=== PATIENT | female | born 1965 | race Caucasian/White ===

== ENCOUNTER 2023-01-08 14:18 | Outpatient (OUT) | payer OTHER, SELFPAY ==
--- NOTE | 2023-01-08 14:32 | US_ITS ---
[address] [address] Patient Name: BALA SULTANA MRN: [id number] date: 1965 Sex: F Assigned Patient Location: Current Patient Location: Accession/Order Number: [id number] Exam Date: 01/08/2023 14:31 Report Date: 01/09/2023 06:47 At the request of: YANNICK BATRES Procedure: US thyroid EXAMINATION: US thyroid HISTORY: Thyroid nodule E04.1 COMPARISON: No relevant comparison available. FINDINGS: RIGHT LOBE: Contain several small colloid cysts. Lobe size: 5.4 x 1.5 x 1.4 cm LEFT LOBE: Contains 2 separate 6 mm TR 3 nodules, one within superior pole, one within mid body. Several small colloid cysts, and a prominent 19 mm colloid cyst. Lobe size: 5.7 x 2.1 x 1.7 cm ISTHMUS: Contains a small colloid cyst. Thickness: 1 mm IMPRESSION: 1. The thyroid gland contains multiple benign-appearing colloid cysts and 2 small TR 3 nodules within the left lobe. Consider follow-up imaging in 3-5 years. TR3 (mildly suspicious): > 1.5 cm, follow-up ultrasound in 1, 3, and 5 years. > 2.5 cm, fine needle aspiration. Electronically authenticated by: JNENIFER NICOLAS Date: 01/09/2023 06:47
== END 2023-01-08 14:19 | disposition home or self-care (01) ==
LOC: US 14:20
PROVIDERS: PCP Family Medicine; Visit Provider Family Medicine
DX: E04.2 Nontoxic multinodular goiter (principal)
CPT/HCPCS: 76536

== ENCOUNTER 2023-02-05 10:33 | Outpatient (OUT) | payer OTHER, SELFPAY ==
--- NOTE | 2023-02-05 10:43 | XR_ITS ---
The [address] [address] Patient Name: BALA SULTANA MRN: [id number] date: 1965 Sex: F Assigned Patient Location: [facility] Current Patient Location: [facility] Accession/Order Number: [id number] Exam Date: 02/05/2023 11:05 Report Date: 02/05/2023 12:59 At the request of: YANNICK BATRES Procedure: XR lumbar spine 2-3V EXAMINATION: XR lumbar spine 2-3V HISTORY: Low Back Pain M54.50 ; acute left lumbar pain; no known injury COMPARISON: XR KUB 01/28/2020, XR L-spine 01/25/2016 FINDINGS: BONES: Moderate left convex curvature lumbar spine. Mild-moderate degenerative facet arthropathy L3-4 through L5-S1. No fracture or significant spondylolisthesis. DISC SPACES: Marked narrowing L2-3. Mild narrowing L3-4, L4-5. PARASPINOUS: Negative. No paraspinous abnormality is seen. OTHER: Negative. XR/XR lumbar spine 2-3V IMPRESSION: 1. L2-3 marked degenerative disc disease; progressed since prior studies. 2. Slight increase in levocurvature of lumbar spine. Electronically authenticated by: JENNIFER NICOLAS Date: 02/05/2023 12:59
== END 2023-02-05 10:34 | disposition home or self-care (01) ==
LOC: RAD 10:35
PROVIDERS: PCP Family Medicine; Visit Provider Family Medicine
DX: M54.50 Low back pain, unspecified (principal)
CPT/HCPCS: 72100

== ENCOUNTER 2023-02-11 04:31 | Emergency (ER) | payer OTHER, SELFPAY ==
[2023-02-11 04:36] VITALS: BP 155/103; PULSE 98; RESP 16; TEMP 36.6; O2SAT 98; BMI 23.7
--- NOTE | 2023-02-11 04:55 | ED_ITS ---
HPI - Back Pain/Injury General Chief Complaint: Back Pain/Injury Stated Complaint: BACK PAIN Time Seen by Provider: 02/11/23 04:48 Source: patient History of Present Illness HPI Narrative: This 57 year old female with a history of back pain presents for evaluation of 3 weeks of ongoing left flank pain. The patient states that approximately 3 weeks ago she was working in her garden and did not experience any pain. She got up to take a walk in her words and started to feel pain in her left flank. She has been seen by her family physician and had x-rays done. Her x-ray showed marked L2-L3 degenerative disc disease which has progressed since prior studies and a slight increase in the level curvature of the lumbar spine. She does have a history of kidney stones. She has taken a Medrol Dosepak 3 times and states that when she is taking the steroids it does help her somewhat however as it wears off she starts experiencing the pain again. She does have some mild nausea. She denies any dysuria or hematuria. There is no focal weakness numbness or tingling. She denies any chest pain or shortness of breath. She has no abdominal pain. She has not had any bowel or bladder dysfunction or constipation or incontinence. She has an appointment with Dr Marquis, neurosurgery at [facility] on Friday OARRs reviewed and shows no recent activity besides flexeril Related Data Home Medications Medication Instructions Recorded Confirmed methylprednisolone 4 mg tablets in mg 02/11/23 a dose pack sertraline 25 mg tablet (Zoloft) 12.5 mg PO DAILY 02/11/23 02/11/23 Allergies Allergy/AdvReac Type Severity Reaction Status Date / Time adhesive Allergy Intermediate Verified 02/11/23 04:42 Review of Systems ROS Status of ROS 10 or more systems reviewed and unremarkable except as noted in history and below [facility] Social History Smoking status: Never smoker Exam Narrative Exam Narrative: Nurses note and vital signs reviewed and patient is not hypoxic. General: The patient appears well, However she is uncomfortable and is on her knees bent over on the stretcher trying to stretch out her back, no respiratory distress Skin: Warm, dry, no pallor noted. There is no rash noted. Head: Normocephalic, atraumatic Eye: Normal conjunctiva, no drainage, EOMI. PERRL Ears, Nose, Mouth, and Throat: oral mucosa is moist. Cardiovascular: Regular Rate and Rhythm Respiratory: Patient is in no distress, no accessory muscle use, lungs are clear to auscultation, no wheezing, rales or rhonchi Back: No reproducible tenderness in the left flank area, no midline bony vertebral tenderness or step-off, no skin rash GI: Normal bowel sounds, no tenderness to palpation, no masses appreciated. No rebound, guarding, or rigidity noted. No tenderness along the distribution of the left ureter Musculoskeletal: The patient has no evidence of calf tenderness, no pitting edema, symmetrical pulses noted bilaterally Neurological: A&O x4, normal speech, upper and lower extremity strength and sensation is intact, no saddle anesthesia Psychiatric: Cooperative, mildly anxious Constitutional Vital Signs, click to edit/add: Last Vital Signs Temp 97.9 F 02/11/23 04:36 Pulse 98 H 02/11/23 04:36 Resp 16 02/11/23 04:36 BP 155/103 H 02/11/23 04:36 Pulse Ox 98 02/11/23 04:36 O2 Del Method Room Air 02/11/23 04:36 Course Vital Signs Vital signs: Vital Signs Temperature 97.9 F 02/11/23 04:36 Pulse Rate 98 H 02/11/23 04:36 Respiratory Rate 16 02/11/23 04:36 Blood Pressure 155/103 H 02/11/23 04:36 Pulse Oximetry 98 02/11/23 04:36 Oxygen Delivery Method Room Air 02/11/23 04:36 Temperature 97.9 F 02/11/23 04:36 Pulse Rate 98 H 02/11/23 04:36 Respiratory Rate 16 02/11/23 04:36 Blood Pressure 155/103 H 02/11/23 04:36 Pulse Oximetry 98 02/11/23 04:36 Oxygen Delivery Method Room Air 02/11/23 04:36 MDM - Back Pain/Injury MDM Narrative Medical decision making narrative: This 57-year-old female with chronic low back pain who has been seen in the past by neurosurgery presents for evaluation of 3 weeks of left flank and low back pain. She states she has not been able sleep for the last 2 days. There is no radiation into her buttocks, hips or lower legs. She recently had x-rays done that showed some narrowing at L2-L3 and L3-L4 and L4-L5. She has been on 3 Medrol Dosepaks prescribed by her family physician and referred to neurosurgery which she will see tomorrow. She denies any bowel or bladder dysfunction. She has no chest pain or shortness of breath. Her neuro exam and physical exam were benign however she was obviously uncomfortable. She does have a history of kidney stones and was thinking she may be passing a stone. Urinalysis was negative for blood or infection. CT scan of the lumbar spine which is included in the body this report shows degenerative changes in the lumbar spine and stones in her kidneys but none in the ureters and UA is negative for blood or infection. The patient was driving and I explained to her that I could not offer her any narcotic analgesics or strong muscle relaxants but she did call for a ride and was medicated with 4 mg of IM morphine, 5 mg of IM Valium, Zofran and 60 mg of IM Toradol. She was beginning to relax and feel better and was discharged home with her friend. She was given a prescription for percocet and has flexeril at home. Her CT scan also showed constipation and she was given a Rx for colace. She remains hemodynamically and neurologically stable for discharge and plans to call the neurosurgeon that she has seen in the past, and has an appointment with later this week and see if she can get in sooner. Medical Records Medical records narrative: The [address] [address] [address] Scan Report Signed Patient: BALA SULTANA MR#: [id number] : 1965 Acct:[id number] Age/Sex: 57 / F ADM Date: 02/11/23 Loc: ER Attending Dr: Ordering Physician: Roque Patel Date of Service: 02/11/23 Procedure(s): CT abdomen pelvis wo con Accession Number(s): [id number] cc: YANNICK BATRES ~ The [address] [address] Patient Name: BALA SULTANA MRN: [id number] date: 1965 Sex: F Assigned Patient Location: ER Current Patient Location: ER Accession/Order Number: [id number] Exam Date: 02/11/2023 05:00 Report Date: 02/11/2023 05:30 At the request of: ROQUE MARKER Procedure: CT abdomen pelvis wo con EXAM: CT abdomen pelvis wo con HISTORY: left flank pain symptoms for 3 weeks. History of kidney stones. COMPARISON: CT 08/01/2021. TECHNIQUE: Multiple axial CT images of the abdomen and pelvis were obtained without IV contrast. 2D coronal and sagittal MIP reformations were submitted for review. Dose reduction techniques were achieved by using automated exposure control and/or adjustment of mA and/or kV according to patient size and/or use of iterative reconstruction technique. FINDINGS: LUNG BASES: Visualized lung bases appear clear. No pleural effusion is identified. LYMPH NODES: No retroperitoneal, mesenteric or pelvic lymphadenopathy. ABDOMINAL AORTA: No aortic aneurysm identified. LIVER: Liver contour appears smooth. Low-density cyst in the right hepatic lobe measures 0.7 cm. BILIARY TREE AND GALLBLADDER: No intrahepatic or extrahepatic bile duct dilatation. Gallbladder is fluid distended without calcified gallstones. PANCREAS: Normal in size without masses or ductal dilatation. No peripancreatic inflammatory changes. SPLEEN: Normal in size without focal lesions. ADRENAL GLANDS: Normal bilaterally, without nodules. KIDNEYS/URINARY BLADDER: The kidneys appear symmetric in size. No parenchymal lesions identified. Several nonobstructing renal stones are seen bilaterally, the largest in the right measuring 4 mm. No ureteral stone or hydronephrosis identified. The urinary bladder appears unremarkable. GASTROINTESTINAL TRACT: Moderate stool is seen throughout the course of the colon. No bowel obstruction is identified. The stomach and duodenum appear unremarkable. Appendix appears normal. PERITONEAL CAVITY AND SURFACES: No free fluid. No free intraperitoneal air. REPRODUCTIVE ORGANS: Uterus and adnexa are unremarkable. ABDOMINAL WALL: Small noninflamed fat-containing umbilical hernia. OSSEOUS STRUCTURES: No aggressive appearing osseous lesions. No compression fracture is identified. Convex left curvature of the thoracolumbar spine. Moderate degenerative disc disease L2-3. CT/CT abdomen pelvis wo con IMPRESSION: 1. Bilateral nonobstructing renal stones. No ureteral stone or hydronephrosis. 2. Constipation. No bowel obstruction. 3. Normal CT appearance of the appendix. Lab Data Labs: Lab Results 02/11/23 Range/Units 05:35 Urine Color Lt. yellow (YELLOW) Urine Clarity Clear (CLEAR) Urine pH 7.0 (5.0-9.0) Ur Specific [place] 1.020 (1.005-1.025) Urine Protein Negative (NEG/TRACE) mg/dL Urine Glucose (UA) Negative (NEGATIVE) mg/dL Urine Ketones Negative (NEGATIVE) mg/dL Urine Occult Blood Trace-i (NEGATIVE) Urine Nitrite Negative (NEGATIVE) Urine Bilirubin Negative (NEGATIVE) Urine Urobilinogen 0.2 (0.2-1.0) EU/dL Ur Leukocyte Esterase Negative (NEGATIVE) Discharge Plan Discharge Chief Complaint: Back Pain/Injury Clinical Impression: Lumbar back pain, Thoracic back pain, Constipation Patient Disposition: Home, Self-Care Time of Disposition Decision: 05:53 Condition: Good Prescriptions / Home Meds: No Action methylprednisolone 4 mg tablets,dose pack sertraline [Zoloft] 25 mg tablet 12.5 mg PO DAILY Instructions: Constipation (ED), Thoracic Pain (ED), Back Pain (ED), Lower Back Exercises (ED) Stand Alone Forms: Portal Instructions Referrals: YANNICK BATRES [Primary Care Provider] - 1 week
[2023-02-11] MEDS: ONDANSETRON 4 MG RAPDIS TABLET SL (05:11)
[2023-02-11] MEDS: DIAZEPAM 5 MG/ML - 2 ML INJ SYRINGE IM (05:34)
[2023-02-11] MEDS: KETOROLAC TROMETHAMINE 60 MG/2 ML VIAL IM (05:35)
[2023-02-11] MEDS: MORPHINE SULFATE 4 MG/ML VIAL IM (05:36)
[2023-02-11 05:46] LABS: Bilirubin Urine NEGATIVE (NEGATIVE); Blood Urine TRACE-I (NEGATIVE); Clarity Urine CLEAR (CLEAR); Color Urine LT. YELLOW (YELLOW); Glucose Urine UA NEGATIVE (NEGATIVE); Ketones Urine NEGATIVE (NEGATIVE); Leukocyte Esterase Urine NEGATIVE (NEGATIVE); Nitrite Urine NEGATIVE (NEGATIVE); Protein Urine NEGATIVE (NEG/TRACE); Urobilinogen Urine 0.2 EU/dL (0.2-1.0)
[2023-02-11 05:56] LABS: WBC Urine 0-2 #/HPF (NONE SEEN)
[2023-02-11 05:57] LABS: Bacteria Urine NONE SEEN #/HPF (NONE SEEN); Cast Seen? NONE SEEN #/LPF (NONE SEEN); Crystals Seen? None Seen #/HPF (None Seen); Mucus Urine TRACE (NONE SEEN); Squamous Epithelial Cell Urine RARE #/LPF (NONE/RARE); Urine Culture Indicated NO
== END 2023-02-11 06:15 | disposition home or self-care (01) ==
PROVIDERS: Emergency Provider Emergency Medicine; PCP Family Medicine
DX: K59.00 Constipation, unspecified (principal); M54.50 Low back pain, unspecified; M54.6 Pain in thoracic spine; M51.36 Other intervertebral disc degeneration, lumbar region; Z87.442 Personal history of urinary calculi; Z79.899 Other long term (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 therapy
CPT/HCPCS: 74176; 81001; 96372; 99284

== ENCOUNTER 2023-03-05 11:06 | Outpatient (OUT) | payer OTHER, SELFPAY ==
--- NOTE | 2023-03-05 11:43 | XR_ITS ---
[address] [address] Patient Name: BALA SULTANA MRN: [id number] date: 1965 Sex: F Assigned Patient Location: [facility] Current Patient Location: [facility] Accession/Order Number: [id number] Exam Date: 03/05/2023 11:30 Report Date: 03/05/2023 12:04 At the request of: YANNICK BATRES Procedure: XR lumbar spine min 4V EXAM: XR lumbar spine min 4V HISTORY: Low Back Pain M54.50 COMPARISON: None. TECHNIQUE: 4 views Findings/impression: Mild levoconvex curvature of the mid lumbar spine. Maintained vertebral body heights. Multilevel endplate degenerative changes, disc disease, anterior spurring. No acute fracture. Nonobstructive bowel gas pattern. Electronically authenticated by: ZAK CLARKE Date: 03/05/2023 12:04
== END 2023-03-05 11:07 | disposition home or self-care (01) ==
LOC: RAD 11:10
PROVIDERS: PCP Family Medicine; Visit Provider Family Medicine
DX: M54.50 Low back pain, unspecified (principal)
CPT/HCPCS: 72110

== ENCOUNTER 2023-04-15 11:58 | Outpatient (OUT) | payer OTHER, SELFPAY ==
[2023-04-15 12:24] LABS: Basophils Percent Auto 0.5 % (0.2-2.0); Eosinophils Percent Auto 0.3 % (0.9-7.0); Hematocrit 41.5 % (36.0-48.0); Hemoglobin 13.5 g/dL (12.0-16.0); Immature Granulocytes Abs Auto 0.01 10^3/uL (0.00-0.03); Immature Granulocytes Pct Auto 0.2 % (0.0-0.5); Lymphocytes Absolute Auto 1.6 10^3/uL (1.2-3.8); Lymphocytes Percent Auto 25.4 % (20.5-60.0); Mean Corpuscular HGB Conc 32.5 g/dL (29.9-35.2); Mean Corpuscular Volume 92.2 fL (81.0-99.0); Mean Platelet Volume 10.5 fL (9.5-13.5); Monocytes Absolute Auto 0.6 10^3/uL (0.3-0.8); Monocytes Percent Auto 9.1 % (1.7-12.0); Neutrophils Absolute Auto 4.2 10^3/uL (1.4-6.5); Neutrophils Percent Auto 64.5 % (43.0-75.0); Platelet Count 231 10^3/uL (150-450); Red Cell Distribution Width 12.9 % (11.0-15.0); White Blood Count 6.5 10^3/uL (4.0-11.0)
[2023-04-15 12:57] LABS: Alanine Aminotransferase 24 U/L (14-59); Albumin Globulin Ratio 1.1; Albumin Level 4.1 g/dL (3.4-5.0); Alkaline Phosphatase 59 U/L (46-116); Anion Gap 8.9; Aspartate Amino Transferase 17 U/L (15-37); BUN Creatinine Ratio 21.4; Bilirubin Total 0.4 mg/dL (0.2-1.0); Calcium 8.5 mg/dL (8.5-10.1); Carbon Dioxide 29.5 mmol/L (21.0-32.0); Chloride 101 mmol/L (98-107); Estimated GFR (African America >60 (>=60); Estimated GFR (Non-African Ame >60 (>=60); Globulin 3.7 g/dL; Glucose 124 mg/dL (74-106); Magnesium 2.2 mg/dL (1.8-2.4); Potassium 3.4 mmol/L (3.5-5.1); Sodium 136 mmol/L (136-145); Total Protein 7.8 g/dL (6.4-8.2)
[2023-04-15 13:57] LABS: Vitamin B12 >6000.0 pg/mL (193.0-986.0)
[2023-04-16 14:09] LABS: EBV Ab VCA, IgM <36.0 U/mL (0.0-35.9); EBV Early Antigen Ab, IgG 23.1 U/mL (0.0-8.9); EBV Nuclear Antigen Ab, IgG >600.0 U/mL (0.0-17.9)
== END 2023-04-15 11:59 | disposition home or self-care (01) ==
LOC: LAB 12:03
PROVIDERS: PCP Family Medicine; Visit Provider Family Medicine
DX: Z79.899 Other long term (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 therapy (principal); E53.8 Deficiency of other specified B group vitamins; R25.2 Cramp and spasm; R20.2 Paresthesia of skin; E55.9 Vitamin D deficiency, unspecified; R53.83 Other fatigue
CPT/HCPCS: 36415; 80053; 82306; 82607; 82746; 83735; 85025; 86663; 86664; 86665

== ENCOUNTER 2023-04-22 07:29 | Outpatient (OUT) | payer OTHER, SELFPAY ==
[2023-04-22 08:04] LABS: Calcium 8.8 mg/dL (8.5-10.1); Carbon Dioxide 32.9 mmol/L (21.0-32.0); Chloride 101 mmol/L (98-107); Estimated GFR (African America >60 (>=60); Estimated GFR (Non-African Ame >60 (>=60); Glucose 90 mg/dL (74-106); Potassium 3.9 mmol/L (3.5-5.1); Sodium 139 mmol/L (136-145)
== END 2023-04-22 07:30 | disposition home or self-care (01) ==
LOC: LAB 07:30
PROVIDERS: PCP Family Medicine; Visit Provider Family Medicine
DX: E87.8 Other disorders of electrolyte and fluid balance, not elsewhere classified (principal)
CPT/HCPCS: 36415; 80048

== ENCOUNTER 2023-05-22 12:35 | Outpatient (OUT) | payer OTHER, SELFPAY ==
[2023-05-22 13:01] LABS: Carboxyhemoglobin 1.7 % (1.5-4.9)
[2023-05-22 13:18] LABS: Basophils Percent Auto 0.6 % (0.2-2.0); Eosinophils Percent Auto 0.2 % (0.9-7.0); Hematocrit 42.1 % (36.0-48.0); Hemoglobin 13.5 g/dL (12.0-16.0); Immature Granulocytes Abs Auto 0.01 10^3/uL (0.00-0.03); Immature Granulocytes Pct Auto 0.2 % (0.0-0.5); Lymphocytes Absolute Auto 1.2 10^3/uL (1.2-3.8); Lymphocytes Percent Auto 23.4 % (20.5-60.0); Mean Corpuscular HGB Conc 32.1 g/dL (29.9-35.2); Mean Corpuscular Hemoglobin 29.9 pg (26.7-34.0); Mean Corpuscular Volume 93.1 fL (81.0-99.0); Mean Platelet Volume 10.8 fL (9.5-13.5); Monocytes Absolute Auto 0.4 10^3/uL (0.3-0.8); Monocytes Percent Auto 8.5 % (1.7-12.0); Neutrophils Absolute Auto 3.3 10^3/uL (1.4-6.5); Neutrophils Percent Auto 67.1 % (43.0-75.0); Platelet Count 240 10^3/uL (150-450); Red Blood Count 4.52 10^6/uL (4.20-5.40); White Blood Count 4.9 10^3/uL (4.0-11.0)
[2023-05-22 13:47] LABS: Alanine Aminotransferase 24 U/L (14-59); Albumin Globulin Ratio 1.2; Albumin Level 4.1 g/dL (3.4-5.0); Alkaline Phosphatase 60 U/L (46-116); Anion Gap 13.4; Aspartate Amino Transferase 16 U/L (15-37); BUN Creatinine Ratio 17.6; Bilirubin Total 0.5 mg/dL (0.2-1.0); Calcium 8.9 mg/dL (8.5-10.1); Carbon Dioxide 29.4 mmol/L (21.0-32.0); Chloride 101 mmol/L (98-107); Estimated GFR (African America >60 (>=60); Estimated GFR (Non-African Ame >60 (>=60); Globulin 3.5 g/dL; Glucose 107 mg/dL (74-106); Phosphorus 3.2 mg/dL (2.6-4.7); Potassium 3.8 mmol/L (3.5-5.1); Sodium 140 mmol/L (136-145); Thyroid Stimulating Hormone 0.781 uIU/mL (0.358-3.740); Total Protein 7.6 g/dL (6.4-8.2)
[2023-05-23 12:08] LABS: Calcium, Ionized, Serum 4.9 mg/dL (4.5-5.6)
[2023-05-23 13:52] LABS: Free T4 1.28 ng/dL (0.76-1.46)
[2023-05-23 14:10] LABS: PTH, Intact 36 pg/mL (15-65)
[2023-05-23 14:28] LABS: Free T3 3.06 pg/mL (2.18-3.98)
[2023-05-26 14:08] LABS: Thyroglobulin Antibody <1.0 IU/mL (0.0-0.9); Thyroid Peroxidase (TPO) Ab 10 IU/mL (0-34)
== END 2023-05-22 12:36 | disposition home or self-care (01) ==
PROVIDERS: PCP Family Medicine; Visit Provider Family Medicine
DX: E83.51 Hypocalcemia (principal); E53.8 Deficiency of other specified B group vitamins; Z79.899 Other long term (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 therapy; R63.5 Abnormal weight gain; R25.3 Fasciculation; R25.1 Tremor, unspecified; R06.09 Other forms of dyspnea
CPT/HCPCS: 36415; 80053; 82330; 82375; 82607; 82746; 83050; 83970; 84100; 84439; 84443; 84481; 85025; 86376; 86800

== ENCOUNTER 2023-05-28 13:15 | Outpatient (OUT) | payer OTHER, SELFPAY | END 2023-05-28 13:16 | disposition home or self-care (01) | LOC: LAB 13:16 | PROVIDERS: PCP Family Medicine; Visit Provider Psychiatry & Neurology Neurology | DX: Z79.899 Other long term (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 therapy (principal) | CPT/HCPCS: 36415; 82728 ==

== ENCOUNTER 2023-07-14 06:56 | Outpatient (OUT) | payer OTHER, SELFPAY ==
--- NOTE | 2023-07-14 | US_ITS ---
The [address] [address] Patient Name: BALA SULTANA MRN: [id number] date: 1965 Sex: F Assigned Patient Location: US Current Patient Location: US Accession/Order Number: [id number] Exam Date: 07/14/2023 07:02 Report Date: 07/14/2023 07:42 At the request of: REZA GORMAN Procedure: US thyroid EXAMINATION: US thyroid HISTORY: Thyroid Nodule COMPARISON: 01/08/2023 TECHNIQUE: Sonographic images of the thyroid gland were obtained. FINDINGS: The right thyroid lobe measures 5.4 x 1.6 x 1.7 cm. Mildly heterogeneous echotexture with 2 focal nodules. The thyroid isthmus measures 2.4 mm. No focal nodule. The left thyroid lobe measures 6.0 x 1.8 x 1.7 cm. Multiple focal nodules. The 2 most suspicious nodules: Nodule 1: Left thyroid lobe. 2.1 x 1.3 x 0.7 cm. Mixed solid and cystic, hypoechoic, wide, smooth margins, no calcifications. No internal blood flow. TR 3 Nodule 2. Left thyroid lobe. 0.8 x 0.6 x 0.4 cm. Solid, hypoechoic, wide, smooth margins, no calcifications. TR 4 US/US thyroid IMPRESSION: Multiple thyroid nodules. No follow-up required TI-RADS: The [employer] TI-RADS committee's white paper recommendations for thyroid lesions classified as TR4 (moderately suspicious) are listed below: > 1.0 cm. Follow-up ultrasound in 1, 2, 3, and 5 years. > 1.5 cm. FNA. J. Am Saul Radiol 2017;14:[id number]. Electronically authenticated by: YANNICK REA Date: 07/14/2023 07:42
--- OUTSIDE RECORDS SUMMARY | 2023-07-14 06:58 | XMS_ITS | CCD ---
Author Name Unknown Address [address] [facility] [address] [place] [address] Organization [facility] Care Team Providers Care Coroner Technician Name Role Phone Yannick Velázquez Primary Care Provider Yannick Velázquez Unavailable Yannick Velázquez Unavailable Shara Layton Unavailable SELAM Layton Attending Provider NO FAMILY, PHYSICIAN Primary Care Provider Unava ilable GISEL, DR LANIER Admitting Unavailable GIRKAREN, DR LANIER Attending Unavailable GIRVIN, DR LANIER Primary Care Unavailable GIRVIN, DR LANIER Consulting Unavailable MARIA ISABEL, DR JENNIFER Ennis Consulting Unavailable GIRVIN, DR LANIER Admitting Unavailable GIRVIN, DR LANIER Attending Unavailable GIRVIN, DR LANIER Primary Care Unavailable GIRVIN, DR LANIER Consulting Unavailable WEST, DR YANNICK Louis Consulting Unavailable GIRVIN, DR LANIER Admitting Unavailable GIRVIN, DR LANIER Attending Unavailable GIRVIN, DR LANIER Primary Care Unavailable GIRVIN, DR LANIER Consulting Unavailable GIRVIN, DR LANIER Primary Care Unavailable MARKER, DR NEVAREZ Admitting Unavailable MARKER, DR NEVAREZ Attending Unavailable MARKER, DR NEVAREZ Consulting Unavailable SAID, MARGO Consulting Unavailable DO Yannick Velázquez Primary Care Provider DO Yannick Velázquez Attending Provider Victorina Martinez Unavailable DO Yannick Velázquez Primary Care Provider DO Yannick Velázquez Attending Provider Tonia Sandoval Unavailable SHER Blandon Emergency Provider [phone] MD Victorina Martinez Attending Provider [phone] Yannick Velázquez Primary Care Unavailable Victorina Martinez Admitting Unavailable Victorina Martinez Attending Unavailable Yannick Velázquez Admitting Unavailable Yannick Velázquez Primary Care Unavailable Yannick Velázquez Attending Unavailable Yannick Velázquez Primary Care Unavailable Yannick Velázquez Attending Unavailable Gisel, Yannick Admitting Unavailable Yannick Velázquez Primary Care Unavailable Pelon Blandon Admitting Unavailable Pelon Blandon Attending Unavailable Yannick Velázquez DO Primary Care Unavailab Farrukh Reinoso III, MD Attending U navailable Allergies Allergy Classification Reported Allergen(s) Allergy Type Date of Onset Reaction(s) Facility (1 source) Adhesive Tape-Silicones Drug Allergy 09-07-19 21 Rash, Hives [facility] (20 sources) Nitrofurantoin; Translations: [Macrobid] Drug Allergy diarrhea / 2020 [facility] (20 sources) steri-strips Propensity to adverse reactions rash [facility] [employer] Other (1 source) Adhesive bandage Drug allergy (disorder) 12-17-19 19 [facility] (20 sources) NITROFURANTOIN, MACROCRYSTALS / Nitrofurantoin, Monohydrate Drug Allergy diarrhea [facility] [employer] Other (1 source) steri stips; Translations: [steri stips] Propensity to adverse reactions (disorder) [facility] Medications Current Medications Medication Drug Class(es) Dates Sig (Normalized) Sig (Original) acetaminophen 325 mg / oxyCODONE hydrochloride 5 mg oral tablet (2 sources) Opioid Agonist Start: 02-23-2023 take 1 tablet by mouth every four hours Oxycodone-Acetami nophen Active 1 TAB PO Q4H February 23, 2023 12:00am ALPRAZolam 0.25 mg oral tablet (20 sources) Benzodiazepine Start: 02-27-2017 Xanax 0.25 MG 1/2 to 1 tablet Orally q8-12 hrs prn Feb, Active amoxicillin 875 mg oral tablet (4 sources) Penicillin-class Antibacterial Start: 12-24-2021 take 1 tablet by mouth every twelve hours Amoxicillin 875 MG 1 tablet Orally Twice a day Dec, Active BD Luer-Chasity Syringe 25G X 5/8 3 ML (20 sources) BD Luer-Chasity Syri nge 25G X 5/8 3 ML USE DIRECTED WITH INJECTION Active BD Luer-Chasity Syri nge 25G X 5/8 3 ML USE DIRECTED WITH INJECTION for 28 days Active BD Luer-Chasity Syri nge 25G X 5/8 3 ML USE DIRECTED WITH B12 INJECTION Active cholecalciferol 0.025 mg chewable tablet (5 sources) Vitamin D Start: 11-09-2019 take 1 tablet by mouth once daily Cholecalciferol (Vitamin D3) (Vitamin D3) 25 mcg (1,000 unit) Tablet,Chewable Active 1000 UNIT PO Daily November 09, 2019 12:00am ciprofloxacin 500 mg oral tablet (2 sources) Quinolone Antimicrobial Start: 03-01-2020 take 1 tablet by mouth every twelve hours Cipro 500 MG 1 tablet Orally bid for 5 days Feb, Active ferrous sulfate 325 mg oral tablet (1 source) take 1 tablet by mouth every twenty-four hours Ferrous Sulfate 325 (65 Fe) MG 1 tablet Orally qd Active fluticasone propionate 0.05 mg/actuat metered dose nasal spray (13 sources) Corticosteroid Start: 08-06-2021 take 2 spray(s) nasal route once daily Fluticasone Propionate 50 MCG/ACT 2 sprays each nostril Nasally Once a day Jul, Active Folate (20 sources) Folate Not-Takin g Folate Active folic acid 0.8 mg / intrinsic factor 20 mg / vitamin b12 0.5 mg oral tablet (5 sources) Vitamin B12 Start: 11-09-2019 take 1 tablet by mouth once daily Vit B14-Cvjkzhk Fact-Fa Cmb #2 (Intrinsi B60-Huvrdm) 500-20-800 mcg-mg-mcg Tablet Active 1 TAB PO Daily November 09, 2019 12:00am Magnesium (20 sources) Start: 11-09-2019 take 1 tablet by mouth once daily Magnesium Active 1 TAB PO Daily November 08, 2019 11:00pm Start: 11-09-2019 take 1 tablet by erika th once daily Magnesium Active 1 TAB PO Daily November 09, 2019 12:00am Magnesium 400 MG as directed Orally Active predniSONE 10 mg oral tablet (2 sources) Start: 02-23-2023 take 60 mg by mouth once daily, then take 40 mg by mouth once daily, then take 20 mg by mouth once daily, then take 10 mg by mouth once daily Prednisone Active 10 MG PO Daily February 23, 2023 12:00am 60mg daily for three days, 40mg daily for three days, 20mg daily for three days, 10mg daily for three days. Selenium (3 sources) Selenium Active Syringe 25G X 5/8 3 ML (2 sources) Syringe 25G X 5/ 8 3 ML as directed with B12 injection Active Completed/Discontinued Medications Medication Drug Class(es) Dates Sig (Normalized) Sig (Original) azithromycin 250 mg oral tablet (6 sources) Macrolide Antimicrobial Start: 06-24-2022 Azithromycin 250 MG 2 tablets on day 1 Orally then take 1 tab daily on days 2-5 for 5 days Jun, Not-Taking cefTRIAXone (20 sources) Cephalosporin Antibacterial Start: 12-31-2013 Rocephin 500 mg Dec, 1 grm cetirizine hydrochloride 10 mg oral tablet (20 sources) Histamine-1 Receptor Antagonist Start: 01-09-2022 ZyrTEC Allergy 10 MG 1 tablet Orally 1-3 times a day prn Jan, Not-Taking cyclobenzaprine hydrochloride 10 mg oral tablet (19 sources) Muscle Relaxant Start: 01-21-2023 take 1 tablet by mouth every twenty-four hours Cyclobenzaprine HCl 10 MG 1 tablet at bedtime as needed Orally Once a day for 7 days Jan, Not-Taking methocarbamol 750 mg oral tablet (15 sources) Muscle Relaxant Start: 02-15-2023 take 1 tablet by mouth twice daily as needed Methocarbamol 750 MG 1 tablet Orally bid prn for 14 days Feb, Not-Taking Methylcobalamin (20 sources) Methylcobalamin weekly Not-Taking Methylcobalamin weekly Active methylPREDNISolone 4 mg oral tablet (20 sources) Corticosteroid Start: 01-21-2023 methylPREDNISo lone 4 MG as directed Orally with food for 6 days Jan, Not-Taking Medrol (Darwin) 4 M G as directed Orally for 6 days Not-Taking sertraline 25 mg oral tablet (20 sources) Serotonin Reuptake Inhibitor Start: 08-02-2020 sertraline (ZOLOFT) 25 mg tablet Take 25 mg by mouth. 0 08/02/2020 Active Start: 06-15-2019 End: 11-09-2019 take 1 tablet by mouth once daily Sertraline (Zoloft) 25 mg Tablet Discontinued 25 MG PO Daily June 15, 2019 1:00am November 09, 2019 1:09pm take 0.5 tablet by m outh once daily Zoloft 25 MG 1/2 tablet Orally Once a day for 90 days Active Comment on above: Take 25 mg by mouth. tobramycin 3 mg/ml ophthalmic solution (9 sources) Aminoglycoside Antibacterial Start: 04-10-20 take 2 drop(s) into the eye(s) four times daily Tobramycin 0.3 % 2 drops Ophthalmic in right eye four times a day for 5 days Apr, Not-Taking Toradol 30 mg/ml (20 sources) Start: 01-22-20 Toradol 30 mg/ml Jan, 30 mg traMADol hydrochloride 50 mg oral tablet (17 sources) Opioid Agonist Start: 02-16-20 take 1 tablet by mouth every twelve hours traMADol HCl 50 MG 1 tablet as needed Orally bid for 14 days Feb, Not-Taking triamcinolone acetonide 40 mg/ml injectable suspension (20 sources) Corticosteroid Start: 01-22-20 Kenalog-40 Jan, 40 mg vitamin b 12 1 mg/ml injectable solution (19 sources) Vitamin B12 Start: 09-05-19 cyanocobalamin 1,000 mcg/mL Start: 11-09-2019 inject 1000 ug by in tramuscular injection every 30 days Cyanocobalamin (Vitamin B-12) Active 1000 MCG IM Q30D November 09, 2019 12:00am Cyanocobalamin 1 000 MCG/ML INJECT 1 ML ONCE A WEEK Active Problems Active Problems Problem Classification Problem Date Documented Date Episodic/Chronic Anxiety disorders (20 sources) Anxiety; Translations: [Anxiety disorder, unspecified] Onset: 06-11-20 Resolved : 02-16-20 22 Chronic Calculus of urinary tract (20 sources) Kidney stone; Translations: [Calculus of kidney] Onset: 08-03-19 Episodic Cardiac dysrhythmias (1 source) Tachycardia, unspecified Episodi c Deficiency and other anemia (5 sources) Nutritional anemia; Translations: [Vitamin B12 deficiency anemia, unspecified] 07-06-2019 Episodic Diseases of white blood cells (20 sources) Leukopenia; Translations: [Decreased white blood cell count, unspecified] Chronic Fluid and electrolyte disorders (2 sources) Hypokalemia Episodic Genitourinary symptoms and ill-defined conditions (9 sources) Dysuria; Translations: [Nocturia] Onset: 09-07-1909-06-2020 Episodic Inflammation; infection of eye (except that caused by tuberculosis or sexually transmitteddisease) (20 sources) Keratoconjunctivitis sicca, not specified as Sjogren's; Translations: [Keratoconjunctivitis sicca, not specified as Sjogren's, bilateral] Chronic Inflammation; infection of eye (except that caused by tuberculosis or sexually transmitteddisease) (1 source) Unspecified conjunctivitis Episodic Malaise and fatigue (1 source) Other fatigue Episodic Menstrual disorders (20 sources) Amenorrhea; Translations: [Amenorrhea, unspecified] Chronic Mood disorders (20 sources) Depressive disorder; Translations: [Major depressive disorder, single episode, unspecified] Chronic Nausea and vomiting (1 source) Nausea Episodic Nutritional deficiencies (20 sources) Vitamin D deficiency; Translations: [Vitamin D deficiency, unspecified] Chronic Nutritional deficiencies (17 sources) Deficiency of other specified B group vitamins; Translations: [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] Onset: 09-11-19 Resolved : 09-11-19 Episodic Other aftercare (8 sources) Other intermediate (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 therapy; Translations: [OTH PULVERIZER CURRENT DRUG THERAPY] Onset: 12-12-19 Resolved : 12-12-19 Episodic Other circulatory disease (2 sources) Other specified symptoms and signs involving the circulatory and respiratory systems; Translations: [Other specified symptoms and signs involving the circulatory and respiratory systems] Onset: 01-03-20 Episodic Other connective tissue disease (1 source) Other specified soft tissue disorders Episodic Other connective tissue disease (2 sources) Pain in right foot; Translations: [Pain in right foot] Onset: 02-24-20 Episodic Other connective tissue disease (1 source) Pain in left foot; Translations: [Pain in left foot] Onset: 02-24-20 Episodic Other connective tissue disease (1 source) Cramp and spasm Episodic Other diseases of bladder and urethra (20 sources) Spasm of bladder; Translations: [Other specified disorders of bladder] Chronic Other gastrointestinal disorders (20 sources) Constipation; Translations: [Constipation, unspecified] Episodic Other gastrointestinal disorders (2 sources) Constipation, unspecified; Translations: [CONSTIPATION UNSPECIFIED] Onset: 07-06-20 Episodic Other hereditary and degenerative nervous system conditions (20 sources) Restless legs; Translations: [Restless legs syndrome] Chronic Other hereditary and degenerative nervous system conditions (3 sources) Restless legs syndrome Chronic Other lower respiratory disease (1 source) Other forms of dyspnea Episodic Other nervous system disorders (5 sources) Peripheral nerve disease ; Translations: [Polyneuropathy, unspecified] 06-15-2019 Chronic Other nervous system disorders (1 source) Other chronic pain; Translations: [OTHER CHRONIC PAIN] Onset: 08-03-19 Chronic Other nervous system disorders (20 sources) Chronic pain; Translations: [Other chronic pain] Chronic Other nervous system disorders (1 source) Other chronic pain; Translations: [Other chronic pain] Onset: 02-28-20 Chronic Other nervous system disorders (3 sources) Neuropathy; Translations: [Polyneuropathy, unspecified] Chronic Other nervous system disorders (1 source) Polyneuropathy, unspecified Chronic Other nervous system disorders (20 sources) Abnormal involuntary movement; Translations: [Fasciculation] Episodic Other nervous system disorders (20 sources) Paresthesia; Translations: [Paresthesia of skin] Episodic Other nervous system disorders (20 sources) Spasmodic movement; Translations: [Fasciculation] Episodic Other nervous system disorders (3 sources) Paresthesia of skin; Translations: [Paresthesia of skin] Onset: 02-24-20 Episodic Other nervous system disorders (1 source) Fasciculation Episodic Other nervous system disorders (1 source) Anesthesia of skin Episodic Other nervous system disorders (1 source) Tremor, unspecified Episodic Other nutritional; endocrine; and metabolic disorders (20 sources) Hypocalcemia; Translations: [Hypocalcemia] Chronic Other nutritional; endocrine; and metabolic disorders (20 sources) Hypomagnesemia; Translations: [Hypomagnesemia] Chronic Other nutritional; endocrine; and metabolic disorders (1 source) Hypocalcemia Chronic Other nutritional; endocrine; and metabolic disorders (5 sources) Abnormal weight gain; Translations: [ABNORMAL WEIGHT GAIN] Onset: 09-11-19 Resolved : 01-10-20 Episodic Other nutritional; endocrine; and metabolic disorders (2 sources) Abnormal weight loss Episodic Other screening for suspected conditions (not mental disorders or infectious disease) (2 sources) Encounter for screening mammogram for malignant neoplasm of breast; Translations: [Abnormal level of blood mineral] Episodic Other skin disorders (1 source) Disorder of the skin and subcutaneous tissue, unspecified Episodic Other upper respiratory disease (20 sources) Allergic rhinitis; Translations: [Allergic rhinitis, unspecified] Chronic Other upper respiratory disease (1 source) Allergic rhinitis, unspecified Onset: 01-10-20 Resolved : 01-10-20 Chronic Other upper respiratory infections (1 source) Acute sinusitis, unspecified Episodic Prolapse of female genital organs (20 sources) Cystocele; Translations: [Midline cystocele] Onset: 09-07-19 21 09-06-2020 Chronic Residual codes; unclassified (20 sources) Insomnia; Translations: [Insomnia, unspecified] Episodic Residual codes; unclassified (1 source) Family history of malignant neoplasm of ovary Episodic Spondylosis; intervertebral disc disorders; other back problems (20 sources) Degeneration of intervertebral disc; Translations: [Other intervertebral disc degeneration, lumbar region] Chronic Spondylosis; intervertebral disc disorders; other back problems (3 sources) Spinal stenosis, site unspecified; Translations: [Nerve root disorder] Episodic Thyroid disorders (20 sources) Thyroid nodule; Translations: [Nontoxic single thyroid nodule] Chronic Unclassified (1 source) LOW BACK PAIN, UNSPECIFIED; Translations: [LOW BACK PAIN, UNSPECIFIED] Onset: 08-03-19 Unclassified (1 source) Low back pain, unspecified; Translations: [Low back pain, unspecified] Onset: 08-28-19 23 Urinary tract infections (1 source) Cystitis, unspecified without hematuria Episodic Past or Other Problems Problem Classification Problem Date Documented Da te Episodic/Chronic Abdominal pain (5 sources) Unspecified abdominal pain; Translations: [UNSPECIFIED ABDOMINAL PAIN] Onset: 06-11-2021 Resolved: 06-11-2021 Episodic E Codes: Natural/environment (1 source) Bitten or stung by nonvenomous insect and other nonvenomous arthropods, initial encounter Onset: 01-09-2022 Resolved: 01-09-2022 Episodic Other injuries and conditions due to external causes (1 source) Unspecified injury of right foot, initial encounter Onset: 01-28-2022 Resolved: 01-28-2022 Episodic Other non-traumatic joint disorders (6 sources) Pain in left knee; Translations: [PAIN IN LEFT KNEE] Onset: 07-06-2022 Resolved: 01-11-2022 Episodic Other non-traumatic joint disorders (1 source) Effusion, left knee; Translations: [EFFUSION LEFT KNEE] Onset: 01-15-2022 Episodic Residual codes; unclassified (1 source) Insomnia, unspecified Onset: 06-11-2021 Resolved: 06-11-2021 Episodic Unclassified (1 source) Cough R05.9 Onset: 01-09-2022 Resolved: 01-09-2022 Unclassified (10 sources) Lumbar pain M54.50 Results Test Name Value Interpretation Reference Range Facility Neurosurgery Office/Clinic N kishor 05-27-2023 Neurosurgery Office/Clinic Note Chief Complaint Back follow up-MRI @ [facility] 03/29 Physical Exam Vitals & Measurements HR: 90 (Peripheral) BP: 149/99 HT: 178 cm WT: 70.5 kg WT: 70.5 kg (Dosing) BMI: 22.25 Additional Vitals BP Position/Location: Sitting, Right arm Assessment/Plan 1. Numbness of legs 2. Muscle twitching 3. Lumbar degenerative disc disease Primary provider: yannick velázquez Referring provider: [] Other providers: Reason for consultation: lumbar History of present illness: Very pleasant 54-year-old right-handed female who is generally healthy who previously saw a neurosurgeon many years ago and was told that she had the back of an 81-year-old . The patient has noted low back pain that makes it difficult for her to sleep over the last 10 years and she has suffered from chronic insomnia. In September of this year, she developed urinary tract infection symptoms and presented to the emergency room. She was given Macrobid with some transient benefit. Her symptoms then recurred which included urgency and frequency. She had 5 separate urinalysis which were negative. She visited her holistic provider who suggested she may have an occult infection with Streptococcus. A DNA probe was performed which was positive for Streptococcus. She subsequently went through treatment and has noted significant improvement of her urinary urgency and frequency which proved quite troubling at night when she would attempt to sleep. She also noted some sciatica type syndrome on the right side during the summer. This is subsequently resolved. The patient indicates that her urologist who previously performed a urethral dilation on her wondered if her urinary symptoms could be from her lumbar region and MRI was performed and hence, neurosurgical consultation. Currently, the patient has low level lumbar discomfort on a daily basis. No radicular syndrome. No paresthesias or numbness though she has had intermittent symptoms in the past. She finds that her overall wellbeing has been affected by her diet and she has restricted herself from wheat products/gluten and attempted healthier diet from her previously standard [place] diet and noted significant improvement in sense of wellbeing and energy levels. The patient's urinary symptoms have also improved by at least 90%. She still has difficulty with sleeping. She did have 2 sessions of physical therapy for her bladder during the summer which did seem to help. She does note that when she does exercise (not routine), she does seem to have improvement of her back difficulties and sense of wellbeing/comfort. She has no significant cervicalgia or thoracic pain syndrome. She has no radicular syndrome in the upper or lower extremities nor in the trunk or abdomen. The patient does note 2 years of intermittent jerking such as 1 jerk of an arm or leg. She was concerned that she could be suffering from Parkinson's or ALS/Camryn Gehrig's disease and did visit with neurology dispelling those concerns. The patient does identify when she gets a good night sleep, she has improvement Previously, the patient indicates that since having magnesium level checked and found to be low and use of ionic supplementation, her twitching has nearly resolved. She underwent physical therapy and initially stated that she had no benefit, but later in the visit noted that she was doing well until the last couple of days when she developed some pain in her abdominal musculature and mid abdomen. She also notes a 24-hour history of right-sided paravertebral lumbar pain with no radicular pain. Denies paresthesias or numbness which have resolved from previously. No motor weakness. Her symptoms do not limit her ability to perform usual activities and she does not believe that she requires any aggressive intervention. Reports that she is having modest or no midline low back pain. No claudicatory symptoms. Patient does state that her anxiety has been high as of late and she is on Wellbutrin which provide some benefit. She cannot specify what is generating anxiety. She also notes poor sleep habits even though she received a new mattress. Today's visit: Patient notes onset of low back pain in February which prompted her to visit a neurosurgeon at [facility]. An MRI was ordered and no surgical disease was noted by the surgeon. In the interim, patient has had resolution of her back pain but simultaneously developed numbness and tingling in her feet with intermittent vermiculoform quality, patient notes bugs crawling underneath my skin . She also notes concomitant twitching of her feet and leg muscles but relative sparing of her trunk and upper extremities as well as face. No subjective weakness to speak of. No falls. Patient notes that her thyroid is borderline and believes that this may have a role in her current syndrome. The patient notes that she had similar dysesthesias when she had COVID. She also states her anxiety has been aggravated with tremulousness. She has researched on the Internet conditions such as A (more content not included)... Normal [facility] MR lumbar spine wo conon MR lumbar spine wo con [facility] [place] [address] [place] [address] MRI Report Signed Patient: Edna Sultana MR#: [id number] : 1965 Acct:[id number] Age/Sex: 57 / F ADM Date: 02/27/23 Loc: Room: Type: [facility] Attending Dr: Victorina Martinez MD Copies to: Victorina Martinez MD Ordering Provider: Victorina Martinez MD Date of Service: 02/27/23 MR/MR lumbar spine wo con: G89.29, M51.36, M51.36 MR lumbar spine wo con 02/27/2023 7:44 AM SIGNS AND SYMPTOMS: Chronic low back pain with tingling in feet bilaterally PROTOCOL: Multiplanar multisequence MR images of the lumbar spine were obtained without IV contrast COMPARISON: 08/28/2022 FINDINGS: The bones of the lumbar spine are in anatomic alignment. There is preservation of vertebral body heights. There is severe disc height loss at L2-L3 with mild disc height loss throughout otherwise. There is Schmorl's node formation in the inferior endplate of L3 and superior endplate of L2. There is Modic type I endplate edema at L2-L3. There is a small Tarlov cyst on the right at S2-S3 level.. The conus terminates at the superior endplate of the L1 vertebral body level. No epidural or paraspinous fluid collection is appreciated. At T12-L1: There is a normal disc, central canal, and neural foramen. At L1-L2: There is a normal disc, central canal, and neural foramen. At L2-L3: There is a circumferential disc bulge with facet hypertrophy. There is mild to moderate spinal canal narrowing with mild bilateral neural foraminal stenosis. At L3-L4: There is a broad-based disc bulge with facet hypertrophy. There is mild spinal canal narrowing with mild bilateral neural foraminal narrowing. At L4-L5: There is a broad-based disc bulge with a more focal left foraminal and lateral zone component. There is facet facet hypertrophy. There is moderate spinal canal stenosis with moderate left and mild right neural foraminal narrowing. At L5-S1: There is a broad-based disc bulge with facet hypertrophy. There is mild endplate osteophyte formation left greater than right with accompanying facet hypertrophy. There is mild left neural foraminal narrowing and mild spinal canal narrowing. MR/MR lumbar spine wo con IMPRESSION: At L2-L3: There is a circumferential disc bulge with facet hypertrophy. There is mild to moderate spinal canal narrowing with mild bilateral neural foraminal stenosis. This is similar to the prior exam. At L3-L4: There is a broad-based disc bulge with facet hypertrophy. There is mild spinal canal narrowing with mild bilateral neural foraminal narrowing. This is similar to the prior exam. At L4-L5: There is a broad-based disc bulge with a more focal left foraminal and lateral zone component. There is facet facet hypertrophy. There is moderate spinal canal stenosis with moderate left and mild right neural foraminal narrowing. This is similar to the prior exam. At L5-S1: There is a broad-based disc bulge with facet hypertrophy. There is mild endplate osteophyte formation left greater than right with accompanying facet hypertrophy. There is mild left neural foraminal narrowing and mild spinal canal narrowing. This is similar to the prior exam. Impression dictated by: Ashish Alvares M.D.02/27/2023 12:35 PM Dictation Location: [place] [address] Transcribed By: [facility] 02/27/23 1235 Dictated By: Ashish Alvares II, MD 02/27/23 1227 Signed By: 02/27/23 1235 [facility] Urinalysis - AUTOMATEDon Appearance (U) clear [place] [employer] Other Bilirubin Ql (U) Negative [employer] Other Color (U) light yellow [employer] Other Glucose Ql (U) Negative [employer] Other Hemoglobin Ql (U) trace-intact [employer] Other Ketones Ql (U) Negative [employer] Other Leukocyte esterase Test strip Ql (U) Negative [employer] Other Nitrite Ql (U) Negative [employer] Other pH (U) 7.5 [pH] [employer] Other Protein Ql (U) Negative [employer] Other Specific gravity (U) [Rel density] 1.015 [employer] Other Urobilinogen (U) [Mass/Vol] 0.2 mg/dL [employer] Other Urinalysis - AUTOMATED [employer] Other US abdomen limitedon 023 US abdomen limited [facility] [address] Ultrasound Report Signed Patient: Edna Sultana MR#: [id number] : 1965 Acct:[id number] Age/Sex: 57 / F ADM Date: 01/02/23 Loc: Room: Type: [facility] Attending Dr: Yannick Velázquez DO Ordering Provider: Yannick Velázquez DO Date of Service: 01/02/23 US/US abdomen limited: SOFT TISSUE DISORDER Copies to: Yannick Velázquez DO Soft tissue ULTRASOUND: CLINICAL HISTORY: Left upper quadrant lump for 4 months. COMPARISON: None TECHNIQUE: Grayscale and color Doppler images of the left upper quadrant were obtained. FINDINGS: In the area of concern involving left upper quadrant, prominent soft tissue is present measuring approximately 4.9 x 1.1 x 3.1 cm. No fluid collection or hernia. US/US abdomen limited IMPRESSION: PROMINENT SOFT TISSUE IS PRESENT MEASURING 4.9 X 1.1 X 3.1 CM IN THE AREA OF CONCERN INVOLVING THE LEFT UPPER QUADRANT. FINDING LIKELY REPRESENTS A LIPOMA. CORRELATION WITH PHYSICAL EXAM IS SUGGESTED.. Impression dictated by: Pranay Thomson Jr., D.ORony01/02/2023 11:07 AM Dictation Location: [place] [address] Tech: Nuha Fisher Transcribed By: RODERICK 01/02/23 110 Dictated By: Pranay Thomson Jr, DO 01/02/23 1105 Signed By: 01/02/23 110 Normal [facility] US carotid doppler BIon 12-06 US carotid doppler BI [facility] [place] [address] [place] [address] Ultrasound Report Signed Patient: Edna Sultana MR#: [id number] : 1965 Acct:[id number] Age/Sex: 57 / F ADM Date: 01/02/23 Loc: Room: Type: [facility] Attending Dr: Yannick Velázquez DO Ordering Provider: Yannick Velázquez DO Date of Service: 01/02/23 US/US carotid doppler BI: Carotid bruit Copies to: Yannick Velázquez DO CAROTID DUPLEX INDICATION: Left carotid bruit PROCEDURE: Color-flow duplex scanning is used to interrogate the extracranial carotid arterial system, as well as both vertebral arteries. The proximal right internal carotid artery shows a highest peak systolic velocity of 83.9 cm/s with an end-diastolic velocity of 36.7 cm/s . The mid internal carotid artery measures 113 cm/s peak systolic with an end-diastolic velocity of 53.4 cm/s . The distal segment measures 99.4 cm/s peak systolic with an end diastolic velocity of 37.3 cm/s . The velocities of the right common carotid artery are 103 cm/s peak systolic and 24.9 cm/s end- diastolic proximally and 101 cm/s peak systolic and 32.9 cm/s end-diastolic distally. The peak systolic velocity ratio of the internal to the common carotid artery is 1.1 . The right external carotid artery measures 80.1 cm/s peak systolic. The right vertebral artery is patent at 40.8 cm/s peak systolic and with antegrade flow. The proximal left internal carotid artery shows a highest peak systolic velocity of 101 cm/s with an end-diastolic velocity of 35.4 cm/s . The mid internal carotid artery measures 78.3 cm/s peak systolic with an end-diastolic velocity of 36 cm/s . The distal segment measures 102 cm/s peak systolic with an end diastolic velocity of 46.6 cm/s . The velocities of the left common carotid artery are 102 cm/s peak systolic and 32.3 cm/s end-diastolic proximally and 95.7 cm/s peak systolic and 28.6 cm/s end-diastolic distally. The peak systolic velocity ratio of the internal to the common carotid artery is 1 . The left external carotid artery measures 69 cm/s peak systolic. The left vertebral artery is patent at 78.3 cm/s peak systolic with antegrade flow. Incidentally noted are bilateral thyroid nodules which are heterogenous. The largest one on the right side is 8 mm x 5 mm x 7 mm. The largest one on the left is 2 cm x 2 cm x 0.7 cm US/US carotid doppler BI IMPRESSION: NO HEMODYNAMICALLY SIGNIFICANT STENOSIS OF EITHER EXTRACRANIAL INTERNAL CAROTID ARTERY. BOTH VERTEBRAL ARTERIES ARE PATENT WITH ANTEGRADE FLOW. Thyroid abnormality as described above Impression dictated by: Lukas Schultz M.D.01/02/2023 4:33 PM Dictation Location: [place] [address] Tech: Nuha Fisher Transcribed By: RODERICK 01/02/23 1633 Dictated By: Lukas Schultz MD 01/02/23 1632 Signed By: 01/02/23 1633 [facility] MR lumbar spine wo [facility] MR lumbar spine wo [facility] [place] [address] XRay Report Signed Patient: Edna Sultana MR#: [id number] : 1965 Acct:[id number] Age/Sex: 56 / F ADM Date: 08/28/22 Loc: MR Room: Type: [facility] CLI Attending Dr: Yannick Velázquez DO Copies to: Yannick Velázquez DO Ordering Provider: Yannick Velázquez DO Date of Service: 08/28/22 MR/MR lumbar spine wo con: M54.50 M48.0 M51.35 ([id number]) XR/XR pre/post mri xray: PRE MRI OF THE LUMBAR CLINICAL DATA: Chronic back pain with bilateral toe numbness. No injury. PRE-MRI LUMBAR SPINE - 2 views COMPARISON: 05/11/2020 Standing AP and lateral views were obtained. 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 There are no developing fractures. There is still slight retrolisthesis of L2 on L3, L3 on L4 and L4 and L5. There is mild disc space narrowing and anterior endplate sclerosis at L2-3. There is also some disc space narrowing at L3-4. Mild endplate spurring is seen. There is mid and lower lumbar facet hypertrophy. The SI joints are intact. No paraspinal soft tissue abnormalities are present. XR/XR pre/post mri xray IMPRESSION: SCOLIOSIS AND DEGENERATIVE CHANGES, SIMILAR TO THE PRIOR. MRI LUMBAR SPINE WITHOUT CONTRAST COMPARISON: 05/11/2020 Multiecho imaging in the axial and sagittal plane was performed without contrast. There is levoscoliotic curvature. There is minimal retrolisthesis of L2 on L3, L3 on L4 and L4 and L5. There are no acute compression fractures or marrow edema. There are degenerative endplate signal changes, predominantly at L2-3 anteriorly. The conus medullaris terminates at T12-L1. The lower imaged cord shows no significant findings. There is a small Tarlov cyst at S2 toward the right. No paraspinal soft tissue abnormalities are noted. At T12-L1, there is no disc disease or stenosis. At L1-2, there is slight disco-osteophytic bulging with mild thecal sac effacement. There is asymmetric facet disease on the left. There is no significant foraminal stenosis. At L2-3, there is prominent narrowing of the disc space. Disco-osteophytic bulging is noted. There is increased signal at the annulus that may be a tear. There is bilateral facet hypertrophy with joint effusion on the left. There is slight thickening of ligamentum flavum. There is continued moderate thecal sac effacement. There is mild inferior foraminal encroachment. At L3-4, there is narrowing of the disc space. Disco-osteophytic bulging is present. There is bilateral facet disease and mild thickening of ligamentum flavum. There is mild to moderate thecal sac effacement. There is mild to moderate right and moderate left foraminal impingement. At L4-5, there is slight loss of disc height. Annular disc bulging is noted, slightly asymmetric from the right parasagittal region extending laterally. There is increased signal at the annulus that could be tear. There is bilateral facet hypertrophy and thickening of ligamentum flavum, asymmetric on the left. Moderate central stenosis is again seen. There is moderate narrowing of the neural foramen bilaterally. At the lumbosacral junction, mild annular disc bulging is visualized. There is increased signal at the annulus that could be tear. There is bilateral facet disease, greater on the left. There is subtle thecal sac effacement. There is moderate neural foraminal narrowing, greater on the left. IMPRESSION: LEVOSCOLIOSIS. MULTILEVEL DISCOVERTEBRAL DEGENERATIVE CHANGES WITH ASSOCIATED CENTRAL AND FORAMINAL STENOSIS, DESCRIBED. SIMILAR FINDINGS WERE PRESENT AT THE TIME OF THE COMPARISON. Impression dictated by: Poppy Ashley M.D.08/28/2022 8:35 PM Dictation Location: [place] [address] Transcribed By: [facility] 08/28/222034 Dictated By: Poppy Ashely MD 08/28/222016 Signed By: 08/28/222034 [facility] MR lumbar spine wo con [facility] [employer] Other MR lumbar spine wo con [facility] [employer] Other MR lumbar spine wo con 1[address] [facility] [employer] Other MR lumbar spine wo con [place] [id number] [employer] Other MR lumbar spine wo con XRay Report [employer] Other MR lumbar spine wo con Signed [employer] Other MR lumbar spine wo con Patient: Edna Sultana MR#: [id number] [employer] Other MR lumbar spine wo con 2916 [employer] Other MR lumbar spine wo con : 1965 Acct:[id number] [employer] Other MR lumbar spine wo con Age/Sex: 56 / F ADM Date: 08/28/22 [employer] Other MR lumbar spine wo con Loc: MR Room: Type: [facility] [employer] Other MR lumbar spine wo con Attending Dr: Yannick Velázquez DO [employer] Other MR lumbar spine wo con Copies to: Yannick Velázquez, [employer] Other MR lumbar spine wo con Ordering Provider: Yannick Velázquez, [employer] Other MR lumbar spine wo con Date of Service: 08/28/22 [employer] Other MR lumbar spine wo con MR/MR lumbar spine wo con: M54.50 M48.0 M51.35 [employer] Other MR lumbar spine wo con ([id number]) XR/XR pre/post mri xray: PRE MRI OF THE LUMBAR [employer] Other MR lumbar spine wo con CLINICAL DATA: Chronic back pain with bilateral toe numbness. No injury. [employer] Other MR lumbar spine wo con PRE-MRI LUMBAR SPINE - 2 views [employer] Other MR lumbar spine wo con COMPARISON: 05/11/2020 [employer] Other MR lumbar spine wo con Standing AP and lateral views were obtained. 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 [employer] Other MR lumbar spine wo con There are no developing fractures. There is still slight retrolisthesis of L2 on L3, L3 on L4 and [employer] Other MR lumbar spine wo con L4 and L5. There is mild disc space narrowing and anterior endplate sclerosis at L2-3. There is [employer] Other MR lumbar spine wo con also some disc space narrowing at L3-4. Mild endplate spurring is seen. There is mid and lower [employer] Other MR lumbar spine wo con lumbar facet hypertrophy. The SI joints are intact. No paraspinal soft tissue abnormalities are [employer] Other MR lumbar spine wo con present. [employer] Other MR lumbar spine wo con XR/XR pre/post mri xray [employer] Other MR lumbar spine wo con IMPRESSION: [employer] Other MR lumbar spine wo con SCOLIOSIS AND DEGENERATIVE CHANGES, SIMILAR TO THE PRIOR. [employer] Other MR lumbar spine wo con MRI LUMBAR SPINE WITHOUT CONTRAST [employer] Other MR lumbar spine wo con Multiecho imaging in the axial and sagittal plane was performed without contrast. [employer] Other MR lumbar spine wo con There is levoscoliotic curvature. There is minimal retrolisthesis of L2 on L3, L3 on L4 and L4 and [employer] Other MR lumbar spine wo con L5. There are no acute compression fractures or marrow edema. There are degenerative endplate [employer] Other MR lumbar spine wo con signal changes, predominantly at L2-3 anteriorly. The conus medullaris terminates at T12-L1. The [employer] Other MR lumbar spine wo con lower imaged cord shows no significant findings. There is a small Tarlov cyst at S2 toward the [employer] Other MR lumbar spine wo con right. No paraspinal soft tissue abnormalities are noted. [employer] Other MR lumbar spine wo con At T12-L1, there is no disc disease or stenosis. [employer] Other MR lumbar spine wo con At L1-2, there is slight disco-osteophytic bulging with mild thecal sac effacement. There is [employer] Other MR lumbar spine wo con asymmetric facet disease on the left. There is no significant foraminal stenosis. [employer] Other MR lumbar spine wo con At L2-3, there is prominent narrowing of the disc space. Disco-osteophytic bulging is noted. There [employer] Other MR lumbar spine wo con is increased signal at the annulus that may be a tear. There is bilateral facet hypertrophy with [employer] Other MR lumbar spine wo con joint effusion on the left. There is slight thickening of ligamentum flavum. There is continued [employer] Other MR lumbar spine wo con moderate thecal sac effacement. There is mild inferior foraminal encroachment. [employer] Other MR lumbar spine wo con At L3-4, there is narrowing of the disc space. Disco-osteophytic bulging is present. There is [employer] Other MR lumbar spine wo con bilateral facet disease and mild thickening of ligamentum flavum. There is mild to moderate thecal [employer] Other MR lumbar spine wo con sac effacement. There is mild to moderate right and moderate left foraminal impingement. [employer] Other MR lumbar spine wo con At L4-5, there is slight loss of disc height. Annular disc bulging is noted, slightly asymmetric [employer] Other MR lumbar spine wo con from the right parasagittal region extending laterally. There is increased signal at the annulus [employer] Other MR lumbar spine wo con that could be tear. There is bilateral facet hypertrophy and thickening of ligamentum flavum, [employer] Other MR lumbar spine wo con asymmetric on the left. Moderate central stenosis is again seen. There is moderate narrowing of [employer] Other MR lumbar spine wo con the neural foramen bilaterally. [employer] Other MR lumbar spine wo con At the lumbosacral junction, mild annular disc bulging is visualized. There is increased signal at [employer] Other MR lumbar spine wo con the annulus that could be tear. There is bilateral facet disease, greater on the left. There is [employer] Other MR lumbar spine wo con subtle thecal sac effacement. There is moderate neural foraminal narrowing, greater on the left. [employer] Other MR lumbar spine wo con LEVOSCOLIOSIS. [employer] Other MR lumbar spine wo con MULTILEVEL DISCOVERTEBRAL DEGENERATIVE CHANGES WITH ASSOCIATED CENTRAL AND FORAMINAL STENOSIS, [employer] Other MR lumbar spine wo con DESCRIBED. SIMILAR FINDINGS WERE PRESENT AT THE TIME OF THE COMPARISON. [employer] Other MR lumbar spine wo con Impression dictated by: Poppy Ashley M.D.08/28/2022 8:35 PM [employer] Other MR lumbar spine wo con Dictation Location: [place] [address] [employer] Other MR lumbar spine wo con Transcribed By: RODERICK 08/28/222034 [employer] Other MR lumbar spine wo con Dictated By: Poppy Ashley MD 08/28/222016 [employer] Other MR lumbar spine wo con Signed By: [employer] Other MR lumbar spine wo con 08/28/222034 [employer] Other XR ABD FLAT_UPon 07-04-2022 XR ABD FLAT_UP EXAMINATION: XR ABD FLAT_UP HISTORY: Slow transit constipation COMPARISON: No relevant comparison available. FINDINGS: BOWEL GAS PATTERN: Non-obstructed. FREE AIR: None. CALCIFICATIONS: None significant. 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 IMPRESSION: Nonobstructive bowel gas pattern with normal amount of stool Electronically authenticated by: YANNICK REA Date: 2022-07-04 07:30 Normal [facility] CULTURE URINEon 07-03-2022 CULTURE URINE Culture Observations : NO GROWTH. Normal [facility] Comment on above: Performed By: #### U RCX #### [facility] [address] [place] [address] Dr. Rene De Jesus UA RANDOMon 07-03-2022 Bilirubin Ql (U) Negative Normal NEGATIVE [facility] Comment on above: Performed By: #### U A #### [facility] [address] [place] [address] Dr. Rene De Jesus Clarity (U) CLEAR Normal CLEAR [facility] Comment on above: Performed By: #### U A #### [facility] [address] [place] [address] Dr. Rene De Jesus Color (U) LT. YELLOW Normal YELLOW [facility] Comment on above: Performed By: #### U A #### [facility] [address] [place] [address] Dr. Rene De Jesus Glucose Ql (U) Negative Normal NEGATIVE [facility] Comment on above: Performed By: #### U A #### [facility] [address] [place] [address] Dr. Rene De Jesus Hemoglobin Ql (U) Negative Normal NEGATIVE [facility] Comment on above: Performed By: #### U A #### [facility] [address] [place] [address] Dr. Rene De Jesus Ketones Ql (U) Negative Normal NEGATIVE [facility] Comment on above: Performed By: #### U A #### [facility] [address] [place] [address] Dr. Rene De Jesus LEUKOCYTES Negative Normal NEGATIVE [facility] Comment on above: Performed By: #### U A #### [facility] [address] [place] [address] Dr. Rene De Jesus Nitrite Ql (U) Negative Normal NEGATIVE [facility] Comment on above: Performed By: #### U A #### [facility] [address] [place] [address] Dr. Rene De Jesus pH (U) 8.0 [pH] Normal 5-9 [facility] Comment on above: Performed By: #### U A #### [facility] [address] [place] [address] Dr. Rene De Jesus SPEC GRAVITY 1.010 Normal 1.005-<=1.025 [facility] Comment on above: Performed By: #### U A #### [facility] [address] [place] [address] Dr. Rene De Jesus UA PROTEIN Negative Normal NEGATIVE/ TRACE [facility] Comment on above: Performed By: #### U A #### [facility] [address] [place] [address] Dr. Rene De Jesus Urobilinogen Qn (U) 0.2 {Raman'U}/dL Normal 0.2 - 1. 0 [facility] Comment on above: Performed By: #### U A #### [facility] [address] [place] [address] Dr. Rene De Jesus CBC AUTO DIFFon 03-20-2022 BASO # 0.0 103/ul Normal 0.0-0.1 [facility] Comment on above: Performed By: #### C BC #### [facility] [address] [place] [address] Dr. Rene De Jesus Basophils/100 WBC (Bld) 0.8 % Normal 0.2-2.0 [facility] Comment on above: Performed By: #### C BC #### [facility] [address] [place] [address] Dr. Rene De Jesus EO # 0.1 103/ul Normal 0.0-0.7 [facility] Comment on above: Performed By: #### C BC #### [facility] [address] [place] [address] Dr. Rene De Jesus Eosinophils/100 WBC (Bld) 1.3 % Normal 0.9-7.0 [facility] Comment on above: Performed By: #### C BC #### [facility] [address] [place] [address] Dr. Rene De Jesus Erythrocyte distribution width (RBC) [Ratio] 13.1 % Normal 11.0-15.0 [facility] Comment on above: Performed By: #### C BC #### [facility] [address] [place] [address] Dr. Rene De Jesus Hematocrit (Bld) [Volume fraction] 40.9 % Normal 36.0-48.0 [facility] Comment on above: Performed By: #### C BC #### [facility] [address] [place] [address] Dr. Rene De Jesus Hemoglobin (Bld) [Mass/Vol] 13.2 g/dL Normal 12.0-16.0 [facility] Comment on above: Performed By: #### C BC #### [facility] [address] [place] [address] Dr. Rene De Jesus IG # 0.01 10e3/ul Normal 0.00-0.03 [facility] Comment on above: Performed By: #### C BC #### [facility] [address] [place] [address] Dr. Rene De Jesus IG % 0.2 % Normal 0.0-0.5 [facility] Comment on above: Performed By: #### C BC #### [facility] [address] [place] [address] Dr. Rene De Jesus LYMPH # 2.4 103/ul Normal 1.2-3.8 [facility] Comment on above: Performed By: #### C BC #### [facility] [address] [place] [address] Dr. Rene De Jesus Lymphocytes/100 WBC (Bld) 44.5 % Normal 20.5-60.0 [facility] Comment on above: Performed By: #### C BC #### [facility] [address] [place] [address] Dr. Rene De Jesus MANUAL DIFF REQ NO Normal [facility] Comment on above: Performed By: #### C BC #### [facility] [address] [place] [address] Dr. Rene De Jesus MCH (RBC) [Entitic mass] 29.2 pg Normal 26.7-34.0 [facility] Comment on above: Performed By: #### C BC #### [facility] [address] [place] [address] Dr. Rene De Jesus MCHC (RBC) [Mass/Vol] 32.3 g/dL Normal 29.9-35.2 [facility] Comment on above: Performed By: #### C BC #### [facility] [address] [place] [address] Dr. Rene De Jesus MCV (RBC) [Entitic vol] 90.5 fL Normal 81.0-99.0 [facility] Comment on above: Performed By: #### C BC #### [facility] [address] [place] [address] Dr. Rene De Jesus MONO # 0.6 103/ul Normal 0.3-0.8 [facility] Comment on above: Performed By: #### C BC #### [facility] [address] [place] [address] Dr. Rene De Jesus Monocytes/100 WBC (Bld) 12.1 % Critically high 1.7-12.0 [facility] Comment on above: Performed By: #### C BC #### [facility] [address] [place] [address] Dr. Rene De Jesus NEUT # 2.2 103/ul Normal 1.4-6.5 [facility] Comment on above: Performed By: #### C BC #### [facility] [address] [place] [address] Dr. Rene De Jesus Neutrophils/100 WBC (Bld) 41.1 % Critically low 43.0-75.0 [facility] Comment on above: Performed By: #### C BC #### [facility] [address] [place] [address] Dr. Rene De Jesus Platelet mean volume (Bld) [Entitic vol] 10.5 fL Normal 9.5-13.5 [facility] Comment on above: Performed By: #### C BC #### [facility] Laboratory [address] [place] [address] Dr. Rene DeJ esus PLT 263 103/ul Normal 150-450 [facility] Comment on above: Performed By: #### C BC #### [facility] Laboratory [address] [place] [address] Dr. Rene De Jesus RBC 4.52 106/ul Normal 4.20-5.40 [facility] Comment on above: Performed By: #### C BC #### [facility] Laboratory [address] [place] [address] Dr. Rene De Jesus WBC 5.3 103/ul Normal 4.0-11.0 [facility] Comment on above: Performed By: #### C BC #### [facility] Laboratory [address] [place] [address] Dr. Rene De Jesus PROF 14(COMP METB)on 022 Albumin [Mass/Vol] 3.9 g/dL Normal 3.4-5.0 [facility] Comment on above: Performed By: #### T ZEN, CMP #### [facility] Laboratory [address] [place] [address] Dr. Rene De Jesus Albumin/Globulin [Mass ratio] 1.2 {ratio} Normal [facility] Comment on above: Performed By: #### T ZEN, CMP #### [facility] Laboratory [address] [place] [address] Dr. Rene De Jesus ALP [Catalytic activity/Vol] 71 U/L Normal 46-116 [facility] Comment on above: Performed By: #### T ZEN, CMP #### [facility] Laboratory [address] [place] [address] Dr. Rene De Jesus ALT [Catalytic activity/Vol] 21 U/L Normal 14-59 [facility] Comment on above: Performed By: #### T ZEN, CMP #### [facility] Laboratory [address] [place] [address] Dr. Rene De Jesus Anion gap [Moles/Vol] 11.3 mmol/L Normal [facility] Comment on above: Performed By: #### T ZEN, CMP #### [facility] Laboratory [address] [place] [address] Dr. Rene De Jesus AST [Catalytic activity/Vol] 15 U/L Normal 15-37 [facility] Comment on above: Performed By: #### T SH, CMP #### [facility] Laboratory [address] [place] [address] Dr. Rene De Jesus Bilirubin [Mass/Vol] 0.3 mg/dL Normal 0.2-1.0 [facility] Comment on above: Performed By: #### T SH, CMP #### [facility] Laboratory [address] [place] [address] Dr. Rene De Jesus Calcium [Mass/Vol] 8.9 mg/dL Normal 8.5-10.1 [facility] Comment on above: Performed By: #### T SH, CMP #### [facility] Laboratory [address] [place] [address] Dr. Rene De Jesus Chloride [Moles/Vol] 102 mmol/L Normal 98-107 [facility] Comment on above: Performed By: #### T SH, CMP #### [facility] Laboratory [address] [place] [address] Dr. Rene De Jesus CO2 [Moles/Vol] 30.7 mmol/L Normal 21.0-32.0 [facility] Comment on above: Performed By: #### T SH, CMP #### [facility] Laboratory [address] [place] [address] Dr. Rene De Jesus Creatinine [Mass/Vol] 0.69 mg/dL Normal 0.55-1.02 [facility] Comment on above: Performed By: #### T SH, CMP #### [facility] Laboratory [address] [place] [address] Dr. Rene De Jesus EGFR-AF SENEGALESE >60 Normal >=60 [facility] Comment on above: Performed By: #### T SH, CMP #### [facility] Laboratory [address] [place] [address] Dr. Rene De Jesus EGFR-NON AF SENEGALESE >60 Normal >=60 [facility] Comment on above: Performed By: #### T SH, CMP #### [facility] Laboratory [address] [place] [address] Dr. Rene De Jesus Globulin (S) [Mass/Vol] 3.3 g/dL Normal [facility] Comment on above: Performed By: #### T SH, CMP #### [facility] Laboratory [address] [place] [address] Dr. Rene De Jesus Glucose [Mass/Vol] 96 mg/dL Normal 74-106 [facility] Comment on above: Performed By: #### T SH, CMP #### [facility] Laboratory [address] [place] [address] Dr. Rene eD Jesus Potassium [Moles/Vol] 4.0 mmol/L Normal 3.5-5.1 [facility] Comment on above: Performed By: #### T SH, CMP #### [facility] Laboratory [address] [place] [address] Dr. Rene De Jesus Protein [Mass/Vol] 7.2 g/dL Normal 6.4-8.2 [facility] Comment on above: Performed By: #### T SH, CMP #### [facility] Laboratory [address] [place] [address] Dr. Rene De Jesus Sodium [Moles/Vol] 140 mmol/L Normal 136-145 [facility] Comment on above: Performed By: #### T SH, CMP #### [facility] Laboratory [address] [place] [address] Dr. Rene De Jesus Urea nitrogen [Mass/Vol] 18.0 mg/dL Normal 7.0-18.0 [facility] Comment on above: Performed By: #### T SH, CMP #### [facility] Laboratory [address] [place] [address] Dr. Rene De Jesus Urea nitrogen/Creatinine [Mass ratio] 26.1 mg/mg Normal [facility] Comment on above: Performed By: #### T SH, CMP #### [facility] Laboratory [address] [place] [address] Dr. Rene De Jesus TSHon 03-20-2022 TSH 2.033 uIU/mL Normal 0.358-3.740 [facility] Comment on above: Performed By: #### T SH, CMP #### [facility] Laboratory [address] [place] [address] Dr. Rene De Jesus XR foot RT min 3V*on 022 XR foot RT min 3V* [facility] [employer] Other XR foot RT min 3V* [facility] [employer] Other XR foot RT min 3V* [facility] [employer] Other XR foot RT min 3V* [place] [id number] [employer] Other XR foot RT min 3V* XRay Report [employer] Other XR foot RT min 3V* Signed [employer] Other XR foot RT min 3V* Patient: Edna Sultana MR#: [id number] [employer] Other XR foot RT min 3V* 2916 [employer] Other XR foot RT min 3V* : 1965 Acct:[id number] [employer] Other XR foot RT min 3V* Age/Sex: 56 / F ADM Date: 01/28/22 [employer] Other XR foot RT min 3V* [facility] Type: [facility] [employer] Other XR foot RT min 3V* Attending Dr: Shara Layton SITE AUDITOR-C [employer] Other XR foot RT min 3V* [facility] [employer] Other XR foot RT min 3V* Ordering Provider: SHARA LAYTON [employer] Other XR foot RT min 3V* Date of Service: 01/28/22 [employer] Other XR foot RT min 3V* XR/XR foot RT min 3V*: Injury of right foot, initial encounter [employer] Other XR foot RT min 3V* 3 viewsRIGHT foot plain film [employer] Other XR foot RT min 3V* COMPARISON:None N [employer] Other XR foot RT min 3V* HISTORY:RIGHT foot injury. [employer] Other XR foot RT min 3V* No acute fracture, dislocation or focal soft tissue abnormality seen. Chronic deformity of the 5th [employer] Other XR foot RT min 3V* metatarsal identified. [employer] Other XR foot RT min 3V* XR/XR foot RT min 3V* [employer] Other XR foot RT min 3V* IMPRESSION:No acute findings [employer] Other XR foot RT min 3V* Impression dictated by: Lukas Nicole M.D.01/28/2022 3:27 PM [employer] Other XR foot RT min 3V* Dictation Location: [place] [address] [employer] Other XR foot RT min 3V* Transcribed By: PWS 01/28/22 [facility] [employer] Other XR foot RT min 3V* Dictated By: Lukas Nicole DO 01/28/22 [facility] [employer] Other XR foot RT min 3V* Signed By: [employer] Other XR foot RT min 3V* 01/28/[address] [place] [address] [employer] [address] ABD/PELVIS WO CONon 08-01 CT ABD/PELVIS WO CON EXAM: CT ABDOMEN/PELVIS WITHOUT CONTRAST 08/01/2021 2:31 AM EST CLINICAL STATEMENT: Left flank pain. COMPARISON: No prior studies are available at the time of dictation. TECHNIQUE: Helically acquired images were obtained of the abdomen and pelvis without IV contrast. No oral contrast was administered. CT dose reduction technique was used, including Automated Exposure Control. . 2-D reconstructed images are provided. FINDINGS: Gallbladder is unremarkable. Bilateral nonobstructive renal calculi measuring up to 4 mm on the right and 2 mm on the left. There is no hydronephrosis or hydroureter. The upper abdominal solid organs are unremarkable. There is no bowel obstruction or free air. There is no ascites. There is no evidence of aortic aneurysm. There is no retroperitoneal adenopathy. There is no appendicitis or diverticulitis. There are no pelvic masses or loculated fluid collections. Scattered pelvic phleboliths. The uterus and bladder are unremarkable. The lung bases are clear. Multilevel degenerative changes lumbosacral spine with scoliosis. There are no destructive bone lesions identified. IMPRESSION: Bilateral nonobstructive renal calculi measuring up to 4 mm on the right and 2 mm on the left. No hydronephrosis or hydroureter. FOLLOW-UP: Follow-up as clinically indicated. Electronically authenticated by: MARGO ELLIOTT Date: 2021-08-01 02:33 Normal [facility] ER URINE PROFILEon 2 Bilirubin Ql (U) Negative Normal NEGATIVE [facility] Comment on above: Performed By: #### E RUR #### [facility] Laboratory [address] [place] [address] Dr. Rene De Jesus Clarity (U) CLEAR Normal CLEAR [facility] Comment on above: Performed By: #### E RUR #### [facility] Laboratory [address] [place] [address] Dr. Rene De Jesus Color (U) YELLOW Normal YELLOW [facility] Comment on above: Performed By: #### E RUR #### [facility] [address] [place] [address] Dr. Rene SOLOMON A micrscopic examination will be performed if indicated. Normal [facility] Comment on above: Performed By: #### E RUR #### [facility] Laboratory [address] [place] [address] Dr. Rene De Jesus Glucose Ql (U) Negative Normal NEGATIVE [facility] Comment on above: Performed By: #### E RUR #### [facility] Laboratory [address] [place] [address] Dr. Rene De Jesus Hemoglobin Ql (U) Negative Normal NEGATIVE [facility] Comment on above: Performed By: #### E RUR #### [facility] Laboratory [address] [place] [address] Dr. Rene D eJesus Ketones Ql (U) Negative Normal NEGATIVE [facility] Comment on above: Performed By: #### E RUR #### [facility] [address] [place] [address] Dr. Rene De Jesus LEUKOCYTES Negative Normal NEGATIVE [facility] Comment on above: Performed By: #### E RUR #### [facility] [address] [place] [address] Dr. Rene De Jesus Nitrite Ql (U) Negative Normal NEGATIVE [facility] Comment on above: Performed By: #### E RUR #### [facility] [address] [place] [address] Dr. Rene De Jesus pH (U) 7.5 [pH] Normal 5-9 [facility] Comment on above: Performed By: #### E RUR #### [facility] Laboratory [address] [place] [address] Dr. Rene De Jesus SPEC GRAVITY 1.015 Normal 1.005-<=1.025 [facility] Comment on above: Performed By: #### E RUR #### [facility] Laboratory [address] [place] [address] Dr. Rene De Jesus UA PROTEIN Negative Normal NEGATIVE/ TRACE [facility] Comment on above: Performed By: #### E RUR #### [facility] Laboratory [address] [place] [address] Dr. Rene De Jesus UR MICRO IND NOT INDICATED Normal [facility] Comment on above: Performed By: #### E RUR #### [facility] Laboratory [address] [place] [address] Dr. Rene De Jesus Urobilinogen Qn (U) 0.2 {Raman'U}/dL Normal 0.2 - 1. 0 [facility] Comment on above: Performed By: #### E RUR #### [facility] Laboratory [address] [address] [address] Rene Morris 09-06-2020 [facility] Office Visit (UROTWI ) EDNA SULTANA ([id number]) 1965 F Date Time Provider Department 09/06/20 2:00 PM DAVID QUIÑONEZ UROTTOREY During your visit today, we recorded the following information about you: Weight Height 70.8 kg 1.803 m Stephanie Perrin MA 09/06/2020 1:43 PM Signed PVR 0 David Quiñonez MD 09/06/2020 2:30 PM Signed [facility]VIC MEDICINE AND RECONSTRUCTIVE SURGERY PATIENT HISTORY AND PHYSICAL EXAM PATIENT INFO: Edna Sultana is a 54 year old female. REFERRING M.D.: Yannick Velázquez, DO [address] [place] [id number] Consultation requested by Gisel for an opinion regarding Ms Sultana, and my final recommendations will be communicated back to the requesting provider by way of shared Medical record, fax or letter via US mail. HISTORY CHIEF COMPLAINT: uti/urgency HPI : Edna Sultana is a 54 year old female had uti a year ago - freq/urgency. took abxs but urgency continued. had cysto/dilation. no change. tried a few meds. found to have strep infection and much improved after 21 days abx. still gets twinges when goes to the bathroom. has never felt the same since uti year ago. ? if may have Lyme disease. voiding - q 2-3/hrs, nocturia 1-3. no dysuria sense of vag bulge. no blood in urine QUESTIONNAIRE: Questionnaire: [facility] Female Pelvic Medicine Base Question Answer What is the main problem that you are seeing us for today? UTI in September 2019 - problems ever since. Suffered with UTI for over 6 months before doing a urine DNA test and discovering it was a strep infection. Urgency and what feels like urethral irritation comes and goes - much worse when bowels not moving. Bladder prolapsing. Questioning if anything else is prolapsing? Possibly have Lyme disease and wondering if that can cause these symptoms. How long has this been going on? September 2019 Do you have any leakage with coughing, sneezing, laughing? Yes Do you have the sudden, uncontrollable urge to urinate? No Do you have any leakage when you get the urge to urinate? No Do you wear pads for urinary protection? No How many times do you urinate during the day? 8? How many times do you get up at night to urinate? 2-3 Do you feel like you have to push to get urine out? No When you leave the bathroom, do you feel like your bladder is empty? Yes How many urinary tract/bladder infections (UTIs) have you had in the last 12 months? 4 Have you done pelvic floor or kegel exercises in the past? Yes Please select if you have taken any of the medicatons listed below for overractive bladder. tolterodine / Detrol Have you had a Sacral Neuromodulation (also called Interstim) device placed? No Have you ever undergone PTNS (Posterior Tibila Nerve Stimulation)? No How many cups of total fluid do you drink per day? 14-16 How many cups of caffeinated beverages do you drink per day? 2 Are you sexually active? Yes Does it hurt when you have sex? Yes Have you had any pregnancies? Yes If yes, how many? How many Vaginal births? How many C-sections? 1 vaginal; 1 Have you gone through menopause? Yes Have you had a hysterectomy? No Have you had any post-menopausal bleeding? No Have you ever had a gynecologic or urologic surgery? Yes If yes, what? release of adhesions Do you have a sense of a vaginal bulge or something hanging from your vagina? Yes Have you ever had blood in your urine? Yes Have you ever had bladder / kidney stones? No Do you have any bowel problems? Yes If yes, please select all that apply below. Constipation Do you have any new weakness, balance or coordination problems? No Do you have a history of any diagnosed back problems? Yes If yes, please describe. Spinal Stenosis; Disc Herniations at L4-5 and L5-S1. Already saw neurosurgeon to determine if current issues are related to this and he says no. Do you have a history of any diagnosed neurological problems? Yes If yes, please describe. Not really a firm diagonsis. Developed twitches all over body - almost like a quick jerk - which started summer 2018. A natural medicine person I see used electrodermal screening and identified Lyme and several co-infections. Tried a 21 day course of doxycycline and twitching stopped - but then after being off for 2 weeks it came back but not nearly as frequent or intense. ANGELA and Western Blot both negative but still suspect Lyme. Have you recently had any significant weight loss and /or fever? No Have you recently had any blurred vision? No Do you have Sjogren?s syndrome? No Do you have any new skin lesions and/or rashes? Yes Do you have a cough and/or shortness of breath? No Do you have any chest pain today? No Have you ever had a heart attack or any heart problems? No Do you have high blood pressure, also called hypertension? No Are you taking a blood thinner? No Do you have any thyroid problems? No Do you have diabetes? No Do you have any numbness, tingling, and/or tremors? No Do you have any joint pain and/or swelling? No Do you have any back and/or muscle pain? Yes Do you bleed and/or bruise easily? Yes Do you have a history of blood transfusion (getting another person?s blood)? Yes Do you have a history of depression, anxiety and/or mental illness? Yes Urinary Distress Inventory (MAURILIO 6) Do you experience the following questions? If so how much are you bothered by it. Frequent urination? Moderately Urine leakage related to the feeling of urgency? A littel bit Urine leakage related to physical activity, coughing/sneezing? A little bit Small amounts of urine leakage (that is drops)? A little bit Difficulty emptying your bladder? Not at all Pain or discomfort in the lower abdominal or genital area? A little bit Questionnaire: Myc Promis 10 Adult Short Form V1.0 Global Health Question Answer In the past 7 days In general, would you say your health is: Very good In general, would you say your quality of life is: Very good In general, how would you rate your physical health? Very good In general, how would you rate your mental health, including your mood and your ability to think? Very good In general, how would you rate your satisfaction with your social activities and relationships? Very good In general, please rate how well you carry out your usual social activities and roles. (This includes activities at home, at work and in your community, and responsibilities as a parent, child, spouse, employee, friend, etc.) Excellent To what extent are you able to carry out your everyday physical activities such as walking, climbing stairs, carrying groceries, or moving a chair? Completely In the past 7 days How often have you been bothered by emotional problems such as feeling anxious, depressed or irritable? Often How would you rate your fatigue on average? Mild How would you rate your pain on average? 4 PROMIS Adult Short Form-Global Health Score (Physical) 50.8 PROMIS Adult Short Form-Global Health Score (Mental) 48.3 HISTORIES: PAST MEDICAL HISTORY Diagnosis Date - Vitamin B12 deficiency PAST SURGICAL HISTORY Procedure Laterality Date - BUNIONECTOMY, LAPIDUS-TYPE - SECTION HX - F PER LYSIS ADHES - TONSILLECTOMY AND ADENOIDECTOMY HX No family history on file. Social History Tobacco Use - Smoking status: Never Smoker - Smokeless tobacco: Never Used Substance Use Topics - Alcohol use: Yes Alcohol/week: 1.0 standard drinks Types: 1 Glasses of Wine (5oz) per week - Drug use: Never The patient's family history is not related to the condition for which the patient is being seen MEDICATIONS: Current Outpatient Medications Medication Sig - sertraline (ZOLOFT) 25 mg tablet Take 25 mg by mouth. - cyanocobalamin 1,000 mcg/mL No current facility-administered medications for this visit. ALLERGIES: Adhesive Tape-Silicones PHYSICAL EXAM: VITAL SIGNS: Ht 180.3 cm (5' 11 ) Wt 70.8 kg (156 lb) BMI 21.76 kg/m? GENERAL: Well appearing, alert, in no acute distress, well-hydrated, well nourished. RESP: NL effort, no retractions or purse-lip breathing. CV: No extremity swelling, varices, edema, pallor, or erythema ABDOMEN: Soft, nontender, nondistended, no masses. HERNIAS: None SKIN/LYMPH: No rash, lesions NEURO/PSYCH: No signs of depression, anxiety, or agitation EXTREMITIES: Extremities normal. No deformities, edema, clubbing or skin discoloration. GENITOURINARY: External genitalia: nl. Hair distribution, no lesions Urethra without mass, tenderness, scarring. Bladder non-palpable without masses/tenderness. Vaginal appearance normal without discharge. Estrogen normal limit No adnexal mass, tenderness, nodules No tenderness to palpation Anus and perineum grossly nl. Uterus AND Cervix: Did not see Cystocele:Stage II Rectocele:none POP-Q: Ba 0 CYSTOMETRICS: no PVR: 0 mL via bladder US UA: Normal IMPRESSION AND PLAN: hx of uti with occasional twinges for last year cystocele all else fine recommended OTC txs for twinges/discomfort - uricalm, etc fu prn Electronically signed STAFF NOTE: I have personally modified the HPI AND ROS, performed a PE AND a face to face diagnostic evaluation on this patient AND discussed the above plan. Signed: David Quiñonez MD [facility] Electronically signed Medical Decision Making Referring Provider: YANNICK VELÁZQUEZ [[id number]] Allergies As of Date: 09/06/2020 Noted Allergy Reaction ADHESIVE TAPE-SILICONES 09/06/2020 2 - Rash 4 - Hives Date Reviewed: 09/06/2020 Reviewed by: Stephanie Perrin MA - Fully Assessed Reason for Visit: Consult [173] Cmt: bladder prolapse, twinge, uncomfortable, pressure with constipation Visit Diagnoses:Dysuria [R30.0] Cystocele with prolapse [N81.4] Nocturia [R35.1] Order(s):UA DIP, URINE (POC) [[id number]] Order #: [id number] #:[id number] Prescriptions as of 09/06/2020 Sig: SERTRALINE 25 MG TABLET Take 25 mg by mouth. CYANOCOBALAMIN (VIT B-12) 1,0* Problem List As Of Date 09/06/2020 Noted Resolved Dysuria [R30.0] 09/06/2020 Cystocele with prolapse [N81.4] 09/06/2020 Nocturia [R35.1] 09/06/2020 Visit Notes: >> Stephanie Perrin MA [facility] Sep 06, 2020 1:40 PM Status: Signed PVR 0 Letter Text Encounter Status:Closed by DAVID QUIÑONEZ MD on 09/06/20 Normal [facility] Otheron 09-06-2020 BILIRUBIN UA (POCT) Negative Negative [facility] CLARITY UA (POCT) Clear [facility] COLOR UA (POCT) Yellow [facility] GLUCOSE UA (POCT) Negative Negative mg/dL [facility] HEMOGLOBIN/BLOOD UA (POCT) Negative Negative [facility] KETONE UA (POCT) Negative Negative mg/dL [facility] LEUKOCYTES UA (POCT) Negative Negative [facility] NITRITE UA (POCT) Negative Negative [facility] PH UA (POCT) 8.5 Abnormal 4.5 - 8.0 [facility] inic Protein Ql (U) Negative Negative mg/dL [facility] SPECIFIC GRAVITY UA (POCT) 1.020 1.005 - 1.030 [facility] UROBILINOGEN UA (POCT) 0.2 E.U./dL Normal E.U./dL [facility] PROGRESSon 09-06-2020 PROGRESS HNO ID: [id number] Author: David Quiñonez Service: ? Author Type: Physician Type: Progress Notes Filed: 09/06/2020 2:30 PM Note Text: [facility] PELVIC MEDICINE AND RECONSTRUCTIVE SURGERY PATIENT HISTORY AND PHYSICAL EXAM PATIENT INFO: Edna Sultana is a 54 year old female. REFERRING M.Danica.: Yannick Velázquez, DO [address] [place] [id number] Consultation requested by Gisel for an opinion regarding Ms Sultana, and my final recommendations will be communicated back to the requesting provider by way of shared Medical record, fax or letter via US mail. HISTORY CHIEF COMPLAINT: uti/urgency HPI : Edna Sultana is a 54 year old female had uti a year ago - freq/urgency. took abxs but urgency continued. had cysto/dilation. no change. tried a few meds. found to have strep infection and much improved after 21 days abx. still gets twinges when goes to the bathroom. has never felt the same since uti year ago. ? if may have Lyme disease. voiding - q 2-3/hrs, nocturia 1-3. no dysuria sense of vag bulge. no blood in urine QUESTIONNAIRE: Questionnaire: [facility] [place] [facility] Female [facility] Question Answer What is the main problem that you are seeing us for today? UTI in September 2019 - problems ever since. Suffered with UTI for over 6 months before doing a urine DNA test and discovering it was a strep infection. Urgency and what feels like urethral irritation comes and goes - much worse when bowels not moving. Bladder prolapsing. Questioning if anything else is prolapsing? Possibly have Lyme disease and wondering if that can cause these symptoms. How long has this been going on? September 2019 Do you have any leakage with coughing, sneezing, laughing? Yes Do you have the sudden, uncontrollable urge to urinate? No Do you have any leakage when you get the urge to urinate? No Do you wear pads for urinary protection? No How many times do you urinate during the day? 8? How many times do you get up at night to urinate? 2-3 Do you feel like you have to push to get urine out? No When you leave the bathroom, do you feel like your bladder is empty? Yes How many urinary tract/bladder infections (UTIs) have you had in the last 12 months? 4 Have you done pelvic floor or kegel exercises in the past? Yes Please select if you have taken any of the medicatons listed below for overractive bladder. tolterodine / Detrol Have you had a Sacral Neuromodulation (also called Interstim) device placed? No Have you ever undergone PTNS (Posterior Tibila Nerve Stimulation)? No How many cups of total fluid do you drink per day? 14-16 How many cups of caffeinated beverages do you drink per day? 2 Are you sexually active? Yes Does it hurt when you have sex? Yes Have you had any pregnancies? Yes If yes, how many? How many Vaginal births? How many C-sections? 1 vaginal; 1 Have you gone through menopause? Yes Have you had a hysterectomy? No Have you had any post-menopausal bleeding? No Have you ever had a gynecologic or urologic surgery? Yes If yes, what? release of adhesions Do you have a sense of a vaginal bulge or something hanging from your vagina? Yes Have you ever had blood in your urine? Yes Have you ever had bladder / kidney stones? No Do you have any bowel problems? Yes If yes, please select all that apply below. Constipation Do you have any new weakness, balance or coordination problems? No Do you have a history of any diagnosed back problems? Yes If yes, please describe. Spinal Stenosis; Disc Herniations at L4-5 and L5-S1. Already saw neurosurgeon to determine if current issues are related to this and he says no. Do you have a history of any diagnosed neurological problems? Yes If yes, please describe. Not really a firm diagonsis. Developed twitches all over body - almost like a quick jerk - which started summer 2018. A natural medicine person I see used electrodermal screening and identified Lyme and several co-infections. Tried a 21 day course of doxycycline and twitching stopped - but then after being off for 2 weeks it came back but not nearly as frequent or intense. ANGELA and Western Blot both negative but still suspect Lyme. Have you recently had any significant weight loss and /or fever? No Have you recently had any blurred vision? No Do you have Sjogren?s syndrome? No Do you have any new skin lesions and/or rashes? Yes Do you have a cough and/or shortness of breath? No Do you have any chest pain today? No Have you ever had a heart attack or any heart problems? No Do you have high blood pressure, also called hypertension? No Are you taking a blood thinner? No Do you have any thyroid problems? No Do you have diabetes? No Do you have any numbness, tingling, and/or tremors? No Do you have any joint pain and/or swelling? No Do you have any back and/or muscle pain? Yes Do you bleed and/or bruise easily? Yes Do you have a history of blood transfusion (getting another person?s blood)? Yes Do you have a history of depression, anxiety and/or mental illness? Yes Urinary Distress Inventory (MAURILIO 6) Do you experience the following questions? If so how much are you bothered by it. Frequent urination? Moderately Urine leakage related to the feeling of urgency? A littel bit Urine leakage related to physical activity, coughing/sneezing? A little bit Small amounts of urine leakage (that is drops)? A little bit Difficulty emptying your bladder? Not at all Pain or discomfort in the lower abdominal or genital area? A little bit Questionnaire: Myc Promis 10 Adult Short Form V1.0 Global Health Question Answer In the past 7 days In general, would you say your health is: Very good In general, would you say your quality of life is: Very good In general, how would you rate your physical health? Very good In general, how would you rate your mental health, including your mood and your ability to think? Very good In general, how would you rate your satisfaction with your social activities and relationships? Very good In general, please rate how well you carry out your usual social activities and roles. (This includes activities at home, at work and in your community, and responsibilities as a parent, child, spouse, employee, friend, etc.) Excellent To what extent are you able to carry out your everyday physical activities such as walking, climbing stairs, carrying groceries, or moving a chair? Completely In the past 7 days How often have you been bothered by emotional problems such as feeling anxious, depressed or irritable? Often How would you rate your fatigue on average? Mild How would you rate your pain on average? 4 PROMIS Adult Short Form-Global Health Score (Physical) 50.8 PROMIS Adult Short Form-Global Health Score (Mental) 48.3 HISTORIES: PAST MEDICAL HISTORY Diagnosis Date - Vitamin B12 deficiency PAST SURGICAL HISTORY Procedure Laterality Date - BUNIONECTOMY, LAPIDUS-TYPE - SECTION HX - F PER LYSIS ADHES - TONSILLECTOMY AND ADENOIDECTOMY HX No family history on file. Social History Tobacco Use - Smoking status: Never Smoker - Smokeless tobacco: Never Used Substance Use Topics - Alcohol use: Yes Alcohol/week: 1.0 standard drinks Types: 1 Glasses of Wine (5oz) per week - Drug use: Never The patient's family history is not related to the condition for which the patient is being seen MEDICATIONS: Current Outpatient Medications Medication Sig - sertraline (ZOLOFT) 25 mg tablet Take 25 mg by mouth. - cyanocobalamin 1,000 mcg/mL No current facility-administered medications for this visit. ALLERGIES: Adhesive Tape-Silicones PHYSICAL EXAM: VITAL SIGNS: Ht 180.3 cm (5' 11 ) Wt 70.8 kg (156 lb) BMI 21.76 kg/m? GENERAL: Well appearing, alert, in no acute distress, well-hydrated, well nourished. RESP: NL effort, no retractions or purse-lip breathing. CV: No extremity swelling, varices, edema, pallor, or erythema ABDOMEN: Soft, nontender, nondistended, no masses. HERNIAS: None SKIN/LYMPH: No rash, lesions NEURO/PSYCH: No signs of depression, anxiety, or agitation EXTREMITIES: Extremities normal. No deformities, edema, clubbing or skin discoloration. GENITOURINARY: External genitalia: nl. Hair distribution, no lesions Urethra without mass, tenderness, scarring. Bladder non-palpable without masses/tenderness. Vaginal appearance normal without discharge. Estrogen normal limit No adnexal mass, tenderness, nodules No tenderness to palpation Anus and perineum grossly nl. Uterus AND Cervix: Did not see Cystocele:Stage II Rectocele:none POP-Q: Ba 0 CYSTOMETRICS: no PVR: 0 mL via bladder US UA: Normal IMPRESSION AND PLAN: hx of uti with occasional twinges for last year cystocele all else fine recommended OTC txs for twinges/discomfort - uricalm, etc fu prn Electronically signed STAFF NOTE: I have personally modified the HPI AND ROS, performed a PE AND a face to face diagnostic evaluation on this patient AND discussed the above plan. Signed: David Quiñonez MD [facility] Electronically signed Medical Decision Making Normal [facility] Ambulatory Clinical Summaryo n 05-30-2020 Ambulatory Clinical Summary {[id number] Normal [facility] Patient Educationon 05-30-20 20 Patient Education Family Medicine Urinary Frequency The number of times a normal person urinates depends upon how much liquid they take in and how much liquid they are losing. If the temperature is hot and there is high humidity then the person will sweat more and usually breathe a little more frequently. These factors decrease the amount of frequency of urination that would be considered normal. The amount you drink is easily determined, but the amount of fluid lost is sometimes more difficult to calculate. Fluid is lost in two ways: ? Sensible fluid loss is usually measured by the amount of urine that you get rid of. Losses of fluid can also occur with diarrhea. ? Insensible fluid loss is more difficult to measure. It is caused by evaporation. Insensible loss of fluid occurs through breathing and sweating. It usually ranges from a little less than a quart to a little more than a quart of fluid a day. In normal temperatures and activity levels the average person may urinate 4 to 7 times in a 24-hour period. Needing to urinate more often than that could indicate a problem. If one urinates 4 to 7 times in 24 hours and has large volumes each time, that could indicate a different problem from one who urinates 4 to 7 times a day and has small volumes. The time of urinating is also an important. Most urinating should be done during the waking hours. Getting up at night to urinate frequently can indicate some problems. CAUSES The bladder is the organ in your lower abdomen that holds urine. Like a balloon, it swells some as it fills up. Your nerves sense this and tell you it is time to head for the bathroom. There are a number of reasons that you might feel the need to urinate more often than usual. They include: ? Urinary tract infection. This is usually associated with other signs such as burning when you urinate. ? In men, problems with the prostate (a walnut-size gland that is located near the tube that carries urine out of your body). There are two reasons why the prostate can cause an increased frequency of urination: ? An enlarged prostate that does not let the bladder empty well. If the bladder only half empties when you urinate then it only has half the capacity to fill before you have to urinate again. ? The nerves in the bladder become more hypersensitive with an increased size of the prostate even if the bladder empties completely. ? . ? Obesity. Excess weight is more likely to cause a problem for women more than for men. ? Bladder stones or other bladder problems. ? Caffeine. ? Alcohol. ? Medications. For example, drugs that help the body get rid of extra fluid (diuretics ) increase urine production. Some other medicines must be taken with lots of fluids. ? Muscle or nerve weakness. This might be the result of a spinal cord injury, a stroke, multiple sclerosis or Parkinson's disease. ? Long-standing diabetes can decrease the sensation of the bladder. This loss of sensation makes it harder to sense the bladder needs to be emptied. Over a period of years the bladder is stretched out by constant overfilling. This weakens the bladder muscles so that the bladder does not empty well and has less capacity to fill with new urine. ? Interstitial cystitis (also called painful bladder syndrome). This condition develops because the tissues that line the insider of the bladder are inflamed (inflammation is the body's way of reacting to injury or infection). It causes pain and frequent urination. It occurs in women more often than in men. DIAGNOSIS ? To decide what might be causing your urinary frequency, your healthcare provider will probably: ? Ask about symptoms you have noticed. ? Ask about your overall health. This will include questions about any medications you are taking. ? Do a physical examination. ? Order some tests. These might include: ? A blood test to check for diabetes or other health issues that could be contributing to the problem. ? Urine testing. This could measure the flow of urine and the pressure on the bladder. ? A test of your neurological system (the brain, spinal cord and nerves). This is the system that senses the need to urinate. ? A bladder test to check whether it is emptying completely when you urinate. ? Cytoscopy. This test uses a thin tube with a tiny camera on it. It offers a look inside your urethra and bladder to see if there are problems. ? Imaging tests. You might be given a contrast dye and then asked to urinate. X-rays are taken to see how your bladder is working. TREATMENT It is important for you to be evaluated to determine if the amount or frequency that you have is unusual or abnormal. If it is found to be abnormal the cause should be determined and this can usually be found out easily. Depending upon the cause treatment could include medication, stimulation of the nerves, or surgery. There are not too many things that you can do as an individual to change your urinary frequency. It is important that you balance the amount of fluid intake needed to compensate for your activity and the temperature. Medical problems will be diagnosed and taken care of by your physician. There is no particular bladder training such as Kegel's exercises that you can do to help urinary frequency. This is an exercise this is usually done for people who have leaking of urine when they laugh cough or sneeze. HOME CARE INSTRUCTIONS ? Take any medications your healthcare provider prescribed or suggested. Follow the directions carefully. ? Practice any lifestyle changes that are recommended. These might include: ? Drinking less fluid or drinking at different times of the day. If you need to urinate often during the night, for example, you may need to stop drinking fluids early in the evening. ? Cutting down on caffeine or alcohol. They both can make you need to urinate more often than normal. Caffeine is found in coffee, tea and sodas. ? Losing weight, if that is recommended. ? Keep a journal or a log. You might be asked to record how much you drink and when and when you feel the need to urinate. This will also help evaluate how well the treatment provided by your physician is working. SEEK MEDICAL CARE IF: ? Your need to urinate often gets worse. ? You feel increased pain or irritation when you urinate. ? You notice blood in your urine. ? You have questions about any medications that your healthcare provider recommended. ? You notice blood, pus or swelling at the site of any test or treatment procedure. ? You develop a fever of more than 100.5? F (38.1? C). SEEK IMMEDIATE MEDICAL CARE IF: You develop a fever of more than 102.0? F (38.9? C). Document Released: 04/19/2010 Document Revised: 09/14/2012 Document Reviewed: 04/19/2010 ExitCare? Patient Information ?[address] [employer] [facility] Urology Office/Clinic Noteon 05-30-2020 Urology Office/Clinic Note Chief Complaint Pt. here due to still having symptoms of UTI. This patient is a 54-year-old female with a history of frequent voiding issues. She has what sounds like a very overactive bladder. She states she was recently treated with an oral antibiotic for a urinary tract infection that was found for urine culture and DNA study. She states while she was on the antibiotic her symptoms improved but soon as he finished the antibiotic her symptoms came back. She was referred here for help with evaluation and management of this infection. HPI Staff Pervious DX: urethral stricture, nocturia, urgency and incomplete bladder emptying. S/P Cysto/UD done 02/17/2020. Pt. states PCP put Pt. on ABX for 20 days and while on ABX she had no symptoms. Once done with ABX symptoms came back. PVR 0ml. Pain with urination:No Blood in urine:No Incomplete bladder emptying:Moderate Pt. states she was filling empty but is not now. Frequency:Mild Pt. states every 2 hours. Pt. states in the evening frequency is more. Urgency:Moderate Nocturia:Mild 1-2x's Post-void dribbling: Pt. states just stated a couple weeks ago. Stream:No Pt. states good stream. Leaking before getting to the restroom:No Urinary incontinence without sensory awareness:Mild Occasionally Temporarily unable to restrain urination with body movement:Mild Wearing pad/Depends:No Flank/Back pain:No Abdominal pain:No History of Present Illness Reviewed UA and last encounter. There have been no associated fever, chills, flank pain or blood in the urine. Pt. denies any pain/burning with urination at this time. Review of Systems ROS - Provider Constitutional: denies weight loss, denies hot flashes. Eyes: denies eye problems. Gastrointestinal: denies nausea, denies vomiting. Cardiovascular: denies chest pain or angina. Integumentary: no dryness Musculoskeletal: denies musculoskeletal symptoms. ENMT: denies otolaryngeal symptoms. Respiratory: no shortness of breath. Heme/Lymph: denies easy bleeding tendency, denies easy bruising tendency. Psychiatric: no confusion, no anxiety. Genitourinary: denies vaginal discharge, mild incontinence, denies dysuria, denies hematuria, denies urinary frequency, denies amenorrhea, denies menorrhagia, denies abnormal bleeding, denies pelvic pain, denies genital sores, and denies decreased libido. Physical Exam Vitals & Measurements HR: 81(Peripheral) RR: 16 BP: 115/76 HT: 179 cm HT: 179.0 cm WT: 67 kg WT: 67.0 kg BMI: 20.91 General Appearance: alert , no acute distress, well nourished, well developed female. Genitourinary: bladder nonpalpable, no flank pain. Assessment/Plan We had a long discussion about treatment options for symptomatic bladder. Long-term oral antibiotics are an option but not a very good one at this point. She would likely be better treated with something to help relieve her overactive bladder symptoms. Initially I was going to use oxybutynin but she is worried about using oxybutynin because her mother has dementia and she thinks this might have somehow contributed to her mother's dementia. We will use tolterodine 2 mg. Likely take it once a day for the first week and moved to twice a day if needed. I actually like her to use this on an as-needed basis. If medication does not manage this problem we will consider Botox injections if needed but we will discuss that until a later date. We will plan to see her back in the office in 6 weeks and check a PVR. 1. Urgency of urination (R39.15: Urgency of urination) Moderate. Pt. is taking Levsin SL 0.125mg qd and denies major improvements. Pt. states that she had a bladder DNA test done by PCP and strep was found. Pt. was put on Augmentin for 20 days and states that all her symptoms went away but shortly came back after the ABX. Pt. to d/c Levsin SL 0.125mg qd and will start pt. on Tolterodine 2mg bid. Discussed the medication side effects, and the patient will monitor closely for these, as well as for symptom improvement. If severe side effects occur, the medication should be stopped and the office notified. Pt. is advised to start with 1 tab and to increase to 2 tabs if pt. does not see a difference. All questions/concerns were discussed. Pt. to call the office if sheencounters any issues prior. Pt. acknowledges understanding. Script sent to [facility] in [place]. F/u in 6wks. w/ PVR. 2. Nocturia (R35.1: Nocturia) 1-2x/night as opposed to 5-6x/night. 3. Incomplete bladder emptying (R33.9: Retention of urine, unspecified) PVR today - 0ml. Previous encounter - 148ml. 4. Urethral stricture (N35.919: Unspecified urethral stricture, male, unspecified site) S/p Cysto/UD done 02/17/2020. Orders: tolterodine, 2 mg = 1 tab(s), Oral, BID, # 60 tab(s), Refills(s) 1, Pharmacy: [facility], 179, cm, 05/30/20 10:22:00 EST, Height/Length Dosing, 67, kg, 05/30/20 10:22:00 EST, Weight Dosing Measure Post Void residule urine and/or bladder capacity by US- non-imaging 07990 Urnls Dip Stick Auto w/o Microscopy POC 19454 I have reviewed the previous health record information and history for this pt. from Dr. Zepeda. Follow-up With When Contact Information Duane Chester MD, [place] [address]- Additional Instructions: 6wks. w/ PVR Patient Education Urinary Frequency I, Lexi Caldera , personally scribed for Dr. Zepeda on 05/30/2020 11:13:12. . Documentation recorded by the scribe, Lexi Caldera, accurately reflects the services(s) I performed and decisions made by me. Authenticated by Dr. Zepeda on 05/30/2020 14:58:44. Problem List/Past Medical History Ongoing Dysuria Incomplete bladder emptying Microscopic hematuria Nocturia Right flank pain Right sided abdominal pain Urethral stricture Urgency of urination Historical No qualifying data Procedure/Surgical History Cystoscopy (02/17/2020), Caesarean section, History of tonsillectomy. Medications cyanocobalamin 1000 mcg/mL Inj, IntraMuscular, qMonth magnesium aspartate, Oral, BID Xanax 0.25 mg Tab, See Instructions, PRN Zoloft, Oral, Daily Allergies Adhesive Bandage (Rash) Social History Tobacco Never (less than 100 in lifetime) Tobacco Use:., 05/30/2020 Family History Cancer: Father. Dementia: Mother. Lab Results Ambulatory Point of Care Results Bilirubin Urine Dipstick: Negative (05/30/20 10:05:00) Blood Urine Dipstick: Negative (05/30/20 10:05:00) Glucose Urine Dipstick: Negative (05/30/20 10:05:00) Ketones Urine Dipstick: Negative (05/30/20 10:05:00) Leukocytes Urine Dipstick: 2+ Moderate (05/30/20 10:05:00) Nitrite Urine Dipstick: Negative (05/30/20 10:05:00) Protein Urine Dipstick: Negative (05/30/20 10:05:00) Specific [place] Urine Dipstick: 1.020 (05/30/20 10:05:00) Urine Appearance Urine Dipstick: Clear (05/30/20 10:05:00) Urine Color Urine Dipstick: Yellow (05/30/20 10:05:00) Urobilinogen Urine Dipstick: Normal 0.2-1 EU/dl (05/30/20 10:05:00) pH Urine Dipstick: 8.5 (05/30/20 10:05:00) Diagnostic Results I reviewed the culture of the urine that was done by her primary care doc's office and the antibiotic that was used to treated. Apparently she was on appropriate antibiotic but her symptoms came back as soon as she stopped it. At this point I believe that most of her symptoms are related to her overactive bladder and significant amount of anxiety. Continuing oral antibiotics for long periods of time tend to lead to resistant organisms something would like to avoid. Normal [facility] Comment on above: Result Comment: Elec tronically Signed By: Duane Chester MD, [place]\.br\Date and Time Signed: 05/30/20 14:58 EST\.br\Electronically Co-Signed By: Lexi Caldera MA\.br\Date and Time Co-Signed: 05/30/20 11:14 EST Ambulatory Clinical Summaryo n 03-14-2020 Ambulatory Clinical Summary {[id number] [facility] Patient Educationon 03-14-20 20 Patient Education Family Medicine Urinary Frequency The number of times a normal person urinates depends upon how much liquid they take in and how much liquid they are losing. If the temperature is hot and there is high humidity then the person will sweat more and usually breathe a little more frequently. These factors decrease the amount of frequency of urination that would be considered normal. The amount you drink is easily determined, but the amount of fluid lost is sometimes more difficult to calculate. Fluid is lost in two ways: ? Sensible fluid loss is usually measured by the amount of urine that you get rid of. Losses of fluid can also occur with diarrhea. ? Insensible fluid loss is more difficult to measure. It is caused by evaporation. Insensible loss of fluid occurs through breathing and sweating. It usually ranges from a little less than a quart to a little more than a quart of fluid a day. In normal temperatures and activity levels the average person may urinate 4 to 7 times in a 24-hour period. Needing to urinate more often than that could indicate a problem. If one urinates 4 to 7 times in 24 hours and has large volumes each time, that could indicate a different problem from one who urinates 4 to 7 times a day and has small volumes. The time of urinating is also an important. Most urinating should be done during the waking hours. Getting up at night to urinate frequently can indicate some problems. CAUSES The bladder is the organ in your lower abdomen that holds urine. Like a balloon, it swells some as it fills up. Your nerves sense this and tell you it is time to head for the bathroom. There are a number of reasons that you might feel the need to urinate more often than usual. They include: ? Urinary tract infection. This is usually associated with other signs such as burning when you urinate. ? In men, problems with the prostate (a walnut-size gland that is located near the tube that carries urine out of your body). There are two reasons why the prostate can cause an increased frequency of urination: ? An enlarged prostate that does not let the bladder empty well. If the bladder only half empties when you urinate then it only has half the capacity to fill before you have to urinate again. ? The nerves in the bladder become more hypersensitive with an increased size of the prostate even if the bladder empties completely. ? . ? Obesity. Excess weight is more likely to cause a problem for women more than for men. ? Bladder stones or other bladder problems. ? Caffeine. ? Alcohol. ? Medications. For example, drugs that help the body get rid of extra fluid (diuretics ) increase urine production. Some other medicines must be taken with lots of fluids. ? Muscle or nerve weakness. This might be the result of a spinal cord injury, a stroke, multiple sclerosis or Parkinson's disease. ? Long-standing diabetes can decrease the sensation of the bladder. This loss of sensation makes it harder to sense the bladder needs to be emptied. Over a period of years the bladder is stretched out by constant overfilling. This weakens the bladder muscles so that the bladder does not empty well and has less capacity to fill with new urine. ? Interstitial cystitis (also called painful bladder syndrome). This condition develops because the tissues that line the insider of the bladder are inflamed (inflammation is the body's way of reacting to injury or infection). It causes pain and frequent urination. It occurs in women more often than in men. DIAGNOSIS ? To decide what might be causing your urinary frequency, your healthcare provider will probably: ? Ask about symptoms you have noticed. ? Ask about your overall health. This will include questions about any medications you are taking. ? Do a physical examination. ? Order some tests. These might include: ? A blood test to check for diabetes or other health issues that could be contributing to the problem. ? Urine testing. This could measure the flow of urine and the pressure on the bladder. ? A test of your neurological system (the brain, spinal cord and nerves). This is the system that senses the need to urinate. ? A bladder test to check whether it is emptying completely when you urinate. ? Cytoscopy. This test uses a thin tube with a tiny camera on it. It offers a look inside your urethra and bladder to see if there are problems. ? Imaging tests. You might be given a contrast dye and then asked to urinate. X-rays are taken to see how your bladder is working. TREATMENT It is important for you to be evaluated to determine if the amount or frequency that you have is unusual or abnormal. If it is found to be abnormal the cause should be determined and this can usually be found out easily. Depending upon the cause treatment could include medication, stimulation of the nerves, or surgery. There are not too many things that you can do as an individual to change your urinary frequency. It is important that you balance the amount of fluid intake needed to compensate for your activity and the temperature. Medical problems will be diagnosed and taken care of by your physician. There is no particular bladder training such as Kegel's exercises that you can do to help urinary frequency. This is an exercise this is usually done for people who have leaking of urine when they laugh cough or sneeze. HOME CARE INSTRUCTIONS ? Take any medications your healthcare provider prescribed or suggested. Follow the directions carefully. ? Practice any lifestyle changes that are recommended. These might include: ? Drinking less fluid or drinking at different times of the day. If you need to urinate often during the night, for example, you may need to stop drinking fluids early in the evening. ? Cutting down on caffeine or alcohol. They both can make you need to urinate more often than normal. Caffeine is found in coffee, tea and sodas. ? Losing weight, if that is recommended. ? Keep a journal or a log. You might be asked to record how much you drink and when and when you feel the need to urinate. This will also help evaluate how well the treatment provided by your physician is working. SEEK MEDICAL CARE IF: ? Your need to urinate often gets worse. ? You feel increased pain or irritation when you urinate. ? You notice blood in your urine. ? You have questions about any medications that your healthcare provider recommended. ? You notice blood, pus or swelling at the site of any test or treatment procedure. ? You develop a fever of more than 100.5? F (38.1? C). SEEK IMMEDIATE MEDICAL CARE IF: You develop a fever of more than 102.0? F (38.9? C). Document Released: 04/19/2010 Document Revised: 09/14/2012 Document Reviewed: 04/19/2010 ExitCare? Patient Information ?2013 [employer]. [facility] Urology Office/Clinic Noteon 03-14-2020 Urology Office/Clinic Note Chief Complaint This patient is a 54-year-old female with a history of an overactive bladder. She was recently treated with cystoscopy and urethral dilation of a significant urethral stenosis. She states that for 2 days she was really great and then her bladder started acting similar to what he had been doing preoperatively. She states that she has a lot of anxiety and that she is on antianxiety medications that do seem to be helping her bladder function. HPI Staff Pt. is here for 6 wks. f/u. S/p Cysto/UD 02/17/2020. Previous Dx: urgency, incomplete bladder emptying, and dysuria. Pt. states for the first 24hrs everything was going well, but soon urgency and frequency came back. Pt. was put on Cipro by Dr. Velázquez after the procedure for leucocytes in urine, but culture was neg. for growth and pt. stopped the med. Pt. then asked PCP to put her on Amoxicillin due to pt. reading possible urinary infection relating to strep? Pt. states symptoms seems to have improved a little since. Dysuria: burning, not with urination Incomplete bladder emptying: pt. feels more empty since the UD. PVR today - 148ml Hematuria: no Frequency: q2hr. Urgency: yes Nocturia: 5-6x, pt. states no big improvement Stream: average Leaking:no Post void dripping: no Wearing pads/ Depends: no Urge incontinence: no Stress incontinence: no Abdominal pain: no Flank pain: lower mid History of Present Illness reviewed UA. Reviewed op note. There have been no associated fever, chills, flank pain or blood in the urine. Pt is not having any burning with urination. Review of Systems PHQ Score Initial Depression Screen Score: 0 ROS - Provider Constitutional: denies weight loss, denies hot flashes. Eyes: denies eye problems. Gastrointestinal: denies nausea, denies vomiting. Cardiovascular: denies chest pain or angina. Integumentary: no dryness Musculoskeletal: denies musculoskeletal symptoms. ENMT: denies otolaryngeal symptoms. Respiratory: no shortness of breath. Heme/Lymph: denies easy bleeding tendency, denies easy bruising tendency. Psychiatric: no confusion, no anxiety. Genitourinary: denies vaginal discharge, denies incontinence, denies dysuria, denies hematuria, denies urinary frequency, denies amenorrhea, denies menorrhagia, denies abnormal bleeding, denies pelvic pain, denies genital sores, and denies decreased libido. Physical Exam Vitals & Measurements HR: 79(Peripheral) RR: 18 BP: 118/85 HT: 179 cm HT: 179.0 cm WT: 67 kg WT: 67.0 kg BMI: 20.91 General Appearance: alert , no acute distress, well nourished, well developed female. Genitourinary: bladder nonpalpable, no flank pain. Assessment/Plan This patient seems to have a significant problem with anxiety that may interfere with her bladder function. We are starting her on Levsin SL 0.125 mg on an as-needed basis. This should give her some significant improvement in her overall bladder function and she could use it only when needed. We will plan to see her back in the office in 4 months with a PVR. She will contact our office if she has any new bladder complaints. She did mention that she has some numbness and tingling in her toes on her right foot and she wonders if this is related to a lumbar or sacral spine issue that she believes is related to disc disease. She is mention the possibility of having an MRI and will have this discussion with her primary care physician. 1. Urethral stricture (N35.919: Unspecified urethral stricture, male, unspecified site) S/P cysto/UD done 02/17/20. Pt was dilated to 28FR. UA today is clear for infection or any blood in urine. 2. Nocturia (R35.1: Nocturia) 5-6x a night 3. Urgency of urination (R39.15: Urgency of urination) Pt states that the first 24 hours after Cysto/UD he symptoms improved and then she said that her symptoms returned. Pt is still having urgency symptoms. PCP put her on Cipro and culture was negative and ABX was stopped. Pt was then put on Amoxicillin due to strep? Pt states symptoms improved slightly. Pt is to Will try pt on Levsin SL 0.125 PRN. Pt will return to office in 4 months with PVR. Pt can call the office if her symptoms are better and can reschedule or she can come back if her symptoms worsen. 4. Incomplete bladder emptying (R33.9: Retention of urine, unspecified) Pt states that she is feeling more like she is emptying better since the Cysto/UD. PVR today was 148ml. Orders: hyoscyamine, 0.125 mg = 1 tab(s), Oral, q6hr, Take as needed, # 20 tab(s), Refills(s) 1, Pharmacy: [facility], 179, cm, 03/14/20 8:37:00 EDT, Height/Length Dosing, 67, kg, 03/14/20 8:44:00 EDT, Weight Dosing PVR urine/bladder capacity/[place] 44486 Urnls Dip Stick Auto w/o Microscopy POC 58425 I have reviewed the previous health record information and history for this patient from Dr. Zepeda Follow-up With When Contact Information Duane Chester MD, Michael Powell In 4 months [facility] [address], [place] [id number]- Additional Instructions: PVR Patient Education Urinary Frequency I, Corinne Garcia, personally scribed for Dr. Zepeda on 03/14/2020 09:28:27. . Documentation recorded by the scribe, Corinne Garcia, accurately reflects the services(s) I performed and decisions made by me. Authenticated by Dr. Zepeda on 03/14/2020 09:47:36. Problem List/Past Medical History Ongoing Dysuria Incomplete bladder emptying Microscopic hematuria Nocturia Right flank pain Right sided abdominal pain Urethral stricture Urgency of urination Historical No qualifying data Procedure/Surgical History Cystoscopy (02/17/2020), Caesarean section, History of tonsillectomy. Medications cyanocobalamin 1000 mcg/mL Inj, IntraMuscular, qMonth magnesium aspartate, Oral, BID Xanax 0.25 mg Tab, See Instructions, PRN Zoloft, Oral, Daily Allergies Adhesive Bandage (Rash) Social History Tobacco Never (less than 100 in lifetime) Tobacco Use:., 02/10/2020 Family History Cancer: Father. Dementia: Mother. Lab Results Ambulatory Point of Care Results Bilirubin Urine Dipstick: Negative (03/14/20 08:42:00) Blood Urine Dipstick: Negative (03/14/20 08:42:00) Glucose Urine Dipstick: Negative (03/14/20 08:42:00) Ketones Urine Dipstick: Negative (03/14/20 08:42:00) Leukocytes Urine Dipstick: Negative (03/14/20 08:42:00) Nitrite Urine Dipstick: Negative (03/14/20 08:42:00) Protein Urine Dipstick: Negative (03/14/20 08:42:00) Specific [place] Urine Dipstick: >=1.030 (03/14/20 08:42:00) Urine Appearance Urine Dipstick: Clear (03/14/20 08:42:00) Urine Color Urine Dipstick: Yellow (03/14/20 08:42:00) Urobilinogen Urine Dipstick: Normal 0.2-1 EU/dl (03/14/20 08:42:00) pH Urine Dipstick: 5.5 (03/14/20 08:42:00) Diagnostic Results Urinalysis was reviewed and it was negative for infection. Normal [facility] Comment on above: Result Comment: Elec tronically Signed By: Duane Chester MD, Michael Powell\.br\Date and Time Signed: 03/14/20 09:47 EDT\.br\Electronically Co-Signed By: Corinne Garcia MA\.br\Date and Time Co-Signed: 03/14/20 09:29 EDT Lab Reportson 03-02-2020 Lab Reports [id number] .00CD:127 Normal [facility] RAD - MISCon 03-02-2020 [facility] [id number]#1. 00CD:127 Normal [facility] Coding Summary.on 02-21-2020 Coding Summary. CODING DATE: 02/21/2020 FINAL [facility] STATUS: Home (Routine DC) PAYOR: [facility] DESCRIPTION 5373 Level 3 Urology and Related Services ADMIT DX: REASON FOR VISIT DX: R35.0 Frequency of micturition FINAL DX: PRINCIPAL: R35.0 Frequency of micturition SECONDARY: R39.15 Urgency of urination N35.028 Other post-traumatic urethral stricture, female R30.0 Dysuria R31.29 Other microscopic hematuria R10.9 Unspecified abdominal pain PYMT PROC APC STAT DESCRIPTION DOCTOR NAME DATE NOTE: The code number assigned matches the documented diagnosis and / or procedure in the patient's chart. However, the narrative phrase printed from the coding software may appear abbreviated, or result in slightly different terminology. Coded By: Angeles Rodríguez Date Saved: 02/21/2020 03:23 pm [facility] Consent for Procedure/Surger yon 02-21-2020 Consent for Procedure/Surgery [id number] .00CD:127 [facility] Discharge Instructionson Discharge Instructions [id number] .00CD:127 [facility] History and Physicalon 02-20 History and Physical [id number] .00CD:127 [facility] IntraOperative Documentson 0 02-21-2020 IntraOperative Documents [id number] .00CD:127 [facility] Consent for Treatmenton 02-04 Consent for Treatment [id number] .00CD:127 [facility] Main OR Intraoperative Recor don 02-17-2020 Main OR Intraoperative Record IntraOp Document Type FTURO Summary Primary Physician: Michael Zepeda Jr., MD Finalized Date/Time: 02/17/20 13:45:22 Pt. Name: EDNA SULTANA/Sex: 1965 Female Med Rec #: [id number] Physician: Michael Zepeda Jr., MD Financial #: [id number] Pt. Type: O Room/Bed: / Admit/Disch: 02/17/20 13:12:25 - Institution: Case Times FTURO Entry 1 Patient Times In Room 02/17/20 13:35:00 Out Room 02/17/20 13:50:00 Procedure Times Start 02/17/20 13:41:00 Stop 02/17/20 13:45:00 Anesthesia Times Last Modified By: ANTONINA Coello RN, Yolanda 02/17/20 13:44:52 Case Attendance FTURO Entry 1 Entry 2 Entry 3 Case Attendee Duane Chester MD, Michael Coello RN, CNOR, Ritu ASTORGA, Tonia Guerrero Role Performed Surgeon - Primary Forest Fire Officer - Primary Scrub - Primary Time In 02/17/20 13:35:00 02/17/20 13:35:00 02/17/20 13:35:00 Time Out 02/17/20 13:50:00 02/17/20 13:50:00 02/17/20 13:50:00 Procedure CYSTOSCOPY LOCAL WITH CYSTOSCOPY LOCAL WITH CYSTOSCOPY LOCAL WITH URETHRAL DILATION(.) URETHRAL DILATION(.) URETHRAL DILATION(.) Comments Last Modified By: Mode SALAZAR, CNOR, Mode SALAZAR, FAWADOR, Mode SALAZAR, FAWADOR, Yolanda 02/17/20 Yolanda 02/17/20 Yolanda 02/17/20 13:44:53 13:44:53 13:44:53 Surgical Procedures FTURO Entry 1 Procedure Description Procedure CYSTOSCOPY LOCAL WITH Modifiers . URETHRAL DILATION Surgeon Description CYSTOSCOPY WITH URETHRAL DILATION Primary Procedure Yes Primary Surgeon Duane Chester MD, Michael Powell Start 02/17/20 13:41:00 Stop 02/17/20 13:45:00 Anesthesia Type Local Surgical Service Urology Wound Class 2 - Clean-Contaminated Last Modified By: ANTONINA Coello RN, Yolanda 02/17/20 13:44:58 General Case Data FTURO Pre-Care Text: Classifies surgical wound, implements aseptic technique, initiates traffic control Entry 1 Case Information OR URO 1 FT Case Level None Wound Class 2 - Clean-Contaminated Specialty Urology Preop Diagnosis URGENCY, INCOMPLETE Postop Same As Preop No BLADDER EMPTYING, DYSURIA, MICROHEMATURIA Postop Diagnosis urethral stricture Outcomes Met? Yes Last Modified By: ANTONINA Coello RN, Yolanda 02/17/20 13:45:17 Post-Care Text: The patient is free from signs and symptoms of infection EU IntraOp - FTURO Pre-Care Text: Implements protective measures prior to operative or invasive procedure, confirms identity before the operative or invasive procedure, verifies operative procedure, surgical site, and laterality Entry 1 EU Perioperative Protocols Procedure(s) CYSTOSCOPY LOCAL WITH Patient Identity Birthday, ID Band URETHRAL DILATION(.) Verified (select at Check, Patient least 2): Participation Consents / H and P HandP, Surgery/Procedure Operative Site N/A Verified Consent Marking Verified Surgical Site Yes Laterality Verified n/a Verified Procedure Verified Yes Correct Patient Yes Position Verified Availability Equipment, Medication Time Out Michael Zepeda Jr., MD, Verified (If Participants Mode SALAZAR, FAWADOR, Applicable) Rtiu Guerrero NURSE CLINICAL, Tonia Time Out Complete 02/17/20 13:39:00 Allergies Reviewed? Yes Allergies Reviewed Self/Patient With Body Position Frog Legged Prep Area perineal area Prep Agents Betadine Solution Skin. Condition Unable to Visualize Additional None Specimens Collected Vitals - EU Blood Pressure 125/80 Pulse 95 bpm Respirations SPO2 EBL 0 IandO - EU Total Intake 0 mL Total Output 0 mL Outcomes Met? Yes Last Modified By: ANTONINA Coello RN, Ruthann 02/17/20 13:43:08 Post-Care Text: The patient is free from signs and symptoms of injury caused by extraneous objects Case Comments Finalized By: ANTONINA Coello RN, Ruthann Document Signatures Signed By: ANTONINA Coello RN, Ruthann 02/17/20 13:45 Normal [facility] Main OR Preoperative Recordo n 02-17-2020 Main OR Preoperative Record Holding Area Document Type FTURO Summary Primary Physician: Michael Zepeda Jr., MD Finalized Date/Time: 02/17/20 13:41:35 Pt. Name: EDNA SULTANA/Sex: 1965 Female Med Rec #: [id number] Physician: Michael Zepeda Jr., MD Financial #: [id number] Pt. Type: O Room/Bed: / Admit/Disch: 02/17/20 13:12:25 - Institution: Case Times Holding FTURO Pre-Care Text: Verifies consent for planned procedure, identifies individual values and wishes concerning care, includes family members in perioperative teaching Secures patient's records' belongings, and valuables, maintains patient's dignity and privacy, and maintains patient confidentiality Entry 1 In Holding 02/17/20 13:21:00 Outcomes Met? Yes Last Modified By: Cassandra Medeiros LPN 02/17/20 13:21:14 Post-Care Text: The patient participates in decisions affecting his or her perioperative plan of care The patient's right to privacy is maintained Surgery Checklist FTURO Entry 1 Patient Birthday, ID Band Procedure History and Physical, Identification: Check, Patient Verification: Surgical Consent, With Participation Patient NPO after Midnight: n/a Personal Items: Contact Lenses, Jewelry Personal Items earrings, rings x 2 Complaints of Pain: No Comment: Skin Integrity Unable to Visualize Vitals - EU Blood Pressure 123/80 Pulse 98 bpm Respirations 16 br/min SPO2 RN Reviewed Yes Last Modified By: ANTONINA Coello RN, Ruthann 02/17/20 13:41:33 General Comments: Temp. 36.3 Finalized By: ANTONINA Coello RN, Ruthann Document Signatures Signed By: Cassandra Medeiros LPN 02/17/20 13:25 Cassandra Medeiros LPN 02/17/20 13:25 ANTONINA Coello RN, Ruthann 02/17/20 13:41 Normal [facility] Operative Reporton 0 Operative Report Patient: EDNA SULTANA Age: 54 years Sex: Female : 1965 Associated Diagnoses: None Author: Duane Chester MD, Michael Powell Procedure Operative Information Details: Date/ Time: 02/17/2020 14:08:00. Pre-Op Dx: Frequency - R35.0, Urgency - R39.15, Urethral Stricture - Female Post Trauma Urethral Stricture Female - N35.028. Post-Op Dx: Same. Anesthesia Type: Local. Procedure: Local Cystoscopy with Urethral Dilation. Complications: None. Risks/Benefits/Inform ed Consent: Surgical risks, benefits, details of the procedure have been explained to the patient, Full informed consent has been obtained. Intraoperative Information Prepped: Patient is brought back to the endoscopy suite, Patient is placed in modified dorso/lithotomy position, Patient prepped in the usual fashion with Betadine solution, 2% Xylocaine Jelly is placed per Urethra, After waiting several minutes the Cystoscope is introduced. The Urethra is: Tight. The Bladder is: Normal, Trabeculated None (0), There was no obvious grade 2 cystocele. There may have been a small amount of hypermobility of the urethra but no cystocele or rectocele of any note was identified.. The ureteral orifices: Show efflux of clear urine. The Urethra was dilated to: 28 Thai w/ sounds. Devices Implanted: None. Removal: Cystoscope is removed, The patient tolerated it well. Postoperative Information Discharge: Patient is discharged home with antibiotic coverage, Follow up arranged. Normal [facility] Comment on above: Result Comment: Elec tronically Signed By: Duane Chester MD, Michael Sullivan.giselle\Date and Time Signed: 02/17/20 14:09 EDT Patient Educationon 02-17-20 Patient Education Cystoscopy with Urethral Dilation ? Voiding after the procedure: there may be some pain, urethral bleeding, burning, urgency, frequency and blood tinged urine following the procedure. These symptoms usually resolve within 2-5 days. Drink the amount of fluid it takes to keep the urine pink to yellow or clear in color. Drinking enough water and fluids will help to ease any discomfort after your procedure. ? If you are having problems that seem out of the ordinary, please call. ? If unable to contact your physician and you feel it is an emergency, go to the nearest emergency room or call 911 ? Diet ? you may resume your normal diet. ? Activity ? you may resume your normal activities ? Call if you have a fever over 100 degrees Normal [facility] Ambulatory Clinical Summaryo n 02-11-2020 Ambulatory Clinical Summary {[id number] Normal [facility] Patient Educationon 02-10-20 Patient Education Urinary Tract Infection Urinary tract infections (UTIs) can develop anywhere along your urinary tract. Your urinary tract is your body's drainage system for removing wastes and extra water. Your urinary tract includes two kidneys, two ureters, a bladder, and a urethra. Your kidneys are a pair of nick-shaped organs. Each kidney is about the size of your fist. They are located below your ribs, one on each side of your spine. CAUSES Infections are caused by microbes, which are microscopic organisms, including fungi, viruses, and bacteria. These organisms are so small that they can only be seen through a microscope. Bacteria are the microbes that most commonly cause UTIs. SYMPTOMS Symptoms of UTIs may vary by age and gender of the patient and by the location of the infection. Symptoms in young women typically include a frequent and intense urge to urinate and a painful, burning feeling in the bladder or urethra during urination. Older women and men are more likely to be tired, shaky, and weak and have muscle aches and abdominal pain. A fever may mean the infection is in your kidneys. Other symptoms of a kidney infection include pain in your back or sides below the ribs, nausea, and vomiting. DIAGNOSIS To diagnose a UTI, your caregiver will ask you about your symptoms. Your caregiver also will ask to provide a urine sample. The urine sample will be tested for bacteria and white blood cells. White blood cells are made by your body to help fight infection. TREATMENT Typically, UTIs can be treated with medication. Because most UTIs are caused by a bacterial infection, they usually can be treated with the use of antibiotics. The choice of antibiotic and length of treatment depend on your symptoms and the type of bacteria causing your infection. HOME CARE INSTRUCTIONS ? If you were prescribed antibiotics, take them exactly as your caregiver instructs you. Finish the medication even if you feel better after you have only taken some of the medication. ? Drink enough water and fluids to keep your urine clear or pale yellow. ? Avoid caffeine, tea, and carbonated beverages. They tend to irritate your bladder. ? Empty your bladder often. Avoid holding urine for long periods of time. ? Empty your bladder before and after sexual intercourse. ? After a bowel movement, women should cleanse from front to back. Use each tissue only once. SEEK MEDICAL CARE IF: ? You have back pain. ? You develop a fever. ? Your symptoms do not begin to resolve within 3 days. SEEK IMMEDIATE MEDICAL CARE IF: ? You have severe back pain or lower abdominal pain. ? You develop chills. ? You have nausea or vomiting. ? You have continued burning or discomfort with urination. MAKE SURE YOU: ? Understand these instructions. ? Will watch your condition. ? Will get help right away if you are not doing well or get worse. Document Released: 04/02/2006 Document Revised: 12/22/2012 Document Reviewed: 07/31/2012 ExitCare? Patient Information ?[address] [facility] Urology Office/Clinic Noteon 02-10-2020 Urology Office/Clinic Note Chief Complaint referral due to frequency and possible prolapse bladder This patient is a 54-year-old female with a history of frequency urgency and a feeling of incomplete emptying. She states she is been told she has a grade 2 cystocele. She is here today for urologic evaluation. HPI Staff Pt is referred to our office due to frequency and possible bladder prolapse. Pt states that on December 02 and she had a very bad bladder infection and was treated with Macrobid and she had real bad diarrhea. Then she stopped this ABX. Pt had a KUB done at the [facility]. Pt started a probiotic plexus and she said she has been having urgency and frequency. Pt states that Dr. Hi dx her with a Grade 2 bladder prolapse. Pt states that her grandfather had bladder cancer. PVR today 286ml. Dysuria: pt is having some burning, but not with urination Incomplete bladder emptying: pt states that she is feeling like she is emptying. Hematuria: denies any blood in urine, TRACE in sample today Frequency: pt states that she can go 2-3 hours in between Urgency: yes Nocturia: 1x Stream: average stream, no hesitation, occasional intermittent stream Urge incontinence: this happened a little bit last week Abdominal pain: right side Flank pain: right flank pain, History of Present Illness Reviewed UA. Reviewed PVR. Reviewed KUB. There have been no associated fever or chills. Pt. states that she is having burning, but not with urination. Review of Systems PHQ Score Initial Depression Screen Score: 0 ROS - Provider Constitutional: denies weight loss, denies hot flashes. Eyes: denies eye problems. Gastrointestinal: denies nausea, denies vomiting. Cardiovascular: denies chest pain or angina. Integumentary: no dryness Musculoskeletal: denies musculoskeletal symptoms. ENMT: denies otolaryngeal symptoms. Respiratory: no shortness of breath. Heme/Lymph: denies easy bleeding tendency, denies easy bruising tendency. Psychiatric: no confusion, no anxiety. Genitourinary: denies vaginal discharge, denies incontinence, mild dysuria, mild hematuria,microscopic denies urinary frequency, denies amenorrhea, denies menorrhagia, denies abnormal bleeding, denies pelvic pain, denies genital sores, and denies decreased libido. Physical Exam Vitals & Measurements HR: 81(Peripheral) RR: 18 BP: 141/98 HT: 179 cm WT: 68 kg BMI: 21.22 General Appearance: alert , no acute distress, well nourished, well developed female. Head: normocephalic . Eyes: normal orbit and globe. ENMT: normal examination of external ears. Chest: Lungs CTA, respirations non labored . Cardiovascular: regular rate and rhythm. Abdomen: soft, non distended, no tenderness, no mass or organomegaly, no hernia. Lymph Nodes: unremarkable palpation of the cervical area. Skin: warm, dry, no bruising. Psychiatric: cooperative, affect appropriate for age, normal judgement, euthymic mood. Assessment/Plan This patient has symptoms consistent with urethral stenosis. She does have frequency and some urgency I suspect she does not empty her bladder completely and periodic vaginal infections with yeast. She will try an [id number] antifungal cream to be used on an as-needed basis. We will schedule her for cystoscopy and urethral dilation of a suspected urethral stenosis. We will do an examination to determine the extent of her cystocele if she has 1. Urinalysis today is negative for infection. 1. Urgency of urination (R39.15: Urgency of urination) Pt. states that it started after taking probiotic plexus and feel that she is going all the time. Will schedule Cysto with UD. The procedure risks, benefits, details, and treatment alternatives have been discussed with the patient. These include bleeding, infection, recurrent scar in over 50%, need for repeat dilation or other procedures, no symptom relief with dilation, among others. Full informed consent has been obtained. Will order Local anesthesia. ABX sent to [facility] in [place]. Ordered: Urology Procedure Order 2. Incomplete bladder emptying (R33.9: Retention of urine, unspecified) Pt. states that she is emptying. PVR today 286ml. Ordered: Urology Procedure Order 3. Dysuria (R30.0: Dysuria) Pt. states that she is having burning, but not with urination. Advised pt. to use OTC vaginal creams for the infected areas. Ordered: Urology Procedure Order 4. Microscopic hematuria (R31.29: Other microscopic hematuria) UA today shows a TRACE-intact amount of blood. Ordered: Urology Procedure Order Right flank pain (R10.9: Unspecified abdominal pain) Orders: ciprofloxacin, 500 mg = 1 tab(s), Oral, Daily, Take 1 day prio to Cysto and 1 after Cysto completed, X 2 day(s), # 2 tab(s), Refills(s) 0, Pharmacy: [facility], 179, cm, 02/10/20 9:03:00 EDT, Height/Length Measured, 68, kg, 02/10/20 9:03:00 EDT, Weight Kuldeep... PVR urine/bladder capacity/[place] 45315 Urnls Dip Stick Auto w/o Microscopy POC 18310 I have reviewed the previous health record information and history for this pt. from Dr. Zepeda. Follow-up No qualifying data available Patient Education Urinary Tract Infection I, Lexi Caldera , personally scribed for Dr. Zepeda on 02/10/2020 09:50:27. . Documentation recorded by the scribe, Lexi Caldera, accurately reflects the services(s) I performed and decisions made by me. Authenticated by Dr. Zepeda on 02/10/2020 10:10:40. Problem List/Past Medical History Ongoing Dysuria Incomplete bladder emptying Microscopic hematuria Right flank pain Right sided abdominal pain Urgency of urination Historical No qualifying data Procedure/Surgical History Caesarean section, History of tonsillectomy. Medications calcium (as calcium citrate) 200 mg oral tablet, Oral, BID cyanocobalamin 1000 mcg/mL Inj, IntraMuscular, qMonth magnesium aspartate, Oral, BID Xanax 0.25 mg Tab, Oral, TID Allergies Adhesive Bandage (Rash) Social History Tobacco Never (less than 100 in lifetime) Tobacco Use:., 02/10/2020 Family History Cancer: Father. Dementia: Mother. Lab Results Ambulatory Point of Care Results Bilirubin Urine Dipstick: Negative (02/10/20 09:28:00) Blood Urine Dipstick: Trace-intact (02/10/20 09:28:00) Glucose Urine Dipstick: Negative (02/10/20 09:28:00) Ketones Urine Dipstick: Negative (02/10/20 09:28:00) Leukocytes Urine Dipstick: Negative (02/10/20 09:28:00) Nitrite Urine Dipstick: Negative (02/10/20 09:28:00) Protein Urine Dipstick: Negative (02/10/20 09:28:00) Specific [place] Urine Dipstick: 1.010 (02/10/20 09:28:00) Urine Appearance Urine Dipstick: Clear (02/10/20 09:28:00) Urine Color Urine Dipstick: Light yellow (02/10/20 09:28:00) Urobilinogen Urine Dipstick: Normal 0.2-1 EU/dl (02/10/20 09:28:00) pH Urine Dipstick: 6.5 (02/10/20 09:28:00) Diagnostic Results Reviewed urinalysis showed no infection. Reviewed notes from her primary care physician's office. Reviewed laboratory studies from [facility] and [facility]. Reviewed KUB x-ray from 01/28/2020 showing large amount of stool in the colon. Normal [facility] Comment on above: Result Comment: Elec tronically Signed By: Duane Chester MD, Michael Powell\.br\Date and Time Signed: 02/10/20 10:11 EDT\.br\Electronically Co-Signed By: Werner KNOX, Lexi Andino\.br\Date and Time Co-Signed: 02/10/20 09:50 EDT ANTI-SSAon 01-19-2019 ANTI-SSA <0.2 Normal [facility] Comment on above: Result Comment: REF VALUES < 1.0 = NEGATIVE >=1.0 = POSITIVE Performed By: #### A -SSA #### [facility] [address] [place] [address] ANTI-SSBon 01-19-2019 ANTI-SSB <0.2 Normal [facility] Comment on above: Result Comment: REF VALUES < 1.0 = NEGATIVE >=1.0 = POSITIVE Performed By: #### A -SSB #### [facility] [address] [place] [address] C-REACTIVE PROTEINon 019 CRP [Mass/Vol] 0.13 mg/dL Normal [facility] Comment on above: Result Comment: REF VALUE < 1.00 Performed By: #### C RP #### [facility] [address] [place] [address] SEDIMENTATION RATE, ERYTHROC YTEon 01-19-2019 SEDIMENTATION RATE, ERYTHROCYTE 3 mm/h Normal 0 - 30 [facility] Comment on above: Performed By: #### E SRWS #### [facility] [address] [place] [address] Vital Signs Date Time Vital Sign Value Performing Clinician Facility 05-22-2023 11:30-0500 Body height 177.16 cm Yannick Velázquez Other [facility] Other 05-22-2023 11:30-0500 Body mass index (BMI) [Ratio] 22.4 kg/m2 Yannick Velázquez Other [facility] Other 05-22-2023 11:30-0500 Body temperature 98.5 [degF] Yannick Velázquez Other [facility] Other 05-22-2023 11:30-0500 Body weight 70.31 kg Yannick Velázquez Other [facility] Other 05-22-2023 11:30-0500 Diastolic blood pressure 88 mm[Hg] Yannick Velázquez Other [facility] Other 05-22-2023 11:30-0500 Respiratory rate 18 /min Yannick Velázquez Other [facility] Other 05-22-2023 11:30-0500 SaO2% (BldA) [Mass fraction] 98 % Yannick Velázquez Other [facility] Other 05-22-2023 11:30-0500 Systolic blood pressure 138 mm[Hg] Yannick Velázquez Other [facility] Other 03-19-2023 15:20-0400 Body height 177.16 cm Victorina Blades Other [facility] Other 03-19-2023 15:20-0400 Body mass index (BMI) [Ratio] 23.26 kg/m2 Victorina Blades Other [facility] Other 03-19-2023 15:20-0400 Body weight 73.03 kg Victorina Blades Other [facility] Other 03-19-2023 15:20-0400 Diastolic blood pressure 84 mm[Hg] Victorina Blades Other [facility] Other 03-19-2023 15:20-0400 Systolic blood pressure 130 mm[Hg] Victorina Blades Other [facility] Other 02-23-2023 13:27-0400 Body height 177.8 cm DO Yannikc Velázquez Work Phone: [facility] 02-23-2023 13:27-0400 Body temperature 99 [degF] DO Yannick Velázquez Work Phone: [facility] 02-23-2023 13:27-0400 Body weight 72.05 kg DO Yannick Velázquez Work Phone: [facility] 02-23-2023 13:27-0400 Diastolic blood pressure 95 mm[Hg] DO Yannick Velázquez Work Phone: [facility] 02-23-2023 13:27-0400 Heart rate 101 /min DO Yannick Velázquez Work Phone: [facility] 02-23-2023 13:27-0400 Respiratory rate 18 /min DO Yannick Velázquez Work Phone: [facility] 02-23-2023 13:27-0400 SaO2% (BldA) [Mass fraction] 98 % DO Yannick Velázquez Work Phone: [facility] 02-23-2023 13:27-0400 Systolic blood pressure 152 mm[Hg] DO Yannick Velázquez Work Phone: [facility] 02-12-2023 10:00-0400 Body height 177.16 cm Victorina Blades Other [facility] Other 02-12-2023 10:00-0400 Body mass index (BMI) [Ratio] 23.41 kg/m2 Victorina Blades Other [facility] Other 02-12-2023 10:00-0400 Body weight 73.48 kg Victorina Blades Other [facility] Other 02-12-2023 10:00-0400 Diastolic blood pressure 82 mm[Hg] Victorina Blades Other [facility] Other 02-12-2023 10:00-0400 Systolic blood pressure 120 mm[Hg] Victorina Blades Other [facility] Other 01-21-2023 09:10-0400 Body height 177.16 cm Tonia Sandoval Other [facility] Other 01-21-2023 09:10-0400 Body mass index (BMI) [Ratio] 23.84 kg/m2 Tonia Sandoval Other [facility] Other 01-21-2023 09:10-0400 Body temperature 97.6 [degF] Tonia Sandoval Other [facility] Other 01-21-2023 09:10-0400 Body weight 74.84 kg Tonia Sandoval Other [facility] Other 01-21-2023 09:10-0400 Diastolic blood pressure 88 mm[Hg] Tonia Sandoval Other [facility] Other 01-21-2023 09:10-0400 Respiratory rate 18 /min Tonia Sandoval Other [facility] Other 01-21-2023 09:10-0400 SaO2% (BldA) [Mass fraction] 99 % Tonia Sandoval Other [facility] Other 01-21-2023 09:10-0400 Systolic blood pressure 125 mm[Hg] Tonia Sandoval Other [facility] Other 12-20-2022 08:10-0400 Body height 177.16 cm Yannick Velázquez Other [facility] Other 12-20-2022 08:10-0400 Body mass index (BMI) [Ratio] 23.55 kg/m2 Yannick Velázquez Other [facility] Other 12-20-2022 08:10-0400 Body temperature 98.6 [degF] Yannick Velázquez Other [facility] Other 12-20-2022 08:10-0400 Body weight 73.94 kg Yannick Velázquez Other [facility] Other 12-20-2022 08:10-0400 Diastolic blood pressure 70 mm[Hg] Yannick Velázquez Other [facility] Other 12-20-2022 08:10-0400 Respiratory rate 20 /min Yannick Velázquez Other [facility] Other 12-20-2022 08:10-0400 SaO2% (BldA) [Mass fraction] 97 % Yannick Velázquez Other [facility] Other 12-20-2022 08:10-0400 Systolic blood pressure 110 mm[Hg] Yannick Velázquez Other [facility] Other 07-19-2022 13:30-0500 Body height 177.16 cm Yannick Velázquez Other [facility] Other 07-19-2022 13:30-0500 Body mass index (BMI) [Ratio] 24.2 kg/m2 Yannick Velázquez Other [facility] Other 07-19-2022 13:30-0500 Body temperature 97.8 [degF] Yannick Velázquez Other [facility] Other 07-19-2022 13:30-0500 Body weight 75.98 kg Yannick Velázquez Other [facility] Other 07-19-2022 13:30-0500 Diastolic blood pressure 82 mm[Hg] Yannick Velázquez Other [facility] Other 07-19-2022 13:30-0500 Respiratory rate 18 /min Yannick Velázquez Other [facility] Other 07-19-2022 13:30-0500 SaO2% (BldA) [Mass fraction] 97 % Yannick Velázquez Other [facility] Other 07-19-2022 13:30-0500 Systolic blood pressure 116 mm[Hg] Yannick Velázquez Other [facility] Other 06-24-2022 15:40-0500 Body height 177.16 cm Yannick Velázquez Other [facility] Other 01-28-2022 14:45-0400 Body height 177.16 cm Shara Layton Other [facility] Other 01-28-2022 14:45-0400 Body mass index (BMI) [Ratio] 24.71 kg/m2 Shara Layton Other [facility] Other 01-28-2022 14:45-0400 Body temperature 98.5 [degF] Shara Layton Other [facility] Other 01-28-2022 14:45-0400 Body weight 77.57 kg Shara Layton Other [facility] Other 01-28-2022 14:45-0400 Diastolic blood pressure 79 mm[Hg] Shara Layton Other [facility] Other 01-28-2022 14:45-0400 Respiratory rate 18 /min Shara Layton Other [facility] Other 01-28-2022 14:45-0400 SaO2% (BldA) [Mass fraction] 99 % Shara Layton Other [facility] Other 01-28-2022 14:45-0400 Systolic blood pressure 111 mm[Hg] Shara Layton Other [facility] Other 01-09-2022 15:20-0400 Body height 177.16 cm Yannick Velázquez Other [facility] Other 01-09-2022 15:20-0400 Body mass index (BMI) [Ratio] 25 kg/m2 Yannick Velázquez Other [facility] Other 01-09-2022 15:20-0400 Body temperature 98.1 [degF] Yannick Johnnakaren Other [facility] Other 01-09-2022 15:20-0400 Body weight 78.47 kg Yannick Gisel Other [facility] Other 01-09-2022 15:20-0400 Diastolic blood pressure 76 mm[Hg] Yannick Gisel Other [facility] Other 01-09-2022 15:20-0400 Respiratory rate 18 /min Yannick Johnnakaren Other [facility] Other 01-09-2022 15:20-0400 SaO2% (BldA) [Mass fraction] 97 % Yannick Johnnakaren Other [facility] Other 01-09-2022 15:20-0400 Systolic blood pressure 120 mm[Hg] Yannick Gisel Other [facility] Other 09-10-2021 12:10-0500 Body height 177.16 cm Yannick Gisel Other [facility] Other 09-10-2021 12:10-0500 Body mass index (BMI) [Ratio] 24.42 kg/m2 Yannick Johnnakaren Other [facility] Other 09-10-2021 12:10-0500 Body temperature 97.9 [degF] Yannick Velázquez Other [facility] Other 09-10-2021 12:10-0500 Body weight 76.66 kg Yannick Velázquez Other [facility] Other 09-10-2021 12:10-0500 Diastolic blood pressure 80 mm[Hg] Yannick Gisel Other [facility] Other 09-10-2021 12:10-0500 Respiratory rate 16 /min Yannick Velázquez Other [facility] Other 09-10-2021 12:10-0500 SaO2% (BldA) [Mass fraction] 97 % Yannick Gisle Other [facility] Other 09-10-2021 12:10-0500 Systolic blood pressure 118 mm[Hg] Yannick Johnnakaren Other [facility] Other 06-11-2021 12:10-0500 Body height 177.16 cm Yannick Johnnakaren Other [facility] Other 06-11-2021 12:10-0500 Body mass index (BMI) [Ratio] 23.34 kg/m2 Yannick Gisel Other [facility] Other 06-11-2021 12:10-0500 Body temperature 97.6 [degF] Yannick Oropezakaren Other [facility] Other 06-11-2021 12:10-0500 Body weight 73.26 kg Yannick Johnnakaren Other [facility] Other 06-11-2021 12:10-0500 Diastolic blood pressure 88 mm[Hg] Yannick Gisel Other [facility] Other 06-11-2021 12:10-0500 Respiratory rate 18 /min Yannick Johnnakaren Other [facility] Other 06-11-2021 12:10-0500 SaO2% (BldA) [Mass fraction] 99 % Yannick Velázquez Other [facility] Other 06-11-2021 12:10-0500 Systolic blood pressure 122 mm[Hg] Yannick Velázquez Other [facility] Other 09-06-2020 13:39-0500 Body weight 70.76 kg [facility] 09-06-2020 13:39-0500 Height 180.3 cm [facility] Encounters Encounter Date Encounter Type Care Provider Facility Start: 06-17-2023 End: 06-17-2023 ambulatory Yannick Velázquez Other [facility] Other Start: 06-17-2023 Office outpatient visit 15 minutes Yannick Velázquez [facility] [place] Start: 05-27-2023 End: 05-28-2023 ambulatory Ynanick Velázquez DO Facility:[facility] Start: 05-23-2023 End: 05-23-2023 ambulatory Yannick Velázquez Other [facility] Other Start: 05-23-2023 Telephone encounter Yannick Velázquez [facility] [place] Start: 05-22-2023 End: 05-22-2023 ambulatory Yannick Velázquez Other [facility] Other Start: 05-22-2023 Office outpatient visit 25 minutes Yannick Velázquez [facility] [place] Start: 04-29-2023 End: 04-29-2023 ambulatory Yannick Velázquez Other [facility] Other Start: 04-29-2023 Telephone encounter Yannick Velázquez [facility] Start: 04-16-2023 End: 04-16-2023 ambulatory Yannick Velázquez Other [facility] Other Start: 04-16-2023 Telephone encounter Yannick Velázquez [facility] Start: 04-15-2023 End: 04-15-2023 ambulatory Yannick Velázquez Other [facility] Other Start: 04-15-2023 Telephone encounter Yannick Velázquez [facility] [place] Start: 04-02-2023 End: 04-02-2023 ambulatory Yannick Velázquez Other [facility] Other Start: 04-02-2023 Telephone encounter Yannick Velázquez [facility] [place] Start: 03-19-2023 End: 03-19-2023 ambulatory Victorina Martinez Other [facility] Other Start: 03-19-2023 Office outpatient visit 15 minutes Victorina Martinez [facility] Start: 03-13-2023 End: 03-13-2023 ambulatory Yannick Velázquez Other [facility] Other Start: 03-13-2023 Telephone encounter Yannick Velázquez [facility] [place] Start: 03-05-2023 End: 03-05-2023 ambulatory Yannick Velázquez Other [facility] Other Start: 03-05-2023 Telephone encounter Yannick Velázquez [facility] [place] Start: 03-03-2023 End: 03-03-2023 ambulatory Yannick Velázquez Other [facility] Other Start: 03-03-2023 Telephone encounter Yannick Velázquez [facility] [place] Start: 02-27-2023 End: 02-27-2023 ambulatory Yannick Velázquez Facility:[facility] Start: 02-27-2023 End: 02-27-2023 ambulatory DO Yannick Velázquez Work Phone: [facility] Work Phone: Start: 02-27-2023 End: 02-27-2023 Patient encounter procedure DO Yannick Velázquez Work Phone: [facility] [address] [place] Work Phone: Start: 02-23-2023 End: 02-23-2023 Emergency department patient visit Yannick Velázquez Facility:[facility] Start: 02-23-2023 End: 02-23-2023 Emergency department patient visit DO Yannick Velázquez Work Phone: [facility] Work Phone: Start: 02-14-2023 End: 02-14-2023 ambulatory Victorina Blades Other [facility] Other Start: 02-14-2023 Telephone encounter Victorina Blades [facility] Start: 02-12-2023 End: 02-12-2023 ambulatory Victorina Blades Other [facility] Other Start: 02-12-2023 Office outpatient visit 15 minutes Victorina Blades [facility] Start: 02-10-2023 End: 02-10-2023 ambulatory Yannick Velázquez Other [facility] Other Start: 02-10-2023 Telephone encounter Yannick Velázquez [facility] Start: 02-05-2023 End: 02-05-2023 ambulatory Yannick Velázquez Other [facility] Other Start: 02-05-2023 Telephone encounter Yannick Velázquez [facility] Start: 01-21-2023 End: 01-21-2023 ambulatory Tonia Sandoval Other [facility] Other Start: 01-21-2023 Office outpatient visit 25 minutes Tonia Sandoval [facility] Start: 01-08-2023 End: 01-08-2023 ambulatory Yannick Velázquez Other [facility] Other Start: 01-08-2023 Telephone encounter Yannick Velázquez [facility] Start: 01-03-2023 End: 01-03-2023 ambulatory Yannick Velázquez Other [facility] Other Start: 01-03-2023 Telephone encounter Yannick Velázquez [facility] Start: 01-02-2023 Telephone encounter Yannick Velázquez [facility] Start: 01-02-2023 End: 01-02-2023 ambulatory Yannick Velázquez Facility:[facility] Start: 01-02-2023 End: 01-02-2023 ambulatory DO Yannick Oropezakaren Work Phone: [facility] Work Phone: Start: 01-02-2023 End: 01-02-2023 Patient encounter procedure DO Yannick Velázquez Work Phone: [facility] [place] Work Phone: Start: 12-20-2022 End: 12-20-2022 ambulatory Yannick Velázquez Other [facility] Other Start: 12-20-2022 Office outpatient visit 25 minutes Yannick Velázquez [facility] [place] Start: 09-24-2022 End: 09-24-2022 ambulatory Victorina Martinez Other [facility] Other Start: 09-24-2022 Telephone encounter Victorina Andino [facility] [employer] Start: 09-16-2022 End: 09-16-2022 ambulatory Yannick Velázquez Other [facility] Other Start: 09-16-2022 Office outpatient visit 10 minutes Yannick Velázquez [facility] Start: 09-16-2022 Telephone encounter Yannick Velázquez [facility] [place] Start: 08-29-2022 End: 08-29-2022 ambulatory Yannick Velázquez Other [facility] Other Start: 08-29-2022 Telephone encounter Yannick Velázquez [facility] [place] Start: 08-28-2022 End: 08-28-2022 ambulatory Yannick Velázquez Facility:[facility] Start: 08-28-2022 End: 08-28-2022 ambulatory DO Yannick Velázquez Work Phone: [facility] Work Phone: Start: 08-28-2022 End: 08-28-2022 Patient encounter procedure DO Yannick Velázquez Work Phone: [facility] [place] Work Phone: Start: 08-07-2022 End: 08-07-2022 ambulatory Yannick Velázquez Other [facility] Other Start: 08-07-2022 Telephone encounter Yannick Velázquez [facility] [place] Start: 07-24-2022 End: 07-24-2022 ambulatory Yannick Velázquez Other [facility] Other Start: 07-24-2022 Telephone encounter Yannick Velázquez [facility] [place] Start: 07-19-2022 End: 07-19-2022 ambulatory Yannick Velázquez Other [facility] Other Start: 07-19-2022 Office outpatient visit 25 minutes Yannick Velázquez [facility] [place] Start: 07-03-2022 End: 07-04-[address] YANNICK VELÁZQUEZ Facility: Start: 07-03-2022 Telephone encounter Yannick Velázquez [facility] [place] Start: 06-24-2022 End: 06-24-2022 ambulatory Yannick Velázquez Other [employer] Other Start: 06-24-2022 Office outpatient visit 15 minutes Yannick Velázquez [facility] [place] Start: 06-24-2022 Telephone encounter Yannick Velázquez [facility] [place] Start: 05-29-2022 End: 05-29-2022 ambulatory Yannick Velázquez Other [employer] Other Start: 05-29-2022 Telephone encounter Yannick Velázquez [facility] [place] Start: 05-09-2022 End: 05-09-2022 ambulatory Yannick Velázquez Other [employer] Other Start: 05-09-2022 Telephone encounter Yannick Velázquez [facility] [place] Start: 04-10-2022 End: 04-10-2022 ambulatory Yannick Velázquez Other [employer] Other Start: 04-10-2022 Office outpatient visit 15 minutes Yannick Velázquez [facility] [place] Start: 03-26-2022 End: 03-26-2022 ambulatory Yannick Velázquez Other [employer] Other Start: 03-26-2022 Office outpatient visit 15 minutes Yannick Velázquez [facility] [place] Start: 03-20-2022 End: 03-21-[address] YANNICK VELÁZQUEZ Facility:[facility] Start: 02-15-2022 End: 02-15-2022 ambulatory Yannick Velázquez Other [employer] Other Start: 02-15-2022 Telephone encounter Yannick Velázquez [facility] [place] Start: 01-28-2022 End: 01-28-2022 Patient encounter procedure SITE AUDITOR-C Shara Layton Work Phone: [facility] [place] Start: 01-28-2022 End: 01-28-2022 ambulatory Shara Layton Other [employer] Other Start: 01-28-2022 Office outpatient visit 15 minutes Shara Layton [facility] [place] Start: 01-11-2022 End: 01-11-2022 ambulatory Yannick Velázquez Other [employer] Other Start: 01-11-2022 Telephone encounter Yannick Velázquez [facility] [place] Start: 01-10-2022 End: 01-11-[address] YANNICK VELÁZQUEZ Facility:[facility] Start: 01-09-2022 End: 01-09-2022 ambulatory Yannick Velázquez Other [employer] Other Start: 01-09-2022 Office outpatient visit 15 minutes Yannick Velázquez [facility] [place] Start: 01-08-2022 End: 01-08-2022 ambulatory Yannick Velázquez Other [employer] Other Start: 01-08-2022 Telephone encounter Yannick Velázquez [facility] [place] Start: 12-24-2021 End: 12-24-2021 ambulatory Yannick Velázquez Other [employer] Other Start: 12-24-2021 Telephone encounter Yannick Velázquez [facility] [place] Start: 12-11-2021 End: 12-11-2021 ambulatory Yannick Velázquez Other [employer] Other Start: 12-11-2021 Office outpatient visit 15 minutes Yannick Velázquez [facility] [place] Start: 12-11-2021 Telephone encounter Yannick Velázquez [facility] [place] Start: 09-10-2021 End: 09-10-2021 ambulatory Yannick Velázquez Other [employer] Other Start: 09-10-2021 Office outpatient visit 15 minutes Yannick Velázquez [facility] [place] Start: 08-01-2021 End: 08-01-[address] YANNICK VELÁZQUEZ Facility: Start: 06-11-2021 End: 06-11-2021 ambulatory Yannick Velázquez Other [employer] Other Start: 06-11-2021 Office outpatient visit 15 minutes Yannick Velázquez [facility] [place] Start: 09-06-2020 End: 09-06-2020 Patient encounter procedure David Quiñonez Work Phone: Urology Comment on above: Dysuria; Cystocele with prolapse; Nocturia Procedures Date Procedure Procedure Detail Performing Clinician Start: 02-27-2023 MR lumbar spine wo con DO Yannick Velázquez Work Phone: Start: 01-02-2023 Doppler ultrasonogra phy of bilateral carotid arteries DO Yannick Velázquez Work Phone: Start: 01-02-2023 Ultrasonography of abdomen DO Yannick Velázquez Work Phone: Start: 08-28-2022 XR pre/post mri xray DO Yannick Velázquez Work Phone: Start: 08-28-2022 MR lumbar spine wo con DO Yannick Velázquez Work Phone: Start: 01-28-2022 X-ray of right foot SITE AUDITOR -C Shara He Work Phone: Start: 09-06-2020 Urnls dip stick/tabl et rgnt auto w/o microscopy David Quiñonez Work Phone: Plan of Treatment Date Care Activity Detail Author Start: 03-07-2020 Influenza vaccination INFLUENZA (#1) [facility] Start: 2016 Screening for malignant neoplasm of colon [facility] Start: 2016 SHINGRIX VACCINE (1 of 2) SHINGRIX VACCINE (1 of 2) [facility] Start: 10-11-2011 DIABETES SCREEN DIABETES SCREEN [facility] Start: 10-11-2011 LIPID SCREEN LIPID SCREEN [facility] Start: 2006 Mammography MAMMOGRAM [facility] Start: 1996 HPV TESTING HPV TESTING [facility] Start: 10-11-1987 PAP TESTING PAP TESTING [facility] Start: 1985 Urine microalbumin profile DTAP,TDAP,TD (1 - Tdap) [facility] Start: 1984 HEPATITIS C SCREENING HEPATITIS C SCREENING [facility] Start: 1984 HIV SCREENING HIV SCREENING [facility] Start: 1978 Adult depression screening assessment DEPRESSION SCREENING [facility] Patient Education Radiculopathy (DC) [facility] Work Phone: Patient referral [facility] Work Phone: Immunizations Immunization Date Immunization Notes Care Provider Sindy sorensen 12-19-2016 tetanus toxoid, reduced diphtheria toxoid, and acellular pertussis vaccine, adsorbed Yannick Velázquez Other [employer] Other NEGATED: Highlighted row has not occurred!06-11-2021 influenza, seasonal, injectable Patient Objection Yannick Velázquez Other [employer] Other Payers Date Payer Category Payer Self-pay [id number] 2020 Unknown 2014 Unknown 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 [id number] 2014-Present PPO [id number] 1966 Unknown [id number] 1966 Unknown [id number] 1966 Unknown [id number] 1966 Unknown [id number] 1966 Unknown [id number] 1959 Unknown [id number] Unknown [id number] Unknown [id number] Unknown [id number] Unknown [id number] Social History Date Type Detail Facility Start: 09-06-2020 End: 02-23-2023 Tobacco smoking status NHIS Never smoker [facility] Start: 09-06-2020 Tobacco use and exposure Never used [facility] Start: 09-06-2020 Alcohol intake Current drinke r of alcohol (finding) [facility] Start: 09-06-2020 [facility] Start: 1965 Sex Assigned At Female [facility] Exposure to SARS-CoV-2 (event) Not sure [facility] Sex Assigned At Sex Assigned At [place] [facility] [place] [employer] Other Clinical Notes 06-11-2021 to 06-17-2023 Note Date & Type Note Facility 06-17-2023 Evaluation note Encounter Date Diagnosis Assessment Notes Jun, Lumbar degenerative disc disease (ICD-10 - M51.36) The EMG of the lower extremities appears to be radicular in nature. It appears structural and appears to be coming from her back. She voices that she is having an upper extremity EMG done and then will see the neurologist next week. She voices that when she hangs upside down on her inversion table she can feel her vertebrae move and her symptoms will move from day to day. When she has twitching she will hang upside down and then this can make it better, but it all depends on the day. The ball of her right foot is numb but she thinks she may have a neuroma. Jun, Restless leg syndrome (ICD-10 - G25.81) She voices that she was diagnosed with RLS at age 31. She was started on Iron by Dr. Hoover for RLS and she is taking this daily. Jun, Low ferritin level (ICD-10 - R79.0) She voices that she ate a Whopper prior to having the ferritin level drawn and now wonders if her test result (44) was accurate. She was started on Iron daily. Jun, Vitamin B12 deficiency (ICD-10 - E53.8) Continue with above medication as directed. Jun, Anxiety (ICD-10 - F41.9) She read that Zoloft can contribute to RLS so in the summer time (2023) she would like to discuss weaning off the Zoloft. She voices that she can get the Zoloft compounded into 5 MG tablets at a pharmacy in [place] to help her wean off the medication. She is under alot of anxiety and is now taking the full tablet of Zoloft (25 MG) daily. She does continue to use and benefit from the Xanax when needed which is normally only when she needs help sleeping. An OARRS report was printed and reviewed, no discrepancies noted. Frequent appointments needed due to addiction potential of medication. Pain inventory sheet completed and reviewed if opiod medication given. Pain contract is on file if pertinent. Patient will have office visits every three months for evaluation or sooner if needed. I discussed addiction potential of medication with the patient. Discussed with the patient and provided a treatment plan including the use of non-opiod analgesics and non-pharmacolog ical intervention with patient if treated for pain. We have discussed realistic benefits and known risks of opiod/controlle d therapy and the expected benefits for both pain and function. These benefits outweigh the risks. Patient has been counselled on the dangers of combining opiods/controll ed prescriptions with alcohol or other sedatives and counseled on the safe storage and disposal of opiods/controll ed prescriptions. Do not drive or operate heavy machinery after taking opiod/controlle d medication. I have verified that no current substance abuse treatments are being prescribed. Jun, Foot pain, right (ICD-10 - M79.671) She voices that she is seeing a edge worker on 06-19-23 and has an MRI of the right foot. She thinks she may have a neuroma of the right foot because she has a ball on the bottom of her right foot. Jun, Other 10:05 AM - 10:17 AM [employer] Other 11-21-2023 Note Yannick Velázquez DO [address], [place] [address] Re: Edna Sultana Date of Visit: 05/27/2023 Dear Yannick Velázquez DO, Let me know if you have any questions or concerns. Sincerely, MARTIN Moreno MD Providers: The following document(s) were included in the letter: May 27, 2023 11:20:24 EST - (05/27/2023) Neurosurgery Office Visit Note [facility]11-16-2023 Evaluation note* Encounter Date Diagnosis Assessment Notes Treatment Notes Treatment Clinical Notes May, Anxiety (ICD-10 - F41.9) When she gets home from work she is restless, does not know what to do with herself. 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 She did increase her Zoloft to 1 tablet per day but this has not helped to control her anxiety. An OARRS report was printed and reviewed, no discrepancies noted. Frequent appointments needed due to addiction potential of medication. Pain inventory sheet completed and reviewed if opiod medication given. Pain contract is on file if pertinent. Patient will have office visits every three months for evaluation or sooner if needed. I discussed addiction potential of medication with the patient. Discussed with the patient and provided a treatment plan including the use of non-opiod analgesics and non-pharmacological intervention with patient if treated for pain. We have discussed realistic benefits and known risks of opiod/controlled therapy and the expected benefits for both pain and function. These benefits outweigh the risks. Patient has been counselled on the dangers of combining opiods/controlled prescriptions with alcohol or other sedatives and counseled on the safe storage and disposal of opiods/controlled prescriptions. Do not drive or operate heavy machinery after taking opiod/controlled medication. I have verified that no current substance abuse treatments are being prescribed. May, Twitching (ICD-10 - R25.3) She voices that she has a bubbling/twitchin g sensation in her legs all the time and thought it was associated with potassium. She had eaten alot of potassium last week. On Friday night she voices that this went away but when she woke up on Friday this returned. She was concerned that she had a positive Chvostek's sign. She has never seen a neurologist for evaluation. Her calcium was normal when checked in April (2022) at 8.5. She voices that she went down the rabbit hole last week with ALS but does not think she has this any longer. She does agree to see a neurologist to rule out abnormalities and I did recommend that she see Dr. Hoover. May, Vitamin B12 deficiency (ICD-10 - E53.8) She did stop her B12 injections after her level was checked and it was elevated. I am going to order a B12 level to see where her level is at. May, Hypokalemia (ICD-10 - E87.6) She had a low potassium level in early April (2022) but she did eat potassium rich foods and had this rechecked and it was back to normal. I will repeat lab at this time to see where her potassium level is at. May, Numbness (ICD-10 - R20.0) Her right foot is numb. We discussed that even anxiety can cause extremities to be numb. She voices that she feels like she has a rubber ball in her shoe. She is not stumbling or falling over anything. She is not tripping over anything. May, Neuropathy (ICD-10 - G62.9) She voices that she has had burning in her feet for seven years, she has even sprayed her feet with water because they burn. May, Dyspnea on effort (ICD-10 - R06.09) She becomes winded from climbing her basement stairs. May, Lumbar pain (ICD-10 - M54.50) She has an appointment for her back next week for a second opinion with a specialist in [place]. She has pressure in her low back and feels as if there is something going on in her low back. May, Tremor (ICD-10 - R25.1) She voices that both of her hands have been shaking. May, Hypocalcemia (ICD-10 - E83.51) I am going to order lab work to rule out any issue with her parathyroid. May, Other intermediate (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 therapy (ICD-10 - Z79.899) May, Weight gain (ICD-10 - R63.5) She has gained six pounds since March (2022). May, Other She has an appointment with Avery her homeopathic doctor who always tells her that her Cortisol level is a mess . [employer] Other 10-24-2023 Evaluation note* Encounter Date Diagnosis Assessment Notes Treatment Notes Treatment Clinical Notes Apr, Anxiety (ICD-10 - F41.9) [facility] Other 2023 Evaluation note* Encounter Date Diagnosis Assessment Notes Treatment Notes Treatment Clinical Notes Apr, Other terminal clerk (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 therapy (ICD-10 - Z79.899) Apr, Vitamin B12 deficiency (ICD-10 - E53.8) Apr, Muscle cramp (ICD-10 - R25.2) Apr, Paresthesia (ICD-10 - R20.2) Apr, Vitamin D deficiency (ICD-10 - E55.9) Apr, Fatigue (ICD-10 - R53.83) [facility] Other 2023 Evaluation note* Encounter Date Diagnosis Assessment Notes Treatment Notes Treatment Clinical Notes Apr, Vitamin B12 deficiency (ICD-10 - E53.8) Apr, Hypokalemia (ICD-10 - E87.6) [facility] Other 09-27-2023 Evaluation note* Encounter Date Diagnosis Assessment Notes Treatment Notes Treatment Clinical Notes Mar, Anxiety (ICD-10 - F41.9) [facility] Other 09-13-2023 Evaluation note* Encounter Date Diagnosis Assessment Notes Treatment Notes Treatment Clinical Notes Mar, Lumbar pain (ICD-10 - M54.50) [facility] Other 09-13-2023 Evaluation note* Encounter Date Diagnosis Assessment Notes Treatment Notes Treatment Clinical Notes Mar, Anxiety (ICD-10 - F41.9) An OARRS report was reviewed, no discrepancies noted. She does continue to use and benefit from the Xanax. Frequent appointments needed due to addiction potential of medication. I will see her back in three months. Side effects/risks/benefi ts of medication were reviewed. She continues to take 12.5 MG of Zoloft daily and it is working well for her so she will continue with this. Mar, Lumbar pain (ICD-10 - M54.50) She has not been to see her physical therapist since she had her x-ray done. She is going to be seeing Dr. Martinez this afternoon. She voices that her back feels good right now, she has been off the steroids for more than a week. She will see what Dr. Martinez says today. She will ask Dr. Martinez about using her inversion table when she is seen today. She believes she may have flared her back after bending over working in her garden for too long, she then stood up and went for a walk in the [place] and thinks this was too much. She usually uses a stool to work in the garden but did not. Mar, Other 8:58 AM - 9:08 AM She has a haze in her left eye, voices that she has a posterior vitreous detachment. She feels it may be starting in her right eye as well. She saw Dr. Colmenares for evaluation. She has floaters in her eye, she was told these would settle down and eventually sink to the bottom of her visual field. She has to return on June 01, 2023 for evaluation. I did advise her that because of this she may not want to use an inversion table. [employer] Other 08-09-2023 Evaluation note* Encounter Date Diagnosis Assessment Notes Treatment Notes Treatment Clinical Notes Feb, Lumbar pain (ICD-10 - M54.50) [facility] Other 08-02-2023 Evaluation note* Encounter Date Diagnosis Assessment Notes Treatment Notes Treatment Clinical Notes Feb, Lumbar pain (ICD-10 - M54.50) [facility] Other 07-18-2023 Evaluation note* Encounter Date Diagnosis Assessment Notes Treatment Notes Treatment Clinical Notes Jan, Left lumbar pain (ICD-10 - M54.50) Discussed diagnosis with patient. Urine dipstick negative today for concern of UTI, no culture sent. Toradol and Kenalog injection given today in office. Advised patient to take medications as directed. Use muscle relaxer at night time as it may cause drowsiness. May use OTC Tylenol and icy hot application for additional relief. Encouraged warm compresses, light stretches, and massage may also help with pain. Avoid strenuous activity, perform activity as tolerated, do not stay stationary for long periods of time as it might make symptoms worse. Follow up with PCP in 1 week if symptoms do not improve. Immediate eval for chest pain, shortness of breath, fever, numbness or tingling, loss of bowel or bladder control, pain becomes severe, difficulty moving neck, back, arms or legs, dizziness, headache, or any other new or concerning symptoms arise. Patient verbalizes understanding and is agreeable to treatment plan. [employer] Other 07-05-2023 Evaluation note* Encounter Date Diagnosis Assessment Notes Treatment Notes Treatment Clinical Notes Jan, Thyroid nodule (ICD-10 - E04.1) [facility] Other 06-30-2023 Evaluation note* Encounter Date Diagnosis Assessment Notes Treatment Notes Treatment Clinical Notes Dec, Thyroid nodule (ICD-10 - E04.1) [facility] Other 06-16-2023 Evaluation note* Encounter Date Diagnosis Assessment Notes Treatment Notes Treatment Clinical Notes Dec, Carotid bruit (ICD-10 - R09.89) Turbulance was heard on exam today. She has never been a smoker or around second hand smoke. I did recommend she have a carotid doppler done and she agrees. An order is provided. Dec, Soft tissue mass (ICD-10 - M79.89) Dec, Breast cancer screening (ICD-10 - Z12.31) She had a thermogram done in the spring of (2022). I did recommend that she have a mammogram done. She is in agreement and an order is provided. She voices that last night she felt a pea size lump in the left breast but she could not feel this again after the first time she felt it. She did not find it today. If she finds this prior to her mammogram then she should ashish it. She did have a mammogram done last year ordered by Dr. Hi, will try to obtain a copy of this report. Dec, Anxiety (ICD-10 - F41.9) She voices that the Zoloft is working well for her. She continues to take 1/2 dose (12.5 MG) daily and feels this dose is adequate. She does continue to have the Xanax on hand incase needed. Frequent appointments needed due to addiction potential of medication. I will see her back in three months. Side effects/risks/benef its of medication were reviewed. Dec, Vitamin B12 deficiency (ICD-10 - E53.8) Continue with above medication as directed. Dec, Restless leg syndrome (ICD-10 - G25.81) Continue with above medication daily as directed. Dec, Other She has a soft fatty spot that she can only feel when she is on her inversion table. She believes this is a lipoma. No family history that she knows of. Denies pain. After evaluation she is told that this is likely a lipoma but I would like to order an ultrasound to rule out abnormalities. She can call for results. She had a gene testing done and was tested for BRCA and she voices that everything was negative. She voices that at times she gets a deep itch in the upper left side of her chest and arm. She was getting burning in her left hand so she went to PT and it did help this. She still gets the feeling in the chest so she was going to do [facility] Scre[facility] done when it comes to her town. [facility] Other 03-13-2023 Evaluation note* Encounter Date Diagnosis Assessment Notes Treatment Notes Treatment Clinical Notes Sep, Anxiety (ICD-10 - F41.9) [facility] Other 03-13-2023 Evaluation note* Encounter Date Diagnosis Assessment Notes Treatment Notes Treatment Clinical Notes Sep, Anxiety (ICD-10 - F41.9) An OARRS report was printed and reviewed, no discrepancies noted. Frequent appointments needed due to addiction potential of medication. Pain inventory sheet completed and reviewed if opiod medication given. Pain contract is on file if pertinent. Patient will have office visits every three months for evaluation or sooner if needed. I discussed addiction potential of medication with the patient. Discussed with the patient and provided a treatment plan including the use of non-opiod analgesics and non-pharmacological intervention with patient if treated for pain. We have discussed realistic benefits and known risks of opiod/controlled therapy and the expected benefits for both pain and function. These benefits outweigh the risks. Patient has been counselled on the dangers of combining opiods/controlled prescriptions with alcohol or other sedatives and counseled on the safe storage and disposal of opiods/controlled prescriptions. Do not drive or operate heavy machinery after taking opiod/controlled medication. I have verified that no current substance abuse treatments are being prescribed. Sep, Lumbar pain (ICD-10 - M54.50) She has an appointment to see Dr. Martinez for evaluation. Sep, Nausea (ICD-10 - R11.0) Since Friday09-13-22 she started drinking a lot of lattes with half and half and her stomach has been upset. She feels nauseated and then it goes away. She describes her stomach as a sour stomach . She may be constipated, voices that she knows when she is constipated. If this continues she should use something to clean herself out. No one else in the home is sick. She did stop drinking the lattes after Friday. Sep, Other 1:28 PM - 1:37 PM She started doing the carnivore diet but only lasted for five days then started to cheat and was eating fruit with it. She voices that she became tired of eating fruit, eggs and meat. She did try to restart the carnivore diet today but her stomach hurts so she is not sure she can continue with it today. She saw a uro/director of maintenance who referred her to physical therapy for pelvic floor therapy. They are going to see if Dr. Martinez feels her issue may be coming from her back. [employer] Other 02-23-2023 Evaluation note* Encounter Date Diagnosis Assessment Notes Treatment Notes Treatment Clinical Notes Aug, Lumbar degenerative disc disease (ICD-10 - M51.36) [facility] Other 02-01-2023 Evaluation note* Encounter Date Diagnosis Assessment Notes Treatment Notes Treatment Clinical Notes Aug, Spinal stenosis (ICD-10 - M48.00) Aug, DDD (degenerative disc disease), lumbar (ICD-10 - M51.36) Aug, Lumbar pain (ICD-10 - M54.50) [facility] Other 01-13-2023 Evaluation note* Encounter Date Diagnosis Assessment Notes Treatment Notes Treatment Clinical Notes Jul, Lumbar pain (ICD-10 - M54.50) She did begin using her inversion table last night and voices that her back feels better today. She did see her physical therapist since we last spoke (07-03-22) and within three hours of taking the Medrol Dose Darwin she felt relief. She does not have any radicular symptoms. She did see a surgeon in [place] and he told her that she was not severe enough for surgery. She does have scoliosis which contributes to her back pain. If she stands in one spot the pain is worse. She can sit in a chair but not for a long period of time. Sitting is worse when her back is flared up. She is going to continue with her inversion table. She has tried Medrol and Ibuprofen and failed both. She does need to return to see her physical therapist again, if he feels she has failed with therapy then we will order an MRI and a referral to see Dr. Martinez. She is in agreement to this plan. I did recommend that she use the inversion table three times a day, but if unable to do it three times then at least two times. She saw Dr. Bolaños for decreased sensation of her fourth and fifth toes bilaterally and he did not feel this was from her back. She had gotten new shoes and felt she had some nerve damage in her feet. She does not have any other symptoms between her low back and feet. I did advise her that she does have chronic S1 radiculopathy which could affect her toes. Jul, Restless leg syndrome (ICD-10 - G25.81) She takes Magnesium and 200 MG of Potassium per day to help her restless leg. Jul, Vitamin B12 deficiency (ICD-10 - E53.8) She is taking a B12 injection (not in this rx system) Methylcobalamin as directed. Jul, Tachycardia (ICD-10 - R00.0) She does monitor her heart rate, she has seen it go as high as 130 but is going to continue to monitor this. I am going to check her Aldosterone level. Jul, Urinary frequency (ICD-10 - R35.0) Where her disc problems are can contribute to her urinary frequency. Jul, Weight loss (ICD-10 - R63.4) Jul, Skin abnormality (ICD-10 - L98.9) She noticed that the skin over both her eyes is turning orange in color. She has never noticed it turn flaky. She asked her purchase request editor who told her she didn't know what it was. She does not have any bumps associated with this and has not been eating alot of keratin. Her liver enzymes were normal in Mar (2021) and her bilirubin was also normal. I am also unsure what this is. She would like her Aldosterone level checked. An order was provided. She can call for results. Jul, Family history of ovarian cancer (ICD-10 - Z80.41) She will see her director of maintenance next week to discuss a hysterectomy. She would like to have a CA-125 test done. Her grandmother had ovarian cancer. She voices that she would request a total hysterectomy if she is going to have a hysterectomy. Jul, Other terminal clerk (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 therapy (ICD-10 - Z79.899) Jul, Other Sometimes if sh e is running and stops she will get pain in both her adrenal glands that is so painful it will cause her to double over in pain. This has only happened a few times. She does feel this when she bends backwards on exam today. [facility] Other 12-28-2022 Evaluation note* Encounter Date Diagnosis Assessment Notes Treatment Notes Treatment Clinical Notes Jun, Lumbar pain (ICD-10 - M54.50) Jun, Lumbar degenerative disc disease (ICD-10 - M51.36) She is not having any radicular symptoms and no urinary tract symptoms. She feels that this is may be related to constipation and would like an order sent to [facility] for an x-ray to see how much stool is present. She is going to see Marty Pugh her physical therapist in [place] next week and hopefully this will help. She has responded well in the past to Medrol Dosepak and would like to have this available to take if desired. side effects/risks/benef its of medication reviewed. Jun, Constipation (ICD-10 - K59.00) Jun, Other 09:15 AM - 09:22 AM [facility] Other 12-19-2022 Evaluation note* Encounter Date Diagnosis Assessment Notes Treatment Notes Treatment Clinical Notes Jun, Anxiety (ICD-10 - F41.9) She is taking 1/2 tablet of Zoloft daily and feels the medicine is helping. She returned to taking it about six weeks ago. An OARRS report was reviewed no discrepancies noted. She does continue to use and benefit from the Xanax. She does not need a refill today. She will need to be seen again in three months. Side effects/risks/benefi ts of medication were reviewed. Jun, Other I am going to provide her with a Z darwin to have on hand incase she develops any signs of an illness. Her daughter is ill and one of her sons is sick. She is concerned that she may develop a sickness as well. If she wants to take the medication she can. Guidance is given on how to take the medication. 2:50 PM - 2:58 PM [facility] Other 11-03-2022 Evaluation note* Encounter Date Diagnosis Assessment Notes Treatment Notes Treatment Clinical Notes May, Cystitis (ICD-10 - N30.90) [facility] Other 10-05-2022 Evaluation note* Encounter Date Diagnosis Assessment Notes Treatment Notes Treatment Clinical Notes Apr, Conjunctivitis (ICD-10 - H10.9) right eye She voices that her eye is better now then it was when she woke up this morning. Her eye was matted shut this morning. She has red splotches on the white of her eye that look like blood vessels. Will treat with above drops. Guidance is given on how to use the drops. She should use good handwashing to prevent spreading germs. She should throw her contacts away and start with fresh ones after five days. Apr, Acute sinusitis (ICD-10 - J01.90) I did advise her that she is likely fighting a viral infection and an antibiotic is not indicated. I did offer a respiratory panel to see exactly what she is fighting but she declines. She is to call if she begins to have dark green or brown colored drainage. She is comfortable with this and will keep me posted. Apr, Other 9:06 AM - 9:16 AM She voices that the medial part of her left knee aches and hurts badly. She wonders if this is because she is fighting a viral infection. She is told that this is possible, if she continues to ache and has pains she should consider being tested for COVID-19 or Influenza. She questions her neutrophil count and was told it was 2.2 and it would be concerning if it was 0.5 or below. Even though her lab was drawn one month ago she was likely fighting something viral a month ago. [facility] Other 09-20-2022 Evaluation note* Encounter Date Diagnosis Assessment Notes Treatment Notes Treatment Clinical Notes Mar, Anxiety (ICD-10 - F41.9) An OARRS report was reviewed no discrepancies noted. Frequent appointments needed due to addiction potential of medication. She voices that she went off the Zoloft and has had little to no anxiety. She feels good at this time. She does take the Xanax to help her sleep if needed. If she has not slept for three nights in a row she will take the Xanax. She does continue to use and benefit from the Xanax and would like to have it on hand. She will need to be seen again in three months. Side effects/risks/benefi ts of medication were reviewed. Mar, Weight loss (ICD-10 - R63.4) She voices that she has lost seven pounds since last seen. Her TSH is 2.033. Mar, Paresthesia (ICD-10 - R20.2) She voices that she is having some tingling in her feet since she started Medrol dose darwin and they feel hot which is worse at night. We discussed the side effects of steroids today. She feels that this issue has gotten better since last week overall. She voices that she has had this before when she had an issue with her B12 and once she started the injections this was better but the steroid did make it much worse. I recommend she wait two weeks and if the symptoms persist past that she voices that she will return to see the neurosurgeon in [place] for her back. Mar, Other She voices that she had lab drawn through her employer to include cholesterol, she will provide the office with a copy of her results. 8:26 AM - 8:40 AM [facility] Other 08-12-2022 Evaluation note* Encounter Date Diagnosis Assessment Notes Treatment Notes Treatment Clinical Notes Feb, Anxiety (ICD-10 - F41.9) [facility] Other 07-25-2022 Evaluation note* Encounter Date Diagnosis Assessment Notes Treatment Notes Treatment Clinical Notes Jan, Injury of right foot, initial encounter (ICD-10 - S99.921A) Use RICE therapy as discussed: Rest, Ice Compression, Elevate. Apply ice to affected area 3-4 times daily (Do not place ice source directly on skin, must cover with towel-like material). Use OTC as directed for pain if needed. Contact office if symptoms are not improved within the next few days and we will help you get into specialist. [facility] Other 07-08-2022 NotePROCEDURE: XR KNEE LT 4V or > HISTORY: Pain of left knee joint , swelling COMPARISON: None. FINDINGS: BONES:No fracture, acute abnormality, or significant arthropathy. SOFT TISSUES:Mild soft tissue thickening anterior to the patella. EFFUSION:Small joint effusion. OTHER: Negative. IMPRESSION: 1. Small joint effusion, and likely mild prepatellar bursitis. 2. No acute bone abnormality or significant degenerative joint disease. Electronically authenticated by: JENNIFER NICOLAS Date: 2022-01-11 12:09[facility]07-08-2022 Evaluation note* Encounter Date Diagnosis Assessment Notes Treatment Notes Treatment Clinical Notes Jan, Knee pain, left (ICD-10 - M25.562) [facility] Other 07-06-2022 Evaluation note* Encounter Date Diagnosis Assessment Notes Treatment Notes Treatment Clinical Notes Jan, Tick bite (ICD-10 - W57.XXXA) right shoulder She voices that she still has a couple of days left of the antibiotic. She is to finish this as directed. Jan, Allergic rhinitis (ICD-10 - J30.9) She has tried Zyrtec (she thinks) and Flonase nasal spray without relief. After evaluation she is told that her exam has more of an allergic appearance. I want her to be sure she is taking Zyrtec (plain) and if needed she can increase to taking this twice a day and if needed three times a day. I want her to see if this takes care of her symptoms. Continue with the nasal spray daily. Jan, Cough (ICD-10 - R05.9) She voices that she has a cough, she wakes up with a sinus headache once in awhile. She recently got three new kittens and feels she may be allergic to them. She feels drainage down the back of her throat. She does not feel any acid reflux. Today her cough feels better but she has not been around the kittens at all. One night a couple weeks ago she had to get up during the night because of the coughing. Lung sounds are clear on exam today. Jan, Knee pain, left (ICD-10 - M25.562) She voices that she has a hard knot in her left knee that is painful for her when she touches it. She cannot put weight on her knee. Running does not bother her. It only bothers her when she kneels on her knee while gardening. Her knee was bothering her prior to when she started running at the beginning of December (2021). It does not hurt to walk down the stairs. She has had pain for 8 months or longer. I will provide her with an order to have an x-ray done. She can call for results. She is running on an indoor track and not outdoors. She voices that she is running because Dr. Hi did a DEXA scan and wanted her to take medication but she refused so she began running and then lifts weights after. I explained to her that running places alot of stress on the tendon. She can do the Elliptical. If needed she can see ortho and/or go to PT. Jan, Weight gain (ICD-10 - R63.5) She voices that she has gained weight since last seen but she is running for exercise and is not winded when she runs. [facility] Other 06-07-2022 Evaluation note* Encounter Date Diagnosis Assessment Notes Treatment Notes Treatment Clinical Notes Dec, Anxiety (ICD-10 - F41.9) [facility] Other 06-07-2022 Evaluation note* Encounter Date Diagnosis Assessment Notes Treatment Notes Treatment Clinical Notes Dec, Anxiety (ICD-10 - F41.9) An OARRS report was reviewed no discrepancies noted. Frequent appointments needed due to addiction potential of medication. She cut her Zoloft dose in half and is taking 12.5 MG per day and is doing well. She voices that she felt numb on the full tablet (25 MG), people were talking about and she felt nothing so she decided to cut the tablet in half. She is feeling pretty good. She still only uses the Xanax if she has not slept for several nights. She is to continue with this. She would like a refill today. I will see her back in three months. Side effects/risks/benefi ts of medication were reviewed. Dec, Other intermediate (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 therapy (ICD-10 - Z79.899) I did provide her with an order to have lab drawn to be sure medication is not irritating her liver or kidneys. Dec, Weight gain (ICD-10 - R63.5) Dec, Other 11:35 AM - 11:4 7 AM She does have her cholesterol and glucose level checked through her employer and will provide the office with a copy of this once it is done. [facility] Other 03-07-2022 Evaluation note* Encounter Date Diagnosis Assessment Notes Treatment Notes Treatment Clinical Notes Sep, Anxiety (ICD-10 - F41.9) She voices that she is doing well on the Zoloft, and she voices that it is a good place to be for her but she does not cry, she feels numb but does not feel too numb and does not want to come off the medication. She voices that her son may say he is going to join the , and she will instantly feel like she is going to vomit and wonder how she would be if she wasn't on the medication. She does find that she is craving carbs which can be caused by the Zoloft. She is going to try to be more aware of watching her intake of carbs. She is going to begin running for exercise. If she does want to come off the Zoloft she should let me know but right now she does not want to do this, if she were to do this it would be in the summer. An OARRS report was reviewed no discrepancies noted. Side effects/risks/benefit s of medication were reviewed. She does continue to use and benefit from the Xanax. Sep, Weight gain (ICD-10 - R63.5) She is frusturated by her weight gain, she voices that she is the heaviest she has been since she was . We discussed that she was on steroids and was given a steroid injection both of which can contribute to weight gain. Looking back when on Zoloft over time she was not gaining significant weight. She voices that her metabolism has slowed down so this could be contributing to her weight gain. She is going to begin running again to help lose weight. She asked her physical therapist if she could run and he told her yes. She will begin with a half mile for a week then a mile for a week then work her way up to three miles and will give herself rest days. Her youngest daughter is doing cross country so she will do this with her. She only plans on doing this a few days a week. Sep, Vitamin B12 deficiency (ICD-10 - E53.8) She continues to use B12 injections weekly. She is considering seeing a pharmacist from [facility] to discuss a different version of Cyanocobalamin that does not contain cyanide, I did advise her that if she does this they can send us a prescription request to sign. Sep, Other She voices that her hair is falling out from having had COVID-19 but it seems to be slowing down. [facility] Other 12-06-2021 Evaluation note* Encounter Date Diagnosis Assessment Notes Treatment Notes Treatment Clinical Notes Jun, Anxiety (ICD-10 - F41.9) She does continue to use and benefit from the Xanax and would like to still have this available if needed. An OARRS report was reviewed no discrepancies noted. Frequent appointments needed due to addiction potential of medication. Side effects/risks/benefi ts of medication were reviewed. I will see her back in three months. Jun, Flank pain (ICD-10 - R10.9) She had a dull ache on the right side, but felt that it was due to constipation. She had pain between her shoulder blades but that seemed to resolve. She did a gallbladder cleanse once and it went away. She is drinking alot of water and began drinking Carlin artichoke and feels her symptoms resolved. She does not feel that anything further needs done for the flank pain. She will continue to monitor. Now that she is exercising this should help to keep the stool moving. I will provide her with an order to have an x-ray done if this persists, she can call if she has this done for the results. Jun, Insomnia (ICD-10 - G47.00) She began working out three days a week and voices that this seemed to help her insomnia. She does use Melatonin also. She is to continue with what she is doing. [facility] Other Evaluation noteNo InformationNort [employer] Other Evaluation noteNo assessment information available [facility] Work Phone: [facility] general Narrative - Reported* Type Description Date Medical History 02-14; Dr. Hi Medical History 02-14; Mammogram Medical History Colonoscopy; Dr. Iker garcia (due to blood in stool) 2002 Medical History No history of CT of the Abdomen and Pelvis Medical History History of Chicken Pox Medical History History of Panic Attacks Medical History History of Lichen Planus Medical History History of Spinal St enosis and Herniated Disc L4-L5 ; Dr. Cazares Surgical History 2005 Surgical History bilateral tailor bunionectiomy Surgical History Tonsicllectomy Surgical History tubaligation Surgical History laparascopy to check for adhesi ons from Surgical History Cystoscopy and urethral dilatio n Tiffany Zepeda 02-17-2020 Hospitalization History childbirth 2003 200 6 Hospitalization History see above [facility] Other [facility] general Narrative - Reported* Type Description Date Medical History 02-14; Dr. Hi Medical History 02-14; Mammogram Medical History Colonoscopy; Dr. Iker garcia (due to blood in stool) 2002 Medical History No history of CT of the Abdomen and Pelvis Medical History History of Chicken Pox Medical History History of Panic Attacks Medical History History of Lichen Planus Medical History History of Spinal St enosis and Herniated Disc L4-L5 ; Dr. Cazares Surgical History 2005 Surgical History bilateral tailor bunionectiomy Surgical History Tonsicllectomy Surgical History tubaligation Surgical History laparascopy to check for adhesi ons from Surgical History Cystoscopy and urethral dilatio devaughn Zepeda 02-17-2020 Surgical History Colonoscopy, Dr. Dunn, needs repeat in 2027 2017 Hospitalization History childbirth 2003 200 6 Hospitalization History see above [facility] Other History general Narrative - Reported* Type Description Date Medical History 02-14; Dr. Hi Medical History 02-14; Mammogram Medical History Colonoscopy; Dr. Iker garcia (due to blood in stool) 2002 Medical History No history of CT of the Abdomen and Pelvis Medical History History of Chicken Pox Medical History History of Panic Attacks Medical History History of Lichen Planus Medical History History of Spinal St enosis and Herniated Disc L4-L5 ; Dr. Cazares Medical History anemia Medical History anxiety Surgical History 2006 Surgical History bilateral tailor bunionectiomy Surgical History Tonsicllectomy Surgical History tubaligation Surgical History laparascopy to check for adhesi ons from Surgical History Cystoscopy and urethral dilatio n - Dr. Zepeda 02-17-2020 Surgical History Colonoscopy, Dr. Dunn, needs repeat in 2027 2017 Hospitalization History childbirth 2003 200 6 Hospitalization History see above [facility] Other History general Narrative - Reported* Type Description Date Medical History 02-14; Dr. Hi Medical History 02-14; Mammogram Medical History Colonoscopy; Dr. Iker garcia (due to blood in stool) 2002 Medical History No history of CT of the Abdomen and Pelvis Medical History History of Chicken Pox Medical History History of Panic Attacks Medical History History of Lichen Planus Medical History History of Spinal St enosis and Herniated Disc L4-L5 ; Dr. Cazares Medical History anemia Medical History anxiety Medical History posterior vitreous detachment in the left eye Surgical History 2006 Surgical History bilateral tailor bunionectiomy Surgical History Tonsicllectomy Surgical History tubaligation Surgical History laparascopy to check for adhesi ons from Surgical History Cystoscopy and urethral dilatio devaughn Zepeda 02-17-2020 Surgical History Colonoscopy, Dr. Dunn, needs repeat in 2027 2017 Hospitalization History childbirth 2003 200 6 Hospitalization History see above [employer] Other reason for visit Narrativecontinued back pain, discuss multiple issues, see treatment [facility] [employer] Other Summary Purpose Family History Relationship Condition Age at Onset Recorded Date/T jacinta father Multiple myeloma Unknown grandparent Malignant neoplasm of prostate Unknown grandparent Malignant neoplasm of ovary Unknown grandparent Malignant neoplasm of urinary bladder Unk nown grandparent Pernicious anemia Unknown Advance Directives Advance Directive Response Recorded Date/ Time Advance Directives No March 8:56am Advance Directive Response Recorded Date/ Time Advance Directives No March 7:56am History of Present Illness * David Quiñonez Fan - 09/06/2020 2:00 PM EST [facility] RECONSTRUCTIVE SURGERY PATIENT HISTORY AND PHYSICAL EXAM PATIENT INFO: Edna Sultana is a 54 year old female. REFERRING M.D.: Yannick Velázquez, DO [address] [place] [id number] Consultation requested by [facility] for an opinion regarding Ms Sultana, and my final recommendationswill be communicated back to the requesting provider by way of shared Medical record, fax or lettervia US mail. HISTORY CHIEF COMPLAINT: uti/urgency HPI : Edna Sultana is a 54 year old female had uti a year ago - freq/urgency. took abxs but urgency continued. had cysto/dilation. no change. tried a few meds. found to have strep infection and much improved after 21 days abx. still gets twinges when goes to the bathroom. has never felt the same since uti year ago. ? if may have Lyme disease. voiding - q 2-3/hrs, nocturia 1-3. no dysuria sense of vag bulge. no blood in urine QUESTIONNAIRE: Questionnaire: [facility] Female Pel[facility] Base Question Answer What is the main problem that you are seeing us for today? UTI in September 2019 - problems ever since.Suffered with UTI for over 6 months before doing a urine DNA test and discovering it was a strep infection. Urgency and what feels like urethral irritation comes and goes - much worse when bowels notmoving. Bladder prolapsing. Questioning if anything else is prolapsing? Possibly have Lyme disease and wondering if that can cause these symptoms. How long has this been going on? September 2019 Do you have any leakage with coughing, sneezing, laughing? Yes Do you have the sudden, uncontrollable urge to urinate? No Do you have any leakage when you get the urge to urinate? No Do you wear pads for urinary protection? No How many times do you urinate during the day? 8? How many times do you get up at night to urinate? 2-3 Do you feel like you have to push to get urine out? No When you leave the bathroom, do you feel like your bladder is empty? Yes How many urinary tract/bladder infections (UTIs) have you had in the last 12 months? 4 Have you done pelvic floor or kegel exercises in the past? Yes Please select if you have taken any of the medicatons listed below for overractive bladder. tolterodine / Detrol Have you had a Sacral Neuromodulation (also called Interstim) device placed? No Have you ever undergone PTNS (Posterior Tibila Nerve Stimulation)? No How many cups of total fluid do you drink per day? 14-16 How many cups of caffeinated beverages do you drink per day? 2 Are you sexually active? Yes Does it hurt when you have sex? Yes Have you had any pregnancies? Yes If yes, how many? How many Vaginal births? How many C-sections? 1 vaginal; 1 Have you gone through menopause? Yes Have you had a hysterectomy? No Have you had any post-menopausal bleeding? No Have you ever had a gynecologic or urologic surgery? Yes If yes, what? release of adhesions Do you have a sense of a vaginal bulge or something hanging from your vagina? Yes Have you ever had blood in your urine? Yes Have you ever had bladder / kidney stones? No Do you have any bowel problems? Yes If yes, please select all that apply below. Constipation Do you have any new weakness, balance or coordination problems? No Do you have a history of any diagnosed back problems? Yes If yes, please describe. Spinal Stenosis; Disc Herniations at L4-5 and L5-S1. Already saw neurosurgeon to determine if current issues are related to this and he says no. Do you have a history of any diagnosed neurological problems? Yes If yes, please describe. Not really a firm diagonsis. Developed twitches all over body - almost like a quick jerk - which started summer 2018. A natural medicine person I see used electrodermal screening and identified Lyme and several co-infections. Tried a 21 day course of doxycycline and twitching stopped - but then after being off for 2 weeks it came back but not nearly as frequent or intense. ANGELA and Western Blot both negative but still suspect Lyme. Have you recently had any significant weight loss and /or fever? No Have you recently had any blurred vision? No Do you have Sjogren s syndrome? No Do you have any new skin lesions and/or rashes? Yes Do you have a cough and/or shortness of breath? No Do you have any chest pain today? No Have you ever had a heart attack or any heart problems? No Do you have high blood pressure, also called hypertension? No Are you taking a blood thinner? No Do you have any thyroid problems? No Do you have diabetes? No Do you have any numbness, tingling, and/or tremors? No Do you have any joint pain and/or swelling? No Do you have any back and/or muscle pain? Yes Do you bleed and/or bruise easily? Yes Do you have a history of blood transfusion (getting another person s blood)? Yes Do you have a history of depression, anxiety and/or mental illness? Yes Urinary Distress Inventory (MAURILIO 6) Do you experience the following questions? If so how much are you bothered by it. Frequent urination? Moderately Urine leakage related to the feeling of urgency? A littel bit Urine leakage related to physical activity, coughing/sneezing? A little bit Small amounts of urine leakage (that is drops)? A little bit Difficulty emptying your bladder? Not at all Pain or discomfort in the lower abdominal or genital area? A little bit Questionnaire: Myc Promis 10 Adult Short Form V1.0 Global Health Question Answer In the past 7 days In general, would you say your health is: Very good In general, would you say your quality of life is: Very good In general, how would you rate your physical health? Very good In general, how would you rate your mental health, including your mood and your ability to think? Very good In general, how would you rate your satisfaction with your social activities and relationships? Very good In general, please rate how well you carry out your usual social activities and roles. (This includes activities at home, at work and in your community, and responsibilities as a parent, child, spouse, employee, friend, etc.) Excellent To what extent are you able to carry out your everyday physical activities such as walking, climbing stairs, carrying groceries, or moving a chair? Completely In the past 7 days How often have you been bothered by emotional problems such as feeling anxious, depressed or irritable? Often How would you rate your fatigue on average? Mild How would you rate your pain on average? 4 PROMIS Adult Short Form-Global Health Score (Physical) 50.8 PROMIS Adult Short Form-Global Health Score (Mental) 48.3 HISTORIES: PAST MEDICAL HISTORY Diagnosis Date Vitamin B12 deficiency PAST SURGICAL HISTORY Procedure Laterality Date BUNIONECTOMY, LAPIDUS-TYPE SECTION HX F PER LYSIS ADHES TONSILLECTOMY AND ADENOIDECTOMY HX No family history on file. Social History Tobacco Use Smoking status: Never Smoker Smokeless tobacco: Never Used Substance Use Topics Alcohol use: Yes Alcohol/week: 1.0 standard drinks Types: 1 Glasses of Wine (5oz) per week Drug use: Never The patient's family history is not related to the condition for which the patient is being seen MEDICATIONS: Current Outpatient Medications Medication Sig sertraline (ZOLOFT) 25 mg tablet Take 25 mg by mouth. cyanocobalamin 1,000 mcg/mL No current facility-administered medications for this visit. ALLERGIES: Adhesive Tape-Silicones PHYSICAL EXAM: VITAL SIGNS: Ht 180.3 cm (5' 11 ) Wt 70.8 kg (156 lb) BMI 21.76 kg/m GENERAL: Well appearing, alert, in no acute distress, well-hydrated, well nourished. RESP: NL effort, no retractions or purse-lip breathing. CV: No extremity swelling, varices, edema, pallor, or erythema ABDOMEN: Soft, nontender, nondistended, no masses. HERNIAS: None SKIN/LYMPH: No rash, lesions NEURO/PSYCH: No signs of depression, anxiety, or agitation EXTREMITIES: Extremities normal. No deformities, edema, clubbing or skin discoloration. GENITOURINARY: External genitalia: nl. Hair distribution, no lesions Urethra without mass, tenderness, scarring. Bladder non-palpable without masses/tenderness. Vaginal appearance normal without discharge. Estrogen normal limit No adnexal mass, tenderness, nodules No tenderness to palpation Anus and perineum grossly nl. Uterus & Cervix: Did not see Cystocele:Stage II Rectocele:none POP-Q: Ba 0 CYSTOMETRICS: no PVR: 0 mL via bladder US UA: Normal IMPRESSION & PLAN: hx of uti with occasional twinges for last year cystocele all else fine recommended OTC txs for twinges/discomfort - uricalm, etc fu prn Electronically signed STAFF NOTE: I have personally modified the HPI & ROS, performed a PE & a face to face diagnostic evaluation on this patient & discussed the above plan. Signed: David Quiñonez MD [facility] Electronically signed Medical Decision Making documented in this encounter Assessments Diagnosis Dysuria Cystocele with prolapse Nocturia Chief Complaint and Reason for Visit Chief Complaint S99.921A Chief Complaint m48.00 m51.35 m54.50 Chief Complaint bruit, m79.89 Chief Complaint bruit, m79.89 back pain both feet numb Chief Complaint bruit, m79.89 back pain both feet numb g89.29 m51.36 Reason for Referral Reason appt pt needs cons ult to discuss twitching, numbness right foot, neuropathy Diagnosis 1 Twitching (R25.3) Referral Organization [facility] Family Medicin e Yessi Referring Provider First Name Yannick Referring Provider Last Name Gisel Referring Provider Specialty Family Prac loretta Referred Organization [facility] Referred Provider Nathen Hoover Referred Address [address] [place], [place],[address] Referred Provider Specialty Neurology Referral Priority Routine General Notes Victorina Cassidy 05/22/2023 12:19:06 PM > GIANA referral form faxed with visit note, med list, demographics, MRI and xray lumbar spine reports, labs and copy of insurance card. pt understands she will be contacted to schedule this appt. Reason appt consult for e lynn and treatment of b/l thyroid nodules Diagnosis 1 Thyroid nodule (E04. 1) Referral Organization [facility] Family Medicin e Yessi Referring Provider First Name Yannick Referring Provider Last Name Gisel Referring Provider Specialty Family Prac loretta Referred Organization [facility] Referred Provider Christin White Referred Address ,[place], [place],[address] Referred Provider Specialty Ear, Nose an d Throat Referral Priority Routine General Notes Victorina Cassidy 01/03/2023 09:35:50 AM > referral hard faxed with TE message, visit note, last TSH, carotid duplex report and demographics sheet. pt understands she will be contacted to schedule this appt. Reason appt 09/18/22 at 8:20 am consult to eval and treatment of Lumbar DDD/review MRI lumbar spine Diagnosis 1 Lumbar degenerative disc disease (M51.36) Referral Organization [facility] Medic[facility]to Dickson Referring Provider First Name Yannick Referring Provider Last Name Gisel Referring Provider Specialty Family Prac loretta Referred Organization [facility] Referred Provider Victorina Martinez Referred Address [address] [address] ,[place], [place],[address] Referred Provider Specialty Neurological Surgery Referral Priority Routine Referral Appointment Date 2022-09-18 General Notes Victorina Cassidy 08/29/2022 01:50:55 PM > referral sent p2p. pt understands she will be contacted to schedule this appt. Victorina Cassidy 08/30/2022 10:55:52 AM > appt scheduled on 09/18/22 at 8:20am Additional Source Comments INFORMATION SOURCE (unrecogn ized section and content) DATE CREATED AUTHOR 11/17/2019 [facility] DATE CREATED AUTHOR AUTHOR'S ORGANIZ ATION 07/02/2020 [facility] DATE CREATED AUTHOR AUTHOR'S ORGANIZ ATION 09/07/2020 [facility] DATE CREATED AUTHOR AUTHOR'S ORGANIZ ATION 07/06/2022 [facility] DATE CREATED AUTHOR AUTHOR'S ORGANIZ ATION 03/08/2023 [facility] DATE CREATED AUTHOR AUTHOR'S ORGANIZ ATION 05/29/2023 [facility] Source Comments (unrecognize d section and content) In the event this informatio n is protected by the Federal Confidentiality of Alcohol and Drug Abuse Patient Records regulations: The Federal rules restrict any use of the information to criminally investigate or prosecute any alcohol or drug abuse patient.[facility] Reason for Visit (unrecogniz ed section and content) med refill Reason Comments Consult bladder prolapse, tw daron, uncomfortable, pressure with constipation Stephanie Perrin MA - 09/06/2020 1:40 PM EST Nursing Notes (unrecognized section and content) PVR 0 documented in this encounter Care Teams (unrecognized sec tion and content) Team Status: Active Member Role Status Austin Velázquez , DO Primary Care Provider Active Team Status: Inactive Member Role Status Austin Velázquez , DO Primary Care Provider, Attending Pro vider Active Team Status: Inactive Member Role Status Dates SELAM Mahoney Attending Provider Active PHYSICIAN NO FAMILY Primary Care Provider Active Team Status: Active Member Role Status Dates PHYSICIAN NO FAMILY Primary Care Provider Active Team Status: Inactive Member Role Status Austin Velázquez , DO Primary Care Provider Active Pelon Blandon APRN Emergency Provider Active Team Status: Inactive Member Role Status Austin Velázquez , DO Primary Care Provider Active Victorina Martinez MD Attending Provider Active Goals (unrecognized section and content) Goals may be documented in a n alternate section FOR RECORDS PERTAINING TO PATIENTS WHO ARE OR HAVE BEEN ENROLLED IN A CHEMICAL DEPENDENCY/SUBSTANCEABUSE PROGRAM, SOME INFORMATION MAY BE OMITTED. This clinical summary was aggregated from multiple sources. Caution should be exercised in using it in the provision of clinical care. This summary normalizes information from multiple sources, and as a consequence, information in this document may materially change the coding, format and clinical context of patient data. In addition, data may be omitted in some cases. CLINICAL DECISIONS SHOULD BE BASED ON THE PRIMARY CLINICAL RECORDS. [employer] [facility]. provides no warranty or guarantee of the accuracy or completeness of information in this document.
== END 2023-07-14 06:57 | disposition home or self-care (01) ==
LOC: US 06:56
PROVIDERS: PCP Family Medicine; Visit Provider Otolaryngology
DX: E04.1 Nontoxic single thyroid nodule (principal); E04.2 Nontoxic multinodular goiter
CPT/HCPCS: 76536

== ENCOUNTER 2023-10-25 06:27 | Emergency (ER) | payer OTHER, SELFPAY ==
--- OUTSIDE RECORDS SUMMARY | 2023-10-25 06:31 | XMS_ITS | CCD ---
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 Role Phone Yannick Velázquez Primary Care Provider Yannick Velázquez Unavailable [phone] Yannick Velázquez Unavailable Shara Cutler Unavailable SELAM Cutler Attending Provider [phone] NO FAMILY, PHYSICIAN Primary Care Provider Unava [...] Tonia Sandoval Unavailable SHER Blandon Emergency Provider MD Victorina Martinez Attending Provider [phone] Yannick Velázquez Primary Care Unavailable Victorina Martinez Admitting Unavailable Victorina Martinez Attending Unavailable Yannick Velázquez Admitting Unavailable Yannick Velázquez Primary Care Unavailable Yannick Velázquez Attending Unavailable Yannick Velázquez Primary Care Unavailable Yannick Velázquez Attending Unavailable Yannick Velázquez Admitting Unavailable Gisel, Yannick Primary Care Unavailable Pelon Blandon Admitting Unavailable Pelon Blandon Attending Unavailable Yannick Velázquez DO Primary Care Unavailab Farrukh Reinoso III, MD Attending U REZA Doss Attending Unavailable Yannick Velázquez DO Primary Care Provider YANNICK VELÁZQUEZ Referring Unavailable YANNICK VELÁZQUEZ Primary Care Unavailable ABIODUN CASTANO Attending Unavailable YANNICK VELÁZQUEZ Primary Care Unavailable Yannick Velázquez DO Primary Care Provider Yannick Velázquez DO Unavailable [phone] Allergies Allergy Classification Reported Allergen(s) Allergy Type Date of Onset Reaction(s) Facility (3 sources) Adhesive Tape-Silicones; Translations: [ADHESIVE TAPE-SILICONES] Drug Allergy 09-07-19 21 Rash, Hives [facility] (20 sources) Nitrofurantoin; Translations: [Macrobid] Drug Allergy diarrhea / 2020 [facility] Repository (20 sources) steri-strips Propensity to adverse reactions rash [email or web address] Other (1 source) Adhesive bandage Drug allergy (disorder) 12-17-19 19 [facility] Repository (20 sources) NITROFURANTOIN, MACROCRYSTALS / Nitrofurantoin, Monohydrate Drug Allergy diarrhea [email or web address] Other (1 source) steri stips; Translations: [steri stips] Propensity to adverse reactions (disorder) [facility] Repository (1 source) Adhesive Tape Allergy to substance 09-17-19 24 rash [facility] (1 source) Nitrofurantoin Drug Allergy 09-17-19 24 diarrhea [facility] (2 sources) Adhesive agent; Translations: [ADHESIVE] Propensity to adverse reactions to drug 07-02-20 18 Itching, Rash [facility] Medications Current Medications Medication Drug Class(es) Dates Sig (Normalized) Sig (Original) ALPRAZolam 0.25 mg oral tablet (20 sources) Benzodiazepine Start: 09-17-2023 Alprazolam (Xanax) 0.25 mg tablet Active 0.25 MG PO September 17, 2023 12:00am FreeText[facility]/2 to 1 tablet Orally q8-12 hrs prn; Note: Source Status: Continue; Provider: Gisel Tran Start: 02-27-2017 Xanax 0.25 MG 1/2 to 1 tablet Orally q8-12 hrs prn Feb, Active take 0.5 tablet by m outh three times daily as needed ALPRAZolam (XANAX) 0.25 mg tablet Take 0.5 tablets (0.125 mg total) by mouth Three times daily as needed. 0 Active amoxicillin 875 mg oral tablet (4 [...] INJECTION Active cholecalciferol 0.025 mg chewable tablet (7 sources) Vitamin D Start: 11-09-2019 take 1 tablet by mouth once daily Cholecalciferol (Vitamin D3) (Vitamin D3) 25 mcg (1,000 unit) Tablet,Chewable Active 1000 UNIT PO Daily November 09, 2019 12:00am take 1 tablet by mouth in the mo rning cholecalciferol 1,000 units tablet Take 1 tablet (1,000 Units total) by mouth in the morning. 0 Active ciprofloxacin 500 mg oral tablet (2 sources) Quinolone Antimicrobial Start: 03-01-2020 take 1 tablet by mouth every twelve hours Cipro 500 MG 1 tablet Orally bid for 5 days Feb, Active estradiol 0.1 mg/ml vaginal cream (1 source) Estrogen Start: 09-30-2023 estradioL (ESTRACE) 0.01 % (0.1 mg/gram) vaginal cream Indications: Vaginal atrophy Insert 0.5 g into the vagina 2 (two) times a week. 42.5 g 0 09/30/2023 Active ferrous sulfate 325 mg oral tablet (2 sources) Start: 09-17-2023 take 1 tablet by mouth once daily Ferrous Sulfate Active 325 MG PO Daily September 17, 2023 12:00am [employer] tablet Orally qd; Note: Source Status: Continue; Provider: Michelet Rick take 1 tablet by erika th every twenty-four hours Ferrous Sulfate 325 (65 Fe) MG 1 tablet Orally qd Active fluticasone propionate 0.05 mg/actuat metered dose nasal spray (13 sources) Corticosteroid Start: 08-06-2021 take 2 spray(s) nasal route once daily Fluticasone Propionate 50 MCG/ACT 2 sprays each nostril Nasally Once a day Jul, Active Folate (20 sources) Folate Not-Takin g Folate Active magnesium oxide 400 mg oral tablet (2 sources) Start: 09-17-2023 Magnesium Oxide Active 400 MG PO As Directed September 17, 2023 12:00am FreeTextSig: as directed Orally; Note: Source Status: Taking; Provider: Gisel Lanier ( ) NON FORMULARY (1 source) NON FORMULARY Vitamin B 12 INJECTIONS 0 Active microencapsulated potassium chloride 10 meq extended release oral tablet (1 source) take 1 tablet by mouth in the morning potassium chloride (K-TAB,KLOR-CON) 10 MEQ CR tablet Take 1 tablet (10 mEq total) by mouth in the morning and 1 tablet (10 mEq total) before bedtime. 0 Active Selenium (3 sources) Selenium Active sertraline 25 mg oral tablet (20 sources) Serotonin Reuptake Inhibitor Start: 08-02-2020 End: 09-17-2023 take 1 tablet by mouth once daily Sertraline (Zoloft) 25 mg tablet Active 12.5 MG PO Daily September 17, 2023 3:35pm [employer]Text[employer] tablet Orally Once a day; Note: Source Status: Continue; Provider: Gisel Tran Start: 06-15-2019 End: 11-09-2019 take 1 tablet by mouth once daily Sertraline (Zoloft) 25 mg Tablet Discontinued 25 MG PO Daily June 15, 2019 1:00am November 09, 2019 1:09pm take 0.5 tablet by m outh in the morning sertraline (ZOLOFT) 25 mg tablet Take 0.5 tablets (12.5 mg total) by mouth in the morning. 0 Active Comment on above: Take 25 mg by mouth. Syringe 25G X 5/8 3 ML (2 sources) Syringe 25G X 5/ 8 3 ML as directed with B12 injection Active Completed/Discontinued Medications Medication Drug Class(es) Dates Sig (Normalized) Sig (Original) acetaminophen 325 mg / oxyCODONE hydrochloride 5 mg oral tablet (3 sources) Opioid Agonist Start: 02-23-2023 End: 09-17-2023 take 1 tablet by mouth every four hours Oxycodone-Acetaminop hen Discontinued 1 TAB PO Q4H February 23, 2023 12:00am September 17, 2023 3:35pm azithromycin 250 mg oral tablet (6 sources) [...] a day for 7 days Jan, Not-Taking ferrous fumarate/ascorbic acid (WILLIAM-SEQUELS, IRON-VIT C, ORAL) (1 source) ferrous fumarate/ascorbic acid (WILLIAM-SEQUELS, IRON-VIT C, ORAL) Take by mouth once daily. 0 Active Comment on above: Take by mouth once d aily. folic acid 0.8 mg / intrinsic factor 20 mg / vitamin b12 0.5 mg oral tablet (6 sources) Vitamin B12 Start: 11-09-2019 End: 09-17-2023 take 1 tablet by mouth once daily Vit [id number] Fact-Fa Cmb #2 (Intrinsi [id number]) 500-20-800 mcg-mg-mcg Tablet Discontinued 1 TAB PO Daily November 09, 2019 12:00am September 17, 2023 3:36pm Magnesium (20 sources) Start: 11-09-2019 End: 09-17-2023 take 1 tablet by mouth once daily Magnesium Discontinued 1 TAB PO Daily November 09, 2019 12:00am September 17, 2023 3:34pm Start: 11-09-2019 take 1 tablet by erika th once daily Magnesium Active 1 TAB PO Daily November 08, 2019 11:00pm Start: 11-09-2019 take 1 tablet by erika th once daily Magnesium Active 1 TAB PO Daily November 09, 2019 12:00am MAGNESIUM ORAL T kailey by mouth once daily. 0 Active Magnesium 400 MG as directed Orally Active Comment on above: Take by mouth once d aily. methocarbamol 750 mg oral tablet (15 sources) Muscle Relaxant Start: 02-16-20 take 1 tablet by mouth twice daily [...] as directed Orally for 6 days Not-Taking predniSONE 10 mg oral tablet (3 sources) Start: 02-23-2023 End: 09-17-2023 take 60 mg by mouth once daily, then take 40 mg by mouth once daily, then take 20 mg by mouth once daily, then take 10 mg by mouth once daily Prednisone Discontinued 10 MG PO Daily February 23, 2023 12:00am September 17, 2023 3:35pm 60mg daily for three days, 40mg daily for three days, 20mg daily for three days, 10mg daily for three days. tobramycin 3 mg/ml ophthalmic solution (9 sources) Aminoglycoside Antibacterial Start: 04-10-2022 take 2 drop(s) into the eye(s) four times daily Tobramycin 0.3 % 2 drops Ophthalmic in right eye four times a day for 5 days Apr, Not-Taking Toradol 30 mg/ml (20 sources) Start: 01-21-2023 Toradol 30 mg/ml Jan, 30 mg traMADol hydrochloride 50 mg oral tablet (18 sources) Opioid Agonist Start: 02-15-2023 End: 09-17-2023 take 50 mg by mouth twice daily Tramadol Discontinued 50 MG PO Twice daily February 23, 2023 12:00am September 17, 2023 3:36pm triamcinolone acetonide 40 mg/ml injectable suspension (20 sources) Corticosteroid Start: 01-21-2023 Kenalog-40 Jan, 40 mg vitamin b12 1 mg/ml injectable solution (20 sources) Vitamin B12 Start: 09-04-2020 cyanocobalamin 1,000 mcg/mL Start: 11-09-2019 inject 1000 ug by in tramuscular injection every 30 days Cyanocobalamin (Vitamin B-12) Active 1000 MCG IM Q30D November 09, 2019 12:00am Cyanocobalamin 1 000 MCG/ML INJECT 1 ML ONCE A WEEK Active Problems Active Problems Problem Classification Problem Date Documented Date Episodic/Chronic Calculus of urinary tract (20 sources) Kidney stone; Translations: [Calculus of kidney] Onset: 08-03-19 Episodic Cardiac dysrhythmias (1 source) Tachycardia, unspecified Episodi c Deficiency and other anemia (6 sources) Nutritional anemia; Translations: [Vitamin B12 deficiency anemia, unspecified] 07-06-2019 Episodic Diseases of white blood cells (20 sources) Leukopenia; Translations: [Decreased white blood cell count, unspecified] Chronic Fluid and electrolyte disorders (2 sources) Hypokalemia Episodic Inflammation; infection of eye (except that caused by tuberculosis or sexually transmitteddisease) (20 sources) Keratoconjunctivitis sicca, not specified as Sjogren's; Translations: [Keratoconjunctivitis sicca, not specified as Sjogren's, bilateral] Chronic Inflammation; infection of eye (except that caused by tuberculosis or sexually transmitteddisease) (1 source) Unspecified conjunctivitis Episodic Malaise and fatigue (1 source) Other fatigue Episodic Menopausal disorders (4 sources) Postmenopausal bleeding; Translations: [Postmenopausal bleeding] Onset: 09-30-1909-30-2023 Chronic Menstrual disorders (20 sources) Amenorrhea; Translations: [Amenorrhea, unspecified] Chronic Mood disorders (20 sources) Depressive disorder; Translations: [Major depressive disorder, single episode, unspecified] Chronic Nausea and vomiting (1 source) Nausea Episodic Nutritional deficiencies (20 sources) Vitamin D deficiency; Translations: [Vitamin D deficiency, unspecified] Chronic Nutritional deficiencies (20 sources) Deficiency of other specified B group vitamins; Translations: [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] Onset: 09-11-19 Resolved : 09-11-19 Episodic Other aftercare (8 sources) Other 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 termite (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 therapy; Translations: [OTH SENIOR CARE CURRENT DRUG THERAPY] Onset: 12-12-19 Resolved : [...] disorders (20 sources) Constipation; Translations: [Constipation, unspecified] 09-17-2023 Episodic Other gastrointestinal disorders (3 sources) Constipation, unspecified; Translations: [Constipation, unspecified] Onset: 07-06-20 Episodic Other hereditary and degenerative nervous system conditions (20 sources) Restless legs; Translations: [Restless legs syndrome] Chronic Other hereditary and degenerative nervous system conditions (3 sources) Restless legs syndrome Chronic Other lower respiratory disease (1 source) Other forms of dyspnea Episodic Other nervous system disorders (6 sources) Peripheral nerve disease ; Translations: [Polyneuropathy, [...] : 01-10-20 Chronic Other upper respiratory infections (3 sources) Acute sinusitis, unspecified; Translations: [Laryngitis] Episodic Prolapse of female genital organs (20 sources) Cystocele; Translations: [Midline cystocele] Onset: 09-07-19 Resolved : 09-30-1909-06-2020 Chronic Residual codes; unclassified (20 sources) Insomnia; Translations: [Insomnia, unspecified] Episodic Residual codes; unclassified (1 source) Family history of malignant neoplasm of ovary Episodic Spondylosis; intervertebral disc disorders; other back problems (20 sources) Degeneration of intervertebral disc; Translations: [Other intervertebral disc degeneration, lumbar region] Chronic Spondylosis; intervertebral disc disorders; other back problems (4 sources) Spinal stenosis, site unspecified; Translations: [Nerve root disorder] Episodic Thyroid disorders (20 sources) Thyroid nodule; Translations: [Nontoxic single thyroid nodule] Onset: 01-10-20 Chronic Unclassified (1 source) LOW BACK PAIN, UNSPECIFIED; Translations: [LOW BACK PAIN, UNSPECIFIED] Onset: 08-03-19 Unclassified (1 source) Low back pain, unspecified; Translations: [Low back pain, unspecified] Onset: 08-28-19 Urinary tract infections (1 source) Cystitis, unspecified without hematuria Episodic Past or Other Problems Problem Classification Problem Date Documented Da te Episodic/Chronic Abdominal pain (5 sources) Unspecified abdominal pain; Translations: [UNSPECIFIED ABDOMINAL PAIN] Onset: 06-11-2021 Resolved: 06-11-2021 Episodic Anxiety disorders (20 sources) Anxiety; Translations: [Anxiety disorder, unspecified] Onset: 06-11-2021 Resolved: 09-30-2023 Chronic E Codes: Natural/environment (1 source) Bitten or stung by nonvenomous insect and other nonvenomous arthropods, initial encounter Onset: 01-09-2022 Resolved: 01-09-2022 Episodic Genitourinary symptoms and ill-defined conditions (11 sources) Dysuria; Translations: [Nocturia] Onset: 09-06-2020 09-06-2020 Episodic Other injuries and conditions due to external causes (1 source) Unspecified injury of right foot, initial encounter Onset: 01-28-2022 Resolved: 01-28-2022 Episodic Other non-traumatic joint disorders (6 sources) Pain in left knee; Translations: [PAIN IN LEFT KNEE] Onset: 01-09-2022 Resolved: 01-11-2022 Episodic Other non-traumatic joint disorders (1 source) Effusion, left knee; Translations: [EFFUSION LEFT KNEE] Onset: 01-15-2022 Episodic Residual codes; unclassified (1 source) Insomnia, unspecified Onset: 06-11-2021 Resolved: 06-11-2021 Episodic Unclassified (1 source) Cough R05.9 Onset: 01-09-2022 Resolved: 01-09-2022 Unclassified (10 sources) Lumbar pain M54.50 Results Test Name Value Interpretation Reference Range Facility Neurosurgery Office/Clinic Pasquale iverson 05-27-2023 Neurosurgery Office/Clinic Note Chief Complaint Back follow up-MRI @ [facility] 03/29 Physical Exam Vitals & Measurements HR: [...] attempted healthier diet from her previously standard [place] diet and noted significant improvement in sense [...] prompted her to visit a neurosurgeon at [facility]. An MRI was ordered and no surgical [...] as A (more content not included)... Normal [facility] MR lumbar spine wo conon MR lumbar spine wo con [facility] Main [place] [address] [place], [place] [id number] MRI Report Signed Patient: Edna Sultana MR#: [id number] : 1965 Acct:[id number] Age/Sex: 57 / F ADM Date: 02/27/23 Loc: MR Room: Type: [facility] Attending Dr: Victorina Martinez MD Copies to: [...] Ashish Alvares M.D.02/27/2023 12:35 PM Dictation Location: [place] [address] Transcribed By: [facility] 02/27/23 1235 Dictated By: Ashish Alvares II, MD 02/27/23 1227 Signed By: 02/27/23 1235 [facility] Urinalysis - AUTOMATEDon Appearance (U) clear [facility] Other Bilirubin Ql (U) Negative [employer] Other Color (U) light yellow [facility] [facility] [email or web address] Other Glucose Ql (U) Negative [facility] Other Hemoglobin Ql (U) trace-intact [employer] [email or web address] Other Ketones Ql (U) Negative [facility] Other Leukocyte esterase Test strip Ql (U) Negative [employer] [facility] [email or web address] Other Nitrite Ql (U) Negative [facility] Other pH (U) 7.5 [pH] [facility] [email or web address] Other Protein Ql (U) Negative [facility] Other Specific gravity (U) [Rel density] 1.015 [facility] [email or web address] Other Urobilinogen (U) [Mass/Vol] 0.2 mg/dL [facility] [email or web address] Other Urinalysis - AUTOMATED [facility] [email or web address] Other US abdomen limited 023 US abdomen limited [facility] [place] [address] Ultrasound Report Signed Patient: Edna Sultana MR#: [id number] : 1965 Acct:[id number] Age/Sex: 57 / F ADM Date: 01/02/23 Loc: Room: Type: [facility] Attending Dr: Yannick Velázquez DO Ordering Provider: [...] SUGGESTED.. Impression dictated by: Pranay Thomson Jr., D.O.01/02/2023 11:07 AM Dictation Location: [place] [address] Tech: Nuha Fisher Transcribed By: RODERICK 01/02/231106 Dictated By: Pranay Thomson Jr, DO 01/02/231104 Signed By: 01/02/231106 Normal [facility] US carotid doppler BIon 12-06 US carotid doppler BI [facility] [place] [address] [place] [address] Ultrasound Report Signed Patient: Edna Sultana MR#: [id number] : 1965 Acct:[id number] Age/Sex: 57 / F ADM Date: 01/02/23 Loc: Room: Type: [facility] Attending Dr: Yannick Velázquez DO Ordering Provider: [...] Lukas Schultz M.D.01/02/2023 4:33 PM Dictation Location: [place] [address] Tech: Nuha Phillip Transcribed By: RODERICK 01/02/23 1633 Dictated By: Lukas Schultz MD 01/02/23 1632 Signed By: 01/02/23 1633 [facility] MR lumbar spine wo conon MR lumbar spine wo [facility] [place] [address] XRay Report Signed Patient: Edna Sultana MR#: [id number] : 1965 Acct:[id number] Age/Sex: 56 / F ADM Date: 08/28/22 Loc: MR Room: Type: [facility] Attending Dr: Yannick Velázquez DO Copies to: Yannick Velázquez DO Ordering Provider: Yannick Velázquez DO Date of Service: 08/28/22 MR/MR lumbar spine wo con: M54.50 M48.0 M51.35 ([id number]) XR/XR pre/post mri xray: PRE MRI OF [...] Poppy Ashley M.D.08/28/2022 8:35 PM Dictation Location: [place] [address] Transcribed By: [facility] 08/28/222034 Dictated By: Poppy Ashley MD 08/28/222016 Signed By: 08/28/222034 [facility] MR lumbar spine wo con [facility] [place] Other MR lumbar spine wo con [facility] [email or web address] Other MR lumbar spine wo con [address] [facility] [email or web address] Other [place] [address] [employer] [facility] [email or web address] Other MR lumbar spine wo con XRay Report [facility] [email or web address] Other MR lumbar spine wo con Signed [facility] [email or web address] Other MR lumbar spine wo con Patient: Edna Sultana MR#: [id number] [facility] [email or web address] Other MR lumbar spine wo con 8539 [facility] [email or web address] Other MR lumbar spine wo con : 1965 Acct:[id number] [facility] [email or web address] Other MR lumbar spine wo con Age/Sex: 56 / F ADM Date: 08/28/22 [facility] [email or web address] Other MR lumbar spine wo con Loc: MR Room: Type: [facility] [email or web address] Other MR lumbar spine wo con Attending Dr: Yannick Velázquez DO [facility] [email or web address] Other MR lumbar spine wo con Copies to: Yannick Velázquez DO [facility] [email or web address] Other MR lumbar spine wo con Ordering Provider: Yannick Velázquez DO [facility] [email or web address] Other MR lumbar spine wo con Date of Service: 08/28/22 [facility] [email or web address] Other MR lumbar spine wo con MR/MR lumbar spine wo con: M54.50 M48.0 M51.35 [facility] [email or web address] Other MR lumbar spine wo con ([id number]) XR/XR pre/post mri xray: PRE MRI OF THE LUMBAR [facility] [email or web address] Other MR lumbar spine wo con CLINICAL DATA: Chronic back pain with bilateral toe numbness. No injury. [facility] [email or web address] Other MR lumbar spine wo con PRE-MRI LUMBAR SPINE - 2 views [facility] [email or web address] Other MR lumbar spine wo con COMPARISON: 05/11/2020 [facility] [email or web address] Other MR lumbar spine wo con Standing AP and lateral views were obtained. 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 [facility] [email or web address] Other MR lumbar spine wo con There are no developing fractures. There is still slight retrolisthesis of L2 on L3, L3 on L4 and [facility] [email or web address] Other MR lumbar spine wo con L4 and L5. There is mild disc space narrowing and anterior endplate sclerosis at L2-3. There is [facility] [email or web address] Other MR lumbar spine wo con also some disc space narrowing at L3-4. Mild endplate spurring is seen. There is mid and lower [facility] [email or web address] Other MR lumbar spine wo con lumbar facet hypertrophy. The SI joints are intact. No paraspinal soft tissue abnormalities are [facility] [email or web address] Other MR lumbar spine wo con present. [facility] [email or web address] Other MR lumbar spine wo con XR/XR pre/post mri xray [facility] [email or web address] Other MR lumbar spine wo con IMPRESSION: [facility] [email or web address] Other MR lumbar spine wo con SCOLIOSIS AND DEGENERATIVE CHANGES, SIMILAR TO THE PRIOR. [facility] [email or web address] Other MR lumbar spine wo con MRI LUMBAR SPINE WITHOUT CONTRAST [facility] [email or web address] Other MR lumbar spine wo con Multiecho imaging in the axial and sagittal plane was performed without contrast. [facility] [email or web address] Other MR lumbar spine wo con There is levoscoliotic curvature. There is minimal retrolisthesis of L2 on L3, L3 on L4 and L4 and [facility] [email or web address] Other MR lumbar spine wo con L5. There are no acute compression fractures or marrow edema. There are degenerative endplate [facility] [email or web address] Other MR lumbar spine wo con signal changes, predominantly at L2-3 anteriorly. The conus medullaris terminates at T12-L1. The [facility] [email or web address] Other MR lumbar spine wo con lower imaged cord shows no significant findings. 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 No paraspinal soft tissue abnormalities are noted. [facility] [email or web address] Other MR lumbar spine wo con At T12-L1, there is no disc disease or stenosis. [facility] [email or web address] Other MR lumbar spine wo con At L1-2, there is slight disco-osteophytic bulging with mild thecal sac effacement. There is [facility] [email or web address] Other MR lumbar spine wo con asymmetric facet disease on the left. There is no significant foraminal stenosis. [facility] [email or web address] Other MR lumbar spine wo con At L2-3, there is prominent narrowing of the disc space. Disco-osteophytic bulging is noted. There [facility] [email or web address] Other MR lumbar spine wo con is increased signal at the annulus that may be a tear. There is bilateral facet hypertrophy with [facility] [email or web address] Other MR lumbar spine wo con joint effusion on the left. There is slight thickening of ligamentum flavum. There is continued [facility] [email or web address] Other MR lumbar spine wo con moderate thecal sac effacement. There is mild inferior foraminal encroachment. [facility] [email or web address] Other MR lumbar spine wo con At L3-4, there is narrowing of the disc space. Disco-osteophytic bulging is present. There is [facility] [email or web address] Other MR lumbar spine wo con bilateral facet disease and mild thickening of ligamentum flavum. There is mild to moderate thecal [facility] [email or web address] Other MR lumbar spine wo con sac effacement. There is mild to moderate right and moderate left foraminal impingement. [facility] [email or web address] Other MR lumbar spine wo con At L4-5, there is slight loss of disc height. Annular disc bulging is noted, slightly asymmetric [facility] [email or web address] Other MR lumbar spine wo con from the right parasagittal region extending laterally. There is increased signal at the annulus [facility] [email or web address] Other MR lumbar spine wo con that could be tear. There is bilateral facet hypertrophy and thickening of ligamentum flavum, [facility] [email or web address] Other MR lumbar spine wo con asymmetric on the left. Moderate central stenosis is again seen. There is moderate narrowing of [facility] [email or web address] Other MR lumbar spine wo con the neural foramen bilaterally. [facility] [email or web address] Other MR lumbar spine wo con At the lumbosacral junction, mild annular disc bulging is visualized. There is increased signal at [employer] [facility] [email or web address] Other MR lumbar spine wo con the annulus that could be tear. There is bilateral facet disease, greater on the left. There is [email or web address] Other MR lumbar spine wo con subtle thecal sac effacement. There is moderate neural foraminal narrowing, greater on the left. [email or web address] Other MR lumbar spine wo con LEVOSCOLIOSIS. [email or web address] Other MR lumbar spine wo con MULTILEVEL DISCOVERTEBRAL DEGENERATIVE CHANGES WITH ASSOCIATED CENTRAL AND FORAMINAL STENOSIS, [email or web address] Other MR lumbar spine wo con DESCRIBED. SIMILAR FINDINGS WERE PRESENT AT THE TIME OF THE COMPARISON. [email or web address] Other MR lumbar spine wo con Impression dictated by: Poppy Ashley M.D.08/28/2022 8:35 PM [email or web address] Other MR lumbar spine wo con Dictation Location: [place] [address] [email or web address] Other MR lumbar spine wo con Transcribed By: PWS 08/28/222034 [email or web address] Other MR lumbar spine wo con Dictated By: Poppy Ashley MD 08/28/222016 [email or web address] Other MR lumbar spine wo con Signed By: [email or web address] Other MR lumbar spine wo con 08/28/222034 [email or web address] Other XR ABD FLAT_UPon 07-04-2022 XR ABD FLAT_UP EXAMINATION: XR ABD FLAT_UP HISTORY: Slow transit constipation COMPARISON: No relevant comparison available. FINDINGS: BOWEL GAS PATTERN: Non-obstructed. FREE AIR: None. CALCIFICATIONS: None significant. 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 IMPRESSION: Nonobstructive bowel gas pattern with normal amount of stool Electronically authenticated by: YANNICK REA Date: 2022-07-04 07:30 Normal [facility] CULTURE URINEon 07-03-2022 CULTURE URINE Culture Observations: NO GROWTH. Normal [facility] Comment on above: Performed By: #### U RCX #### [facility] [address] [place] [address] Dr. Rene De Jesus UA RANDOMon 07-03-2022 Bilirubin Ql (U) Negative Normal NEGATIVE [facility] Comment on above: Performed By: #### U A #### [facility] [address] [place] [address] Dr. Rene De Jesus Clarity (U) CLEAR Normal CLEAR [facility] Comment on above: Performed By: #### U A #### [facility] [address] [place] [address] Dr. Rene De Jesus Color (U) LT. YELLOW Normal YELLOW [facility] Comment on above: Performed By: #### U A #### [facility] [address] [place] [address] Dr. Rene De Jesus Glucose Ql (U) Negative Normal NEGATIVE [facility] Comment on above: Performed By: #### U A #### [facility] [address] [place] [address] Dr. Rene De Jesus Hemoglobin Ql (U) Negative Normal NEGATIVE [facility] Comment on above: Performed By: #### U A #### [facility] [address] [place] [address] Dr. Rene De Jesus Ketones Ql (U) Negative Normal NEGATIVE [facility] Comment on above: Performed By: #### U A #### [facility] [address] [place] [address] Dr. Rene De Jesus LEUKOCYTES Negative Normal NEGATIVE [facility] Comment on above: Performed By: #### U A #### [facility] [address] [place] [address] Dr. Rene De Jesus Nitrite Ql (U) Negative Normal NEGATIVE [facility] Comment on above: Performed By: #### U A #### [facility] [address] [place] [address] Dr. Rene De Jesus pH (U) 8.0 [pH] Normal 5-9 [facility] Comment on above: Performed By: #### U A #### [facility] [address] [place] [address] Dr. Rene De Jesus SPEC GRAVITY 1.010 Normal 1.005-<=1.[address] [facility] Comment on above: Performed By: #### U A #### [facility] [address] [place] [address] Dr. Rene De Jesus UA PROTEIN Negative Normal NEGATIVE/ TRACE [facility] Comment on above: Performed By: #### U A #### [facility] [address] [place] [address] Dr. Rene De Jesus Urobilinogen Qn (U) 0.2 {Raman'U}/dL Normal 0.2 - 1. 0 [facility] Comment on above: Performed By: #### U A #### [facility] [address] [place] [address] Dr. Rene De Jesus CBC AUTO DIFFon 03-20-2022 BASO # 0.0 103/ul Normal 0.0-0.1 [facility] Comment on above: Performed By: #### C BC #### [facility] [address] [place] [address] Dr. Rene De Jesus Basophils/100 WBC (Bld) 0.8 % Normal 0.2-2.0 [facility] Comment on above: Performed By: #### C BC #### [facility] [address] [place] [address] Dr. Rene De Jesus EO # 0.1 103/ul Normal 0.0-0.7 [facility] Comment on above: Performed By: #### C BC #### [facility] [address] [place] [address] Dr. Rene De Jesus Eosinophils/100 WBC (Bld) 1.3 % Normal 0.9-7.0 [facility] Comment on above: Performed By: #### C BC #### [facility] [address] [place] [address] Dr. Rene De Jesus Erythrocyte distribution width (RBC) [Ratio] 13.1 % Normal 11.0-15.0 [facility] Comment on above: Performed By: #### C BC #### [facility] [address] [place] [address] Dr. Rene De Jesus Hematocrit (Bld) [Volume fraction] 40.9 % Normal 36.0-48.0 [facility] Comment on above: Performed By: #### C BC #### [facility] [address] [place] [address] Dr. Rene De Jesus Hemoglobin (Bld) [Mass/Vol] 13.2 g/dL Normal 12.0-16.0 [facility] Comment on above: Performed By: #### C BC #### [facility] [address] [place] [address] Dr. Rene De Jesus IG # 0.01 10e3/ul Normal 0.00-0.03 [facility] Comment on above: Performed By: #### C BC #### [facility] [address] [place] [address] Dr. Rene De Jesus IG % 0.2 % Normal 0.0-0.5 [facility] Comment on above: Performed By: #### C BC #### [facility] [address] [place] [address] Dr. Rene De Jesus LYMPH # 2.4 103/ul Normal 1.2-3.8 [facility] Comment on above: Performed By: #### C BC #### [facility] [address] [place] [address] Dr. Rene De Jesus Lymphocytes/100 WBC (Bld) 44.5 % Normal 20.5-60.0 [facility] Comment on above: Performed By: #### C BC #### [facility] [address] [place] [address] Dr. Rene De Jesus MANUAL DIFF REQ NO Normal [facility] Comment on above: Performed By: #### C BC #### [facility] [address] [place] [address] Dr. Rene De Jesus MCH (RBC) [Entitic mass] 29.2 pg Normal 26.7-34.0 [facility] Comment on above: Performed By: #### C BC #### [facility] [address] [place] [address] Dr. Rene De Jesus MCHC (RBC) [Mass/Vol] 32.3 g/dL Normal 29.9-35.2 [facility] Comment on above: Performed By: #### C BC #### [facility] [address] [place] [address] Dr. Rene De Jesus MCV (RBC) [Entitic vol] 90.5 fL Normal 81.0-99.0 [facility] Comment on above: Performed By: #### C BC #### [facility] [address] [place] [address] Dr. Rene De Jesus MONO # 0.6 103/ul Normal 0.3-0.8 [facility] Comment on above: Performed By: #### C BC #### [facility] [address] [place] [address] Dr. Rene De Jesus Monocytes/100 WBC (Bld) 12.1 % Critically high 1.7-12.0 [facility] Comment on above: Performed By: #### C BC #### [facility] [address] [place] [address] Dr. Rene De Jesus NEUT # 2.2 103/ul Normal 1.4-6.5 [facility] Comment on above: Performed By: #### C BC #### [facility] [address] [place] [address] Dr. Rene De Jesus Neutrophils/100 WBC (Bld) 41.1 % Critically low 43.0-75.0 [facility] Comment on above: Performed By: #### C BC #### [facility] [address] [place] [address] Dr. Rene De Jesus Platelet mean volume (Bld) [Entitic vol] 10.5 fL Normal 9.5-13.5 [facility] Comment on above: Performed By: #### C BC #### [facility] [address] [place] [address] Dr. Rene De Jesus PLT 263 103/ul Normal 150-450 [facility] Comment on above: Performed By: #### C BC #### [facility] [address] [place] [address] Dr. Rene De Jesus RBC 4.52 106/ul Normal 4.20-5.40 [facility] Comment on above: Performed By: #### C BC #### [facility] [address] [place] [address] Dr. Rene De Jesus WBC 5.3 103/ul Normal 4.0-11.0 [facility] Comment on above: Performed By: #### C BC #### [facility] [address] [place] [address] Dr. Rene De Jesus PROF 14(COMP METB)on 022 Albumin [Mass/Vol] 3.9 g/dL Normal 3.4-5.0 [facility] Comment on above: Performed By: #### T SH, CMP #### [facility] [address] [place] [address] Dr. Rene De Jesus Albumin/Globulin [Mass ratio] 1.2 {ratio} Normal [facility] Comment on above: Performed By: #### T SH, CMP #### [facility] [address] [place] [address] Dr. Rene De Jesus ALP [Catalytic activity/Vol] 71 U/L Normal 46-116 [facility] Comment on above: Performed By: #### T SH, CMP #### [facility] [address] [place] [address] Dr. Rene De Jesus ALT [Catalytic activity/Vol] 21 U/L Normal 14-59 [facility] Comment on above: Performed By: #### T SH, CMP #### [facility] [address] [place] [address] Dr. Rene De Jesus Anion gap [Moles/Vol] 11.3 mmol/L Normal [facility] Comment on above: Performed By: #### T SH, CMP #### [facility] [address] [place] [address] Dr. Rene De Jesus AST [Catalytic activity/Vol] 15 U/L Normal 15-37 [facility] Comment on above: Performed By: #### T SH, CMP #### [facility] [address] [place] [address] Dr. Rene De Jesus Bilirubin [Mass/Vol] 0.3 mg/dL Normal 0.2-1.0 [facility] Comment on above: Performed By: #### T SH, CMP #### [facility] [address] [place] [address] Dr. Rene De Jesus Calcium [Mass/Vol] 8.9 mg/dL Normal 8.5-10.1 [facility] Comment on above: Performed By: #### T SH, CMP #### [facility] [address] [place] [address] [address] Rene De Jesus Chloride [Moles/Vol] 102 mmol/L Normal 98-107 [facility] Comment on above: Performed By: #### T SH, CMP #### [facility] [address] [place] [address] Dr. Rene De Jesus CO2 [Moles/Vol] 30.7 mmol/L Normal 21.0-32.0 [facility] Comment on above: Performed By: #### T SH, CMP #### [facility] [address] [place] [address] Dr. Rene De Jesus Creatinine [Mass/Vol] 0.69 mg/dL Normal 0.55-1.02 [facility] Comment on above: Performed By: #### T SH, CMP #### [facility] [address] [place] [address] Dr. Rene De Jesus EGFR-AF SAUDI ARABIAN >60 Normal >=60 [facility] Comment on above: Performed By: #### T SH, CMP #### [facility] [address] [place] [address] Dr. Rene De Jesus EGFR-NON AF SAUDI ARABIAN >60 Normal >=60 [facility] Comment on above: Performed By: #### T SH, CMP #### [facility] [address] [place] [address] Dr. Rene De Jesus Globulin (S) [Mass/Vol] 3.3 g/dL Normal [facility] Comment on above: Performed By: #### T SH, CMP #### [facility] [address] [place] [address] Dr. Rene De Jesus Glucose [Mass/Vol] 96 mg/dL Normal 74-106 [facility] Comment on above: Performed By: #### T SH, CMP #### [facility] [address] [place] [address] [address] Rene De Jesus Potassium [Moles/Vol] 4.0 mmol/L Normal 3.5-5.1 [facility] Comment on above: Performed By: #### T SH, CMP #### [facility] [address] [place] [address] [address] Rene De Jesus Protein [Mass/Vol] 7.2 g/dL Normal 6.4-8.2 [facility] Comment on above: Performed By: #### T SH, CMP #### [facility] [address] [place] [address] [address] Rene De Jesus Sodium [Moles/Vol] 140 mmol/L Normal 136-145 [facility] Comment on above: Performed By: #### T SH, CMP #### [facility] [address] [place] [address] [address] Rene De Jesus Urea nitrogen [Mass/Vol] 18.0 mg/dL Normal 7.0-18.0 [facility] Comment on above: Performed By: #### T SH, CMP #### [facility] [address] [place] [address] [address] Rene De Jesus Urea nitrogen/Creatinine [Mass ratio] 26.1 mg/mg Normal [facility] Comment on above: Performed By: #### T SH, CMP #### [facility] [address] [place] [address] Dr. Rene De Jesus TSHon 03-20-2022 TSH 2.033 uIU/mL Normal 0.358-3.740 [facility] Comment on above: Performed By: #### T SH, CMP #### [facility] [address] [place] [address] Dr. Rene De Jesus XR foot RT min 3V*on 022 XR foot RT min 3V* [facility] [employer] Other XR foot RT min 3V* [facility] [employer] Other XR foot RT min 3V* [address] [email or web address] Other XR foot RT min 3V* [place] [address] [email or web address] Other XR foot RT min 3V* XRay Report [email or web address] Other XR foot RT min 3V* Signed [email or web address] Other XR foot RT min 3V* Patient: Edna Sultana MR#: [id number] [email or web address] Other XR foot RT min 3V* 2916 [email or web address] Other XR foot RT min 3V* : 1965 Acct:[id number] [email or web address] Other XR foot RT min 3V* Age/Sex: 56 / F ADM Date: 01/28/22 [email or web address] Other XR foot RT min 3V* Loc: XDUCLY Room: Type: REG I [email or web address] Other XR foot RT min 3V* Attending Dr: Shara Cutler [facility] [email or web address] Other XR foot RT min 3V* [facility]: [facility] [email or web address] Other XR foot RT min 3V* Ordering Provider: SHARA CUTLER [facility] [email or web address] Other XR foot RT min 3V* Date of Service: 01/28/22 [email or web address] Other XR foot RT min 3V* XR/XR foot RT min 3V*: Injury of right foot, initial encounter [email or web address] Other XR foot RT min 3V* 3 viewsRIGHT foot plain film [email or web address] Other XR foot RT min 3V* COMPARISON:None [facility] [employer] Other XR foot RT min 3V* HISTORY:RIGHT foot injury. [email or web address] Other XR foot RT min 3V* No acute fracture, dislocation or focal soft tissue abnormality seen. Chronic deformity of the 5th [email or web address] Other XR foot RT min 3V* metatarsal identified. [email or web address] Other XR foot RT min 3V* XR/XR foot RT min 3V* [email or web address] Other XR foot RT min 3V* IMPRESSION:No acute findings [email or web address] Other XR foot RT min 3V* Impression dictated by: Lukas Nicole M.D.01/28/2022 3:27 PM [email or web address] Other XR foot RT min 3V* Dictation Location: [place] [address] [email or web address] Other XR foot RT min 3V* Transcribed By: RODERICK 01/28/22 [facility] [email or web address] Other XR foot RT min 3V* Dictated By: Lukas Nicole DO 01/28/22 [facility] [email or web address] Other XR foot RT min 3V* Signed By: [email or web address] Other XR foot RT min 3V* 01/28/[address] [place] [address] [employer] [address] ABD/PELVIS WO CONon 08-01 CT [...] by: MARGO ELLIOTT Date: 2021-08-01 02:33 Normal [facility] ER URINE PROFILEon 2 Bilirubin Ql (U) Negative Normal NEGATIVE [facility] Comment on above: Performed By: #### E RUR #### [facility] [address] [place] [address] Dr. Rene De Jesus Clarity (U) CLEAR Normal CLEAR [facility] Comment on above: Performed By: #### E RUR #### [facility] [address] [place] [address] Dr. Rene De Jesus Color (U) YELLOW Normal YELLOW [facility] Comment on above: Performed By: #### E RUR #### [facility] [address] [place] [address] Dr. Rene De Jesus ERUGRISELD A micrscopic examination will be performed if indicated. Normal [facility] Comment on above: Performed By: #### E RUR #### [facility] [address] [place] [address] Dr. Rene De Jesus Glucose Ql (U) Negative Normal NEGATIVE [facility] Comment on above: Performed By: #### E RUR #### [facility] [address] [place] [address] Dr. Rene De Jesus Hemoglobin Ql (U) Negative Normal NEGATIVE [facility] Comment on above: Performed By: #### E RUR #### [facility] [address] [place] [address] Dr. Rene De Jesus Ketones Ql (U) Negative Normal NEGATIVE [facility] Comment on above: Performed By: #### E RUR #### [facility] [address] [place] [address] Dr. Rene De Jesus LEUKOCYTES Negative Normal NEGATIVE [facility] Comment on above: Performed By: #### E RUR #### [facility] [address] [place] [address] Dr. Rene De Jesus Nitrite Ql (U) Negative Normal NEGATIVE [facility] Comment on above: Performed By: #### E RUR #### [facility] [address] [place] [address] Dr. Rene De Jesus pH (U) 7.5 [pH] Normal 5-9 [facility] Comment on above: Performed By: #### E RUR #### [facility] [address] [place] [address] Dr. Rene De Jesus SPEC GRAVITY 1.015 Normal 1.005-<=1.025 [facility] Comment on above: Performed By: #### E RUR #### [facility] [address] [place] [address] Dr. Rene De Jesus UA PROTEIN Negative Normal NEGATIVE/ TRACE [facility] Comment on above: Performed By: #### E RUR #### [facility] [address] [place] [address] Dr. Rene De Jesus UR MICRO IND NOT INDICATED Normal [facility] Comment on above: Performed By: #### E RUR #### [facility] [address] [place] [address] Dr. Rene De Jesus Urobilinogen Qn (U) 0.2 {Raman'U}/dL Normal 0.2 - 1. 0 [facility] Comment on above: Performed By: #### E RUR #### [facility] [address] [place] [address] Dr. Rene De Jesus Otheron 09-06-2020 BILIRUBIN UA (POCT) Negative Negative [facility] CLARITY UA (POCT) Clear [facility] COLOR UA (POCT) Yellow [facility] GLUCOSE UA (POCT) Negative Negative mg/dL [facility] HEMOGLOBIN/BLOOD UA (POCT) Negative Negative [facility] KETONE UA (POCT) Negative Negative mg/dL [facility] LEUKOCYTES UA (POCT) Negative Negative [facility] NITRITE UA (POCT) Negative [facility] UA (POCT) 8.5 Abnormal 4.5 - 8.0 [facility] inic Protein Ql (U) Negative Negative mg/dL [facility] SPECIFIC GRAVITY UA (POCT) 1.020 1.005 - 1.030 [facility] UROBILINOGEN UA (POCT) 0.2 E.U./dL Normal E.U./dL [facility] Ambulatory Clinical Summaryo n 05-30-2020 Ambulatory Clinical Summary {[id number]}CD:[id number] Normal [facility] Patient Educationon 05-30-20 Patient Education Family Medicine Urinary Frequency The [...] Document Reviewed: 04/19/2010 ExitCare? Patient Information ?2013 [employer] [facility] Urology Office/Clinic Noteon 05-30-2020 Urology Office/Clinic Note [...] prior. Pt. acknowledges understanding. Script sent to [facility] in [place]. F/u in 6wks. w/ PVR. 2. Nocturia (R35.1: Nocturia) 1-2x/night as opposed to 5-6x/night. 3. Incomplete bladder emptying (R33.9: Retention of urine, unspecified) PVR today - 0ml. Previous encounter - 148ml. 4. Urethral stricture (N35.919: Unspecified urethral stricture, male, unspecified site) S/p Cysto/UD done 02/17/2020. Orders: tolterodine, 2 mg = 1 tab(s), Oral, BID, # 60 tab(s), Refills(s) 1, [facility], 179, cm, 05/30/20 10:22:00 EST, Height/Length Dosing, 67, kg, 05/30/20 10:22:00 EST, Weight Dosing Measure Post Void residule urine and/or bladder capacity by US- non-imaging 36760 Urnls Dip Stick Auto w/o Microscopy POC [id number] I have reviewed the previous health record information and history for this pt. from Dr. Zepeda. Follow-up With When Contact Information Duane Chester MD, Michael Powell [address] [place] [address]- Additional Instructions: 6wks. w/ PVR Patient Education [...] Protein Urine Dipstick: Negative (05/30/20 10:05:00) Specific [place] Urine Dipstick: 1.020 (05/30/20 10:05:00) Urine Appearance [...] organisms something would like to avoid. Normal [facility] Comment on above: Result Comment: Elec tronically Signed By: Duane Chester MD, Michael Powell\.br\Date and Time Signed: 05/30/20 14:58 EST\.br\Electronically Co-Signed By: Lexi Caldera MA\.br\Date and Time Co-Signed: 05/30/20 11:14 EST Ambulatory Clinical Summaryo n 03-14-2020 Ambulatory Clinical Summary {[id number]}CD:[id number] Normal [facility] Patient Educationon 03-14-20 Patient Education Family Medicine Urinary Frequency The [...] Document Reviewed: 04/19/2010 ExitCare? Patient Information ?2013 [employer] [facility] Urology Office/Clinic Noteon 03-14-2020 Urology Office/Clinic Note [...] needed, # 20 tab(s), Refills(s) 1, Pharmacy: [facility] 594, 179, cm, 03/14/20 8:37:00 EDT, Height/Length Dosing, 67, kg, 03/14/20 8:44:00 EDT, Weight Dosing PVR urine/bladder capacity/[place] 54446 Urnls Dip Stick Auto w/o Microscopy POC [id number] I have reviewed the previous health record information and history for this patient from Dr. Zepeda Follow-up With When Contact Information Duane Chester MD, Michael Powell In 4 months [facility] [address], [place] [address]- Additional Instructions: PVR Patient Education Urinary Frequency [...] Protein Urine Dipstick: Negative (03/14/20 08:42:00) Specific [place] Urine Dipstick: >=1.030 (03/14/20 08:42:00) Urine Appearance Urine Dipstick: Clear (03/14/20 08:42:00) Urine Color Urine Dipstick: Yellow (03/14/20 08:42:00) Urobilinogen Urine Dipstick: Normal 0.2-1 EU/dl (03/14/20 08:42:00) pH Urine Dipstick: 5.5 (03/14/20 08:42:00) Diagnostic Results Urinalysis was reviewed and it was negative for infection. Normal [facility] Comment on above: Result Comment: Elec tronically Signed By: Duane Chester MD, Michael Powell\.br\Date and Time Signed: 03/14/20 09:47 EDT\.br\Electronically Co-Signed By: Corinne Garcia MA\.br\Date and Time Co-Signed: 03/14/20 09:29 EDT Lab [place]son 03-02-2020 Lab Reports [id number] #1.00CD:127 Normal [facility] RAD - MISCon 03-02-2020 RAD - MIS [id number]# 1.00CD:127 [facility] Coding Summary.on 02-21-2020 Coding Summary. CODING DATE: 02/21/2020 FINAL [facility] DSC STATUS: Home (Routine DC) PAYOR: [facility] [place] [facility] DESCRIPTION 5373 Level 3 Urology and [...] Angeles Rodríguez Date Saved: 02/21/2020 03:23 pm [facility] Consent for Procedure/Surger yon 02-21-2020 Consent for Procedure/Surgery [id number] #1.00CD:127 [facility] Discharge Instructionson Discharge Instructions [id number] #1.00CD:127 [facility] History and Physicalon 02-20 History and Physical [id number] #1.00CD:127 [facility] IntraOperative Documentson 0 02-21-2020 IntraOperative Documents [id number] #1.00CD:127 [facility] Consent for Treatmenton 02-04 Consent for Treatment [id number] #1.00CD:127 [facility] Main OR Intraoperative Recor don 02-17-2020 Main OR Intraoperative Record IntraOp Document Type FTURO Summary Primary Physician: Michael Zepeda Jr., MD Finalized Date/Time: 02/17/20 13:45:22 Pt. Name: EDNA SULTANA/Sex: 1965 Female Med Rec #: [id number] Physician: Michael Zepeda Jr., MD Financial #: [id number] Pt. Type: O Room/Bed: / Admit/Disch: 02/17/20 [...] Tonia Guerrero Role Performed Surgeon - Primary Garde Manger - Primary Scrub - Primary Time In 02/17/20 13:35:00 02/17/20 13:35:00 02/17/20 13:35:00 Time Out 02/17/20 13:50:00 02/17/20 13:50:00 02/17/20 13:50:00 Procedure CYSTOSCOPY LOCAL WITH CYSTOSCOPY LOCAL WITH CYSTOSCOPY LOCAL WITH URETHRAL DILATION(.) URETHRAL DILATION(.) URETHRAL DILATION(.) Comments Last Modified By: Mode SALAZAR, FAWADOR, Mode SALAZAR, FAWADOR, Mode SALAZAR, ANTONINA, Yolanda 02/17/20 Yolanda 02/17/20 Yolanda 02/17/20 13:44:53 [...] Modified By: ANTONINA Coello RN, Ruthann 02/17/20 13:45:17 Post-Care Text: The patient is [...] Position Verified Availability Equipment, Medication Time Out Duane Chester MD, Michael Powell, Verified (If Participants Mode SALAZAR, ANTONINA, Applicable) Ritu Guerrero CST, Tonia Time Out Complete 02/17/20 13:39:00 Allergies [...] ANTONINA Coello RN, Ruthann 02/17/20 13:45 Normal [facility] Main OR Preoperative Recordo n 02-17-2020 Main OR Preoperative Record Holding Area Document Type FTURO Summary Primary Physician: Michael Zepeda Jr., MD Finalized Date/Time: 02/17/20 13:41:35 Pt. Name: EDNA SULTANA/Sex: 1965 Female Med Rec #: [id number] Physician: Michael Zepeda Jr., MD Financial #: [id number] Pt. Type: O Room/Bed: / Admit/Disch: 02/17/20 [...] ANTONINA Coello RN, Ruthann 02/17/20 13:41 Normal [facility] Operative Reporton 0 Operative Report Patient: EDNA [...] Local Cystoscopy with Urethral Dilation. Complications: None. Risks/Benefits/Infor med Consent: Surgical risks, benefits, details of the [...] urine. The Urethra was dilated to: 28 Egyptian w/ sounds. Devices Implanted: None. Removal: Cystoscope is removed, The patient tolerated it well. Postoperative Information Discharge: Patient is discharged home with antibiotic coverage, Follow up arranged. Normal [facility] Comment on above: Result Comment: Elec tronically Signed By: Duane Chester MD, Michael Powell\.br\Date and Time Signed: 02/17/20 14:09 EDT Patient Educationon 02-17-20 20 Patient Education Cystoscopy with Urethral Dilation ? [...] have a fever over 100 degrees Normal [facility] Ambulatory Clinical Summaryo n 02-11-2020 Ambulatory Clinical Summary {[id number]}CD:[id number] Normal [facility] Patient Educationon 02-10-20 Patient Education Urinary Tract [...] Document Reviewed: 07/31/2012 ExitCare? Patient Information ?2013 [employer]. Johnathan [facility] Urology Office/Clinic Noteon 02-10-2020 Urology Office/Clinic Note [...] Pt had a KUB done at the [facility]. Pt started a probiotic plexus and [...] vaginal discharge, denies incontinence, mild dysuria, mild hematuria,microscopi c denies urinary frequency, denies amenorrhea, denies menorrhagia, [...] infections with yeast. She will try an ypjr-gbd-zabrmal antifungal cream to be used on an [...] Will order Local anesthesia. ABX sent to [facility] in [place]. Ordered: Urology Procedure Order 2. Incomplete bladder [...] day(s), # 2 tab(s), Refills(s) 0, Pharmacy: [facility], 179, cm, 02/10/20 9:03:00 EDT, Height/Length Measured, 68, kg, 02/10/20 9:03:00 EDT, Weight Kuldeep... PVR urine/bladder capacity/[place] 06245 Urnls Dip Stick Auto w/o Microscopy POC 23805 I have reviewed the previous health record [...] Protein Urine Dipstick: Negative (02/10/20 09:28:00) Specific [place] Urine Dipstick: 1.010 (02/10/20 09:28:00) Urine Appearance Urine Dipstick: Clear (02/10/20 09:28:00) Urine Color Urine Dipstick: Light yellow (02/10/20 09:28:00) Urobilinogen Urine Dipstick: Normal 0.2-1 EU/dl (02/10/20 09:28:00) pH Urine Dipstick: 6.5 (02/10/20 09:28:00) Diagnostic Results Reviewed urinalysis showed no infection. Reviewed notes from her primary care physician's office. Reviewed laboratory studies from [facility]. Reviewed KUB x-ray from 01/28/2020 showing large amount of stool in the colon. Normal [facility] Comment on above: Result Comment: Elec tronically Signed By: Duane Chester MD, Michael Powell\.br\Date and Time Signed: 02/10/20 10:11 EDT\.br\Electronically Co-Signed By: Lexi Caldera MA\.br\Date and Time Co-Signed: 02/10/20 09:50 EDT ANTI-SSAon 01-19-2019 ANTI-SSA <0.[address] [facility] Comment on above: Result Comment: REF VALUES < 1.0 = NEGATIVE >=1.0 = POSITIVE Performed By: #### A -SSA #### [facility] [address] [place] [address] ANTI-SSBon 01-19-2019 ANTI-SSB <0.[address] [facility] Comment on above: Result Comment: REF VALUES < 1.0 = NEGATIVE >=1.0 = POSITIVE Performed By: #### A -SSB #### [facility] [address] [place] [address] C-REACTIVE PROTEINon 019 CRP [Mass/Vol] 0.13 mg/dL Normal [facility] [place] Comment on above: Result Comment: REF VALUE < 1.00 Performed By: #### C RP #### [facility] [address] [place] [address] SEDIMENTATION RATE, ERYTHROC YTEon 01-19-2019 SEDIMENTATION RATE, ERYTHROCYTE 3 mm/h Normal 0 - 30 [facility] Comment on above: Performed By: #### E SRWS #### [facility] [address] [place] [address] Vital Signs Date Time Vital Sign Value Performing Clinician Facility 09-30-2023 10:22-0400 Body height 179.1 cm [facility] 09-30-2023 10:22-0400 Body mass index (BMI) [Ratio] 22.48 kg/m2 [facility] 09-30-2023 10:22-0400 Body weight 72.12 kg [facility] 09-30-2023 10:22-0400 Diastolic blood pressure 64 mm[Hg] [facility] 09-30-2023 10:22-0400 Systolic blood pressure 120 mm[Hg] [facility] 05-22-2023 11:30-0500 Body height 177.16 cm Yannick Velázquez Other [email or web address] Other 05-22-2023 11:30-0500 Body mass index (BMI) [Ratio] 22.4 kg/m2 Yannick Velázquez Other [email or web address] Other 05-22-2023 11:30-0500 Body temperature 98.5 [degF] Yannick Velázquez Other [email or web address] Other 05-22-2023 11:30-0500 Body weight 70.31 kg Yannick Velázquez Other [email or web address] Other 05-22-2023 11:30-0500 Diastolic blood pressure 88 mm[Hg] Yannick Velázquez Other [email or web address] Other 05-22-2023 11:30-0500 Respiratory rate 18 /min Yannick Velázquez Other [email or web address] Other 05-22-2023 11:30-0500 SaO2% (BldA) [Mass fraction] 98 % Yannick Velázquez Other [email or web address] Other 05-22-2023 11:30-0500 Systolic blood pressure 138 mm[Hg] Yannick Velázquez Other [email or web address] Other 03-19-2023 15:20-0400 Body height 177.16 cm Victorina Blades Other [email or web address] Other 03-19-2023 15:20-0400 Body mass index (BMI) [Ratio] 23.26 kg/m2 Victorina Blades Other [email or web address] Other 03-19-2023 15:20-0400 Body weight 73.03 kg Victorina Blades Other [email or web address] Other 03-19-2023 15:20-0400 Diastolic blood pressure 84 mm[Hg] Victorina Blades Other [email or web address] Other 03-19-2023 15:20-0400 Systolic blood pressure 130 mm[Hg] Victorina Blades Other [email or web address] Other 02-23-2023 13:27-0400 Body height 177.8 cm DO Yannick Velázquez Work Phone: [facility] 02-23-2023 13:27-0400 Body temperature 99 [degF] DO Yannick Velázquez Work Phone: [facility] 02-23-2023 13:27-0400 Body weight 72.05 kg DO Yannick Velázquez Work Phone: [facility] 02-23-2023 13:27-0400 Diastolic blood pressure 95 mm[Hg] DO Yannick Velázquez Work Phone: [facility] 02-23-2023 13:27-0400 Heart rate 101 /min DO Yannick Velázquez Work Phone: [facility] 02-23-2023 13:27-0400 Respiratory rate 18 /min DO Yannick Velázquez Work Phone: [facility] 02-23-2023 13:27-0400 SaO2% (BldA) [Mass fraction] 98 % DO Yannick Velázquez Work Phone: [facility] 02-23-2023 13:27-0400 Systolic blood pressure 152 mm[Hg] DO Yannick Velázquez Work Phone: [facility] 02-12-2023 10:00-0400 Body height 177.16 cm Victorina Blades Other [email or web address] Other 02-12-2023 10:00-0400 Body mass index (BMI) [Ratio] 23.41 kg/m2 Victorina Blades Other [email or web address] Other 02-12-2023 10:00-0400 Body weight 73.48 kg Victorina Blades Other [email or web address] Other 02-12-2023 10:00-0400 Diastolic blood pressure 82 mm[Hg] Victorina Blades Other [email or web address] Other 02-12-2023 10:00-0400 Systolic blood pressure 120 mm[Hg] Victorina Blades Other [email or web address] Other 01-21-2023 09:10-0400 Body height 177.16 cm Tonia Sandoval Other [email or web address] Other 01-21-2023 09:10-0400 Body mass index (BMI) [Ratio] 23.84 kg/m2 Tonia Sandoval Other [email or web address] Other 01-21-2023 09:10-0400 Body temperature 97.6 [degF] Tonia Sandoval Other [email or web address] Other 01-21-2023 09:10-0400 Body weight 74.84 kg Tonia Sandoval Other [email or web address] Other 01-21-2023 09:10-0400 Diastolic blood pressure 88 mm[Hg] Tonia Sandoval Other [email or web address] Other 01-21-2023 09:10-0400 Respiratory rate 18 /min Tonia Sandoval Other [email or web address] Other 01-21-2023 09:10-0400 SaO2% (BldA) [Mass fraction] 99 % Tonia Sandoval Other [email or web address] Other 01-21-2023 09:10-0400 Systolic blood pressure 125 mm[Hg] Tonia Sandoval Other [email or web address] Other 12-20-2022 08:10-0400 Body height 177.16 cm Yannick Velázquez Other [email or web address] Other 12-20-2022 08:10-0400 Body mass index (BMI) [Ratio] 23.55 kg/m2 Yannick Velázquez Other [email or web address] Other 12-20-2022 08:10-0400 Body temperature 98.6 [degF] Yannick Velázquez Other [email or web address] Other 12-20-2022 08:10-0400 Body weight 73.94 kg Yannick Johnnakaren Other [email or web address] Other 12-20-2022 08:10-0400 Diastolic blood pressure 70 mm[Hg] Yannick Velázquez Other [email or web address] Other 12-20-2022 08:10-0400 Respiratory rate 20 /min Yannick Velázquez Other [email or web address] Other 12-20-2022 08:10-0400 SaO2% (BldA) [Mass fraction] 97 % Yannick Velázquez Other [email or web address] Other 12-20-2022 08:10-0400 Systolic blood pressure 110 mm[Hg] Yannick Velázquez Other [email or web address] Other 07-19-2022 13:30-0500 Body height 177.16 cm Yannick Velázquez Other [email or web address] Other 07-19-2022 13:30-0500 Body mass index (BMI) [Ratio] 24.2 kg/m2 Yannick Velázquez Other [email or web address] Other 07-19-2022 13:30-0500 Body temperature 97.8 [degF] Yannick Velázquez Other [email or web address] Other 07-19-2022 13:30-0500 Body weight 75.98 kg Yannick Velázquez Other [email or web address] Other 07-19-2022 13:30-0500 Diastolic blood pressure 82 mm[Hg] Yannick Velázquez Other [email or web address] Other 07-19-2022 13:30-0500 Respiratory rate 18 /min Yannick Velázquez Other [email or web address] Other 07-19-2022 13:30-0500 SaO2% (BldA) [Mass fraction] 97 % Yannick Velázquez Other [email or web address] Other 07-19-2022 13:30-0500 Systolic blood pressure 116 mm[Hg] Yannick Velázquez Other [email or web address] Other 06-24-2022 15:40-0500 Body height 177.16 cm Yannick Gisel Other [email or web address] Other 01-28-2022 14:45-0400 Body height 177.16 cm Shara Cutler Other [email or web address] Other 01-28-2022 14:45-0400 Body mass index (BMI) [Ratio] 24.71 kg/m2 Shara Cutler Other [email or web address] Other 01-28-2022 14:45-0400 Body temperature 98.5 [degF] Shara Cutler Other [email or web address] Other 01-28-2022 14:45-0400 Body weight 77.57 kg Shara Cutler Other [email or web address] Other 01-28-2022 14:45-0400 Diastolic blood pressure 79 mm[Hg] Shara Cutler Other [email or web address] Other 01-28-2022 14:45-0400 Respiratory rate 18 /min Shara Cutler Other [email or web address] Other 01-28-2022 14:45-0400 SaO2% (BldA) [Mass fraction] 99 % Shara Sullivanault Other [email or web address] Other 01-28-2022 14:45-0400 Systolic blood pressure 111 mm[Hg] Shara Sullivanault Other [email or web address] Other 01-09-2022 15:20-0400 Body height 177.16 cm Yannick Velázquez Other [email or web address] Other 01-09-2022 15:20-0400 Body mass index (BMI) [Ratio] 25 kg/m2 Yannick Velázquez Other [email or web address] Other 01-09-2022 15:20-0400 Body temperature 98.1 [degF] Yannick Velázquez Other [email or web address] Other 01-09-2022 15:20-0400 Body weight 78.47 kg Yannick Velázquez Other [email or web address] Other 01-09-2022 15:20-0400 Diastolic blood pressure 76 mm[Hg] Yannick Velázquez Other [email or web address] Other 01-09-2022 15:20-0400 Respiratory rate 18 /min Yannick Velázquez Other [email or web address] Other 01-09-2022 15:20-0400 SaO2% (BldA) [Mass fraction] 97 % Yannick Velázquez Other [email or web address] Other 01-09-2022 15:20-0400 Systolic blood pressure 120 mm[Hg] Yannick Velázquez Other [email or web address] Other 09-10-2021 12:10-0500 Body height 177.16 cm Yannick Gisel Other [email or web address] Other 09-10-2021 12:10-0500 Body mass index (BMI) [Ratio] 24.42 kg/m2 Yannick Gisel Other [email or web address] Other 09-10-2021 12:10-0500 Body temperature 97.9 [degF] Yannick Johnnakaren Other [facility] Other 09-10-2021 12:10-0500 Body weight 76.66 kg Yannick Gisel Other [email or web address] Other 09-10-2021 12:10-0500 Diastolic blood pressure 80 mm[Hg] Yannick Velázquez Other [email or web address] Other 09-10-2021 12:10-0500 Respiratory rate 16 /min Yannick Velázquez Other [email or web address] Other 09-10-2021 12:10-0500 SaO2% (BldA) [Mass fraction] 97 % Yannick Velázquez Other [email or web address] Other 09-10-2021 12:10-0500 Systolic blood pressure 118 mm[Hg] Yannick Johnnakaren Other [email or web address] Other 06-11-2021 12:10-0500 Body height 177.16 cm Yannick Johnnakaren Other [email or web address] Other 06-11-2021 12:10-0500 Body mass index (BMI) [Ratio] 23.34 kg/m2 Yannick Velázquez Other [email or web address] Other 06-11-2021 12:10-0500 Body temperature 97.6 [degF] Yannick Velázquez Other [email or web address] Other 06-11-2021 12:10-0500 Body weight 73.26 kg Yannick Velázquez Other [email or web address] Other 06-11-2021 12:10-0500 Diastolic blood pressure 88 mm[Hg] Yannick Velázquez Other [email or web address] Other 06-11-2021 12:10-0500 Respiratory rate 18 /min Yannick Johnnakaren Other [email or web address] Other 06-11-2021 12:10-0500 SaO2% (BldA) [Mass fraction] 99 % Yannick Velázquez Other [email or web address] Other 06-11-2021 12:10-0500 Systolic blood pressure 122 mm[Hg] Yannick Velázquez Other [email or web address] Other 09-06-2020 13:39-0500 Body weight 70.76 kg [facility] 09-06-2020 13:39-0500 Height 180.3 cm [facility] Encounters Encounter Date Encounter Type Care Provider Facility Start: 10-23-2023 ambulatory Abiodun rios DO Work Phone: [facility] Start: 10-23-2023 Patient encounter procedure Abiodun Castano DO Work Phone: [facility] Comment on above: Today's Appointment Start: 10-21-2023 End: 10-21-2023 ambulatory ABIODUN CASTANO Facility:[facility] Start: 09-30-2023 End: 09-30-2023 ambulatory YANNICK VELÁZQUEZ [facility] Start: 09-30-2023 End: 09-30-2023 Office outpatient visit 15 minutes Pcr Ob Accident Report Clerk [facility] Certified Nurse Accident Report Clerk - [place] Comment on above: PMB (postmenopausal bleeding) (Primary Dx); Vaginal atrophy Start: 09-17-2023 End: 09-17-2023 ambulatory [facility] Work Phone: Start: 09-17-2023 End: 09-17-2023 Patient encounter procedure [facility] [place] Work Phone: Start: 07-30-2023 End: 07-30-2023 ambulatory REZA GORMAN Not Available Start: 06-17-2023 End: 06-17-2023 ambulatory Yannick Velázquez Other [email or web address] Other Start: 06-17-2023 Office outpatient vi sit 15 minutes Yannick Velázquez [facility] [place] Start: 05-27-2023 End: 05-28-2023 ambulatory Yannick Velázquez DO Facility:[facility] Start: 05-23-2023 End: 05-23-2023 ambulatory Yannick Velázquez Other [email or web address] Other Start: 05-23-2023 Telephone encounter Yannick Velázquez [facility] [place] Start: 05-22-2023 End: 05-22-2023 ambulatory Yannick Velázquez Other [email or web address] Other Start: 05-22-2023 Office outpatient vi sit 25 minutes Yannick Velázquez [facility] [place] Start: 04-29-2023 End: 04-29-2023 ambulatory Yannick Velázquez Other [email or web address] Other Start: 04-29-2023 Telephone encounter Yannick Velázquez [facility] [place] Start: 04-16-2023 End: 04-16-2023 ambulatory Yannick Velázquez Other [email or web address] Other Start: 04-16-2023 Telephone encounter Yannick Velázquez [facility] [place] Start: 04-15-2023 End: 04-15-2023 ambulatory Yannick Velázquez Other [email or web address] Other Start: 04-15-2023 Telephone encounter Yannick Velázquez [facility] [place] Start: 04-02-2023 End: 04-02-2023 ambulatory Yannick Velázquez Other [email or web address] Other Start: 04-02-2023 Telephone encounter Yannick Velázquez [facility] [place] Start: 03-19-2023 End: 03-19-2023 ambulatory Victorina Michelle Other [email or web address] Other Start: 03-19-2023 Office outpatient vi sit 15 minutes Victorina Martinez [facility] Start: 03-13-2023 End: 03-13-2023 ambulatory Yannick Velázquez Other [email or web address] Other Start: 03-13-2023 Telephone encounter Yannick Velázquez [facility] [place] Start: 03-05-2023 End: 03-05-2023 ambulatory Yannick Velázquez Other [email or web address] Other Start: 03-05-2023 Telephone encounter Yannick Velázquez [facility] [place] Start: 03-03-2023 End: 03-03-2023 ambulatory Yannick Velázquez Other [email or web address] Other Start: 03-03-2023 Telephone encounter Yannick Velázquez [facility] [place] Start: 02-27-2023 End: 02-27-2023 ambulatory Yannick Velázquez Facility:[facility] Start: 02-27-2023 End: 02-27-2023 ambulatory DO Yannick Velázquez Work Phone: [facility] Work Phone: Start: 02-27-2023 End: 02-27-2023 Patient encounter procedure DO Yannick Velázquez Work Phone: [facility]MRI [facility] [place] Work Phone: Start: 02-23-2023 End: 02-23-2023 Emergency department patient visit Yannick Velázquez Facility:[facility] Start: 02-23-2023 End: 02-23-2023 Emergency department patient visit DO Yannick Velázquez Work Phone: [facility] Work Phone: Start: 02-14-2023 End: 02-14-2023 ambulatory Victorina Blades Other [email or web address] Other Start: 02-14-2023 Telephone encounter Victorina Blades [facility] Neuro[facility] Start: 02-12-2023 End: 02-12-2023 ambulatory Victorina Blades Other [email or web address] Other Start: 02-12-2023 Office outpatient vi sit 15 minutes Victorina Blades [facility] Start: 02-10-2023 End: 02-10-2023 ambulatory Yannick Velázquez Other [email or web address] Other Start: 02-10-2023 Telephone encounter Yannick Velázquez [facility] [place] Start: 02-05-2023 End: 02-05-2023 ambulatory Yannick Velázquez Other [email or web address] Other Start: 02-05-2023 Telephone encounter Yannick Velázquez [facility] [place] Start: 01-21-2023 End: 01-21-2023 ambulatory Tonia Sandoval Other [email or web address] Other Start: 01-21-2023 Office outpatient vi sit 25 minutes Tonia Sandoval [facility] Start: 01-08-2023 End: 01-08-2023 ambulatory Yannick Velázquez Other [email or web address] Other Start: 01-08-2023 Telephone encounter Yannick Velázquez [facility] [place] Start: 01-03-2023 End: 01-03-2023 ambulatory Yannick Velázquez Other [email or web address] Other Start: 01-03-2023 Telephone encounter Yannick Velázquez [facility] [place] Start: 01-02-2023 Telephone encounter Yannick Velázquez [facility] [place] Start: 01-02-2023 End: 01-02-2023 ambulatory Yannick Velázquez Facility:[facility] Start: 01-02-2023 End: 01-02-2023 ambulatory DO Yannick Velázquez Work Phone: [facility] Work Phone: Start: 01-02-2023 End: 01-02-2023 Patient encounter procedure DO Yannick Velázquez Work Phone: [facility]-Ultrasound [facility] [place] Work Phone: Start: 12-20-2022 End: 12-20-2022 ambulatory Yannick Velázquez Other [email or web address] Other Start: 12-20-2022 Office outpatient vi sit 25 minutes Yannick Velázquez [facility] [place] Start: 09-24-2022 End: 09-24-2022 ambulatory Victorina Martinez Other [email or web address] Other Start: 09-24-2022 Telephone encounter Victorina Andino [facility] [employer] Start: 09-16-2022 End: 09-16-2022 ambulatory Yannick Velázquez Other [email or web address] Other Start: 09-16-2022 Office outpatient vi sit 10 minutes Yannick Velázquez [facility] [place] Start: 09-16-2022 Telephone encounter Yannick Velázquez [facility] Start: 08-29-2022 End: 08-29-2022 ambulatory Yannick Velázquez Other [email or web address] Other Start: 08-29-2022 Telephone encounter Yannick Velázquez [facility] [place] Start: 08-28-2022 End: 08-28-2022 ambulatory Yannick Velázquez Facility:[facility] Start: 08-28-2022 End: 08-28-2022 ambulatory DO Yannick Velázquez Work Phone: [facility] Work Phone: Start: 08-28-2022 End: 08-28-2022 Patient encounter procedure DO Yannick Velázquez Work Phone: [facility] [place] Work Phone: Start: 08-07-2022 End: 08-07-2022 ambulatory Yannick Velázquez Other [email or web address] Other Start: 08-07-2022 Telephone encounter Yannick Velázquez [facility] [place] Start: 07-24-2022 End: 07-24-2022 ambulatory Yannick Velázquez Other [email or web address] Other Start: 07-24-2022 Telephone encounter Yannick Velázquez [facility] [place] Start: 07-19-2022 End: 07-19-2022 ambulatory Yannick Velázquez Other [email or web address] Other Start: 07-19-2022 Office outpatient vi sit 25 minutes Yannick Velázquez [facility] [place] Start: 07-03-2022 End: 07-04-[address] YANNICK VELÁZQUEZ Facility: Start: 07-03-2022 Telephone encounter Yannick Velázquez [facility] [place] Start: 06-24-2022 End: 06-24-2022 ambulatory Yannick Velázquez Other [email or web address] Other Start: 06-24-2022 Office outpatient vi sit 15 minutes Yannick Velázquez [facility] [place] Start: 06-24-2022 Telephone encounter Yannick Velázquez [facility] [place] Start: 05-29-2022 End: 05-29-2022 ambulatory Yannick Velázquez Other [email or web address] Other Start: 05-29-2022 Telephone encounter Yannick Velázquez [facility] [place] Start: 05-09-2022 End: 05-09-2022 ambulatory Yannick Velázquez Other [email or web address] Other Start: 05-09-2022 Telephone encounter Yannick Velázquez [facility] [place] Start: 04-10-2022 End: 04-10-2022 ambulatory Yannick Velázquez Other [email or web address] Other Start: 04-10-2022 Office outpatient vi sit 15 minutes Yannick Velázquez [facility] [place] Start: 03-26-2022 End: 03-26-2022 ambulatory Yannick Velázquez Other [email or web address] Other Start: 03-26-2022 Office outpatient vi sit 15 minutes Yannick Velázquez [facility] [place] Start: 03-20-2022 End: 03-21-[address] YANNICK VELÁZQUEZ Facility:[facility] Start: 02-15-2022 End: 02-15-2022 ambulatory Yannick Velázquez Other [email or web address] Other Start: 02-15-2022 Telephone encounter Yannick Velázquez [facility] [place] Start: 01-28-2022 End: 01-28-2022 Patient encounter procedure BEAD SUPERVISOR-C Shara Cutler Work Phone: [facility] [place] Start: 01-28-2022 End: 01-28-2022 ambulatory Shara Cutler Other [email or web address] Other Start: 01-28-2022 Office outpatient vi sit 15 minutes Shara Cutler [facility] [place] Start: 01-11-2022 End: 01-11-2022 ambulatory Yannick Velázquez Other [email or web address] Other Start: 01-11-2022 Telephone encounter Yannick Velázquez [facility] [place] Start: 01-10-2022 End: 01-11-[address] YANNICK VELÁZQUEZ Facility:[facility] Start: 01-09-2022 End: 01-09-2022 ambulatory Yannick Velázquez Other [email or web address] Other Start: 01-09-2022 Office outpatient vi sit 15 minutes Yannick Velázquez [facility] [place] Start: 01-08-2022 End: 01-08-2022 ambulatory Yannick Velázquez Other [email or web address] Other Start: 01-08-2022 Telephone encounter Yannick Velázquez [facility] [place] Start: 12-24-2021 End: 12-24-2021 ambulatory Yannick Velázquez Other [email or web address] Other Start: 12-24-2021 Telephone encounter Yannick Velázquez [facility] [place] Start: 12-11-2021 End: 12-11-2021 ambulatory Yannick Velázquez Other [email or web address] Other Start: 12-11-2021 Office outpatient vi sit 15 minutes Yannick Velázquez [facility] [place] Start: 12-11-2021 Telephone encounter Yannick Velázquez [facility] [place] Start: 09-10-2021 End: 09-10-2021 ambulatory Yannick Velázquez Other [email or web address] Other Start: 09-10-2021 Office outpatient vi sit 15 minutes Yannick Velázquez [facility] [place] Start: 08-01-2021 End: 08-01-[address] YANNICK VELÁZQUEZ Facility: Start: 06-11-2021 End: 06-11-2021 ambulatory Yannick Velázquez Other [email or web address] Other Start: 06-11-2021 Office outpatient vi sit 15 minutes Yannick Velázquez [facility] [place] Start: 09-06-2020 End: 09-06-2020 Patient encounter procedure David Keane Work Phone: Urology Comment on above: Dysuria; [...] con DO Yannick Velázquez Work Phone: Start: 05-22-2022 Microscopic observat ion [Identifier] in Cervix by Cyto stain Pcr Accident Report Clerk Start: 01-28-2022 X-ray of right foot BEAD SUPERVISOR -C Shara He Work Phone: Start: 09-06-2020 Urnls dip stick/tabl et rgnt auto w/o microscopy David Keane Work Phone: Plan of Treatment Date Care Activity Detail Author Start: 12-19-2026 DTaP,Tdap and Td Vac cines (2 - Td or Tdap) DTaP,Tdap and Td Vaccines (2 - Td or Tdap) [facility] Start: 12-19-2026 Urine microalbumin profile DTaP,Tdap,Td Vaccine (2 - Td or Tdap) [facility] Start: 05-22-2025 Screening for malign ant neoplasm of cervix Pap Smear [facility] Start: 09-29-2024 Adult BMI Screening Adult BMI Screen ing [facility] Start: 09-29-2024 Tobacco Screening Tobacco Screening [facility] Start: 05-25-2024 End: 05-25-2024 Patient encounter procedure 05/25/2024 2:30 PM EST Office Visit [facility] [place] [address] [place] [address] [facility] [place] Start: 03-07-2024 Influenza vaccination Influenz a Vaccine (Season Ended) [facility] Start: 01-05-2024 End: 01-05-2024 Patient encounter procedure 01/05/2024 9:00 AM EDT Appointment [facility] - Mammogram [facility] [address] [place] [id number] [facility] Start: 01-03-2024 Screening for malign ant neoplasm of breast Mammogram Screening [facility] Start: 09-30-2023 End: 09-29-2024 US Pelvis transabdominal and transvaginal Ultrasound pelvic with transvaginal Imaging Routine PMB (postmenopausal bleeding) Expected: 09/30/2023, Expires: 09/29/2024 [facility] Work Phone: Comment on above: Expected: 09/30/2023 , Expires: 09/29/2024 Start: 07-07-2023 Behavioral Health Screening Behavioral Health Screening [facility] Start: 03-07-2023 Covid-19 Vaccine ( season) Covid-19 Vaccine ( season) [facility] Start: 03-07-2023 Influenza vaccination Influenza Vacc ine [facility] Start: 03-07-2020 Influenza vaccination INFLUENZA (#1) [facility] Start: 2016 Administration of varicella zoster vaccine Zoster (Shingles) Vaccine (1 of 2) [facility] Start: 2016 Screening for malign ant neoplasm of colon [facility] Start: 2016 SHINGRIX VACCINE (1 of 2) PATEL GRIX VACCINE (1 of 2) [facility] Start: 10-11-2011 DIABETES SCREEN DIABETES SCREEN [facility] Start: 10-11-2011 Diabetes Screening Diabetes Screenin g [facility] Start: 10-11-2011 Lipid panel Lipid Screening [facility] Start: 10-11-2011 LIPID SCREEN LIPID SCREEN [facility] Start: 10-11-2011 Screening for malign ant neoplasm of colon [facility] Start: 2006 Mammography MAMMOGRAM [facility] Start: 1996 HPV TESTING HPV TESTING [facility] Start: 1996 Screening for malign ant neoplasm of cervix HPV Testing [facility] Start: 10-11-1987 PAP TESTING PAP TESTING [facility] Start: 10-11-1987 Screening for malign ant neoplasm of cervix Pap Testing [facility] Start: 1985 Hepatitis B Vaccine (1 of 3 - 19+ 3-dose series) Hepatitis B Vaccine (1 of 3 - 19+ 3-dose series) [facility] Start: 1985 Urine microalbumin profile DTAP,TDAP,TD (1 - Tdap) [facility] Start: 1984 HEPATITIS C SCREENING HEPATITIS C [facility] Start: 1984 Hepatitis C screening Hepatitis C [facility] Start: 1984 HIV SCREENING HIV SCREENING [facility] Start: 1984 HIV screening HIV Screening [facility] Start: 1978 Adult depression screening assessment DEPRESSION SCREENING [facility] Patient Education Radiculopathy (DC) [facility] Work Phone: Patient referral [facility] Work Phone: Immunizations Immunization Date Immunization Notes Care Provider Sindy sorensen 12-19-2016 tetanus toxoid, reduced diphtheria toxoid, and acellular pertussis vaccine, adsorbed Yannick Velázquez Other [facility] NEGATED: Highlighted row has not occurred!06-11-2021 influenza, seasonal, injectable Patient Objection Yannick Velázquez Other [email or web address] Other Payers Date Payer Category Payer Self-pay [id number] 2014 Unknown 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 [id number] 2014-Present PPO [id number] 2014 Unknown 1966 Unknown [id number] 1966 Unknown [id number] 1966 Unknown [id number] 1966 Unknown [id number] 1966 Unknown [id number] 1966 Unknown [id number] 1966 Unknown [id number] 1959 Unknown [id number] Unknown [id number] Unknown [id number] Unknown [id number] Unknown [id number] Social History Date Type Detail Facility Start: 09-06-2020 End: 10-21-2023 Tobacco smoking status NHIS Never smoker [facility] Start: 09-06-2020 End: 10-21-2023 Tobacco use and exposure Never used [facility] Start: 09-06-2020 End: 10-21-2023 Alcohol intake Current drinker of alcohol (finding) [facility] Start: 09-06-2020 End: 10-20-2023 Alcohol intake [facility] Start: 1965 Sex Assigned At Female C [facility] Exposure to SARS-CoV -2 (event) Not sure [facility] Start: 07-02-2018 End: 09-06-2020 Sex Assigned At [facility] Frequency of Alcohol Consumption Never [facility] Start: 05-08-2022 Alcohol Comment twice a month [facility] Start: 1965 Sex Assigned At Not on file P [facility] Start: 09-06-2020 Gender identity Identifies as female gender (finding) [facility] Start: 09-06-2020 Sexual orientation Heterosexual (fin ding) [facility] Clinical Notes 06-11-2021 to 10-23-2023 Telephone Encounter - Frannie Hernandez RN - 10/23/2023 11:20 AM EDTLedy Emanuel APRN-TRACEY - 09/30/2023 10:15 AM EDT Note Date & Type Note Facility 10-23-2023 Miscellaneous Notes Formattin g of this note might be different from the original. KAYLEEN 10/21/23- unsigned note Additional info patient wanted to share documented in this encounter [facility] 09-30-2023 History of Presen t illness Narrative Edna Sultana is a 57 y.o.female. No LMP recorded. Patient is postmenopausal.. She presents c/o light yellow discharge for about 2 weeks on panties then over the weekend stuck her finger in her vagina and then had some bleeding for the day. Denies itching or odor. Denies post coital bleeding. Current contraception:bilateral tubal ligation OB History 2 Para 2 Term 2 AB Living 3 SAB IAB Ectopic Multiple 1 Live Births MEDICAL HX Past Medical History: Diagnosis Date Basal cell carcinoma 03/2015 History of anemia History of transfusion Vitamin D deficiency SURGICAL HX Past Surgical History: Procedure Laterality Date SECTION 05/20/2006 COLONOSCOPY N/A 07/03/2018 Performed by Osmany Dunn MD at [facility] TONSILLECTOMY TUBAL LIGATION FAMILY HX Family History Problem Relation Age of Onset Cancer Paternal Grandfather bladder Ovarian cancer Maternal Grandmother Prostate cancer Maternal Grandfather Multiple myeloma Father Dementia Mother No Known Problems Brother Obesity Sister No Known Problems Sister No Known Problems Sister Breast cancer Neg Hx MEDS Current Outpatient Medications Medication Sig Dispense Refill ALPRAZolam (XANAX) 0.25 mg tablet Take 0.5 tablets (0.125 mg total) by mouth Three times daily as needed. cholecalciferol 1,000 units tablet Take 1 tablet (1,000 Units total) by mouth in the morning. magnesium oxide (MAGOX) 400 mg tablet Take 1 tablet (400 mg total) by mouth in the morning. NON FORMULARY Vitamin B 12 INJECTIONS potassium chloride (K-TAB,KLOR-CON) 10 MEQ CR tablet Take 1 tablet (10 mEq total) by mouth in the morning and 1 tablet (10 mEq total) before bedtime. sertraline (ZOLOFT) 25 mg tablet Take 0.5 tablets (12.5 mg total) by mouth in the morning. No current facility-administered medications for this visit. ALLERGIES Allergies Allergen Reactions Adhesive Itching and Rash Review of Systems A comprehensive review of systems was negative. Physical Exam General: alert, appears stated age, and cooperative. . . Thyroid Vulva: normal Vagina: Atrophic: PH = 7.5 - no clue cells, no yeast or no trich- no apparent bleeding today. Possible trauma when she stuck her finger in vagina Cervix: multiparous appearance Uterus: normal size Adnexa: normal adnexa There were no vitals taken for this visit. Assessment 57 yo Vaginal atrophy PMB 1 time after stuck finger in vagina Discussed risks of uterine cancer when there is post menopausal bleeding. Discussed need for pelvic US if she has any other bleeding. dyspareunia Plan Wet prep - negative Vaginal estrogen cream. Discussed risks and benefits of oral estrogen vs vaginal estrogen Pelvic ultrasound JAMES MILNER APRN-CNM 09/30/23 1234 documented in this encounter [facility] Evaluation note Authored September 17, 2023 4:4 1pm The above note written by __ _Prabhjot Tafoya____ acting as human recorder, note dictated by Dr. Layne .I performed the above HPI, ROS, and Examination. I formulated and dictated the treatment plan and was present for entire encounter. Yannick Velázquez D.O. [facility] Work Phone: [phone] 818-186512-12-2023 Evaluation note* Encounter Date Diagnosis Assessment Notes Treatment Notes Treatment Clinical Notes Jun, Lumbar degenerative disc disease (ICD-10 [...] 5 MG tablets at a pharmacy in [place] to help her wean off the medication. [...] She voices that she is seeing a crutching contractor on 06-19-23 and has an MRI of the right foot. She thinks she may have a neuroma of the right foot because she has a ball on the bottom of her right foot. Jun, Other 10:05 AM - 10:1 7 AM [email or web address] Other 11-21-2023 Note Yannick Velázquez DO [address], [place] [address] Re: Edna Rodriguezht Date of Visit: 05/27/2023 Dear Yannick Velázquez DO, Let me know if you have any questions or concerns. Sincerely, MARTIN Moreno MD Providers: The following document(s) were included in the letter: May 27, 2023 11:20:24 EST - (05/27/2023) Neurosurgery Office Visit Note [facility]11-16-2023 Evaluation note* Encounter Date Diagnosis Assessment Notes Treatment Notes Treatment Clinical Notes May, Anxiety (ICD-10 - F41.9) When she gets home from work she is restless, does not know what to do with herself. She does not want to cook helper juice. She did increase her Zoloft to 1 [...] any issue with her parathyroid. 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 May, Other She has an appointment with Avery her homeopathic doctor who always tells her that her Cortisol level is a mess . 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 termite (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 therapy (ICD-10 - Z79.899) Apr, Vitamin B12 deficiency (ICD-10 - E53.8) Apr, Muscle cramp (ICD-10 - R25.2) Apr, Paresthesia (ICD-10 - R20.2) Apr, Vitamin D deficiency (ICD-10 - E55.9) Apr, Fatigue (ICD-10 - R53.83) [facility] [email or web address] Other 2023 Evaluation note* Encounter Date Diagnosis Assessment Notes Treatment Notes Treatment Clinical Notes Apr, Vitamin B12 deficiency (ICD-10 - E53.8) Apr, Hypokalemia (ICD-10 - E87.6) [facility] [email or web address] Other 09-27-2023 Evaluation note* Encounter Date Diagnosis Assessment Notes Treatment Notes Treatment Clinical Notes Mar, Anxiety (ICD-10 - F41.9) [email or web address] Other 09-13-2023 Evaluation note* Encounter Date Diagnosis Assessment Notes Treatment Notes Treatment Clinical Notes Mar, Lumbar pain (ICD-10 - M54.50) [email or web address] Other 09-13-2023 Evaluation note* Encounter Date Diagnosis [...] not want to use an inversion table. [facility] [email or web address] Other 08-09-2023 Evaluation note* Encounter Date Diagnosis Assessment Notes Treatment Notes Treatment Clinical Notes Feb, Lumbar pain (ICD-10 - M54.50) [email or web address] Other 08-02-2023 Evaluation note* Encounter Date Diagnosis Assessment Notes Treatment Notes Treatment Clinical Notes Feb, Lumbar pain (ICD-10 - M54.50) [facility] [email or web address] Other 07-18-2023 Evaluation note* Encounter Date Diagnosis [...] understanding and is agreeable to treatment plan. [email or web address] Other 07-05-2023 Evaluation note* Encounter Date Diagnosis Assessment Notes Treatment Notes Treatment Clinical Notes Jan, Thyroid nodule (ICD-10 - E04.1) [facility] [email or web address] Other 06-30-2023 Evaluation note* Encounter Date Diagnosis Assessment Notes Treatment Notes Treatment Clinical Notes Dec, Thyroid nodule (ICD-10 - E04.1) [email or web address] Other 06-16-2023 Evaluation note* Encounter Date Diagnosis [...] done when it comes to her town. [facility] [email or web address] Other 03-13-2023 Evaluation note* Encounter Date Diagnosis Assessment Notes Treatment Notes Treatment Clinical Notes Sep, Anxiety (ICD-10 - F41.9) [place] [employer] Other 03-13-2023 Evaluation note* Encounter Date Diagnosis [...] continue with it today. She saw a uro/manufacturing plant manager who referred her to physical therapy for pelvic floor therapy. They are going to see if Dr. Martinez feels her issue may be coming from her back. [facility] [email or web address] Other 02-23-2023 Evaluation note* Encounter Date Diagnosis Assessment Notes Treatment Notes Treatment Clinical Notes Aug, Lumbar degenerative disc disease (ICD-10 - M51.36) [email or web address] Other 02-01-2023 Evaluation note* Encounter Date Diagnosis Assessment Notes Treatment Notes Treatment Clinical Notes Aug, Spinal stenosis (ICD-10 - M48.00) Aug, DDD (degenerative disc disease), lumbar (ICD-10 - M51.36) Aug, Lumbar pain (ICD-10 - M54.50) [email or web address] Other 01-13-2023 Evaluation note* Encounter Date Diagnosis [...] symptoms. She did see a surgeon in [place] and he told her that she was [...] noticed it turn flaky. She asked her assistant basketball coach who told her she didn't know what [...] (ICD-10 - Z80.41) She will see her manufacturing plant manager next week to discuss a hysterectomy. She would like to have a CA-125 test done. Her grandmother had ovarian cancer. She voices that she would request a total hysterectomy if she is going to have a hysterectomy. 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 This has only happened a few times. She does feel this when she bends backwards on exam today. [email or web address] Other 12-28-2022 Evaluation note* Encounter Date Diagnosis Assessment Notes Treatment Notes Treatment Clinical Notes Jun, Lumbar pain (ICD-10 - M54.50) Jun, Lumbar degenerative disc disease (ICD-10 - M51.36) She is not having any radicular symptoms and no urinary tract symptoms. She feels that this is may be related to constipation and would like an order sent to [facility] for an x-ray to see how much stool is present. She is going to see Marty Pugh her physical therapist in [place] next week and hopefully this will help. She has responded well in the past to Medrol Dosepak and would like to have this available to take if desired. side effects/risks/benef its of medication reviewed. Jun, Constipation (ICD-10 - K59.00) Jun, Other 09:15 AM - 09:22 AM [facility] [email or web address] Other 12-19-2022 Evaluation note* Encounter Date Diagnosis [...] the medication. 2:50 PM - 2:58 PM [facility] [email or web address] Other 11-03-2022 Evaluation note* Encounter Date Diagnosis Assessment Notes Treatment Notes Treatment Clinical Notes May, Cystitis (ICD-10 - N30.90) [facility] [email or web address] Other 10-05-2022 Evaluation note* Encounter Date Diagnosis [...] likely fighting something viral a month ago. [facility] [email or web address] Other 09-20-2022 Evaluation note* Encounter Date Diagnosis [...] will return to see the neurosurgeon in [place] for her back. Mar, Other She voices that she had lab drawn through her employer to include cholesterol, she will provide the office with a copy of her results. 8:26 AM - 8:40 AM [email or web address] Other 08-12-2022 Evaluation note* Encounter Date Diagnosis Assessment Notes Treatment Notes Treatment Clinical Notes Feb, Anxiety (ICD-10 - F41.9) [email or web address] Other 07-25-2022 Evaluation note* Encounter Date Diagnosis [...] we will help you get into specialist. [email or web address] Other 07-08-2022 NotePROCEDURE: XR KNEE LT 4V [...] Electronically authenticated by: JENNIFER NICOLAS Date: 2022-01-11 12:09[facility]07-08-2022 Evaluation note* Encounter Date Diagnosis Assessment Notes Treatment Notes Treatment Clinical Notes Jan, Knee pain, left (ICD-10 - M25.562) [facility] [email or web address] Other 07-06-2022 Evaluation note* Encounter Date Diagnosis [...] and is not winded when she runs. [facility] [facility] [email or web address] Other 06-07-2022 Evaluation note* Encounter Date Diagnosis Assessment Notes Treatment Notes Treatment Clinical Notes Dec, Anxiety (ICD-10 - F41.9) [facility] [email or web address] Other 06-07-2022 Evaluation note* Encounter Date Diagnosis [...] ts of medication were reviewed. Dec, Other [facility] (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 therapy (ICD-10 - Z79.899) I [...] copy of this once it is done. [facility] [email or web address] Other 03-07-2022 Evaluation note* Encounter Date Diagnosis [...] She is considering seeing a pharmacist from [facility] to discuss a different version of Cyanocobalamin that does not contain cyanide, I did advise her that if she does this they can send us a prescription request to sign. Sep, Other She voices that her hair is falling out from having had COVID-19 but it seems to be slowing down. [facility] [email or web address] Other 12-06-2021 Evaluation note* Encounter Date Diagnosis [...] drinking alot of water and began drinking [place] artichoke and feels her symptoms resolved. She [...] to continue with what she is doing. [employer] [facility] [email or web address] Other Evaluation noteNo [employer]Nort [employer] Other Evaluation noteNo assessment information available [facility] Work Phone: Evaluation note* Diagnosis PMB (postmenopausal bleeding)- Primary Postmenopausal bleeding Vaginal atrophy Postmenopausal atrophic vaginitis [facility] - [facility]* Type Description Date [...] urethral dilatio n - Dr. Zepeda 02-17-2020 Hospitalization History childbirth 2003 200 6 Hospitalization History see above [facility] [email or web address] Other History general Narrative - Reported* Type [...] 2003 200 6 Hospitalization History see above [email or web address] Other [employer] general Narrative - Reported* Type Description Date [...] enosis and Herniated Disc L4-L5 ; Dr. Czaares Medical History anemia Medical History anxiety Surgical History 2005 Surgical History bilateral tailor bunionectiomy Surgical History Tonsicllectomy Surgical History tubaligation Surgical History laparascopy to check for adhesi ons from Surgical History Cystoscopy and urethral dilatio n - Dr. Zepeda 02-17-2020 Surgical History Colonoscopy, Dr. Dunn, needs repeat in 2027 2017 Hospitalization History childbirth 2003 200 6 Hospitalization History see above [email or web address] Other History general Narrative - Reported* Type [...] detachment in the left eye Surgical History 2005 Surgical History bilateral tailor bunionectiomy Surgical History Tonsicllectomy Surgical History tubaligation Surgical History laparascopy to check for adhesi ons from Surgical History Cystoscopy and urethral dilatio n - Dr. Zepeda 02-17-2020 Surgical History Colonoscopy, Dr. Dunn, needs repeat in 2027 2017 Hospitalization History childbirth 2003 200 6 Hospitalization History see above [email or web address] Other InstructionsNot on filedocumented in this encounter [facility] for visit Narrativecontinued back pain, discuss multiple issues, [facility] [employer] Other Summary Purpose Family History Relationship Condition Age at Onset Recorded Date/T jacinta father Multiple myeloma Unknown grandparent Malignant neoplasm of prostate Unknown grandparent Malignant neoplasm of ovary Unknown grandparent Malignant neoplasm of urinary bladder Unk nown grandparent Pernicious anemia Unknown Relationship Condition Age at Onset Recorded Date/T jacinta father Multiple myeloma Unknown grandparent Malignant neoplasm of prostate Unknown grandparent Malignant neoplasm of ovary Unknown grandparent Malignant neoplasm of urinary bladder Unk nown grandparent Pernicious anemia Unknown father Unknown Multiple myeloma Unknown Malignant neoplasm Unknown grandparent History of malignant neoplasm of prostate Unknown Unknown grandparent Unknown Diabetes mellitus Unknown Malignant neoplasm of urinary bladder Unk nown Not Specified Unknown Hypertension Unknown Family history of mental disorder Unknown Advance Directives Advance Directive Response Recorded Date/ Time Advance Directives No March 8:56am Advance Directive Response Recorded Date/ Time Advance Directives No March, 2016 7:56am Advance Directive Response Recorded Date/ Time Advance Directives No September 16, 2 024 4:06pm Documents on File Type Date Recorded Patient Rehabilitation Supervisor Expl anation Living Will History of Present Illness * David Keane - 09/06/2020 2:00 PM EST [facility] PATIENT HISTORY AND PHYSICAL EXAM PATIENT INFO: Edna Sultana is a 54 year old female. REFERRING M.D.: Yannick Velázquez, DO [address] [place] [address] Consultation requested by Gisel for an opinion [...] bulge. no blood in urine QUESTIONNAIRE: Questionnaire: [facility] Base Question Answer [...] & discussed the above plan. Signed: David Keane MD [facility] documented in this encounter Assessments Diagnosis Dysuria Cystocele with prolapse Nocturia Chief Complaint and Reason for Visit Chief Complaint S99.921A Chief Complaint m48.00 m51.35 m54.50 Chief Complaint bruit, m79.89 Chief Complaint bruit, m79.89 back pain both feet numb Chief Complaint bruit, m79.89 back pain both feet numb g89.29 m51.36 Chief Complaint med refill/upper rt side pain Reason for Visit Anxiety Constipation Laryngitis Vitamin B12 deficiency nervous system syndrome Reason for Referral Reason appt pt needs cons ult to discuss twitching, numbness right foot, neuropathy Diagnosis 1 Twitching (R25.3) Referral Organization [facility] Referring Provider First Name Yannick Referring Provider Last Name Gisel Referring Provider Specialty Family Prac loretta Referred Organization [facility] Referred Provider Nathen Hoover Referred Address [address] [place],[address] Referred Provider Specialty Neurology Referral Priority Routine [...] 1 Thyroid nodule (E04. 1) Referral Organization [facility] Family Medicnolberto Gupta Referring Provider First Name Yannick Referring Provider Last Name Gisel Referring Provider Specialty Family Prac loretta Referred Organization [facility] Referred Provider Reza Gorman Referred Address ,[place], [place],[address] Referred Provider Specialty Ear, Nose an d [...] Lumbar degenerative disc disease (M51.36) Referral Organization [facility] Andreas Gupta Referring Provider First Name Yannick Referring Provider Last Name Gisel Referring Provider Specialty [facility] loretta Referred Organization [facility] u[facility]gery Referred Provider Victorina Martinez Referred Address [address] [address] ,[place], [place],[address] Referred Provider Specialty Neurological Surgery Referral Priority Routine Referral Appointment Date 2022-09-18 General Notes Victorina Cassidy 08/29/2022 01:50:55 PM > referral sent p2p. pt understands she will be contacted to schedule this appt. Victorina Cassidy 08/30/2022 10:55:52 AM > appt scheduled on 09/18/22 at 8:20am Additional Source Comments INFORMATION SOURCE (unrecogn ized section and content) DATE CREATED AUTHOR 11/17/2019 [facility] DATE CREATED AUTHOR AUTHOR'S ORGANIZ ATION 07/02/2020 [facility] DATE CREATED AUTHOR AUTHOR'S ORGANIZ ATION 07/06/2022 [facility] DATE CREATED AUTHOR AUTHOR'S ORGANIZ ATION 03/08/2023 [facility] DATE CREATED AUTHOR AUTHOR'S ORGANIZ ATION 05/29/2023 [facility] DATE CREATED AUTHOR AUTHOR'S ORGANIZ ATION 08/01/2023 [facility] DATE CREATED AUTHOR AUTHOR'S ORGANIZ ATION 10/01/2023 [facility] DATE CREATED AUTHOR AUTHOR'S ORGANIZ ATION 10/22/2023 [facility] Source Comments (unrecognize d section and content) In the event this informatio n is protected by the Federal Confidentiality of Alcohol and Drug Abuse Patient Records regulations: The Federal rules restrict any use of the information to criminally investigate or prosecute any alcohol or drug abuse patient.[facility] the event this information is protected by the Federal Confidentiality of Alcohol and Drug Abuse Patient Records regulations: The Federal rules restrict any use of the information to criminally investigate or prosecute any alcohol or drug abuse patient.[facility] Reason for Visit (unrecogniz ed section and content) Reason Comments Consult bladder prolapse, tw daron, uncomfortable, pressure with constipation Reason Comments Postmenopausal bleeding Stephanie Perrin MA - 09/06/2020 1:40 PM EST Nursing Notes (unrecognized section and content) PVR 0 documented in this encounter Care Teams (unrecognized sec tion and content) Team Status: Active Member Role Status Dates Yannick Velázquez , Primary Care Provider Active Team Status: Inactive Member Role Status Dates Yannick Velázquez DO Primary Care Provider, Attending Pro vider Active Team Status: Inactive Member Role Status Dates SELAM Mahoney Attending Provider Active PHYSICIAN NO FAMILY Primary Care Provider Active Team Status: Active Member Role Status Dates PHYSICIAN NO FAMILY Primary Care Provider Active Team Status: Inactive Member Role Status Dates Yannick Velázquez DO Primary Care Provider Active Pelon Blandon APRN Emergency Provider Active Team Status: Inactive Member Role Status Dates Yannick Velázquez DO Primary Care Provider Active Victorina Martinez MD Attending Provider Active Team Status: Inactive Member Role Status Dates Yannick Velázquez DO Primary Care Provide r, Attending Provider Active Start: September 17, 2023 End: September 17, 2023 [employer] Operator 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 [employer] provides no warranty or guarantee of the accuracy or completeness of information in this document.
[2023-10-25 06:49] VITALS: BP 112/78; PULSE 89; TEMP 36.8; O2SAT 98; BMI 22.2
[2023-10-25 07:07] LABS: Bilirubin Urine COLOR INTERFERENCE (NEGATIVE); Blood Urine COLOR INTERFERENCE (NEGATIVE); Clarity Urine CLEAR (CLEAR); Color Urine ORANGE (YELLOW); Glucose Urine UA COLOR INTERFERENCE mg/dL (NEGATIVE); Ketones Urine COLOR INTERFERENCE mg/dL (NEGATIVE); Leukocyte Esterase Urine COLOR INTERFERENCE (NEGATIVE); Nitrite Urine COLOR INTERFERENCE (NEGATIVE); Protein Urine COLOR INTERFERENCE mg/dL (NEG/TRACE); Specific Gravity Urine 1.025 (1.005-1.025); Urobilinogen Urine COLOR INTERFERENCE EU/dL (0.2-1.0); pH Urine COLOR INTERFERENCE (5.0-9.0)
--- NOTE | 2023-10-25 07:10 | ED.FEMALEGU1 ---
HPI - Female Genitourinary General Chief complaint: Urogenital-Female Stated complaint: Possible UTI Time Seen by Provider: 10/25/23 06:58 Source: patient Source comment: per pt she has hx of uti and woke up this morning with urinary urgency. Mode of arrival: walk-in History of Present Illness HPI Narrative: 58-year-old female presents for possible UTI. She woke up today and has spasms in her bladder. She states this happened once before and she was diagnosed with a strep infection and amoxicillin made it go away. No gross hematuria. She took Pyridium today but it did not help. No flank pain fever vomiting or gross hematuria. Related Data Home Medications ?Medication ?Instructions ?Recorded ?Confirmed methylprednisolone 4 mg tablets in mg 02/11/23 a dose pack sertraline 25 mg tablet (Zoloft) 12.5 mg PO DAILY 02/11/23 02/11/23 Previous Rx's ?Medication ?Instructions ?Recorded hydrocodone 5 mg-acetaminophen 325 1 tab PO Q6H PRN pain 5 days #20 10/25/23 mg tablet tabs ondansetron 4 mg disintegrating 4 mg PO Q6H PRN nausea and 10/25/23 tablet vomiting #20 tabs tamsulosin 0.4 mg capsule (Flomax) 0.4 mg PO DAILY #7 caps 10/25/23 Allergies Allergy/AdvReac Type Severity Reaction Status Date / Time adhesive Allergy Intermediate Verified 10/25/23 06:57 Review of Systems ROS Narrative A ten point review of systems is negative except as noted above. PFSH PFSH Social History Smoking status: Never smoker Exam Narrative Exam Narrative: Nurses note and vital signs reviewed and patient is not hypoxic. General: The patient appears well and in no apparent distress. Patient is resting comfortably on cart. Skin: Warm, dry, no pallor noted. There is no rash noted. Head: Normocephalic, atraumatic Eye: Normal conjunctiva, no drainage Ears, Nose, Mouth, and Throat: oral mucosa is moist. Nares patent. Cardiovascular: Regular Rate and Rhythm Respiratory: Patient is in no distress, no accessory muscle use, lungs are clear to auscultation, no wheezing, rales or rhonchi Back: non-tender, no CVA tenderness bilaterally to percussion. GI: Soft and nontender Musculoskeletal: The patient has no evidence of calf tenderness, no pitting edema, symmetrical pulses noted bilaterally Neurological: A&O, normal speech Psychiatric: Cooperative Constitutional Vital Signs, click to edit/add: Last Vital Signs Temp 98.2 F 10/25/23 06:49 Pulse 89 10/25/23 06:49 Resp 16 10/25/23 06:49 BP 112/78 10/25/23 06:49 Pulse Ox 98 10/25/23 06:49 O2 Del Method Room Air 10/25/23 06:49 Course Vital Signs Vital signs: Vital Signs Temperature 98.2 F 10/25/23 06:49 Pulse Rate 89 10/25/23 06:49 Respiratory Rate 16 10/25/23 06:49 Blood Pressure 112/78 10/25/23 06:49 Pulse Oximetry 98 10/25/23 06:49 Oxygen Delivery Method Room Air 10/25/23 06:49 Temperature 98.2 F 10/25/23 06:49 Pulse Rate 89 10/25/23 06:49 Respiratory Rate 16 10/25/23 06:49 Blood Pressure 112/78 10/25/23 06:49 Pulse Oximetry 98 10/25/23 06:49 Oxygen Delivery Method Room Air 10/25/23 06:49 MDM - Female Genitourinary MDM Narrative Medical decision making narrative: 4 mm distal kidney stone is identified. She is able to be discharged home and is referred to urology. Treatment diagnosis and follow-up were discussed with the patient. Differential Diagnosis Differential diagnosis: Likely urinary tract infection and other (Kidney stone) Lab Data Attestation: I reviewed the patient's lab results. Labs: Lab Results 10/25/23 Range/Units 06:56 Urine Color [place] A (YELLOW) Urine Clarity Clear (CLEAR) Urine pH Color interference A (5.0-9.0) Ur Specific [place] 1.025 (1.005-1.025) Urine Protein Color interference A (NEG/TRACE) mg/dL Urine Glucose (UA) Color interference A (NEGATIVE) mg/dL Urine Ketones Color interference A (NEGATIVE) mg/dL Urine Occult Blood Color interference A (NEGATIVE) Urine Nitrite Color interference A (NEGATIVE) Urine Bilirubin Color interference A (NEGATIVE) Urine Urobilinogen Color interference A (0.2-1.0) EU/dL Ur Leukocyte Esterase Color interference A (NEGATIVE) Urine RBC 5-10 A (0-2) #/HPF Urine WBC 0-2 A (NONE SEEN) #/HPF Ur Squamous Epith Cells None seen (NONE/RARE) #/LPF Urine Crystals None seen (None Seen) #/HPF Urine Bacteria Trace A (NONE SEEN) #/HPF Urine Casts None seen (NONE SEEN) #/LPF Urine Mucus None seen (NONE SEEN) Imaging Data CT scan - abdomen: Radiologist's impression: ITS Impressions Abdomen/Pelvis CT 10/25/23 07:22 IMPRESSION: 1. Partially obstructing 4 mm stone within distal right ureter resulting in mild hydroureter and hydronephrosis. 2. Small pericardial effusion; grossly stable. Electronically authenticated by: JENNIFER NICOLAS Date: 10/25/2023 07:55 Discharge Plan Discharge Stand Alone Forms: Portal Instructions Chief Complaint: Urogenital-Female Clinical Impression: Kidney stone Patient Disposition: Home, Self-Care Time of Disposition Decision: 08:29 Condition: Good Mode of Transportation: Private Vehicle Prescriptions / Home Meds: New hydrocodone-acetaminophen 5-325 mg tablet 1 tab PO Q6H PRN (Reason: pain) 5 Days Qty: 20 0RF tamsulosin [Flomax] 0.4 mg capsule 0.4 mg PO DAILY Qty: 7 0RF ondansetron 4 mg tablet,disintegrating 4 mg PO Q6H PRN (Reason: nausea and vomiting) Qty: 20 0RF No Action methylprednisolone 4 mg tablets,dose pack sertraline [Zoloft] 25 mg tablet 12.5 mg PO DAILY Print Language: [place] Instructions: Kidney Stones (ED), How to Strain Your Urine (ED) Referrals: YANNICK BATRES [Primary Care Provider] - 1 week Chandra Macdonald MD [Physician] - 1 week
[2023-10-25 07:16] LABS: Bacteria Urine TRACE #/HPF (NONE SEEN); Cast Seen? NONE SEEN #/LPF (NONE SEEN); Crystals Seen? None Seen #/HPF (None Seen); Mucus Urine NONE SEEN (NONE SEEN); Squamous Epithelial Cell Urine NONE SEEN #/LPF (NONE/RARE); WBC Urine 0-2 #/HPF (NONE SEEN)
--- NOTE | 2023-10-25 07:22 | CT_ITS ---
[address] [address] Patient Name: BALA SULTANA MRN: [id number] date: 1965 Sex: F Assigned Patient Location: ER Current Patient Location: Accession/Order Number: [id number] Exam Date: 10/25/2023 07:32 Report Date: 10/25/2023 07:55 At the request of: MINNA ROMERO Procedure: CT abdomen pelvis wo con EXAMINATION: CT abdomen pelvis wo con HISTORY: r/o stone, right-side pain ; acute right flank pain, urgency COMPARISON: CT abdomen pelvis 02/11/2023 TECHNIQUE: Axial, Coronal, and Sagittal images were obtained without and/or with IV contrast as indicated by examination type. Dose reduction techniques were achieved by using automated exposure control and/or adjustment of mA and/or kV according to patient size and/or use of iterative reconstruction technique. FINDINGS: LUNG BASES: Small amount of pericardial fluid. Lung bases are clear. LIVER: Stable small hypodensity within posterior right hepatic lobe favoring a cyst. No enlargement, atrophy, suspicious density, or significant focal lesion. BILIARY: No dilatation or calcification. PANCREAS: No lesion, fluid collection, or abnormal duct dilatation. SPLEEN: No enlargement or focal lesion. ADRENALS: No mass or enlargement. KIDNEYS: 4 x 4 by 3 mm stone within distal right ureter causing mild hydroureter and hydronephrosis. No additional urinary tract calculi. BOWEL/MESENTERY: No visible mass, obstruction, or bowel wall thickening. AORTA/VASCULAR: No aneurysm or dissection. RETROPERITONEUM: No mass or adenopathy. LYMPH NODES: No adenopathy. URINARY BLADDER: No visible focal wall thickening, lesion, or calculus. PELVIC ORGANS: No visible mass. Pelvic organs appropriate for patient age. ABDOMINAL WALL: No mass or hernia. BONES: No bony lesion or fracture. OTHER: Negative. CT/CT abdomen pelvis wo con IMPRESSION: 1. Partially obstructing 4 mm stone within distal right ureter resulting in mild hydroureter and hydronephrosis. 2. Small pericardial effusion; grossly stable. Electronically authenticated by: JENNIFER NICOLAS Date: 10/25/2023 07:55
== END 2023-10-25 08:40 | disposition home or self-care (01) ==
PROVIDERS: Emergency Provider Emergency Medicine; PCP Family Medicine
DX: N20.0 Calculus of kidney (principal); Z79.899 Other long term (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 therapy
CPT/HCPCS: 74176; 81001; 99284

== ENCOUNTER 2024-01-28 10:55 | Outpatient (OUT) | payer OTHER, SELFPAY ==
--- NOTE | 2024-01-28 10:58 | US_ITS ---
The [address] [address] Patient Name: BALA SULTANA MRN: [id number] date: 1965 Sex: F Assigned Patient Location: US Current Patient Location: US Accession/Order Number: [id number] Exam Date: 01/28/2024 10:59 Report Date: 01/28/2024 15:04 At the request of: REZA GORMAN Procedure: US thyroid EXAMINATION: US thyroid HISTORY: Nontoxic Multinodular Goiter E04.2 COMPARISON: 07/14/2023 TECHNIQUE: Sonographic images of the thyroid gland were obtained. FINDINGS: The right thyroid lobe is heterogeneous in echotexture measuring 4.9 x 1.6 x 1.4 cm. 4 focal nodules. The thyroid isthmus measures no focal nodules The left thyroid lobe is heterogeneous in echotexture measuring 5.0 x 1.7 x 1.4 cm. 1 focal nodules. The 2 most suspicious nodules: Nodule 1: Left thyroid lobe. 2.0 x 0.8 x 1.7 cm. Mixed solid and cystic, anechoic and hypoechoic, wide, smooth margins, punctate calcifications with artifact likely representing a colloid cyst Nodule 2: Right thyroid lobe. 0.6 x 0.4 x 0.4 cm. Solid, hypoechoic, wide, margins, no calcifications. TR 4 US/US thyroid IMPRESSION: Stable multinodular thyroid gland TI-RADS: The [employer] TI-RADS committee's white paper recommendations for thyroid lesions classified as TR4 (moderately suspicious) are listed below: > 1.0 cm. Follow-up ultrasound in 1, 2, 3, and 5 years. > 1.5 cm. FNA. J. Am Saul Radiol 2017;14:587-595. Electronically authenticated by: YANNICK REA Date: 01/28/2024 15:04
== END 2024-01-28 10:56 | disposition home or self-care (01) ==
LOC: US 10:55
PROVIDERS: PCP Family Medicine; Visit Provider Otolaryngology
DX: E04.2 Nontoxic multinodular goiter (principal)
CPT/HCPCS: 76536

== ENCOUNTER 2024-05-10 21:46 | Emergency (ER) | payer OTHER, SELFPAY ==
[2024-05-10 21:51] VITALS: BP 153/97; PULSE 91; TEMP 36.4; O2SAT 98; BMI 23.7
--- OUTSIDE RECORDS SUMMARY | 2024-05-10 21:51 | XMS_ITS | CCD ---
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 Name Role Phone Yannick Velázquez Primary Care Provider Yannick Velázquez Unavailable Yannick Velázquez Unavailable Shara Cutler Unavailable SELAM Cutler Attending Provider NO FAMILY, PHYSICIAN Primary Care Provider Unava ilable GISEL, DR LANIER Admitting Unavailable GIRKAREN, DR LANIER Attending Unavailable GIRVIN, DR LANIER Primary Care Unavailable GIRVIN, DR LANIER Consulting Unavailable MARIA ISABEL, DR JENNIFER Ennis Consulting Unavailable GIRVIN, DR LANIER Admitting Unavailable GIRVIN, DR LANIER Attending Unavailable GIRVIN, DR LANIER Primary Care Unavailable GIRVIN, DR LANIER Consulting Unavailable WEST, DR YANNIKC Louis Consulting Unavailable GIRVIN, DR LANIER Admitting [...] Unavailable DO Yannick Velázquez Primary Care Provider [phone] DO Yannick Velázquez Attending Provider [phone] Tonia Sandoval Unavailable SHER Blandon Emergency Provider [phone] MD Victorina Martinez Attending Provider Yannick Velázquez Primary Care Unavailable Victorina Martinez Admitting Unavailable Victorina Martinez Attending Unavailable Yannick Velázquez Admitting Unavailable Yannick Velázquez Primary Care Unavailable Yannick Velázquez Attending Unavailable Yannick Velázquez Primary Care Unavailable Yannick Velázquez Attending Unavailable Yannick Velázquez Admitting Unavailable Yannick Velázquez Primary Care Unavailable Pelon Blandon Admitting Unavailable Pelon Blandon Attending Unavailable Yannick Velázquez DO Primary Care Unavailab Farrukh Reinoso III, MD Attending U navailable Yannick Velázquez DO Primary Care Provider YANNICK VELÁZQUEZ Referring Unavailable YANNICK VELÁZQUEZ Primary Care Unavailable Yannick Velázquez DO Primary Care Provider Yannick Velázquez DO Unavailable [phone] Yannick Velázquez DO Primary Care Provider AKBAR SMITH Referring Unavailable YANNICK VELÁZQUEZ Primary Care Unavailable AKBAR SMITH Attending Unavailable AKBAR SMITH Referring Unavailable YANNICK VELÁZQUEZ Primary Care Unavailable ABIODUN CASTANO Referring Unavailable YANNICK VELÁZQUEZ Primary Care Unavailable ABIODUN CASTANO Referring Unavailable YANNICK VELÁZQUEZ Primary Care Unavailable ABIODUN CASTANO Attending Unavailable YANNICK VELÁZQUEZ Primary Care Unavailable JANNA GILMAN H Referring Unavailable YANNICK VELÁZQUEZ Primary Care Unavailable EYAD, ABIODUN Mcleod Referring Unavailable GILMAN, JANNA H Attending Unavailable YANNICK VELÁZQUEZ Primary Care Unavailable ABIODUN CASTANO Attending Unavailable YANNICK VELÁZQUEZ Primary Care Unavailable ABIODUN CASTANO Referring Unavailable YANNICK VELÁZQUEZ Primary Care Unavailable REZA GORMAN Attending Unavailable REZA GORMAN Attending Unavailable SUZANNE GEE Attending Unavailable Yannick Velázquez MD Primary Care Provider [phone] Yannick Velázquez Referring Unavailable Florentin NEVILLE Attending Unavailable Yannick Velázquez Primary Care Physician Allergies Allergy Classification Reported Allergen(s) Allergy Type Date of Onset Reaction(s) Facility (15 sources) Adhesive Tape-Silicones; Translations: [ADHESIVE TAPE-SILICONES] Drug Allergy 09-07-19 21 Rash, Hives [facility] (20 sources) Nitrofurantoin; Translations: [Macrobid] Drug Allergy Diarrhea (finding) [facility] Repository (20 sources) steri-strips Propensity to adverse reactions rash [facility] [employer] Other (3 sources) Adhesive bandage; Translations: [Adhesive Bandage] Drug allergy (disorder) 12-17-19 19 Eruption of skin (disorder) [facility] Repository (20 sources) NITROFURANTOIN, MACROCRYSTALS / Nitrofurantoin, Monohydrate Drug Allergy diarrhea [facility] [employer] Other (1 source) steri stips; Translations: [steri stips] Propensity to adverse reactions (disorder) [facility] Repository (4 sources) Adhesive Tape Allergy to substance 09-17-19 rash [facility] (7 sources) Nitrofurantoin Drug Allergy 09-17-19 diarrhea [facility] (7 sources) Adhesive agent; Translations: [ADHESIVE] Propensity to adverse reactions to drug 05-20-20 06 Itching, Rash, Swelling [facility] (4 sources) Fluorouracil-Adhe sive Bandage; Translations: [FLUOROURACIL-ADH ESIVE BANDAGE] Drug Allergy 12-17-19 [address] [facility] (3 sources) Wound Dressing Adhesive Drug Allergy 01-10-20 23 Rash [facility] Healthcare Work Phone: Medications Current Medications Medication Drug Class(es) Dates Sig (Normalized) Sig (Original) amoxicillin 875 mg oral tablet (4 sources) Penicillin-class Antibacterial Start: 12-24-2021 take 1 tablet by mouth every twelve hours Amoxicillin 875 MG 1 tablet Orally Twice a day Dec, Active b complex-folic acid tablet (3 sources) take 1 tablet by mouth in the morning b complex-folic acid tablet Take 1 tablet by mouth in the morning. Active BD Luer-Chasity Syringe 25G X 5/8 3 ML (20 sources) BD Luer-Chasity Syri nge 25G X 5/8 3 ML USE DIRECTED WITH INJECTION Active BD Luer-Chasity Syri nge 25G X 5/8 3 ML USE DIRECTED WITH INJECTION for 28 days Active BD Luer-Chasity Syri nge 25G X 5/8 3 ML USE DIRECTED WITH B12 INJECTION Active cholecalciferol 0.025 mg chewable tablet (10 sources) Vitamin D Start: 11-09-2019 take 1 tablet by mouth once daily Cholecalciferol (Vitamin D3) (Vitamin D3) 25 mcg (1,000 unit) Tablet,Chewable Active 1000 UNIT PO Daily November 09, 2019 12:00am take 1 tablet by mouth in the mo rning cholecalciferol 1,000 units tablet Take 1 tablet (1,000 Units total) by mouth in the morning. 0 Active cholecalciferol, vitD3,/vit K2 (VITAMIN D3-VITAMIN K2 ORAL) (4 sources) cholecalciferol, vitD3,/vit K2 (VITAMIN D3-VITAMIN K2 ORAL) Take by mouth once daily. Active cholecalciferol, vitD3,/vit K2 (VITAMIN D3-VITAMIN K2 ORAL) Take by mouth once daily. 0 Active ciprofloxacin 500 mg oral tablet [...] week. 42.5 g 0 09/30/2023 Active ferrous fumarate/ascorbic acid (WILLIAM-SEQUELS, IRON-VIT C, ORAL) (13 sources) ferrous fumarate/ascorb ic acid (WILLIAM-SEQUELS, IRON-VIT C, ORAL) Take by mouth once daily. Active ferrous fumarate /ascorbic acid (WILLIAM-SEQUELS, IRON-VIT C, ORAL) Take by mouth once daily. 0 Active Comment on above: Take by mouth once d aily. fluticasone propionate 0.05 mg/actuat metered dose nasal spray (13 sources) Corticosteroid Start: 2 take 2 spray(s) nasal route once daily Fluticasone Propionate 50 MCG/ACT 2 sprays each nostril Nasally Once a day Jul, Active Folate (20 sources) Folate Not-Nora g Folate Active iv contrast (will be provided with radiology test) (4 sources) Start: 05-06-2024 End: 05-07-2024 inject 1 dose intravenously once iv contrast (will be provided with radiology test) MRI Brain Inject, intravenously, once for 1 dose.No IV access, insert saline lock prior to beginning of sedation, infusion, injection of imaging exam.Discontinue saline lock post exam. If Pt. has a central line or IVAD, may access for administration according to line specific nursing protocol.Once exam is complete flush line and de-access according to line specific nursing protocol in the MR contrast administration guidelines link 1 Each 05/06/2024 05/07/2024 Active Start: 11-05-2023 End: 11-06-2023 inject 1 dose intravenously once iv contrast (will be provided with radiology test) Indications: Hyperreflexia , Demyelinating disease of central nervous system (HCC) MRI Brain Inject, intravenously, once for 1 dose.No IV access, insert saline lock prior to beginning of sedation, infusion, injection of imaging exam.Discontinue saline lock post exam. If Pt. has a central line or IVAD, may access for administration according to line specific nursing protocol.Once exam is complete flush line and de-access according to line specific nursing protocol in the MR contrast administration guidelines link 1 Each 0 11/05/2023 11/06/2023 Active Start: 11-05-2023 End: 11-06-2023 iv contrast (will be provide d with radiology test) Indications: Hyperreflexia , Spinal stenosis of cervical region , Syringomyelia and syringobulbia (HCC) , Demyelinating disease of central nervous system (HCC) MRI CSP Inject, intravenously, once for 1 dose. No IV access, insert saline lock prior to the beginning of sedation, infusion, injection of imaging exam. Discontinue saline lock post exam. If Pt. has a central line or IVAD, may access for administration according to line specific nursing protocol. Once exam is complete flush line and de-access according to line specific nursing protocol in the MR contrast administration guidelines link. 1 Each 0 11/05/2023 11/06/2023 Active Start: 11-05-2023 End: 11-06-2023 inject 1 dose intravenously once iv contrast (will be provided with radiology test) Indications: Hyperreflexia , Demyelinating disease of central nervous system (HCC) MRI TSP Inject, intravenously, once for 1 dose. No IV access, insert saline lock prior to the beginning of sedation, infusion, injection of imaging exam. Discontinue saline lock post exam. If Pt. has a central line or IVAD, may access for administration according to line specific nursing protocol. Once exam is complete flush line and de-access according to line specific nursing protocol in the MR contrast administration guidelines link. 1 Each 0 11/05/2023 11/06/2023 Active magnesium oxide 400 mg oral tablet (11 sources) Start: 09-17-2023 Magnesium Oxid e Active 400 MG PO As Directed September 17, 2023 12:00am FreeTextSig: as directed Orally; Note: Source Status: Taking; Provider: iGsel Lanier ( ) Multiple Vitamin (multivitamin) tablet (3 sources) take 1 tablet by mouth in the morning Multiple Vitamin (multivitamin) tablet Take 1 tablet by mouth in the morning. Active NON FORMULARY (1 source) NON FORMULARY Vi tamin B 12 INJECTIONS 0 Active microencapsulated potassium chloride 10 meq extended release oral tablet (1 source) take 1 tablet by mouth in the morning potassium chloride (K-TAB,KLOR-CON) 10 MEQ CR tablet Take 1 tablet (10 mEq total) by mouth in the morning and 1 tablet (10 mEq total) before bedtime. 0 Active potassium citrate (4 sources) POTASSIUM CITRAT E ORAL Take by mouth once daily. Active POTASSIUM CITRAT E ORAL Take by mouth once daily. 0 Active Selenium (3 sources) Selenium Active Syringe 25G X 5/8 3 ML (2 sources) Syringe 25G X 5/ 8 3 ML as directed with B12 injection Active vitamin b12 1 mg/ml injectable solution (20 sources) Vitamin B12 Start: 09-04-2020 cyanocobalamin 1,000 mcg/mL 09/04/2020 Active Start: 11-09-2019 End: 11-10-2023 inject 1000 ug by intramuscular injection every 30 days Cyanocobalamin (Vitamin B-12) Discontinued 1000 MCG IM Q30D November 09, 2019 12:00am November 10, 2023 11:10am Cyanocobalamin 1 000 MCG/ML INJECT 1 ML ONCE A WEEK Active Completed/Discontinued Medications Medication Drug Class(es) Dates Sig (Normalized) Sig (Original) acetaminophen 325 mg / oxyCODONE hydrochloride 5 mg oral tablet (6 sources) Opioid Agonist Start: 02-23-2023 End: 09-17-2023 take 1 tablet by mouth every four hours Oxycodone-Acetamino phen Discontinued 1 TAB PO Q4H February 23, 2023 12:00am September 17, 2023 3:35pm ALPRAZolam 0.25 mg oral tablet (20 sources) Benzodiazepine Start: 09-17-2023 End: 10-21-2023 Alprazolam (Xanax) 0.25 mg tablet Discontinued 0 PO .Q8-12 hrs prn October 21, 2023 4:11pm October 21, 2023 4:15pm 1/2 to 1 tablet Orally q8-12 hrs prn Start: 02-10-2020 take 1 tablet by erika three times daily as needed for anxiety Xanax 0.25 mg Tab See Instructions, PRN as needed for anxiety, tab(s) mg Oral TID, Refills(s) 0 Start Date: 02/10/20 Status: Ordered Start: 02-27-2017 take 2 tablets by mo [facility] every eight hours as needed ALPRAZolam (XANAX) 0.25 mg tablet Take 0.5 mg by mouth three times a day as needed. 02/27/2017 Active Start: 02-27-2017 Xanax 0.25 MG 1/2 to 1 tablet Orally q8-12 hrs prn Feb, Active take 0.5 tablet by [facility] three times daily as needed for anxiety ALPRAZolam (Xanax) 0.25 MG tablet Take 0.5 tablets by mouth 3 (three) times a day as needed for anxiety. Active azithromycin 250 mg oral tablet (6 sources) [...] day for 7 days Jan, Not-Taking ferrous sulfate 325 mg oral tablet (5 sources) Start: 09-17-2023 End: 03-24-2024 take 1 tablet by mouth once daily Ferrous Sulfate Discontinued 325 MG PO Daily September 17, 2023 12:00am March 24, 2024 3:05pm FreeTextSi tablet Orally qd; Note: Source Status: Continue; Provider: Michelet Rick take 1 tablet by erika th every twenty-four hours Ferrous Sulfate 325 (65 Fe) MG 1 tablet Orally qd Active folic acid 0.8 mg / intrinsic factor 20 mg / vitamin b12 0.5 mg oral tablet (9 sources) Vitamin B12 Start: 11-09-2019 End: 09-17-2023 take 1 tablet by mouth once daily Vit [id number] Fact-Fa Cmb #2 (Intrinsi O17-Apnegi) 500-20-800 mcg-mg-mcg Tablet Discontinued 1 TAB PO Daily November 09, 2019 12:00am September 17, 2023 3:36pm hydroxocobalamin 1 mg/ml injectable solution (4 sources) Antidote Start: 11-12-2023 End: 03-24-2024 inject 1000 ug by intramuscular injection every week Hydroxocobalamin Discontinued 1000 MCG IM every week November 12, 2023 12:00am November 12, 2023 3:09pm Magnesium (20 sources) Start: 11-09-2019 End: 09-17-2023 [...] ORAL T kailey by mouth once daily. Active MAGNESIUM ORAL T kailey by mouth once [...] sources) Methylcobalamin weekly Not-Taking Methylcobalamin weekly Active methylcobalamin (2 sources) Start: 11-10-2023 End: 11-12-2023 inject 1000 mg by intramuscular injection every week methylcobalamin Discontinued 1000 MG IM Once a week 0.32 November 10, 2023 12:00am November 12, 2023 2:43pm methylPREDNISolone 4 mg oral tablet (20 sources) Corticosteroid Start: 01-21-2023 methylPREDNISolone 4 MG as directed Orally with food for 6 days Jan, Not-Taking Medrol (Darwin) 4 M G as directed Orally for 6 days Not-Taking predniSONE 10 mg oral tablet (6 sources) Start: 02-23-2023 End: 09-17-2023 take 60 [...] three days, 10mg daily for three days. Sertraline (20 sources) Serotonin Reuptake Inhibitor Start: 11-10-2023 End: 03-24-2024 sertraline Discontinued 2 MG PO As Directed November 10, 2023 12:00am March 24, 2024 3:07pm 5 caps QD x7 then 4 caps QD x7 then 3 caps QD x7 then 2 caps QD x7 then 1 cap QD x7 then stop Start: 11-10-2023 sertraline Act danielle 2 MG PO As Directed November 10, 2023 12:00am 5 caps QD x7 then 4 caps QD x7 then 3 caps QD x7 then 2 caps QD x7 then 1 cap QD x7 then stop Start: 08-02-2020 End: 11-10-2023 sertraline (ZOLOFT) 25 mg ta blet Take 25 mg by mouth. 08/02/2020 Active Start: 06-15-2019 End: 11-09-2019 take [...] Toradol 30 mg/ml (20 sources) Start: 01-22-20 23 Toradol 30 mg/ml Jan, 30 mg traMADol hydrochloride 50 mg oral tablet (20 sources) Opioid Agonist Start: 02-16-20 End: 09-17-19 24 take 50 mg by mouth twice daily Tramadol Discontinued 50 MG PO Twice daily February 23, 2023 12:00am September 17, 2023 3:36pm triamcinolone acetonide 40 mg/ml injectable suspension (20 sources) Corticosteroid Start: 01-22-20 Kenalog-40 Jan, 40 mg Problems Active Problems Problem Classification Problem Date Documented Date Episodic/Chronic Abdominal pain (13 sources) Unspecified abdominal pain; Translations: [Right flank pain] Onset: 06-11-20 Resolved : 01-10-20 Episodic Anxiety disorders (20 sources) Anxiety; Translations: [Anxiety disorder, unspecified] Onset: 06-11-20 Resolved : 09-30-19 24 Chronic Calculus of urinary tract (20 sources) Kidney stone; Translations: [Calculus of kidney] Onset: 08-03-19 Episodic Cardiac dysrhythmias (1 source) Tachycardia, unspecified Episodi c Deficiency and other anemia (9 sources) Nutritional anemia; Translations: [Vitamin B12 deficiency anemia, unspecified] 07-06-2019 Episodic Diseases of white blood cells (20 sources) Leukopenia; Translations: [Decreased white blood cell count, unspecified] Chronic Fluid and electrolyte disorders (2 sources) Hypokalemia Episodic Heart valve disorders (2 sources) Heart murmur; Translations: [Cardiac murmur, unspecified] 10-21-2023 Episodic Inflammation; infection of eye (except that caused by tuberculosis or sexually transmitteddisease) (20 sources) Keratoconjunctivitis sicca, not specified as Sjogren's; Translations: [Keratoconjunctivitis sicca, not specified as Sjogren's, bilateral] Chronic Inflammation; infection of eye (except that caused by tuberculosis or sexually transmitteddisease) (1 source) Unspecified conjunctivitis Episodic Malaise and fatigue (4 sources) Other fatigue; Translations: [Fatigue] Episodic Menopausal disorders (5 sources) Postmenopausal bleeding; Translations: [Postmenopausal bleeding] Onset: 07-02-2009-30-2023 Chronic Menstrual disorders (20 sources) Amenorrhea; Translations: [...] Onset: 09-11-19 Resolved : 09-11-19 Episodic Other acquired deformities (1 source) Neuromuscular scoliosis, thoracic region; Translations: [Scoliosis associated with other conditions] 10-21-2023 Chronic Other aftercare (8 sources) Other terminal operator (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 therapy; Translations: [OTH [facility] CURRENT DRUG THERAPY] Onset: 12-12-19 Resolved : 12-12-19 Episodic Other and unspecified benign neoplasm (1 source) Lipoma (clinical); Translations: [Benign lipomatous neoplasm, unspecified] 03-24-2024 Episodic Other and unspecified benign neoplasm (1 source) Benign lipomatous neoplasm, unspecified; Translations: [Lipoma, unspecified site] 03-24-2024 Episodic Other circulatory disease (2 sources) Other [...] [Other specified disorders of bladder] Chronic Other diseases of bladder and urethra (1 source) Urethral stricture 05-30-2020 Episodic Other gastrointestinal disorders (20 sources) Constipation; Translations: [Constipation, unspecified] 09-17-2023 Episodic Other gastrointestinal disorders (4 sources) Constipation, unspecified; Translations: [Constipation, unspecified] Onset: 07-06-20 Episodic Other hereditary and degenerative nervous system conditions (20 sources) Restless legs; Translations: [Restless legs syndrome] 04-02-2024 Chronic Other hereditary and degenerative nervous system conditions (3 sources) Restless legs syndrome Chronic Other lower respiratory disease (1 source) Other forms of dyspnea Episodic Other nervous system disorders (9 sources) Peripheral nerve disease ; Translations: [Polyneuropathy, unspecified] 06-15-2019 Chronic Other nervous system disorders (1 source) Other chronic pain; Translations: [OTHER CHRONIC PAIN] Onset: 08-03-19 Chronic Other nervous system disorders (20 sources) Chronic pain; Translations: [Other chronic pain] Chronic Other nervous system disorders (1 source) Other chronic pain; Translations: [Other chronic pain] Onset: 02-28-20 Chronic Other nervous system disorders (4 sources) Neuropathy; Translations: [Polyneuropathy, unspecified] 04-02-2024 Chronic Other nervous system disorders (1 source) Polyneuropathy, unspecified Chronic Other nervous system disorders (2 sources) Chiari malformation type I; Translations: [Compression of brain] 10-27-2023 Chronic Other nervous system disorders (2 sources) Syringomyelia and syringobulbia; Translations: [Syringomyelia and syringobulbia] 10-27-2023 Chronic Other nervous system disorders (3 sources) Demyelinating disease of central nervous system; Translations: [Demyelinating disease of central nervous system, unspecified] 10-27-2023 Chronic Other nervous system disorders (1 source) Demyelinating disease of central nervous system, unspecified; Translations: [Demyelinating disease of central nervous system (HCC)] Onset: 12-09-19 Chronic Other nervous system disorders (1 source) Syringomyelia and syringobulbia; Translations: [Syringomyelia and syringobulbia (HCC)] Onset: 12-09-19 Chronic Other nervous system disorders (1 source) Cerebral cyst; Translations: [Cerebral cysts] 05-06-2024 Chronic Other nervous system disorders (20 sources) Abnormal involuntary movement; Translations: [Fasciculation] Episodic Other nervous system disorders (20 sources) Paresthesia; Translations: [Paresthesia of skin] Episodic Other nervous system disorders (20 sources) Spasmodic movement; Translations: [Fasciculation] 11-10-2023 Episodic Other nervous system disorders (3 sources) Paresthesia of skin; Translations: [Paresthesia of skin] Onset: 02-24-20 Episodic Other nervous system disorders (6 sources) Fasciculation; Translations: [Abnormal involuntary movements] Onset: 03-23-20 Episodic Other nervous system disorders (1 source) Anesthesia of skin Episodic Other nervous system disorders (1 source) Tremor, unspecified Episodic Other nervous system disorders (6 sources) Hyperreflexia; Translations: [Abnormal reflex] 10-21-2023 Episodic Other nervous system disorders (3 sources) Muscle fasciculation; Translations: [Fasciculation] 10-21-2023 Episodic Other nervous system disorders (1 source) Skin sensation disturbance; Translations: [Unspecified disturbances of skin sensation] 03-23-2024 Episodic Other nervous system disorders (1 source) Unspecified disturbances of skin sensation; Translations: [Disturbance of skin sensation] Onset: 03-23-20 Episodic Other nervous system disorders (1 source) Tremor 04-02-2024 Episodic Other nutritional; endocrine; and metabolic disorders [...] conditions (not mental disorders or infectious disease) (7 sources) Encounter for screening mammogram for malignant neoplasm of breast; Translations: [Abnormal level of blood mineral] Onset: 01-07-20 Episodic Other skin disorders (1 source) Disorder of the skin and subcutaneous tissue, unspecified Episodic Other skin disorders (1 source) Mass of trunk; Translations: [Localized swelling, mass and lump, trunk] Onset: 04-20-20 Episodic Other skin disorders (1 source) Nodule of subcutaneous tissue of abdominal wall 04-20-2024 Episodic Other upper respiratory disease (20 sources) Allergic rhinitis; Translations: [Allergic rhinitis, unspecified] 04-02-2024 Chronic Other upper respiratory disease (1 source) Allergic rhinitis, unspecified Onset: 01-10-20 Resolved : 01-10-20 Chronic Other upper respiratory infections (7 sources) Acute sinusitis, unspecified; Translations: [Laryngitis] Episodic Prolapse of female genital organs (20 sources) Cystocele; Translations: [Midline cystocele] Onset: 09-07-19 Resolved : 09-30-1909-06-2020 Chronic Residual codes; unclassified (2 sources) Hypersomnia; Translations: [Hypersomnia, unspecified] 04-15-2024 Chronic Residual codes; unclassified (2 sources) Sleep-related groaning; Translations: [Other sleep disorders] 04-15-2024 Chronic Residual codes; unclassified (2 sources) Sleeptalking; Translations: [Other sleep disorders] 04-15-2024 Chronic Residual codes; unclassified (2 sources) Obstructive sleep apnea syndrome; Translations: [Obstructive sleep apnea (adult) (pediatric)] 04-15-2024 Chronic Residual codes; unclassified (20 sources) Insomnia; Translations: [Insomnia, unspecified] Episodic Residual codes; unclassified (1 source) Family history of malignant neoplasm of ovary Episodic Residual codes; unclassified (2 sources) Disturbance in sleep behavior; Translations: [Sleep disorder, unspecified] 04-15-2024 Episodic Residual codes; unclassified (1 source) Chronic pain 04-02-2024 Episodic Spondylosis; intervertebral disc disorders; other back problems (20 sources) Degeneration of intervertebral disc; Translations: [Other intervertebral disc degeneration, lumbar region] Chronic Thyroid disorders (20 sources) Thyroid nodule; Translations: [...] Classification Problem Date Documented Da te Episodic/Chronic E Codes: Natural/environment (1 source) Bitten or stung by nonvenomous insect and other nonvenomous arthropods, initial encounter Onset: 01-09-2022 Resolved: 01-09-2022 Episodic Genitourinary symptoms and ill-defined conditions (20 sources) Dysuria; Translations: [Nocturia] Onset: 09-06-2020 Resolved: 01-09-2023 09-06-2020 Episodic Other injuries and conditions due to external causes (1 source) Unspecified injury of right foot, initial encounter Onset: 01-28-2022 Resolved: 01-28-2022 Episodic Other nervous system disorders (1 source) Abnormal reflex; Translations: [Hyperreflexia] Onset: 12-09-2023 Episodic Other non-traumatic joint disorders (6 sources) Pain in left knee; Translations: [PAIN IN LEFT KNEE] Onset: 01-09-2022 Resolved: 01-11-2022 Episodic Other non-traumatic joint disorders (1 source) Effusion, left knee; Translations: [EFFUSION LEFT KNEE] Onset: 01-15-2022 Episodic Residual codes; unclassified (1 source) Insomnia, unspecified Onset: 06-11-2021 Resolved: 06-11-2021 Episodic Spondylosis; intervertebral disc disorders; other back problems (11 sources) Spinal stenosis, site unspecified; Translations: [Nerve root disorder] Onset: 12-09-2023 Episodic Unclassified (1 source) Cough R05.9 Onset: 01-09-2022 Resolved: 01-09-2022 Unclassified (10 sources) Lumbar pain M54.50 Results Test Name Value Interpretation Reference Range Facility Ambulatory Visit Summaryon 1 Ambulatory Visit Summary Ambulatory Visit Summary EDNA SULTANA :1965 Visit Date:04/20/2024 Ambulatory Visit Instructions Your Care Team Attending Physician - Florentin NEVILLE MD Primary Care Physician - Yannick Velázquez DO Referring Physician - Yannick Velázquez DO This Is Your Medications List Contact prescribing physician if questions or concerns alprazolam (Xanax 0.25 mg Tab) Procedures Performed Cystoscopy (02/17/2020), Bunionectomy, Caesarean section, Lysis of adhesions, Tonsillectomy, Tubal ligation. Discharge Vitals Heart Rate (Peripheral) 72 Respiratory Rate 16 Blood Pressure 144/106 Height 176.5 cm Height 69 in Weight 71.6 kg Weight 157.52 lb BMI 22.98 Medications What How Much When Instructions Unchanged alprazolam (Xanax 0.25 mg Tab) See instructions tab(s) mg Oral TID Contact prescribing physician if questions or concerns Allergies Adhesive Bandage (Rash) Macrobid (Diarrhea) Problems Ongoing - Any problem that you are currently receiving treatment for. Allergic rhinitis Anxiety Chiari malformation type I Chronic pain Heart murmur Incomplete bladder emptying Microscopic hematuria Neuropathy Nocturia RLS (restless legs syndrome) Thyroid nodule Tremor Urethral stricture Urgency of urination Vitamin B 12 deficiency Vitamin D deficiency Historical - Any problem that you are no longer receiving treatment for. Dysuria Right flank pain Right sided abdominal pain Patient Survey You may receive a survey via text or e-mail asking about your office visit. Please share your experience with us by completing your survey. We appreciate your feedback and thank you for choosing us for your care. Normal [facility] Basophil percentageon 2023 Basophil percentage 99 ug/dL 80-155 [facility] Comment on above: This test was leah green, and its performance characteristics determined by the [facility] Department of Pathology and Laboratory Medicine. It has not been cleared or approved by the FDA. The [facility] Department of Pathology and Laboratory Medicine is regulated under CLIA as qualified to perform high-complexity testing. This test is used for clinical purposes. It should not be regarded as investigational or for research. CELIAC SCREENon 03-23-2024 GLIAD DEAMIDATED IGA QUAL Negative Normal Negative, Test not Indicated [facility] Comment on above: Order Comment: Speci men Type: BLOOD SPECIMEN Ordering Facility: [facility] Address: [address] [place], [place] [address] [address] Result Comment: This is used as an aid in diagnosis of celiac disease. Clinical correlation is required. The following results were obtained with an [employer] QUANTA Lite Gliadin IgA ANGELA Gliadin. Gliadin IgA values obtained with different manufacturers' assay methods may not be used interchangeably. The magnitude of the reported IgA levels cannot be correlated to an endpoint titer. Performed By: #### C OPPER, 9008-8 #### [facility] CLIA [id number] [address] [place] [place] [address] [place] Gliadin peptide IgA Qn (S) 4 Units Normal <20 [facility] Comment on above: Order Comment: Speci men Type: BLOOD SPECIMEN Ordering Facility: [facility] Address: [address] [place] [address] Performed By: #### Chelsea HAIR, 5763-8 #### [facility] CLIA [id number] [address] [place] [place] [address] [place] INTERPRETATION No serological evidence of celiac disease, however, if celiac disease is clinically suspected and patient is not on gluten-free diet, histological diagnosis may be considered. HLA testing may help with risk assessment. Normal [facility] Comment on above: Order Comment: Speci men Type: BLOOD SPECIMEN Ordering Facility: [facility] Address: [address] [place] [address] Performed By: #### Chelsea HAIR, 5763-8 #### [facility] CLIA [id number] [address] [place] [place] [address] [place] TRANSGLUTAMINASE IGA ABS INTERPRETATION Negative Normal Negative [facility] Comment on above: Order Comment: Speci men Type: BLOOD SPECIMEN Ordering Facility: [facility] Address: [address] [place] [address] Result Comment: The following results were obtained with [employer] Lite R h-tTG IgA ANGELA.???R h-tTG IgA values obtained with different manufacturers' assay methods may not be used interchangeably. The magnitude of the reported IgA levels cannot be corelated to an endpoint???concentration. This is used as an aid in diagnosis of celiac disease. Clinical correlation is required. Performed By: #### C LAXMI, 5763-8 #### [facility] CLIA [id number] [address] [place] [place] [address] [place] tTG IgA Qn (S) <2 Normal <4 [facility] Comment on above: Order Comment: Speci men Type: BLOOD SPECIMEN Ordering Facility: [facility] Address: [address] [place] [address] Performed By: #### C LAXMI, 5763-8 #### [facility] CLIA [id number] [address] [place] [address] [facility] CNOVon 03-23-2024 CNOV Office Visit (NENMMN ) EDNA SULTANA ([id number]) 1965 F Date Time Provider Department 03/23/24 3:00 PM JANNA GILMAN NEKYMN During your visit today, we recorded the following information about you: Pulse Blood pressure Weight Height 95/minute 156/92 70.2 kg 1.803 m Janna Gilman MD 03/23/2024 4:32 PM Signed This 58-year-old woman is seen in neurological consultation at the request of Dr. Abiodun Castano for evaluation of fasciculations and disturbance of skin sensation in the legs. For 78 years the patient has had burning in the bilateral soles of the feet, primarily at night. Symptoms have not much progressed over time. They do not prevent activities of daily living. She has had tingling sensation below the knees on an off-and-on basis. For the last year or so the patient has had bilateral calf fasciculations and she describes charley horse cramps especially in bed, especially in the calves, for the last 1-2 years. At some point a vitamin B12 level was low although the intrinsic factor methylmalonic acid levels were okay. High-dose vitamin B12 has not improved the symptoms. A B6 level was around 200 and a B1 level was on the upper limit of normal, and she has supplemental vitamins. Workup has included MRI scan of the cervical and thoracic spine without findings relevant to the symptoms. 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 An A1c level was 5.6. The past medical history is pertinent for lumbar canal stenosis without specific symptoms and bilateral tailor bunionectomies. There is no history of tobacco use and alcohol use is uncommon. The family history is pertinent for 3 healthy biological children and 1 adopted child. The father at age 48 with multiple myeloma and her mother at age 78 with primary progressive aphasia. There is a thyroid condition for which the patient is followed closely. Review of systems, including constitutional symptoms, eyes, ears, nose, throat, cardiovascular, respiratory, GI, , musculoskeletal, skin, psychiatric, endocrine, hematological/lymphati c, and allergic/immunologic is normal, unless otherwise stated above. Itemized examination below is normal unless further described: Blood pressure, pulse, respiration General appearance Gait Muscle strength of arms and legs Muscle tone, atrophy, fasciculations Mental state: orientation, recent/remote memory, attention/concentratio n Language function Fund of knowledge Cranial nerves 3 through 12 Sensation Muscle stretch reflexes of all extremities, plantar responses Coordination of the extremities, fine motor control Pertinent findings on neurologic examination: Gait: Normal stride and stance, heel-toe walk, Romberg, tandem, hop. Motor: Full power all extremities, normal bulk, no fasciculations identified in muscles of the arms and legs. Occasional momentary posterior thigh cramps elicited during motor exam. Sensation: 25% decrease in pin sensation below the ankles bilaterally. Vibration was felt at the toes with mild but not minimal stimulus. Joint position sense normal. Muscle stretch reflexes: 1+ in the upper extremities without spread, 1+/2 at the knees without crossed adduction, 1+/2 at the ankles without clonus. Tone normal. Coordination: Intact all extremities. Impression: Essentially normal neurologic examination except for subjective reduction of pin sensation below the ankles. 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 We discussed workup, and the patient defers QSART and skin biopsy at the present time, and instead we will pursue further lab testing for treatable causes of neuropathy. MRI report of right temporal cyst also suggested follow-up. Plan: Labs for treatable causes of sensory neuropathy. Patient will reach me in early June for 6-month follow-up MRI of the brain with and without contrast. I spent a total of 60 minutes on the date of the service which included preparing to see the patient, [id number] patient care, completing clinical documentation, obtaining and/or reviewing separately obtained history, performing a medically appropriate examination, counseling and educating the patient/family/caregiv er, and ordering medications, tests, or procedures. Janna Gilman MD cc: Abiodun Castano [id number] [place] [id number] Edna Sultana [id number] [address] [facility] [address] Referring Provider: ABIODUN CASTANO [[id number]] Allergies As of Date: 03/23/2024 Noted Allergy Reaction ADHESIVE 05/20/2006 9 - Itching 2 - Rash 7 - Swelling ADHESIVE TAPE-SILICONES 09/06/2020 2 - Rash 4 - Hives FLUOROURACIL-ADHESIVE BANDAGE 12/16/2018 2 - Rash Date Reviewed: 03/23/2024 Reviewed by: Jaci Burton OCCA - (more content not included)... Normal [facility] COPPER BLOODon 03-23-2024 Copper [Mass/Vol] 99 ug/dL Normal 80-155 [facility] Comment on above: Order Comment: Kraig sandoval Type: BLOOD SPECIMEN Ordering Facility: [facility] Address: [address] [place] [address] Result Comment: This test was developed, and its performance characteristics determined by the [facility] Department of Pathology and Laboratory Medicine. It has not been cleared or approved by the FDA. The [facility] Department of Pathology and Laboratory Medicine is regulated under CLIA as qualified to perform high-complexity testing. This test is used for clinical purposes. It should not be regarded as investigational or for research. Performed By: #### C LAXMI, 5763-8 #### [facility] CLIA [id number] [address] [place], [place] [id number] [address] [place] Ceruloplasmin SerPl-mCncon 0 03-23-2024 Ceruloplasmin [Mass/Vol] 26 mg/dL Normal 16-45 [facility] Comment on above: Order Comment: Kraig sandoval Type: BLOOD SPECIMEN Ordering Facility: [facility] Address: [address] [place] [address] Performed By: #### 2 064-4 #### [facility] CLIA [id number] [address] [place] [address] [place] IMMUNOFIXATION SCREEN, SERUM on 03-23-2024 MPA RESULT No M protein is identified. Normal No M protein is identified. [facility] Comment on above: Order Comment: Speci men Type: BLOOD SPECIMEN Ordering Facility: [facility] Address: [address] [place] [address] Performed By: #### Chelsea HAIR, 5763-8 #### [facility] CLIA [id number] [address] [place] [address] [place] STAFF REVIEW (MPA) Reviewed by Dr. Ania Melo MD [facility] Comment on above: Order Comment: Speci men Type: BLOOD SPECIMEN Ordering Facility: [facility] Address: [address] [place] [address] Performed By: #### Chelsea HAIR, 5763-8 #### [facility] CLIA [id number] [address] [place] [place] [address] [place] IgA SerPl-mCncon 03-23-2024 IgA [Mass/Vol] 242 mg/dL Normal 70-400 [facility] Comment on above: Order Comment: Speci men Type: BLOOD SPECIMEN Ordering Facility: [facility] Address: [address] [place] [address] Performed By: #### Chelsea HAIR, 5763-8 #### [facility] CLIA [id number] [address] [place], [place] [id number] [place] IgA [Mass/volume] in Serum o r Plasmaon 03-23-2024 IgA [Mass/Vol] 242 mg/dL 70-400 [facility] Immunoglobulin light chains. kappa.free [Mass/volume] in Serumon 03-23-2024 Immunoglobulin light chains.kappa.free (S) [Mass/Vol] 10.8 mg/L 3.3-19.4 [facility] Comment on above: Rarely, increased se rum free light chains levels may not be detected or accurately quantified due to prozone phenomenon or in high viscosity samples using this immunoturbidimetric assay. Correlation with other laboratory results and clinical findings is recommended. The [place] Free Light Chain was performed using the Binding Site Optilite immunoturbidimetric method. Result obtained with different assay methods or kits cannot be used interchangeably. Immunoglobulin light chains. kappa.free/Immunoglobulin light chains.lambda.free [Sharon 03-23-2024 Immunoglobulin light chains.kappa.free/Im munoglobulin light chains.lambda.free (S) [Mass ratio] 1.30 0.26-1.65 [facility] Immunoglobulin light chains. lambda.free [Mass/volume] in Serum or Plasmaon 03-23-2024 Immunoglobulin light chains.lambda.free [Mass/Vol] 8.3 mg/L 5.7-26.3 [facility] Comment on above: Rarely, increased se rum free light chains levels may not be detected or accurately quantified due to prozone phenomenon or in high viscosity samples using this immunoturbidimetric assay. Correlation with other laboratory results and clinical findings is recommended. The [place] Free Light Chain was performed using the Binding Site Optilite immunoturbidimetric method. Result obtained with different assay methods or kits cannot be used interchangeably. KAPPA/SORIANO,FREE,SERon 2023 Immunoglobulin light chains.kappa.free (S) [Mass/Vol] 10.8 mg/L Normal 3.3-19.4 [facility] Comment on above: Order Comment: Speci men Type: BLOOD SPECIMEN Ordering Facility: [facility] Address: [address] [place] [address] Result Comment: Rare ly, increased serum free light chains levels may not be detected or accurately quantified due to prozone phenomenon or in high viscosity samples using this immunoturbidimetric assay. Correlation with other laboratory results and clinical findings is recommended. The [place] Free Light Chain was performed using the Binding Site Optilite immunoturbidimetric method. Result obtained with different assay methods or kits cannot be used interchangeably. Performed By: #### C LAXMI, 5763-8 #### [facility] CLIA [id number] [address] [id number] [address] [place] Immunoglobulin light chains.kappa/Immunog lobulin light chains.lambda (S) [Mass ratio] 1.30 Normal 0.26-1.65 [facility] Comment on above: Order Comment: Speci men Type: BLOOD SPECIMEN Ordering Facility: [facility] Address: [address] [place] [address] Performed By: #### Chelsea HAIR, 5763-8 #### [facility] CLIA [id number] [address] [place] [address] OF [place] Immunoglobulin light chains.lambda.free [Mass/Vol] 8.3 mg/L Normal 5.7-26.3 [facility] Comment on above: Order Comment: Speci men Type: BLOOD SPECIMEN Ordering Facility: [facility] Address: [address] [place] [address] Result Comment: Rare ly, increased serum free light chains levels may not be detected or accurately quantified due to prozone phenomenon or in high viscosity samples using this immunoturbidimetric assay. Correlation with other laboratory results and clinical findings is recommended. The [place] Free Light Chain was performed using the Binding Site Optilite immunoturbidimetric method. Result obtained with different assay methods or kits cannot be used interchangeably. Performed By: #### Chelsea HAIR, 5763-8 #### [facility] CLIA [id number] [address] [place] [address] [place] No Panel Informationon 03-23 Gliadin (Deamidated) IgA Ab Interp Negative Negative, Test not Indicated [facility] Comment on above: This is used as an a id in diagnosis of celiac disease. Clinical correlation is required.The following results were obtained with an [employer] QUANTA Lite Gliadin IgA ANGELA Gliadin. Gliadin IgA values obtained with different manufacturers' assay methods may not be used interchangeably. The magnitude of the reported IgA levels cannot be correlated to an endpoint titer. Miscellaneous Test Comment [facility] Tissue Transglutaminase IgA Interp Negative Negative [facility] Comment on above: The following result s were obtained with [employer] QUANTA Lite R h-tTG IgA ANGELA.???R h-tTG IgA values obtained with different manufacturers' assay methods may not be used interchangeably. The magnitude of the reported IgA levels cannot be corelated to an endpoint???concentration.This is used as an aid in diagnosis of celiac disease. Clinical correlation is required. Plasma zinc measurementon Zinc [Mass/Vol] 72 ug/dL 60-120 [facility] Comment on above: This test was develo ped, and its performance characteristics determined by the [facility] Department of Pathology and Laboratory Medicine. It has not been cleared or approved by the FDA. The [facility] Department of Pathology and Laboratory Medicine is regulated under CLIA as qualified to perform high-complexity testing. This test is used for clinical purposes. It should not be regarded as investigational or for research. Serum gliadin peptide IgA an tibody assay (units/volume)on 03-23-2024 Gliadin peptide IgA Qn (S) 4 Units <20 [facility] Serum or plasma ceruloplasmi n measurement (mass/volume)on 03-23-2024 Ceruloplasmin [Mass/Vol] 26 mg/dL 16-45 [facility] Serum tissue transglutaminas e (tTG) IgA antibody assay (units/volume)on 03-23-2024 tTG IgA Qn (S) <2 U/mL <4 [facility] Zinc SerPl-mCncon 03-23-2024 Zinc [Mass/Vol] 72 ug/dL Normal 60-120 [facility] Comment on above: Order Comment: Speci men Type: BLOOD SPECIMEN Ordering Facility: [facility] Address: [address] [place] [address] Result Comment: This test was developed, and its performance characteristics determined by the [facility] Department of Pathology and Laboratory Medicine. It has not been cleared or approved by the FDA. The [facility] Department of Pathology and Laboratory Medicine is regulated under CLIA as qualified to perform high-complexity testing. This test is used for clinical purposes. It should not be regarded as investigational or for research. 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 Computer aided detection was utilized. FINDINGS: The breasts are heterogeneously dense, which may obscure small masses. There are no suspicious masses, calcifications, or areas of architectural distortion. IMPRESSION: No mammographic evidence of malignancy. BI-RADS: BI-RADS 1 - Negative Recommendation: Recommend MBI as a supplemental screening combined with annual mammography.. As a separate recommendation, due to the density and/or complexity of breast tissue on mammography, Molecular Breast Imaging is recommended as a supplement to annual screening mammography. MBI can be used to help detect mammographically occult cancers in dense breasts. Finalized by Emi Castillo MD on 01/07/2024 2:10 PM [facility] CNOVon 12-12-2023 CNOV Office Visit (SPMEST ) EDNA SULTANA ([id number]) 1965 F Date Time Provider Department 12/12/23 10:50 AM ABIODUN CASTANO SPMEST During your visit today, we recorded the following information about you: Respiration Weight Height 12/minute 71.7 kg 1.803 m Abiodun Castano DO 12/12/2023 12:40 PM Signed Follow-up Visit [facility] December 12, 2023 CC: Lumbar spine pain left buttock pain and bilateral lower limb vermiculation SUBJECTIVE: Patient returns today to discuss the results of her MRI imaging. At her prior visit was complaining of similar symptoms. Has continued to deal with twitching and sensation of bugs crawling on her legs since this time. On exam did have presence of fasciculations in the bilateral calf muscles. Since this time she reports she has begun to notice extending sensation of twitching and crawling now also to the distal medial thighs she denies any lower limb weakness. In the past has undergone 2 EMGs without any evidence of neuropathy or radiculopathy at outside facilities. Patient also has been found to be suffering from true B12 deficiency and has begun on supplementation. Patient again brings up the fact that she had previously been worked up for Lyme disease and had been placed on antibiotics many years ago Since last visit: She continues to deny bowel/bladder incontinence, denies fever, denies night pain, denies unintentional weight loss, denies clumsiness of hands or dropping things, denies clumsiness of feet, tripping or falling. Denies any constitutional or myelopathic symptomatology. No interval change in PMHX, PSHX, Allergies, FamHx or ROS. PMH: PAST MEDICAL HISTORY Diagnosis Date Vitamin B12 deficiency PSH: PAST SURGICAL HISTORY Procedure Laterality Date BUNIONECTOMY, LAPIDUS-TYPE SECTION HX F PER LYSIS ADHES TONSILLECTOMY AND ADENOIDECTOMY HX Social history: Social History Tobacco Use Smoking status: Never Smokeless tobacco: Never Substance Use Topics Alcohol use: Yes Alcohol/week: 1.0 standard drink of alcohol Types: 1 Glasses of Wine (5oz) per week Drug use: Never Fam history: No family history on file. Reviewed and updated with patient. ALLERGIES: Adhesive Tape-Silicones DATA REVIEW: Lumbar MRI: IMPRESSION: No evidence of demyelinating disease within the thoracic spine. No substantial canal stenosis or cord signal abnormality. For the purposes of this report, L4-5 is considered the level of the iliac crest and there are 5 lumbar-type vertebrae. Anatomic variant: Assume 11 thoracic, rib bearing vertebrae to accommodate counting discrepancies from the craniocervical and lumbosacral junctions. Thoracic MRI: IMPRESSION: No evidence of demyelinating disease within the cervical spine. Mild multilevel degenerative changes with no substantial canal or foraminal stenosis. No spinal cord signal abnormality identified. Incidental 1.7 cm T2 hyperintense lesion is present in the left thyroid lobe. Recommend thyroid ultrasound for further evaluation. Anatomic Variant: None. Assume 7 cervical vertebrae with counting from the craniocervical junction. Brain MRI: IMPRESSION: No acute intracranial abnormality. 12 mm ovoid T2 FLAIR hyperintense lesion is present in the anterior right temporal lobe subcortical white matter with no postcontrast enhancement or mass effect. While this is favored to reflect sequela of a nonspecific remote insult, continued attention on follow-up imaging is recommended to assess stability and exclude a low-grade glioma. Subtle T2 FLAIR hyperintense signal abnormality is present in the bilateral globi pallidi. While this may reflect numerous tiny perivascular spaces, sequelae of prior toxic/metabolic insult is also within the differential. OBJECTIVE: Vital Signs: Resp 12 Ht 180.3 cm (5' 11 ) Wt 71.7 kg (158 lb) BMI 22.04 kg/m? ASSESSMENT: General:Patient in no apparent distress, afebrile, well appearing Lungs:No labored breathing, symetric chest excursion, no tachypnia Heart:No lower limb edema, pulses palpable and symetric dorsalis pedis and radial, no cyanosis Abdominal:Non distended abdomen Neuro:Strength intact bilateral lower limbs Sensation intact bilateral lower limbs Reflexes 3+ bilateral patella and left medial hamstring. 1+ right medial hamstring and absent right Achilles normal left Achilles Strength intact in bilateral upper limbs Sensation intact in bilateral upper limbs Reflexes intact in bilateral upper limbs Muscular:Tenderness to palpation of right Lumbar paraspinal muscles Skin:Head, neck, trunk, and extremities dry, intact and without lesions. DX: R25.3 Fasciculation (primary encounter diagnosis) R29.2 Hyperreflexia M51.37 Degeneration of lumbar or lumbosacral intervertebral disc PLAN: 1) Patient continues to deal with pain in (more content not included)... Normal [facility] MR Brain WO and W contrast I Von 12-09-2023 IMPRESSION: No acute intracranial abnormality. 12 mm ovoid T2 FLAIR hyperintense lesion is present in the anterior right temporal lobe subcortical white matter with no postcontrast enhancement or mass effect. While this is favored to reflect sequela of a nonspecific remote insult, continued attention on follow-up imaging is recommended to assess stability and exclude a low-grade glioma. Subtle T2 FLAIR hyperintense signal abnormality is present in the bilateral globi pallidi. While this may reflect numerous tiny perivascular spaces, sequelae of prior toxic/metabolic insult is also within the differential. Kit Planner: MICHAEL Transcribe Date/Time: Dec 09 2023 11:06A Dictated by : MARY COWART MD This examination was interpreted and the report reviewed and electronically signed by: MARY COWART MD on Dec 09 2023 11:11AM [facility] DIVISION OF RADIOLOGY * * *Final Report* * * DATE OF EXAM: Dec 09 2023 11:06AM [facility] 0295 - MRI BRAIN WO/W IVCON / PROCEDURE REASON: multiple diagnoses * * * * Physician Interpretation * * * * EXAMINATION: MRI BRAIN WO/W IVCON CLINICAL HISTORY: Hyperreflexia TECHNIQUE: Routine brain MRI protocol without and with contrast including diffusion images. MQ: [id number]_2 Contrast: 14 mL Dotarem IV COMPARISON: None. RESULT: Acute Change: There is no evidence of restricted diffusion to suggest an acute infarct. Hemorrhage: No evidence of space-occupying intracranial hemorrhage. Mass Lesion/ Mass Effect: 12 mm ovoid T2 FLAIR hyperintense lesion is present in the anterior right temporal lobe subcortical white matter with no postcontrast enhancement or mass effect. Chronic Change: Subtle T2 FLAIR hyperintense signal abnormality is present in the bilateral globi pallidi. Parenchyma: No significant volume loss for age. Ventricles: Normal caliber and morphology. Skull Base: Hypothalamic and pituitary region are grossly normal. Craniocervical junction is normal. No significant marrow replacement process. Vasculature: Major intracranial arterial structures, and dural venous sinuses show typical flow void, suggesting patency by spin echo criteria. Other: The visualized paranasal sinuses and mastoid air cells are clear. The orbits and extracranial soft tissues are unremarkable. DIVISION OF RADIOLOGY Provider, [facility] - 12/09/2023 * * *Final Report* * * DATE OF EXAM: Dec 09 2023 11:06AM [facility] 0295 - MRI BRAIN WO/W IVCON / PROCEDURE REASON: multiple diagnoses * * * * Physician Interpretation * * * * EXAMINATION: MRI BRAIN WO/W IVCON CLINICAL HISTORY: Hyperreflexia TECHNIQUE: Routine brain MRI protocol without and with contrast including diffusion images. MQ: MRBWOW_2 Contrast: 14 mL Dotarem IV COMPARISON: None. RESULT: Acute Change: There is no evidence of restricted diffusion to suggest an acute infarct. Hemorrhage: No evidence of space-occupying intracranial hemorrhage. Mass Lesion/ Mass Effect: 12 mm ovoid T2 FLAIR hyperintense lesion is present in the anterior right temporal lobe subcortical white matter with no postcontrast enhancement or mass effect. Chronic Change: Subtle T2 FLAIR hyperintense signal abnormality is present in the bilateral globi pallidi. Parenchyma: No significant volume loss for age. Ventricles: Normal caliber and morphology. Skull Base: Hypothalamic and pituitary region are grossly normal. Craniocervical junction is normal. No significant marrow replacement process. Vasculature: Major intracranial arterial structures, and dural venous sinuses show typical flow void, suggesting patency by spin echo criteria. Other: The visualized paranasal sinuses and mastoid air cells are clear. The orbits and extracranial soft tissues are unremarkable. IMPRESSION IMPRESSION: No acute intracranial abnormality. 12 mm ovoid T2 FLAIR hyperintense lesion is present in the anterior right temporal lobe subcortical white matter with no postcontrast enhancement or mass effect. While this is favored to reflect sequela of a nonspecific remote insult, continued attention on follow-up imaging is recommended to assess stability and exclude a low-grade glioma. Subtle T2 FLAIR hyperintense signal abnormality is present in the bilateral globi pallidi. While this may reflect numerous tiny perivascular spaces, sequelae of prior toxic/metabolic insult is also within the differential. Kit Planner: MICHAEL Transcribe Date/Time: Dec 09 2023 11:06A Dictated by : MARY COWART MD This examination was interpreted and the report reviewed and electronically signed by: MARY COWART MD on Dec 09 2023 11:11AM EST [facility] MR Brain WO and W contrast I VOrdered By: [facility] Provider on 12-09-[address] [facility] MR Cervical spine WO and W c ontrast David 12-09-2023 IMPRESSION: No evidence of demyelinating disease within the cervical spine. Mild multilevel degenerative changes with no substantial canal or foraminal stenosis. No spinal cord signal abnormality identified. Incidental 1.7 cm T2 hyperintense lesion is present in the left thyroid lobe. Recommend thyroid ultrasound for further evaluation. Anatomic Variant: None. Assume 7 cervical vertebrae with counting from the craniocervical junction. Kit Planner: MICHAEL Transcribe Date/Time: Dec 09 2023 11:12A Dictated by : MARY COWART MD This examination was interpreted and the report reviewed and electronically signed by: MARY COWART MD on Dec 09 2023 11:20AM [facility] DIVISION OF RADIOLOGY * * *Final Report* * * DATE OF EXAM: Dec 09 2023 11:06AM [facility] 0298 - MRI CERVICAL SPINE WO/W IVCON / PROCEDURE REASON: multiple diagnoses * * * * Physician Interpretation * * * * EXAMINATION: MRI CERVICAL SPINE WO/W IVCON CLINICAL HISTORY: Hyperreflexia Spinal stenosis of cervical region Demyelinating disease of central nervous system (HCC) TECHNIQUE: Routine cervical spine MR protocol without and with intravenous gadolinium. MQ: MRCSPWO_3 COMPARISON: None. RESULT: Counting reference: Craniocervical junction. Anatomic Variants: None. Localizer images: No additional findings. Alignment: Slight reversal of the normal cervical lordosis. Mild degenerative anterolisthesis of C4 on C5 and trace retrolisthesis of C5 on C Craniocervical junction: Craniocervical junction is normal. Cord: The visualized cord is within normal limits of signal intensity and morphology. Bone marrow signal/fracture: No aggressive marrow replacing lesion is identified. Likely subcentimeter atypical venous malformation within the anterior superior corner of the T2 vertebral body. No evidence of prior fracture. Cervical soft tissues: The paraspinal soft tissues are within normal limits. Incidental 1.7 cm T2 hyperintense lesion is present in the left thyroid lobe. C2-C3: Mild to moderate left degenerative facet disease without substantial canal or foraminal stenosis. C3-C4: No canal or foraminal stenosis. C4-C5: Mild degenerative disc disease without canal or foraminal stenosis. C5-C6: Mild degenerative disc disease with left greater than right uncovertebral spurring resulting in mild to moderate left foraminal stenosis and no substantial canal stenosis. C6-C7: Mild degenerative disc disease with left greater than right uncovertebral spurring resulting in minimal left foraminal narrowing and no substantial canal stenosis. C7-T1: No canal or foraminal stenosis. DIVISION OF RADIOLOGY Provider, [facility] - 12/09/2023 * * *Final Report* * * DATE OF EXAM: Dec 09 2023 11:06AM [facility] 0298 - MRI CERVICAL SPINE WO/W IVCON / PROCEDURE REASON: multiple diagnoses * * * * Physician Interpretation * * * * EXAMINATION: MRI CERVICAL SPINE WO/W IVCON CLINICAL HISTORY: Hyperreflexia Spinal stenosis of cervical region Demyelinating disease of central nervous system (HCC) TECHNIQUE: Routine cervical spine MR protocol without and with intravenous gadolinium. MQ: MRCSPWO_3 COMPARISON: None. RESULT: Counting reference: Craniocervical junction. Anatomic Variants: None. Localizer images: No additional findings. Alignment: Slight reversal of the normal cervical lordosis. Mild degenerative anterolisthesis of C4 on C5 and trace retrolisthesis of C5 on C Craniocervical junction: Craniocervical junction is normal. Cord: The visualized cord is within normal limits of signal intensity and morphology. Bone marrow signal/fracture: No aggressive marrow replacing lesion is identified. Likely subcentimeter atypical venous malformation within the anterior superior corner of the T2 vertebral body. No evidence of prior fracture. Cervical soft tissues: The paraspinal soft tissues are within normal limits. Incidental 1.7 cm T2 hyperintense lesion is present in the left thyroid lobe. C2-C3: Mild to moderate left degenerative facet disease without substantial canal or foraminal stenosis. C3-C4: No canal or foraminal stenosis. C4-C5: Mild degenerative disc disease without canal or foraminal stenosis. C5-C6: Mild degenerative disc disease with left greater than right uncovertebral spurring resulting in mild to moderate left foraminal stenosis and no substantial canal stenosis. C6-C7: Mild degenerative disc disease with left greater than right uncovertebral spurring resulting in minimal left foraminal narrowing and no substantial canal stenosis. C7-T1: No canal or foraminal stenosis. IMPRESSION IMPRESSION: No evidence of demyelinating disease within the cervical spine. Mild multilevel degenerative changes with no substantial canal or foraminal stenosis. No spinal cord signal abnormality identified. Incidental 1.7 cm T2 hyperintense lesion is present in the left thyroid lobe. Recommend thyroid ultrasound for further evaluation. Anatomic Variant: None. Assume 7 cervical vertebrae with counting from the craniocervical junction. Kit Planner: PSCB Transcribe Date/Time: Dec 09 2023 11:12A Dictated by : MARY COWART MD This examination was interpreted and the report reviewed and electronically signed by: MARY COWART MD on Dec 09 2023 11:20AM EST [facility] MR Cervical spine WO and W chelsea ontrast IVOrdered By: [facility] Provider on 12-09-[address] [facility] MR Thoracic spine WO and W chelsea ontrast David 12-09-2023 IMPRESSION: No evidence of demyelinating disease within the thoracic spine. No substantial canal stenosis or cord signal abnormality. For the purposes of this report, L4-5 is considered the level of the iliac crest and there are 5 lumbar-type vertebrae. Anatomic variant: Assume 11 thoracic, rib bearing vertebrae to accommodate counting discrepancies from the craniocervical and lumbosacral junctions. Kit Planner: MICHAEL Transcribe Date/Time: Dec 09 2023 11:20A Dictated by : MARY COWART MD This examination was interpreted and the report reviewed and electronically signed by: MARY COWART MD on Dec 09 2023 11:23AM [facility] DIVISION OF RADIOLOGY * * *Final Report* * * DATE OF EXAM: Dec 09 2023 11:06AM [facility] 0326 - MRI THORACIC SPINE WO/W IVCON / PROCEDURE REASON: multiple diagnoses * * * * Physician Interpretation * * * * EXAMINATION: MRI THORACIC SPINE WO/W IVCON CLINICAL HISTORY: Hyperreflexia Demyelinating disease of central nervous system (HCC) TECHNIQUE: Routine thoracic spine MR protocol with and without intravenous gadolinium. MQ: MTSWO_3 COMPARISON: None. RESULT: Counting reference: Craniocervical and lumbosacral junctions. For the purposes of this report, L4-5 is considered the level of the iliac crest and there are 5 lumbar-type vertebrae. Anatomic variant: Assume 11 thoracic, rib bearing vertebrae to accommodate counting discrepancies from the craniocervical and lumbosacral junctions. Localizer images: No additional findings. Alignment: Mild diffuse dextrocurvature of the thoracic spine. Levoscoliosis of the lumbar spine centered at L3. Cord: The visualized cord is within normal limits of signal intensity and morphology. Bone marrow signal/fracture: No focal aggressive marrow replacing lesion identified. No evidence of prior fracture. Thoracic paraspinal soft tissues: The paraspinal soft tissues are within normal limits. Canal and foramina: Mild multilevel degenerative changes without substantial canal or foraminal stenosis. DIVISION OF RADIOLOGY Provider, [facility] - 12/09/2023 * * *Final Report* * * DATE OF EXAM: Dec 09 2023 11:06AM [facility] 0326 - MRI THORACIC SPINE WO/W IVCON / PROCEDURE REASON: multiple diagnoses * * * * Physician Interpretation * * * * EXAMINATION: MRI THORACIC SPINE WO/W IVCON CLINICAL HISTORY: Hyperreflexia Demyelinating disease of central nervous system (HCC) TECHNIQUE: Routine thoracic spine MR protocol with and without intravenous gadolinium. MQ: MTSWO_3 COMPARISON: None. RESULT: Counting reference: Craniocervical and lumbosacral junctions. For the purposes of this report, L4-5 is considered the level of the iliac crest and there are 5 lumbar-type vertebrae. Anatomic variant: Assume 11 thoracic, rib bearing vertebrae to accommodate counting discrepancies from the craniocervical and lumbosacral junctions. Localizer images: No additional findings. Alignment: Mild diffuse dextrocurvature of the thoracic spine. Levoscoliosis of the lumbar spine centered at L3. Cord: The visualized cord is within normal limits of signal intensity and morphology. Bone marrow signal/fracture: No focal aggressive marrow replacing lesion identified. No evidence of prior fracture. Thoracic paraspinal soft tissues: The paraspinal soft tissues are within normal limits. Canal and foramina: Mild multilevel degenerative changes without substantial canal or foraminal stenosis. IMPRESSION IMPRESSION: No evidence of demyelinating disease within the thoracic spine. No substantial canal stenosis or cord signal abnormality. For the purposes of this report, L4-5 is considered the level of the iliac crest and there are 5 lumbar-type vertebrae. Anatomic variant: Assume 11 thoracic, rib bearing vertebrae to accommodate counting discrepancies from the craniocervical and lumbosacral junctions. Kit Planner: [facility] Transcribe Date/Time: Dec 09 2023 11:20A Dictated by : MARY COWART MD This examination was interpreted and the report reviewed and electronically signed by: MARY COWART MD on Dec 09 2023 11:23AM EST [facility] Radiology Study observation (narrative) [facility] MR Thoracic spine WO and W c ontrast IVOrdered By: [facility] Provider on 12-09-[address] [facility] MRI BRAIN WO/W IVCONon 12-08 MRI BRAIN WO/W IVCON * * *Final Report* * * DATE OF EXAM: Dec 09 2023 11:06AM [facility] 0295 - MRI BRAIN WO/W IVCON / PROCEDURE REASON: multiple diagnoses * * * * Physician Interpretation * * * * EXAMINATION: MRI BRAIN WO/W IVCON CLINICAL HISTORY: Hyperreflexia TECHNIQUE: Routine brain MRI protocol without and with contrast including diffusion images. MQ: MRBWOW_2 Contrast: 14 mL Dotarem IV COMPARISON: None. RESULT: Acute Change: There is no evidence of restricted diffusion to suggest an acute infarct. Hemorrhage: No evidence of space-occupying intracranial hemorrhage. Mass Lesion/ Mass Effect: 12 mm ovoid T2 FLAIR hyperintense lesion is present in the anterior right temporal lobe subcortical white matter with no postcontrast enhancement or mass effect. Chronic Change: Subtle T2 FLAIR hyperintense signal abnormality is present in the bilateral globi pallidi. Parenchyma: No significant volume loss for age. Ventricles: Normal caliber and morphology. Skull Base: Hypothalamic and pituitary region are grossly normal. Craniocervical junction is normal. No significant marrow replacement process. Vasculature: Major intracranial arterial structures, and dural venous sinuses show typical flow void, suggesting patency by spin echo criteria. Other: The visualized paranasal sinuses and mastoid air cells are clear. The orbits and extracranial soft tissues are unremarkable. IMPRESSION: No acute intracranial abnormality. 12 mm ovoid T2 FLAIR hyperintense lesion is present in the anterior right temporal lobe subcortical white matter with no postcontrast enhancement or mass effect. While this is favored to reflect sequela of a nonspecific remote insult, continued attention on follow-up imaging is recommended to assess stability and exclude a low-grade glioma. Subtle T2 FLAIR hyperintense signal abnormality is present in the bilateral globi pallidi. While this may reflect numerous tiny perivascular spaces, sequelae of prior toxic/metabolic insult is also within the differential. Kit Planner: MICHAEL Transcribe Date/Time: Dec 09 2023 11:06A Dictated by : MARY COWART MD This examination was interpreted and the report reviewed and electronically signed by: MARY COWART MD on Dec 09 2023 11:11AM EST [id number] Normal [facility] MRI CERVICAL SPINE WO/W IVCO Non 12-09-2023 MRI CERVICAL SPINE WO/W IVCON * * *Final Report* * * DATE OF EXAM: Dec 09 2023 11:06AM [facility] 0298 - MRI CERVICAL SPINE WO/W IVCON / PROCEDURE REASON: multiple diagnoses * * * * Physician Interpretation * * * * EXAMINATION: MRI CERVICAL SPINE WO/W IVCON CLINICAL HISTORY: Hyperreflexia Spinal stenosis of cervical region Demyelinating disease of central nervous system (HCC) TECHNIQUE: Routine cervical spine MR protocol without and with intravenous gadolinium. MQ: MRCSPWO_3 COMPARISON: None. RESULT: Counting reference: Craniocervical junction. Anatomic Variants: None. Localizer images: No additional findings. Alignment: Slight reversal of the normal cervical lordosis. Mild degenerative anterolisthesis of C4 on C5 and trace retrolisthesis of C5 on C Craniocervical junction: Craniocervical junction is normal. Cord: The visualized cord is within normal limits of signal intensity and morphology. Bone marrow signal/fracture: No aggressive marrow replacing lesion is identified. Likely subcentimeter atypical venous malformation within the anterior superior corner of the T2 vertebral body. No evidence of prior fracture. Cervical soft tissues: The paraspinal soft tissues are within normal limits. Incidental 1.7 cm T2 hyperintense lesion is present in the left thyroid lobe. C2-C3: Mild to moderate left degenerative facet disease without substantial canal or foraminal stenosis. C3-C4: No canal or foraminal stenosis. C4-C5: Mild degenerative disc disease without canal or foraminal stenosis. C5-C6: Mild degenerative disc disease with left greater than right uncovertebral spurring resulting in mild to moderate left foraminal stenosis and no substantial canal stenosis. C6-C7: Mild degenerative disc disease with left greater than right uncovertebral spurring resulting in minimal left foraminal narrowing and no substantial canal stenosis. C7-T1: No canal or foraminal stenosis. IMPRESSION: No evidence of demyelinating disease within the cervical spine. Mild multilevel degenerative changes with no substantial canal or foraminal stenosis. No spinal cord signal abnormality identified. Incidental 1.7 cm T2 hyperintense lesion is present in the left thyroid lobe. Recommend thyroid ultrasound for further evaluation. Anatomic Variant: None. Assume 7 cervical vertebrae with counting from the craniocervical junction. Kit Planner: PSCB Transcribe Date/Time: Dec 09 2023 11:12A Dictated by : MARY COWART MD This examination was interpreted and the report reviewed and electronically signed by: AMRY COWART MD on Dec 09 2023 11:20AM EST [id number] Normal [facility] MRI THORACIC SPINE WO/W IVCO Non 12-09-2023 MRI THORACIC SPINE WO/W IVCON * * *Final Report* * * DATE OF EXAM: Dec 09 2023 11:06AM [facility] 0326 - MRI THORACIC SPINE WO/W IVCON / PROCEDURE REASON: multiple diagnoses * * * * Physician Interpretation * * * * EXAMINATION: MRI THORACIC SPINE WO/W IVCON CLINICAL HISTORY: Hyperreflexia Demyelinating disease of central nervous system (HCC) TECHNIQUE: Routine thoracic spine MR protocol with and without intravenous gadolinium. MQ: MTSWO_3 COMPARISON: None. RESULT: Counting reference: Craniocervical and lumbosacral junctions. For the purposes of this report, L4-5 is considered the level of the iliac crest and there are 5 lumbar-type vertebrae. Anatomic variant: Assume 11 thoracic, rib bearing vertebrae to accommodate counting discrepancies from the craniocervical and lumbosacral junctions. Localizer images: No additional findings. Alignment: Mild diffuse dextrocurvature of the thoracic spine. Levoscoliosis of the lumbar spine centered at L3. Cord: The visualized cord is within normal limits of signal intensity and morphology. Bone marrow signal/fracture: No focal aggressive marrow replacing lesion identified. No evidence of prior fracture. Thoracic paraspinal soft tissues: The paraspinal soft tissues are within normal limits. Canal and foramina: Mild multilevel degenerative changes without substantial canal or foraminal stenosis. IMPRESSION: No evidence of demyelinating disease within the thoracic spine. No substantial canal stenosis or cord signal abnormality. For the purposes of this report, L4-5 is considered the level of the iliac crest and there are 5 lumbar-type vertebrae. Anatomic variant: Assume 11 thoracic, rib bearing vertebrae to accommodate counting discrepancies from the craniocervical and lumbosacral junctions. Kit Planner: MICHAEL Transcribe Date/Time: Dec 09 2023 11:20A Dictated by : MARY COWART MD This examination was interpreted and the report reviewed and electronically signed by: MARY COWART MD on Dec 09 2023 11:23AM EST [id number] Normal [facility] No Panel Informationon 12-08 Radiology Study observation (narrative) [facility] Giovanni 11-06-2023 RO Telephone (SPMEST) KAYY,EDNA A ([id number]) 1965 F Date Time Provider Department 11/06/23 ABIODUN CASTANO During your visit today, we recorded the following information about you: Kimberly House MA 11/06/2023 7:26 AM Signed end Kimberly House MA 11/06/2023 9:09 AM Signed Scheduled 3 mri's and follow up appointment as requested by Dr. Castano. Allergies As of Date: 11/06/2023 Noted Allergy Reaction ADHESIVE TAPE-SILICONES 09/06/2020 2 - Rash 4 - Hives Date Reviewed: 10/21/2023 Reviewed by: Kimberly House MA - Fully Assessed Reason for Visit: MRI Appointment [1569] Prescriptions as of 11/06/2023 - iv contrast (will be provided with radiology test) MRI Brain Inject, intravenously, once for 1 dose.No IV access, insert saline lock prior to beginning of sedation, infusion, injection of imaging exam.Discontinue saline lock post exam. If Pt. has a central line or IVAD, may access for administration according to line specific nursing protocol.Once exam is complete flush line and de-access according to line specific nursing protocol in the MR contrast administration guidelines link - iv contrast (will be provided with radiology test) MRI CSP Inject, intravenously, once for 1 dose. No IV access, insert saline lock prior to the beginning of sedation, infusion, injection of imaging exam. Discontinue saline lock post exam. If Pt. has a central line or IVAD, may access for administration according to line specific nursing protocol. Once exam is complete flush line and de-access according to line specific nursing protocol in the MR contrast administration guidelines link. - iv contrast (will be provided with radiology test) MRI TSP Inject, intravenously, once for 1 dose. No IV access, insert saline lock prior to the beginning of sedation, infusion, injection of imaging exam. Discontinue saline lock post exam. If Pt. has a central line or IVAD, may access for administration according to line specific nursing protocol. Once exam is complete flush line and de-access according to line specific nursing protocol in the MR contrast administration guidelines link. - MAGNESIUM ORAL Take by mouth once daily. - ferrous fumarate/ascorbic acid (WILLIAM-SEQUELS, IRON-VIT C, ORAL) Take by mouth once daily. - sertraline (ZOLOFT) 25 mg tablet Take 25 mg by mouth. - cyanocobalamin 1,000 mcg/mL Problem List As Of Date 11/06/2023 Noted Resolved Dysuria [R30.0] 09/06/2020 Cystocele with prolapse [N81.4] 09/06/2020 Nocturia [R35.1] 09/06/2020 Disposition: Return in about 4 weeks (around 12/04/2023). Follow-up and Disposition History for Encounter Date Provider Department Center 11/06/20232065-ABIODUN CASTANO SPMEST [facility] Stro Encounter Status:Closed by KIMBERLY HOUSE on 11/06/23 [facility] Giovanni 11-05-2023 CNPN Telephone (SPMEST) ENDA SULTANA ([id number]) 1965 F Date Time Provider Department 11/05/23 ABIODUN CASTANO During your visit today, we recorded the following information about you: Abiodun Castano DO 11/05/2023 6:21 PM Signed Received communication from radiology department. In light of our concern regarding potential demyelinating process such as MS or other types of neurologic processes they are recommending that the MRIs be performed with and without contrast to show any subtle changes that might not be picked up on regular MRI imaging. For this reason we will need to place new orders for her MRI and the MRI will need to be performed on a different date since they do not perform MRIs with contrast on Sundays. Please advise patient that I apologize for this change, however, since she has been dealing with these bizarre symptoms for quite some time I do believe that this would be our best recommendation. I will send the patient a [employer] message also so she is aware. Devin please cancel her other MRIs and I have placed new orders. Abiodun Castano DO Allergies As of Date: 11/05/2023 Noted Allergy Reaction ADHESIVE TAPE-SILICONES 09/06/2020 2 - Rash 4 - Hives Date Reviewed: 10/21/2023 Reviewed by: Kimberly House MA - Fully Assessed Prescriptions as of 11/06/2023 - iv contrast (will be provided with radiology test) MRI Brain Inject, intravenously, once for 1 dose.No IV access, insert saline lock prior to beginning of sedation, infusion, injection of imaging exam.Discontinue saline lock post exam. If Pt. has a central line or IVAD, may access for administration according to line specific nursing protocol.Once exam is complete flush line and de-access according to line specific nursing protocol in the MR contrast administration guidelines link - iv contrast (will be provided with radiology test) MRI CSP Inject, intravenously, once for 1 dose. No IV access, insert saline lock prior to the beginning of sedation, infusion, injection of imaging exam. Discontinue saline lock post exam. If Pt. has a central line or IVAD, may access for administration according to line specific nursing protocol. Once exam is complete flush line and de-access according to line specific nursing protocol in the MR contrast administration guidelines link. - iv contrast (will be provided with radiology test) MRI TSP Inject, intravenously, once for 1 dose. No IV access, insert saline lock prior to the beginning of sedation, infusion, injection of imaging exam. Discontinue saline lock post exam. If Pt. has a central line or IVAD, may access for administration according to line specific nursing protocol. Once exam is complete flush line and de-access according to line specific nursing protocol in the MR contrast administration guidelines link. - MAGNESIUM ORAL Take by mouth once daily. - ferrous fumarate/ascorbic acid (WILLIAM-SEQUELS, IRON-VIT C, ORAL) Take by mouth once daily. - sertraline (ZOLOFT) 25 mg tablet Take 25 mg by mouth. - cyanocobalamin 1,000 mcg/mL Problem List As Of Date 11/05/2023 Noted Resolved Dysuria [R30.0] 09/06/2020 Cystocele with prolapse [N81.4] 09/06/2020 Nocturia [R35.1] 09/06/2020 Encounter Status:Closed by ABIODUN CASTANO on 11/06/23 Normal [facility] CNPNon 10-28-2023 CNPN Telephone (SPMEST) EDNA SULTANA ([id number]) 1965 F Date Time Provider Department 10/28/23 ABIODUN CASTANO During your visit today, we recorded the following information about you: Kimberly House MA 10/28/2023 9:25 AM Signed Left message for patient to return call to schedule mri's and a follow up appointment. Allergies As of Date: 10/28/2023 Noted Allergy Reaction ADHESIVE TAPE-SILICONES 09/06/2020 2 - Rash 4 - Hives Date Reviewed: 10/21/2023 Reviewed by: Kimberly House MA - Fully Assessed Reason for Visit: MRI Appointment [1569] Follow Up [171] Prescriptions as of 11/03/2023 - MAGNESIUM ORAL Take by mouth once daily. - ferrous fumarate/ascorbic acid (WILLIAM-SEQUELS, IRON-VIT C, ORAL) Take by mouth once daily. - sertraline (ZOLOFT) 25 mg tablet Take 25 mg by mouth. - cyanocobalamin 1,000 mcg/mL Problem List As Of Date 10/28/2023 Noted Resolved Dysuria [R30.0] 09/06/2020 Cystocele with prolapse [N81.4] 09/06/2020 Nocturia [R35.1] 09/06/2020 Disposition: Return in about 4 weeks (around 11/25/2023). Follow-up and Disposition History for Encounter Date Provider Department Center 10/28/20232065-ABIODUN CASTANO [facility] Encounter Status:Closed by KIMBERLY HOUSE on 11/03/23 Normal [facility] Automated epithelial cells c ount in urine sediment (number/area)on 10-25-2023 Epithelial cells Auto (Urine sed) [#/Area] NONE SEEN #/LPF NONE/RARE [facility] Automated leukocytes count i n urine sediment (number/area)on 10-25-2023 WBC Auto (Urine sed) [#/Area] 5-10 #/HPF 0-2 [facility] Automated urine specific gra vity by refractometryon 10-25-2023 Specific gravity Refractometry automated (U) [Rel density] 1.025 1.005-1.025 [facility] Bilirubin Auto test strip (U ) [Mass/Vol]on 10-25-2023 Bilirubin (U) [Mass/Vol] COLOR INTERFERENCE NEGATIVE [facility] Casts typing in urine sedime nt by light microscopyon 10-25-2023 Casts LM Nom (Urine sed) NONE SEEN #/LPF NONE SEEN [facility] Color Auto (U)on 10-25-2023 Color (U) ORANGE YELLOW [facility] Ketones Auto test strip (U) [Mass/Vol]on 10-25-2023 Ketones (U) [Mass/Vol] COLOR INTERFERENCE mg/dL NEGATIVE [facility] Mucus LM Ql (Urine sed)on Mucus Ql (Urine sed) NONE SEEN NONE SEEN [facility] Protein Auto test strip (U) [Mass/Vol]on 10-25-2023 Protein (U) [Mass/Vol] COLOR INTERFERENCE mg/dL NEG/TRACE [facility] Specific gravity Auto test s trip (U) [Rel density]on 10-25-2023 Specific gravity (U) [Rel density] CLEAR CLEAR [facility] Urine bacteria detection by automated methodon 10-25-2023 Bacteria Auto Ql (U) TRACE #/HPF NONE SEEN [facility] Urine glucose measurement by test strip (mass/volume)on 10-25-2023 Glucose Test strip (U) [Mass/Vol] COLOR INTERFERENCE mg/dL NEGATIVE [facility] Urine hemoglobin detection b y automated test stripon 10-25-2023 Hemoglobin Auto test strip Ql (U) COLOR INTERFERENCE NEGATIVE [facility] Urine nitrite detection by a utomated test stripon 10-25-2023 Nitrite Auto test strip Ql (U) COLOR INTERFERENCE NEGATIVE [facility] Urine sediment crystal ident ification by light microscopyon 10-25-2023 Crystals LM Nom (Urine sed) None Seen #/HPF None Seen [facility] Urine sediment leukocyte cou nt by microscopy (number/high power field)on 10-25-2023 WBC LM.HPF (Urine sed) [#/Area] 0-2 #/HPF NONE SEEN [facility] Urobilinogen Auto test strip (U) [Mass/Vol]on 10-25-2023 Urobilinogen (U) [Mass/Vol] COLOR INTERFERENCE EU/dL 0.2-1.0 [facility] pH Auto test strip (U)on pH (U) COLOR INTERFERENCE 5.0-9.0 [facility] CNOVon 10-21-2023 CNOV Office Visit (SPMEST ) EDNA SULTANA ([id number]) 1965 F Date Time Provider Department 10/21/23 8:00 AM ABIODUN CASTANO SPMEST During your visit today, we recorded the following information about you: Respiration Weight Height 12/minute 71.7 kg 1.803 m Abiodun Castano DO 10/27/2023 6:45 PM Signed [facility] Low Back Pain - Chronic (> 12 weeks) Initial Exam SUBJECTIVE HISTORY OF PRESENT ILLNESS: Edna Eddy [place] is a 58 year old female who presents with a chief complaint of low back pain and is self-referred. Patient presents today complaining of pain in the lumbar spine as well as paresthesias into the bilateral lower limbs. Describes calf twitching like bugs crawling on her legs. Reports has had several episodes of low back over the years, however, calf twitching is a new symptom. Reports last summer did have a major episode of back pain for which it required multiple Medrol Dosepaks. Reports eventually back pain symptoms did significantly improve before the start of the school year. 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 Has seen Dr. Victorina Martinez and has undergone EMG in June 2023. Also describes paresthesias largely in the lateral aspect of bilateral feet and into the plantar aspect in the balls of her feet. Reports on occasion rare paresthesias in the upper limbs sometimes in the ulnar distribution and at times in the radial distribution. Has had extensive blood workup as well reports low ferritin magnesium and potassium in the past supplementation of certain electrolytes has not seem to make a difference in her symptoms. Denies any loss control of bowel or bladder. Balance seems okay. Has undergone extensive physical therapy. Patient's lumbar spine pain significantly bothersome in the evenings with difficulty sleeping due to her back pain. Has dealt with bladder dysfunction and recurrent UTIs. Has undergone urethral dilation with urology in the past. At this time denies any classic radicular symptoms into the lower limbs but will deal with intermittent areas of numbness and paresthesias in the bilateral lower limbs. She describes twitching into the bilateral calf muscles as well as intermittent cramping in the feet. Other Issues Addressed at the Visit Today: None. Precipitating Event: None Gardening started last episode PAIN EVALUATION 10/20/2023 1332 10/21/2023 0807 Pain Level: 3 3 Pain Location: Back-Lower Back-Lower Description: Aching -- Duration Amount of Time: 12 6 Duration Units: Months Months Frequency: Intermittent Continuous Intervention/Comfort measure: Reposition;Exercise;Po sitioning -- Pain Radiation: Despite low back pain patient denies any significant pain radiating down the lower limbs simply paresthesias` Aggravating Factors: Flexion, Extension, Lifting Alleviating Factors: Medications, Exercising/activity, Stretching Pain Ratio: 100 % back pain, 0 % leg pain Prior Therapy: In the past has undergone physical therapy. Has previously undergone course of physical therapy without any significant improvement in her symptoms. Litigation: No Workers' Compensation: No YELLOW AND BLUE FLAGS No-Neg Attitude; Back Pain is Disabling No-Avoiding Activity (for Fear of Pain) No-Depression or Anxiety Disorders No-Social Problems No-Substance Use Disorder No-Job Dissatisfaction No-Financial Disincentives Patient Entered Questionnaires 10/20/2023 Spine Questions Pain Location: Lower back Pain Duration: More than 5 years Pain over last 6 months: Every day or nearly every day in the past 6 months Symptoms from neck/cervical spine: No Employment Status: Working now Involved in law suit/legal claim: No 10/20/2023 Spine Red Flags Any type of cancer: No Unexplained fever: No Bowel or bladder disfunction: No Unintentional weight loss: No Osteoporosis: No PROMIS Score Percentiles 10/20/2023 Physical Health Physical Function Percentile 54 Sleep Percentile 27* Fatigue Percentile 58 Pain Interference Percentile 38 10/20/2023 PROMIS SOCIAL ROLE SCORE Social Role Satisfaction Percentile 73 09/06/2020 10/20/2023 PROMIS Global Health Scale Physical Health Percentile 53 66 Mental Health Percentile 43 53 Percentiles provide an indication of how the patient's score ranks in relation to the general population. Higher percentile rankings indicate better function/quality of life. 50th percentile is the average of the general population and indicates half of respondents had a worse score. Depression Screenin10/20/2023 PHQ-9 Score 1 10/20/2023 PHQ-9 Self-harm Question Question 9 Not at all PHQ-9 Self-Harm (Item 9) response options: 0 Not at all 1 Several days 2 More than half the days 3 Nearly every day PHQ-9 Levels: 0-4 No - mild depression (more content not included)... Normal [facility] Laboratory - Chemistry and C hemistry - challengeon 10-07-2023 Cobalamin (Vitamin B12) [Mass/Vol] 913 pg/mL [facility] Ferritin [Mass/Vol] 87 ng/mL [facility] E2 [Mass/Vol]on 07-02-2023 ESTRADIOL <15.[address] [facility] Comment on above: Result Comment: NON- FEMALES Mid follicular: 25-115 pg/mL Ovulatory Peak: 32.1-517 pg/mL Mid Luteal: 36.5-246 pg/mL Post-Menopausal Females: <15.0-25.1 pg/mL (Not on hormone therapy) The Access Sensitive Estradiol assay results are not intended to be used to measure the effectiveness of exogeneous Estradiol supplementation, for example, when the patient is on hormone replacement therapy. The presence of estradiol drug analogues and their metabolites could have an impact on estradiol recovery when using this assay. Performed By: #### 2 986-8, 2839-9, THYR, 63820-3, 19829-3, 3-4 #### [facility] ([id number]) [address], [address] [place] [address] Follitropin Qnon 07-02-2023 FOLLICLE STIM HORMONE 54.8 mIU/mL Normal [facility] Comment on above: Result Comment: NORMAL FEMALE Luteal 1.8-5.1 mIU/mL Follicular 3.8-8.8 mIU/mL Mid Cycle 4.5-22.5 mIU/mL Post [place] 16.7-113.6 mIU/mL Performed By: #### 2 986-8, 2839-9, THYR, 97773-0, 24676-1, 2242-4 #### [facility] ([id number]) [address], [address] [place] [address] Lutropin Qnon 07-02-2023 LUTEINIZING HORMONE 20.5 mIU/mL Normal [facility] Comment on above: Result Comment: NORMAL FEMALE Follicular 2.1-10.9 mIU/mL Mid Cycle 19.2-103 mIU/mL Luteal 1.2-12.9 mIU/mL Post Shawna 10.9-58.6 mIU/mL Performed By: #### 2 986-8, 2839-9, THYR, 02456-5, 01372-2, 3-4 #### [facility] ([id number]) [address], [facility] [address] [place] [address] Progesterone [Mass/Vol]on PROGESTERONE <0.[address] [facility] Comment on above: Result Comment: FEMALES: 1st Tri: 4.7-50.7 ng/ml 2nd Tri: 19.4-45.3 ng/ml MENSTRUATING FEMALES: Follicular: 0.3-1.5 ng/ml Mid Luteal: 5.2-18.6 ng/ml Post Shawna: <0.1-0.8 ng/ml Performed By: #### 2 986-8, 2839-9, THYR, 12333-9, 42543-0, 2243-4 #### [facility] ([id number]) [address], [facility] [address] [place] [address] THYROID PROFILEon 07-02-2023 Free T4 [Mass/Vol] 0.78 ng/dL Normal 0.61-1.60 [facility] Comment on above: Performed By: #### 2 986-8, 2839-9, THYR, 31146-6, 06281-3, 2243-4 #### [facility] ([id number]) [address] [facility] [address] [place] [address] TSH 1.25 uIU/mL Normal 0.49-4.[address] [facility] Comment on above: Performed By: #### 2 986-8, 2839-9, THYR, 51534-5, 64908-4, 2243-4 #### [facility] ([id number]) [address] [place] [address] Testosterone [Mass/Vol]on TESTOSTERONE 0.23 ng/mL Normal 0.00-0.[address] [facility] Comment on above: Performed By: #### 2 986-8, 2839-9, THYR, 84074-2, 87069-7, 2243-4 #### [facility] ([id number]) [address] [place] [address] Neurosurgery Office/Clinic N kishor 05-27-2023 Neurosurgery Office/Clinic Note Chief Complaint Back follow up-MRI @ [facility] 03/29 Physical Exam Vitals & [...] attempted healthier diet from her previously standard Cymraes diet and noted significant improvement in sense [...] prompted her to visit a neurosurgeon at [facility]. An MRI was ordered and no surgical [...] as A (more content not included)... Normal [facility] MR lumbar spine wo conon MR lumbar spine wo con [facility] [place] [address] [place] [address] MRI Report Signed Patient: Edna Sultana MR#: [id number] : 1965 Acct:[id number] Age/Sex: 57 / F ADM Date: 02/27/23 Loc: MR Room: Type: [facility] Attending Dr: Victorina Martinez MD Copies to: [...] Ashish Alvares M.D.02/27/2023 12:35 PM Dictation Location: [place] [address] Transcribed By: [facility] 02/27/23 1235 Dictated By: Ashish Alvares II, MD 02/27/23 1227 Signed By: 02/27/23 1235 [facility] Urinalysis - AUTOMATEDon Appearance (U) clear [employer] Other Bilirubin Ql (U) Negative [facility] Other Color (U) light yellow [employer] Other Glucose Ql (U) Negative [employer] Other Hemoglobin Ql (U) trace-intact [employer] Other Ketones Ql (U) Negative [employer] Other Leukocyte esterase Test strip Ql (U) Negative [employer] Other Nitrite Ql (U) Negative [employer] Other pH (U) 7.5 [pH] [employer] Other Protein Ql (U) Negative [employer] Other Specific gravity (U) [Rel density] 1.015 [employer] Other Urobilinogen (U) [Mass/Vol] 0.2 mg/dL [employer] Other Urinalysis - AUTOMATED [employer] Other US abdomen limitedon 023 US abdomen limited [facility] [place] [address] [place] [address] Ultrasound Report Signed Patient: Edna Sultana MR#: [id number] : 1965 Acct:[id number] Age/Sex: 57 / F ADM Date: 01/02/23 Loc: Room: Type: [facility] Attending Dr: Yannick Velázquez DO Ordering Provider: [...] SUGGESTED.. Impression dictated by: Pranay Thomson Jr., Aldair01/02/2023 11:07 AM Dictation Location: [place] [address] Tech: Nuha Fisher Transcribed By: RODERICK 01/02/23 110 Dictated By: Pranay Thomson Jr, DO 01/02/231104 Signed By: 01/02/231106 Normal [facility] US carotid doppler BIon 12-06 US carotid doppler BI [facility] [place] [address] [place] [address] Ultrasound Report Signed Patient: Edna Sultana MR#: [id number] : 1965 Acct:[id number] Age/Sex: 57 / F ADM Date: 01/02/23 Loc: Room: Type: [facility] Attending Dr: Yannick Velázquez DO Ordering Provider: [...] Lukas Schultz M.D.01/02/2023 4:33 PM Dictation Location: [place] [address] Tech: Nuha Phillip Transcribed By: RODERICK 01/02/23 1633 Dictated By: Lukas Schultz MD 01/02/23 1632 Signed By: 01/02/23 1633 [facility] MR lumbar spine wo [facility] MR lumbar spine wo [facility] [place] [address] XRay Report Signed Patient: Edna Sultana MR#: [id number] : 1965 Acct:[id number] Age/Sex: 56 / F ADM Date: 08/28/22 Loc: MR Room: Type: [facility] Attending Dr: Yannick Velázquez DO Copies to: Yannick Velázquez DO Ordering Provider: Yannick Velázquez DO Date of Service: 08/28/22 MR/MR lumbar spine wo con: M54.50 M48.0 M51.35 ([id number]) XR/XR pre/post mri xray: PRE MRI OF [...] Poppy Ashley M.D.08/28/2022 8:35 PM Dictation Location: [place] [address] Transcribed By: [facility] 08/28/222034 Dictated By: Poppy Ashley MD 08/28/222016 Signed By: 08/28/222034 [facility] MR lumbar spine wo con [facility] [employer] [facility] [employer] Other MR lumbar spine wo con [facility] [employer] Other MR lumbar spine wo con [address] [facility] [employer] Other [place] [address] [employer] Other MR lumbar spine wo con XRay Report [employer] Other MR lumbar spine wo con Signed [employer] Other MR lumbar spine wo con Patient: Edna Sultana MR#: [id number] [employer] Other MR lumbar spine wo con 2916 [employer] Other MR lumbar spine wo con : 1965 Acct:[id number] [employer] Other MR lumbar spine wo con Age/Sex: 56 / F ADM Date: 08/28/22 [employer] Other MR lumbar spine wo con Loc: MR Room: Type: [facility] [employer] Other MR lumbar spine wo con Attending Dr: Yannick Velázquez DO [employer] Other MR lumbar spine wo con Copies to: Yannick Velázquez, [employer] Other MR lumbar spine wo con Ordering Provider: Yannick Velázquez DO [employer] Other MR lumbar spine wo con Date of Service: 08/28/22 [employer] Other MR lumbar spine wo con MR/MR lumbar spine wo con: M54.50 M48.0 M51.35 [employer] Other MR lumbar spine wo con ([id number]) XR/XR pre/post mri xray: PRE MRI OF THE LUMBAR [employer] Other MR lumbar spine wo con CLINICAL DATA: Chronic back pain with bilateral toe numbness. No injury. [employer] Other MR lumbar spine wo con PRE-MRI LUMBAR SPINE - 2 views [employer] Other MR lumbar spine wo con COMPARISON: 05/11/2020 [employer] Other MR lumbar spine wo con Standing AP and lateral views were obtained. 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 [employer] Other MR lumbar spine wo con There are no developing fractures. There is still slight retrolisthesis of L2 on L3, L3 on L4 and [employer] Other MR lumbar spine wo con L4 and L5. There is mild disc space narrowing and anterior endplate sclerosis at L2-3. There is [employer] Other MR lumbar spine wo con also some disc space narrowing at L3-4. Mild endplate spurring is seen. There is mid and lower [employer] Other MR lumbar spine wo con lumbar facet hypertrophy. The SI joints are intact. No paraspinal soft tissue abnormalities are [employer] Other MR lumbar spine wo con present. [employer] Other MR lumbar spine wo con XR/XR pre/post mri xray [employer] Other MR lumbar spine wo con IMPRESSION: [employer] Other MR lumbar spine wo con SCOLIOSIS AND DEGENERATIVE CHANGES, SIMILAR TO THE PRIOR. [employer] Other MR lumbar spine wo con MRI LUMBAR SPINE WITHOUT CONTRAST [employer] Other MR lumbar spine wo con Multiecho imaging in the axial and sagittal plane was performed without contrast. [employer] Other MR lumbar spine wo con There is levoscoliotic curvature. There is minimal retrolisthesis of L2 on L3, L3 on L4 and L4 and [employer] Other MR lumbar spine wo con L5. There are no acute compression fractures or marrow edema. There are degenerative endplate [employer] Other MR lumbar spine wo con signal changes, predominantly at L2-3 anteriorly. The conus medullaris terminates at T12-L1. The [employer] Other MR lumbar spine wo con lower imaged cord shows no significant findings. 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 No paraspinal soft tissue abnormalities are noted. [employer] Other MR lumbar spine wo con At T12-L1, there is no disc disease or stenosis. [employer] Other MR lumbar spine wo con At L1-2, there is slight disco-osteophytic bulging with mild thecal sac effacement. There is [employer] Other MR lumbar spine wo con asymmetric facet disease on the left. There is no significant foraminal stenosis. [employer] Other MR lumbar spine wo con At L2-3, there is prominent narrowing of the disc space. Disco-osteophytic bulging is noted. There [employer] Other MR lumbar spine wo con is increased signal at the annulus that may be a tear. There is bilateral facet hypertrophy with [employer] Other MR lumbar spine wo con joint effusion on the left. There is slight thickening of ligamentum flavum. There is continued [employer] Other MR lumbar spine wo con moderate thecal sac effacement. There is mild inferior foraminal encroachment. [employer] Other MR lumbar spine wo con At L3-4, there is narrowing of the disc space. Disco-osteophytic bulging is present. There is [employer] Other MR lumbar spine wo con bilateral facet disease and mild thickening of ligamentum flavum. There is mild to moderate thecal [employer] Other MR lumbar spine wo con sac effacement. There is mild to moderate right and moderate left foraminal impingement. [employer] Other MR lumbar spine wo con At L4-5, there is slight loss of disc height. Annular disc bulging is noted, slightly asymmetric [employer] Other MR lumbar spine wo con from the right parasagittal region extending laterally. There is increased signal at the annulus [employer] Other MR lumbar spine wo con that could be tear. There is bilateral facet hypertrophy and thickening of ligamentum flavum, [employer] Other MR lumbar spine wo con asymmetric on the left. Moderate central stenosis is again seen. There is moderate narrowing of [employer] Other MR lumbar spine wo con the neural foramen bilaterally. [employer] Other MR lumbar spine wo con At the lumbosacral junction, mild annular disc bulging is visualized. There is increased signal at [employer] Other MR lumbar spine wo con the annulus that could be tear. There is bilateral facet disease, greater on the left. There is [employer] Other MR lumbar spine wo con subtle thecal sac effacement. There is moderate neural foraminal narrowing, greater on the left. [employer] Other MR lumbar spine wo con LEVOSCOLIOSIS. [employer] Other MR lumbar spine wo con MULTILEVEL DISCOVERTEBRAL DEGENERATIVE CHANGES WITH ASSOCIATED CENTRAL AND FORAMINAL STENOSIS, [employer] Other MR lumbar spine wo con DESCRIBED. SIMILAR FINDINGS WERE PRESENT AT THE TIME OF THE COMPARISON. [employer] Other MR lumbar spine wo con Impression dictated by: Poppy Ashley M.D.08/28/2022 8:35 PM [employer] Other MR lumbar spine wo con Dictation Location: [place] [address] [employer] Other MR lumbar spine wo con Transcribed By: PWS 08/28/222034 [employer] Other MR lumbar spine wo con Dictated By: Poppy Ashley MD 08/28/222016 [employer] Other MR lumbar spine wo con Signed By: [employer] Other MR lumbar spine wo con 08/28/222034 [employer] Other XR ABD FLAT_UPon 07-04-2022 XR ABD FLAT_UP EXAMINATION: XR ABD FLAT_UP HISTORY: Slow transit constipation COMPARISON: No relevant comparison available. FINDINGS: BOWEL GAS PATTERN: Non-obstructed. FREE AIR: None. CALCIFICATIONS: None significant. 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 IMPRESSION: Nonobstructive bowel gas pattern with normal amount of stool Electronically authenticated by: YANNICK REA Date: 2022-07-04 07:30 Normal [facility] CULTURE URINEon 07-03-2022 CULTURE URINE Culture Observations : NO GROWTH. Normal [facility] Comment on above: Performed By: #### U RCX #### [facility] [address] [place] [address] Dr. Rene De Jesus UA RANDOMon 07-03-2022 Bilirubin Ql (U) Negative Normal NEGATIVE [facility] Comment on above: Performed By: #### U A #### [facility] [address] [place] [address] Dr. Rene De Jesus Clarity (U) CLEAR Normal CLEAR [facility] Comment on above: Performed By: #### U A #### [facility] [address] [place] [address] Dr. Rene De Jesus Color (U) LT. YELLOW Normal YELLOW [facility] Comment on above: Performed By: #### U A #### [facility] [address] [place] [address] Dr. Rene De Jesus Glucose Ql (U) Negative Normal NEGATIVE [facility] Comment on above: Performed By: #### U A #### [facility] [address] [place] [address] Dr. Rene De Jesus Hemoglobin Ql (U) Negative Normal NEGATIVE [facility] Comment on above: Performed By: #### U A #### [facility] [address] [place] [address] Dr. Rene De Jesus Ketones Ql (U) Negative Normal NEGATIVE [facility] Comment on above: Performed By: #### U A #### [facility] [address] [place] [address] Dr. Rene De Jesus LEUKOCYTES Negative Normal NEGATIVE [facility] Comment on above: Performed By: #### U A #### [facility] [address] [place] [address] Dr. Rene De Jesus Nitrite Ql (U) Negative Normal NEGATIVE [facility] Comment on above: Performed By: #### U A #### [facility] [address] [place] [address] Dr. Rene De Jesus pH (U) 8.0 [pH] Normal 5-9 [facility] Comment on above: Performed By: #### U A #### [facility] [address] [place] [address] Dr. Rene De Jesus SPEC GRAVITY 1.010 Normal 1.005-<=1.02 5 [facility] Comment on above: Performed By: #### U A #### [facility] [address] [place] [address] Dr. Rene De Jesus UA PROTEIN Negative Normal NEGATIVE/ TRACE [facility] Comment on above: Performed By: #### U A #### [facility] [address] [place] [address] Dr. Rene De Jesus Urobilinogen Qn (U) 0.2 {Raman'U}/dL Normal 0.2 - 1. 0 [facility] Comment on above: Performed By: #### U A #### [facility] [address] [place] [address] Dr. Rene De Jesus CBC AUTO DIFFon 03-20-2022 BASO # 0.0 103/ul Normal 0.0-0.1 [facility] Comment on above: Performed By: #### C BC #### [facility] [address] [place] [address] Dr. Rene De Jesus Basophils/100 WBC (Bld) 0.8 % Normal 0.2-2.0 [facility] Comment on above: Performed By: #### C BC #### [facility] [address] [place] [address] Dr. Rene De Jesus EO # 0.1 103/ul Normal 0.0-0.7 [facility] Comment on above: Performed By: #### C BC #### [facility] [address] [place] [address] Dr. Rene De Jesus Eosinophils/100 WBC (Bld) 1.3 % Normal 0.9-7.0 [facility] Comment on above: Performed By: #### C BC #### [facility] [address] [place] [address] Dr. Rene De Jesus Erythrocyte distribution width (RBC) [Ratio] 13.1 % Normal 11.0-15.0 [facility] Comment on above: Performed By: #### C BC #### [facility] [address] [place] [address] Dr. Rene De Jesus Hematocrit (Bld) [Volume fraction] 40.9 % Normal 36.0-48.0 [facility] Comment on above: Performed By: #### C BC #### [facility] [address] [place] [address] Dr. Rene De Jesus Hemoglobin (Bld) [Mass/Vol] 13.2 g/dL Normal 12.0-16.0 [facility] Comment on above: Performed By: #### C BC #### [facility] [address] [place] [address] Dr. Rene De Jesus IG # 0.01 10e3/ul Normal 0.00-0.03 [facility] Comment on above: Performed By: #### C BC #### [facility] [address] [place] [address] Dr. Rene De Jesus IG % 0.2 % Normal 0.0-0.5 [facility] Comment on above: Performed By: #### C BC #### [facility] [address] [place] [address] Dr. Rene De Jesus LYMPH # 2.4 103/ul Normal 1.2-3.8 [facility] Comment on above: Performed By: #### C BC #### [facility] [address] [place] [address] Dr. Rene De Jesus Lymphocytes/100 WBC (Bld) 44.5 % Normal 20.5-60.0 [facility] Comment on above: Performed By: #### C BC #### [facility] [address] [place] [address] Dr. Rene De Jesus MANUAL DIFF REQ NO Normal [facility] Comment on above: Performed By: #### C BC #### [facility] [address] [place] [address] Dr. Rene De Jesus MCH (RBC) [Entitic mass] 29.2 pg Normal 26.7-34.0 [facility] Comment on above: Performed By: #### C BC #### [facility] [address] [place] [address] Dr. Rene De Jesus MCHC (RBC) [Mass/Vol] 32.3 g/dL Normal 29.9-35.2 [facility] Comment on above: Performed By: #### C BC #### [facility] [address] [place] [address] [address] Rene De Jesus MCV (RBC) [Entitic vol] 90.5 fL Normal 81.0-99.0 [facility] Comment on above: Performed By: #### C BC #### [facility] [address] [place] [address] Dr. Rene De Jesus MONO # 0.6 103/ul Normal 0.3-0.8 [facility] Comment on above: Performed By: #### C BC #### [facility] [address] [place] [address] Dr. Rene De Jesus Monocytes/100 WBC (Bld) 12.1 % Critically high 1.7-12.0 [facility] Comment on above: Performed By: #### C BC #### [facility] [address] [place] [address] Dr. Rene De Jesus NEUT # 2.2 103/ul Normal 1.4-6.5 [facility] Comment on above: Performed By: #### C BC #### [facility] [address] [place] [address] Dr. Rene De Jesus Neutrophils/100 WBC (Bld) 41.1 % Critically low 43.0-75.0 [facility] Comment on above: Performed By: #### C BC #### [facility] [address] [place] [address] Dr. Rene De Jesus Platelet mean volume (Bld) [Entitic vol] 10.5 fL Normal 9.5-13.5 [facility] Comment on above: Performed By: #### C BC #### [facility] [address] [place] [address] Dr. Rene De Jesus PLT 263 103/ul Normal 150-450 [facility] Comment on above: Performed By: #### C BC #### [facility] [address] [place] [address] Dr. Rene De Jesus RBC 4.52 106/ul Normal 4.20-5.40 [facility] Comment on above: Performed By: #### C BC #### [facility] [address] [place] [address] Dr. Rene De Jesus WBC 5.3 103/ul Normal 4.0-11.0 [facility] Comment on above: Performed By: #### C BC #### [facility] [address] [place] [address] Dr. Rene De Jesus PROF 14(COMP METB)on 022 Albumin [Mass/Vol] 3.9 g/dL Normal 3.4-5.0 [facility] Comment on above: Performed By: #### T ZEN, CMP #### [facility] [address] [place] [address] Dr. Rene De Jesus Albumin/Globulin [Mass ratio] 1.2 {ratio} Normal [facility] Comment on above: Performed By: #### T SH, CMP #### [facility] [address] [place] [address] Dr. Rene De Jesus ALP [Catalytic activity/Vol] 71 U/L Normal 46-116 [facility] Comment on above: Performed By: #### T SH, CMP #### [facility] [address] [place] [address] Dr. Rene De Jesus ALT [Catalytic activity/Vol] 21 U/L Normal 14-59 [facility] Comment on above: Performed By: #### T ZEN, CMP #### [facility] [address] [place] [address] Dr. Rene De Jesus Anion gap [Moles/Vol] 11.3 mmol/L Normal [facility] Comment on above: Performed By: #### T SH, CMP #### [facility] [address] [place] [address] Dr. Rene De Jesus AST [Catalytic activity/Vol] 15 U/L Normal 15-37 [facility] Comment on above: Performed By: #### T ZEN, CMP #### [facility] [address] [place] [address] Dr. Rene De Jesus Bilirubin [Mass/Vol] 0.3 mg/dL Normal 0.2-1.0 [facility] Comment on above: Performed By: #### T SH, CMP #### [facility] [address] [place] [address] Dr. Rene De Jesus Calcium [Mass/Vol] 8.9 mg/dL Normal 8.5-10.1 [facility] Comment on above: Performed By: #### T SH, CMP #### [facility] [address] [place] [address] Dr. Rene De Jesus Chloride [Moles/Vol] 102 mmol/L Normal 98-107 [facility] Comment on above: Performed By: #### T SH, CMP #### [facility] [address] [place] [address] Dr. Rene De Jesus CO2 [Moles/Vol] 30.7 mmol/L Normal 21.0-32.0 [facility] Comment on above: Performed By: #### T ZEN, CMP #### [facility] [address] [place] [address] Dr. Rene De Jesus Creatinine [Mass/Vol] 0.69 mg/dL Normal 0.55-1.02 [facility] Comment on above: Performed By: #### T SH, CMP #### [facility] [address] [place] [address] Dr. Rene De Jesus EGFR-AF [place] >60 Normal >=60 [facility] Comment on above: Performed By: #### T SH, CMP #### [facility] [address] [place] [address] Dr. Reen De Jesus EGFR-NON AF [place] >60 Normal >=60 [facility] Comment on above: Performed By: #### T SH, CMP #### [facility] [address] [place] [address] Dr. Rene De Jesus Globulin (S) [Mass/Vol] 3.3 g/dL Normal [facility] Comment on above: Performed By: #### T SH, CMP #### [facility] [address] [place] [address] Dr. Rene De Jesus Glucose [Mass/Vol] 96 mg/dL Normal 74-106 [facility] Comment on above: Performed By: #### T SH, CMP #### [facility] [address] [place] [address] Dr. Rene De Jesus Potassium [Moles/Vol] 4.0 mmol/L Normal 3.5-5.1 [facility] Comment on above: Performed By: #### T SH, CMP #### [facility] [address] [place] [address] Dr. Rene De Jesus Protein [Mass/Vol] 7.2 g/dL Normal 6.4-8.2 [facility] Comment on above: Performed By: #### T SH, CMP #### [facility] [address] [place] [address] Dr. Rene De Jesus Sodium [Moles/Vol] 140 mmol/L Normal 136-145 [facility] Comment on above: Performed By: #### T SH, CMP #### [facility] [address] [place] [address] Dr. Rene De Jesus Urea nitrogen [Mass/Vol] 18.0 mg/dL Normal 7.0-18.0 [facility] Comment on above: Performed By: #### T SH, CMP #### [facility] [address] [place] [address] Dr. Rene De Jesus Urea nitrogen/Creatinine [Mass ratio] 26.1 mg/mg Normal [facility] Comment on above: Performed By: #### T ZEN, CMP #### [facility] [address] [place] [address] Dr. Rene De Jesus TSHon 03-20-2022 TSH 2.033 uIU/mL Normal 0.358-3.740 [facility] Comment on above: Performed By: #### T SH, CMP #### [facility] [address] [place] [address] Dr. Rene De Jesus XR foot RT min 3V*on 022 XR foot RT min 3V* [facility] [employer] Other XR foot RT min 3V* [facility] [employer] Other XR foot RT min 3V* [address] [place] [employer] Other XR foot RT min 3V* [place] [address] [employer] Other XR foot RT min 3V* XRay Report [employer] Other XR foot RT min 3V* Signed [employer] Other XR foot RT min 3V* Patient: Edna Sultana MR#: [id number] [employer] Other XR foot RT min 3V* 2916 [employer] Other XR foot RT min 3V* : 1965 Acct:[id number] [employer] Other XR foot RT min 3V* Age/Sex: 56 / F ADM Date: 01/28/22 [employer] Other XR foot RT min 3V* Loc: XDUCLY Room: Type: [facility] [employer] Other XR foot RT min 3V* Attending Dr: Shara Cutler [facility] [employer] Other XR foot RT min 3V* Copies to: SHARA CUTLER [email or web address] Other XR foot RT min 3V* Ordering Provider: SHARA CUTLER [facility] [employer] Other XR foot RT min 3V* Date of Service: 01/28/22 [employer] Other XR foot RT min 3V* XR/XR foot RT min 3V*: Injury of right foot, initial encounter [employer] Other XR foot RT min 3V* 3 viewsRIGHT foot plain film [employer] Other XR foot RT min 3V* COMPARISON:None [facility] [employer] Other XR foot RT min 3V* HISTORY:RIGHT foot injury. [employer] Other XR foot RT min 3V* No acute fracture, dislocation or focal soft tissue abnormality seen. Chronic deformity of the 5th [employer] Other XR foot RT min 3V* metatarsal identified. [employer] Other XR foot RT min 3V* XR/XR foot RT min 3V* [employer] Other XR foot RT min 3V* IMPRESSION:No acute findings [employer] Other XR foot RT min 3V* Impression dictated by: Lukas Nicole M.D.01/28/2022 3:27 PM [employer] Other XR foot RT min 3V* Dictation Location: [place] [address] [employer] Other XR foot RT min 3V* Transcribed By: PWS 01/28/22 [facility] [employer] Other XR foot RT min 3V* Dictated By: Lukas Nicole DO 01/28/22 [facility] [employer] Other XR foot RT min 3V* Signed By: [employer] Other XR foot RT min 3V* 01/28/[address] [place] [address] [employer] [address] ABD/PELVIS WO CONon 08-01 CT [...] MARGO ELLIOTT Date: 2021-08-01 02:33 Normal [facility] ER URINE PROFILEon 2 Bilirubin Ql (U) Negative Normal NEGATIVE [facility] Comment on above: Performed By: #### E RUR #### [facility] [address] [place] [address] Dr. Rene De Jesus Clarity (U) CLEAR Normal CLEAR [facility] Comment on above: Performed By: #### E RUR #### [facility] [address] [place] [address] Dr. Rene De Jesus Color (U) YELLOW Normal YELLOW [facility] Comment on above: Performed By: #### E RUR #### [facility] [address] [place] [address] Dr. Rene SOLOMON A micrscopic examination will be performed if indicated. Normal [facility] Comment on above: Performed By: #### E RUR #### [facility] [address] [place] [address] Dr. Rene De Jesus Glucose Ql (U) Negative Normal NEGATIVE [facility] Comment on above: Performed By: #### E RUR #### [facility] [address] [place] [address] Dr. Rene De Jesus Hemoglobin Ql (U) Negative Normal NEGATIVE [facility] Comment on above: Performed By: #### E RUR #### [facility] [address] [place] [address] Dr. Rene De Jesus Ketones Ql (U) Negative Normal NEGATIVE [facility] Comment on above: Performed By: #### E RUR #### [facility] [address] [place] [address] Dr. Rene De Jesus LEUKOCYTES Negative Normal NEGATIVE [facility] Comment on above: Performed By: #### E RUR #### [facility] [address] [place] [address] Dr. Rene De Jesus Nitrite Ql (U) Negative Normal NEGATIVE [facility] Comment on above: Performed By: #### E RUR #### [facility] [address] [place] [address] Dr. Rene De Jesus pH (U) 7.5 [pH] Normal 5-9 [facility] Comment on above: Performed By: #### E RUR #### [facility] [facility] [address] [place] [address] Dr. Rene De Jesus SPEC GRAVITY 1.015 Normal 1.005-<=1.[address] [place] [address] Comment on above: Performed By: #### E RUR #### [facility] [address] [place] [address] Dr. Rene De Jesus UA PROTEIN Negative Normal NEGATIVE/ TRACE [facility] Comment on above: Performed By: #### E RUR #### [facility] [address] [place] [address] Dr. Rene De Jesus UR MICRO IND NOT INDICATED Normal [facility] Comment on above: Performed By: #### E RUR #### [facility] [address] [place] [address] Dr. Rene De Jesus Urobilinogen Qn (U) 0.2 {Raman'U}/dL Normal 0.2 - 1. 0 [facility] Comment on above: Performed By: #### E RUR #### [facility] [address] [place] [address] Dr. Rene De Jesus Otheron 09-06-2020 BILIRUBIN UA (POCT) Negative Negative Miguelito land [facility] CLARITY UA (POCT) Clear [facility] COLOR UA (POCT) Yellow [facility] GLUCOSE UA (POCT) Negative Negative mg/dL [facility] HEMOGLOBIN/BLOOD UA (POCT) Negative Negative [facility] KETONE UA (POCT) Negative Negative mg/dL [facility] LEUKOCYTES UA (POCT) Negative Negative [facility] NITRITE UA (POCT) Negative Negative [facility] PH UA (POCT) 8.5 Abnormal 4.5 - 8.[address] [facility] Protein Ql (U) Negative Negative mg/dL [facility] SPECIFIC GRAVITY UA (POCT) 1.020 1.005 - 1.[address] [facility] UROBILINOGEN UA (POCT) 0.2 E.U./dL Normal E.U./dL [facility] ANTI-SSAon 01-19-2019 ANTI-SSA <0.2 Normal [facility] Comment on above: Result Comment: REF VALUES < 1.0 = NEGATIVE >=1.0 = POSITIVE Performed By: #### A -SSA #### [facility] [address] [place] [address] ANTI-SSBon 01-19-2019 ANTI-SSB <0.2 Normal [facility] Comment on above: Result Comment: REF VALUES < 1.0 = NEGATIVE >=1.0 = POSITIVE Performed By: #### A -SSB #### [facility] [address] [place] [address] C-REACTIVE PROTEINon 019 CRP [Mass/Vol] 0.13 mg/dL Normal [facility] Comment on above: Result Comment: REF VALUE < 1.00 Performed By: #### C RP #### [facility] [address] [place] [address] SEDIMENTATION RATE, ERYTHROC YTEon 01-19-2019 SEDIMENTATION RATE, ERYTHROCYTE 3 mm/h Normal 0 - 30 [facility] Comment on above: Performed By: #### E SRWS #### [facility] [address] [place] [address] Vital Signs Date Time Vital Sign Value Performing Clinician Facility 04-20-2024 13:18-0400 Blood Pressure Location Florentin NEVILLE [facility] 04-20-2024 13:18-0400 Diastolic blood pressure 106 mm[Hg] Florentin NILL [facility] 04-20-2024 13:18-0400 Heart rate 72 /min Florentin NILL [facility] 04-20-2024 13:18-0400 Respiratory rate 16 /min Florentin WONGL [facility] 04-20-2024 13:18-0400 Systolic blood pressure 144 mm[Hg] Florentin WONGL [facility] 04-15-2024 11:02-0400 Body height 177.8 cm Suzanne Marlen DO Work Phone: [facility] 04-15-2024 11:02-0400 Body mass index (BMI) [Ratio] 22.1 kg/m2 Suzanne Marlen DO Work Phone: [facility] 04-15-2024 11:02-0400 Body weight 69.85 kg Suzanne Marlen DO Work Phone: [facility] 04-15-2024 11:02-0400 Diastolic blood pressure 86 mm[Hg] Suzanne Marlen DO Work Phone: [facility] 04-15-2024 11:02-0400 Heart rate 83 /min Suzanne Marlen DO Work Phone: [facility] 04-15-2024 11:02-0400 SaO2% (BldA) [Mass fraction] 98 % Suzanne Marlen DO Work Phone: [facility] 04-15-2024 11:02-0400 Systolic blood pressure 134 mm[Hg] Suzanne Marlen DO Work Phone: [facility] 03-24-2024 15:02-0400 Body height 177.16 cm [facility] 03-24-2024 15:02-0400 Body mass index (BMI) [Ratio] 22.5 kg/m2 [facility] 03-24-2024 15:02-0400 Body temperature 97.3 [degF] [facility] 03-24-2024 15:02-0400 Body weight 70.76 kg [facility] 03-24-2024 15:02-0400 Diastolic blood pressure 80 mm[Hg] [facility] 03-24-2024 15:02-0400 Heart rate 77 /min [facility] 03-24-2024 15:02-0400 SaO2% (BldA) [Mass fraction] 98 % [facility] 03-24-2024 15:02-0400 Systolic blood pressure 124 mm[Hg] [facility] 03-23-2024 14:54-0400 Body height 180.3 cm Janna Gilman MD Work Phone: [facility] 03-23-2024 14:54-0400 Body mass index (BMI) [Ratio] 21.59 kg/m2 Janna Gilman MD Work Phone: [facility] 03-23-2024 14:54-0400 Body weight 70.2 kg Janna Gilman MD Work Phone: [facility] 03-23-2024 14:54-0400 Diastolic blood pressure 92 mm[Hg] Janna Gilman MD Work Phone: [facility] 03-23-2024 14:54-0400 Heart rate 95 /min Janna Gilman MD Work Phone: [facility] 03-23-2024 14:54-0400 SaO2% (BldA) [Mass fraction] 100 % Janna Gilman MD Work Phone: [facility] 03-23-2024 14:54-0400 Systolic blood pressure 156 mm[Hg] Janna Gilman MD Work Phone: [facility] 12-24-2023 10:31-0400 Body height 177.16 cm [facility] 12-24-2023 10:31-0400 Body mass index (BMI) [Ratio] 21.8 kg/m2 [facility] 12-24-2023 10:31-0400 Body temperature 98.1 [degF] [facility] 12-24-2023 10:31-0400 Body weight 68.49 kg [facility] 12-24-2023 10:31-0400 Diastolic blood pressure 82 mm[Hg] [facility] 12-24-2023 10:31-0400 Heart rate 87 /min [facility] 12-24-2023 10:31-0400 SaO2% (BldA) [Mass fraction] 97 % [facility] 12-24-2023 10:31-0400 Systolic blood pressure 136 mm[Hg] [facility] 12-12-2023 10:35-0400 Body height 180.3 cm Abioduncandi Langleyry DO Work Phone: [facility] 12-12-2023 10:35-0400 Body mass index (BMI) [Ratio] 22.04 kg/m2 Abiodun Eyad DO Work Phone: [facility] 12-12-2023 10:35-0400 Body weight 71.67 kg Abiodun Eyad DO Work Phone: [facility] 12-12-2023 10:35-0400 Respiratory rate 12 /min Abiodun Eyad DO Work Phone: [facility] 10-21-2023 08:07-0400 Body height 180.3 cm Abiodun Eyad DO Work Phone: [facility] 10-21-2023 08:07-0400 Body mass index (BMI) [Ratio] 22.04 kg/m2 Abiodun Eyad DO Work Phone: [facility] 10-21-2023 08:07-0400 Body weight 71.67 kg Abiodun Eyad DO Work Phone: [facility] 10-21-2023 08:07-0400 Respiratory rate 12 /min Abiodun Eyad DO Work Phone: [facility] 09-30-2023 10:22-0400 Body height 179.1 cm [facility] 09-30-2023 10:22-0400 Body mass index (BMI) [Ratio] 22.48 kg/m2 Pcr Lpn Care Manager [facility] 09-30-2023 10:22-040 Body weight 72.12 kg Pcr Lpn Care Manager [facility] 09-30-2023 10:22-0400 Diastolic blood pressure 64 mm[Hg] Pcr Lpn Care Manager [facility] 09-30-2023 10:22-0400 Systolic blood pressure 120 mm[Hg] Pcr Lpn Care Manager [facility] 05-22-2023 11:30-0500 Body height 177.16 cm Yannick Velázquez Other [facility] Other 05-22-2023 11:30-0500 Body mass index (BMI) [Ratio] 22.4 kg/m2 Yannick Velázquez Other [facility] Other 05-22-2023 11:30-0500 Body temperature 98.5 [degF] Yannick Velázquez Other [facility] Other 05-22-2023 11:30-0500 Body weight 70.31 kg Yannick Velázquez Other [facility] Other 05-22-2023 11:30-0500 Diastolic blood pressure 88 mm[Hg] Yannick Velázquez Other [facility] Other 05-22-2023 11:30-0500 Respiratory rate 18 /min Yannick Velázquez Other [facility] Other 05-22-2023 11:30-0500 SaO2% (BldA) [Mass fraction] 98 % Yannick Velázquez Other [facility] Other 05-22-2023 11:30-0500 Systolic blood pressure 138 mm[Hg] Yannick Velázquez Other [facility] Other 03-19-2023 15:20-0400 Body height 177.16 cm Victorina Blades Other [facility] Other 03-19-2023 15:20-0400 Body mass index (BMI) [Ratio] 23.26 kg/m2 Victorina Blades Other [facility] Other 03-19-2023 15:20-0400 Body weight 73.03 kg Victorina Blades Other [facility] Other 03-19-2023 15:20-0400 Diastolic blood pressure 84 mm[Hg] Victorina Blades Other [facility] Other 03-19-2023 15:20-0400 Systolic blood pressure 130 mm[Hg] Victorina Blades Other [facility] Other 02-23-2023 13:27-0400 Body height 177.8 cm DO Yannick Velázquez Work Phone: [facility] 02-23-2023 13:27-0400 Body temperature 99 [degF] DO Yannick Velázquez Work Phone: [facility] 02-23-2023 13:27-0400 Body weight 72.05 kg DO Yannick Velázquez Work Phone: [facility] 02-23-2023 13:27-0400 Diastolic blood pressure 95 mm[Hg] DO Yannick Velázquez Work Phone: [facility] 02-23-2023 13:27-0400 Heart rate 101 /min DO Yannick Velázquez Work Phone: [facility] 02-23-2023 13:27-0400 Respiratory rate 18 /min DO Yannick Velázquez Work Phone: [facility] 02-23-2023 13:27-0400 SaO2% (BldA) [Mass fraction] 98 % DO Yannick Velázquez Work Phone: [facility] 02-23-2023 13:27-0400 Systolic blood pressure 152 mm[Hg] DO Yannick Velázquez Work Phone: [facility] 02-12-2023 10:00-0400 Body height 177.16 cm Victorina Blades Other [facility] Other 02-12-2023 10:00-0400 Body mass index (BMI) [Ratio] 23.41 kg/m2 Victorina Blades Other [facility] Other 02-12-2023 10:00-0400 Body weight 73.48 kg Victorina Blades Other [facility] Other 02-12-2023 10:00-0400 Diastolic blood pressure 82 mm[Hg] Victorina Blades Other [facility] Other 02-12-2023 10:00-0400 Systolic blood pressure 120 mm[Hg] Victorina Blades Other [facility] Other 01-21-2023 09:10-0400 Body height 177.16 cm Tonia Sandoval Other [facility] Other 01-21-2023 09:10-0400 Body mass index (BMI) [Ratio] 23.84 kg/m2 Tonia Jaime Other [facility] Other 01-21-2023 09:10-0400 Body temperature 97.6 [degF] Tonia Sandoval Other [facility] Other 01-21-2023 09:10-0400 Body weight 74.84 kg Tonia Jaime Other [facility] Other 01-21-2023 09:10-0400 Diastolic blood pressure 88 mm[Hg] Tonia Sandoval Other [facility] Other 01-21-2023 09:10-0400 Respiratory rate 18 /min Tonia Sandoval Other [facility] Other 01-21-2023 09:10-0400 SaO2% (BldA) [Mass fraction] 99 % Tonia Sandoval Other [facility] Other 01-21-2023 09:10-0400 Systolic blood pressure 125 mm[Hg] Tonia Sandoval Other [facility] Other 12-20-2022 08:10-0400 Body height 177.16 cm Yannick Velázquez Other [facility] Other 12-20-2022 08:10-0400 Body mass index (BMI) [Ratio] 23.55 kg/m2 Yannick Velázquez Other [facility] Other 12-20-2022 08:10-0400 Body temperature 98.6 [degF] Yannick Velázquez Other [facility] Other 12-20-2022 08:10-0400 Body weight 73.94 kg Yannick Velázquez Other [facility] Other 12-20-2022 08:10-0400 Diastolic blood pressure 70 mm[Hg] Yannick Velázquez Other [facility] Other 12-20-2022 08:10-0400 Respiratory rate 20 /min Yannick Velázquez Other [facility] Other 12-20-2022 08:10-0400 SaO2% (BldA) [Mass fraction] 97 % Yannick Velázquez Other [facility] Other 12-20-2022 08:10-0400 Systolic blood pressure 110 mm[Hg] Yannick Velázquez Other [facility] Other 07-19-2022 13:30-0500 Body height 177.16 cm Yannick Velázquez Other [facility] Other 07-19-2022 13:30-0500 Body mass index (BMI) [Ratio] 24.2 kg/m2 Yannick Velázquez Other [facility] Other 07-19-2022 13:30-0500 Body temperature 97.8 [degF] Yannick Velázquez Other [facility] Other 07-19-2022 13:30-0500 Body weight 75.98 kg Yannick Velázquez Other [facility] Other 07-19-2022 13:30-0500 Diastolic blood pressure 82 mm[Hg] Yannick Velázquez Other [facility] Other 07-19-2022 13:30-0500 Respiratory rate 18 /min Yannick Velázquez Other [facility] Other 07-19-2022 13:30-0500 SaO2% (BldA) [Mass fraction] 97 % Yannick Velázquez Other [facility] Other 07-19-2022 13:30-0500 Systolic blood pressure 116 mm[Hg] Yannick Velázquez Other [facility] Other 06-24-2022 15:40-0500 Body height 177.16 cm Yannick Velázquez Other [facility] Other 01-28-2022 14:45-0400 Body height 177.16 cm Shara Cutler Other [facility] Other 01-28-2022 14:45-0400 Body mass index (BMI) [Ratio] 24.71 kg/m2 Shara Cutler Other [facility] Other 01-28-2022 14:45-0400 Body temperature 98.5 [degF] Shara Cutler Other [facility] Other 01-28-2022 14:45-0400 Body weight 77.57 kg Shara Cutler Other [facility] Other 01-28-2022 14:45-0400 Diastolic blood pressure 79 mm[Hg] Shara Cutler Other [facility] Other 01-28-2022 14:45-0400 Respiratory rate 18 /min Shara Cutler Other [facility] Other 01-28-2022 14:45-0400 SaO2% (BldA) [Mass fraction] 99 % Shara Cutler Other [facility] Other 01-28-2022 14:45-0400 Systolic blood pressure 111 mm[Hg] Shara Cutler Other [facility] Other 01-09-2022 15:20-0400 Body height 177.16 cm Yannick Velázquez Other [facility] Other 01-09-2022 15:20-0400 Body mass index (BMI) [Ratio] 25 kg/m2 Yannick Velázquez Other [facility] Other 01-09-2022 15:20-0400 Body temperature 98.1 [degF] Yannick Gisel Other [facility] Other 01-09-2022 15:20-0400 Body weight 78.47 kg Yannick Johnnakaren Other [facility] Other 01-09-2022 15:20-0400 Diastolic blood pressure 76 mm[Hg] Yannick Johnnakaren Other [facility] Other 01-09-2022 15:20-0400 Respiratory rate 18 /min Yannick Velázquez Other [facility] Other 01-09-2022 15:20-0400 SaO2% (BldA) [Mass fraction] 97 % Yannick Johnnakaren Other [facility] Other 01-09-2022 15:20-0400 Systolic blood pressure 120 mm[Hg] Yannick Velázquez Other [facility] Other 09-10-2021 12:10-0500 Body height 177.16 cm Yannick Johnnakaren Other [facility] Other 09-10-2021 12:10-0500 Body mass index (BMI) [Ratio] 24.42 kg/m2 Yannick Johnnakaren Other [facility] Other 09-10-2021 12:10-0500 Body temperature 97.9 [degF] Yannick Velázquez Other [facility] Other 09-10-2021 12:10-0500 Body weight 76.66 kg Yannick Velázquez Other [facility] Other 09-10-2021 12:10-0500 Diastolic blood pressure 80 mm[Hg] Yannick Gisel Other [facility] Other 09-10-2021 12:10-0500 Respiratory rate 16 /min Yannick Velázquez Other [facility] Other 09-10-2021 12:10-0500 SaO2% (BldA) [Mass fraction] 97 % Yannick Velázquez Other [facility] Other 09-10-2021 12:10-0500 Systolic blood pressure 118 mm[Hg] Yannick Johnnakaren Other [facility] Other 06-11-2021 12:10-0500 Body height 177.16 cm Yannick Johnnakaren Other [facility] Other 06-11-2021 12:10-0500 Body mass index (BMI) [Ratio] 23.34 kg/m2 Yannick Velázquez Other [facility] Other 06-11-2021 12:10-0500 Body temperature 97.6 [degF] Yannick Velázquez Other [facility] Other 06-11-2021 12:10-0500 Body weight 73.26 kg Yannick Velázquez Other [facility] Other 06-11-2021 12:10-0500 Diastolic blood pressure 88 mm[Hg] Yannick Gisel Other [facility] Other 06-11-2021 12:10-0500 Respiratory rate 18 /min Yannick Oropezakaren Other [facility] Other 06-11-2021 12:10-0500 SaO2% (BldA) [Mass fraction] 99 % Yannick Velázquez Other [facility] Other 06-11-2021 12:10-0500 Systolic blood pressure 122 mm[Hg] Yannick Velázquez Other [facility] Other 09-06-2020 13:39-0500 Body weight 70.76 kg [facility] 09-06-2020 13:39-0500 Height 180.3 cm [facility] Encounters Encounter Date Encounter Type Care Provider Facility Start: 05-04-2024 End: 05-06-2024 Get Medical Advice Janna Gilman MD Work Phone: Neurology Comment on above: Order for MRI Start: 04-20-2024 End: 04-20-2024 ambulatory Yannick Velázquez Facility: [place] Start: 04-20-2024 End: 04-20-2024 Patient encounter procedure Florentin NEVILLE [facility] Start: 04-15-2024 End: 04-15-2024 Bamboo flowsheet Suzanne Marlen DO Work Phone: [facility] Start: 04-15-2024 End: 04-15-2024 Bamboo flowsheet Suzanne Marlen DO Work Phone: [facility] Start: 04-15-2024 End: 04-15-2024 Office outpatient visit 25 minutes Suzanne Marlen DO Work Phone: [facility] Comment on above: AB (obstructive sle ep apnea) (Primary Dx); Hypersomnia; Sleep disturbance; Catathrenia; Sleep talking Start: 04-15-2024 End: 04-15-2024 ambulatory SUZANNE GEE Not Available Start: 03-25-2024 ambulatory Yannick Velázquez Facility:[facility] Start: 03-24-2024 End: 03-24-2024 ambulatory [facility] Work Phone: Start: 03-24-2024 End: 03-24-2024 Patient encounter procedure [facility] Work Phone: Start: 03-23-2024 Non-patient / Non-visit [facility] Work Phone: Start: 03-23-2024 End: 03-23-2024 Patient encounter procedure Janna Gilman MD Work Phone: Neurology Comment on above: Disturbance of skin sensation (Primary Dx); Fasciculation; Hyperreflexia Start: 03-23-2024 End: 03-28-2024 ambulatory Janna Gilman MD Work Phone: Neurology Comment on above: your visit summary Start: 03-23-2024 End: 03-28-2024 E-mail encounter from caregiver Janna Gilman MD Work Phone: Neurology Start: 02-04-2024 End: 02-04-2024 ambulatory REZA Islas SHERIF Not Available Start: 01-07-2024 End: 01-07-2024 ambulatory [facility] Start: 12-24-2023 End: 12-24-2023 ambulatory [facility] Work Phone: Start: 12-24-2023 End: 12-24-2023 Patient encounter procedure [facility] Work Phone: Start: 12-12-2023 End: 12-12-2023 ambulatory ABIODUN CASTANO Facility:[facility] Start: 12-12-2023 End: 12-12-2023 Patient encounter procedure Abiodun Castano DO Work Phone: [facility] Comment on above: Fasciculation (Prima ry Dx); Hyperreflexia; Degeneration of lumbar or lumbosacral intervertebral disc Start: 12-09-2023 End: 12-09-2023 ambulatory Abiodun Castano DO Work Phone: [facility] Comment on above: MRI brain cervical t horacic Start: 12-09-2023 E-mail encounter fro m caregiver Abiodun Castano DO Work Phone: [facility] Start: 12-09-2023 End: 12-09-2023 Subsequent hospital visit by physician [facility] Cookie (1.5t) Work Phone: Radiology Comment on above: 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 ] Start: 11-12-2023 Non-patient / Non-visit [facility] Phys[facility] [place] Work Phone: Start: 11-10-2023 End: 11-10-2023 ambulatory [facility] Work Phone: Start: 11-10-2023 End: 11-10-2023 Patient encounter procedure [facility] Physician [facility] Work Phone: Start: 11-06-2023 Telephone encounter Abiodun calabrese DO Work Phone: [facility] Comment on above: MRI Appointment Start: 11-05-2023 Telephone encounter Abiodun calabrese DO Work Phone: [facility] Start: 10-28-2023 Telephone encounter Abiodun calabrese DO Work Phone: [facility] Comment on above: MRI Appointment; Fol low Up Start: 10-25-2023 Non-patient / Non-visit [facility] Physician [facility] Work Phone: Start: 10-23-2023 ambulatory Abiodun rios DO Work Phone: [facility] Start: 10-23-2023 Patient encounter procedure Abiodun Castano DO Work Phone: [facility] Comment on above: Today's Appointment Start: 10-21-2023 End: 10-21-2023 ambulatory ABIODUN CASTANO Facility:[facility] Start: 10-21-2023 End: 10-21-2023 Patient encounter procedure Abiodun Castano DO Work Phone: [facility] Comment on above: Lumbar radiculopathy (Primary Dx); Hyperreflexia; Cardiac murmur; Fasciculation; Neuromuscular scoliosis of thoracic region; Chiari I malformation (HCC); Spinal stenosis of cervical region; Syringomyelia and syringobulbia (HCC); Demyelinating disease of central nervous system (HCC) Start: 10-07-2023 Non-patient / Non-visit [facility] Work Phone: Start: 09-30-2023 End: 09-30-2023 ambulatory YANNICK VELÁZQUEZ [facility] Start: 09-30-2023 End: 09-30-2023 Office outpatient visit 15 minutes Pcr Ob Lpn Care Manager [facility] Certified Nurse Lpn Care Manager - [place] Comment on above: PMB (postmenopausal bleeding) (Primary Dx); Vaginal atrophy Start: 09-24-2023 Non-patient / Non-visit [facility] [employer] Work Phone: Start: 09-17-2023 End: 09-17-2023 ambulatory [facility] Work Phone: Start: 09-17-2023 End: 09-17-2023 Patient encounter procedure [facility] Work Phone: Start: 07-30-2023 End: 07-30-2023 ambulatory REZA H SHERIF Not Available Start: 07-02-2023 End: 07-02-2023 ambulatory AKBAR [facility] Start: 06-17-2023 End: 06-17-2023 ambulatory Yannick Velázquez Other [facility] Other Start: 06-17-2023 Office outpatient vi sit 15 minutes Yannick Velázquez [facility] Start: 05-27-2023 End: 05-28-2023 ambulatory Yannick Velázquez DO Facility:[facility] Start: 05-23-2023 End: 05-23-2023 ambulatory Yannick Velázquez Other [facility] Other Start: 05-23-2023 Telephone encounter Yannick Velázquez [facility] Start: 05-22-2023 End: 05-22-2023 ambulatory Yannick Velázquez Other [facility] Other Start: 05-22-2023 Office outpatient vi sit 25 minutes Yannick Velázquez [facility] [place] Start: 04-29-2023 End: 04-29-2023 ambulatory Yannick Velázquez Other [facility] Other Start: 04-29-2023 Telephone encounter Yannick Velázquez [facility] Start: 04-16-2023 End: 04-16-2023 ambulatory Yannick Velázquez Other [facility] Other Start: 04-16-2023 [facility] Start: 04-15-2023 End: 04-15-2023 ambulatory Yannick Velázquez Other [facility] Other Start: 04-15-2023 Telephone encounter [facility] Start: 04-02-2023 End: 04-02-2023 ambulatory Yannick Velázquez Other [facility] Other Start: 04-02-2023 Telephone encounter Yannick Velázquez [facility] Start: 03-19-2023 End: 03-19-2023 ambulatory Victorina Martinez Other [facility] Other Start: 03-19-2023 Office outpatient vi sit 15 minutes Victorina Martinez [facility] Start: 03-13-2023 End: 03-13-2023 ambulatory Yannick Velázquez Other [facility] Other Start: 03-13-2023 Telephone encounter [facility] Start: 03-05-2023 End: 03-05-2023 ambulatory Yannick Velázquez Other [facility] Other Start: 03-05-2023 Telephone encounter Yannick Velázquez [facility] Start: 03-03-2023 End: 03-03-2023 ambulatory Yannick Gisel Other [facility] Other Start: 03-03-2023 Telephone encounter [facility]ikc [facility] Start: 02-27-2023 End: 02-27-2023 ambulatory Yannick Oropezakaren Facility:[facility] Start: 02-27-2023 End: 02-27-2023 ambulatory DO Yannick Velázquez Work Phone: [facility] Work Phone: Start: 02-27-2023 End: 02-27-2023 Patient encounter procedure DO Yannick Velázquez Work Phone: [facility] [place] Work Phone: Start: 02-23-2023 End: 02-23-2023 Emergency department patient visit Yannick Velázquez Facility:[facility] Start: 02-23-2023 End: 02-23-2023 Emergency department patient visit DO Yannick Velázquez Work Phone: [facility] Work Phone: Start: 02-14-2023 End: 02-14-2023 ambulatory Victorina Blades Other [employer] Other Start: 02-14-2023 Telephone encounter Victorina Blades F [facility] Neuro[facility] Start: 02-12-2023 End: 02-12-2023 ambulatory Victorina Blades Other [employer] Other Start: 02-12-2023 Office outpatient vi sit 15 minutes Victorina Blades [facility] Neurosurgery Start: 02-10-2023 End: 02-10-2023 ambulatory Yannick Velázquez Other [employer] Other Start: 02-10-2023 Telephone encounter Yannick Velázquez [facility] [place] Start: 02-05-2023 End: 02-05-2023 ambulatory Yannick Velázquez Other [employer] Other Start: 02-05-2023 Telephone encounter Yannick Velázquez [facility] [place] Start: 01-21-2023 End: 01-21-2023 ambulatory Tonia Sandoval Other [employer] Other Start: 01-21-2023 Office outpatient vi sit 25 minutes Tonia Sandoval [facility] [place] Start: 01-08-2023 End: 01-08-2023 ambulatory Yannick Velázquez Other [employer] Other Start: 01-08-2023 Telephone encounter Yannick Velázquez [facility] [place] Start: 01-03-2023 End: 01-03-2023 ambulatory Yannick Velázquez Other [employer] Other Start: 01-03-2023 Telephone encounter Yannick Velázquez [facility] [place] Start: 01-02-2023 Telephone encounter Yannick Velázquez [facility] [place] Start: 01-02-2023 End: 01-02-2023 ambulatory Yannick Velázquez Facility:[facility] Start: 01-02-2023 End: 01-02-2023 ambulatory DO Yannick Oropezakaren Work Phone: [facility] Work Phone: Start: 01-02-2023 End: 01-02-2023 Patient encounter procedure DO Yannick Velázquez Work Phone: [facility] [place] Work Phone: Start: 12-20-2022 End: 12-20-2022 ambulatory Yannick Velázquez Other [employer] Other Start: 12-20-2022 Office outpatient vi sit 25 minutes Yannick Velázquez [facility] [place] Start: 09-24-2022 End: 09-24-2022 ambulatory Victorina Martinez Other [employer] Other Start: 09-24-2022 Telephone encounter Victorina Andino [facility] [employer] [facility] Start: 09-16-2022 End: 09-16-2022 ambulatory Yannick Velázquez Other [employer] Other Start: 09-16-2022 Office outpatient vi sit 10 minutes Yannick Velázquez [facility] [place] Start: 09-16-2022 Telephone encounter Yannick Velázquez [facility] [place] Start: 08-29-2022 End: 08-29-2022 ambulatory Yannick Velázquez Other [employer] Other Start: 08-29-2022 Telephone encounter Yannick Velázquez [facility] [place] Start: 08-28-2022 End: 08-28-2022 ambulatory Yannick Velázquez Facility:[facility] Start: 08-28-2022 End: 08-28-2022 ambulatory DO Yannick Velázquez Work Phone: [facility] Work Phone: Start: 08-28-2022 End: 08-28-2022 Patient encounter procedure DO Yannick Velázquez Work Phone: [facility] [place] Work Phone: Start: 08-07-2022 End: 08-07-2022 ambulatory Yannick Velázquez Other [employer] Other Start: 08-07-2022 Telephone encounter Yannick Velázquez [facility] [place] Start: 07-24-2022 End: 07-24-2022 ambulatory Yannick Velázquez Other [employer] Other Start: 07-24-2022 Telephone encounter Yannick Velázquez [facility] [place] Start: 07-19-2022 End: 07-19-2022 ambulatory Yannick Velázquez Other [employer] Other Start: 07-19-2022 Office outpatient vi sit 25 minutes Yannick Velázquez [facility] [place] Start: 07-03-2022 End: 07-04-[address] YANNICK VELÁZQUEZ Facility:[facility] Start: 07-03-2022 Telephone encounter Yannick Velázquez [facility] [place] Start: 06-24-2022 End: 06-24-2022 ambulatory Yannick Velázquez Other [employer] Other Start: 06-24-2022 Office outpatient vi sit 15 minutes Yannick Velázquez [facility] [place] Start: 06-24-2022 Telephone encounter Yannick Velázquez [facility] [place] Start: 05-29-2022 End: 05-29-2022 ambulatory Yannick Velázquez Other [employer] Other Start: 05-29-2022 Telephone encounter Yannick Velázquez [facility] [place] Start: 05-09-2022 End: 05-09-2022 ambulatory Yannick Velázquez Other [employer] Other Start: 05-09-2022 Telephone encounter Yannick Velázquez [facility] [place] Start: 04-10-2022 End: 04-10-2022 ambulatory Yannick Velázquez Other [employer] Other Start: 04-10-2022 Office outpatient vi sit 15 minutes Yannick Velázquez [facility] [place] Start: 03-26-2022 End: 03-26-2022 ambulatory Yannick Velázquez Other [employer] Other Start: 03-26-2022 Office outpatient vi sit 15 minutes Yannick Velázquez [facility] [place] Start: 03-20-2022 End: 03-21-[address] YANNICK VELÁZQUEZ Facility:[facility] Start: 02-15-2022 End: 02-15-2022 ambulatory Yannick Velázquez Other [employer] Other Start: 02-15-2022 Telephone encounter Yannick Velázquez [facility] [place] Start: 01-28-2022 End: 01-28-2022 Patient encounter procedure STEM SETTER-C Shara Cutler Work Phone: [facility] [place] Start: 01-28-2022 End: 01-28-2022 ambulatory Shara He Other [employer] Other Start: 01-28-2022 Office outpatient vi sit 15 minutes Shara He [facility] [place] Start: 01-11-2022 End: 01-11-2022 ambulatory Yannick Velázquez Other [employer] Other Start: 01-11-2022 Telephone encounter Yannick Velázquez [facility] [place] Start: 01-10-2022 End: 01-11-[address] YANNICK VELÁZQUEZ Facility: Start: 01-09-2022 End: 01-09-2022 ambulatory Yannick Velázquez Other [employer] Other Start: 01-09-2022 Office outpatient vi sit 15 minutes Yannick Velázquez [facility] [place] Start: 01-08-2022 End: 01-08-2022 ambulatory Yannick Velázquez Other [employer] Other Start: 01-08-2022 Telephone encounter Yannick Velázquez [facility] [place] Start: 12-24-2021 End: 12-24-2021 ambulatory Yannick Velázquez Other [employer] Other Start: 12-24-2021 Telephone encounter Yannick Velázquez [facility] [place] Start: 12-11-2021 End: 12-11-2021 ambulatory Yannick Velázquez Other [employer] Other Start: 12-11-2021 Office outpatient vi sit 15 minutes Yannick Velázquez [facility] [place] Start: 12-11-2021 Telephone encounter Yannick Velázquez [facility] [place] Start: 09-10-2021 End: 09-10-2021 ambulatory Yannick Velázquez Other [employer] Other Start: 09-10-2021 Office outpatient vi sit 15 minutes Yannick Velázquez [facility] Start: 08-01-2021 End: 08-01-[address] YANNICK VELÁZQUEZ Facility: Start: 06-11-2021 End: 06-11-2021 ambulatory Yannick Velázquez Other [facility] [employer] Other Start: 06-11-2021 Office outpatient vi sit 15 minutes Yannick Velázquez [facility] Start: 09-06-2020 End: 09-06-2020 Patient encounter procedure David Keane Work Phone: Urology Comment on above: Dysuria; Cystocele with prolapse; Nocturia Procedures Date Procedure Procedure Detail Performing Clinician Start: 12-09-2023 Mri brain brain stem w/o w/contrast material Abiodun Castano DO Work Phone: Start: 02-27-2023 MR lumbar spine wo con [...] [Identifier] in Cervix by Cyto stain Pcr Lpn Care Manager Start: 01-28-2022 X-ray of right foot STEM SETTER -C Shara Cutler Work Phone: Start: 09-06-2020 Urnls dip stick/tabl et rgnt auto w/o microscopy David Keane Work Phone: Start: 02-17-2020 Cystoscopy Florentin ONEILL LL section Florentin NIL L Excision of bunion Florentin Giordano ILL Ligation of fallopian tube Shani NEVILLE Lysis of adhesions Florentin Giordano TWILA Tonsillectomy Florentin NEVILLE Plan of Treatment Date Care Activity Detail Author Start: 12-19-2026 DTaP,Tdap and Td Vac cines (2 - Td or Tdap) DTaP,Tdap and Td Vaccines (2 - Td or Tdap) [facility] Start: 12-19-2026 Urine microalbumin profile DTaP,Tdap,Td Vaccine (2 - Td or Tdap) [facility] Start: 05-22-2025 Screening for malign ant neoplasm of cervix Pap Smear [facility] Start: 01-06-2025 Screening for malign ant neoplasm of breast Mammogram Screening [facility] Start: 09-29-2024 Adult BMI Screening Adult BMI Screen ing [facility] Start: 09-29-2024 Tobacco Screening Tobacco Screening [facility] Start: 08-04-2024 End: 08-04-2024 Patient encounter procedure 08/04/2024 3:20 PM EST Office Visit [facility] [address] [facility] [address] [place] [address] Reza Gorman MD [address] [facility] [address] [place] [address] [facility] Start: 05-31-2024 End: 05-31-2024 Patient encounter procedure 05/31/2024 1:40 PM EST Office Visit [facility] [address] [place] [id number] Ivy Garcia, [place] [address] [place], [place] [facility] Start: 05-25-2024 End: 05-25-2024 Patient encounter procedure 05/25/2024 2:30 PM EST Office Visit [facility] [address] [place] [address] [facility] Start: 04-15-2024 End: 04-15-2025 Multiple sleep latency test Multiple sleep latency test Sleep Center Routine Hypersomnia Sleep disturbance Catathrenia Sleep talking Expected: 04/15/2024 (Approximate), Expires: 04/15/2025 [facility] Comment on above: Expected: 04/15/2024 (Approximate), Expires: 04/15/2025 Start: 04-15-2024 End: 04-15-2025 Polysomnography Polysomnography Sleep Center Routine AB (obstructive sleep apnea) Expected: 04/15/2024 (Approximate), Expires: 04/15/2025 [facility] Work Phone: Comment on above: Expected: 04/15/2024 (Approximate), Expires: 04/15/2025 Start: 04-15-2024 End: 04-15-2024 Patient encounter procedure 04/15/2024 11:00 AM EDT Office Visit [facility] [address] [address] Suzanne Gee, [address] [place], [place] [id number] Arrived [facility] Comment on above: Arrived Start: 03-24-2024 Patient referral [facility] Work Phone: Start: 03-23-2024 End: 03-23-2024 Patient encounter procedure 03/23/2024 3:00 PM EDT Office Visit Neurology [address] [id number] Janna Gilman MD [address] [place], [place] [id number] CONSULT TO NEUROLOGY Neurology Comment on above: CONSULT TO NEUROLOGY Start: 03-23-2024 End: 06-22-2024 CELIAC SCREEN WITH REFLEX [facility] Work Phone: Comment on above: Expected: 03/23/2024 , Expires: 06/22/2024 Start: 03-23-2024 End: 06-22-2024 Ceruloplasmin [Mass/volume] in Serum or Plasma [facility] Comment on above: Expected: 03/23/2024 , Expires: 06/22/2024 Start: 03-23-2024 End: 06-22-2024 COPPER BLOOD [facility] Comment on above: Expected: 03/23/2024 , Expires: 06/22/2024 Start: 03-23-2024 End: 06-22-2024 IMMUNOFIXATION SCREEN, SERUM [facility] Comment on above: Expected: 03/23/2024 , Expires: 06/22/2024 Start: 03-23-2024 End: 06-22-2024 KAPPA/SORIANO,FREE,SER [facility] Comment on above: Expected: 03/23/2024 , Expires: 06/22/2024 Start: 03-23-2024 End: 06-22-2024 Zinc [Mass/volume] in Serum or Plasma [facility] Comment on above: Expected: 03/23/2024 , Expires: 06/22/2024 Start: 03-07-2024 Covid-19 Vaccine ( season) Covid-19 Vaccine ( season) [facility] Start: 03-07-2024 Covid-19 Vaccine ( season) Covid-19 Vaccine () [facility] Start: 03-07-2024 Influenza vaccination C [facility] Start: 01-05-2024 End: 01-05-2024 Patient encounter procedure 01/05/2024 9:00 AM EDT Appointment [facility] [address] [place] [address] [facility] Start: 01-03-2024 Screening for malign ant neoplasm of breast Mammogram Screening [facility] Start: 12-12-2023 End: 12-12-2023 Patient encounter procedure 12/12/2023 10:50 AM EDT Office Visit [facility] [address] [place] [address] [place] [address] [place] [address] mri (3) follow up [facility] Comment on above: mri (3) follow up Start: 12-09-2023 End: 12-09-2023 Patient encounter procedure 12/09/2023 10:40 AM EDT Appointment Radiology [address] [place] [address] 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] Radiology Comment on above: 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 ] Start: 12-09-2023 End: 12-09-2023 Patient encounter procedure Radiology Comment on above: 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 ] Start: 11-25-2023 End: 11-25-2023 Patient encounter procedure 11/25/2023 2:10 PM EDT Office Visit [facility] [address] [place] [address] [place] [address] [place] [address] MRI follow ups [facility] Comment on above: MRI follow ups Start: 11-16-2023 End: 11-16-2023 Patient encounter procedure 11/16/2023 1:20 PM EDT Appointment [facility] Radiology MRI [address] [place] [address] 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]; Demyelinating disease of central nervous system (HCC) [G37.9] [facility] MRI Comment on above: 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 ]; Demyelinating disease of central nervous system (HCC) [G37.9] Start: 11-16-2023 End: 11-16-2023 Patient encounter procedure [facility] MRI Comment on above: 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 ]; Demyelinating disease of central nervous system (HCC) [G37.9] Start: 09-30-2023 End: 09-29-2024 US Pelvis transabdominal and transvaginal Ultrasound pelvic with transvaginal Imaging Routine PMB (postmenopausal bleeding) Expected: 09/30/2023, Expires: 09/29/2024 [facility] Work Phone: Comment on above: Expected: 09/30/2023 , Expires: 09/29/2024 Start: 07-07-2023 Behavioral Health Screening Behavioral Health Screening [facility] Start: 03-07-2023 Covid-19 Vaccine ( season) Covid-19 Vaccine ( season) [facility] Start: 03-07-2023 Influenza vaccination Influenza Vacc ine [facility] Start: 03-07-2020 Influenza vaccination INFLUENZA (#1) [facility] Start: 2016 Administration of varicella zoster vaccine Zoster (Shingles) Vaccine (1 of 2) [facility] Start: 2016 Screening for malign ant neoplasm of colon [facility] Start: 2016 SHINGRIX VACCINE (1 of 2) PATEL GRIX VACCINE (1 of 2) [facility] Start: 10-11-2011 DIABETES SCREEN DIABETES SCREEN [facility] Start: 10-11-2011 Diabetes Screening Diabetes Screenin g [facility] Start: 10-11-2011 Lipid panel Lipid Screening [facility] Start: 10-11-2011 LIPID SCREEN LIPID SCREEN [facility] Start: 10-11-2011 Screening for malign ant neoplasm of colon [facility] Start: 2006 Mammography MAMMOGRAM [facility] Start: 1996 HPV TESTING HPV TESTING [facility] Start: 1996 Screening for malign ant neoplasm of cervix HPV Testing [facility] Start: 10-11-1987 PAP TESTING PAP TESTING [facility] Start: 10-11-1987 Screening for malign ant neoplasm of cervix [facility] Start: 1985 Hepatitis B Vaccine (1 of 3 - 19+ 3-dose series) Hepatitis B Vaccine (1 of 3 - 19+ 3-dose series) [facility] Start: 1985 Urine microalbumin profile DTAP,TDAP,TD (1 - Tdap) [facility] Start: 1984 Anxiety Screening Anxiety Screening [facility] Start: 1984 Depression Screening Depression Scre ening [facility] Start: 1984 HEPATITIS C SCREENING HEPATITIS C [facility] Start: 1984 Hepatitis C screening Hepatitis C [facility] Start: 1984 HIV SCREENING HIV SCREENING [facility] Start: 1984 HIV screening HIV Screening [facility] Start: 1978 Adult depression screening assessment DEPRESSION SCREENING [facility] Comprehensive metabo lic 2000 panel - Serum or Plasma [facility] End: 06-05-2025 MR Brain WO and W contrast IV MRI BRAIN WO/W IVCON Radiology Routine Brain cyst 1 Occurrences starting 05/06/2024 until 06/05/2025 [facility] Work Phone: Comment on above: 1 Occurrences starti ng 05/06/2024 until 06/05/2025 End: 11-25-2024 MR Brain WO contrast MRI BRAIN WO IVCON Radiology Routine Hyperreflexia Demyelinating disease of central nervous system (HCC) 1 Occurrences starting 10/27/2023 until 11/25/[address] 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 I malformation (HCC) Spinal stenosis of cervical region Syringomyelia and syringobulbia (HCC) Demyelinating disease of central nervous system (HCC) 1 Occurrences starting 10/27/2023 until 11/25/2024 [facility] Work Phone: Comment on above: 1 Occurrences starti ng 10/27/2023 until 11/25/2024 End: 11-25-2024 MR Thoracic spine WO contrast MRI THORACIC SPINE WO IVCON Radiology Routine 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 Comment on above: 1 Occurrences starti ng 10/27/2023 until 11/25/2024 Patient Education Radiculopathy (DC) [facility] Work Phone: Patient referral [facility] Work Phone: T3 reverse measurement [facility] Immunizations Immunization Date Immunization Notes Care Provider Sindy sorensen 12-19-2016 tetanus toxoid, reduced diphtheria toxoid, and acellular pertussis vaccine, adsorbed Yannick Velázquez Other [facility] NEGATED: Highlighted row has not occurred!06-11-2021 influenza, seasonal, injectable Patient Objection Yannick Velázquez Other [facility] Payers Date Payer Category Payer Self-pay [id number] 2014 Unknown 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 [id number] 2014-Present PPO [id number] 2014 Unknown 1966 Unknown [id number] 1966 Unknown [id number] [id number] 1966 Unknown [id number] [id number] 1966 Unknown [id number] [id number] 1966 Unknown [id number] 2.16.840.1.967983.3.579.2.196 1966 Unknown [id number] 2.16.840.1.334975.3.579.2.1286 1966 Unknown [id number] 2.16.840.1.414963.3.579.2.1286 1966 Unknown [id number] 2.16.840.1.791117.3.579.2.1286 1966 Unknown [id number] 2.16.840.1.080315.3.579.2.1259 1966 Unknown [id number] 2.16.840.1.235311.3.579.2.1259 1966 Unknown [id number] 2.16.840.1.445389.3.579.2.1259 1966 Unknown [id number] [id number] 1959 Unknown [id number] [id number] Unknown [id number] 2.16.840.1.766405.3.579.2.531 Unknown [id number] [id number] Unknown [id number] [id number] Unknown [id number] Social History Date Type Detail Facility Start: 09-06-2020 End: 10-21-2023 Tobacco smoking status NHIS Never smoker [facility] Start: 09-06-2020 End: 10-21-2023 Tobacco use and exposure Never used [facility] Start: 09-06-2020 End: 03-23-2024 Alcohol intake Current drinker of alcohol (finding) [facility] Start: 09-06-2020 End: 12-12-2023 Alcohol intake [facility] Start: 1965 Sex Assigned At Female [facility] Exposure to SARS-CoV -2 (event) Not sure [facility] Start: 07-02-2018 End: 12-12-2023 Sex Assigned At [facility] Frequency of Alcohol Consumption Never [facility] Start: 05-08-2022 Alcohol Comment twice a month [facility] Start: 1965 Sex Assigned At Not on file [facility] Start: 09-06-2020 Gender identity Identifies as female gender (finding) [facility] Start: 09-06-2020 Sexual orientation Heterosexual (finding) [facility] Start: 03-23-2024 Alcohol Comment 1x/week [facility] How often to you hav e a drink containing alcohol? Monthly or less [facility] Start: 02-04-2024 Alcohol Comment Socially [facility] Functional Status Date Assessment Result Facility 04-20-2024 Functional Status N/A [facility] [place] Clinical Notes 06-11-2021 to 04-20-2024 Suzanne Gee, DO - 04/15/2024 11:00 AM Janna Amaro MD - 03/23/2024 4:19 PM Abiodun Cueto DO - 12/12/2023 12:16 PM Suzanna Mckeon RT(R) - 12/09/2023 9:20 AM EDT Note Date & Type Note Facility 04-20-2024 Note General Surgery Offi ce/Clinic Note Chief Complaint consultation for lipoma HPI Staff 58 year old female presents on consultation from Dr. Velázquez for lipoma of left abdomen. Reports noting mass near the underside of left rib cage approximately 1 year ago. Denies change in size since first noted. Denies soreness or tenderness. Abdominal US completed 12/2022 at [facility]. History of Present Illness 58 yo female referred for possible lipoma left abdominal wall; abdominal operations significant for and tubal ligation; patient noticed slight lump in area when lying flat; US at [facility] over 1 year ago with fatty tissue in area, possible lipoma; no pain, no change in size; no h/o other lipomas; no injury to area or overlying skin changes; no asa or NSAID use; no tobacco use; recent abd/pelvic ct scan for kidney stone, 10/2023 with no significant lipoma noted. Review of Systems PHQ Score Initial Depression Screen Score: 0 SCORE ROS - Provider Constitutional: no fever, no sweats, no weight loss. Eyes: no glasses, no blurred vision, no visual loss. ENMT: no dentures, no hoarseness, no swallowing difficulties, no hearing loss, no ear infection(s), no nose bleeds. Cardiovascular: normal blood pressure, no chest pain, regular heartbeat, no heart murmur. Respiratory: no shortness of breath, no cough, no asthma, no wheezing. Gastrointestinal: no nausea, no vomiting, no diarrhea, no constipation, no blood in stool, no change in bowel habits, no abdominal pain, no hepatitis. Genitourinary: no kidney stones, no urine infection, no dysuria. Musculoskeletal: no pain, no weakness. Skin: no changing moles, no rash, yes skin lumps. Neurologic: no seizures, no epilepsy, no headache. Psychiatric: no emotional or psychiatric problem. Heme/Lymph: no bleeding problems, no anemia, no blood clots, no transfusions. Allergy/Immunologic: no swollen lymph nodes/glands, no IV drug abuse. Other: Additional ROS info: Except as noted in the above Review of Systems and in the History of Present Illness, all other systems have been reviewed and are negative or noncontributory. Physical Exam Vitals & Measurements HR: 72(Peripheral) RR: 16 BP: 144/106 HT: 69 in HT: 176.5 cm WT: 71.6 kg WT: 157.52 lb BMI: 22.98 HEENT: normal conjunctiva, sclera clear, no scleral icterus, EOM intact, PERRLA, oral mucosa moist without lesions. Neck: trachea midline, no mass, symmetric, no thyromegaly or nodules, no adenopathy Gastrointestinal: soft, non distended, no tenderness, no masses, no palpable hernias, diastasis recti no, no hepatosplenomegaly; normal bs; left upper quadrant/flank with no discreet lipoma noted, nontender, no skin changes. Musculoskeletal: normal gait, digits and nails without infection, nodes, cyanosis, clubbing. Skin: no rashes, no lesions, no ulcers, no subcutaneous nodules, induration. Psychiatric/Neuro: oriented to time, place, person, judgement normal, affect appropriate for age, insight intact, no focal deficits. Tests: review of old records completed , Assessment/Plan 1. Subcutaneous nodule of abdominal wall (R22.2: Localized swelling, mass and lump, trunk) not palpable; possibly flat, deep lipoma, not visualized on ct scan; recommend observation for now; if enlarges or becomes symptomatic, will reevaluate; call with problems/questions. Follow-up No qualifying data available Problem List/Past Medical History Ongoing Allergic rhinitis Anxiety Chiari malformation type I Chronic pain Heart murmur Incomplete bladder emptying Microscopic hematuria Neuropathy Nocturia RLS (restless legs syndrome) Subcutaneous nodule of abdominal wall Thyroid nodule Tremor Urethral stricture Urgency of urination Vitamin B 12 deficiency Vitamin D deficiency Historical Dysuria Right flank pain Right sided abdominal pain Procedure/Surgical History Cystoscopy (02/17/2020), Bunionectomy, Caesarean section, Lysis of adhesions, Tonsillectomy, Tubal ligation. Medications Xanax 0.25 mg Tab, See Instructions, PRN Allergies Adhesive Bandage (Rash) Macrobid (Diarrhea) Social History Alcohol - Denies Alcohol Use, 04/20/2024 Substance Abuse - Denies Substance Abuse, 04/20/2024 Tobacco Never (less than 100 in lifetime) Tobacco Use:. Never Smokeless Tobacco Use:., 04/20/2024 Family History Dementia: Mother. Heart disease: Brother. Hypertension: Mother. Multiple myeloma: Father. [facility] Comment on above: Result Comment: Elec tronically Signed By: JAMIN LAZO, Florentin Lozada\Date and Time Signed: 04/20/24 15:21 EDT 04-15-2024 History of Presen t illness Narrative Images from the original note were not included. Chief Complaint Patient presents with Sleeping Problem Subjective Edna Eddy Kayy, 58 y.o., female HPI The patient states that she had a sleep study at [facility] 27 years ago. She was very tired during the day. They were trying to rule out narcolepsy. She was more diagnosed with hypersomnia. She did go into REM in 1 of the naps. She thinks that she had some apnea but was never put on a machine. She was put on ritalin for a while but did not like it. She is still very tired during the day. She goes to sleep around 10-10:30 and is asleep with in 15 minutes. She gets up around 5:30-6 , on weekends 7 am She does not feel rested when she gets up. She states that she is in bed 7-8 hours but she wakes up 6-7 times. She does not nap typically. She does not doze of driving. She can struggle through work. She states that her back and feet wake her up. When she had the sleep study she was told that she has some apnea. Her tells her that she makes a whistling noise when sleeping. She is having fasciculations throughout her body, she states they are most severe in her calves. Sleep ND Patient Symptoms Snores: Yes Wakes gasping for breath: No Dozes off if inactive: Sometimes Dozes off with activity: No Wakes a lot through the night: Yes Witnessed episodes of apnea: No Bedtime: 10pm Is it hard or easy to fall asleep: Easy takes melatonin Morning wake time: 530am-6am Do you feel rested: No Takes naps: No Feels better after napping: Sleepwalk: No Sleeptalk: Yes Vivid Dreams: Occasionally Acts out dreams: No Sleep related hallucinations: No Sleep paralysis: No Cataplexy: No Restless Leg: Yes Kicking/Jerking at night: Yes TV on while sleeping: No Smoke before bed: No Caffeine within 3 hours before bed: No CV exercise: No Past Medical History: Diagnosis Date Anemia Cystocele with prolapse 09/06/2020 Dysuria 09/06/2020 History of panic attacks Incomplete emptying of bladder 01/09/2023 Microscopic hematuria 01/09/2023 Nocturia 09/06/2020 Right flank pain 01/09/2023 Right sided abdominal pain 01/09/2023 Spinal stenosis with herniated disc L4-L5, Dr. Cazares Urinary urgency 01/09/2023 Past Surgical History: Procedure Laterality Date SECTION, CLASSIC [address] Dunn CYSTOSCOPY 02/17/2020 with urethral dilation, Dr. Duane REYNA BUNIONECTOMY Bilateral 1991 TONSILLECTOMY TUBAL LIGATION Family History Problem Relation Name Age of Onset Thyroid disease Mother Hypertension Mother Dementia Mother Cancer Father Hypertension Father Diabetes Maternal Grandmother Cancer Maternal Grandmother Cancer Maternal Grandfather Pernicious anemia Paternal Grandmother Cancer Paternal Grandfather Social History Tobacco Use Smoking status: Never Smokeless tobacco: Never Substance Use Topics Alcohol use: Yes Alcohol/week: 0.0 - 1.0 standard drinks of alcohol Comment: Socially Allergies: Nitrofurantoin and Wound dressing adhesive General: No fever or chills HEENT: No nasal congestion or runny nose Pulmonary: No shortness of breath or cough Cardiovascular: No chest pain or palpitations GI: No nausea or vomiting : No dysuria or hematuria Musculoskeletal: No new aches or pains or muscle weakness Infectious: no recurrent fevers or infections Dermatologic: No rashes or skin lesions Neurologic: No new headaches or dizziness Vitals: 04/15/24 1102 BP: 134/86 Pulse: 83 SpO2: 98% Body mass index is 22.1 kg/m . weight: 154 lb Neurologic exam: General: Normal body habitus, cooperative, pleasant Mental status: Awake, alert to person, place and time. Recent and remote memory are intact. Attention and concentration are normal. Fund of knowledge is appropriate for level of education. HEENT: NC/AT Mallampati of 2 and visualize the throat and uvula without any difficulty Cranial nerves: CN II: Visual green full to confrontation. No loss of vision CN III, IV, : pupils equal round and reactive to light. Extraocular movements intact. No ptosis present. CN V: Facial sensation is normal. CN VII: Full and symmetric facial movement. CN VIII: Hearing is normal CN IX and X: Palate elevates symmetrically. CN XI: Shoulder shrug is normal bilaterally. CN XII: Tongue is midline without atrophy or fasciculation. Speech: Clear and fluent no aphasia or dysarthria Pronator drift: Negative bilateral upper extremity Coordination: Intact, no signs of dysmetria Good finger to nose and rapid alternating movements Sensory: Sensation is intact to light, temperature and vibratory touch throughout four extremities. Motor: LUE 5/5 RUE 5/5 LLE 5/5 RLE 5/5 Tone: Physiologic, no tremor, bradykinesia or rigidity DTR: Bilateral Biceps 2/4 Bilateral BR 2/4 Bilateral Patellar 2/4 No spasticity Gait: Normal to casual gait Romberg's Negative Review and summary of old records: Assessment/Plan Diagnoses and all orders for this visit: Hypersomnia Sleep disturbance Catathrenia Sleep talking 58-year-old female with a long history of daytime hypersomnia. She was tested approximately 27 years ago for narcolepsy because she was very fatigued and sleepy during the day and could doze off. She states that she thinks she had 1 sleep onset REM period during her nap but she is unsure. She was not diagnosed with narcolepsy. 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 For short period of time she was placed on Ritalin but she did not like that so she went off of it. She continues to remain quite tired and fatigued during the day and has to struggle to stay awake at work. She thinks she did have some apneas on her original study and certainly concerned that she could have worsening obstructive sleep apnea. She also knows that she moves a lot at night. Certainly there is concern for a periodic limb movement disorder. She does have some sleep talking and it sounds like catathrenia. She needs a PSG and MSLT to assess further for narcolepsy and other sleep disturbances such as PLMD. Plan PSG to assess for sleep disturbance such as PLMD, poor sleep cycling and obstructive sleep apnea MSLT if the PSG is fairly normal to assess for narcolepsy or idiopathic hypersomnia Can consider medication pending her course Her sleep hygiene is fairly good The patient was counseled on proper sleep hygiene and adequate hours of sleep. The diagnosis was all discussed with the patient. All questions were answered and they agreed with the treatment plan. Patient will call if there are any new issues or questions. Pt has been fully educated on their diagnosis, treatment options, follow up plan, and return instructions Return to clinic: 2 months documented in this encounter [facility] 03-24-2024 Hospital Discharg e instructions Ambulatory OrdersReferral to General Surgery Time Frame: 03/24/24, Location: [facility] Work Phone: 03-23-2024 Note HNO ID: [id number] Author: JANNA GILMAN MD Service: ? Author Type: Physician Type: Progress Notes Filed: 03/23/2024 16:32 Note Text: This 58-year-old woman is seen in neurological consultation at the request of Dr. Abiodun Castano for evaluation of fasciculations and disturbance of skin sensation in the legs. For 78 years the patient has had burning in the bilateral soles of the feet, primarily at night. Symptoms have not much progressed over time. They do not prevent activities of daily living. She has had tingling sensation below the knees on an off-and-on basis. For the last year or so the patient has had bilateral calf fasciculations and she describes charley horse cramps especially in bed, especially in the calves, for the last 1-2 years. At some point a vitamin B12 level was low although the intrinsic factor methylmalonic acid levels were okay. High-dose vitamin B12 has not improved the symptoms. A B6 level was around 200 and a B1 level was on the upper limit of normal, and she has supplemental vitamins. Workup has included MRI scan of the cervical and thoracic spine without findings relevant to the symptoms. 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 An A1c level was 5.6. The past medical history is pertinent for lumbar canal stenosis without specific symptoms and bilateral tailor bunionectomies. There is no history of tobacco use and alcohol use is uncommon. The family history is pertinent for 3 healthy biological children and 1 adopted child. The father at age 48 with multiple myeloma and her mother at age 78 with primary progressive aphasia. There is a thyroid condition for which the patient is followed closely. Review of systems, including constitutional symptoms, eyes, ears, nose, throat, cardiovascular, respiratory, GI, , musculoskeletal, skin, psychiatric, endocrine, hematological/lymphatic, and allergic/immunologic is normal, unless otherwise stated above. Itemized examination below is normal unless further described: Blood pressure, pulse, respiration General appearance Gait Muscle strength of arms and legs Muscle tone, atrophy, fasciculations Mental state: orientation, recent/remote memory, attention/concentration Language function Fund of knowledge Cranial nerves 3 through 12 Sensation Muscle stretch reflexes of all extremities, plantar responses Coordination of the extremities, fine motor control Pertinent findings on neurologic examination: Gait: Normal stride and stance, heel-toe walk, Romberg, tandem, hop. Motor: Full power all extremities, normal bulk, no fasciculations identified in muscles of the arms and legs. Occasional momentary posterior thigh cramps elicited during motor exam. Sensation: 25% decrease in pin sensation below the ankles bilaterally. Vibration was felt at the toes with mild but not minimal stimulus. Joint position sense normal. Muscle stretch reflexes: 1+ in the upper extremities without spread, 1+/2 at the knees without crossed adduction, 1+/2 at the ankles without clonus. Tone normal. Coordination: Intact all extremities. Impression: Essentially normal neurologic examination except for subjective reduction of pin sensation below the ankles. 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 We discussed workup, and the patient defers QSART and skin biopsy at the present time, and instead we will pursue further lab testing for treatable causes of neuropathy. MRI report of right temporal cyst also suggested follow-up. Plan: Labs for treatable causes of sensory neuropathy. Patient will reach me in early June for 6-month follow-up MRI of the brain with and without contrast. I spent a total of 60 minutes on the date of the service which included preparing to see the patient, [id number] patient care, completing clinical documentation, obtaining and/or reviewing separately obtained history, performing a medically appropriate examination, counseling and educating the patient/family/caregiver, and ordering medications, tests, or procedures. Janna Gilman MD cc: Abiodun Castano [id number] [facility] [id number] Edna Sultana [id number] [address] [facility] [address] [facility] 03-23-2024 History of Presen t illness Narrative This 58-year-old woman is seen in neurological consultation at the request of Dr. Abiodun Castano for evaluation of fasciculations and disturbance of skin sensation in the legs. For 78 years the patient has had burning in the bilateral soles of the feet, primarily at night. Symptoms have not much progressed over time. They do not prevent activities of daily living. She has had tingling sensation below the knees on an off-and-on basis. For the last year or so the patient has had bilateral calf fasciculations and she describes charley horse cramps especially in bed, especially in the calves, for the last 1-2 years. At some point a vitamin B12 level was low although the intrinsic factor methylmalonic acid levels were okay. High-dose vitamin B12 has not improved the symptoms. A B6 level was around 200 and a B1 level was on the upper limit of normal, and she has supplemental vitamins. Workup has included MRI scan of the cervical and thoracic spine without findings relevant to the symptoms. 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 An A1c level was 5.6. The past medical history is pertinent for lumbar canal stenosis without specific symptoms and bilateral tailor bunionectomies. There is no history of tobacco use and alcohol use is uncommon. The family history is pertinent for 3 healthy biological children and 1 adopted child. The father at age 48 with multiple myeloma and her mother at age 78 with primary progressive aphasia. There is a thyroid condition for which the patient is followed closely. Review of systems, including constitutional symptoms, eyes, ears, nose, throat, cardiovascular, respiratory, GI, , musculoskeletal, skin, psychiatric, endocrine, hematological/lymphatic, and allergic/immunologic is normal, unless otherwise stated above. Itemized examination below is normal unless further described: Blood pressure, pulse, respiration General appearance Gait Muscle strength of arms and legs Muscle tone, atrophy, fasciculations Mental state: orientation, recent/remote memory, attention/concentration Language function Fund of knowledge Cranial nerves 3 through 12 Sensation Muscle stretch reflexes of all extremities, plantar responses Coordination of the extremities, fine motor control Pertinent findings on neurologic examination: Gait: Normal stride and stance, heel-toe walk, Romberg, tandem, hop. Motor: Full power all extremities, normal bulk, no fasciculations identified in muscles of the arms and legs. Occasional momentary posterior thigh cramps elicited during motor exam. Sensation: 25% decrease in pin sensation below the ankles bilaterally. Vibration was felt at the toes with mild but not minimal stimulus. Joint position sense normal. Muscle stretch reflexes: 1+ in the upper extremities without spread, 1+/2 at the knees without crossed adduction, 1+/2 at the ankles without clonus. Tone normal. Coordination: Intact all extremities. Impression: Essentially normal neurologic examination except for subjective reduction of pin sensation below the ankles. 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 We discussed workup, and the patient defers QSART and skin biopsy at the present time, and instead we will pursue further lab testing for treatable causes of neuropathy. MRI report of right temporal cyst also suggested follow-up. Plan: Labs for treatable causes of sensory neuropathy. Patient will reach me in early June for 6-month follow-up MRI of the brain with and without contrast. I spent a total of 60 minutes on the date of the service which included preparing to see the patient, [id number] patient care, completing clinical documentation, obtaining and/or reviewing separately obtained history, performing a medically appropriate examination, counseling and educating the patient/family/caregiver, and ordering medications, tests, or procedures. Janna Gilman MD cc: Abiodun Csatano [id number] [facility] [id number] Edna Tuckerright [id number] [address] [facility] [id number] documented in this encounter [facility] 12-12-2023 Note HNO ID: [id number] Author: ABIODUN CASTANO, DO Service: ? Author Type: Physician Type: Progress Notes Filed: 12/12/2023 12:40 Note Text: [facility] 12, 2023 CC: Lumbar spine pain left buttock pain and bilateral lower limb vermiculation SUBJECTIVE: Patient returns today to discuss the results of her MRI imaging. At her prior visit was complaining of similar symptoms. Has continued to deal with twitching and sensation of bugs crawling on her legs since this time. On exam did have presence of fasciculations in the bilateral calf muscles. Since this time she reports she has begun to notice extending sensation of twitching and crawling now also to the distal medial thighs she denies any lower limb weakness. In the past has undergone 2 EMGs without any evidence of neuropathy or radiculopathy at outside facilities. Patient also has been found to be suffering from true B12 deficiency and has begun on supplementation. Patient again brings up the fact that she had previously been worked up for Lyme disease and had been placed on antibiotics many years ago Since last visit: She continues to deny bowel/bladder incontinence, denies fever, denies night pain, denies unintentional weight loss, denies clumsiness of hands or dropping things, denies clumsiness of feet, tripping or falling. Denies any constitutional or myelopathic symptomatology. No interval change in PMHX, PSHX, Allergies, FamHx or ROS. PMH: PAST MEDICAL HISTORY Diagnosis Date Vitamin B12 deficiency PSH: PAST SURGICAL HISTORY Procedure Laterality Date BUNIONECTOMY, LAPIDUS-TYPE SECTION HX F PER LYSIS ADHES TONSILLECTOMY AND ADENOIDECTOMY HX Social history: Social History Tobacco Use Smoking status: Never Smokeless tobacco: Never Substance Use Topics Alcohol use: Yes Alcohol/week: 1.0 standard drink of alcohol Types: 1 Glasses of Wine (5oz) per week Drug use: Never Fam history: No family history on file. Reviewed and updated with patient. ALLERGIES: Adhesive Tape-Silicones DATA REVIEW: Lumbar MRI: IMPRESSION: No evidence of demyelinating disease within the thoracic spine. No substantial canal stenosis or cord signal abnormality. For the purposes of this report, L4-5 is considered the level of the iliac crest and there are 5 lumbar-type vertebrae. Anatomic variant: Assume 11 thoracic, rib bearing vertebrae to accommodate counting discrepancies from the craniocervical and lumbosacral junctions. Thoracic MRI: IMPRESSION: No evidence of demyelinating disease within the cervical spine. Mild multilevel degenerative changes with no substantial canal or foraminal stenosis. No spinal cord signal abnormality identified. Incidental 1.7 cm T2 hyperintense lesion is present in the left thyroid lobe. Recommend thyroid ultrasound for further evaluation. Anatomic Variant: None. Assume 7 cervical vertebrae with counting from the craniocervical junction. Brain MRI: IMPRESSION: No acute intracranial abnormality. 12 mm ovoid T2 FLAIR hyperintense lesion is present in the anterior right temporal lobe subcortical white matter with no postcontrast enhancement or mass effect. While this is favored to reflect sequela of a nonspecific remote insult, continued attention on follow-up imaging is recommended to assess stability and exclude a low-grade glioma. Subtle T2 FLAIR hyperintense signal abnormality is present in the bilateral globi pallidi. While this may reflect numerous tiny perivascular spaces, sequelae of prior toxic/metabolic insult is also within the differential. OBJECTIVE: Vital Signs: Resp 12 Ht 180.3 cm (5' 11 ) Wt 71.7 kg (158 lb) BMI 22.04 kg/m? ASSESSMENT: General:Patient in no apparent distress, afebrile, well appearing Lungs:No labored breathing, symetric chest excursion, no tachypnia Heart:No lower limb edema, pulses palpable and symetric dorsalis pedis and radial, no cyanosis Abdominal:Non distended abdomen Neuro:Strength intact bilateral lower limbs Sensation intact bilateral lower limbs Reflexes 3+ bilateral patella and left medial hamstring. 1+ right medial hamstring and absent right Achilles normal left Achilles Strength intact in bilateral upper limbs Sensation intact in bilateral upper limbs Reflexes intact in bilateral upper limbs Muscular:Tenderness to palpation of right Lumbar paraspinal muscles Skin:Head, neck, trunk, and extremities dry, intact and without lesions. DX: R25.3 Fasciculation (primary encounter diagnosis) R29.2 Hyperreflexia M51.37 Degeneration of lumbar or lumbosacral intervertebral disc PLAN: 1) Patient continues to deal with pain in the lumbar spine into the left buttock without severe pain in the lower limbs. Does describe paresthesias and has visible fasciculations on exam. In light of the lack of any significant pain at the distal lower limb advised patient that at this mabel (more content not included)... [facility] 12-12-2023 History of Presen t illness Narrative Follow-[facility] Visit [facility] December 12, 2023 CC: Lumbar spine pain left buttock pain and bilateral lower limb vermiculation SUBJECTIVE: Patient returns today to discuss the results of her MRI imaging. At her prior visit was complaining of similar symptoms. Has continued to deal with twitching and sensation of bugs crawling on her legs since this time. On exam did have presence of fasciculations in the bilateral calf muscles. Since this time she reports she has begun to notice extending sensation of twitching and crawling now also to the distal medial thighs she denies any lower limb weakness. In the past has undergone 2 EMGs without any evidence of neuropathy or radiculopathy at outside facilities. Patient also has been found to be suffering from true B12 deficiency and has begun on supplementation. Patient again brings up the fact that she had previously been worked up for Lyme disease and had been placed on antibiotics many years ago Since last visit: She continues to deny bowel/bladder incontinence, denies fever, denies night pain, denies unintentional weight loss, denies clumsiness of hands or dropping things, denies clumsiness of feet, tripping or falling. Denies any constitutional or myelopathic symptomatology. No interval change in PMHX, PSHX, Allergies, FamHx or ROS. PMH: PAST MEDICAL HISTORY Diagnosis Date Vitamin B12 deficiency PSH: PAST SURGICAL HISTORY Procedure Laterality Date BUNIONECTOMY, LAPIDUS-TYPE SECTION HX F PER LYSIS ADHES TONSILLECTOMY AND ADENOIDECTOMY HX Social history: Social History Tobacco Use Smoking status: Never Smokeless tobacco: Never Substance Use Topics Alcohol use: Yes Alcohol/week: 1.0 standard drink of alcohol Types: 1 Glasses of Wine (5oz) per week Drug use: Never Fam history: No family history on file. Reviewed and updated with patient. ALLERGIES: Adhesive Tape-Silicones DATA REVIEW: Lumbar MRI: IMPRESSION: No evidence of demyelinating disease within the thoracic spine. No substantial canal stenosis or cord signal abnormality. For the purposes of this report, L4-5 is considered the level of the iliac crest and there are 5 lumbar-type vertebrae. Anatomic variant: Assume 11 thoracic, rib bearing vertebrae to accommodate counting discrepancies from the craniocervical and lumbosacral junctions. Thoracic MRI: IMPRESSION: No evidence of demyelinating disease within the cervical spine. Mild multilevel degenerative changes with no substantial canal or foraminal stenosis. No spinal cord signal abnormality identified. Incidental 1.7 cm T2 hyperintense lesion is present in the left thyroid lobe. Recommend thyroid ultrasound for further evaluation. Anatomic Variant: None. Assume 7 cervical vertebrae with counting from the craniocervical junction. Brain MRI: IMPRESSION: No acute intracranial abnormality. 12 mm ovoid T2 FLAIR hyperintense lesion is present in the anterior right temporal lobe subcortical white matter with no postcontrast enhancement or mass effect. While this is favored to reflect sequela of a nonspecific remote insult, continued attention on follow-up imaging is recommended to assess stability and exclude a low-grade glioma. Subtle T2 FLAIR hyperintense signal abnormality is present in the bilateral globi pallidi. While this may reflect numerous tiny perivascular spaces, sequelae of prior toxic/metabolic insult is also within the differential. OBJECTIVE: Vital Signs: Resp 12 Ht 180.3 cm (5' 11 ) Wt 71.7 kg (158 lb) BMI 22.04 kg/m ASSESSMENT: General:Patient in no apparent distress, afebrile, well appearing Lungs:No labored breathing, symetric chest excursion, no tachypnia Heart:No lower limb edema, pulses palpable and symetric dorsalis pedis and radial, no cyanosis Abdominal:Non distended abdomen Neuro:Strength intact bilateral lower limbs Sensation intact bilateral lower limbs Reflexes 3+ bilateral patella and left medial hamstring. 1+ right medial hamstring and absent right Achilles normal left Achilles Strength intact in bilateral upper limbs Sensation intact in bilateral upper limbs Reflexes intact in bilateral upper limbs Muscular:Tenderness to palpation of right Lumbar paraspinal muscles Skin:Head, neck, trunk, and extremities dry, intact and without lesions. DX: R25.3 Fasciculation (primary encounter diagnosis) R29.2 Hyperreflexia M51.37 Degeneration of lumbar or lumbosacral intervertebral disc PLAN: 1) Patient continues to deal with pain in the lumbar spine into the left buttock without severe pain in the lower limbs. Does describe paresthesias and has visible fasciculations on exam. In light of the lack of any significant pain at the distal lower limb advised patient that at this time pursuing interventional procedures such as epidural injection did not appear to be clearly indicated. Advised patient if her buttock pain should significantly worsen could consider pursuing this option. 2) Patient's exam with hyperreflexia at the patella left medial hamstring and normal left Achilles with diminished right medial hamstring and absent right Achilles would seem concordant with chronic underlying L5-S1 radiculopathy. If symptoms should significantly worsen again could consider epidural injection. 3) We reviewed patient's brain cervical and thoracic MRIs. On cervical MRI and thoracic MRI no evidence of severe central canal stenosis or cord compression. No evidence of myelomalacia in the cord at any level. Evidence of some mild narrowing at C5-C6 foramen bilaterally secondary to broad-based disc bulge. This finding would go along with patient's normal to hyperreflexic bilateral biceps with 3+ triceps reflex in the upper limbs. 4) Patient continues to deal with strange paresthesias in the lower limbs as well as fasciculations on exam although prior EMGs performed at outside facilities did not seem to suggest even presence of fasciculations I advised patient that in light of our ability to see them that I would recommend evaluation with one of our neuromuscular specialist. Advised patient in the future if her symptoms should persist could discuss additional treatment options, however, at this time we will schedule her an evaluation with neuromuscular department Abiodun Castano DO, MPH Staff Physician [facility] This document has been created with the use of voice recognition technology. It may contain inaccuracies: misspellings, inaccurate syntax or word sense that escaped review. documented in this encounter [facility] 12-09-2023 History of Presen t illness Narrative Radiology Service Progress Note DATE OF SERVICE: December 09, 2023 TIME: 10:26 AM PATIENT IDENTITY VERIFICATION COMPLETED USING TWO (2) STANDARD IDENTIFIERS: Name and Date of confirmed by patient verbally. FALL SCREENING: Has the patient had 2 falls in the last year or 1 fall with injury or currently using an Ambulatory Assistive Device (Walker, Cane, Wheelchair, Crutches, etc.)? No PATIENT GENDER DATA: Female. status: : No status: NO. PATIENT RELEVANT IMPLANT DATA REVIEWED: Yes PATIENT PRESENTS WITH AN IMPLANTABLE OR ATTACHED WATERSHED COORDINATOR: No ALLERGIES: Reviewed and unchanged CONTRAST ALLERGY: NO. EXAM: MRI - CONTRAST TYPE: GROUP II PERIPHERAL IV DATA: Ambulatory: A peripheral IV was started in the Right antecubital site with a Angio cath: 24 gauge. RADIOLOGY DEPARTMENT: MR; Exam(s) Completed: Head: Multiple Sclerosis Spine: Cervical spine and Thoracic spine SIGNATURE: RT Galdino(Loli) PATIENT NAME: Edna Sultana DATE: December 09, 2023 TIME: 10:26 AM documented in this encounter [facility] 12-09-2023 Note HNO ID: [id number] Author: SUZANNA GARY RT(R) Service: ? Author Type: Technologist Type: Progress Notes Filed: 12/09/2023 10:26 Note Text: Radiology Service Progress Note DATE OF SERVICE: December 09, 2023 TIME: 10:26 AM PATIENT IDENTITY VERIFICATION COMPLETED USING TWO (2) STANDARD IDENTIFIERS: Name and Date of confirmed by patient verbally. FALL SCREENING: Has the patient had 2 falls in the last year or 1 fall with injury or currently using an Ambulatory Assistive Device (Walker, Cane, Wheelchair, Crutches, etc.)? No PATIENT GENDER DATA: Female. status: : No status: NO. PATIENT RELEVANT IMPLANT DATA REVIEWED: Yes PATIENT PRESENTS WITH AN IMPLANTABLE OR ATTACHED WATERSHED COORDINATOR: No ALLERGIES: Reviewed and unchanged CONTRAST ALLERGY: NO. EXAM: MRI - CONTRAST TYPE: GROUP II PERIPHERAL IV DATA: Ambulatory: A peripheral IV was started in the Right antecubital site with a Angio cath: 24 gauge. RADIOLOGY DEPARTMENT: MR; Exam(s) Completed: Head: Multiple Sclerosis Spine: Cervical spine and Thoracic spine SIGNATURE: LISHA Ahmadi) PATIENT NAME: Edna Sultana DATE: December 09, 2023 TIME: 10:26 AM [facility] 11-10-2023 Evaluation note Authored November 10, 2023 11:44a m The above note written by __ _Prabhjot Tafoya____ acting as human recorder, note dictated by Dr. Layne .I performed the above HPI, ROS, and Examination. I formulated and dictated the treatment plan and was present for entire encounter. Yannick Velázquez D.O. [facility] Work Phone: 1(907) 251-898505-02-2024 Telephone encounter Note* Telephone Encounter - Kimberly House MA - 11/06/2023 9:08 AM EDT Scheduled 3 mri's and follow up appointment as requested by Dr. Castano. [facility]05-02-2024 Miscellaneous Notes* Telephone Encounter - Kimberly House MA - 11/06/2023 9:08 AM EDT Scheduled 3 mri's and follow up appointment as requested by Dr. Castano. * Telephone Encounter - Kimberly House MA - 11/06/2023 7:26 AM EDT end documented [facility] Telephone encounter Note * Telephone Encounter - Kimberly House MA - 11/06/2023 7:26 AM EDT end [facility]05-01-2024 Telephone encounter Note* Telephone Encounter - Abiodun Castano DO - 11/05/2023 6:18 PM EDT Received communication from radiology department. In light of our concern regarding potential demyelinating process such as MS or other types of neurologic processes they are recommending that the MRIs be performed with and without contrast to show any subtle changes that might not be picked up on r egular MRI imaging. For this reason we will need to place new orders for her MRI and the MRI will need to be performed on a different date since they do not perform MRIs with contrast on Sundays. Please advise patient that I apologize for this change, however, since she has been dealing with these bizarre symptoms for quite some time I do believe that this would be our best recommendation. I willsend the patient a [employer] message also so she is aware. Devin please cancel her other MRIs and I have placed new orders. Abiodun Castano DO [facility] Work Phone: [phone] Miscellaneous Notes* Telephone Encounter - Abiodun Castano DO - 11/05/2023 6:18 PM EDT Received communication from radiology department. In light of our concern regarding potential demyelinating process such as MS or other types of neurologic processes they are recommending that the MRIs be performed with and without contrast to show any subtle changes that might not be picked up on r egular MRI imaging. For this reason we will need to place new orders for her MRI and the MRI will need to be performed on a different date since they do not perform MRIs with contrast on Sundays. Please advise patient that I apologize for this change, however, since she has been dealing with these bizarre symptoms for quite some time I do believe that this would be our best recommendation. I willsend the patient a [employer] message also so she is aware. Devin please cancel her other MRIs and I have placed new orders. Abiodun Castano DO documented in [facility] Telephone encounter Note * Telephone Encounter - Kimberly House MA - 10/28/2023 9:19 AM EDT Left message for patient to return call to schedule mri's and a follow up appointment. [facility]04-23-2024 Miscellaneous Notes* Telephone Encounter - Kimberly House MA - 10/28/2023 9:19 AM EDT Left message for patient to return call to schedule mri's and a follow up appointment. documented in this encounter[facility] Miscellaneous Notes* Telephone Encounter - Frannie Hernandez RN - 10/23/2023 11:20 AM EDT KAYLEEN 10/21/23- unsigned note Additional info patient wanted to share documented in this encounterUniversity [facility] Instructions* Patient Instructions* Abiodun Castano DO - 10/21/2023 8:41 AM EDT Images from the original note were not included. Chronic Lumbar Radiculopathy (Leg Pain) Overview: Symptoms of a pinched nerve in the leg (lumbar radiculopathy) include numbness, tingling and evenweakness. Leg pain is usually worse than back pain. The cause of nerve impingement may include a protruding (herniated) disc, bony or joint overgrowth or both. Lumbar spinal stenosis is a condition which results from narrowing of the spinal canal which contains the lower spinal nerves. This condition typically produces leg symptoms when standing or walking which are relieved by sitting. The prognosis for a full recovery with conservative (non-surgical) treatment is good in most persons. X-rays or scans (MRI or CT) are not required in most patients before starting treatment but may be performed if symptoms aren't improving after about 6 weeks despite medical treatment. Treatment: Pain-relieving anti-inflammatory medications such as ibuprofen or naproxen are recommended. Acetaminophen (Tylenol) is recommended if you cannot take anti- inflammatory medications. Medications effective for nerve pain such as gabapentin (Neurontin), pregabalin (Lyrica) or some antidepressants may be helpful for leg pain. A short course of oral steroids (prednisone or Medrol) may help alleviate severe, acute inflammation. For persistent pain despite oral medications and physical therapy, an epidural corticosteroid injection ( block ) may be recommended if an MRI or CT scan confirms nerve impingement ( pinched nerve ). Remaining as active as possible and resuming normal activities are recommended to speed recovery. Physical therapy is recommended for development of an active exercise program. If weakness is developing in the affected leg or if pain is severe despite medical treatment, a surgical consultation may be recommended if an MRI or CT scan confirms nerve impingement. Follow Up See your health care provider if: The pain doesn't improve or worsens You notice increasing weakness in the leg(s) You experience problems with balance or walking You notice difficulty passing urine or controlling your bowels These are warning signs or red flags that require prompt, urgent medical attention. SIGNATURE: Abiodun Castano DO PATIENT NAME: Edna Sultana DATE: October 21, 2023 TIME: 8:41 AM documented in this encounterUniversity [facility]24 NoteHNO ID: [id number] Author: ABIODUN CASTANO DO Service: ? Author Type: Physician Type: Progress Notes Filed: 10/27/2023 18:45 Note Text: Spine Care Path Low Back Pain - Chronic (> 12 weeks) Initial Exam SUBJECTIVE HISTORY OF PRESENT ILLNESS: Edna Sultana is a 58 year old female who presents with a chief complaint of low back pain and is self-referred. Patient presents today complaining of pain in the lumbar spine as well as paresthesias into the bilateral lower limbs. Describes calf twitching like bugs crawling on her legs. Reports has had several episodes of low back over the years, however, calf twitching is a new symptom. Reports last summer did have a major episode of back pain for which it required multiple Medrol Dosepaks. Reports eventually back pain symptoms did significantly improve before the start of the school year. 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 Has seen Dr. Victorina Martinez and has undergone EMG in June 2023. Also describes paresthesias largely in the lateral aspect of bilateral feet and into the plantar aspect in the balls of her feet. Reports on occasion rare paresthesias in the upper limbs sometimes in the ulnar distribution and at times in the radial distribution. Has had extensive blood workup as well reports low ferritin magnesium and potassium in the past supplementation of certain electrolytes has not seem to make a difference in her symptoms. Denies any loss control of bowel or bladder. Balance seems okay. Has undergone extensive physical therapy. Patient's lumbar spine pain significantly bothersome in the evenings with difficulty sleeping due to her back pain. Has dealt with bladder dysfunction and recurrent UTIs. Has undergone urethral dilation with urology in the past. At this time denies any classic radicular symptoms into the lower limbs but will deal with intermittent areas of numbness and paresthesias in the bilateral lower limbs. She describes twitching into the bilateral calf muscles as well as intermittent cramping in the feet. Other Issues Addressed at the Visit Today: None. Precipitating Event: None Gardening started last episode PAIN EVALUATION 10/20/2023 1332 10/21/2023 0807 Pain Level: 3 3 Pain Location: Back-Lower Back-Lower Description: Aching -- Duration Amount of Time: 12 6 Duration Units: Months Months Frequency: Intermittent Continuous Intervention/Comfort measure: Reposition;Exercise;Positioning -- Pain Radiation: Despite low back pain patient denies any significant pain radiating down the lower limbs simply paresthesias` Aggravating Factors: Flexion, Extension, Lifting Alleviating Factors: Medications, Exercising/activity, Stretching Pain Ratio: 100 % back pain, 0 % leg pain Prior Therapy: In the past has undergone physical therapy. Has previously undergone course of physical therapy without any significant improvement in her symptoms. Litigation: No Workers' Compensation: No YELLOW AND BLUE FLAGS No-Neg Attitude; Back Pain is Disabling No-Avoiding Activity (for Fear of Pain) No-Depression or Anxiety Disorders No-Social Problems No-Substance Use Disorder No-Job Dissatisfaction No-Financial Disincentives Patient Entered Questionnaires 10/20/2023 Spine Questions Pain Location: Lower back Pain Duration: More than 5 years Pain over last 6 months: Every day or nearly every day in the past 6 months Symptoms from neck/cervical spine: No Employment Status: Working now Involved in law suit/legal claim: No 10/20/2023 Spine Red Flags Any type of cancer: No Unexplained fever: No Bowel or bladder disfunction: No Unintentional weight loss: No Osteoporosis: No PROMIS Score Percentiles 10/20/2023 Physical Health Physical Function Percentile 54 Sleep Percentile 27* Fatigue Percentile 58 Pain Interference Percentile 38 10/20/2023 PROMIS SOCIAL ROLE SCORE Social Role Satisfaction Percentile 73 09/06/2020 10/20/2023 PROMIS Global Health Scale Physical Health Percentile 53 66 Mental Health Percentile 43 53 Percentiles provide an indication of how the patient's score ranks in relation to the general population. Higher percentile rankings indicate better function/quality of life. 50th percentile is the average of the general population and indicates half of respondents had a worse score. Depression Screenin10/20/2023 PHQ-9 Score 1 10/20/2023 PHQ-9 Self-harm Question Question 9 Not at all PHQ-9 Self-Harm (Item 9) response options: 0 Not at all 1 Several days 2 More than half the days 3 Nearly every day PHQ-9 Levels: 0-4 No - mild depression 5-9 Mild depression 10-14 Moderate depression 15-19 Moderately severe depression 20-27 Severe depression ACTIVE PROBLEM LIST Dysuria Cystocele With Prolapse Nocturia PAST MEDICAL HISTORY Diagnosis Date Vitamin B12 deficiency PAST (more content not included)...[facility]04-16-[facility]24 History of Present illness Narrative* Abiodun Castano, DO - 10/21/2023 8:39 AM EDT Images from the original note were not included. Sp[facility] Low Back Pain - Chronic (> 12 weeks) Initial Exam SUBJECTIVE HISTORY OF PRESENT ILLNESS: Edna Sultana is a 58 year old female who presents with a chief complaint of low back pain and is self-referred. Patient presents today complaining of pain in the lumbar spine as well as paresthesias into the bilateral lower limbs. Describes calf twitching like bugs crawling on her legs. Reports has had severalepisodes of low back over the years, however, calf twitching is a new symptom. Reports last summer did have a major episode of back pain for which it required multiple Medrol Dosepaks. Reports eventually back pain symptoms did significantly improve before the start of the school year. 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 Has seen Dr. Victorina Martinez and has undergone EMG in June 2023. Also describes paresthesias largely in the lateral aspect of bilateral feet and into the plantar aspect in the balls of her feet. Reports on occasion rare paresthesias in the upper limbs sometimes in the ulnar distribution and at times inthe radial distribution. Has had extensive blood workup as well reports low ferritin magnesium and potassium in the past supplementation of certain electrolytes has not seem to make a difference in her symptoms. Denies any loss control of bowel or bladder. Balance seems okay. Has undergone extensive physical therapy. Patient's lumbar spine pain significantly bothersome in the evenings with difficulty sleeping due to her back pain. Has dealt with bladder dysfunction and recurrent UTIs. Has underg one urethral dilation with urology in the past. At this time denies any classic radicular symptoms into the lower limbs but will deal with intermittent areas of numbness and paresthesias in the bilateral lower limbs. She describes twitching into the bilateral calf muscles as well as intermittent cramping in the feet. Other Issues Addressed at the Visit Today: None. Precipitating Event: None Gardening started last episode PAIN EVALUATION 10/20/2023 1332 10/21/2023 0807 Pain Level: 3 3 Pain Location: Back-Lower Back-Lower Description: Aching -- Duration Amount of Time: 12 6 Duration Units: Months Months Frequency: Intermittent Continuous Intervention/Comfort measure: Reposition;Exercise;Positioning -- Pain Radiation: Despite low back pain patient denies any significant pain radiating down the lower limbs simply paresthesias` Aggravating Factors: Flexion, Extension, Lifting Alleviating Factors: Medications, Exercising/activity, Stretching Pain Ratio: 100 % back pain, 0 % leg pain Prior Therapy: In the past has undergone physical therapy. Has previously undergone course of physical therapy without any significant improvement in her symptoms. Litigation: No Workers' Compensation: No YELLOW & BLUE FLAGS No-Neg Attitude; Back Pain is Disabling No-Avoiding Activity (for Fear of Pain) No-Depression or Anxiety Disorders No-Social Problems No-Substance Use Disorder No-Job Dissatisfaction No-Financial Disincentives Patient Entered Questionnaires 10/20/2023 Spine Questions Pain Location: Lower back Pain Duration: More than 5 years Pain over last 6 months: Every day or nearly every day in the past 6 months Symptoms from neck/cervical spine: No Employment Status: Working now Involved in law suit/legal claim: No 10/20/2023 Spine Red Flags Any type of cancer: No Unexplained fever: No Bowel or bladder disfunction: No Unintentional weight loss: No Osteoporosis: No PROMIS Score Percentiles 10/20/2023 Physical Health Physical Function Percentile 54 Sleep Percentile 27* Fatigue Percentile 58 Pain Interference Percentile 38 10/20/2023 PROMIS SOCIAL ROLE SCORE Social Role Satisfaction Percentile 73 09/06/2020 10/20/2023 PROMIS Global Health Scale Physical Health Percentile 53 66 Mental Health Percentile 43 53 Percentiles provide an indication of how the patient's score ranks in relation to the general population. Higher percentile rankings indicate better function/quality of life. 50th percentile is the average of the general population and indicates half of respondents had a worse score. Depression Screenin10/20/2023 PHQ-9 Score 1 10/20/2023 PHQ-9 Self-harm Question Question 9 Not at all PHQ-9 Self-Harm (Item 9) response options: 0 Not at all 1 Several days 2 More than half the days 3 Nearly every day PHQ-9 Levels: 0-4 No - mild depression 5-9 Mild depression 10-14 Moderate depression 15-19 Moderately severe depression 20-27 Severe depression ACTIVE PROBLEM LIST Dysuria Cystocele With Prolapse Nocturia PAST MEDICAL HISTORY Diagnosis Date Vitamin B12 deficiency PAST SURGICAL HISTORY Procedure Laterality Date BUNIONECTOMY, LAPIDUS-TYPE SECTION HX F PER LYSIS ADHES TONSILLECTOMY AND ADENOIDECTOMY HX Social History Tobacco Use Smoking status: Never Smokeless tobacco: Never Substance Use Topics Alcohol use: Yes Alcohol/week: 1.0 standard drink of alcohol Types: 1 Glasses of Wine (5oz) per week Drug use: Never No family history on file. ALLERGIES Allergen Reactions Adhesive Tape-Silic* Rash, Hives CURRENT MEDICATIONS: MAGNESIUM ORAL Take by mouth once daily. ferrous fumarate/ascorbic acid (WILLIAM-SEQUELS, IRON-VIT C, ORAL) Take by mouth once daily. sertraline (ZOLOFT) 25 mg tablet Take 25 mg by mouth. cyanocobalamin 1,000 mcg/mL REVIEW OF SYSTEMS: Review of Systems Constitutional: Negative Eyes: Negative Hent: Negative Cardiovascular: Negative Respiratory: Negative GI: Negative : Negative Endocrine: Negative Musculoskeletal Positive for Back Pain and Muscle Pain Integumentary: Negative Heme/Lymph: Negative Allergy/Immunologic: Negative Neurologic Positive for Numbness/Tingling Psychiatric: Negative Patient's Review of Systems has been reviewed with the patient and updated as appropriate. OBJECTIVE: PHYSICAL EXAM Resp 12 Ht 180.3 cm (5' 11 ) Wt 71.7 kg (158 lb) BMI 22.04 kg/m GENERAL APPEARANCE: Well appearing, well-hydrated, well nourished and alert SKIN: Head, neck, trunk, and extremities dry, intact and without lesions HEART: Peripheral pulses: normal, 2+ bilaterally and symmetric, Edema: No In light of patient's general tall stature, scoliosis and overall body morphology I did auscultate patient's heart. On heart exam there is evidence of a murmur as well as left carotid bruit. LUNGS: even and non-labored breathing, normal chest excursion LYMPHATICS: No palpable lymphadenopathy in the neck, axilla, or groin NEURO/PSYCH: oriented to time, place, and person, speech normal, mental status intact GAIT: normal, toe walking normal, heel walking normal, able to tandem gait POSTURE: Posture and spinal curves are normal, Thoracolumbar scoliosis with mild rib hump. PALPATION: no palpable masses, tenderness, or spasm, no palpable subluxation or step-off, no point tenderness over the spine MUSCULOSKELETAL: Patient with tall slender anatomy. No significant hypermobility of the joints Extended Low Back & Leg Exam Lumbar Range of Motion Flexion 10-12 inches from floor Extension Restricted RIGHT LEFT Lateral Bending Limited Limited Oblique Extension Decreased Decreased Leg Raise Straight Leg Raise Negative Negative Contralateral Straight Leg Raise Negative Negative DTRs Knee Hyper-reflexive Hyper-reflexive Ankle Hyper-reflexive Hyper-reflexive Medial Hamstring Hyper-reflexive Hyper-reflexive Babinski normal abnormal; Strength of Lower Extremities Extensor Hallux Longus 5/5 5/5 Ankle Dorsiflexion 5/5 5/5 Ankle Plantarflexion 5/5 5/5 Knee Extension 5/5 5/5 Evaluation of the bilateral calf muscles does reveal intermittent fasciculation in the bilateral calf muscles. Also with intermittent twitching in other muscles of the bilateral lower limbs as well as some mild twitching in the bilateral upper limbs Ryan's Exam: Deferred Hip Range of Motion RIGHT LEFT Flexion Normal Normal Extension Normal Normal Abduction Normal Normal Adduction Normal Normal Internal Rotation Normal Normal External Rotation Normal Normal Hip Exam RIGHT LEFT STEPHANIE Exam Abnormal Abnormal Trochanteric Bursa Tenderness Normal Normal Gaenslen's Maneuver Abnormal Abnormal Tobi's Test (IT-Band Pathology) Normal Normal Sacroiliac joint: Positive Chandra's test bilaterally, positive Stephanie's test bilaterally @[id number]@ Cervical Range of Motion Flexion Normal Extension Normal RIGHT LEFT Rotation Full ROM without pain Full ROM without pain Lateral Bend Full ROM without pain Full ROM without pain Upper Body Reflex Exam RIGHT LEFT Reflex Status Reflex Status Biceps 2+ Normal 2+ Normal Triceps 3+ Normal 3+ Normal Brachioradialis 2+ Normal 2+ Normal Inverted Radial 2+ Normal 2+ Normal Candelaria's Sign Present present Upper Extremity Strength RIGHT LEFT Strength (MMT) Strength (MMT) Shoulder Abduction 5/5 5/5 Biceps 5/5 5/5 Triceps 5/5 5/5 Resisted Suppination 5/5 5/5 Wrist Extension 5/5 5/5 Interossei 5/5 5/5 Shoulder Range of Motion RIGHT LEFT Flexion Normal Normal Extension Normal Normal Abduction Normal Normal Adduction Normal Normal Internal Rotation Normal Normal External Rotation Normal Normal Shoulder Tests N/A NEUROSENSORY: On sensory exam patient with minor sensory deficits in the lower limbs somewhat in stocking distribution and slightly more prominent in the left L4 and L5 distribution. Neuro Tests: None Data Review: Lumbar MRI: At L1-2, there is slight disco-osteophytic bulging [...] neural foraminal narrowing, greater on the left. On my personal review there is evidence of mild lateral recess stenosis at the L5-S1 level with mild compression of the traversing left S1 nerve. Also evidence of mild lateral recess stenosis and compression of the left L5 nerve. ASSESSMENT/PLAN (M54.16) Lumbar radiculopathy (primary encounter diagnosis) Comment: Patient with lumbar spine pain and bilateral lower limb pain paresthesias. Suspect patient's lower limb paresthesias could be a combination of mild lumbar radiculitis and some paresthesias likely related to her underlying hyperreflexia. Reviewed patient's lumbar MRI shows evidence of straightening of normal lumbar lordosis. There is evidence of variable degrees of foraminal narrowing bilaterally in the L3, L4 as well as at the L5 nerve distribution. There is evidence of an S2 perineural cyst or schwannoma. Advised patient that schwannoma could potentially be related to some of her bladder dysfunction, however, patient denies anysignificant numbness around the perineum. There is some lateral recess stenosis and some mild narrowing near the left L5 and S1 nerve, however, no severe nerve compression. Also discussed the possibility that her repeat recurrent bladder infections and bladder dysfunctioncould be related to upper motor neuron process. We discussed the possibility of pursuing additionalMRI imaging of the cervical and thoracic spine and potentially brain MRI imaging as well. In light of bladder dysfunction discussed the possibility of pursuing brain MRI imaging as well. Plan: PATIENT PLACED ON SPINE CARE PATH (R29.2) Hyperreflexia Comment: Patient's hyperreflexia in the bilateral lower limbs and fasciculations certainly could besigns of underlying upper motor neuron process. Patient had previously undergone EMG which she reports did not suggest the presence of fasciculations, however, on exam visibly fasciculations are present. Discussed possibility of pursuing repeat EMG. Plan: PATIENT PLACED ON SPINE CARE PATH (R01.1) Cardiac murmur Comment: Patient also with systolic murmur. This in combination with patient's tall stature diffusesymptoms certainly also still potentially suggestive of underlying musculoskeletal pathology or potential genetic issues such as Marfan syndrome or Erler's Danlos. Plan: PATIENT PLACED ON SPINE CARE PATH (R25.3) Fasciculation Comment: In light of the presence of fasciculations in the lower limbs discussed potential evaluation with neuromuscular medicine for thorough evaluation, however, we will first proceed with advancedimaging of the cervical thoracic spine and in light of bladder dysfunction we will also proceed with brain MRI before evaluation with neuromuscular medicine. 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 Plan: PATIENT PLACED ON SPINE CARE PATH Imaging Ordered: For possible Cervical Myelopathy due to presence of red flags detailed in HPI and myelopathic exam. Thoracic and brain MRI also ordered in light of upper motor neuron findings fasciculations and bladder dysfunction SIGNATURE: Abiodun Castano DO PATIENT NAME: Edna Sultana DATE: October 21, 2023 TIME: 8:41 AM documented in [facility] History of Present illness Narrative* Ledyedie Emanuel, MULTIPLE DRUM SANDER-CNM - 09/30/2023 10:15 AM EDT Edna Sultana is a 57 y.o.female. No [...] 07/03/2018 Performed by Osmany Dunn MD at [facility] TONSILLECTOMY TUBAL LIGATION FAMILY HX Family [...] MILNER APRN-CNM 09/30/23 1234 [facility] note* Author Yannick Velázquez [facility] Authored September 17, 2023 4:4 1pm The above note written by __ _Prabhjot Tafoya____ acting as human recorder, note dictated by Dr. Layne .I performed the above HPI, ROS, and Examination. I formulated and dictated the treatment plan and was present for entire encounter. Yannick Velázquez D.O. [facility] Work Phone: [phone]) 729-280512-12-2023 Evaluation note* Encounter Date Diagnosis Assessment Notes [...] 5 MG tablets at a pharmacy in [place] to help her wean off the medication. [...] She voices that she is seeing a whiteprinting machine operator on 06-19-23 and has an MRI of the right foot. She thinks she may have a neuroma of the right foot because she has a ball on the bottom of her right foot. Jun, Other 10:05 AM - 10:1 7 AM [facility] Other 11-21-2023 Note Yannick Velázquez DO [address], [place] [address] Re: Edna Sultana Date of Visit: 05/27/2023 Dear Yannick Velázquez DO, Let me know if you have any questions or concerns. Sincerely, MARTIN Moreno MD Providers: The following document(s) were included in the letter: May 27, 2023 11:20:24 EST - (05/27/2023) Neurosurgery Office Visit Note [facility]11-16-2023 Evaluation note* Encounter Date Diagnosis Assessment Notes Treatment Notes Treatment Clinical Notes May, Anxiety (ICD-10 - F41.9) When she gets home from work she is restless, does not know what to do with herself. 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 She did increase her Zoloft to 1 [...] a second opinion with a specialist in [place]. She has pressure in her low back and feels as if there is something going on in her low back. May, Tremor (ICD-10 - R25.1) She voices that both of her hands have been shaking. May, Hypocalcemia (ICD-10 - E83.51) I am going to order lab work to rule out any issue with her parathyroid. May, Other fdc (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 therapy (ICD-10 - Z79.899) May, Weight gain (ICD-10 - R63.5) She has gained six pounds since March (2022). May, Other She has an appointment with Avery her homeopathic doctor who always tells her that her Cortisol level is a mess . [facility] Other 10-24-2023 Evaluation note* Encounter Date Diagnosis Assessment Notes Treatment Notes Treatment Clinical Notes Apr, Anxiety (ICD-10 - F41.9) [facility] Other 2023 Evaluation note* Encounter Date Diagnosis Assessment Notes Treatment Notes Treatment Clinical Notes Apr, Other fdc (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 therapy (ICD-10 - Z79.899) Apr, Vitamin B12 deficiency (ICD-10 - E53.8) Apr, Muscle cramp (ICD-10 - R25.2) Apr, Paresthesia (ICD-10 - R20.2) Apr, Vitamin D deficiency (ICD-10 - E55.9) Apr, Fatigue (ICD-10 - R53.83) [facility] Other 2023 Evaluation note* Encounter Date Diagnosis Assessment Notes Treatment Notes Treatment Clinical Notes Apr, Vitamin B12 deficiency (ICD-10 - E53.8) Apr, Hypokalemia (ICD-10 - E87.6) [facility] Other 09-27-2023 Evaluation note* Encounter Date Diagnosis Assessment Notes Treatment Notes Treatment Clinical Notes Mar, Anxiety (ICD-10 - F41.9) [facility] Other 09-13-2023 Evaluation note* Encounter Date Diagnosis Assessment Notes Treatment Notes Treatment Clinical Notes Mar, Lumbar pain (ICD-10 - M54.50) [facility] Other 09-13-2023 Evaluation note* Encounter Date Diagnosis [...] not want to use an inversion table. [facility] Other 08-09-2023 Evaluation note* Encounter Date Diagnosis Assessment Notes Treatment Notes Treatment Clinical Notes Feb, Lumbar pain (ICD-10 - M54.50) [facility] Other 08-02-2023 Evaluation note* Encounter Date Diagnosis Assessment Notes Treatment Notes Treatment Clinical Notes Feb, Lumbar pain (ICD-10 - M54.50) [facility] Other 07-18-2023 Evaluation note* Encounter Date Diagnosis [...] understanding and is agreeable to treatment plan. [facility] Other 07-05-2023 Evaluation note* Encounter Date Diagnosis Assessment Notes Treatment Notes Treatment Clinical Notes Jan, Thyroid nodule (ICD-10 - E04.1) [facility] Other 06-30-2023 Evaluation note* Encounter Date Diagnosis Assessment Notes Treatment Notes Treatment Clinical Notes Dec, Thyroid nodule (ICD-10 - E04.1) [facility] Other 06-16-2023 Evaluation note* Encounter Date Diagnosis [...] done when it comes to her town. [facility] Other 03-13-2023 Evaluation note* Encounter Date Diagnosis Assessment Notes Treatment Notes Treatment Clinical Notes Sep, Anxiety (ICD-10 - F41.9) [facility] Other 03-13-2023 Evaluation note* Encounter Date Diagnosis [...] continue with it today. She saw a uro/sap bobj developer who referred her to physical therapy for pelvic floor therapy. They are going to see if Dr. Martinez feels her issue may be coming from her back. [facility] Other 02-23-2023 Evaluation note* Encounter Date Diagnosis Assessment Notes Treatment Notes Treatment Clinical Notes Aug, Lumbar degenerative disc disease (ICD-10 - M51.36) [facility] Other 02-01-2023 Evaluation note* Encounter Date Diagnosis Assessment Notes Treatment Notes Treatment Clinical Notes Aug, Spinal stenosis (ICD-10 - M48.00) Aug, DDD (degenerative disc disease), lumbar (ICD-10 - M51.36) Aug, Lumbar pain (ICD-10 - M54.50) [facility] Other 01-13-2023 Evaluation note* Encounter Date Diagnosis [...] symptoms. She did see a surgeon in [place] and he told her that she was [...] noticed it turn flaky. She asked her body corporate manager who told her she didn't know what [...] (ICD-10 - Z80.41) She will see her sap bobj developer next week to discuss a hysterectomy. She would like to have a CA-125 test done. Her grandmother had ovarian cancer. She voices that she would request a total hysterectomy if she is going to have a hysterectomy. Jul, Other terminal operator (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 therapy (ICD-10 - Z79.899) Jul, Other Sometimes if sh e is running and stops she will get pain in both her adrenal glands that is so painful it will cause her to double over in pain. This has only happened a few times. She does feel this when she bends backwards on exam today. [facility] Other 12-28-2022 Evaluation note* Encounter Date Diagnosis Assessment Notes Treatment Notes Treatment Clinical Notes Jun, Lumbar pain (ICD-10 - M54.50) Jun, Lumbar degenerative disc disease (ICD-10 - M51.36) She is not having any radicular symptoms and no urinary tract symptoms. She feels that this is may be related to constipation and would like an order sent to [facility] for an x-ray to see how much stool is present. She is going to see Marty Pugh her physical therapist in [place] next week and hopefully this will help. She has responded well in the past to Medrol Dosepak and would like to have this available to take if desired. side effects/risks/benef its of medication reviewed. Jun, Constipation (ICD-10 - K59.00) Jun, Other 09:15 AM - 09:22 AM [facility] Other 12-19-2022 Evaluation note* Encounter Date Diagnosis [...] the medication. 2:50 PM - 2:58 PM [facility] Other 11-03-2022 Evaluation note* Encounter Date Diagnosis Assessment Notes Treatment Notes Treatment Clinical Notes May, Cystitis (ICD-10 - N30.90) [facility] Other 10-05-2022 Evaluation note* Encounter Date Diagnosis [...] likely fighting something viral a month ago. [facility] Other 09-20-2022 Evaluation note* Encounter Date Diagnosis [...] will return to see the neurosurgeon in [place] for her back. Mar, Other She voices that she had lab drawn through her employer to include cholesterol, she will provide the office with a copy of her results. 8:26 AM - 8:40 AM [facility] Other 08-12-2022 Evaluation note* Encounter Date Diagnosis Assessment Notes Treatment Notes Treatment Clinical Notes Feb, Anxiety (ICD-10 - F41.9) [facility] Other 07-25-2022 Evaluation note* Encounter Date Diagnosis [...] we will help you get into specialist. [facility] Other 07-08-2022 NotePROCEDURE: XR KNEE LT 4V [...] Electronically authenticated by: JENNIFER NICOLAS Date: 2022-01-11 12:09[facility]07-08-2022 Evaluation note* Encounter Date Diagnosis Assessment Notes Treatment Notes Treatment Clinical Notes Jan, Knee pain, left (ICD-10 - M25.562) [facility] Other [id number] Evaluation note* Encounter Date Diagnosis Assessment Notes [...] and is not winded when she runs. [facility] Other 06-07-2022 Evaluation note* Encounter Date Diagnosis Assessment Notes Treatment Notes Treatment Clinical Notes Dec, Anxiety (ICD-10 - F41.9) [facility] Other 06-07-2022 Evaluation note* Encounter Date Diagnosis [...] ts of medication were reviewed. Dec, Other fdc (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 therapy (ICD-10 - Z79.899) I [...] copy of this once it is done. [facility] Other 03-07-2022 Evaluation note* Encounter Date Diagnosis [...] She is considering seeing a pharmacist from [facility] to discuss a different version of Cyanocobalamin that does not contain cyanide, I did advise her that if she does this they can send us a prescription request to sign. Sep, Other She voices that her hair is falling out from having had COVID-19 but it seems to be slowing down. [facility] Other 12-06-2021 Evaluation note* Encounter Date Diagnosis [...] drinking alot of water and began drinking [place] artichoke and feels her symptoms resolved. She [...] to continue with what she is doing. [facility] Other Evaluation + Plan note No data available for this section [facility] Evaluation noteNo InformationNort [facility] Other Evaluation noteNo assessment information available [facility] Work Phone: Evaluation note* Diagnosis PMB (postmenopausal bleeding)- Primary Postmenopausal bleeding Vaginal atrophy Postmenopausal atrophic vaginitis documented in this encounter [facility] Diagnosis Lumbar radiculopathy- Primary Thoracic or lumbosacral neuritis or radiculitis, unspecified Hyperreflexia Abnormal reflex Cardiac murmur Undiagnosed cardiac murmurs Fasciculation Abnormal involuntary movements Neuromuscular scoliosis of thoracic region Scoliosis associated with other condition Chiari I malformation (HCC) Compression of brain Spinal stenosis of cervical region Spinal stenosis in cervical region Syringomyelia and syringobulbia (HCC) Syringomyelia and syringobulbia Demyelinating disease of central nervous system (HCC) Demyelinating disease of central nervous system, unspecified documented [facility] this encounter [facility] Diagnosis Fasciculation- Primary Abnormal involuntary movements Hyperreflexia Abnormal reflex Degeneration of lumbar or lumbosacral intervertebral disc documented in this encounter [facility]* Diagnosis Hyperreflexia Abnormal reflex Syringomyelia and syringobulbia (HCC) Syringomyelia and syringobulbia documented in this encounter [facility]* Diagnosis Hyperreflexia Abnormal reflex Demyelinating disease of central nervous system (HCC) Demyelinating disease of central nervous system, unspecified [facility] Diagnosis Hyperreflexia Abnormal reflex Spinal stenosis of cervical region Spinal stenosis in cervical region Demyelinating disease of central nervous system (HCC) Demyelinating disease of central nervous system, unspecified [facility]* Diagnosis Disturbance of skin sensation- Primary Fasciculation Abnormal involuntary movements Hyperreflexia Abnormal reflex [facility]* Diagnosis Onset Date Resolution Status Abnormal finding on MRI of brain acute Anxiety acute Lipoma acute Twitching acute Vitamin B12 deficiency acute [facility] Work Phone: Evaluation note* Diagnosis AB (obstructive sleep apnea)- Primary Obstructive sleep apnea (adult) (pediatric) Hypersomnia Hypersomnia, unspecified Sleep disturbance Unspecified sleep disturbance Catathrenia Sleep talking Other dysfunctions of sleep stages or arousal from sleep documented in this encounter [facility] HealthcareEvaluation note* Diagnosis Brain cyst- Primary Cerebral cysts documented in this encounter [facility] general Narrative - Reported* Type Description Date [...] enosis and Herniated Disc L4-L5 ; Dr. Cazaers Surgical History 2006 Surgical History bilateral tailor bunionectiomy Surgical History Tonsicllectomy Surgical History tubaligation Surgical History laparascopy to check for adhesi ons from Surgical History Cystoscopy and urethral dilatio n - Dr. Zepeda 02-17-2020 Hospitalization History childbirth 2003 200 6 Hospitalization History see above [facility] Other [facility] general Narrative - Reported* Type Description Date [...] Surgical History Cystoscopy and urethral dilatio devaughn - Dr. Zepeda 02-17-2020 Surgical History Colonoscopy, Dr. Dunn, needs repeat in 2027 2017 Hospitalization History childbirth 2003 200 6 Hospitalization History see above [facility] Other [employer] general Narrative - Reported* Type Description Date [...] 2003 200 6 Hospitalization History see above [facility] Other History general Narrative - Reported* Type [...] 2003 200 6 Hospitalization History see above [facility] Other Hospital Discharge instructions No data available for this section [facility] Surgery [facility] InstructionsNot on filedocumented in this encounter [facility] No data available for this section [facility] Surgery Alonso Reason for referral (narrative)* Diagnostic Procedure Only (Routine) - Closed Specialty Diagnoses / Procedures Referred By Contac t Referred To Contact MR IMAGING Diagnoses Hyperreflexia Syringomyelia and syringobulbia (HCC) Procedures MRI BRAIN WO/W IVCON MRI BRAIN BRAIN STEM W/O W/[place] [address] [place] [address] Mr [facility] [place] [address] Referral ID Status Reason Start Date Expiration Date V isits Requested Visits Authorized [id number] Closed Auto-Generate d Referral 11/06/2023 07/06/2024 1 1 [facility] for referral (narrative)* Diagnostic Procedure Only (Routine) - Closed Specialty Diagnoses / Procedures Referred By Contac t Referred To Contact MR IMAGING Diagnoses Hyperreflexia Demyelinating disease of central nervous system (HCC) Procedures MRI THORACIC SPINE WO/W IVCON MRI SPINAL CANAL THORACIC W/O & [place] [address] [place] [id number] [place] [address] Referral ID Status Reason Start Date Expiration Date V isits Requested Visits Authorized [id number] Closed Auto-Generate d Referral 11/06/2023 07/06/2024 1 1 [facility] for referral (narrative)* Diagnostic Procedure Only (Routine) - Closed Specialty Diagnoses / Procedures Referred By Contac t Referred To Contact MR IMAGING Diagnoses Hyperreflexia Spinal stenosis of cervical region Demyelinating disease of central nervous system (HCC) Procedures MRI CERVICAL SPINE WO/W IVCON MRI SPINAL CANAL CERVICAL W/O & [place] [address] [place] [id number] Mr [facility] Referral ID Status Reason Start Date Expiration Date V isits Requested Visits Authorized [id number] Closed Auto-Generate d Referral 11/06/2023 07/06/2024 1 1 T [facility] for visit Narrativecontinued back pain, discuss multiple issues, see treatment planAndover Orqis Medical Other Reason for visit Narrative* Diagnostic Procedure Only (Routine) - Closed Specialty Diagnoses / Procedures Referred By Contac t Referred To Contact MR IMAGING Diagnoses Hyperreflexia Demyelinating disease of central nervous system (HCC) Procedures MRI THORACIC SPINE WO/W IVCON MRI SPINAL CANAL THORACIC W/O & W/[place] [address] [place] [address] [place] [address] Referral ID Status Reason Start Date Expiration Date V isits Requested Visits Authorized [id number] Closed Auto-Generate d Referral 11/06/2023 07/06/20[address] [facility] Narrative* Diagnostic Procedure Only (Routine) - Closed Specialty Diagnoses / Procedures Referred By Ryan alejandro Referred To Contact MR IMAGING Diagnoses Hyperreflexia Spinal stenosis of cervical region Demyelinating disease of central nervous system (HCC) Procedures MRI CERVICAL SPINE WO/W IVCON MRI SPINAL CANAL CERVICAL W/O & W/[place] [address] [place] [address] [place] [address] Referral ID Status Reason Start Date Expiration Date V isits Requested Visits Authorized [id number] Closed Auto-Generate d Referral 11/06/2023 07/06/2024 [address] [facility] Summary Purpose Family History Relationship Condition Age [...] Unknown Family history of mental disorder Unknown Relationship Condition Age at Onset Recorded [...] Malignant neoplasm of urinary bladder Unk nown mother Unknown Hypertension Unknown Family history of mental disorder Unknown Advance Directives Advance Directive Response Recorded Date/ Time Advance Directives No March 8:56am Advance Directive Response Recorded Date/ Time Advance Directives No March 7:56am Advance Directive Response Recorded Date/ Time Advance Directives No September 16, 2 024 4:06pm Documents on File Type Date Recorded 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 REFERRING M.D.: Yannick Velázquez, DO [address] [place] [address] Consultation requested by Gisel for an opinion regarding Ms Sultana, and my final recommendationswill be communicated back to the requesting provider by way of shared Medical record, fax or lettervia [place] mail. HISTORY CHIEF COMPLAINT: uti/urgency HPI : Edna uSltana is a 54 year old female had [...] bulge. no blood in urine QUESTIONNAIRE: Questionnaire: [facility] Female Pelvic Medicine Base Question Answer [...] Laryngitis Vitamin B12 deficiency nervous system syndrome Chief Complaint med refill/upper rt side pain Amb Documentation discuss meds Reason for Visit Anxiety Constipation Laryngitis Vitamin B12 deficiency nervous system syndrome Anxiety Degenerative disc disease, lumbar Twitching Vitamin B12 deficiency Chief Complaint discuss meds Amb Documentation med refill Reason for Visit Anxiety Degenerative disc disease, lumbar Twitching Vitamin B12 deficiency Abnormal finding on MRI of brain Anxiety Degenerative disc disease, lumbar Thyroid nodule Twitching Vitamin B12 deficiency Chief Complaint med refill Reason for Visit Abnormal finding on MRI of brain Anxiety Lipoma Twitching Vitamin B12 deficiency Reason for Referral Specialty Diagnoses / Procedures Referred By Ryan alejandro Referred To Contact MR IMAGING Diagnoses Brain cyst Procedures MRI BRAIN WO/W IVCON MRI BRAIN BRAIN STEM W/O W/CONTRAST MATERIAL Janna Gilman MD [address] [place] [address] Mr Imaging [place] [address] Referral ID Status Reason Start Date Expiration Date Visits Requested Visits Authorized [id number] New Request Auto-Generat ed Referral 06/05/2025 1 1 Specialty Diagnoses / Procedures Referred By Contac t Referred To Contact Diagnoses Hypersomnia Sleep disturbance Catathrenia Sleep talking Procedures Multiple sleep latency test Suzanne Gee DO [address] [place] [address] Referral ID Status Reason Start Date Expiration Date V isits Requested Visits Authorized [id number] Pending Review 04/15/2024 10/12/2024 1 1 Specialty Diagnoses / Procedures Referred By Contac t Referred To Contact Diagnoses AB (obstructive sleep apnea) Procedures Polysomnography Suzanne Gee DO [address] [place] [address] Referral ID Status Reason Start Date Expiration Date V isits Requested Visits Authorized [id number] Pending Review 04/15/2024 10/12/2024 1 1 Specialty Diagnoses / Procedures Referred By Contac t Referred To Contact Neurology Diagnoses Fasciculation Hyperreflexia Procedures CONSULT TO NEUROLOGY OFFICE/OUTPATIENT NEW HIGH MDM 60 [place] [address] [place] [id number] Referral ID Status Reason Start Date Expiration Date Visits Requested Visits Authorized [id number] Authorized PCP Requested Referral 12/12/2023 12/11/2024 1 1 Specialty Diagnoses / Procedures Referred By Contac t Referred To Contact MR IMAGING Diagnoses Hyperreflexia Demyelinating disease of central nervous system (HCC) Procedures MRI BRAIN WO IVCON MRI BRAIN BRAIN STEM W/[place] [address] [place] [address] Mr Imaging [facility] Referral ID Status Reason Start Date Expiration Date Visits Requested Visits Authorized [id number] Pending Review Auto-Generat ed Referral 10/27/2023 11/25/2024 1 1 Specialty Diagnoses / Procedures Referred By Contac t Referred To Contact MR IMAGING Diagnoses 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) Demyelinating disease of central nervous system (HCC) Procedures MRI THORACIC SPINE WO IVCON MRI SPINAL CANAL THORACIC [place] [address] [place] [address] [place] [address] Referral ID Status Reason Start Date Expiration Date Visits Requested Visits Authorized [id number] Pending Review Auto-Generat ed Referral 10/27/2023 11/25/2024 1 1 Specialty Diagnoses / Procedures Referred By Contac t Referred To Contact MR IMAGING Diagnoses Hyperreflexia Neuromuscular scoliosis of thoracic region Chiari I malformation (HCC) Spinal stenosis of cervical region Syringomyelia and syringobulbia (HCC) Demyelinating disease of central nervous system (HCC) Procedures MRI CERVICAL SPINE WO IVCON MRI SPINAL CANAL [place]ERVICAL W/[place] [address] [place] [id number] [place] [address] Referral ID Status Reason Start Date Expiration Date Visits Requested Visits Authorized [id number] Pending Review Auto-Generat ed Referral 10/27/2023 11/25/2024 1 1 Reason appt pt needs cons ult to discuss twitching, numbness right foot, neuropathy Diagnosis 1 Twitching (R25.3) Referral Organization [facility] Referring Provider First Name Yannick Referring Provider Last Name Gisel Referring Provider Specialty Family Prac loretta Referred Organization [facility] Referred Provider Nathen Hoover Referred Address [address] [place],[address] Referred Provider Specialty Neurology Referral Priority Routine [...] 1 Thyroid nodule (E04. 1) Referral Organization [facility] Referring Provider First Name Yannick Referring Provider Last Name Gisel Referring Provider Specialty Family Prac loretta Referred Organization [facility] Referred Provider Reza Gorman Referred Address ,[place], [place],[address] Referred Provider Specialty Ear, Nose an d [...] Lumbar degenerative disc disease (M51.36) Referral Organization [facility] Gupta Referring Provider First Name Yannick Referring Provider Last Name Gisel Referring Provider Specialty Family Bianka burgos Referred Organization [facility] u[facility]gery Referred Provider Victorina Martinez Referred Address [address] [address] ,[place], [place],[address] Referred Provider Specialty Neurological Surgery Referral Priority Routine Referral Appointment Date 2022-09-18 General Notes Victorina Cassidy 08/29/2022 01:50:55 PM > referral sent p2p. pt understands she will be contacted to schedule this appt. Victorina Cassidy 08/30/2022 10:55:52 AM > appt scheduled on 09/18/22 at 8:20am Additional Source Comments INFORMATION SOURCE (unrecogn ized section and content) DATE CREATED AUTHOR 11/17/2019 [facility] DATE CREATED AUTHOR AUTHOR'S ORGANIZ ATION 07/06/2022 [facility] DATE CREATED AUTHOR AUTHOR'S ORGANIZ ATION 03/08/2023 [facility] DATE CREATED AUTHOR AUTHOR'S ORGANIZ ATION 05/29/2023 [facility] DATE CREATED AUTHOR AUTHOR'S ORGANIZ ATION 10/01/2023 [facility] DATE CREATED AUTHOR AUTHOR'S ORGANIZ ATION 01/08/2024 [facility] DATE CREATED AUTHOR AUTHOR'S ORGANIZ ATION 03/29/2024 [facility] DATE CREATED AUTHOR AUTHOR'S ORGANIZ ATION 04/17/2024 [facility] DATE CREATED AUTHOR AUTHOR'S ORGANIZ ATION 04/22/2024 Aj Chahal [facility] Source Comments (unrecognize d section and content) In the event this informatio n is protected by the Federal Confidentiality of Alcohol and Drug Abuse Patient Records regulations: The Federal rules restrict any use of the information to criminally investigate or prosecute any alcohol or drug abuse patient.[facility] the event this information is protected by the Federal Confidentiality of Alcohol and Drug Abuse Patient Records regulations: The Federal rules restrict any use of the information to criminally investigate or prosecute any alcohol or drug abuse patient.[facility] Center[facility] the event this information is protected by the Federal Confidentiality of Alcohol and Drug Abuse Patient Records regulations: The Federal rules restrict any use of the information to criminally investigate or prosecute any alcohol or drug abuse patient.[facility] Center[facility] the event this information is protected by the Federal Confidentiality of Alcohol and Drug Abuse Patient Records regulations: The Federal rules restrict any use of the information to criminally investigate or prosecute any alcohol or drug abuse patient.[facility] Center[facility] the event this information is protected by the Federal Confidentiality of Alcohol and Drug Abuse Patient Records regulations: The Federal rules restrict any use of the information to criminally investigate or prosecute any alcohol or drug abuse patient.[facility] Center[facility] the event this information is protected by the Federal Confidentiality of Alcohol and Drug Abuse Patient Records regulations: The Federal rules restrict any use of the information to criminally investigate or prosecute any alcohol or drug abuse patient.[facility] Center[facility] the event this information is protected by the Federal Confidentiality of Alcohol and Drug Abuse Patient Records regulations: The Federal rules restrict any use of the information to criminally investigate or prosecute any alcohol or drug abuse patient.[facility] CenterIn the event this information is protected by the Federal Confidentiality of Alcohol and Drug Abuse Patient Records regulations: The Federal rules restrict any use of the information to criminally investigate or prosecute any alcohol or drug abuse patient.[facility] CenterIn the event this information is protected by the Federal Confidentiality of Alcohol and Drug Abuse Patient Records regulations: The Federal rules restrict any use of the information to criminally investigate or prosecute any alcohol or drug abuse patient.[facility] CenterIn the event this information is protected by the Federal Confidentiality of Alcohol and Drug Abuse Patient Records regulations: The Federal rules restrict any use of the information to criminally investigate or prosecute any alcohol or drug abuse patient.[facility] CenterIn the event this information is protected by the Federal Confidentiality of Alcohol and Drug Abuse Patient Records regulations: The Federal rules restrict any use of the information to criminally investigate or prosecute any alcohol or drug abuse patient.[facility] CenterIn the event this information is protected by the Federal Confidentiality of Alcohol and Drug Abuse Patient Records regulations: The Federal rules restrict any use of the information to criminally investigate or prosecute any alcohol or drug abuse patient.[facility] CenterIn the event this information is protected by the Federal Confidentiality of Alcohol and Drug Abuse Patient Records regulations: The Federal rules restrict any use of the information to criminally investigate or prosecute any alcohol or drug abuse patient.[facility] CenterIn the event this information is protected by the Federal Confidentiality of Alcohol and Drug Abuse Patient Records regulations: The Federal rules restrict any use of the information to criminally investigate or prosecute any alcohol or drug abuse patient.[facility] Reason for Visit (unrecogniz ed section and content) Reason Comments Consult bladder prolapse, tw daron, uncomfortable, pressure with constipation Reason Comments Postmenopausal bleeding Reason Comments New Patient Evaluation Low Back Pain States a low back pa in with bilateral calf twitching for about 6 months. Pain 3/10 Reason Comments MRI Appointment Follow Up Reason Comments MRI Appointment Reason Comments Follow Up Results - Mri Reason Comments Radiology MRI Specialty Diagnoses / Procedures Referred By Contac t Referred To Contact MR IMAGING Diagnoses Hyperreflexia Syringomyelia and syringobulbia (HCC) Procedures MRI BRAIN WO/W IVCON MRI BRAIN BRAIN STEM W/O W/[place] [address] [place] [address] Mr Imaging [facility] Referral ID Status Reason Start Date Expiration Date V isits Requested Visits Authorized [id number] Closed Auto-Generate d Referral 11/06/2023 07/06/2024 1 1 Reason Comments New Patient Consult Specialty Diagnoses / Procedures Referred By Contalex t Referred To Contact Neurology Diagnoses Fasciculation Hyperreflexia Procedures CONSULT TO NEUROLOGY OFFICE/OUTPATIENT NEW HIGH MDM 60 [place] [address] [place] [address] Referral ID Status Reason Start Date Expiration Date V isits Requested Visits Authorized [id number] Closed PCP Requested Referral 12/12/2023 12/11/2024 1 1 Reason Comments Sleeping Problem Marychuy KNOX, Stephanie - 09/06/2020 1:40 PM EST Nursing Notes (unrecognized section and content) PVR 0 documented in this encounter Care Teams (unrecognized sec tion and content) Team Status: Active Member Role Status Dates Yannick Velázquez DO Primary Care Provider Active Team Status: Active Member Role Status Austin Velázquez DO Primary Care Provide r, Attending Provider Active Start: October 07, 2023 Team Status: Active Member Role Status Austin Velázquez DO Primary Care Provide r, Attending Provider Active Start: October 25, 2023 Team Status: Inactive Member Role Status Austin Velázquez DO Primary Care Provide r, Attending Provider Active Start: November 10, 2023 End: November 10, 2023 Team Status: Active Member Role Status Austin Velázquez DO Primary Care Provider Active S tart: November 12, 2023 ALBERT Brennan Attending Provider Active S tart: November 12, 2023 Team Status: Inactive Member Role Status Austin Velázquez DO Primary Care Provide r, Attending Provider Active Start: December 24, 2023 End: December 24, 2023 Team Status: Inactive Member Role Status Austin Velázquez DO Primary Care Provider, Attending Pro vider Active Team Status: Inactive Member Role Status Dates SELAM Mahoney Attending Provider Active PHYSICIAN NO FAMILY Primary Care Provider Active Team Status: Active Member Role Status Dates PHYSICIAN NO FAMILY Primary Care Provider Active Team Status: Inactive Member Role Status Dates Yannick Velázquez , Primary Care Provider Active Pelon Blandon APRN Emergency Provider Active Team Status: Inactive Member Role Status Dates Yannick Velázquez , Primary Care Provider Active Victorina Martinez MD Attending Provider Active Team Status: Inactive Member Role Status Dates Yannick Velázquez , Primary Care Provide r, Attending Provider Active Start: September 17, 2023 End: September 17, 2023 Five Roll Refiner Batch Mixer Relationship Specialty Start Date End Date Yannick Velázquez DO [address] [place] [address] PCP - General 06/11/17 Five Roll Refiner Batch Mixer Relationship Specialty Start Date End Date Yannick Velázquez DO [address] [place] [address] PCP - General Family Medicine 08/31/20 Yannick Velázquez, DO [address] [place] [address] Referring Family Medicine 08/31/20 Five Roll Refiner Batch Mixer Relationship Specialty Start Date End Date Yannick Velázquez DO [address] [place] [address] PCP - General Family Medicine 08/31/20 Yannick Velázquez, DO [address] [place] [address] Referring Family Medicine 08/31/20 Five Roll Refiner Batch Mixer Relationship Specialty Start Date End Date Yannick Velázquez DO [address] [place] [address] PCP - General Family Medicine 08/31/20 Yannick Velázquez DO [address] [place] [address] Referring Family Medicine 08/31/20 Five Roll Refiner Batch Mixer Relationship Specialty Start Date End Date Yannick Velázquez DO [address] [place] [address] PCP - General Family Medicine 08/31/20 Yannick Velázquez, [address] [place] [address] Referring Family Medicine 08/31/20 Five Roll Refiner Batch Mixer Relationship Specialty Start Date End Date Yannick Velázquez DO [address] [place] [address] PCP - General Family Medicine 08/31/20 Yannick Velázquez, [address] [place] [address] Referring Family Medicine 08/31/20 Team Status: Active Member Role Status Dates Yannick Velázquez DO Primary Care Provider Active S tart: September 24, 2023 Prabhjot Tafoya LPN Attending Provider Active St art: September 24, 2023 Five Roll Refiner Batch Mixer Relationship Specialty Start Date End Date Yannick Velázquez DO [address] [place] [address] PCP - General Family Medicine 08/31/20 Yannick Velázquez, [address] [place] [address] Referring Family Medicine 08/31/20 Five Roll Refiner Batch Mixer Relationship Specialty Start Date End Date Yannick Velázquez DO [address] [place] [address] PCP - General Family Medicine 08/31/20 Yannick Velázquez, DO [address] [place] [address] Referring Family Medicine 08/31/20 Five Roll Refiner Batch Mixer Relationship Specialty Start Date End Date Yannick Velázquez, DO [address] [place] [address] PCP - General Family Medicine 08/31/20 Yannick Velázquez, DO [address] [place] [address] Referring Family Medicine 08/31/20 Five Roll Refiner Batch Mixer Relationship Specialty Start Date End Date Yannick Velázquez, DO [address] [place] [address] PCP - General Family Medicine 08/31/20 Yannick Velázquez, DO [address] [place] [address] Referring Family Medicine 08/31/20 Five Roll Refiner Batch Mixer Relationship Specialty Start Date End Date Yannick Velázquez, DO [address] [place] [phone] PCP - General Family Medicine 08/31/20 Yannick Velázquez, DO [address] [place] [address] Referring Family Medicine 08/31/20 Five Roll Refiner Batch Mixer Relationship Specialty Start Date End Date Yannick Velázquez, DO [address] [place] [address] PCP - General Family Medicine 08/31/20 Yannick Velázquez DO [address] [place] [address] Referring Family Medicine 08/31/20 Team Status: Active Member Role Status Dates Yannick Velázquez DO Primary Care Provider Active S tart: March 23, 2024 Janna Gilman MD Attending Provider Active Sta rt: March 23, 2024 Team Status: Inactive Member Role Status Dates Yannick Velázquez DO Primary Care Provide r, Attending Provider Active Start: March 24, 2024 End: March 24, 2024 Five Roll Refiner Batch Mixer Relationship Specialty Start Date End Date Yannick Velázquez MD [address] [place] [address] PCP - General Family Medicine 01/08/23 Five Roll Refiner Batch Mixer Relationship Specialty Start Date End Date Yannick Velázquez MD [address] [place], [place] [id number] PCP - General Family Medicine 01/08/23 Goals (unrecognized section and content) Goals may [...] BE BASED ON THE PRIMARY CLINICAL RECORDS. [employer] provides no warranty or guarantee of the accuracy or completeness of information in this document.
[2024-05-10 22:12] LABS: Bilirubin Urine NEGATIVE (NEGATIVE); Blood Urine MODERATE (NEGATIVE); Clarity Urine CLEAR (CLEAR); Color Urine LT. GREEN (YELLOW); Glucose Urine UA NEGATIVE (NEGATIVE); Ketones Urine NEGATIVE (NEGATIVE); Leukocyte Esterase Urine MODERATE (NEGATIVE); Nitrite Urine NEGATIVE (NEGATIVE); Protein Urine NEGATIVE (NEG/TRACE); Urobilinogen Urine 0.2 EU/dL (0.2-1.0); pH Urine 7.5 (5.0-9.0)
[2024-05-10 22:14] LABS: Urine Microscopic Indicated YES
[2024-05-10 22:21] LABS: Bacteria Urine NONE SEEN #/HPF (NONE SEEN); Cast Seen? NONE SEEN #/LPF (NONE SEEN); Crystals Seen? None Seen #/HPF (None Seen); Mucus Urine NONE SEEN (NONE SEEN); Squamous Epithelial Cell Urine FEW #/LPF (NONE/RARE); Urine Culture Indicated YES
--- NOTE | 2024-05-10 22:29 | ED_ITS ---
HPI - Female Genitourinary General Chief complaint: Urogenital-Female Stated complaint: POSS UTI Time Seen by Provider: 05/10/24 21:57 Source: patient Mode of arrival: walk-in Limitations: no limitations History of Present Illness HPI Narrative: This 58-year-old female presents for evaluation of urinary frequency urgency and dysuria. Symptoms started around 5 PM. She is having pressure in her lower abdomen but no flank pain nausea or vomiting. She has not had a fever. The patient states she is not usually sexually active but several days ago had sex with her . She is postmenopausal and states that she typically gets infections after having intercourse. She is not having any vaginal bleeding or other complaints. Related Data Home Medications ?Medication ?Instructions ?Recorded ?Confirmed No Known Home Medications 05/10/24 05/10/24 Allergies Allergy/AdvReac Type Severity Reaction Status Date / Time adhesive Allergy Intermediate Unknown Verified 05/10/24 21:54 Review of Systems ROS Status of ROS 10 or more systems reviewed and unremark able except as noted in history and below PFSH PFSH Social History Smoking status: Never smoker Little interest or pleasure in doing things: not at all Feeling down, depressed, or hopeless: not at all Exam Narrative Exam Narrative: Vital signs and Nursing Notes reviewed: Patient is afebrile with a normal pulse, blood pressure is mildly elevated at 153/97, she is not hypoxic with pulse ox of 98% on room air General: Awake, alert, oriented, no acute distress, lying comfortably on the stretcher HEENT: Normocephalic atraumatic, mucous membranes are moist and pink, eyes are clear, normal conjunctiva, vision is grossly intact Chest: Lungs are clear to auscultation with good air entry, there is no wheezing rhonchi or rales appreciated no accessory muscle use, patient is speaking in complete sentences-no chest wall tenderness to palpation CVS: Regular rate and rhythm S1-S2, no murmurs rubs or gallops, pulses are brisk and equal bilaterally ABD: Soft, nondistended, nontender, no rebound guarding or rigidity, bowel sounds are normal, no pulsatile masses appreciated, no flank tenderness Extremities: Moving all extremities, no lower extremity tenderness or swelling noted, negative Homans' sign, pulses are brisk and equal bilaterally Skin: Normal in appearance without rash,pallor, petechiae or purpura Neuro: No focal deficits Constitutional Vital Signs, click to edit/add: Last Vital Signs Temp 97.6 F 05/10/24 21:51 Pulse 91 H 05/10/24 21:51 Resp 18 05/10/24 21:51 BP 153/97 H 05/10/24 21:51 Pulse Ox 98 05/10/24 21:51 O2 Del Method Room Air 05/10/24 21:51 Course Vital Signs Vital signs: Vital Signs Temperature 97.6 F 05/10/24 21:51 Pulse Rate 91 H 05/10/24 21:51 Respiratory Rate 18 05/10/24 21:51 Blood Pressure 153/97 H 05/10/24 21:51 Pulse Oximetry 98 05/10/24 21:51 Oxygen Delivery Method Room Air 05/10/24 21:51 Temperature 97.6 F 05/10/24 21:51 Pulse Rate 91 H 05/10/24 21:51 Respiratory Rate 18 05/10/24 21:51 Blood Pressure 153/97 H 05/10/24 21:51 Pulse Oximetry 98 05/10/24 21:51 Oxygen Delivery Method Room Air 05/10/24 21:51 MDM - Female Genitourinary MDM Narrative Medical decision making narrative: This 58-year-old female presents for evaluation of urinary frequency urgency and dysuria that started around 5 PM. She has not had any hematuria. She denies any flank pain nausea or vomiting. She has not had a fever. Her urine is positive for 10-20 white blood cells per high-power field and moderate leukocyte esterase. It is negative for nitrites. She has used Cipro in the past with good results and tolerated it well. She was given a dose of Cipro, Pyridium and Zofran in the emergency department, pending culture results. She will be discharged home to prescription for Cipro, Pyridium and Diflucan to use as needed if she develops vaginitis due to the antibiotic use. She was encouraged to drink plenty of fluids and return to the emergency department for fever, vomiting, flank pain or any concerns. Lab Data Labs: Lab Results 05/10/24 Range/Units 22:00 Urine Color Lt. green (YELLOW) Urine Clarity Clear (CLEAR) Urine pH 7.5 (5.0-9.0) Ur Specific [place] 1.010 (1.005-1.025) Urine Protein Negative (NEG/TRACE) mg/dL Urine Glucose (UA) Negative (NEGATIVE) mg/dL Urine Ketones Negative (NEGATIVE) mg/dL Urine Occult Blood Moderate A (NEGATIVE) Urine Nitrite Negative (NEGATIVE) Urine Bilirubin Negative (NEGATIVE) Urine Urobilinogen 0.2 (0.2-1.0) EU/dL Ur Leukocyte Esterase Moderate A (NEGATIVE) Urine RBC 5-10 A (0-2) #/HPF Urine WBC 10-20 A (NONE SEEN) #/HPF Ur Squamous Epith Cells Few A (NONE/RARE) #/LPF Urine Crystals None seen (None Seen) #/HPF Urine Bacteria None seen (NONE SEEN) #/HPF Urine Casts None seen (NONE SEEN) #/LPF Urine Mucus None seen (NONE SEEN) Ur Culture Indicated? Yes Discharge Plan Discharge Chief Complaint: Urogenital-Female Clinical Impression: Urinary tract infection Patient Disposition: Home, Self-Care Time of Disposition Decision: 22:25 Prescriptions / Home Meds: No Action No Known Home Medications Print Language: Venezuelan Instructions: Urinary Tract Infection in Women (DC) Referrals: [place] Gee DO [Primary Care Provider] - 1 week
[2024-05-10] MEDS: CIPROFLOXACIN HCL 500 MG TABLET PO (22:46)
[2024-05-10] MEDS: ONDANSETRON 4 MG RAPDIS TABLET SL (22:46)
--- NOTE | 2024-05-10 22:51 | PC.NURSE ---
i gave verbal and written discharge orders along with 3 Rx to this patient, she voices yes to understanding these discharge orders along with Rxs, at time of discharge this patient voics no concerns and shows no signs of distress
== END 2024-05-10 22:52 | disposition home or self-care (01) ==
PROVIDERS: Emergency Provider Emergency Medicine; PCP Psychiatry & Neurology Neurology
DX: N39.0 Urinary tract infection, site not specified (principal)
CPT/HCPCS: 81001; 87086; 99284; Q0162

== ENCOUNTER 2024-05-12 20:47 | Outpatient (OUT) | payer OTHER, SELFPAY ==
--- OUTSIDE RECORDS SUMMARY | 2024-05-12 20:50 | XMS_ITS | CCD ---
Author Organization [facility] Care Team Providers Care Linux Developer Name Role Phone Yannick Velázquez Primary Care [...] Unavailable DO Yannick Velázquez Primary Care Provider [phone] DO Yannick Velázquez Attending Provider Victorina Martinez Unavailable DO Yannick Velázquez Primary Care Provider DO Yannick Velázquez Attending Provider Tonia Sandoval Unavailable [facility] Provider MD Victorina Martinez Attending Provider Yannick Velázquez [...] Unavailable Yannick Velázquez DO Primary Care Provider [phone] Yannick Velázquez DO Unavailable [phone] Yannick Velázquez DO Primary Care Provider [phone] AKBAR SMITH Referring Unavailable YANINCK VELÁZQUEZ Primary Care Unavailable AKBAR SMITH Attending [...] Unavailable Yannick Velázquez MD Primary Care Provider Yannick Velázquez Referring Unavailable Florentin NEVILLE Attending Unavailable Yannick Velázquez Primary Care Physician Allergies Allergy Classification Reported Allergen(s) Allergy Type Date of Onset Reaction(s) Facility (15 sources) Adhesive Tape-Silicones; Translations: [ADHESIVE TAPE-SILICONES] Drug Allergy 09-07-19 21 Rash, Hives [facility] (20 sources) Nitrofurantoin; Translations: [Macrobid] Drug Allergy Diarrhea (finding) [facility] Repository (20 sources) steri-strips Propensity to adverse reactions rash [facility] [employer] Other (3 sources) Adhesive bandage; Translations: [Adhesive Bandage] Drug allergy (disorder) 12-17-19 19 Eruption of skin (disorder) [facility] Repository (20 sources) NITROFURANTOIN, MACROCRYSTALS / Nitrofurantoin, Monohydrate Drug Allergy diarrhea [facility] [employer] Other (1 source) steri stips; Translations: [steri stips] Propensity to adverse reactions (disorder) [facility] Repository (4 sources) Adhesive Tape Allergy to substance 09-17-19 rash [facility] (7 sources) Nitrofurantoin Drug Allergy 09-17-19 diarrhea [facility] (7 sources) Adhesive agent; Translations: [ADHESIVE] Propensity to adverse reactions to drug 05-20-20 06 Itching, Rash, Swelling [facility] (4 sources) Fluorouracil-Adhe sive Bandage; Translations: [FLUOROURACIL-ADH ESIVE BANDAGE] Drug Allergy 12-17-19 19 Rash [facility] (3 sources) Wound Dressing Adhesive Drug Allergy 01-10-20 23 Rash [facility] Work Phone: Medications Current Medications [...] Status: Taking; Provider: Gisel Lanier ( ) Multiple Vitamin (multivitamin) tablet [...] Start: 02-27-2017 take [address] [facility] every eight hours as needed ALPRAZolam (XANAX) 0.25 mg tablet Take 0.5 mg by mouth three times a day as needed. 02/27/2017 Active Start: 02-27-2017 Xanax 0.25 MG 1/2 to 1 tablet Orally q8-12 hrs prn Feb, Active take 0.[address] [facility] three times daily as needed for anxiety [...] 1 tablet by mouth once daily Vit X12-Krigtsu Fact-Fa Cmb #2 (Intrinsi B26-Sqhmgh) 500-20-800 mcg-mg-mcg Tablet Discontinued 1 TAB PO [...] 10-21-2023 Chronic Other aftercare (8 sources) Other long term care administrator (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 therapy; Translations: [OTH INTERMEDIATE CURRENT DRUG THERAPY] Onset: 12-12-19 Resolved : [...] for choosing us for your care. Normal [facility] Basophil percentageon 2023 Basophil percentage 99 ug/dL 80-155 [facility] Comment on above: This test was leah green, and its performance characteristics determined by the [facility] Department of Pathology and Laboratory Medicine. It has not been cleared or approved by the FDA. The [facility] Department of Pathology and Laboratory Medicine is regulated under CLIA as qualified to perform high-complexity testing. This test is used for clinical purposes. It should not be regarded as investigational or for research. CELIAC SCREENon 03-23-2024 GLIAD DEAMIDATED IGA QUAL Negative Normal Negative, Test not Indicated [facility] Comment on above: Order Comment: Speci men Type: BLOOD SPECIMEN Ordering Facility: [facility] Address: [address] [place], [place] [address] [address] Result Comment: This is used as an aid in diagnosis of celiac disease. Clinical correlation is required. The following results were obtained with an BringMe[employer] QUANTA Lite Gliadin IgA ANGELA Gliadin. Gliadin IgA values obtained with different manufacturers' assay methods may not be used interchangeably. The magnitude of the reported IgA levels cannot be correlated to an endpoint titer. Performed By: #### C OPPER, 0632-8 #### [facility] CLIA [id number] [address] [place] [address] [place] Gliadin peptide IgA Qn (S) 4 Units Normal <20 [facility] Comment on above: Order Comment: Speci men Type: BLOOD SPECIMEN Ordering Facility: [facility] Address: [address] [place] [address] Performed By: #### Chelsea HAIR, 5763-8 #### [facility] CLIA [id number] [address] [place] [address] [place] INTERPRETATION No serological evidence of celiac disease, however, if celiac disease is clinically suspected and patient is not on gluten-free diet, histological diagnosis may be considered. HLA testing may help with risk assessment. Normal [facility] Comment on above: Order Comment: Speci men Type: BLOOD SPECIMEN Ordering Facility: [facility] Address: [address] [place] [address] Performed By: #### Chelsea HAIR, 5763-8 #### [facility] CLIA [id number] [address] [place] [address] [place] TRANSGLUTAMINASE IGA ABS INTERPRETATION Negative Normal Negative [facility] Comment on above: Order Comment: Speci men Type: BLOOD SPECIMEN Ordering Facility: [facility] Address: [address] [place] [address] Result Comment: The following results were obtained with [employer] Lite R h-tTG IgA ANGELA.???R h-tTG IgA values obtained with different manufacturers' assay methods may not be used interchangeably. The magnitude of the reported IgA levels cannot be corelated to an endpoint???concentration. This is used as an aid in diagnosis of celiac disease. Clinical correlation is required. Performed By: #### C LAXMI, 5763-8 #### [facility] CLIA [id number] [address] [place] [address] [place] tTG IgA Qn (S) <2 Normal <4 [facility] Comment on above: Order Comment: Speci men Type: BLOOD SPECIMEN Ordering Facility: [facility] Address: [address] [place] [address] Performed By: #### C LAXMI, 5763-8 #### [facility] CLIA [id number] [address] [place] [address] [facility] CNOVon 03-23-2024 CNOV Office Visit (NENMMN ) EDNA SULTANA ([id number]) 1965 F Date Time Provider Department 03/23/24 3:00 PM JANNA GILMAN NEMDMN During your visit today, we recorded the [...] which included preparing to see the patient, [id number] patient care, completing clinical documentation, obtaining and/or reviewing separately obtained history, performing a medically appropriate examination, counseling and educating the patient/family/caregiv er, and ordering medications, tests, or procedures. Janna Gilman MD cc: Abiodun Castano [id number] [place] [phone] Edna Sultana [id number] [address] [facility] [address] Referring Provider: ABIODUN CASTANO [2065] Allergies As of Date: 03/23/2024 Noted Allergy Reaction ADHESIVE 05/20/2006 9 - Itching 2 - Rash 7 - Swelling ADHESIVE TAPE-SILICONES 09/06/2020 2 - Rash 4 - Hives FLUOROURACIL-ADHESIVE BANDAGE 12/16/2018 2 - Rash Date Reviewed: 03/23/2024 Reviewed by: Jaci Burton OCCA - (more content not included)... Normal [facility] COPPER BLOODon 03-23-2024 Copper [Mass/Vol] 99 ug/dL Normal 80-155 [facility] Comment on above: Order Comment: Kraig sandoval Type: BLOOD SPECIMEN Ordering Facility: [facility] Address: [address] [place] [address] Result Comment: This test was developed, and its performance characteristics determined by the [facility] Department of Pathology and Laboratory Medicine. It has not been cleared or approved by the FDA. The [facility] Department of Pathology and Laboratory Medicine is regulated under CLIA as qualified to perform high-complexity testing. This test is used for clinical purposes. It should not be regarded as investigational or for research. Performed By: #### C LAXMI, 5763-8 #### [facility] CLIA [id number] [address] [place], [place] [id number] [address] [place] Ceruloplasmin SerPl-mCncon 0 03-23-2024 Ceruloplasmin [Mass/Vol] 26 mg/dL Normal 16-45 [facility] Comment on above: Order Comment: Kraig sandoval Type: BLOOD SPECIMEN Ordering Facility: [facility] Address: [address] [place] [address] Performed By: #### 2 064-4 #### [facility] CLIA [id number] [address] [place] [address] OF [place] IMMUNOFIXATION SCREEN, SERUM on 03-23-2024 MPA RESULT No M protein is identified. Normal No M protein is identified. [facility] Comment on above: Order Comment: Speci men Type: BLOOD SPECIMEN Ordering Facility: [facility] Address: [address] [place] [address] Performed By: #### Chelsea HAIR, 5763-8 #### [facility] CLIA [id number] [address] [place] [address] [place] STAFF REVIEW (MPA) Reviewed by Dr. Ania Melo MD [facility] Comment on above: Order Comment: Speci men Type: BLOOD SPECIMEN Ordering Facility: [facility] Address: [address] [place] [address] Performed By: #### Chelsea HAIR, 5763-8 #### [facility] CLIA [id number] [address] [place] [address] [place] IgA SerPl-mCncon 03-23-2024 IgA [Mass/Vol] 242 mg/dL Normal 70-400 [facility] Comment on above: Order Comment: Speci men Type: BLOOD SPECIMEN Ordering Facility: [facility] Address: [address] [place] [address] Performed By: #### Chelsea HAIR, 5763-8 #### [facility] CLIA [id number] [address] [place], [place] [id number] [place] IgA [Mass/volume] in Serum o r Plasmaon 03-23-2024 IgA [Mass/Vol] 242 mg/dL 70-400 [facility] Immunoglobulin light chains. kappa.free [Mass/volume] in Serumon 03-23-2024 Immunoglobulin light chains.kappa.free (S) [Mass/Vol] 10.8 mg/L 3.3-19.4 [facility] Comment on above: Rarely, increased se rum free light chains levels may not be detected or accurately quantified due to prozone phenomenon or in high viscosity samples using this immunoturbidimetric assay. Correlation with other laboratory results and clinical findings is recommended. The Ricketts Free Light Chain was performed using the Binding Site Optilite immunoturbidimetric method. Result obtained with different assay methods or kits cannot be used interchangeably. Immunoglobulin light chains. kappa.free/Immunoglobulin light chains.lambda.free [Sharon 03-23-2024 Immunoglobulin light chains.kappa.free/Im munoglobulin light chains.lambda.free (S) [Mass ratio] 1.30 0.26-1.65 [facility] Immunoglobulin light chains. lambda.free [Mass/volume] in Serum or Plasmaon 03-23-2024 Immunoglobulin light chains.lambda.free [Mass/Vol] 8.3 mg/L 5.7-26.3 [facility] Comment on above: Rarely, increased se rum [...] chains.kappa.free (S) [Mass/Vol] 10.8 mg/L Normal 3.3-19.4 [facility] Comment on above: Order Comment: Speci men Type: BLOOD SPECIMEN Ordering Facility: [facility] Address: [address] [place] [address] Result Comment: Rare ly, increased serum free light chains levels may not be detected or accurately quantified due to prozone phenomenon or in high viscosity samples using this immunoturbidimetric assay. Correlation with other laboratory results and clinical findings is recommended. The Ricketts Free Light Chain was performed using the Binding Site Optilite immunoturbidimetric method. Result obtained with different assay methods or kits cannot be used interchangeably. Performed By: #### C LAXMI, 5763-8 #### [facility] CLIA [id number] [address] [id number] [address] [place] Immunoglobulin light chains.kappa/Immunog lobulin light chains.lambda (S) [Mass ratio] 1.30 Normal 0.26-1.65 [facility] Comment on above: Order Comment: Speci men Type: BLOOD SPECIMEN Ordering Facility: [facility] Address: [address] [place] [address] Performed By: #### Chelsea HAIR, 5763-8 #### [facility] CLIA [id number] [address] [place] [address] [place] Immunoglobulin light chains.lambda.free [Mass/Vol] 8.3 mg/L Normal 5.7-26.3 [facility] Comment on above: Order Comment: Speci men Type: BLOOD SPECIMEN Ordering Facility: [facility] Address: [address] [place] [address] Result Comment: Rare ly, increased serum free [...] Performed By: #### Chelsea HAIR, 5763-8 #### [facility] CLIA [id number] [address] [place] [address] [place] No Panel Informationon 03-23 Gliadin (Deamidated) IgA Ab Interp Negative Negative, Test not Indicated [facility] Comment on above: This is used as an a id in diagnosis of celiac disease. Clinical correlation is required.The following results were obtained with an [employer] QUANTA Lite Gliadin IgA ANGELA Gliadin. Gliadin IgA values obtained with different manufacturers' assay methods may not be used interchangeably. The magnitude of the reported IgA levels cannot be correlated to an endpoint titer. Miscellaneous Test Comment [facility] Tissue Transglutaminase IgA Interp Negative Negative [facility] Comment on above: The following result s [...] zinc measurementon Zinc [Mass/Vol] 72 ug/dL 60-120 [facility] Comment on above: This test was develo ped, and its performance characteristics determined by the [facility] Department of Pathology and Laboratory Medicine. It has not been cleared or approved by the FDA. The [facility] Department of Pathology and Laboratory Medicine is regulated under CLIA as qualified to perform high-complexity testing. This test is used for clinical purposes. It should not be regarded as investigational or for research. Serum gliadin peptide IgA an tibody assay (units/volume)on 03-23-2024 Gliadin peptide IgA Qn (S) 4 Units <20 [facility] Serum or plasma ceruloplasmi n measurement (mass/volume)on 03-23-2024 Ceruloplasmin [Mass/Vol] 26 mg/dL 16-45 [facility] Serum tissue transglutaminas e (tTG) IgA antibody assay (units/volume)on 03-23-2024 tTG IgA Qn (S) <2 U/mL <4 [facility] Zinc SerPl-mCncon 03-23-2024 Zinc [Mass/Vol] 72 ug/dL Normal 60-120 [facility] Comment on above: Order Comment: Speci men Type: BLOOD SPECIMEN Ordering Facility: [facility] Address: [address] [place] [address] Result Comment: This test was developed, and its performance characteristics determined by the [facility] Department of Pathology and Laboratory Medicine. It has not been cleared or approved by the FDA. The [facility] Department of Pathology and Laboratory Medicine is regulated under CLIA as qualified to perform high-complexity testing. This test is used for clinical purposes. It should not be regarded as investigational or for research. Performed By: #### C LAXMI, 5763-8 #### [facility] CLIA [id number] [address] [place], [place] [address] [place] [address] [place] MAMM SCREENING BILATERAL W C [facility] 01-07-2024 MAMM SCREENING BILATERAL W CAD MAMM [...] 01/07/2024 2:10 PM Cosme CONDE BR IMG [facility] CNOVon 12-12-2023 CNOV Office Visit (SPMEST ) EDNA SULTANA ([id number]) 1965 F Date Time Provider Department 12/12/23 [...] pain in (more content not included)... Normal [facility] MR Brain WO and W [...] toxic/metabolic insult is also within the differential. Area Relief Pilot: MICHAEL Transcribe Date/Time: Dec 09 2023 11:06A Dictated by : MARY COWART MD This examination was interpreted and the report reviewed and electronically signed by: MARY COWART MD on Dec 09 2023 11:11AM [facility] DIVISION OF RADIOLOGY * * *Final Report* * * DATE OF EXAM: Dec 09 2023 11:06AM [facility] 0295 - MRI BRAIN WO/W [...] tissues are unremarkable. DIVISION OF RADIOLOGY Provider, [facility] - 12/09/2023 * * *Final Report* * * DATE OF EXAM: Dec 09 2023 11:06AM [facility] 0295 - MRI BRAIN WO/W [...] toxic/metabolic insult is also within the differential. Area Relief Pilot: MICHAEL Transcribe Date/Time: Dec 09 2023 11:06A Dictated by : MARY COWART MD This examination was interpreted and the report reviewed and electronically signed by: MARY COWART MD on Dec 09 2023 11:11AM EST [facility] MR Brain WO and W contrast I VOrdered By: Ccf Provider on 12-09-2023 [facility] MR Cervical spine WO and W c [...] vertebrae with counting from the craniocervical junction. Area Relief Pilot: MICHAEL Transcribe Date/Time: Dec 09 2023 11:12A Dictated by : MARY COWART MD This examination was interpreted and the report reviewed and electronically signed by: MARY COWART MD on Dec 09 2023 11:20AM [facility] DIVISION OF RADIOLOGY * * *Final Report* [...] or foraminal stenosis. DIVISION OF RADIOLOGY Provider, [facility] - 12/09/2023 * * *Final [...] vertebrae with counting from the craniocervical junction. Area Relief Pilot: PSCB Transcribe Date/Time: Dec 09 2023 11:12A Dictated by : MARY COWART MD This examination was interpreted and the report reviewed and electronically signed by: MARY COWART MD on Dec 09 2023 11:20AM EST [facility] MR Cervical spine WO and W chelsea ontrast IVOrdered By: Ccf Provider on 12-09-2023 [facility] MR Thoracic spine WO and W chelsea [...] discrepancies from the craniocervical and lumbosacral junctions. Area Relief Pilot: MICHAEL Transcribe Date/Time: Dec 09 2023 11:20A Dictated by : MARY COWART MD This examination was interpreted and the report reviewed and electronically signed by: MARY COWART MD on Dec 09 2023 11:23AM [facility] DIVISION OF RADIOLOGY * * *Final Report* [...] or foraminal stenosis. DIVISION OF RADIOLOGY Provider, [facility] - 12/09/2023 * * *Final Report* [...] discrepancies from the craniocervical and lumbosacral junctions. Area Relief Pilot: [facility] Transcribe Date/Time: Dec 09 2023 11:20A Dictated by : MARY COWART MD This examination was interpreted and the report reviewed and electronically signed by: MARY COWART MD on Dec 09 2023 11:23AM EST [facility] Radiology Study observation (narrative) [facility] MR Thoracic spine WO and W c ontrast IVOrdered By: Ccf Provider on 12-09-2023 [facility] MRI BRAIN WO/W IVCONon 12-08 MRI BRAIN WO/W IVCON * * *Final Report* * * DATE OF EXAM: Dec 09 2023 11:06AM [facility] 0295 - MRI BRAIN WO/W [...] toxic/metabolic insult is also within the differential. Area Relief Pilot: MICHAEL Transcribe Date/Time: Dec 09 2023 11:06A Dictated by : MARY COWART MD This examination was interpreted and the report reviewed and electronically signed by: MARY COWART MD on Dec 09 2023 11:11AM EST [id number] Normal [facility] MRI CERVICAL SPINE WO/W IVCO [...] vertebrae with counting from the craniocervical junction. Area Relief Pilot: PSCB Transcribe Date/Time: Dec 09 2023 11:12A Dictated by : MARY COWART MD This examination was interpreted and the report reviewed and electronically signed by: MARY COWART MD on Dec 09 2023 11:20AM EST [id number] Normal [facility] MRI THORACIC SPINE WO/W IVCO Non 12-09-2023 MRI THORACIC SPINE WO/W IVCON * * *Final Report* * * DATE OF EXAM: Dec 09 2023 11:06AM [facility] 0326 - MRI THORACIC SPINE [...] discrepancies from the craniocervical and lumbosacral junctions. Area Relief Pilot: MICHAEL Transcribe Date/Time: Dec 09 2023 11:20A Dictated by : MARY COWART MD This examination was interpreted and the report reviewed and electronically signed by: MARY COWART MD on Dec 09 2023 11:23AM EST [id number] Normal [facility] No Panel Informationon 12-08 Radiology Study observation (narrative) [facility] Giovanni 11-06-2023 RO Telephone (SPMEST) KAYY,EDNA A ([id number]) 1965 F Date Time Provider Department 11/06/23 [...] Date Provider Department Center 11/06/20232065-ABIODUN CASTANO [facility] Encounter Status:Closed by KIMBERLY HOUSE on 11/06/23 [facility] Giovanni 11-05-2023 CNPN Telephone (SPMEST) EDNA SULTANA ([id number]) 1965 F Date Time Provider Department 11/05/23 [...] recommendation. I will send the patient a [facility] message also so she is aware. Devin [...] Nocturia [R35.1] 09/06/2020 Encounter Status:Closed by ABIODUN CATSANO on 11/06/23 Normal [facility] CNPNon 10-28-2023 CNPN Telephone (SPMEST) EDNA SULTANA ([id number]) 1965 F Date Time Provider Department 10/28/23 [...] Encounter Date Provider Department Center 10/28/20232065-ABIODUN CASTANO [facility] Encounter Status:Closed by KIMBERLY HOUSE on 11/03/23 Normal [facility] Automated epithelial cells c ount in urine sediment (number/area)on 10-25-2023 Epithelial cells Auto (Urine sed) [#/Area] NONE SEEN #/LPF NONE/RARE [facility] Automated leukocytes count i n urine sediment (number/area)on 10-25-2023 WBC Auto (Urine sed) [#/Area] 5-10 #/HPF 0-2 [facility] Automated urine specific gra vity by refractometryon 10-25-2023 Specific gravity Refractometry automated (U) [Rel density] 1.025 1.005-1.025 [facility] Bilirubin Auto test strip (U ) [Mass/Vol]on 10-25-2023 Bilirubin (U) [Mass/Vol] COLOR INTERFERENCE NEGATIVE [facility] Casts typing in urine sedime nt by light microscopyon 10-25-2023 Casts LM Nom (Urine sed) NONE SEEN #/LPF NONE SEEN [facility] Color Auto (U)on 10-25-2023 Color (U) ORANGE YELLOW [facility] Ketones Auto test strip (U) [Mass/Vol]on 10-25-2023 Ketones (U) [Mass/Vol] COLOR INTERFERENCE mg/dL NEGATIVE [facility] Mucus LM Ql (Urine sed)on Mucus Ql (Urine sed) NONE SEEN NONE SEEN [facility] Protein Auto test strip (U) [Mass/Vol]on 10-25-2023 Protein (U) [Mass/Vol] COLOR INTERFERENCE mg/dL NEG/TRACE [facility] Specific gravity Auto test s trip (U) [Rel density]on 10-25-2023 Specific gravity (U) [Rel density] CLEAR CLEAR [facility] Urine bacteria detection by automated methodon 10-25-2023 Bacteria Auto Ql (U) TRACE #/HPF NONE SEEN [facility] Urine glucose measurement by test strip (mass/volume)on 10-25-2023 Glucose Test strip (U) [Mass/Vol] COLOR INTERFERENCE mg/dL NEGATIVE [facility] Urine hemoglobin detection b y automated test stripon 10-25-2023 Hemoglobin Auto test strip Ql (U) COLOR INTERFERENCE NEGATIVE [facility] Urine nitrite detection by a utomated test stripon 10-25-2023 Nitrite Auto test strip Ql (U) COLOR INTERFERENCE NEGATIVE [facility] Urine sediment crystal ident ification by light microscopyon 10-25-2023 Crystals LM Nom (Urine sed) None Seen #/HPF None Seen [facility] Urine sediment leukocyte cou nt by microscopy (number/high power field)on 10-25-2023 WBC LM.HPF (Urine sed) [#/Area] 0-2 #/HPF NONE SEEN [facility] Urobilinogen Auto test strip (U) [Mass/Vol]on 10-25-2023 Urobilinogen (U) [Mass/Vol] COLOR INTERFERENCE EU/dL 0.2-1.0 [facility] pH Auto test strip (U)on pH (U) COLOR INTERFERENCE 5.0-9.0 [facility] CNOVon 10-21-2023 CNOV Office Visit (SPMEST ) EDNA SULTANA ([id number]) 1965 F Date Time Provider Department 10/21/23 8:00 AM ABIODUN CASTANO SPMEST During your visit today, we recorded the following information about you: Respiration Weight Height 12/minute 71.7 kg 1.803 m Abiodun Castano DO 10/27/2023 6:45 PM Signed [facility] Low Back Pain - Chronic (> 12 weeks) Initial Exam SUBJECTIVE HISTORY OF PRESENT ILLNESS: Edna Eddy Sasakwa is a 58 year old female who [...] 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 Normal [facility] Laboratory - Chemistry and C hemistry - challengeon 10-07-2023 Cobalamin (Vitamin B12) [Mass/Vol] 913 pg/mL [facility] Ferritin [Mass/Vol] 87 ng/mL [facility] E2 [Mass/Vol]on 07-02-2023 ESTRADIOL <15.0 Normal [facility] Comment on above: Result Comment: NON- [...] Performed By: #### 2 986-8, 2839-9, THYR, 24402-6, 32768-2, 3-4 #### [facility] ([id number]) [address], [address] [place] [address] Follitropin Qnon 07-02-2023 FOLLICLE STIM HORMONE 54.8 mIU/mL Normal [facility] Comment on above: Result Comment: NORMAL FEMALE Luteal 1.8-5.1 mIU/mL Follicular 3.8-8.8 mIU/mL Mid Cycle 4.5-22.5 mIU/mL Post [facility] 16.7-113.6 mIU/mL Performed By: #### 2 986-8, 2839-9, THYR, 83387-6, 13234-1, 2242-4 #### [facility] ([id number]) [address], [address] [place] [address] Lutropin Qnon 07-02-2023 LUTEINIZING HORMONE 20.5 mIU/mL Normal [facility] Comment on above: Result Comment: NORMAL FEMALE Follicular 2.1-10.9 mIU/mL Mid Cycle 19.2-103 mIU/mL Luteal 1.2-12.9 mIU/mL Post Shawna 10.9-58.6 mIU/mL Performed By: #### 2 986-8, 2839-9, THYR, 60072-5, 60008-7, 3-4 #### [facility] ([id number]) [address], [facility] [address] [place] [address] Progesterone [Mass/Vol]on PROGESTERONE <0.1 Normal [facility] Comment on above: Result Comment: FEMALES: 1st Tri: 4.7-50.7 ng/ml 2nd Tri: 19.4-45.3 ng/ml MENSTRUATING FEMALES: Follicular: 0.3-1.5 ng/ml Mid Luteal: 5.2-18.6 ng/ml Post Shawna: <0.1-0.8 ng/ml Performed By: #### 2 986-8, 2839-9, THYR, 94704-7, 74999-9, 2243-4 #### [facility] ([id number]) [address], [facility] [address] [place] [address] THYROID PROFILEon 07-02-2023 Free T4 [Mass/Vol] 0.78 ng/dL Normal 0.61-1.60 [facility] Comment on above: Performed By: #### 2 986-8, 2839-9, THYR, 19571-0, 04171-8, 2243-4 #### [facility] ([id number]) [address] [facility], [facility] [address] [place] [address] TSH 1.25 uIU/mL Normal 0.49-4.67 [facility] Comment on above: Performed By: #### 2 986-8, 2839-9, THYR, 00582-0, 71475-7, 2243-4 #### [facility] ([id number]) [address], [address] [place] [address] Testosterone [Mass/Vol]on TESTOSTERONE 0.23 ng/mL Normal 0.00-0.70 [facility] Comment on above: Performed By: #### 2 986-8, 2839-9, THYR, 92417-8, 21703-5, 2243-4 #### [facility] ([id number]) [address] [facility], [address] [place] [address] Neurosurgery Office/Clinic N kishor 05-27-2023 Neurosurgery Office/Clinic Note Chief Complaint Back follow up-MRI @ [facility] 03/29 Physical Exam Vitals & Measurements HR: [...] attempted healthier diet from her previously standard Martiniquais diet and noted significant improvement in sense [...] prompted her to visit a neurosurgeon at [facility]. An MRI was ordered and no surgical [...] as A (more content not included)... Normal [facility] MR lumbar spine wo conon MR lumbar spine wo con [facility] Main [place] [address] [place] [address] MRI Report Signed Patient: Edna Sultana MR#: [id number] : 1965 Acct:[id number] Age/Sex: 57 / F ADM Date: 02/27/23 Loc: MR Room: Type: [facility] Attending Dr: Victorina Martinez MD Copies [...] Ashish Alvares M.D.02/27/2023 12:35 PM Dictation Location: [place] [address] Transcribed By: [facility] 02/27/23 1235 Dictated By: Ashish Alvares II, MD 02/27/23 1227 Signed By: 02/27/23 1235 [facility] Urinalysis - AUTOMATEDon Appearance (U) clear [employer] Other Bilirubin Ql (U) Negative [employer] Other Color (U) light yellow [employer] Other Glucose Ql (U) Negative [employer] Other Hemoglobin Ql (U) trace-intact [employer] Other Ketones Ql (U) Negative [employer] Other Leukocyte esterase Test strip Ql (U) Negative [employer] Other Nitrite Ql (U) Negative [employer] Other pH (U) 7.5 [pH] [employer] Other Protein Ql (U) Negative [employer] Other Specific gravity (U) [Rel density] 1.015 [employer] Other Urobilinogen (U) [Mass/Vol] 0.2 mg/dL [employer] Other Urinalysis - AUTOMATED [employer] Other US abdomen limitedon 023 US abdomen limited [facility] Main [place] [address] [place] [address] Ultrasound Report Signed Patient: Edna Sultana MR#: [id number] : 1965 Acct:[id number] Age/Sex: 57 / F ADM Date: 01/02/23 Loc: Room: Type: [facility] Attending Dr: Yannick Velázquez DO Ordering [...] Thomson Jr., Aldair01/02/2023 11:07 AM Dictation Location: [place] [address] Tech: Nuha Fisher Transcribed By: RODERICK 01/02/23 110 Dictated By: Pranay Thomson Jr, DO 01/02/231104 Signed By: 01/02/231106 Normal [facility] US carotid doppler BIon 12-06 US carotid doppler BI [facility] Main [place] [address] [place] [address] Ultrasound Report Signed Patient: Edna Sultana MR#: [id number] : 1965 Acct:[id number] Age/Sex: 57 / F ADM Date: 01/02/23 Loc: Room: Type: [facility] Attending Dr: Yannick Velázquez DO Ordering [...] Lukas Schultz M.D.01/02/2023 4:33 PM Dictation Location: [place] [address] Tech: Nuha Phillip Transcribed By: RODERICK 01/02/23 1633 Dictated By: Lukas Schlutz MD 01/02/23 1632 Signed By: 01/02/23 1633 [facility] MR lumbar spine wo [facility] MR lumbar spine wo [facility] [place] [address] XRay Report Signed Patient: Edna Sultana MR#: [id number] : 1965 Acct:[id number] Age/Sex: 56 / F ADM Date: 08/28/22 Loc: MR Room: Type: [facility] Attending Dr: Yannick Velázquez DO Copies to: Yannick Velázquez DO Ordering Provider: Yannick Velázquez DO Date of Service: 08/28/22 MR/MR lumbar spine wo con: M54.50 M48.0 M51.35 ([id number]) XR/XR pre/post mri xray: PRE MRI OF [...] Poppy [place] M.D.08/28/2022 8:35 PM Dictation Location: [place] [address] Transcribed By: [facility] 08/28/222034 Dictated By: Poppy [place] MD 08/28/222016 Signed By: 08/28/222034 [facility] MR lumbar spine wo con [facility] [employer] [facility] [employer] Other MR lumbar spine wo con [facility] [employer] Other MR lumbar spine wo con [address] [facility] [employer] Other [place] [address] [employer] Other MR lumbar spine wo con XRay Report [employer] Other MR lumbar spine wo con Signed [employer] Other MR lumbar spine wo con Patient: Edna Sultana MR#: [id number] [employer] Other MR lumbar spine wo con 2916 [employer] Other MR lumbar spine wo con : 1965 Acct:[id number] [employer] Other MR lumbar spine wo con Age/Sex: 56 / F ADM Date: 08/28/22 [employer] Other MR lumbar spine wo con Loc: MR Room: Type: [facility] [employer] Other MR lumbar spine wo con Attending Dr: Yannick Velázquez DO [employer] Other MR lumbar spine wo con Copies to: Yannick Velázquez, [employer] Other MR lumbar spine wo con Ordering Provider: Yannick Velázquez DO [employer] Other MR lumbar spine wo con Date of Service: 08/28/22 [employer] Other MR lumbar spine wo con MR/MR lumbar spine wo con: M54.50 M48.0 M51.35 [employer] Other MR lumbar spine wo con ([id number]) XR/XR pre/post mri xray: PRE MRI OF THE LUMBAR [employer] Other MR lumbar spine wo con CLINICAL DATA: Chronic back pain with bilateral toe numbness. No injury. [employer] Other MR lumbar spine wo con PRE-MRI LUMBAR SPINE - 2 views [employer] Other MR lumbar spine wo con COMPARISON: 05/11/2020 [employer] Other MR lumbar spine wo con Standing AP and lateral views were obtained. 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 [employer] Other MR lumbar spine wo con There are no developing fractures. There is still slight retrolisthesis of L2 on L3, L3 on L4 and [employer] Other MR lumbar spine wo con L4 and L5. There is mild disc space narrowing and anterior endplate sclerosis at L2-3. There is [employer] Other MR lumbar spine wo con also some disc space narrowing at L3-4. Mild endplate spurring is seen. There is mid and lower [employer] Other MR lumbar spine wo con lumbar facet hypertrophy. The SI joints are intact. No paraspinal soft tissue abnormalities are [employer] Other MR lumbar spine wo con present. [employer] Other MR lumbar spine wo con XR/XR pre/post mri xray [employer] Other MR lumbar spine wo con IMPRESSION: [employer] Other MR lumbar spine wo con SCOLIOSIS AND DEGENERATIVE CHANGES, SIMILAR TO THE PRIOR. [employer] Other MR lumbar spine wo con MRI LUMBAR SPINE WITHOUT CONTRAST [employer] Other MR lumbar spine wo con Multiecho imaging in the axial and sagittal plane was performed without contrast. [employer] Other MR lumbar spine wo con There is levoscoliotic curvature. There is minimal retrolisthesis of L2 on L3, L3 on L4 and L4 and [employer] Other MR lumbar spine wo con L5. There are no acute compression fractures or marrow edema. There are degenerative endplate [employer] Other MR lumbar spine wo con signal changes, predominantly at L2-3 anteriorly. The conus medullaris terminates at T12-L1. The [employer] Other MR lumbar spine wo con lower imaged cord shows no significant findings. 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 No paraspinal soft tissue abnormalities are noted. [employer] Other MR lumbar spine wo con At T12-L1, there is no disc disease or stenosis. [employer] Other MR lumbar spine wo con At L1-2, there is slight disco-osteophytic bulging with mild thecal sac effacement. There is [employer] Other MR lumbar spine wo con asymmetric facet disease on the left. There is no significant foraminal stenosis. [employer] Other MR lumbar spine wo con At L2-3, there is prominent narrowing of the disc space. Disco-osteophytic bulging is noted. There [employer] Other MR lumbar spine wo con is increased signal at the annulus that may be a tear. There is bilateral facet hypertrophy with [employer] Other MR lumbar spine wo con joint effusion on the left. There is slight thickening of ligamentum flavum. There is continued [employer] Other MR lumbar spine wo con moderate thecal sac effacement. There is mild inferior foraminal encroachment. [employer] Other MR lumbar spine wo con At L3-4, there is narrowing of the disc space. Disco-osteophytic bulging is present. There is [employer] Other MR lumbar spine wo con bilateral facet disease and mild thickening of ligamentum flavum. There is mild to moderate thecal [employer] Other MR lumbar spine wo con sac effacement. There is mild to moderate right and moderate left foraminal impingement. [employer] Other MR lumbar spine wo con At L4-5, there is slight loss of disc height. Annular disc bulging is noted, slightly asymmetric [employer] Other MR lumbar spine wo con from the right parasagittal region extending laterally. There is increased signal at the annulus [employer] Other MR lumbar spine wo con that could be tear. There is bilateral facet hypertrophy and thickening of ligamentum flavum, [employer] Other MR lumbar spine wo con asymmetric on the left. Moderate central stenosis is again seen. There is moderate narrowing of [employer] Other MR lumbar spine wo con the neural foramen bilaterally. [employer] Other MR lumbar spine wo con At the lumbosacral junction, mild annular disc bulging is visualized. There is increased signal at [employer] Other MR lumbar spine wo con the annulus that could be tear. There is bilateral facet disease, greater on the left. There is [employer] Other MR lumbar spine wo con subtle thecal sac effacement. There is moderate neural foraminal narrowing, greater on the left. [employer] Other MR lumbar spine wo con LEVOSCOLIOSIS. [employer] Other MR lumbar spine wo con MULTILEVEL DISCOVERTEBRAL DEGENERATIVE CHANGES WITH ASSOCIATED CENTRAL AND FORAMINAL STENOSIS, [employer] Other MR lumbar spine wo con DESCRIBED. SIMILAR FINDINGS WERE PRESENT AT THE TIME OF THE COMPARISON. [employer] Other MR lumbar spine wo con Impression dictated by: Poppy [place] M.D.08/28/2022 8:35 PM [employer] Other MR lumbar spine wo con Dictation Location: [place] [address] [employer] Other MR lumbar spine wo con Transcribed By: PWS 08/28/222034 [employer] Other MR lumbar spine wo con Dictated By: Poppy [place] MD 08/28/222016 [employer] Other MR lumbar spine wo con Signed By: [employer] Other MR lumbar spine wo con 08/28/222034 [employer] Other XR ABD FLAT_UPon 07-04-2022 XR ABD FLAT_UP EXAMINATION: XR ABD FLAT_UP HISTORY: Slow transit constipation COMPARISON: No relevant comparison available. FINDINGS: BOWEL GAS PATTERN: Non-obstructed. FREE AIR: None. CALCIFICATIONS: None significant. 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 IMPRESSION: Nonobstructive bowel gas pattern with normal amount of stool Electronically authenticated by: YANNICK REA Date: 2022-07-04 07:30 Normal [facility] CULTURE URINEon 07-03-2022 CULTURE URINE Culture Observations : NO GROWTH. Normal [facility] Comment on above: Performed By: #### U RCX #### [facility] [address] [place] [address] Dr. Rene De Jesus UA RANDOMon 07-03-2022 Bilirubin Ql (U) Negative Normal NEGATIVE [facility] Comment on above: Performed By: #### U A #### [facility] [address] [place] [address] Dr. Rene De Jesus Clarity (U) CLEAR Normal CLEAR [facility] Comment on above: Performed By: #### U A #### [facility] [address] [place] [address] Dr. Rene De Jesus Color (U) LT. YELLOW Normal YELLOW [facility] Comment on above: Performed By: #### U A #### [facility] [address] [place] [address] Dr. Rene De Jesus Glucose Ql (U) Negative Normal NEGATIVE [facility] Comment on above: Performed By: #### U A #### [facility] [address] [place] [address] Dr. Rene De Jesus Hemoglobin Ql (U) Negative Normal NEGATIVE [facility] Comment on above: Performed By: #### U A #### [facility] [address] [place] [address] Dr. Rene De Jesus Ketones Ql (U) Negative Normal NEGATIVE [facility] Comment on above: Performed By: #### U A #### [facility] [address] [place] [address] Dr. Rene De Jesus LEUKOCYTES Negative Normal NEGATIVE [facility] Comment on above: Performed By: #### U A #### [facility] [address] [place] [address] Dr. Rene De Jesus Nitrite Ql (U) Negative Normal NEGATIVE [facility] Comment on above: Performed By: #### U A #### [facility] [address] [place] [address] Dr. Rene De Jesus pH (U) 8.0 [pH] Normal 5-9 [facility] Comment on above: Performed By: #### U A #### [facility] [address] [place] [address] Dr. Rene De Jesus SPEC GRAVITY 1.010 Normal 1.005-<=1.02 5 [facility] Comment on above: Performed By: #### U A #### [facility] [address] [place] [address] Dr. Rene De Jesus UA PROTEIN Negative Normal NEGATIVE/ TRACE [facility] Comment on above: Performed By: #### U A #### [facility] [address] [place] [address] Dr. Rene De Jesus Urobilinogen Qn (U) 0.2 {Raman'U}/dL Normal 0.2 - 1. 0 [facility] Comment on above: Performed By: #### U A #### [facility] [address] [place] [address] Dr. Rene De Jesus CBC AUTO DIFFon 03-20-2022 BASO # 0.0 103/ul Normal 0.0-0.1 [facility] Comment on above: Performed By: #### C BC #### [facility] [address] [place] [address] Dr. Rene De Jesus Basophils/100 WBC (Bld) 0.8 % Normal 0.2-2.0 [facility] Comment on above: Performed By: #### C BC #### [facility] [address] [place] [address] Dr. Rene De Jesus EO # 0.1 103/ul Normal 0.0-0.7 [facility] Comment on above: Performed By: #### C BC #### [facility] [address] [place] [address] Dr. Rene De Jesus Eosinophils/100 WBC (Bld) 1.3 % Normal 0.9-7.0 [facility] Comment on above: Performed By: #### C BC #### [facility] [address] [place] [address] Dr. Rene De Jesus Erythrocyte distribution width (RBC) [Ratio] 13.1 % Normal 11.0-15.0 [facility] Comment on above: Performed By: #### C BC #### [facility] [address] [place] [address] Dr. Rene De Jesus Hematocrit (Bld) [Volume fraction] 40.9 % Normal 36.0-48.0 [facility] Comment on above: Performed By: #### C BC #### [facility] [address] [place] [address] Dr. Rene De Jesus Hemoglobin (Bld) [Mass/Vol] 13.2 g/dL Normal 12.0-16.0 [facility] Comment on above: Performed By: #### C BC #### [facility] [address] [place] [address] Dr. Rene De Jesus IG # 0.01 10e3/ul Normal 0.00-0.03 [facility] Comment on above: Performed By: #### C BC #### [facility] [address] [place] [address] Dr. Rene De Jesus IG % 0.2 % Normal 0.0-0.5 [facility] Comment on above: Performed By: #### C BC #### [facility] [address] [place] [address] Dr. Rene De Jesus LYMPH # 2.4 103/ul Normal 1.2-3.8 [facility] Comment on above: Performed By: #### C BC #### [facility] [address] [place] [address] Dr. Rene De Jesus Lymphocytes/100 WBC (Bld) 44.5 % Normal 20.5-60.0 [facility] Comment on above: Performed By: #### C BC #### [facility] [address] [place] [address] Dr. Rene De Jesus MANUAL DIFF REQ NO Normal [facility] Comment on above: Performed By: #### C BC #### [facility] [address] [place] [address] Dr. Rene De Jesus MCH (RBC) [Entitic mass] 29.2 pg Normal 26.7-34.0 [facility] Comment on above: Performed By: #### C BC #### [facility] [address] [place] [address] Dr. Rene De Jesus MCHC (RBC) [Mass/Vol] 32.3 g/dL Normal 29.9-35.2 [facility] Comment on above: Performed By: #### C BC #### [facility] [address] [place] [address] [address] Rene De Jesus MCV (RBC) [Entitic vol] 90.5 fL Normal 81.0-99.0 [facility] Comment on above: Performed By: #### C BC #### [facility] [address] [place] [address] Dr. Rene De Jesus MONO # 0.6 103/ul Normal 0.3-0.8 [facility] Comment on above: Performed By: #### C BC #### [facility] [address] [place] [address] Dr. Rene De Jesus Monocytes/100 WBC (Bld) 12.1 % Critically high 1.7-12.0 [facility] Comment on above: Performed By: #### C BC #### [facility] [address] [place] [address] Dr. Rene De Jesus NEUT # 2.2 103/ul Normal 1.4-6.5 [facility] Comment on above: Performed By: #### C BC #### [facility] [address] [place] [address] Dr. Rene De Jesus Neutrophils/100 WBC (Bld) 41.1 % Critically low 43.0-75.0 [facility] Comment on above: Performed By: #### C BC #### [facility] [address] [place] [address] Dr. Rene De Jesus Platelet mean volume (Bld) [Entitic vol] 10.5 fL Normal 9.5-13.5 [facility] Comment on above: Performed By: #### C BC #### [facility] [address] [place] [address] Dr. Rene De Jesus PLT 263 103/ul Normal 150-450 [facility] Comment on above: Performed By: #### C BC #### [facility] [address] [place] [address] Dr. Rene De Jesus RBC 4.52 106/ul Normal 4.20-5.40 [facility] Comment on above: Performed By: #### C BC #### [facility] [address] [place] [address] Dr. Rene De Jesus WBC 5.3 103/ul Normal 4.0-11.0 [facility] Comment on above: Performed By: #### C BC #### [facility] [address] [place] [address] Dr. Rene De Jesus PROF 14(COMP METB)on 022 Albumin [Mass/Vol] 3.9 g/dL Normal 3.4-5.0 [facility] Comment on above: Performed By: #### T ZEN, CMP #### [facility] [address] [place] [address] Dr. Rene De Jesus Albumin/Globulin [Mass ratio] 1.2 {ratio} Normal [facility] Comment on above: Performed By: #### T SH, CMP #### [facility] [address] [place] [address] Dr. Rene De Jesus ALP [Catalytic activity/Vol] 71 U/L Normal 46-116 [facility] Comment on above: Performed By: #### T SH, CMP #### [facility] [address] [place] [address] Dr. Rene De Jesus ALT [Catalytic activity/Vol] 21 U/L Normal 14-59 [facility] Comment on above: Performed By: #### T ZEN, CMP #### [facility] [address] [place] [address] Dr. Rene De Jesus Anion gap [Moles/Vol] 11.3 mmol/L Normal [facility] Comment on above: Performed By: #### T SH, CMP #### [facility] [address] [place] [address] Dr. Rene De Jesus AST [Catalytic activity/Vol] 15 U/L Normal 15-37 [facility] Comment on above: Performed By: #### T ZEN, CMP #### [facility] [address] [place] [address] Dr. Rene De Jesus Bilirubin [Mass/Vol] 0.3 mg/dL Normal 0.2-1.0 [facility] Comment on above: Performed By: #### T SH, CMP #### [facility] [facility] [address] [place] [address] Dr. Rene De Jesus Calcium [Mass/Vol] 8.9 mg/dL Normal 8.5-10.1 [facility] Comment on above: Performed By: #### T SH, CMP #### [facility] [address] [place] [address] Dr. Rene De Jesus Chloride [Moles/Vol] 102 mmol/L Normal 98-107 [facility] Comment on above: Performed By: #### T SH, CMP #### [facility] [address] [place] [address] Dr. Rene De Jesus CO2 [Moles/Vol] 30.7 mmol/L Normal 21.0-32.0 [facility] Comment on above: Performed By: #### T ZEN, CMP #### [facility] [address] [place] [address] Dr. Rene De Jesus Creatinine [Mass/Vol] 0.69 mg/dL Normal 0.55-1.02 [facility] Comment on above: Performed By: #### T SH, CMP #### [facility] [address] [place] [address] Dr. Rene De Jesus EGFR-AF KENYAN >60 Normal >=60 [facility] Comment on above: Performed By: #### T SH, CMP #### [facility] [address] [place] [address] Dr. Rene De Jesus EGFR-NON AF KENYAN >60 Normal >=60 [facility] Comment on above: Performed By: #### T SH, CMP #### [facility] [address] [place] [address] Dr. Rene De Jesus Globulin (S) [Mass/Vol] 3.3 g/dL Normal [facility] Comment on above: Performed By: #### T SH, CMP #### [facility] [address] [place] [address] Dr. Rene De Jesus Glucose [Mass/Vol] 96 mg/dL Normal 74-106 [facility] Comment on above: Performed By: #### T SH, CMP #### [facility] [address] [place] [address] Dr. Rene De Jesus Potassium [Moles/Vol] 4.0 mmol/L Normal 3.5-5.1 [facility] Comment on above: Performed By: #### T SH, CMP #### [facility] [address] [place] [address] Dr. Rene De Jesus Protein [Mass/Vol] 7.2 g/dL Normal 6.4-8.2 [facility] Comment on above: Performed By: #### T SH, CMP #### [facility] [address] [place] [address] Dr. Rene De Jesus Sodium [Moles/Vol] 140 mmol/L Normal 136-145 [facility] Comment on above: Performed By: #### T SH, CMP #### [facility] [address] [place] [address] Dr. Rene De Jesus Urea nitrogen [Mass/Vol] 18.0 mg/dL Normal 7.0-18.0 [facility] Comment on above: Performed By: #### T SH, CMP #### [facility] [address] [place] [address] Dr. Rene De Jesus Urea nitrogen/Creatinine [Mass ratio] 26.1 mg/mg Normal [facility] Comment on above: Performed By: #### T ZEN, CMP #### [facility] [address] [place] [address] Dr. Rene De Jesus TSHon 03-20-2022 TSH 2.033 uIU/mL Normal 0.358-3.740 [facility] Comment on above: Performed By: #### T SH, CMP #### [facility] [address] [place] [address] Dr. Rene De Jesus XR foot RT min 3V*on 022 XR foot RT min 3V* [facility] [employer] Other XR foot RT min 3V* [facility] [employer] Other XR foot RT min 3V* [address] [employer] Other XR foot RT min 3V* Harsh [place] [address] [employer] Other XR foot RT min 3V* XRay Report [employer] Other XR foot RT min 3V* Signed [employer] Other XR foot RT min 3V* Patient: Edna Sultana MR#: [id number] [employer] Other XR foot RT min 3V* 2916 [employer] Other XR foot RT min 3V* : 1965 Acct:[id number] [employer] Other XR foot RT min 3V* Age/Sex: 56 / F ADM Date: 01/28/22 [employer] Other XR foot RT min 3V* Loc: XDUCLY Room: Type: [facility] [employer] Other XR foot RT min 3V* Attending Dr: Shara Cutler [facility] [employer] Other XR foot RT min 3V* Copies to: HSARA CUTLER SENIOR IT SPECIALISTStevie [employer] Other XR foot RT min 3V* Ordering Provider: SHARA CUTLER [facility] [employer] Other XR foot RT min 3V* Date of Service: 01/28/22 [employer] Other XR foot RT min 3V* XR/XR foot RT min 3V*: Injury of right foot, initial encounter [employer] Other XR foot RT min 3V* 3 viewsRIGHT foot plain film [employer] Other XR foot RT min 3V* COMPARISON:None [facility] [employer] Other XR foot RT min 3V* HISTORY:RIGHT foot injury. [employer] Other XR foot RT min 3V* No acute fracture, dislocation or focal soft tissue abnormality seen. Chronic deformity of the 5th [employer] Other XR foot RT min 3V* metatarsal identified. [employer] Other XR foot RT min 3V* XR/XR foot RT min 3V* [employer] Other XR foot RT min 3V* IMPRESSION:No acute findings [employer] Other XR foot RT min 3V* Impression dictated by: Lukas Nicole M.D.01/28/2022 3:27 PM [employer] Other XR foot RT min 3V* Dictation Location: [place] [address] [employer] Other XR foot RT min 3V* Transcribed By: PWS 01/28/22 [facility] [employer] Other XR foot RT min 3V* Dictated By: Lukas Nicole DO 01/28/22 [facility] [employer] Other XR foot RT min 3V* Signed By: [employer] Other XR foot RT min 3V* 01/28/[address] [place] [address] ABD/PELVIS WO CONon 08-01 CT [...] MARGO ELLIOTT Date: 2021-08-01 02:33 Normal [facility] ER URINE PROFILEon 2 Bilirubin Ql (U) Negative Normal NEGATIVE [facility] Comment on above: Performed By: #### E RUR #### [facility] [address] [place] [address] Dr. Rene De Jesus Clarity (U) CLEAR Normal CLEAR [facility] Comment on above: Performed By: #### E RUR #### [facility] [address] [place] [address] Dr. Rene De Jesus Color (U) YELLOW Normal YELLOW [facility] Comment on above: Performed By: #### E RUR #### [facility] [address] [place] [address] Dr. Rene SOLOMON A micrscopic examination will be performed if indicated. Normal [facility] Comment on above: Performed By: #### E RUR #### [facility] [address] [place] [address] Dr. Rene De Jesus Glucose Ql (U) Negative Normal NEGATIVE [facility] Comment on above: Performed By: #### E RUR #### [facility] [address] [place] [address] Dr. Rene De Jesus Hemoglobin Ql (U) Negative Normal NEGATIVE [facility] Comment on above: Performed By: #### E RUR #### [facility] [address] [place] [address] Dr. Rene De Jesus Ketones Ql (U) Negative Normal NEGATIVE [facility] Comment on above: Performed By: #### E RUR #### [facility] [address] [place] [address] Dr. Rene De Jesus LEUKOCYTES Negative Normal NEGATIVE [facility] Comment on above: Performed By: #### E RUR #### [facility] [address] [place] [address] Dr. Rene De Jesus Nitrite Ql (U) Negative Normal NEGATIVE [facility] Comment on above: Performed By: #### E RUR #### [facility] [address] [place] [address] Dr. Rene De Jesus pH (U) 7.5 [pH] Normal 5-9 [facility] Comment on above: Performed By: #### E RUR #### [facility] [address] [place] [address] Dr. Rene De Jesus SPEC GRAVITY 1.015 Normal 1.005-<=1.[address] [place] [address] Comment on above: Performed By: #### E RUR #### [facility] [address] [place] [address] Dr. Rene De Jesus UA PROTEIN Negative Normal NEGATIVE/ TRACE [facility] Comment on above: Performed By: #### E RUR #### [facility] [address] [place] [address] Dr. Rene De Jesus UR MICRO IND NOT INDICATED Normal [facility] Comment on above: Performed By: #### E RUR #### [facility] [address] [place] [address] Dr. Rene De Jesus Urobilinogen Qn (U) 0.2 {Raman'U}/dL Normal 0.2 - 1. 0 [facility] Comment on above: Performed By: #### E RUR #### [facility] [address] [place] [address] Dr. Rene De Jesus Otheron 09-06-2020 BILIRUBIN UA (POCT) Negative Negative [facility] CLARITY UA (POCT) Clear [facility] COLOR UA (POCT) Yellow [facility] GLUCOSE UA (POCT) Negative Negative mg/dL [facility] HEMOGLOBIN/BLOOD UA (POCT) Negative Negative [facility] KETONE UA (POCT) Negative Negative mg/dL [facility] LEUKOCYTES UA (POCT) Negative Negative [facility] NITRITE UA (POCT) Negative Negative [facility] PH UA (POCT) 8.5 Abnormal 4.5 - 8.0 [facility] Protein Ql (U) Negative Negative mg/dL [facility] SPECIFIC GRAVITY UA (POCT) 1.020 1.005 - 1.030 [facility] UROBILINOGEN UA (POCT) 0.2 E.U./dL Normal E.U./dL [facility] ANTI-SSAon 01-19-2019 ANTI-SSA <0.2 Normal [facility] Comment on above: Result Comment: REF VALUES < 1.0 = NEGATIVE >=1.0 = POSITIVE Performed By: #### A -SSA #### [facility] [address] [place] [address] ANTI-SSBon 01-19-2019 ANTI-SSB <0.2 Normal [facility] Comment on above: Result Comment: REF VALUES < 1.0 = NEGATIVE >=1.0 = POSITIVE Performed By: #### A -SSB #### [facility] [address] [place] [address] C-REACTIVE PROTEINon 019 CRP [Mass/Vol] 0.13 mg/dL Normal [facility] Comment on above: Result Comment: REF VALUE < 1.00 Performed By: #### C RP #### [facility] [address] [place] [address] SEDIMENTATION RATE, ERYTHROC YTEon 01-19-2019 SEDIMENTATION RATE, ERYTHROCYTE 3 mm/h Normal 0 - 30 [facility] Comment on above: Performed By: #### E SRWS #### [facility] [address] [place] [address] Vital Signs Date Time Vital Sign Value Performing Clinician Facility 04-20-2024 13:18-0400 Blood Pressure Location Florentin NEVILLE [facility] 04-20-2024 13:18-0400 Diastolic blood pressure 106 mm[Hg] Florentin NILL [facility] 04-20-2024 13:18-0400 Heart rate 72 /min Florentin NILL [facility] 04-20-2024 13:18-0400 Respiratory rate 16 /min Florentin WONGL [facility] 04-20-2024 13:18-0400 Systolic blood pressure 144 mm[Hg] Florentin WONGL [facility] 04-15-2024 11:02-0400 Body height 177.8 cm Suzanne Mareln DO Work Phone: [facility] 04-15-2024 11:02-0400 Body mass index (BMI) [Ratio] 22.1 kg/m2 Suzanne Marlen DO Work Phone: [facility] 04-15-2024 11:02-0400 Body weight 69.85 kg Suzanne Marlen DO Work Phone: [facility] 04-15-2024 11:02-0400 Diastolic blood pressure 86 mm[Hg] Suzanne Marlen DO Work Phone: [facility] 04-15-2024 11:02-0400 Heart rate 83 /min Suzanne Marlen DO Work Phone: [facility] 04-15-2024 11:02-0400 SaO2% (BldA) [Mass fraction] 98 % Suzanne Marlen DO Work Phone: [facility] 04-15-2024 11:02-0400 Systolic blood pressure 134 mm[Hg] Suzanne Marlen DO Work Phone: [facility] 03-24-2024 15:02-0400 Body height 177.16 cm [facility] 03-24-2024 15:02-0400 Body mass index (BMI) [Ratio] 22.5 kg/m2 [facility] 03-24-2024 15:02-0400 Body temperature 97.3 [degF] [facility] 03-24-2024 15:02-0400 Body weight 70.76 kg [facility] 03-24-2024 15:02-0400 Diastolic blood pressure 80 mm[Hg] [facility] 03-24-2024 15:02-0400 Heart rate 77 /min [facility] 03-24-2024 15:02-0400 SaO2% (BldA) [Mass fraction] 98 % [facility] 03-24-2024 15:02-0400 Systolic blood pressure 124 mm[Hg] [facility] 03-23-2024 14:54-0400 Body height 180.3 cm Janna Gilman MD Work Phone: [facility] 03-23-2024 14:54-0400 Body mass index (BMI) [Ratio] 21.59 kg/m2 Janna Gilman MD Work Phone: [facility] 03-23-2024 14:54-0400 Body weight 70.2 kg Janna Gilman MD Work Phone: [facility] 03-23-2024 14:54-0400 Diastolic blood pressure 92 mm[Hg] Janna Gilman MD Work Phone: [facility] 03-23-2024 14:54-0400 Heart rate 95 /min Janna Gilman MD Work Phone: [facility] 03-23-2024 14:54-0400 SaO2% (BldA) [Mass fraction] 100 % Janna Gilman MD Work Phone: [facility] 03-23-2024 14:54-0400 Systolic blood pressure 156 mm[Hg] Janna Gilman MD Work Phone: [facility] 12-24-2023 10:31-0400 Body height 177.16 cm [facility] 12-24-2023 10:31-0400 Body mass index (BMI) [Ratio] 21.8 kg/m2 [facility] 12-24-2023 10:31-0400 Body temperature 98.1 [degF] [facility] 12-24-2023 10:31-0400 Body weight 68.49 kg [facility] 12-24-2023 10:31-0400 Diastolic blood pressure 82 mm[Hg] [facility] 12-24-2023 10:31-0400 Heart rate 87 /min [facility] 12-24-2023 10:31-0400 SaO2% (BldA) [Mass fraction] 97 % [facility] 12-24-2023 10:31-0400 Systolic blood pressure 136 mm[Hg] [facility] 12-12-2023 10:35-0400 Body height 180.3 cm Abioduncandi Langleyry DO Work Phone: [facility] 12-12-2023 10:35-0400 Body mass index (BMI) [Ratio] 22.04 kg/m2 Abiodun Eyad DO Work Phone: [facility] 12-12-2023 10:35-0400 Body weight 71.67 kg Abiodun Eyad DO Work Phone: [facility] 12-12-2023 10:35-0400 Respiratory rate 12 /min Abiodun Eyad DO Work Phone: [facility] 10-21-2023 08:07-0400 Body height 180.3 cm Abiodun Eyad DO Work Phone: [facility] 10-21-2023 08:07-0400 Body mass index (BMI) [Ratio] 22.04 kg/m2 Abiodun Eyad DO Work Phone: [facility] 10-21-2023 08:07-0400 Body weight 71.67 kg Abiodun Eyad DO Work Phone: [facility] 10-21-2023 08:07-0400 Respiratory rate 12 /min Abiodun Eyad DO Work Phone: [facility] 09-30-2023 10:22-0400 Body height 179.1 cm [facility] 09-30-2023 10:22-0400 Body mass index (BMI) [Ratio] 22.48 kg/m2 [employer] [facility] 09-30-2023 10:22-040 Body weight 72.12 kg [employer] [facility] 09-30-2023 10:22-0400 Diastolic blood pressure 64 mm[Hg] [employer] [facility] 09-30-2023 10:22-0400 Systolic blood pressure 120 mm[Hg] [employer] [facility] 05-22-2023 11:30-0500 Body height 177.16 cm Yannick Velázquez Other [employer] Other 05-22-2023 11:30-0500 Body mass index (BMI) [Ratio] 22.4 kg/m2 Yannick Velázquez Other [employer] Other 05-22-2023 11:30-0500 Body temperature 98.5 [degF] Yannick Velázquez Other [employer] Other 05-22-2023 11:30-0500 Body weight 70.31 kg Yannick Velázquez Other [employer] Other 05-22-2023 11:30-0500 Diastolic blood pressure 88 mm[Hg] Yannick Velázquez Other [employer] Other 05-22-2023 11:30-0500 Respiratory rate 18 /min Yannick Velázquez Other [employer] Other 05-22-2023 11:30-0500 SaO2% (BldA) [Mass fraction] 98 % Yannick Velázquez Other [employer] Other 05-22-2023 11:30-0500 Systolic blood pressure 138 mm[Hg] Yannick Velázquez Other [employer] Other 03-19-2023 15:20-0400 Body height 177.16 cm Victorina Blades Other [employer] Other 03-19-2023 15:20-0400 Body mass index (BMI) [Ratio] 23.26 kg/m2 Victorina Blades Other [employer] Other 03-19-2023 15:20-0400 Body weight 73.03 kg Victorina Blades Other [employer] Other 03-19-2023 15:20-0400 Diastolic blood pressure 84 mm[Hg] Victorina Blades Other [employer] Other 03-19-2023 15:20-0400 Systolic blood pressure 130 mm[Hg] Victorina Blades Other [employer] Other 02-23-2023 13:27-0400 Body height 177.8 cm DO Yannick Velázquez Work Phone: [facility] 02-23-2023 13:27-0400 Body temperature 99 [degF] DO Yannick Velázquez Work Phone: [facility] 02-23-2023 13:27-0400 Body weight 72.05 kg DO Yannick Velázquez Work Phone: [facility] 02-23-2023 13:27-0400 Diastolic blood pressure 95 mm[Hg] DO Yannick Velázquez Work Phone: [facility] 02-23-2023 13:27-0400 Heart rate 101 /min DO Yannick Velázquez Work Phone: [facility] 02-23-2023 13:27-0400 Respiratory rate 18 /min DO Yannick Velázquez Work Phone: [facility] 02-23-2023 13:27-0400 SaO2% (BldA) [Mass fraction] 98 % DO Yannick Velázquez Work Phone: [facility] 02-23-2023 13:27-0400 Systolic blood pressure 152 mm[Hg] DO Yannick Velázquez Work Phone: [facility] 02-12-2023 10:00-0400 Body height 177.16 cm Victorina Blades Other [employer] Other 02-12-2023 10:00-0400 Body mass index (BMI) [Ratio] 23.41 kg/m2 Victorina Blades Other [employer] Other 02-12-2023 10:00-0400 Body weight 73.48 kg Victorina Blades Other [employer] Other 02-12-2023 10:00-0400 Diastolic blood pressure 82 mm[Hg] Victorina Blades Other [employer] Other 02-12-2023 10:00-0400 Systolic blood pressure 120 mm[Hg] Victorina Blades Other [employer] Other 01-21-2023 09:10-0400 Body height 177.16 cm Tonia Sandoval Other [employer] Other 01-21-2023 09:10-0400 Body mass index (BMI) [Ratio] 23.84 kg/m2 Tonia Jaime Other [employer] Other 01-21-2023 09:10-0400 Body temperature 97.6 [degF] Tonia Sandoval Other [employer] Other 01-21-2023 09:10-0400 Body weight 74.84 kg Tonia Jaime Other [employer] Other 01-21-2023 09:10-0400 Diastolic blood pressure 88 mm[Hg] Tonia Sandoval Other [employer] Other 01-21-2023 09:10-0400 Respiratory rate 18 /min Tonia Sandoval Other [employer] Other 01-21-2023 09:10-0400 SaO2% (BldA) [Mass fraction] 99 % Tonia Sandoval Other [employer] Other 01-21-2023 09:10-0400 Systolic blood pressure 125 mm[Hg] Tonia Sandoval Other [employer] Other 12-20-2022 08:10-0400 Body height 177.16 cm Yannick Velázquez Other [employer] Other 12-20-2022 08:10-0400 Body mass index (BMI) [Ratio] 23.55 kg/m2 Yannick Velázquez Other [employer] Other 12-20-2022 08:10-0400 Body temperature 98.6 [degF] Yannick Velázquez Other [employer] Other 12-20-2022 08:10-0400 Body weight 73.94 kg Yannick Velázquez Other [employer] Other 12-20-2022 08:10-0400 Diastolic blood pressure 70 mm[Hg] Yannick Velázquez Other [employer] Other 12-20-2022 08:10-0400 Respiratory rate 20 /min Yannick Velázquez Other [employer] Other 12-20-2022 08:10-0400 SaO2% (BldA) [Mass fraction] 97 % Yannick Velázquez Other [employer] Other 12-20-2022 08:10-0400 Systolic blood pressure 110 mm[Hg] Yannick Velázquez Other [employer] Other 07-19-2022 13:30-0500 Body height 177.16 cm Yannick Velázquez Other [employer] Other 07-19-2022 13:30-0500 Body mass index (BMI) [Ratio] 24.2 kg/m2 Yannick Velázquez Other [employer] Other 07-19-2022 13:30-0500 Body temperature 97.8 [degF] Yannick Velázquez Other [employer] Other 07-19-2022 13:30-0500 Body weight 75.98 kg Yannick Velázquez Other [employer] Other 07-19-2022 13:30-0500 Diastolic blood pressure 82 mm[Hg] Yannick Velázquez Other [employer] Other 07-19-2022 13:30-0500 Respiratory rate 18 /min Yannick Velázquez Other [employer] Other 07-19-2022 13:30-0500 SaO2% (BldA) [Mass fraction] 97 % Yannick Velázquez Other [employer] Other 07-19-2022 13:30-0500 Systolic blood pressure 116 mm[Hg] Yannick Velázquez Other [employer] Other 06-24-2022 15:40-0500 Body height 177.16 cm Yannick Velázquez Other [employer] Other 01-28-2022 14:45-0400 Body height 177.16 cm Shara Cutler Other [employer] Other 01-28-2022 14:45-0400 Body mass index (BMI) [Ratio] 24.71 kg/m2 Shara Cutler Other [employer] Other 01-28-2022 14:45-0400 Body temperature 98.5 [degF] Shara Cutler Other [employer] Other 01-28-2022 14:45-0400 Body weight 77.57 kg Shara Cutler Other [employer] Other 01-28-2022 14:45-0400 Diastolic blood pressure 79 mm[Hg] Shara Cutler Other [employer] Other 01-28-2022 14:45-0400 Respiratory rate 18 /min Shara Cutler Other [employer] Other 01-28-2022 14:45-0400 SaO2% (BldA) [Mass fraction] 99 % Shara Cutler Other [employer] Other 01-28-2022 14:45-0400 Systolic blood pressure 111 mm[Hg] Shara Cutler Other [employer] Other 01-09-2022 15:20-0400 Body height 177.16 cm Yannick Velázquez Other [employer] Other 01-09-2022 15:20-0400 Body mass index (BMI) [Ratio] 25 kg/m2 Yannick Velázquez Other [employer] Other 01-09-2022 15:20-0400 Body temperature 98.1 [degF] Yannick Gisel Other [employer] Other 01-09-2022 15:20-0400 Body weight 78.47 kg Yannick Johnnakaren Other [employer] Other 01-09-2022 15:20-0400 Diastolic blood pressure 76 mm[Hg] Yannick Johnnakaren Other [employer] Other 01-09-2022 15:20-0400 Respiratory rate 18 /min Yannick Velázquez Other [employer] Other 01-09-2022 15:20-0400 SaO2% (BldA) [Mass fraction] 97 % Yannick Johnnakaren Other [employer] Other 01-09-2022 15:20-0400 Systolic blood pressure 120 mm[Hg] Yannick Velázquez Other [employer] Other 09-10-2021 12:10-0500 Body height 177.16 cm Yannick Johnnakaren Other [employer] Other 09-10-2021 12:10-0500 Body mass index (BMI) [Ratio] 24.42 kg/m2 Yannick Johnnakaren Other [employer] Other 09-10-2021 12:10-0500 Body temperature 97.9 [degF] Yannick Velázquez Other [employer] Other 09-10-2021 12:10-0500 Body weight 76.66 kg Yannick Velázquez Other [employer] Other 09-10-2021 12:10-0500 Diastolic blood pressure 80 mm[Hg] Yannick Gisel Other [employer] Other 09-10-2021 12:10-0500 Respiratory rate 16 /min Yannick Velázquez Other [employer] Other 09-10-2021 12:10-0500 SaO2% (BldA) [Mass fraction] 97 % Yannick Velázquez Other [employer] Other 09-10-2021 12:10-0500 Systolic blood pressure 118 mm[Hg] Yannick Johnnakaren Other [employer] Other 06-11-2021 12:10-0500 Body height 177.16 cm Yannick Johnnakaren Other [employer] Other 06-11-2021 12:10-0500 Body mass index (BMI) [Ratio] 23.34 kg/m2 Yannick Velázquez Other [employer] Other 06-11-2021 12:10-0500 Body temperature 97.6 [degF] Yannick Velázquez Other [employer] Other 06-11-2021 12:10-0500 Body weight 73.26 kg Yannick Velázquez Other [employer] Other 06-11-2021 12:10-0500 Diastolic blood pressure 88 mm[Hg] Yannick Gisel Other [employer] Other 06-11-2021 12:10-0500 Respiratory rate 18 /min Yannick Oropezakaren Other [employer] Other 06-11-2021 12:10-0500 SaO2% (BldA) [Mass fraction] 99 % Yannick Velázquez Other [employer] Other 06-11-2021 12:10-0500 Systolic blood pressure 122 mm[Hg] Yannick Velázquez Other [employer] Other 09-06-2020 13:39-0500 Body weight 70.76 kg [facility] 09-06-2020 13:39-0500 Height 180.3 cm [facility] Encounters Encounter Date Encounter Type Care Provider Facility Start: 05-04-2024 End: 05-06-2024 Get Medical Advice Janna Gilman MD Work Phone: Neurology Comment on above: Order for MRI Start: 04-20-2024 End: 04-20-2024 ambulatory Yannick Velázquez Facility: [place] Start: 04-20-2024 End: 04-20-2024 Patient encounter procedure Florentin NEVILLE [facility] Start: 04-15-2024 End: 04-15-2024 Bamboo flowsheet Suzanne Marlen DO Work Phone: [facility] Start: 04-15-2024 End: 04-15-2024 Bamboo flowsheet Suzanne Marlen DO Work Phone: [facility] Start: 04-15-2024 End: 04-15-2024 Office outpatient visit 25 minutes Suzanne Marlen DO Work Phone: [facility] Comment on above: AB (obstructive sle ep apnea) (Primary Dx); Hypersomnia; Sleep disturbance; Catathrenia; Sleep talking Start: 04-15-2024 End: 04-15-2024 ambulatory SUZANNE GEE Not Available Start: 03-25-2024 ambulatory Yannick Velázquez Facility:[facility] Start: 03-24-2024 End: 03-24-2024 ambulatory [facility] Work Phone: Start: 03-24-2024 End: 03-24-2024 Patient encounter procedure [facility] Work Phone: Start: 03-23-2024 Non-patient / Non-visit [facility] Work Phone: Start: 03-23-2024 End: [...] Not Available Start: 01-07-2024 End: 01-07-[facility] Start: 12-24-2023 End: 12-24-2023 ambulatory [facility] Work Phone: Start: 12-24-2023 End: 12-24-2023 Patient encounter procedure [facility] Work Phone: Start: 12-12-2023 End: 12-12-2023 ambulatory ABIODUN CASTANO Facility:[facility] Start: 12-12-2023 End: 12-12-2023 Patient encounter procedure Abiodun Castano DO Work Phone: [facility] Comment on above: Fasciculation (Prima ry Dx); Hyperreflexia; Degeneration of lumbar or lumbosacral intervertebral disc Start: 12-09-2023 End: 12-09-2023 ambulatory Abiodun Castano DO Work Phone: [facility] Comment on above: MRI brain cervical t horacic Start: 12-09-2023 E-mail encounter fro m caregiver Abiodun Castano DO Work Phone: [facility] Start: 12-09-2023 End: 12-09-2023 Subsequent hospital visit by physician [facility] Cookie (1.5t) Work Phone: Radiology Comment on above: 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 ] Start: 11-12-2023 Non-patient / Non-visit [facility] [place] Work Phone: Start: 11-10-2023 End: 11-10-2023 ambulatory [facility] Work Phone: Start: 11-10-2023 End: 11-10-2023 Patient encounter procedure [facility] [place] Work Phone: Start: 11-06-2023 Telephone encounter Abiodun calabrese DO Work Phone: [facility] Comment on above: MRI Appointment Start: 11-05-2023 Telephone encounter Abiodun calabrese DO Work Phone: [facility] Start: 10-28-2023 Telephone encounter Abiodun calabrese DO Work Phone: [facility] Comment on above: MRI Appointment; Fol low Up Start: 10-25-2023 Non-patient / Non-visit [facility] Work Phone: Start: 10-23-2023 ambulatory Abiodun rios DO Work Phone: [facility] Start: 10-23-2023 Patient encounter procedure Abiodun Castano DO Work Phone: [facility] Comment on above: Today's Appointment Start: 10-21-2023 End: 10-21-2023 ambulatory ABIODUN CASTAON Facility:[facility] Start: 10-21-2023 End: 10-21-2023 Patient encounter procedure Abiodun Castano DO Work Phone: [facility] Comment on above: Lumbar radiculopathy (Primary Dx); Hyperreflexia; Cardiac murmur; Fasciculation; Neuromuscular scoliosis of thoracic region; Chiari I malformation (HCC); Spinal stenosis of cervical region; Syringomyelia and syringobulbia (HCC); Demyelinating disease of central nervous system (HCC) Start: 10-07-2023 Non-patient / Non-visit [facility] Work Phone: Start: 09-30-2023 End: 09-30-2023 ambulatory YANNICK VELÁZQUEZ [facility] Start: 09-30-2023 End: 09-30-2023 Office outpatient visit 15 minutes 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 - [place] Comment on above: PMB (postmenopausal bleeding) (Primary Dx); Vaginal atrophy Start: 09-24-2023 Non-patient / Non-visit [facility] [employer] Work Phone: Start: 09-17-2023 End: 09-17-2023 ambulatory [facility] Work Phone: Start: 09-17-2023 End: 09-17-2023 Patient encounter procedure [facility] Work Phone: Start: 07-30-2023 End: 07-30-2023 ambulatory REZA H SHERIF Not Available Start: 07-02-2023 End: 07-02-2023 ambulatory AKBAR [facility] Start: 06-17-2023 End: 06-17-2023 ambulatory Yannick Velázquez Other [employer] Other Start: 06-17-2023 Office outpatient vi sit 15 minutes Yannick Velázquez [facility] Start: 05-27-2023 End: 05-28-2023 ambulatory Yannick Velázquez DO Facility:[facility] Start: 05-23-2023 End: 05-23-2023 ambulatory Yannick Velázquez Other [employer] Other Start: 05-23-2023 Telephone encounter Yannick Velázquez [facility] Start: 05-22-2023 End: 05-22-2023 ambulatory Yannick Velázquez Other [employer] Other Start: 05-22-2023 Office outpatient vi sit 25 minutes Yannick Velázquez [facility] [place] Start: 04-29-2023 End: 04-29-2023 ambulatory Yannick Velázquez Other [employer] Other Start: 04-29-2023 Telephone encounter [facility] Start: 04-16-2023 End: 04-16-2023 ambulatory Yannick Velázquez Other [employer] Other Start: 04-16-2023 [facility] Start: 04-15-2023 End: 04-15-2023 ambulatory Yannick Velázquez Other [employer] Other Start: 04-15-2023 Telephone encounter [facility] Start: 04-02-2023 End: 04-02-2023 ambulatory Yannick Velázquez Other [employer] Other Start: 04-02-2023 Telephone encounter Yannick Velázquez [facility] [place] Start: 03-19-2023 End: 03-19-2023 ambulatory Victorina Martinez Other [employer] Other Start: 03-19-2023 Office outpatient vi sit 15 minutes Victorina Martinez [facility] Start: 03-13-2023 End: 03-13-2023 ambulatory Yannick Velázquez Other [employer] Other Start: 03-13-2023 Telephone encounter [facility] Start: 03-05-2023 End: 03-05-2023 ambulatory Yannick Velázquez Other [employer] Other Start: 03-05-2023 Telephone encounter [facility] Start: 03-03-2023 End: 03-03-2023 ambulatory Aynnick Gisel Other [employer] Other Start: 03-03-2023 Telephone encounter [facility] Start: 02-27-2023 End: 02-27-2023 ambulatory Yannick Oropezakaren Facility:[facility] Start: 02-27-2023 End: 02-27-2023 ambulatory DO Yannick Velázquez Work Phone: [facility] Work Phone: Start: 02-27-2023 End: 02-27-2023 Patient encounter procedure DO Yannick Velázquez Work Phone: [facility]-MRI [facility] [place] Work Phone: Start: 02-23-2023 End: 02-23-2023 Emergency department patient visit Yannick Velázquez Facility:[facility] Start: 02-23-2023 End: 02-23-2023 Emergency department patient visit DO Yannick Velázquez Work Phone: [facility]-Emergency Room Work Phone: Start: 02-14-2023 End: 02-14-2023 ambulatory Victorina Blades Other [employer] Other Start: 02-14-2023 Telephone encounter Victorina Blades [facility] Start: 02-12-2023 End: 02-12-2023 ambulatory Victorina Blades Other [employer] Other Start: 02-12-2023 Office outpatient vi sit 15 minutes Victorina Blades [facility] Neuro[facility] Start: 02-10-2023 End: 02-10-2023 ambulatory Yannick Velázquez Other [employer] Other Start: 02-10-2023 Telephone encounter Yannick Velázquez [facility] [place] Start: 02-05-2023 End: 02-05-2023 ambulatory Yannick Velázquez Other [employer] Other Start: 02-05-2023 Telephone encounter Yannick Velázquez [facility] [place] Start: 01-21-2023 End: 01-21-2023 ambulatory Tonia Sandoval Other [employer] Other Start: 01-21-2023 Office outpatient vi sit 25 minutes Tonia Sandoval [facility] [place] Start: 01-08-2023 End: 01-08-2023 ambulatory Yannick Velázquez Other [employer] Other Start: 01-08-2023 Telephone encounter Yannick Velázquez [facility] [place] Start: 01-03-2023 End: 01-03-2023 ambulatory Yannick Velázquez Other [employer] Other Start: 01-03-2023 Telephone encounter Yannick Velázquez [facility] [place] Start: 01-02-2023 Telephone encounter Yannick Velázquez [facility] [place] Start: 01-02-2023 End: 01-02-2023 ambulatory Yannick Velázquez Facility:[facility] Start: 01-02-2023 End: 01-02-2023 ambulatory DO Yannick Oropezakaren Work Phone: [facility] Work Phone: Start: 01-02-2023 End: 01-02-2023 Patient encounter procedure DO Yannick Velázquez Work Phone: [facility]-Ultrasound Main [place] Work Phone: Start: 12-20-2022 End: 12-20-2022 ambulatory Yannick Velázquez Other [employer] Other Start: 12-20-2022 Office outpatient vi sit 25 minutes Yannick Velázquez [facility] [place] Start: 09-24-2022 End: 09-24-2022 ambulatory Victorina Martinez Other [employer] Other Start: 09-24-2022 Telephone encounter Victorina Andino [employer] Start: 09-16-2022 End: 09-16-2022 ambulatory Yannick Velázquez Other [employer] Other Start: 09-16-2022 Office outpatient vi sit 10 minutes Yannick Veláqzuez [facility] [place] Start: 09-16-2022 Telephone encounter Yannick Velázquez [facility] [place] Start: 08-29-2022 End: 08-29-2022 ambulatory Yannick Velázquez Other [employer] Other Start: 08-29-2022 Telephone encounter Yannick Velázquez [facility] [place] Start: 08-28-2022 End: 08-28-2022 ambulatory Yannick Velázquez Facility:[facility] Start: 08-28-2022 End: 08-28-2022 ambulatory DO Yannick Velázquez Work Phone: [facility] Work Phone: Start: 08-28-2022 End: 08-28-2022 Patient encounter procedure DO Yannick Velázquez Work Phone: [facility]-MRI [facility] [place] Work Phone: Start: 08-07-2022 End: 08-07-2022 ambulatory Yannick Velázquez Other [employer] Other Start: 08-07-2022 Telephone encounter Yannick Velázquez [facility] [place] Start: 07-24-2022 End: 07-24-2022 ambulatory Yannick Velázquez Other [employer] Other Start: 07-24-2022 Telephone encounter Yannick Velázquez [facility] [place] Start: 07-19-2022 End: 07-19-2022 ambulatory Yannick Velázquez Other [employer] Other Start: 07-19-2022 Office outpatient vi sit 25 minutes Yannick Velázquez [facility] [place] Start: 07-03-2022 End: 07-04-[address] YANNICK VELÁZQUEZ Facility:[facility] Start: 07-03-2022 Telephone encounter Yannick Velázquez [facility] [place] Start: 06-24-2022 End: 06-24-2022 ambulatory Yannick Velázquez Other [employer] Other Start: 06-24-2022 Office outpatient vi sit 15 minutes Yannick Velázquez [facility] [place] Start: 06-24-2022 Telephone encounter Yannick Velázquez [facility] [place] Start: 05-29-2022 End: 05-29-2022 ambulatory Yannick Velázquez Other [employer] Other Start: 05-29-2022 Telephone encounter Yannick Velázquez [facility] [place] Start: 05-09-2022 End: 05-09-2022 ambulatory Yannick Velázquez Other [employer] Other Start: 05-09-2022 Telephone encounter Yannick Velázquez [facility] [place] Start: 04-10-2022 End: 04-10-2022 ambulatory Yannick Velázquez Other [employer] Other Start: 04-10-2022 Office outpatient vi sit 15 minutes Yannick Velázquez [facility] [place] Start: 03-26-2022 End: 03-26-2022 ambulatory Yannick Velázquez Other [employer] Other Start: 03-26-2022 Office outpatient vi sit 15 minutes Yannick Velázquez [facility] [place] Start: 03-20-2022 End: 03-21-[address] YANNICK VELÁZQUEZ Facility:[facility] Start: 02-15-2022 End: 02-15-2022 ambulatory Yannick Velázquez Other [employer] Other Start: 02-15-2022 Telephone encounter Yannick Velázquez [facility] [place] Start: 01-28-2022 End: 01-28-2022 Patient encounter procedure SENIOR IT SPECIALIST-C Shara Cutler Work Phone: [facility] [place] Start: 01-28-2022 End: 01-28-2022 ambulatory Shara He Other [employer] Other Start: 01-28-2022 Office outpatient vi sit 15 minutes Shara He [facility] [place] Start: 01-11-2022 End: 01-11-2022 ambulatory Yannick Velázquez Other [employer] Other Start: 01-11-2022 Telephone encounter Yannick Velázquez [facility] [place] Start: 01-10-2022 End: 01-11-[address] YANNICK VELÁZQUEZ Facility: Start: 01-09-2022 End: 01-09-2022 ambulatory Yannick Velázquez Other [employer] Other Start: 01-09-2022 Office outpatient vi sit 15 minutes Yannick Velázquez [facility] [place] Start: 01-08-2022 End: 01-08-2022 ambulatory Yannick Velázquez Other [employer] Other Start: 01-08-2022 Telephone encounter Yannick Velázquez [facility] [place] Start: 12-24-2021 End: 12-24-2021 ambulatory Yannick Velázquez Other [employer] Other Start: 12-24-2021 Telephone encounter Yannick Velázquez [facility] [place] Start: 12-11-2021 End: 12-11-2021 ambulatory Yannick Velázquez Other [employer] Other Start: 12-11-2021 Office outpatient vi sit 15 minutes Yannick Velázquez [facility] [place] Start: 12-11-2021 Telephone encounter Yannick Velázquez [facility] [place] Start: 09-10-2021 End: 09-10-2021 ambulatory Yannick Velázquez Other [employer] Other Start: 09-10-2021 Office outpatient vi sit 15 minutes Yannick Velázquez [facility] Start: 08-01-2021 End: 08-01-[address] YANNICK VELÁZQUEZ Facility: Start: 06-11-2021 End: 06-11-2021 ambulatory Yannick Velázquez Other [facility] [employer] Other Start: 06-11-2021 Office outpatient vi sit 15 minutes Yannick Velázquez [facility] Start: 09-06-2020 End: 09-06-2020 Patient encounter [...] [Identifier] in Cervix by Cyto stain Pcr Molded Parts Inspector Start: 01-28-2022 X-ray of right foot SENIOR IT SPECIALIST -C Shara Cutler Work Phone: Start: 09-06-2020 [...] Td Vaccines (2 - Td or Tdap) [facility] Start: 12-19-2026 Urine microalbumin profile DTaP,Tdap,Td Vaccine (2 - Td or Tdap) [facility] Start: 05-22-2025 Screening for malign ant neoplasm of cervix Pap Smear [facility] Start: 01-06-2025 Screening for malign ant neoplasm of breast Mammogram Screening [facility] Start: 09-29-2024 Adult BMI Screening Adult BMI Screen ing [facility] Start: 09-29-2024 Tobacco Screening Tobacco Screening [facility] Start: 08-04-2024 End: 08-04-2024 Patient encounter procedure 08/04/2024 3:20 PM EST Office Visit [facility] [address] [facility] [address] [place] [address] Reza Gorman MD [address] [facility] [address] [place] [address] [facility] Start: 05-31-2024 End: 05-31-2024 Patient encounter procedure 05/31/2024 1:40 PM EST Office Visit [facility] [address] [place] [id number] Ivy Garcia, [place] [address] [place], [place] [facility] [address] Start: 05-25-2024 End: 05-25-2024 Patient encounter procedure 05/25/2024 2:30 PM EST Office Visit [facility] [address] [place] [address] [facility] Start: 04-15-2024 End: 04-15-2025 Multiple sleep latency test Multiple sleep latency test Sleep Center Routine Hypersomnia Sleep disturbance [facility] Sleep talking Expected: 04/15/2024 (Approximate), Expires: 04/15/2025 [facility] Comment on above: Expected: 04/15/2024 (Approximate), Expires: 04/15/2025 Start: 04-15-2024 End: 04-15-2025 Polysomnography Polysomnography Sleep Center Routine AB (obstructive sleep apnea) Expected: 04/15/2024 (Approximate), Expires: 04/15/2025 [facility] Work Phone: Comment on above: Expected: 04/15/2024 (Approximate), Expires: 04/15/2025 Start: 04-15-2024 End: 04-15-2024 Patient encounter procedure 04/15/2024 11:00 AM EDT Office Visit [facility] [address] [phone] Suzanne Gee, [address] [place], [place] [id number] Arrived [facility] Comment on above: Arrived Start: 03-24-2024 Patient referral [facility] Work Phone: Start: 03-23-2024 End: 03-23-2024 Patient encounter procedure 03/23/2024 3:00 PM EDT Office Visit Neurology [address] [id number] Janna Gilman MD [address] [place], [place] [id number] CONSULT TO NEUROLOGY Neurology Comment on above: CONSULT TO NEUROLOGY Start: 03-23-2024 End: 06-22-2024 CELIAC SCREEN WITH REFLEX [facility] Work Phone: Comment on above: Expected: 03/23/2024 , Expires: 06/22/2024 Start: 03-23-2024 End: 06-22-2024 Ceruloplasmin [Mass/volume] in Serum or Plasma [facility] Comment on above: Expected: 03/23/2024 , Expires: 06/22/2024 Start: 03-23-2024 End: 06-22-2024 COPPER BLOOD [facility] Comment on above: Expected: 03/23/2024 , Expires: 06/22/2024 Start: 03-23-2024 End: 06-22-2024 IMMUNOFIXATION SCREEN, SERUM [facility] Comment on above: Expected: 03/23/2024 , Expires: 06/22/2024 Start: 03-23-2024 End: 06-22-2024 KAPPA/SORIANO,FREE,SER [facility] Comment on above: Expected: 03/23/2024 , Expires: 06/22/2024 Start: 03-23-2024 End: 06-22-2024 Zinc [Mass/volume] in Serum or Plasma [facility] Comment on above: Expected: 03/23/2024 , Expires: 06/22/2024 Start: 03-07-2024 Covid-19 Vaccine ( season) Covid-19 Vaccine ( season) [facility] Start: 03-07-2024 Covid-19 Vaccine ( season) Covid-19 Vaccine () [facility] Start: 03-07-2024 Influenza vaccination C [facility] Start: 01-05-2024 End: 01-05-2024 Patient encounter procedure 01/05/2024 9:00 AM EDT Appointment [facility] - [facility] [address] [place] [address] [facility] Start: 01-03-2024 Screening for malign ant neoplasm of breast Mammogram Screening [facility] Start: 12-12-2023 End: 12-12-2023 Patient encounter procedure 12/12/2023 10:50 AM EDT Office Visit [facility] [address] [place] [address] [place] [address] [place] [address] mri (3) follow up [facility] Comment on above: mri (3) follow up Start: 12-09-2023 End: 12-09-2023 Patient encounter procedure 12/09/2023 10:40 AM EDT Appointment Radiology [address] [place] [address] 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] Radiology Comment on above: 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 ] Start: 12-09-2023 End: 12-09-2023 Patient encounter procedure Radiology Comment on above: 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 ] Start: 11-25-2023 End: 11-25-2023 Patient encounter procedure 11/25/2023 2:10 PM EDT Office Visit [facility] [address] [place] [address] [place] [address] [place] [address] MRI follow ups [facility] Comment on above: MRI follow ups Start: 11-16-2023 End: 11-16-2023 Patient encounter procedure 11/16/2023 1:20 PM EDT Appointment [facility] [place] [address] [place] [address] 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]; Demyelinating disease of central nervous system (HCC) [G37.9] [facility] MRI Comment on above: 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 ]; Demyelinating disease of central nervous system (HCC) [G37.9] Start: 11-16-2023 End: 11-16-2023 Patient encounter procedure [facility] MRI Comment on above: 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 ]; Demyelinating disease of central nervous system (HCC) [G37.9] Start: 09-30-2023 End: 09-29-2024 US Pelvis transabdominal and transvaginal Ultrasound pelvic with transvaginal Imaging Routine PMB (postmenopausal bleeding) Expected: 09/30/2023, Expires: 09/29/2024 [facility] Work Phone: Comment on above: Expected: 09/30/2023 , Expires: 09/29/2024 Start: 07-07-2023 Behavioral Health Screening Behavioral Health Screening [facility] Start: 03-07-2023 Covid-19 Vaccine ( season) Covid-19 Vaccine ( season) [facility] Start: 03-07-2023 Influenza vaccination Influenza Vacc ine [facility] Start: 03-07-2020 Influenza vaccination INFLUENZA (#1) [facility] Start: 2016 Administration of varicella zoster vaccine Zoster (Shingles) Vaccine (1 of 2) [facility] Start: 2016 Screening for malign ant neoplasm of colon [facility] Start: 2016 SHINGRIX VACCINE (1 of 2) PATEL GRIX VACCINE (1 of 2) [facility] Start: 10-11-2011 DIABETES SCREEN DIABETES SCREEN [facility] Start: 10-11-2011 Diabetes Screening Diabetes Screenin g [facility] Start: 10-11-2011 Lipid panel Lipid Screening [facility] Start: 10-11-2011 LIPID SCREEN LIPID SCREEN [facility] Start: 10-11-2011 Screening for malign ant neoplasm of colon [facility] Start: 2006 Mammography MAMMOGRAM [facility] Start: 1996 HPV TESTING HPV TESTING [facility] Start: 1996 Screening for malign ant neoplasm of cervix HPV Testing [facility] Start: 10-11-1987 PAP TESTING PAP TESTING [facility] Start: 10-11-1987 Screening for malign ant neoplasm of cervix [facility] Start: 1985 Hepatitis B Vaccine (1 of 3 - 19+ 3-dose series) Hepatitis B Vaccine (1 of 3 - 19+ 3-dose series) [facility] Start: 1985 Urine microalbumin profile DTAP,TDAP,TD (1 - Tdap) [facility] Start: 1984 Anxiety Screening Anxiety Screening [facility] Start: 1984 Depression Screening Depression Scre ening [facility] Start: 1984 HEPATITIS C SCREENING HEPATITIS C [facility] Start: 1984 Hepatitis C screening Hepatitis C [facility] Start: 1984 HIV SCREENING HIV SCREENING [facility] Start: 1984 HIV screening HIV Screening [facility] Start: 1978 Adult depression screening assessment DEPRESSION SCREENING [facility] Comprehensive metabo lic 2000 panel - Serum or Plasma [facility] End: 06-05-2025 MR Brain WO and W contrast IV MRI BRAIN WO/W IVCON Radiology Routine Brain cyst 1 Occurrences starting 05/06/2024 until 06/05/2025 [facility] Work Phone: Comment on above: 1 Occurrences starti ng 05/06/2024 until 06/05/2025 End: 11-25-2024 MR Brain WO contrast MRI BRAIN WO IVCON Radiology Routine Hyperreflexia Demyelinating disease of central nervous system (HCC) 1 Occurrences starting 10/27/2023 until 11/25/2024 [facility] Comment on above: 1 Occurrences starti ng 10/27/2023 until 11/25/2024 End: 11-25-2024 MR Cervical spine WO contrast MRI CERVICAL SPINE WO IVCON Radiology Routine Hyperreflexia Neuromuscular scoliosis of thoracic region Chiari I malformation (HCC) Spinal stenosis of cervical region Syringomyelia and syringobulbia (HCC) Demyelinating disease of central nervous system (HCC) 1 Occurrences starting 10/27/2023 until 11/25/2024 [facility] Work Phone: Comment on above: 1 Occurrences starti ng 10/27/2023 until 11/25/2024 End: 11-25-2024 MR Thoracic spine WO contrast MRI THORACIC SPINE WO IVCON Radiology Routine 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) Demyelinating disease of central nervous system (HCC) 1 Occurrences starting 10/27/2023 until 11/25/2024 [facility] Comment on above: 1 Occurrences starti ng 10/27/2023 until 11/25/2024 Patient Education Radiculopathy (DC) [facility] Work Phone: Patient referral [facility] Work Phone: T3 reverse measurement [facility] Immunizations Immunization Date Immunization Notes Care Provider Sindy sorensen 12-19-2016 tetanus toxoid, reduced diphtheria toxoid, and acellular pertussis vaccine, adsorbed Yannick Velázquez Other [facility] NEGATED: Highlighted row has not occurred!06-11-2021 influenza, seasonal, injectable Patient Objection Yannick Velázquze Other [facility] Payers Date Payer Category Payer Self-pay [id number] 2014 Unknown 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 [id number] 2014-Present PPO [id number] 2014 Unknown 1966 Unknown [id number] 2.16.840.1.505286.3.579.2.593 1966 Unknown [id number] 2.16.840.1.766913.3.579.2.593 1966 Unknown [id number] 2.16.840.1.885292.3.579.2.593 1966 Unknown [id number] 2.16.840.1.413449.3.579.2.593 1966 Unknown [id number] 2.16.840.1.947539.3.579.2.196 1966 Unknown [id number] 2.16.840.1.699977.3.579.2.1286 1966 Unknown [id number] 2.16.840.1.011987.3.579.2.1286 1966 Unknown [id number] 2.16.840.1.202139.3.579.2.1286 1966 Unknown [id number] 2.16.840.1.490361.3.579.2.1259 1966 Unknown [id number] 2.16.840.1.070532.3.579.2.1259 1966 Unknown [id number] 2.16.840.1.713471.3.579.2.1259 1966 Unknown [id number] 2.16.840.1.298149.3.579.2.727 1959 Unknown [id number] 2.16.840.1.203911.19 Unknown [id number] 2.16.840.1.594385.3.579.2.531 Unknown [id number] 2.16.840.1.049872.3.579.2.531 Unknown [id number] 2.16.840.1.169502.3.579.2.531 Unknown [id number] 2.16.840.1.325157.3.579.2.531 Social History Date Type Detail Facility Start: 09-06-2020 End: 10-21-2023 Tobacco smoking status NHIS Never smoker [facility] Start: 09-06-2020 End: 10-21-2023 Tobacco use and exposure Never used [facility] Start: 09-06-2020 End: 03-23-2024 Alcohol intake Current drinker of alcohol (finding) [facility] Start: 09-06-2020 End: 12-12-2023 Alcohol intake [facility] Start: 1965 Sex Assigned At Female [facility] Exposure to SARS-CoV -2 (event) Not sure [facility] Start: 07-02-2018 End: 12-12-2023 Sex Assigned At [facility] Frequency of Alcohol Consumption Never [facility] Start: 05-08-2022 Alcohol Comment twice a month [facility] Start: 1965 Sex Assigned At Not on file [facility] Start: 09-06-2020 Gender identity Identifies as female gender (finding) [facility] Start: 09-06-2020 Sexual orientation Heterosexual (finding) [facility] Start: 03-23-2024 Alcohol Comment 1x/week [facility] How often to you hav e a drink containing alcohol? Monthly or less [facility] Start: 02-04-2024 Alcohol Comment Socially [facility] Functional Status Date Assessment Result Facility 04-20-2024 Functional Status N/A [facility] [place] Clinical Notes 06-11-2021 to 04-20-2024 Suzanne Gee, [...] or tenderness. Abdominal US completed 12/2022 at [facility]. History of Present Illness 58 yo female referred for possible lipoma left abdominal wall; abdominal operations significant for and tubal ligation; patient noticed slight lump in area when lying flat; US at [facility] [place] [place] over 1 year ago with fatty tissue [...] disease: Brother. Hypertension: Mother. Multiple myeloma: Father. [facility] Comment on above: Result Comment: Elec tronically Signed By: JAMIN LAZO, Florentin Lozada\Date and Time Signed: 04/20/24 15:21 EDT 04-15-2024 History of Presen t illness Narrative Images from the original note were not included. Chief Complaint Patient presents with Sleeping Problem Subjective Edna Eddy Kayy, 58 y.o., female HPI The patient states that she had a sleep study at [facility] 27 years ago. She was very tired [...] clinic: 2 months documented in this encounter [facility] 03-24-2024 Hospital Discharg e instructions Ambulatory OrdersReferral to General Surgery Time Frame: 03/24/24, Location: [facility] Work Phone: 03-23-2024 Note HNO ID: [id number] Author: JANNA GILMAN MD Service: ? Author [...] which included preparing to see the patient, [id number] patient care, completing clinical documentation, obtaining and/or reviewing separately obtained history, performing a medically appropriate examination, counseling and educating the patient/family/caregiver, and ordering medications, tests, or procedures. Janna Gilman MD cc: Abiodun Castano [id number] [facility] [address] Edna Sultana [id number] [address] [facility] [address] [facility] 03-23-2024 History of Presen t [...] which included preparing to see the patient, [id number] patient care, completing clinical documentation, obtaining and/or reviewing separately obtained history, performing a medically appropriate examination, counseling and educating the patient/family/caregiver, and ordering medications, tests, or procedures. Janna Gilman MD cc: Abiodun Castano [id number] [facility] [address] Edna Tuckerright [phone] [address] [facility] [address] documented in this encounter [facility] 12-12-2023 Note HNO ID: [id number] Author: ABIODUN CASTANO, DO Service: ? Author [...] at this mabel (more content not included)... [facility] 12-12-2023 History of Presen t [...] that escaped review. documented in this encounter [facility] 12-09-2023 History of Presen t illness Narrative [...] PATIENT PRESENTS WITH AN IMPLANTABLE OR ATTACHED MACHINIST WOOD: No ALLERGIES: Reviewed and unchanged CONTRAST ALLERGY: NO. EXAM: MRI - CONTRAST TYPE: GROUP II PERIPHERAL IV DATA: Ambulatory: A peripheral IV was started in the Right antecubital site with a Angio cath: 24 gauge. RADIOLOGY DEPARTMENT: MR; Exam(s) Completed: Head: Multiple Sclerosis Spine: Cervical spine and Thoracic spine SIGNATURE: RT Gadlino(Loli) PATIENT NAME: Edna Sultana DATE: December 09, 2023 TIME: 10:26 AM documented in this encounter [facility] 12-09-2023 Note HNO ID: [id number] Author: SUZANNA GARY RT(R) Service: ? Author [...] PATIENT PRESENTS WITH AN IMPLANTABLE OR ATTACHED MACHINIST WOOD: No ALLERGIES: Reviewed and unchanged CONTRAST ALLERGY: NO. EXAM: MRI - CONTRAST TYPE: GROUP II PERIPHERAL IV DATA: Ambulatory: A peripheral IV was started in the Right antecubital site with a Angio cath: 24 gauge. RADIOLOGY DEPARTMENT: MR; Exam(s) Completed: Head: Multiple Sclerosis Spine: Cervical spine and Thoracic spine SIGNATURE: LISHA Ahmadi) PATIENT NAME: Edna Sultana DATE: December 09, 2023 TIME: 10:26 AM [facility] 11-10-2023 Evaluation note Authored November 10, 2023 11:44a m The above note written by __ _Prabhjot Tafoya____ acting as human recorder, note dictated by Dr. Layne .I performed the above HPI, ROS, and Examination. I formulated and dictated the treatment plan and was present for entire encounter. Yannick Velázquez D.O. [facility] Work Phone: 1(393) 967-486505-02-2024 Telephone encounter Note* Telephone Encounter - Kimberly House MA - 11/06/2023 9:08 AM EDT Scheduled 3 mri's and follow up appointment as requested by Dr. Castano. [facility]05-02-2024 Miscellaneous Notes* Telephone Encounter - Kimberly House MA - 11/06/2023 9:08 AM EDT Scheduled 3 mri's and follow up appointment as requested by Dr. Castano. * Telephone Encounter - Kimberly House MA - 11/06/2023 7:26 AM EDT end [facility] Telephone encounter Note * Telephone Encounter - Kimberly House MA - 11/06/2023 7:26 AM EDT end [facility]05-01-2024 Telephone encounter Note* Telephone Encounter - Abiodun [...] best recommendation. I willsend the patient a [employer] message also so she is aware. Devin please cancel her other MRIs and I have placed new orders. Abiodun Castano DO [facility] Work Phone: [phone] Miscellaneous Notes* Telephone Encounter - Abiodun Castano [...] best recommendation. I willsend the patient a [facility] message also so she is aware. Devin please cancel her other MRIs and I have placed new orders. Abiodun Castano DO documented in [facility]04-[facility]24 Telephone encounter Note * Telephone Encounter - Kimberly Houes MA - 10/28/2023 9:19 AM EDT Left message for patient to return call to schedule mri's and a follow up appointment. [facility]04-23-2024 Miscellaneous Notes* Telephone Encounter - Kimberly House MA - 10/28/2023 9:19 AM EDT Left message for patient to return call to schedule mri's and a follow up appointment. documented in this encounterR[facility]04-18-2024 Miscellaneous Notes* Telephone Encounter - Frannie Hernandez RN - 10/23/2023 11:20 AM EDT KAYLEEN 10/21/23- unsigned note Additional info patient wanted to share documented in this encounterR[facility]04-16-2024 Instructions* Patient Instructions* Abiodun Castano DO - [...] 2023 TIME: 8:41 AM documented in this encounterR[facility]04-16-2024 NoteHNO ID: [id number] Author: ABIODUN CASTANO DO Service: ? 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 and has been undergoing extensive workup of [...] 2023 TIME: 8:41 AM documented in this encounterR[facility]03-26-2024 History of Present illness Narrative* Ledyedie Emanuel, COMPUTATIONAL CHEMIST-CNM - 09/30/2023 10:15 AM EDT Edna Sultana [...] 07/03/2018 Performed by Osmany Dunn MD at [facility] TONSILLECTOMY TUBAL LIGATION FAMILY HX Family [...] MILNER APRN-CNM 09/30/23 1234 [facility]* Author Yannick Velázquez [facility] Authored September 17, 2023 4:4 1pm The above note written by __ _Prabhjot Tafoya____ acting as human recorder, note dictated by Dr. Layne .I performed the above HPI, ROS, and Examination. I formulated and dictated the treatment plan and was present for entire encounter. Yannick Velázquez D.O. [facility] Work Phone: [phone] 501-869112-12-2023 Evaluation note* Encounter Date Diagnosis Assessment Notes [...] 5 MG tablets at a pharmacy in [place] to help her wean off the medication. [...] She voices that she is seeing a roving carrier on 06-19-23 and has an MRI of the right foot. She thinks she may have a neuroma of the right foot because she has a ball on the bottom of her right foot. Jun, Other 10:05 AM - 10:1 7 AM [employer] Other 11-21-2023 Note Yannick Velázquez DO [address], [place] [address] Re: Edna Sultana Date of Visit: 05/27/2023 Dear Yannick Velázquez DO, Let me know if you have any questions or concerns. Sincerely, MARTIN Moreno MD Providers: The following document(s) were included in the letter: May 27, 2023 11:20:24 EST - (05/27/2023) Neurosurgery Office Visit Note [facility]11-16-2023 Evaluation note* Encounter Date Diagnosis Assessment Notes Treatment Notes Treatment Clinical Notes May, Anxiety (ICD-10 - F41.9) When she gets home from work she is restless, does not know what to do with herself. She does not want to cook station. She did increase her Zoloft to 1 [...] a second opinion with a specialist in [place]. She has pressure in her low back and feels as if there is something going on in her low back. May, Tremor (ICD-10 - R25.1) She voices that both of her hands have been shaking. May, Hypocalcemia (ICD-10 - E83.51) I am going to order lab work to rule out any issue with her parathyroid. May, Other mcfp (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 therapy (ICD-10 - Z79.899) May, Weight gain (ICD-10 - R63.5) She has gained six pounds since March (2022). May, Other She has an appointment with Avery her homeopathic doctor who always tells her that her Cortisol level is a mess . [employer] Other 10-24-2023 Evaluation note* Encounter Date Diagnosis Assessment Notes Treatment Notes Treatment Clinical Notes Apr, Anxiety (ICD-10 - F41.9) [employer] Other 2023 Evaluation note* Encounter Date Diagnosis Assessment Notes Treatment Notes Treatment Clinical Notes Apr, Other mcfp (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 therapy (ICD-10 - Z79.899) Apr, Vitamin B12 deficiency (ICD-10 - E53.8) Apr, Muscle cramp (ICD-10 - R25.2) Apr, Paresthesia (ICD-10 - R20.2) Apr, Vitamin D deficiency (ICD-10 - E55.9) Apr, Fatigue (ICD-10 - R53.83) [employer] Other 2023 Evaluation note* Encounter Date Diagnosis Assessment Notes Treatment Notes Treatment Clinical Notes Apr, Vitamin B12 deficiency (ICD-10 - E53.8) Apr, Hypokalemia (ICD-10 - E87.6) [employer] Other 09-27-2023 Evaluation note* Encounter Date Diagnosis Assessment Notes Treatment Notes Treatment Clinical Notes Mar, Anxiety (ICD-10 - F41.9) [employer] Other 09-13-2023 Evaluation note* Encounter Date Diagnosis Assessment Notes Treatment Notes Treatment Clinical Notes Mar, Lumbar pain (ICD-10 - M54.50) [employer] Other 09-13-2023 Evaluation note* Encounter Date Diagnosis [...] not want to use an inversion table. [employer] Other 08-09-2023 Evaluation note* Encounter Date Diagnosis Assessment Notes Treatment Notes Treatment Clinical Notes Feb, Lumbar pain (ICD-10 - M54.50) [employer] Other 08-02-2023 Evaluation note* Encounter Date Diagnosis Assessment Notes Treatment Notes Treatment Clinical Notes Feb, Lumbar pain (ICD-10 - M54.50) [employer] Other 07-18-2023 Evaluation note* Encounter Date Diagnosis [...] understanding and is agreeable to treatment plan. [employer] Other 07-05-2023 Evaluation note* Encounter Date Diagnosis Assessment Notes Treatment Notes Treatment Clinical Notes Jan, Thyroid nodule (ICD-10 - E04.1) [employer] Other 06-30-2023 Evaluation note* Encounter Date Diagnosis Assessment Notes Treatment Notes Treatment Clinical Notes Dec, Thyroid nodule (ICD-10 - E04.1) [employer] Other 06-16-2023 Evaluation note* Encounter Date Diagnosis [...] done when it comes to her town. [employer] Other 03-13-2023 Evaluation note* Encounter Date Diagnosis Assessment Notes Treatment Notes Treatment Clinical Notes Sep, Anxiety (ICD-10 - F41.9) [employer] Other 03-13-2023 Evaluation note* Encounter Date Diagnosis [...] continue with it today. She saw a uro/endoscope technician who referred her to physical therapy for pelvic floor therapy. They are going to see if Dr. Martinez feels her issue may be coming from her back. [employer] Other 02-23-2023 Evaluation note* Encounter Date Diagnosis Assessment Notes Treatment Notes Treatment Clinical Notes Aug, Lumbar degenerative disc disease (ICD-10 - M51.36) [employer] Other 02-01-2023 Evaluation note* Encounter Date Diagnosis Assessment Notes Treatment Notes Treatment Clinical Notes Aug, Spinal stenosis (ICD-10 - M48.00) Aug, DDD (degenerative disc disease), lumbar (ICD-10 - M51.36) Aug, Lumbar pain (ICD-10 - M54.50) [employer] Other 01-13-2023 Evaluation note* Encounter Date Diagnosis [...] symptoms. She did see a surgeon in [place] and he told her that she was [...] noticed it turn flaky. She asked her cigarette catcher who told her she didn't know what [...] (ICD-10 - Z80.41) She will see her endoscope technician next week to discuss a hysterectomy. She would like to have a CA-125 test done. Her grandmother had ovarian cancer. She voices that she would request a total hysterectomy if she is going to have a hysterectomy. 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 This has only happened a few times. She does feel this when she bends backwards on exam today. [employer] Other 12-28-2022 Evaluation note* Encounter Date Diagnosis Assessment Notes Treatment Notes Treatment Clinical Notes Jun, Lumbar pain (ICD-10 - M54.50) Jun, Lumbar degenerative disc disease (ICD-10 - M51.36) She is not having any radicular symptoms and no urinary tract symptoms. She feels that this is may be related to constipation and would like an order sent to [facility] for an x-ray to see how much stool is present. She is going to see Marty Pugh her physical therapist in [place] next week and hopefully this will help. She has responded well in the past to Medrol Dosepak and would like to have this available to take if desired. side effects/risks/benef its of medication reviewed. Jun, Constipation (ICD-10 - K59.00) Jun, Other 09:15 AM - 09:22 AM [employer] Other 12-19-2022 Evaluation note* Encounter Date Diagnosis [...] the medication. 2:50 PM - 2:58 PM [employer] Other 11-03-2022 Evaluation note* Encounter Date Diagnosis Assessment Notes Treatment Notes Treatment Clinical Notes May, Cystitis (ICD-10 - N30.90) [employer] Other 10-05-2022 Evaluation note* Encounter Date Diagnosis [...] likely fighting something viral a month ago. [employer] Other 09-20-2022 Evaluation note* Encounter Date Diagnosis [...] will return to see the neurosurgeon in [place] for her back. Mar, Other She voices that she had lab drawn through her employer to include cholesterol, she will provide the office with a copy of her results. 8:26 AM - 8:40 AM [employer] Other 08-12-2022 Evaluation note* Encounter Date Diagnosis Assessment Notes Treatment Notes Treatment Clinical Notes Feb, Anxiety (ICD-10 - F41.9) [employer] Other 07-25-2022 Evaluation note* Encounter Date Diagnosis [...] we will help you get into specialist. [employer] Other 07-08-2022 NotePROCEDURE: XR KNEE LT 4V [...] Electronically authenticated by: JENNIFER NICOLAS Date: 2022-01-11 12:09[facility]07-08-[facility] Evaluation note* Encounter Date Diagnosis Assessment Notes Treatment Notes Treatment Clinical Notes Jan, Knee pain, left (ICD-10 - M25.562) [employer] Other [id number] Evaluation note* Encounter Date Diagnosis Assessment Notes [...] and is not winded when she runs. [employer] Other 06-07-2022 Evaluation note* Encounter Date Diagnosis Assessment Notes Treatment Notes Treatment Clinical Notes Dec, Anxiety (ICD-10 - F41.9) [employer] Other 06-07-2022 Evaluation note* Encounter Date Diagnosis [...] ts of medication were reviewed. Dec, Other mcfp (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 therapy (ICD-10 - Z79.899) I [...] copy of this once it is done. [employer] Other 03-07-2022 Evaluation note* Encounter Date Diagnosis [...] She is considering seeing a pharmacist from [facility] to discuss a different version of Cyanocobalamin that does not contain cyanide, I did advise her that if she does this they can send us a prescription request to sign. Sep, Other She voices that her hair is falling out from having had COVID-19 but it seems to be slowing down. [employer] Other 12-06-2021 Evaluation note* Encounter Date Diagnosis [...] drinking alot of water and began drinking [place] artichoke and feels her symptoms resolved. [...] to continue with what she is doing. [employer] Other Evaluation + Plan note No data available for this section [facility] Evaluation noteNo InformationNort [employer] Other Evaluation noteNo assessment information available [facility] Work Phone: Evaluation note* Diagnosis PMB (postmenopausal bleeding)- Primary Postmenopausal bleeding Vaginal atrophy Postmenopausal atrophic vaginitis [facility]* Diagnosis Lumbar radiculopathy- Primary [...] nervous system, unspecified [facility] Fasciculation- Primary Abnormal involuntary movements Hyperreflexia Abnormal reflex Degeneration of lumbar or lumbosacral intervertebral disc [facility]* Diagnosis Hyperreflexia Abnormal reflex Syringomyelia and syringobulbia (HCC) Syringomyelia and syringobulbia [facility]* Diagnosis Hyperreflexia Abnormal reflex Demyelinating disease of central nervous system (HCC) Demyelinating disease of central nervous system, unspecified [facility] Diagnosis Hyperreflexia Abnormal reflex Spinal stenosis of cervical region Spinal stenosis in cervical region Demyelinating disease of central nervous system (HCC) Demyelinating disease of central nervous system, unspecified [facility]* Diagnosis Disturbance of skin sensation- Primary Fasciculation Abnormal involuntary movements Hyperreflexia Abnormal reflex [facility]* Diagnosis Onset Date Resolution Status Abnormal finding on MRI of brain acute Anxiety acute Lipoma acute Twitching acute Vitamin B12 deficiency acute [facility] Work Phone: Evaluation note* Diagnosis AB (obstructive sleep apnea)- Primary Obstructive sleep apnea (adult) (pediatric) Hypersomnia Hypersomnia, unspecified Sleep disturbance Unspecified sleep disturbance Catathrenia Sleep talking Other dysfunctions of sleep stages or arousal from sleep documented in this encounter [facility]* Diagnosis Brain cyst- Primary Cerebral cysts documented in this encounter [facility] Narrative - Reported* Type Description Date [...] Disc L4-L5 ; Dr. Cazares Surgical History 2006 Surgical History bilateral tailor bunionectiomy Surgical History Tonsicllectomy Surgical History tubaligation Surgical History laparascopy to check for adhesi ons from Surgical History Cystoscopy and urethral dilatio n - Dr. Zepeda 02-17-2020 Hospitalization History childbirth 2003 200 6 Hospitalization History see above [employer] Other [facility] Narrative - Reported* Type Description Date [...] 2003 200 6 Hospitalization History see above [employer] Other [facility] Narrative - Reported* Type Description Date [...] 2003 200 6 Hospitalization History see above [employer] Other History general Narrative - Reported* Type [...] 2003 200 6 Hospitalization History see above [employer] Other Hospital Discharge instructions No data available for this section [facility] [employer] InstructionsNot on filedocumented in this encounter [facility] note No data available for this section [facility] Reason for referral (narrative)* Diagnostic Procedure Only (Routine) - Closed Specialty Diagnoses / Procedures Referred By Contac t Referred To Contact MR IMAGING Diagnoses Hyperreflexia Syringomyelia and syringobulbia (HCC) Procedures MRI BRAIN WO/W IVCON MRI BRAIN BRAIN STEM W/O W/[place] [address] [place] [address] [facility] [place] [address] Referral ID Status Reason Start Date Expiration Date V isits Requested Visits Authorized [id number] Closed Auto-Generate d Referral 11/06/2023 07/06/2024 1 1 [facility] for referral (narrative)* Diagnostic Procedure Only (Routine) - Closed Specialty Diagnoses / Procedures Referred By Contac t Referred To Contact MR IMAGING Diagnoses Hyperreflexia Demyelinating disease of central nervous system (HCC) Procedures MRI THORACIC SPINE WO/W IVCON MRI SPINAL CANAL THORACIC W/O & [place] [address] [place] [id number] [place] [address] Referral ID Status Reason Start Date Expiration Date V isits Requested Visits Authorized [id number] Closed Auto-Generate d Referral 11/06/2023 07/06/2024 1 1 [facility] for referral (narrative)* Diagnostic Procedure Only (Routine) - Closed Specialty Diagnoses / Procedures Referred By Contac t Referred To Contact MR IMAGING Diagnoses Hyperreflexia Spinal stenosis of cervical region Demyelinating disease of central nervous system (HCC) Procedures MRI CERVICAL SPINE WO/W IVCON MRI SPINAL CANAL CERVICAL W/O & [place] [address] [place] [id number] Mr Imaging [facility]95 Referral ID Status Reason Start Date Expiration Date V isits Requested Visits Authorized [id number] Closed Auto-Generate d Referral 11/06/2023 07/06/2024 1 1 T [facility] for visit Narrativecontinued back pain, discuss multiple issues, see treatment planTilghman viblast Other Reason for visit Narrative* Diagnostic Procedure Only (Routine) - Closed Specialty Diagnoses / Procedures Referred By Contac t Referred To Contact MR IMAGING Diagnoses Hyperreflexia Demyelinating disease of central nervous system (HCC) Procedures MRI THORACIC SPINE WO/W IVCON MRI SPINAL CANAL THORACIC W/O & [place] [address] [place] [address] [place] [address] Referral ID Status Reason Start Date Expiration Date V isits Requested Visits Authorized [id number] Closed Auto-Generate d Referral 11/06/2023 07/06/2024 1 1 [facility] Procedure Only (Routine) - Closed Specialty Diagnoses / Procedures Referred By Ryan alejandro Referred To Contact MR IMAGING Diagnoses Hyperreflexia Spinal stenosis of cervical region Demyelinating disease of central nervous system (HCC) Procedures MRI CERVICAL SPINE WO/W IVCON MRI SPINAL CANAL CERVICAL W/O & [place] [address] [place] [address] [place] [address] Referral ID Status Reason Start Date Expiration Date V isits Requested Visits Authorized [id number] Closed Auto-Generate d Referral 11/06/2023 07/06/2024 1 1 [facility] Summary Purpose Family History Relationship Condition Age [...] Documents on File Type Date Recorded 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 REFERRING M.D.: Yannick Velázquez, DO [address] [place] [address] Consultation requested by Gisel for an opinion [...] bulge. no blood in urine QUESTIONNAIRE: Questionnaire: [facility] Female Pelvic Medicine Base Question Answer [...] STEM W/O W/CONTRAST MATERIAL Janna Gilman MD [address] [place] [address] Mr Imaging [place] [address] Referral ID Status Reason Start Date Expiration Date Visits Requested Visits Authorized [id number] New Request Auto-Generat ed Referral 06/05/2025 1 1 Specialty Diagnoses / Procedures Referred By Contac t Referred To Contact Diagnoses Hypersomnia Sleep disturbance Catathrenia Sleep talking Procedures Multiple sleep latency test Suzanne Gee DO [address] [place] [address] Referral ID Status Reason Start Date Expiration Date V isits Requested Visits Authorized [id number] Pending Review 04/15/2024 10/12/2024 1 1 Specialty Diagnoses / Procedures Referred By Contac t Referred To Contact Diagnoses AB (obstructive sleep apnea) Procedures Polysomnography Suzanne Gee DO [address] [place] [address] Referral ID Status Reason Start Date Expiration Date V isits Requested Visits Authorized [id number] Pending Review 04/15/2024 10/12/2024 1 1 Specialty Diagnoses / Procedures Referred By Contac t Referred To Contact Neurology Diagnoses Fasciculation Hyperreflexia Procedures CONSULT TO NEUROLOGY OFFICE/OUTPATIENT NEW HIGH MDM 60 [place] [address] [place] [id number] Referral ID Status Reason Start Date Expiration Date Visits Requested Visits Authorized [id number] Authorized PCP Requested Referral 12/12/2023 12/11/2024 1 1 Specialty Diagnoses / Procedures Referred By Contac t Referred To Contact MR IMAGING Diagnoses Hyperreflexia Demyelinating disease of central nervous system (HCC) Procedures MRI BRAIN WO IVCON MRI BRAIN BRAIN STEM W/[place] [address] [place] [address] Mr Imaging [facility]95 Referral ID Status Reason Start Date Expiration Date Visits Requested Visits Authorized [id number] Pending Review Auto-Generat ed Referral 10/27/2023 11/25/2024 1 1 Specialty Diagnoses / Procedures Referred By Contac t Referred To Contact MR IMAGING Diagnoses 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) Demyelinating disease of central nervous system (HCC) Procedures MRI THORACIC SPINE WO IVCON MRI SPINAL CANAL THORACIC [place] [address] [place] [address] [place] [address] Referral ID Status Reason Start Date Expiration Date Visits Requested Visits Authorized [id number] Pending Review Auto-Generat ed Referral 10/27/2023 11/25/2024 [...] CANAL CERVICAL [place] [address] [place] [id number] [place] [address] Referral ID Status Reason Start Date Expiration Date Visits Requested Visits Authorized [id number] Pending Review Auto-Generat ed Referral 10/27/2023 11/25/2024 1 1 Reason appt pt needs cons ult to discuss twitching, numbness right foot, neuropathy Diagnosis 1 Twitching (R25.3) Referral Organization [facility] Family Medicin e Alonso Referring Provider First Name Yannick Referring Provider Last Name Gisel Referring Provider Specialty Family Prac loretta Referred Organization [facility] Referred Provider Nathen Hoover Referred Address [address] [place],[address] Referred Provider Specialty Neurology Referral Priority Routine [...] nodule (E04. 1) Referral Organization [facility] Family Medicin edie Gupta Referring Provider First Name Yannick Referring Provider Last Name Gisel Referring Provider Specialty Family Prac loretta Referred Organization [facility] Referred Provider Reza Gorman Referred Address ,[place], [place],[address] Referred Provider Specialty Ear, Nose an d [...] Lumbar degenerative disc disease (M51.36) Referral Organization [facility] Andreas Gupta Referring Provider First Name Yannick Referring Provider Last Name Gisel Referring Provider Specialty Family Bianka burgos Referred Organization [facility] urosurgery Referred Provider Victorina Martinez Referred Address [address] [address] ,[place], [place],[address] Referred Provider Specialty Neurological Surgery Referral Priority Routine Referral Appointment Date 2022-09-18 General Notes Victorina Cassidy 08/29/2022 01:50:55 PM > referral sent p2p. pt understands she will be contacted to schedule this appt. Victorina Cassidy 08/30/2022 10:55:52 AM > appt scheduled on 09/18/22 at 8:20am Additional Source Comments INFORMATION SOURCE (unrecogn ized section and content) DATE CREATED AUTHOR 11/17/2019 [facility] DATE CREATED AUTHOR AUTHOR'S ORGANIZ ATION 07/06/2022 [facility] DATE CREATED AUTHOR AUTHOR'S ORGANIZ ATION 03/08/2023 [facility] DATE CREATED AUTHOR AUTHOR'S ORGANIZ ATION 05/29/2023 [facility] DATE CREATED AUTHOR AUTHOR'S ORGANIZ ATION 10/01/2023 [facility] DATE CREATED AUTHOR AUTHOR'S ORGANIZ ATION 01/08/2024 [facility] DATE CREATED AUTHOR AUTHOR'S ORGANIZ ATION 03/29/2024 [facility] DATE CREATED AUTHOR AUTHOR'S ORGANIZ ATION 04/17/2024 [facility] EPIC DATE CREATED AUTHOR AUTHOR'S ORGANIZ ATION 04/22/2024 Aj Ch[facility] Source Comments (unrecognize d section and content) In the event this informatio n is protected by the Federal Confidentiality of Alcohol and Drug Abuse Patient Records regulations: The Federal rules restrict any use of the information to criminally investigate or prosecute any alcohol or drug abuse patient.[facility] the event this information is protected by the Federal Confidentiality of Alcohol and Drug Abuse Patient Records regulations: The Federal rules restrict any use of the information to criminally investigate or prosecute any alcohol or drug abuse patient.[facility] the event this information is protected by the Federal Confidentiality of Alcohol and Drug Abuse Patient Records regulations: The Federal rules restrict any use of the information to criminally investigate or prosecute any alcohol or drug abuse patient.[facility] the event this information is protected by the Federal Confidentiality of Alcohol and Drug Abuse Patient Records regulations: The Federal rules restrict any use of the information to criminally investigate or prosecute any alcohol or drug abuse patient.[facility] the event this information is protected by the Federal Confidentiality of Alcohol and Drug Abuse Patient Records regulations: The Federal rules restrict any use of the information to criminally investigate or prosecute any alcohol or drug abuse patient.[facility] the event this information is protected by the Federal Confidentiality of Alcohol and Drug Abuse Patient Records regulations: The Federal rules restrict any use of the information to criminally investigate or prosecute any alcohol or drug abuse patient.[facility] the event this information is protected by the Federal Confidentiality of Alcohol and Drug Abuse Patient Records regulations: The Federal rules restrict any use of the information to criminally investigate or prosecute any alcohol or drug abuse patient.[facility] the event this information is protected by the Federal Confidentiality of Alcohol and Drug Abuse Patient Records regulations: The Federal rules restrict any use of the information to criminally investigate or prosecute any alcohol or drug abuse patient.[facility] the event this information is protected by the Federal Confidentiality of Alcohol and Drug Abuse Patient Records regulations: The Federal rules restrict any use of the information to criminally investigate or prosecute any alcohol or drug abuse patient.[facility] Institute[facility] the event this information is protected by the Federal Confidentiality of Alcohol and Drug Abuse Patient Records regulations: The Federal rules restrict any use of the information to criminally investigate or prosecute any alcohol or drug abuse patient.[facility] the event this information is protected by the Federal Confidentiality of Alcohol and Drug Abuse Patient Records regulations: The Federal rules restrict any use of the information to criminally investigate or prosecute any alcohol or drug abuse patient.[facility] Institute[facility] the event this information is protected by the Federal Confidentiality of Alcohol and Drug Abuse Patient Records regulations: The Federal rules restrict any use of the information to criminally investigate or prosecute any alcohol or drug abuse patient.[facility] Institute[facility] the event this information is protected by the Federal Confidentiality of Alcohol and Drug Abuse Patient Records regulations: The Federal rules restrict any use of the information to criminally investigate or prosecute any alcohol or drug abuse patient.[facility] Institute[facility] the event this information is protected by the Federal Confidentiality of Alcohol and Drug Abuse Patient Records regulations: The Federal rules restrict any use of the information to criminally investigate or prosecute any alcohol or drug abuse patient.[facility] Reason for Visit (unrecogniz ed section and [...] STEM W/[place] [address] [place] [address] Mr Imaging [facility]95 Referral ID Status Reason Start Date Expiration Date V isits Requested Visits Authorized [id number] Closed Auto-Generate d Referral 11/06/2023 07/06/2024 1 1 Reason Comments New Patient Consult Specialty Diagnoses / Procedures Referred By Contalex t Referred To Contact Neurology Diagnoses Fasciculation Hyperreflexia Procedures CONSULT TO NEUROLOGY OFFICE/OUTPATIENT NEW HIGH MDM 60 [place] [address] [place] [address] Referral ID Status Reason Start Date Expiration Date V isits Requested Visits Authorized [id number] Closed PCP Requested Referral 12/12/2023 12/11/2024 1 [...] September 17, 2023 End: September 17, 2023 Linux Developer Relationship Specialty Start Date End Date Yannick Velázquez DO [address] [place] [address] PCP - General 06/11/17 Linux Developer Relationship Specialty Start Date End Date Yannick Velázquez DO [address] [place] [address] PCP - General Family Medicine 08/31/20 Yannick Velázquez, DO [address] [place] [address] Referring Family Medicine 08/31/20 Linux Developer Relationship Specialty Start Date End Date Yannick Velázquez DO [address] [place] [address] PCP - General Family Medicine 08/31/20 Yannick Velázquez, DO [address] [place] [address] Referring Family Medicine 08/31/20 Linux Developer Relationship Specialty Start Date End Date Yannick Velázquez DO [address] [place] [address] PCP - General Family Medicine 08/31/20 Yannick Velázquez DO [address] [place] [address] Referring Family Medicine 08/31/20 Linux Developer Relationship Specialty Start Date End Date Yannick Velázquez DO [address] [place] [address] PCP - General Family Medicine 08/31/20 Yannick Velázquez, [address] [place] [address] Referring Family Medicine 08/31/20 Linux Developer Relationship Specialty Start Date End Date Yannick Velázquez DO [address] [place] [address] PCP - General Family Medicine 08/31/20 Yannick Velázquez, [address] [place] [address] Referring Family Medicine 08/31/20 Team Status: Active Member Role Status Dates Yannick Velázquez DO Primary Care Provider Active S tart: September 24, 2023 Prabhjot Tafoya LPN Attending Provider Active St art: September 24, 2023 Linux Developer Relationship Specialty Start Date End Date Yannick Velázquez DO [address] [place] [address] PCP - General Family Medicine 08/31/20 Yannick Velázquez, [address] [place] [address] Referring Family Medicine 08/31/20 Linux Developer Relationship Specialty Start Date End Date Yannick Velázquez DO [address] [place] [address] PCP - General Family Medicine 08/31/20 Yannick Velázquez, DO [address] [place] [address] Referring Family Medicine 08/31/20 Linux Developer Relationship Specialty Start Date End Date Yannick Velázquez, DO [address] [place] [address] PCP - General Family Medicine 08/31/20 Yannick Velázquez, DO [address] [place] [address] Referring Family Medicine 08/31/20 Linux Developer Relationship Specialty Start Date End Date Yannick Velázquez, DO [address] [place] [address] PCP - General Family Medicine 08/31/20 Yannick Velázquez, DO [address] [place] [address] Referring Family Medicine 08/31/20 Linux Developer Relationship Specialty Start Date End Date Yannick Velázquez, DO [address] [place] [address] PCP - General Family Medicine 08/31/20 Yannick Velázquez, DO [address] [place] [address] Referring Family Medicine 08/31/20 Linux Developer Relationship Specialty Start Date End Date Yannick Velázquez, DO [address] [place] [address] PCP - General Family Medicine 08/31/20 Yannick [...] March 24, 2024 End: March 24, 2024 Linux Developer Relationship Specialty Start Date End Date Yannick Velázquez MD [address] [place] [address] PCP - General Family Medicine 01/08/23 Linux Developer Relationship Specialty Start Date End Date Yannick Velázquez MD [address] [place], [place] [id number] PCP - General Family Medicine 01/08/23 Goals [...] BE BASED ON THE PRIMARY CLINICAL RECORDS. [employer] provides no warranty or guarantee of the accuracy or completeness of information in this document.
== END 2024-05-12 20:48 | disposition home or self-care (01) ==
LOC: SLEEP 20:47
PROVIDERS: PCP Psychiatry & Neurology Neurology; Visit Provider Psychiatry & Neurology Neurology
DX: G47.33 Obstructive sleep apnea (adult) (pediatric) (principal); G47.11 Idiopathic hypersomnia with long sleep time
CPT/HCPCS: 95810

== ENCOUNTER 2024-07-21 14:41 | Outpatient (OUT) | payer OTHER, SELFPAY ==
--- NOTE | 2024-07-21 14:43 | US_ITS ---
The [address] [address] Patient Name: BALA SULTANA MRN: [id number] date: 1965 Sex: F Assigned Patient Location: US Current Patient Location: US Accession/Order Number: [id number] Exam Date: 07/21/2024 14:45 Report Date: 07/21/2024 15:43 At the request of: REZA GORMAN Procedure: US thyroid EXAMINATION: US thyroid HISTORY: Thyroid Nodule COMPARISON: No relevant comparison available. TECHNIQUE: Sonographic images of the thyroid gland were obtained. FINDINGS: The right thyroid lobe measures 5.7 x 1.9 x 1.5 cm. Heterogeneous echotexture with 2 focal nodules. The thyroid isthmus measures 1.4 mm, no focal nodule The left thyroid lobe measures 5.8 x 1.8 x 2.0 cm. 4 focal nodules over 5 mm The most suspicious nodule: Right thyroid lobe. 0.7 x 0.6 x 0.5 cm. Solid, hypoechoic, wide, smooth margins, no calcifications US/US thyroid IMPRESSION: Scattered subcentimeter TR 4 nodules TI-RADS: The [employer] TI-RADS committee's white paper recommendations for thyroid lesions classified as TR4 (moderately suspicious) are listed below: > 1.0 cm. Follow-up ultrasound in 1, 2, 3, and 5 years. > 1.5 cm. FNA. J. Am Saul Radiol 2017;14:587-595. Electronically authenticated by: YANNICK REA Date: 07/21/2024 15:43
--- OUTSIDE RECORDS SUMMARY | 2024-07-21 14:59 | XMS_ITS | CCD ---
Author Organization [facility] Care Team Providers Care Financial Analysis Consultant Name Role Phone Yannick Velázquez Primary Care Provider Yannick Velázquez Unavailable Yannick Velázquez Unavailable Shara Cutler Unavailable SELAM Cutler Attending Provider [phone] NO FAMILY, PHYSICIAN Primary Care Provider Unava ilable GISEL, DR LANIER Admitting Unavailable GIRKAREN, DR LANIER Attending Unavailable GIRVIN, DR LANIER Primary Care Unavailable GIRVIN, DR LANIER Consulting Unavailable CARYEBKATHI, DR JENNIFER Ennis Consulting Unavailable GIRVIN, DR [...] Care Provider DO Yannick Velázquez Attending Provider [phone] Tonia Sandoval Unavailable SHER Blandon Emergency Provider MD Victorina Martinez Attending Provider Yannick Velázquez DO Primary Care Unavailab Farrukh Reinoso III, MD Attending U raviailable Yannick Velázquez DO Primary Care Provider [phone] YANNICK VELÁZQUEZ Referring Unavailable YANNICK VELÁZQUEZ Primary Care Unavailable Yannick Velázquez DO Primary Care Provider Yannick Velázquez DO Unavailable [phone] Yannick Velázquez DO Primary Care Provider [phone] ABIODUN CASTANO Referring Unavailable YANNICK VELÁZQUEZ Primary Care Unavailable ABIODUN CASTANO Referring Unavailable YANNICK VELÁZQUEZ Primary Care Unavailable ABIODUN CASTANO Attending Unavailable YANNICK VELÁZQUEZ Primary Care Unavailable JANNA GILMAN H Referring Unavailable YANNICK VELÁZQUEZ Primary Care Unavailable ABIODUN CASTANO Referring Unavailable JANNA GILMAN H Attending Unavailable YANNICK VELÁZQUEZ Primary Care Unavailable ABIODUN CASTANO Attending Unavailable YANNICK VELÁZQUEZ Primary Care Unavailable ABIODUN CASTANO Referring Unavailable YANNICK VELÁZQUEZ Primary Care Unavailable Yannick Velázquez MD Primary Care Provider Yannick Velázquez Referring Unavailable Florentin NEVILLE Attending Unavailable Yannick Velázquez Primary Care Physician AKBAR JACKSON Referring Unavailable YANNICK VELÁZQUEZ Primary Care Unavailable REZA GORMAN Attending Unavailable REZA GORMAN Attending Unavailable SUZANNE GEE Attending Unavailable IVY GARCIA Attending Unavailable AKBAR JACKSON Referring Unavailable YANNICK VELÁZQUEZ Primary Care Unavailable AKBAR JACKSON Attending Unavailable RADHA JACKSONA Referring Unavailable YANNICK VELÁZQUEZ Primary Care Unavailable AKBAR JACKSON Attending Unavailable RADHA JACKSONA Referring Unavailable YANNICK VELÁZQUEZ Primary Care Unavailable KATIA WHITT Attending Unavailable KATIA WHITT Referring Unavailable YANNICK VELÁZQUEZ Primary Care Unavailable YANNICK VELÁZQUEZ Referring Unavailable YANNICK VELÁZQUEZ Primary Care Unavailable KATIA WHITT Attending Unavailable YANNICK VELÁZQUEZ Referring Unavailable YANNICK VELÁZQUEZ Primary Care Unavailable YANNICK VELÁZQUEZ Referring Unavailable YANNICK VELÁZQUEZ Primary Care Unavailable Yannick Velázquez Primary Care Unavailable Ivy Garcia Attending Unavailable Ivy Garcia Admitting Unavailable KROTZER, AKBAR M Referring Unavailable GIRKAREN, YANNICK C Primary Care Unavailable AKBAR JACKSON Referring Unavailable YANNICK VELÁZQUEZ Primary Care Unavailable Allergies Allergy Classification Reported Allergen(s) Allergy Type Date of Onset Reaction(s) Facility (17 sources) Adhesive Tape-Silicones; Translations: [ADHESIVE TAPE-SILICONES] Drug Allergy 09-07-19 21 Juan Mcqueen [facility] (20 sources) Nitrofurantoin; Translations: [Macrobid] Drug Allergy Diarrhea (finding) [facility] (20 sources) steri-strips Propensity to adverse reactions rash [facility] Other (3 sources) Adhesive bandage; Translations: [Adhesive Bandage] Drug allergy (disorder) 12-17-19 19 Eruption of skin (disorder) [facility] (20 sources) NITROFURANTOIN, MACROCRYSTALS / Nitrofurantoin, Monohydrate Drug Allergy diarrhea [facility] Other (1 source) steri stips; Translations: [steri stips] Propensity to adverse reactions (disorder) [facility] (5 sources) Adhesive Tape; Translations: [adhesive tape] Allergy to substance 09-17-[address] [facility] (12 sources) Nitrofurantoin; Translations: [nitrofurantoin] Drug Allergy 09-17-19 [facility] (14 sources) Adhesive agent; Translations: [ADHESIVE] Propensity to adverse reactions to drug 05-20-20 06 Itching, Rash, Swelling [facility] (6 sources) Fluorouracil-Adhe sive Bandage; Translations: [FLUOROURACIL-ADH ESIVE BANDAGE] Drug Allergy 12-17-19 19 [facility] (7 sources) Wound Dressing Adhesive Drug Allergy 01-10-20 23 [facility] Work Phone: Medications Current Medications Medication Drug Class(es) Dates Sig (Normalized) Sig (Original) amoxicillin 875 mg oral tablet (4 sources) Penicillin-class Antibacterial Start: 12-24-2021 take 1 tablet by mouth every twelve hours Amoxicillin 875 MG 1 tablet Orally Twice a day Dec, Active b complex-folic acid tablet (7 sources) take 1 tablet by mouth in [...] INJECTION Active cholecalciferol 0.025 mg chewable tablet (12 sources) Vitamin D Start: 11-09-2019 take 1 tablet by mouth once daily Cholecalciferol (Vitamin D3) (Vitamin D3) 25 mcg (1,000 unit) Tablet,Chewable Active 1000 UNIT PO Daily November 09, 2019 12:00am take 1 tablet by mouth in the mo rning cholecalciferol 1,000 units tablet Take 1 tablet (1,000 Units total) by mouth in the morning. Active cholecalciferol, vitD3,/vit K2 (VITAMIN D3-VITAMIN K2 ORAL) (6 sources) cholecalciferol, vitD3,/vit K2 (VITAMIN D3-VITAMIN K2 [...] Feb, Active estradiol 0.1 mg/ml vaginal cream (4 sources) Estrogen Start: 05-20-2024 estradioL (ESTRACE) 0.01 % (0.1 mg/gram) vaginal cream Indications: Vaginal atrophy Insert 1 g into the vagina 2 (two) times a week. 42.5 g 3 05/20/2024 Active Start: 05-20-2024 estradioL (EST RACE) 0.01 % (0.1 mg/gram) vaginal cream Indications: Vaginal atrophy Insert 1 g into the vagina 2 (two) times a week. 42.5 g 3 05/20/2024 Active Start: 09-30-2023 End: 05-18-2024 estradioL (ESTRACE) 0.01 % ( 0.1 mg/gram) vaginal cream Indications: Vaginal atrophy Insert 0.5 g into the vagina 2 (two) times a week. 42.5 g 09/30/2023 05/18/2024 Discontinued (Reorder) ferrous fumarate/ascorbic ac id (WILLIAM-SEQUELS, IRON-VIT C, ORAL) (15 sources) ferrous fumarate /ascorbic acid (WILLIAM-SEQUELS, IRON-VIT C, ORAL) Take by mouth once daily. Active ferrous fumarate /ascorbic acid (WILLIAM-SEQUELS, IRON-VIT C, ORAL) Take by mouth once daily. 0 Active Comment on above: Take by mouth once d aily. fluticasone propionate 0.05 mg/actuat metered dose nasal spray (13 sources) Corticosteroid Start: take 2 spray(s) nasal route once daily [...] Active magnesium oxide 400 mg oral tablet (20 sources) Start: 09-17-2023 Magnesium Oxid e Active 400 MG PO As Directed September 17, 2023 12:00am FreeTextSig: as directed Orally; Note: Source Status: Taking; Provider: Gisel Lanier ( ) Multiple Vitamin (multivitamin) tablet (7 sources) take 1 tablet by mouth in the morning Multiple Vitamin (multivitamin) tablet Take 1 tablet by mouth in the morning. Active potassium citrate (6 sources) POTASSIUM CITRAT E ORAL Take by [...] Start: 02-27-2017 take 2 tablets by mo [facility] every eight hours as needed ALPRAZolam (XANAX) 0.25 mg tablet Take 0.5 mg by mouth three times a day as needed. 02/27/2017 Active Start: 02-27-2017 Xanax 0.25 MG 1/2 to 1 tablet Orally q8-12 hrs prn Feb, Active take 0.5 tablet by out three times daily as needed for anxiety [...] 1 tablet by mouth once daily Vit [id number] Fact-Fa Cmb #2 (Intrinsi R97-Rfakll) 500-20-800 mcg-mg-mcg Tablet Discontinued 1 TAB PO [...] as directed Orally for 6 days Not-Taking NON FORMULARY (2 sources) End: 05-18-2024 NON FORMULARY Vitamin B 12 I NJECTIONS 05/18/2024 Discontinued (Alternate therapy) NON FORMULARY Vi tamin B 12 INJECTIONS 0 Active microencapsulated potassium chloride 10 meq extended release oral tablet (2 sources) End: 05-18-2024 take 1 tablet by mouth in the morning potassium chloride (K-TAB,KLOR-CON) 10 MEQ CR tablet Take 1 tablet (10 mEq total) by mouth in the morning and 1 tablet (10 mEq total) before bedtime. 05/18/2024 Discontinued (Therapy completed) predniSONE 10 mg oral tablet (6 sources) Start: 02-23-2023 End: 09-17-2023 take 60 mg by mouth once daily, then take 40 mg by mouth once daily, then take 20 mg by mouth once daily, then take 10 mg by mouth once daily Prednisone Discontinued 10 MG PO Daily 39 February 23, 2023 12:00September 17, 2023 3:35pm 60mg daily for three [...] 15, 2019 1:00am November 09, 2019 1:09pm End: 05-18-2024 take 0.5 tablet by mouth in the morning sertraline (ZOLOFT) 25 mg tablet Take 0.5 tablets (12.5 mg total) by mouth in the morning. 05/18/2024 Discontinued (Therapy completed) Comment on above: Take 25 mg by mouth. tobramycin 3 mg/ml ophthalmic solution (9 sources) Aminoglycoside Antibacterial Start: 04-10-20 22 take 2 drop(s) into the eye(s) four [...] disorder, unspecified] Onset: 06-11-20 Resolved : 09-30-19 Chronic Calculus of urinary tract (20 sources) [...] Hypokalemia Episodic Genitourinary symptoms and ill-defined conditions (20 sources) Dysuria; Translations: [Nocturia] Onset: 09-07-19 Resolved : 01-10-20 23 09-06-2020 Episodic Heart valve disorders (2 sources) Heart [...] Other fatigue; Translations: [Fatigue] Episodic Menopausal disorders (7 sources) Postmenopausal bleeding; Translations: [Postmenopausal bleeding] Onset: 07-02-20 23 09-30-2023 Chronic Menstrual disorders (20 sources) Amenorrhea; Translations: [Amenorrhea, unspecified] Chronic Mood disorders (20 sources) Depressive disorder; Translations: [Major depressive disorder, single episode, unspecified] Chronic Nausea and vomiting (1 source) Nausea Episodic Nonmalignant breast conditions (4 sources) Heterogeneously dense breast composition; Translations: [Heterogeneously dense tissue of both breasts on mammography] Onset: 01-07-2001-07-2024 Episodic Nutritional deficiencies (20 sources) Vitamin D deficiency; Translations: [Vitamin D deficiency, unspecified] Chronic Nutritional deficiencies (20 sources) Deficiency of other specified B group vitamins; Translations: [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] Onset: 09-11-19 Resolved : 09-11-19 Episodic Other acquired deformities (1 source) Neuromuscular scoliosis, thoracic region; Translations: [Scoliosis associated with other conditions] 10-21-2023 Chronic Other aftercare (8 sources) Other predatory animal 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 (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 therapy; Translations: [OTH BUSINESS DATABASE ANALYST CURRENT DRUG THERAPY] Onset: 12-12-19 Resolved : 12-12-19 Episodic Other and unspecified benign neoplasm (1 source) Lipoma (clinical); Translations: [Benign lipomatous neoplasm, unspecified] 03-24-2024 Episodic Other and unspecified benign neoplasm (1 source) Benign lipomatous neoplasm, unspecified; Translations: [Lipoma, unspecified site] 03-24-2024 Episodic Other circulatory disease (1 source) Other specified symptoms and signs involving the circulatory and respiratory systems Episodic Other connective tissue disease (1 source) Other specified soft tissue disorders Episodic Other connective tissue disease (1 source) Cramp and spasm Episodic Other connective tissue disease (1 source) Pain in right foot Episodic Other connective tissue disease (1 source) History of osteopenia; Translations: [Personal history of other diseases of the musculoskeletal system and connective tissue] 05-18-2024 Episodic Other connective tissue disease (2 sources) Personal history of other diseases of the musculoskeletal system and connective tissue; Translations: [Personal history of other diseases of the musculoskeletal system and connective tissue] Onset: 05-18-20 Episodic Other diseases of bladder and urethra (20 sources) Spasm of bladder; Translations: [Other specified disorders of bladder] Chronic Other diseases of bladder and urethra (1 source) Urethral stricture 05-30-2020 Episodic Other female genital disorders (1 source) Vaginal lesion; Translations: [Other specified noninflammatory disorders of vagina] 06-01-2024 Episodic Other female genital disorders (2 sources) Other specified noninflammatory disorders of vagina; Translations: [Other specified noninflammatory disorders of vagina] Onset: 06-01-20 Episodic Other gastrointestinal disorders (20 sources) Constipation; [...] chronic pain] Chronic Other nervous system disorders (4 sources) [...] Onset: 12-09-19 Chronic Other nervous system disorders (2 sources) Cerebral cyst; Translations: [Cerebral cysts] 05-06-2024 Chronic Other nervous system disorders (20 sources) Abnormal involuntary movement; Translations: [Fasciculation] Episodic Other nervous system disorders (20 sources) Paresthesia; Translations: [Paresthesia of skin] Episodic Other nervous system disorders (20 sources) Spasmodic movement; Translations: [Fasciculation] 11-10-2023 Episodic Other nervous system disorders (2 sources) Paresthesia of skin Episodic Other nervous system disorders (6 sources) [...] disorders (1 source) Tremor 04-02-2024 Episodic Other nervous system disorders (4 sources) Benign fasciculation-cramp syndrome; Translations: [Fasciculation] 06-07-2024 Episodic Other nutritional; endocrine; and metabolic disorders [...] conditions (not mental disorders or infectious disease) (10 sources) Encounter for screening mammogram for malignant [...] Resolved : 09-30-1909-06-2020 Chronic Residual codes; unclassified (4 sources) Hypersomnia; Translations: [Hypersomnia, unspecified] 04-15-2024 Chronic Residual codes; unclassified (2 sources) Sleep-related groaning; Translations: [Other sleep disorders] 04-15-2024 Chronic Residual codes; unclassified (2 sources) Sleeptalking; Translations: [Other sleep disorders] 04-15-2024 Chronic Residual codes; unclassified (2 sources) Obstructive sleep apnea syndrome; Translations: [Obstructive sleep apnea (adult) (pediatric)] 04-15-2024 Chronic Residual codes; unclassified (2 sources) Periodic limb movement disorder; Translations: [Periodic limb movement disorder] 06-07-2024 Chronic Residual codes; unclassified (20 sources) Insomnia; Translations: [Insomnia, unspecified] Episodic Residual codes; unclassified (1 source) Family history of malignant neoplasm of ovary Episodic Residual codes; unclassified (4 sources) Disturbance in sleep behavior; Translations: [Sleep disorder, unspecified] 04-15-2024 Episodic Residual codes; unclassified (1 source) Chronic pain 04-02-2024 Episodic Residual codes; unclassified (1 source) Postmenopausal state; Translations: [Asymptomatic menopausal state] 05-18-2024 Episodic Residual codes; unclassified (2 sources) Asymptomatic menopausal state; Translations: [Asymptomatic menopausal state] Onset: 05-18-20 Episodic Spondylosis; intervertebral disc disorders; other back problems (20 sources) Degeneration of intervertebral disc; Translations: [Other intervertebral disc degeneration, lumbar region] Chronic Spondylosis; intervertebral disc disorders; other back problems (15 sources) Spinal stenosis, site unspecified; Translations: [Nerve root disorder] Onset: 12-09-19 Episodic Thyroid disorders (20 sources) Thyroid nodule; Translations: [Nontoxic single thyroid nodule] Onset: 01-10-20 23 Chronic Unclassified (1 source) LOW BACK PAIN, UNSPECIFIED; Translations: [LOW BACK PAIN, UNSPECIFIED] Onset: 08-03-19 22 Unclassified (1 source) Breast Problem Onset: 06-23-20 24 Unclassified (1 source) Vaginal Lesions Onset: 06-01-20 24 Unclassified (1 source) Gynecologic Exam Onset: 05-18-20 24 Unclassified (1 source) Low back pain, unspecified; Translations: [Low back pain, unspecified] Onset: 06-24-20 24 Urinary tract infections (1 source) Cystitis, unspecified without hematuria Episodic Past or Other Problems Problem Classification Problem Date Documented Da te Episodic/Chronic Abdominal pain (20 sources) Unspecified abdominal pain; Translations: [Right flank pain] Onset: 06-11-2021 Resolved: 01-09-2023 Episodic E Codes: Natural/environment (1 source) Bitten [...] Test Name Value Interpretation Reference Range Facility MAMM DIAGNOSTIC UNILAT LT W CADon 07-01-2024 MAMM DIAGNOSTIC UNILAT LT W CAD MAMM DIAGNOSTIC UNILAT LT W CAD EDNA SULTANA 1965 [id number], [id number] EXAM: MAMM DIAGNOSTIC UNILAT LT W CAD, US BREAST LT LIMITED, 07/01/2024 1:51 PM CLINICAL INDICATIONS: Nipple pain, COMPARISON: Prior mammograms most recently 01/07/2024. MBI 06/11/2024. TECHNIQUE: Supplemental views of the left breast were obtained for diagnostic workup. Digital tomosynthesis images were obtained, with creation of synthetic 2D views. Computer aided detection was utilized. FINDINGS: The breasts are heterogeneously dense, which may obscure small masses. There is no underlying mammographic abnormality in the retroareolar region. Targeted ultrasound will be performed at this location. There are no suspicious masses, calcifications, or areas of architectural distortion. ____ Left Breast Ultrasound, Limited TECHNIQUE: Multiple real-time estrada-scale images of the left breast in the retroareolar region were performed. Color Doppler was utilized to assess vascular flow. FINDINGS: There is no focal mass, architectural distortion or abnormal vascularity visualized. ____ COMBINED IMPRESSION: No mammographic or sonographic evidence of malignancy. BI-RADS: BI-RADS 1 - Negative RECOMMENDATION: Continued yearly mammogram with MBI every other year.. Continued supplemental screening with MBI is suggested given dense breast tissue. Patient is due in 2 years. Patient was given the results before leaving the department. Finalized by Waldo Esparza MD on 07/01/2024 2:17 PM 1 c MBI CONT Normal [facility] US BREAST LT LIMITEDon 07-01 US BREAST LT LIMITED US BREAST LT LIMITE Danica SULTANA 1965 [id number], [id number] EXAM: MAMM DIAGNOSTIC UNILAT LT W CAD, US BREAST LT LIMITED, 07/01/2024 1:51 PM CLINICAL INDICATIONS: Nipple pain, COMPARISON: Prior mammograms most recently 01/07/2024. MBI 06/11/2024. TECHNIQUE: Supplemental views of the left breast were obtained for diagnostic workup. Digital tomosynthesis images were obtained, with creation of synthetic 2D views. Computer aided detection was utilized. FINDINGS: The breasts are heterogeneously dense, which may obscure small masses. There is no underlying mammographic abnormality in the retroareolar region. Targeted ultrasound will be performed at this location. There are no suspicious masses, calcifications, or areas of architectural distortion. ____ Left Breast Ultrasound, Limited TECHNIQUE: Multiple real-time estrada-scale images of the left breast in the retroareolar region were performed. Color Doppler was utilized to assess vascular flow. FINDINGS: There is no focal mass, architectural distortion or abnormal vascularity visualized. ____ COMBINED IMPRESSION: No mammographic or sonographic evidence of malignancy. BI-RADS: BI-RADS 1 - Negative RECOMMENDATION: Continued yearly mammogram with MBI every other year.. Continued supplemental screening with MBI is suggested given dense breast tissue. Patient is due in 2 years. Patient was given the results before leaving the department. Finalized by Waldo Esparza MD on 07/01/2024 2:17 PM 1 c MBI CONT Normal [facility] MR lumbar spine wo [facility] MR lumbar spine wo con [facility] [place] [address] MRI Report Signed Patient: Edna Sultana MR#: [id number] : 1965 Acct:[id number] Age/Sex: 58 / F ADM Date: 06/24/24 Loc: [facility] Room: Type: [facility] Attending Dr: Ivy Garcia APRN Copies to: Ivy Garcia APRN Ordering Provider: Ivy Garcia APRN Date of Service: 06/24/24 MR/MR lumbar spine wo con: R25.3 EXAMINATION: MRI LUMBAR SPINE WITHOUT IV CONTRAST CLINICAL HISTORY: Chronic low back pain radiating down both legs with numbness and tingling. No known injury. COMPARISON: Lumbar spine 03/05/2023 TECHNIQUE: Multiecho imaging was performed in the sagittal and axial planes without contrast administration. FINDINGS: Vertebral body heights appear maintained. Endplate degenerative changes. Diffuse disc desiccation. Spinal cord terminates in normal position without abnormal cord signal. A cyst is seen involving the sacral spinal canal. No paraspinal mass. Visualized retroperitoneum demonstrates no acute process. At L1-L2: No posterior disc pathology. Mild facet joint degenerative change. No significant neural canal or foraminal stenosis. At L2-L3: Diffuse broad-based disc bulge is present malignant flavum hypertrophy and facet joint degenerative changes causing moderate canal and bilateral neural foraminal stenosis. At L3-L4: Diffuse broad-based disc bulge is present with ligamentum flavum hypertrophy and facet joint degenerative changes causing moderate canal and bilateral neural foraminal stenosis. At L4-L5: Diffuse broad-based disc bulge is present with ligament flavum hypertrophy and facet joint degenerative changes causing moderate canal and bilateral neural foraminal stenosis. At L5-S1: Diffuse broad-based disc bulge is present with facet joint degenerative changes. No significant canal stenosis. Moderate bilateral neural foraminal stenosis. MR/MR lumbar spine wo con IMPRESSION: Multilevel degenerative disease as described above causing moderate canal and bilateral neural foraminal stenosis. Impression dictated by: Pranay Thomson Jr., D.O.06/24/2024 11:02 AM Dictation Location: [place] [address] Transcribed By: [facility] 06/24/24 1102 Dictated By: Pranay Thomson Jr, DO 06/24/24 1059 Signed By: 06/24/[address] [facility] US PELVIC WITH TRANSVAGINALo n 06-18-2024 US PELVIC WITH TRANSVAGINAL US PELVIC WITH TRANSVAGINAL HISTORY: Vaginal lesion. Postmenopausal patient COMPARISON: None TECHNIQUE: Multiplanar transabdominal and transvaginal ultrasonography of the pelvis using grayscale imaging, supplemented by color Doppler as needed. FINDINGS: The uterus measures 7.2 x 3.7 x 4.8 cm. Small uterine fibroids is visualized measuring 6.9 x 6.3 x 7.7 mm. Endometrial stripe measures 4.5 mm in thickness at the upper limits of normal for postmenopausal patient. The cervix appears unremarkable. .The right ovary measures 2.1 x 1.4 x 1.4 cm.The left ovary measures 2.3 x 1.0 x 2.3 cm. No adnexal masses. Color Doppler demonstrates arterial and venous flow in both ovaries The bladder is within normal limits. No fluid in the cul-de-sac.. IMPRESSION: Small uterine fibroids. Otherwise, unremarkable pelvic echo.. Finalized by Ruel Quinn MD on 06/18/2024 7:00 AM Normal [facility] MR Brain WO and W contrast I Von 06-10-2024 IMPRESSION: Unchanged examination. Nonenhancing T2/FLAIR hyperintense lesion in the anterior right temporal lobe is unchanged from 12/09/2023. Office Administration Instructor: MICHAEL Transcribe Date/Time: Jun 10 2024 11:32A Dictated by : YAEL HOUSE MD This examination was interpreted and the report reviewed and electronically signed by: YAEL HOUSE MD on Jun 10 2024 11:42AM [facility] DIVISION OF RADIOLOGY * * *Final Report* * * DATE OF EXAM: Jun 10 2024 11:12AM [facility] 0295 - MRI BRAIN WO/W IVCON / PROCEDURE REASON: Brain cyst * * * * Physician Interpretation * * * * EXAMINATION: MRI BRAIN WO/W IVCON CLINICAL HISTORY: Right temporal lobe cyst. Follow-up exam. TECHNIQUE: Routine brain MRI protocol without and with contrast including diffusion images. MQ: [id number] Contrast: 14 mL Dotarem IV COMPARISON: MRI brain 12/09/2023 RESULT: Acute Change: There is no evidence of restricted diffusion to suggest an acute infarct. Hemorrhage: Nonspecific focus of susceptibility artifact along the anterior aspect of the right putamen. Mass Lesion/ Mass Effect: Unchanged appearance of T2/FLAIR hyperintense lesion in the anterior right temporal lobe measuring 1.1 x 0.7 cm. No associated enhancement or susceptibility artifact. No significant mass effect. Chronic Change: The white matter is within normal limits of signal intensity for age. Unchanged T2/FLAIR hyperintensity in the left greater than right globi pallidi, favored to represent prominent perivascular spaces. Parenchyma: No significant volume loss for age. The brain parenchyma is otherwise within normal limits of signal intensity and morphology. Ventricles: Normal caliber and morphology. Skull Base: [...] tissues are unremarkable. DIVISION OF RADIOLOGY Provider, Wil[facility] Palom[facility]R [facility] - 06/10/2024 * * *Final Report* * * DATE OF EXAM: Jun 10 2024 11:12AM [facility] 0295 - MRI BRAIN WO/W IVCON / PROCEDURE REASON: Brain cyst * * * * Physician Interpretation * * * * EXAMINATION: MRI BRAIN WO/W IVCON CLINICAL HISTORY: Right temporal lobe cyst. Follow-up exam. TECHNIQUE: Routine brain MRI protocol without and with contrast including diffusion images. MQ: [id number] Contrast: 14 mL Dotarem IV COMPARISON: MRI brain 12/09/2023 RESULT: Acute Change: There is no evidence of restricted diffusion to suggest an acute infarct. Hemorrhage: Nonspecific focus of susceptibility artifact along the anterior aspect of the right putamen. Mass Lesion/ Mass Effect: Unchanged appearance of T2/FLAIR hyperintense lesion in the anterior right temporal lobe measuring 1.1 x 0.7 cm. No associated enhancement or susceptibility artifact. No significant mass effect. Chronic Change: The white matter is within normal limits of signal intensity for age. Unchanged T2/FLAIR hyperintensity in the left greater than right globi pallidi, favored to represent prominent perivascular spaces. Parenchyma: No significant volume loss for age. The brain parenchyma is otherwise within normal limits of signal intensity and morphology. Ventricles: Normal caliber and morphology. Skull Base: Hypothalamic and pituitary region are grossly normal. Craniocervical junction is normal. No significant marrow replacement process. Vasculature: Major intracranial arterial structures, and dural venous sinuses show typical flow void, suggesting patency by spin echo criteria. Other: The visualized paranasal sinuses and mastoid air cells are clear. The orbits and extracranial soft tissues are unremarkable. IMPRESSION IMPRESSION: Unchanged examination. Nonenhancing T2/FLAIR hyperintense lesion in the anterior right temporal lobe is unchanged from 12/09/2023. Office Administration Instructor: MICHAEL Transcribe Date/Time: Jun 10 2024 11:32A Dictated by : YAEL HOUSE MD This examination was interpreted and the report reviewed and electronically signed by: YAEL HOUSE MD on Jun 10 2024 11:42AM EST [facility] Radiology Study observation (narrative) [facility] MR Brain WO and W contrast I VOrdered By: Ccf Provider on 06-10-2024 [facility] DEXA SCAN CENTRAL SKELETALon 05-31-2024 DEXA SCAN CENTRAL SKELETAL DEXA SCAN CENTRAL SKELETAL CLINICAL INFORMATION: Screening for osteoporosis; Postmenopausal; Hx of osteopenia. TECHNIQUE: Dual X-ray Absorptiometry (DXA) was performed. COMPARISON: 07/13/2020 FINDINGS: LUMBAR SPINE (L1-L4): BMD is 1.353 gm/cm2. Decrease of 2.4% since prior. T-score is 1.3. LEFT FEMORAL NECK: BMD is 0.842 gm/cm2. T-score is -1.4. LEFT TOTAL FEMUR: BMD is 0.862 gm/cm2. T-score is -1.2. RIGHT FEMORAL NECK: BMD is 0.813 gm/cm2. T-score is -1.6. RIGHT TOTAL FEMUR: BMD is 0.844 gm/cm2. T-score is -1.3. Total mean decrease in the femurs of 3.7% since prior. The estimated 10-year probability for a major osteoporotic fracture (utilizing FRAX) is 24.0% and for a hip fracture is 1.3%. IMPRESSION: The exam is considered to be osteopenic by the National Osteoporosis Foundation guidelines. Recommend consideration for initiation of therapy. WHO CLASSIFICATION: Normal: T-score -1.0 or above Osteopenia: T-score -1.1 to < 2.5 Osteoporosis: T-score -2.5 or lower Secondary causes of bone loss should be evaluated if clinically indicated since the etiology of low BMD cannot be determined by BMD measurement alone. The current National Osteoporosis Foundation guide recommends treating patients with FRAX ten year risk scores of greater than or equal to 3% for hip fracture or greater than or equal to 20% for major osteoporotic fracture, to reduce their fracture risk. Finalized by Gerardo Arreguin MD on 05/31/2024 3:41 PM Normal [facility] URINALYSISon 05-18-2024 Bilirubin Ql (U) Negative Normal NEG [facility] Comment on above: Performed By: #### U A #### [facility] ([id number]) [address], [address] [place] [address] BLOOD/HGB Negative Normal NEG [facility] Comment on above: Performed By: #### U A #### [facility] ([id number]) [address], [address] [place] [address] Color (U) YELLOW Normal YELLOW [facility] Comment on above: Performed By: #### U A #### [facility] ([id number]) [address] [facility], [address] [place] [address] Glucose Ql (U) Negative Normal NEG [facility] Comment on above: Performed By: #### U A #### [facility] ([id number]) [address] [facility], [address] [place] [address] Ketones Ql (U) Negative Normal NEG [facility] Comment on above: Performed By: #### U A #### [facility] ([id number]) [facility], [address] [place] [address] Leukocyte esterase Test strip Ql (U) Negative Normal NEG [facility] Comment on above: Performed By: #### U A #### [facility] ([id number]) [address] [facility], [address] [place] [address] Nitrite Ql (U) Negative Normal NEG [facility] Comment on above: Performed By: #### U A #### [facility] ([id number]) [address], [address] [place] [address] pH (U) 6.5 [pH] Normal 5.0-8.5 [facility] Comment on above: Performed By: #### U A #### [facility] ([id number]) [facility], [address] [place] [address] Protein Ql (U) Negative Normal NEG [facility] Comment on above: Performed By: #### U A #### [facility] ([id number]) [address], [address] [address] Specific gravity (U) [Rel density] 1.013 Normal 1.003-1.035 [facility] Comment on above: Performed By: #### U A #### [facility] ([id number]) [address] [address] TURBIDITY CLEAR Normal CLEAR [facility] Comment on above: Performed By: #### U A #### [facility] ([id number]) [address], [address] [address] Urobilinogen (U) [Mass/Vol] mg/dL Normal <1.1 [facility] Comment on above: Performed By: #### U A #### [facility] ([id number]) [address] [address] URINE CULTUREon 05-18-2024 Bacteria identified Cx Nom (U) CULTURE RESULTS NO GROWTH AT <1000 CFU/mL Normal [facility] Comment on above: Performed By: #### 6 30-4 #### [facility] ([id number]) [address] [address] URINE CULTURE, ROUTINEon Bacteria identified Cx Nom (U) Urine Culture, Routine [facility] Bacteria identified Cx Nom (U) Culture shows less than 10,000 colony forming units of bacteria per [facility] Bacteria identified Cx Nom (U) milliliter of urine. This colony count is not generally considered [facility] Bacteria identified Cx Nom (U) to be clinically significant. [facility] Bacteria identified Cx Nom (U) Performed at: [facility] Bacteria identified Cx Nom (U) [address] [place], [place] [id number] [facility] Bacteria identified Cx Nom (U) [employer]: Tha Jimenez PhD, Phone: [phone] [facility] [employer] Amb[facility] Visit Summaryon 1 Ambulatory Visit Summary [...] for choosing us for your care. Normal [facility] Basophil percentageon 2023 Basophil percentage 99 ug/dL 80-155 [facility] Comment on above: This test was leah green, and its performance characteristics determined by the [facility] Department of Pathology and Laboratory Medicine. It has not been cleared or approved by the FDA. The [facility] Department of Pathology and Laboratory Medicine is regulated under CLIA as qualified to perform high-complexity testing. This test is used for clinical purposes. It should not be regarded as investigational or for research. CELIAC SCREENon 03-23-2024 GLIAD DEAMIDATED IGA QUAL Negative Normal Negative, Test not Indicated [facility] Comment on above: Order Comment: Kraig sandoval Type: BLOOD SPECIMEN Ordering Facility: [facility] Address: [address] [place] [address] Result Comment: This is used as an aid in diagnosis of celiac disease. Clinical correlation is required. The following results were obtained with an [employer] QUANTA Lite Gliadin IgA ANGELA Gliadin. Gliadin IgA values obtained with different manufacturers' assay methods may not be used interchangeably. The magnitude of the reported IgA levels cannot be correlated to an endpoint titer. Performed By: #### C OPPER, 5763-8 #### [facility] CLIA [id number] [address] [place] [address] [place] Gliadin peptide IgA Qn (S) 4 Units Normal <20 [facility] Comment on above: Order Comment: Kraig sandoval Type: BLOOD SPECIMEN Ordering Facility: [facility] Address: [address] [place] [address] Performed By: #### C OPPER, 5763-8 #### [facility] CLIA [id number] [address] [place] [address] [place] INTERPRETATION No serological evidence of celiac disease, however, if celiac disease is clinically suspected and patient is not on gluten-free diet, histological diagnosis may be considered. HLA testing may help with risk assessment. Normal [facility] Comment on above: Order Comment: Kraig sandoval Type: BLOOD SPECIMEN Ordering Facility: [facility] Address: [address] [place] [address] Performed By: #### C OPPER, 5763-8 #### [facility] CLIA [id number] [address] [place] [address] [place] TRANSGLUTAMINASE IGA ABS INTERPRETATION Negative Normal Negative [facility] Comment on above: Order Comment: Kraig sandoval Type: BLOOD SPECIMEN Ordering Facility: [facility] Address: [address] [place] [address] Result Comment: The following results were obtained with [employer] QUANTA Lite R h-tTG IgA ANGELA.???R h-tTG IgA values obtained with different manufacturers' assay methods may not be used interchangeably. The magnitude of the reported IgA levels cannot be corelated to an endpoint???concentration. This is used as an aid in diagnosis of celiac disease. Clinical correlation is required. Performed By: #### Chelsea HAIR, 5763-8 #### [facility] CLIA [id number] [address] [place] [address] tTG IgA Qn (S) <2 Normal <4 [facility] Comment on above: Order Comment: Speci men Type: BLOOD SPECIMEN Ordering Facility: [facility] Address: [address] [place] [address] Performed By: #### Chelsea HAIR, 5763-8 #### [facility] CLIA [id number] [address] [place] [address] CNOVon 03-23-2024 CNOV Office Visit (NENMMN ) EDNA SULTANA ([id number]) 1965 F Date Time Provider Department 03/23/24 3:00 PM JANNA GILMAN [facility] During your visit today, we recorded the [...] which included preparing to see the patient, [id number] patient care, completing clinical documentation, obtaining and/or reviewing separately obtained history, performing a medically appropriate examination, counseling and educating the patient/family/caregiv er, and ordering medications, tests, or procedures. Janna Gilman MD cc: Abiodun Castano [id number] [facility] [address] Edna Surjit Rodriguezht [id number] [address] [facility] [address] Referring Provider: ABIODUN CASTANO [[id number]] Allergies As of Date: 03/23/2024 Noted Allergy Reaction ADHESIVE 05/20/2006 9 - Itching 2 - Rash 7 - Swelling ADHESIVE TAPE-SILICONES 09/06/2020 2 - Rash 4 - Hives FLUOROURACIL-ADHESIVE BANDAGE 12/16/2018 2 - Rash Date Reviewed: 03/23/2024 Reviewed by: Jaci Burton OCCA - (more content not included)... Normal [facility] COPPER BLOODon 03-23-2024 Copper [Mass/Vol] 99 ug/dL Normal 80-155 [facility] Comment on above: Order Comment: Speci men Type: BLOOD SPECIMEN Ordering Facility: [facility] Address: [address] [place] [address] Result Comment: This test was developed, and its performance characteristics determined by the [facility] Department of Pathology and Laboratory Medicine. It has not been cleared or approved by the FDA. The [facility] Department of Pathology and Laboratory Medicine is regulated under CLIA as qualified to perform high-complexity testing. This test is used for clinical purposes. It should not be regarded as investigational or for research. Performed By: #### Chelsea HAIR, 5763-8 #### [facility] CLIA [id number] [address] [place] [address] [place] Ceruloplasmin SerPl-mCncon 0 03-23-2024 Ceruloplasmin [Mass/Vol] 26 mg/dL Normal 16-45 [facility] Comment on above: Order Comment: Speci men Type: BLOOD SPECIMEN Ordering Facility: [facility] Address: [address] [place] [address] Performed By: #### 2 064-4 #### [facility] CLIA [id number] [address] [place] [address] IMMUNOFIXATION SCREEN, SERUM on 03-23-2024 MPA RESULT No M protein is identified. Normal No M protein is identified. [facility] Comment on above: Order Comment: Speci men Type: BLOOD SPECIMEN Ordering Facility: [facility] Address: [address] [place] [address] Performed By: #### Chelsea HAIR, 5763-8 #### [facility] CLIA [id number] [address] [place] [address] OF [place] STAFF REVIEW (MPA) Reviewed by Dr. Ania Melo MD [facility] Comment on above: Order Comment: Speci men Type: BLOOD SPECIMEN Ordering Facility: [facility] Address: [address] [place] [address] Performed By: #### Chelsea HAIR, 5763-8 #### [facility] CLIA [id number] [address] [place] [address] [place] IgA SerPl-mCncon 03-23-2024 IgA [Mass/Vol] 242 mg/dL Normal 70-400 [facility] Comment on above: Order Comment: Speci men Type: BLOOD SPECIMEN Ordering Facility: [facility] Address: [address] [place] [address] Performed By: #### Chelsea HAIR, 5763-8 #### [facility] CLIA [id number] [address] [place], [place] [address] [id number] [address] [place] IgA [Mass/volume] in Serum o r Plasmaon 03-23-2024 IgA [Mass/Vol] 242 mg/dL 70-400 [facility] Immunoglobulin light chains. kappa.free [Mass/volume] in Serumon 03-23-2024 Immunoglobulin light chains.kappa.free (S) [Mass/Vol] 10.8 mg/L 3.3-19.4 [facility] Comment on above: Rarely, increased se rum free light chains levels may not be detected or accurately quantified due to prozone phenomenon or in high viscosity samples using this immunoturbidimetric assay. Correlation with other laboratory results and clinical findings is recommended. The [place] Free Light Chain was performed using the Binding Site Optilite immunoturbidimetric method. Result obtained with different assay methods or kits cannot be used interchangeably. Immunoglobulin light chains. kappa.free/Immunoglobulin light chains.lambda.free [Sharon 03-23-2024 Immunoglobulin light chains.kappa.free/Im munoglobulin light chains.lambda.free (S) [Mass ratio] 1.30 0.26-1.65 [facility] Immunoglobulin light chains. lambda.free [Mass/volume] in Serum or Plasmaon 03-23-2024 Immunoglobulin light chains.lambda.free [Mass/Vol] 8.3 mg/L 5.7-26.3 [facility] Comment on above: Rarely, increased se [...] chains.kappa.free (S) [Mass/Vol] 10.8 mg/L Normal 3.3-19.4 [facility] Comment on above: Order Comment: Speci men Type: BLOOD SPECIMEN Ordering Facility: [facility] Address: [address] [place] [address] Result Comment: Rare ly, increased serum free light chains levels may not be detected or accurately quantified due to prozone phenomenon or in high viscosity samples using this immunoturbidimetric assay. Correlation with other laboratory results and clinical findings is recommended. The [place] Free Light Chain was performed using the Binding Site Optilite immunoturbidimetric method. Result obtained with different assay methods or kits cannot be used interchangeably. Performed By: #### C LAXMI, 5763-8 #### [facility] CLIA [id number] [address] [place] [address] [place] Immunoglobulin light chains.kappa/Immunog lobulin light chains.lambda (S) [Mass ratio] 1.30 Normal 0.26-1.65 [facility] Comment on above: Order Comment: Speci men Type: BLOOD SPECIMEN Ordering Facility: [facility] Address: [address] [place] [address] Performed By: #### Chelsea HAIR, 5763-8 #### [facility] CLIA [id number] [address] [place] [address] [place] Immunoglobulin light chains.lambda.free [Mass/Vol] 8.3 mg/L Normal 5.7-26.3 [facility] Comment on above: Order Comment: Speci men Type: BLOOD SPECIMEN Ordering Facility: [facility] Address: [address] [place] [address] Result Comment: Rare ly, increased serum free [...] #### C LAXMI, 5763-8 #### [facility] CLIA [id number] [address] [place] [address] [place] No Panel Informationon 03-23 Gliadin (Deamidated) IgA Ab Interp Negative Negative, Test not Indicated [facility] Comment on above: This is used as an a id in diagnosis of celiac disease. Clinical correlation is required.The following results were obtained with an [employer] QUANTA Lite Gliadin IgA ANGELA Gliadin. Gliadin IgA values obtained with different manufacturers' assay methods may not be used interchangeably. The magnitude of the reported IgA levels cannot be correlated to an endpoint titer. Miscellaneous Test Comment [facility] Tissue Transglutaminase IgA Interp Negative Negative [facility] Comment on above: The following result [...] zinc measurementon Zinc [Mass/Vol] 72 ug/dL 60-120 [facility] Comment on above: This test was leah green, and its performance characteristics determined by the [facility] Department of Pathology and Laboratory Medicine. It has not been cleared or approved by the FDA. The [facility] Department of Pathology and Laboratory Medicine is regulated under CLIA as qualified to perform high-complexity testing. This test is used for clinical purposes. It should not be regarded as investigational or for research. Serum gliadin peptide IgA an tibody assay (units/volume)on 03-23-2024 Gliadin peptide IgA Qn (S) 4 Units <20 [facility] Serum or plasma ceruloplasmi n measurement (mass/volume)on 03-23-2024 Ceruloplasmin [Mass/Vol] 26 mg/dL 16-45 [facility] Serum tissue transglutaminas e (tTG) IgA antibody assay (units/volume)on 03-23-2024 tTG IgA Qn (S) <2 U/mL <4 [facility] Zinc SerPl-mCncon 03-23-2024 Zinc [Mass/Vol] 72 ug/dL Normal 60-120 [facility] Comment on above: Order Comment: Speci men Type: BLOOD SPECIMEN Ordering Facility: [facility] Address: [address] [place] [address] Result Comment: This test was developed, and its performance characteristics determined by the [facility] Department of Pathology and Laboratory Medicine. It has not been cleared or approved by the FDA. The [facility] Department of Pathology and Laboratory Medicine is regulated under CLIA as qualified to perform high-complexity testing. This test is used for clinical purposes. It should not be regarded as investigational or for research. 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 Normal [facility] MR Brain WO and W contrast I [...] toxic/metabolic insult is also within the differential. Office Administration Instructor: MICHAEL Transcribe Date/Time: Dec 09 2023 11:06A Dictated by : MARY COWART MD This examination was interpreted and the report reviewed and electronically signed by: MARY COWART MD on Dec 09 2023 11:11AM [facility] DIVISION OF RADIOLOGY * * *Final Report* * * DATE OF EXAM: Dec 09 2023 11:06AM [facility] 0295 - MRI BRAIN WO/W [...] tissues are unremarkable. DIVISION OF RADIOLOGY Provider, [facility] - 12/09/2023 * * *Final Report* * * DATE OF EXAM: Dec 09 2023 11:06AM [facility] 0295 - MRI BRAIN WO/W IVCON / [...] toxic/metabolic insult is also within the differential. Office Administration Instructor: PSCB Transcribe Date/Time: Dec 09 2023 11:06A Dictated by : MARY COWART MD This examination was interpreted and the report reviewed and electronically signed by: MARY COWART MD on Dec 09 2023 11:11AM [facility] MR Brain WO and W contrast I VOrdered By: Ccf Provider on 12-09-2023 [facility] MR Cervical spine WO and W c [...] vertebrae with counting from the craniocervical junction. Office Administration Instructor: MICHAEL Transcribe Date/Time: Dec 09 2023 11:12A Dictated by : MARY COWART MD This examination was interpreted and the report reviewed and electronically signed by: MARY COWART MD on Dec 09 2023 11:20AM [facility] DIVISION OF RADIOLOGY * * [...] or foraminal stenosis. DIVISION OF RADIOLOGY Provider, [facility] - 12/09/2023 * * *Final Report* * * DATE OF EXAM: Dec 09 2023 11:06AM [facility] 0298 - MRI CERVICAL SPINE WO/W IVCON [...] vertebrae with counting from the craniocervical junction. Office Administration Instructor: MICHAEL Transcribe Date/Time: Dec 09 2023 11:12A Dictated by : MARY COWART MD This examination was interpreted and the report reviewed and electronically signed by: MARY COWART MD on Dec 09 2023 11:20AM EST [facility] MR Cervical spine WO and W c ontrast IVOrdered By: Ccf Provider on 12-09-2023 [facility] MR Thoracic spine WO and W c ontrast David [...] discrepancies from the craniocervical and lumbosacral junctions. Office Administration Instructor: [facility]ENTERFan Transcribe Date/Time: Dec 09 2023 11:20A Dictated by : MARY COWART MD This examination was interpreted and the report reviewed and electronically signed by: MARY COWART MD on Dec 09 2023 11:23AM [facility] DIVISION OF RADIOLOGY * * *Final Report* * * DATE OF EXAM: Dec 09 2023 11:06AM [facility] 0326 - MRI THORACIC SPINE [...] or foraminal stenosis. DIVISION OF RADIOLOGY Provider, Wilver Padilla - 12/09/2023 * * *Final Report* * [...] discrepancies from the craniocervical and lumbosacral junctions. Office Administration Instructor: MICHAEL Transcribe Date/Time: Dec 09 2023 11:20A Dictated by : MARY COWART MD This examination was interpreted and the report reviewed and electronically signed by: MARY COWART MD on Dec 09 2023 11:23AM EST [facility] Radiology Study observation (narrative) [facility] MR Thoracic spine WO and W c ontrast IVOrdered By: Ccf Provider on 12-09-2023 [facility] MRI BRAIN WO/W IVCONon 12-08 MRI BRAIN WO/W IVCON * * *Final Report* * * DATE OF EXAM: Dec 09 2023 11:06AM [facility] 0295 - MRI BRAIN WO/W IVCON / [...] toxic/metabolic insult is also within the differential. Office Administration Instructor: MICHAEL Transcribe Date/Time: Dec 09 2023 11:06A Dictated by : MARY COWART MD This examination was interpreted and the report reviewed and electronically signed by: MARY COWART MD on Dec 09 2023 11:11AM EST [id number] Normal [facility] MRI CERVICAL SPINE WO/W IVCO Non 12-09-2023 MRI CERVICAL SPINE WO/W IVCON * * *Final Report* * * DATE OF EXAM: Dec 09 2023 11:06AM [facility] 0298 - MRI CERVICAL SPINE WO/W IVCON [...] vertebrae with counting from the craniocervical junction. Office Administration Instructor: MICHAEL Transcribe Date/Time: Dec 09 2023 11:12A Dictated by : MARY COWART MD This examination was interpreted and the report reviewed and electronically signed by: MARY COWART MD on Dec 09 2023 11:20AM EST [id number] Normal [facility] MRI THORACIC SPINE WO/W IVCO Non 12-09-2023 [...] discrepancies from the craniocervical and lumbosacral junctions. Office Administration Instructor: MICHAEL Transcribe Date/Time: Dec 09 2023 11:20A Dictated by : MARY COWART MD This examination was interpreted and the report reviewed and electronically signed by: MARY COWART MD on Dec 09 2023 11:23AM EST [id number] Normal [facility] No Panel Informationon 12-08 Radiology Study observation (narrative) [facility] Giovanni 11-06-2023 CNPN Telephone (SPMEST) EDNA SULTANA ([id number]) 1965 F Date Time Provider Department 11/06/23 ABIODUN CASTANO SPMEST During your visit today, [...] Hives Date Reviewed: 10/21/2023 Reviewed by: Kimberly oHuse MA - Fully Assessed Reason for Visit: [...] Encounter Date Provider Department Center 11/06/20232065-ABIODUN CASTANO [facility] Encounter Status:Closed by KIMBERLY HOUSE on 11/06/23 [facility] Giovanni 11-05-2023 [facility] Telephone (MONTYEST) EDNA SULTANA ([id number]) 1965 F Date Time Provider Department 11/05/23 [...] recommendation. I will send the patient a [email or web address] message also so she is aware. Devin please cancel her other MRIs and I have placed new orders. Abiodun Castano, Allergies As of Date: 11/05/2023 Noted Allergy [...] Status:Closed by ABIODUN CASTANO on 11/06/23 Normal [facility] 10-28-2023 CNPN Telephone (SPMEST) EDNA SULTANA ([id number]) 1965 F Date Time Provider Department 10/28/23 ABIODUN CASTANO SPMEST During your visit today, [...] Fully Assessed Reason for Visit: MRI Appointment [1889] Follow Up [171] Prescriptions as of 11/03/2023 [...] Encounter Date Provider Department Center 10/28/20232065-ABIODUN CASTANO [facility] Stro Encounter Status:Closed by KIMBERLY HOUSE on 11/03/23 Normal [facility] Automated epithelial cells c ount in urine sediment (number/area)on 10-25-2023 Epithelial cells Auto (Urine sed) [#/Area] NONE SEEN #/LPF NONE/RARE [facility] Automated leukocytes count i n urine sediment (number/area)on 10-25-2023 WBC Auto (Urine sed) [#/Area] 5-10 #/HPF 0-2 [facility] Automated urine specific gra vity by refractometryon 10-25-2023 Specific gravity Refractometry automated (U) [Rel density] 1.025 1.005-1.025 [facility] Bilirubin Auto test strip (U ) [Mass/Vol]on 10-25-2023 Bilirubin (U) [Mass/Vol] COLOR INTERFERENCE NEGATIVE [facility] Casts typing in urine sedime nt by light microscopyon 10-25-2023 Casts LM Nom (Urine sed) NONE SEEN #/LPF NONE SEEN [facility] Color Auto (U)on 10-25-2023 Color (U) ORANGE YELLOW [facility] Ketones Auto test strip (U) [Mass/Vol]on 10-25-2023 Ketones (U) [Mass/Vol] COLOR INTERFERENCE mg/dL NEGATIVE [facility] Mucus LM Ql (Urine sed)on Mucus Ql (Urine sed) NONE SEEN NONE SEEN [facility] Protein Auto test strip (U) [Mass/Vol]on 10-25-2023 Protein (U) [Mass/Vol] COLOR INTERFERENCE mg/dL NEG/TRACE [facility] Specific gravity Auto test s trip (U) [Rel density]on 10-25-2023 Specific gravity (U) [Rel density] CLEAR CLEAR [facility] Urine bacteria detection by automated methodon 10-25-2023 Bacteria Auto Ql (U) TRACE #/HPF NONE SEEN [facility] Urine glucose measurement by test strip (mass/volume)on 10-25-2023 Glucose Test strip (U) [Mass/Vol] COLOR INTERFERENCE mg/dL NEGATIVE [facility] Urine hemoglobin detection b y automated test stripon 10-25-2023 Hemoglobin Auto test strip Ql (U) COLOR INTERFERENCE NEGATIVE [facility] Urine nitrite detection by a utomated test stripon 10-25-2023 Nitrite Auto test strip Ql (U) COLOR INTERFERENCE NEGATIVE [facility] Urine sediment crystal ident ification by light microscopyon 10-25-2023 Crystals LM Nom (Urine sed) None Seen #/HPF None Seen [facility] Urine sediment leukocyte cou nt by microscopy (number/high power field)on 10-25-2023 WBC LM.HPF (Urine sed) [#/Area] 0-2 #/HPF NONE SEEN [facility] Urobilinogen Auto test strip (U) [Mass/Vol]on 10-25-2023 Urobilinogen (U) [Mass/Vol] COLOR INTERFERENCE EU/dL 0.2-1.0 [facility] pH Auto test strip (U)on pH (U) COLOR INTERFERENCE 5.0-9.0 [facility] CNOVon 10-21-2023 CNOV Office Visit (SPMEST ) EDNA SULTANA ([id number]) 1965 F Date Time Provider Department 10/21/23 8:00 AM ABIODUN CASTANO SPMEST During your visit today, we recorded the following information about you: Respiration Weight Height 12/minute 71.7 kg 1.803 m Abiodun Castano, DO 10/27/2023 6:45 PM Signed [facility] Low Back Pain - Chronic (> 12 weeks) Initial Exam SUBJECTIVE HISTORY OF PRESENT ILLNESS: Edna A Toan is a 58 year old female who [...] 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 Normal [facility] - Chemistry and C hemistry - challengeon 10-07-2023 Cobalamin (Vitamin B12) [Mass/Vol] 913 pg/mL [facility] Ferritin [Mass/Vol] 87 ng/mL [facility] E2 [Mass/Vol]on 07-02-2023 ESTRADIOL <15.0 Normal [facility] Comment on above: Result Comment: [...] Performed By: #### 2 986-8, 2839-9, THYR, 05146-0, 81606-9, 2243-4 #### [facility] ([id number]) [address] [place] [address], [address] [place] [address] Follitropin Qnon 07-02-2023 FOLLICLE STIM HORMONE 54.8 mIU/mL Normal [facility] Comment on above: Result Comment: NORMAL FEMALE Luteal 1.8-5.1 mIU/mL Follicular 3.8-8.8 mIU/mL Mid Cycle 4.5-22.5 mIU/mL Post Shawna 16.7-113.6 mIU/mL Performed By: #### 2 986-8, 2839-9, THYR, 72272-1, 41411-0, 7913-4 #### [facility] ([id number]) [address] [place] [address], [address] [place] [address] Lutropin Qnon 07-02-2023 LUTEINIZING HORMONE 20.5 mIU/mL Normal [facility] Comment on above: Result Comment: NORMAL FEMALE Follicular 2.1-10.9 mIU/mL Mid Cycle 19.2-103 mIU/mL Luteal 1.2-12.9 mIU/mL Post Shawna 10.9-58.6 mIU/mL Performed By: #### 2 986-8, 2839-9, THYR, 43965-6, 14796-1, 2243-4 #### [facility] ([id number]) [address], [address] [place] [address] Progesterone [Mass/Vol]on PROGESTERONE <0.1 Normal [facility] Comment on above: Result Comment: FEMALES: 1st Tri: 4.7-50.7 ng/ml 2nd Tri: 19.4-45.3 ng/ml MENSTRUATING FEMALES: Follicular: 0.3-1.5 ng/ml Mid Luteal: 5.2-18.6 ng/ml Post [place]: <0.1-0.8 ng/ml Performed By: #### 2 986-8, 2839-9, THYR, 21105-0, 60929-3, 2243-4 #### [facility] ([id number]) [address], [address] [place] [address] THYROID PROFILEon 07-02-2023 Free T4 [Mass/Vol] 0.78 ng/dL Normal 0.61-1.60 [facility] Comment on above: Performed By: #### 2 986-8, 2839-9, THYR, 85509-2, 66028-7, 2243-4 #### [facility] ([id number]) [address], [address] [place] [address] TSH 1.25 uIU/mL Normal 0.49-4.67 [facility] Comment on above: Performed By: #### 2 986-8, 2839-9, THYR, 94023-3, 27719-0, 2243-4 #### [facility] ([id number]) [address], [address] [place] [address] Testosterone [Mass/Vol]on TESTOSTERONE 0.23 ng/mL Normal 0.00-0.70 [facility] Comment on above: Performed By: #### 2 986-8, 2839-9, THYR, 54069-9, 02685-1, 2243-4 #### [facility] ([id number]) [address], [address] [place] [address] Neurosurgery Office/Clinic N oteon 05-27-2023 Neurosurgery Office/Clinic Note Chief Complaint Back follow up-MRI @ [facility] 03/29 Physical Exam Vitals & Measurements HR: [...] attempted healthier diet from her previously standard [place] diet and noted significant improvement in sense [...] prompted her to visit a neurosurgeon at [facility]. An MRI was ordered and no surgical [...] as A (more content not included)... Normal [facility] Urinalysis - AUTOMATEDon Appearance (U) clear [employer] Other Bilirubin Ql (U) Negative [employer] Other Color (U) light yellow [employer] Other Glucose Ql (U) Negative [employer] Other Hemoglobin Ql (U) trace-intact [employer] Other Ketones Ql (U) Negative [employer] Other Leukocyte esterase Test strip Ql (U) Negative [employer] Other Nitrite Ql (U) Negative [employer] Other pH (U) 7.5 [pH] [employer] Other Protein Ql (U) Negative [employer] Other Specific gravity (U) [Rel density] 1.015 [employer] Other Urobilinogen (U) [Mass/Vol] 0.2 mg/dL [employer] Other Urinalysis - AUTOMATED [employer] Other MR lumbar spine wo conon MR lumbar spine wo con [facility] [employer] Other MR lumbar spine wo con [facility] [employer] Other MR lumbar spine wo con [address] [facility] [employer] Other MR lumbar spine wo con [place] [address] [employer] Other MR lumbar spine wo con XRay Report [employer] Other MR lumbar spine wo con Signed [employer] Other MR lumbar spine wo con Patient: Edna Sultana MR#: [id number] [employer] Other MR lumbar spine wo con 2916 [employer] Other MR lumbar spine wo con : 1965 Acct:[id number] [employer] Other MR lumbar spine wo con Age/Sex: 56 / F ADM Date: 08/28/22 [employer] Other MR lumbar spine wo con Loc: MR Room: Type: [facility] [employer] Other MR lumbar spine wo con Attending Dr: Yannick Velázquez DO [employer] Other MR lumbar spine wo con Copies to: Yannick Velázquez, [employer] Other MR lumbar spine wo con Ordering Provider: Yannick Velázquez DO [employer] Other MR lumbar spine wo con Date of Service: 08/28/22 [employer] Other MR lumbar spine wo con MR/MR lumbar spine wo con: M54.50 M48.0 M51.35 [employer] Other MR lumbar spine wo con ([id number]) XR/XR pre/post mri xray: PRE MRI OF THE LUMBAR [employer] Other MR lumbar spine wo con CLINICAL DATA: Chronic back pain with bilateral toe numbness. No injury. [employer] Other MR lumbar spine wo con PRE-MRI LUMBAR SPINE - 2 views [employer] Other MR lumbar spine wo con COMPARISON: 05/11/2020 [employer] Other MR lumbar spine wo con Standing AP and lateral views were obtained. 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 [employer] Other MR lumbar spine wo con There are no developing fractures. There is still slight retrolisthesis of L2 on L3, L3 on L4 and [employer] Other MR lumbar spine wo con L4 and L5. There is mild disc space narrowing and anterior endplate sclerosis at L2-3. There is [employer] Other MR lumbar spine wo con also some disc space narrowing at L3-4. Mild endplate spurring is seen. There is mid and lower [employer] Other MR lumbar spine wo con lumbar facet hypertrophy. The SI joints are intact. No paraspinal soft tissue abnormalities are [employer] Other MR lumbar spine wo con present. [employer] Other MR lumbar spine wo con XR/XR pre/post mri xray [employer] Other MR lumbar spine wo con IMPRESSION: [employer] Other MR lumbar spine wo con SCOLIOSIS AND DEGENERATIVE CHANGES, SIMILAR TO THE PRIOR. [employer] Other MR lumbar spine wo con MRI LUMBAR SPINE WITHOUT CONTRAST [employer] Other MR lumbar spine wo con Multiecho imaging in the axial and sagittal plane was performed without contrast. [employer] Other MR lumbar spine wo con There is levoscoliotic curvature. There is minimal retrolisthesis of L2 on L3, L3 on L4 and L4 and [employer] Other MR lumbar spine wo con L5. There are no acute compression fractures or marrow edema. There are degenerative endplate [employer] Other MR lumbar spine wo con signal changes, predominantly at L2-3 anteriorly. The conus medullaris terminates at T12-L1. The [employer] Other MR lumbar spine wo con lower imaged cord shows no significant findings. 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 No paraspinal soft tissue abnormalities are noted. [employer] Other MR lumbar spine wo con At T12-L1, there is no disc disease or stenosis. [employer] Other MR lumbar spine wo con At L1-2, there is slight disco-osteophytic bulging with mild thecal sac effacement. There is [employer] Other MR lumbar spine wo con asymmetric facet disease on the left. There is no significant foraminal stenosis. [employer] Other MR lumbar spine wo con At L2-3, there is prominent narrowing of the disc space. Disco-osteophytic bulging is noted. There [employer] Other MR lumbar spine wo con is increased signal at the annulus that may be a tear. There is bilateral facet hypertrophy with [employer] Other MR lumbar spine wo con joint effusion on the left. There is slight thickening of ligamentum flavum. There is continued [employer] Other MR lumbar spine wo con moderate thecal sac effacement. There is mild inferior foraminal encroachment. [employer] Other MR lumbar spine wo con At L3-4, there is narrowing of the disc space. Disco-osteophytic bulging is present. There is [employer] Other MR lumbar spine wo con bilateral facet disease and mild thickening of ligamentum flavum. There is mild to moderate thecal [employer] Other MR lumbar spine wo con sac effacement. There is mild to moderate right and moderate left foraminal impingement. [employer] Other MR lumbar spine wo con At L4-5, there is slight loss of disc height. Annular disc bulging is noted, slightly asymmetric [employer] Other MR lumbar spine wo con from the right parasagittal region extending laterally. There is increased signal at the annulus [employer] Other MR lumbar spine wo con that could be tear. There is bilateral facet hypertrophy and thickening of ligamentum flavum, [employer] Other MR lumbar spine wo con asymmetric on the left. Moderate central stenosis is again seen. There is moderate narrowing of [employer] Other MR lumbar spine wo con the neural foramen bilaterally. [employer] Other MR lumbar spine wo con At the lumbosacral junction, mild annular disc bulging is visualized. There is increased signal at [employer] Other MR lumbar spine wo con the annulus that could be tear. There is bilateral facet disease, greater on the left. There is [employer] Other MR lumbar spine wo con subtle thecal sac effacement. There is moderate neural foraminal narrowing, greater on the left. [employer] Other MR lumbar spine wo con LEVOSCOLIOSIS. [employer] Other MR lumbar spine wo con MULTILEVEL DISCOVERTEBRAL DEGENERATIVE CHANGES WITH ASSOCIATED CENTRAL AND FORAMINAL STENOSIS, [employer] Other MR lumbar spine wo con DESCRIBED. SIMILAR FINDINGS WERE PRESENT AT THE TIME OF THE COMPARISON. [employer] Other MR lumbar spine wo con Impression dictated by: Poppy Ashley M.D.08/28/2022 8:35 PM [employer] Other MR lumbar spine wo con Dictation Location: [facility] [employer] Other MR lumbar spine wo con Transcribed By: PWS 08/28/222034 [employer] Other MR lumbar spine wo con Dictated By: Poppy Ashley MD 08/28/222016 [employer] Other MR lumbar spine wo con Signed By: [employer] Other MR lumbar spine wo con 08/28/222034 [employer] Other XR ABD FLAT_UPon 07-04-2022 XR ABD FLAT_UP EXAMINATION: XR ABD FLAT_UP HISTORY: Slow transit constipation COMPARISON: No relevant comparison available. FINDINGS: BOWEL GAS PATTERN: Non-obstructed. FREE AIR: None. CALCIFICATIONS: None significant. 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 IMPRESSION: Nonobstructive bowel gas pattern with normal amount of stool Electronically authenticated by: YANNICK REA Date: 2022-07-04 07:30 Normal [facility] CULTURE URINEon 07-03-2022 CULTURE URINE Culture Observations : NO GROWTH. Normal [facility] Comment on above: Performed By: #### U RCX #### [facility] [address] [place] [address] Dr. Rene De Jesus UA RANDOMon 07-03-2022 Bilirubin Ql (U) Negative Normal NEGATIVE [facility] Comment on above: Performed By: #### U A #### [facility] [address] [place] [address] Dr. Rene De Jesus Clarity (U) CLEAR Normal CLEAR [facility] Comment on above: Performed By: #### U A #### [facility] [address] [place] [address] Dr. Rene De Jesus Color (U) LT. YELLOW Normal YELLOW [facility] Comment on above: Performed By: #### U A #### [facility] [address] [place] [address] Dr. Rene De Jesus Glucose Ql (U) Negative Normal NEGATIVE [facility] Comment on above: Performed By: #### U A #### [facility] [address] [place] [address] Dr. Rene De Jesus Hemoglobin Ql (U) Negative Normal NEGATIVE [facility] Comment on above: Performed By: #### U A #### [facility] [address] [place] [address] Dr. Rene De Jesus Ketones Ql (U) Negative Normal NEGATIVE [facility] Comment on above: Performed By: #### U A #### [facility] [address] [place] [address] Dr. Rene De Jesus LEUKOCYTES Negative Normal NEGATIVE [facility] Comment on above: Performed By: #### U A #### [facility] [address] [place] [address] Dr. Rene De Jesus Nitrite Ql (U) Negative Normal NEGATIVE [facility] Comment on above: Performed By: #### U A #### [facility] [address] [place] [address] Dr. Rene De Jesus pH (U) 8.0 [pH] Normal 5-9 [facility] Comment on above: Performed By: #### U A #### [facility] [address] [place] [address] Dr. Rene De Jesus SPEC GRAVITY 1.010 Normal 1.005-<=1.02 5 [facility] Comment on above: Performed By: #### U A #### [facility] [address] [place] [address] Dr. Rene De Jesus UA PROTEIN Negative Normal NEGATIVE/ TRACE [facility] Comment on above: Performed By: #### U A #### [facility] [address] [place] [address] Dr. Rene De Jesus Urobilinogen Qn (U) 0.2 {Raman'U}/dL Normal 0.2 - 1. 0 [facility] Comment on above: Performed By: #### U A #### [facility] [address] [place] [address] Dr. Rene De Jesus CBC AUTO DIFFon 03-20-2022 BASO # 0.0 103/ul Normal 0.0-0.1 [facility] Comment on above: Performed By: #### C BC #### [facility] [address] [place] [address] Dr. Rene De Jesus Basophils/100 WBC (Bld) 0.8 % Normal 0.2-2.0 [facility] Comment on above: Performed By: #### C BC #### [facility] [address] [place] [address] Dr. Rene De Jesus EO # 0.1 103/ul Normal 0.0-0.7 [facility] Comment on above: Performed By: #### C BC #### [facility] [address] [place] [address] Dr. Rene De Jesus Eosinophils/100 WBC (Bld) 1.3 % Normal 0.9-7.0 [facility] Comment on above: Performed By: #### C BC #### [facility] [address] [place] [address] Dr. Rene De Jesus Erythrocyte distribution width (RBC) [Ratio] 13.1 % Normal 11.0-15.0 [facility] Comment on above: Performed By: #### C BC #### [facility] [address] [place] [address] Dr. Rene De Jesus Hematocrit (Bld) [Volume fraction] 40.9 % Normal 36.0-48.0 [facility] Comment on above: Performed By: #### C BC #### [facility] [address] [place] [address] Dr. Rene De Jesus Hemoglobin (Bld) [Mass/Vol] 13.2 g/dL Normal 12.0-16.0 [facility] Comment on above: Performed By: #### C BC #### [facility] [address] [place] [address] Dr. Rene De Jesus IG # 0.01 10e3/ul Normal 0.00-0.03 [facility] Comment on above: Performed By: #### C BC #### [facility] [address] [place] [address] Dr. Rene De Jesus IG % 0.2 % Normal 0.0-0.5 [facility] Comment on above: Performed By: #### C BC #### [facility] [address] [place] [address] [address] Rene De Jesus LYMPH # 2.4 103/ul Normal 1.2-3.8 [facility] Comment on above: Performed By: #### C BC #### [facility] [address] [place] [address] [address] Rene De Jesus Lymphocytes/100 WBC (Bld) 44.5 % Normal 20.5-60.0 [facility] Comment on above: Performed By: #### C BC #### [facility] [address] [place] [address] Dr. Rene De Jesus MANUAL DIFF REQ NO Normal [facility] Comment on above: Performed By: #### C BC #### [facility] [address] [place] [address] Dr. Rene De Jesus MCH (RBC) [Entitic mass] 29.2 pg Normal 26.7-34.0 [facility] Comment on above: Performed By: #### C BC #### [facility] [address] [place] [address] Dr. Rene De Jesus MCHC (RBC) [Mass/Vol] 32.3 g/dL Normal 29.9-35.2 [facility] Comment on above: Performed By: #### C BC #### [facility] [address] [place] [address] Dr. Rene De Jesus MCV (RBC) [Entitic vol] 90.5 fL Normal 81.0-99.0 [facility] Comment on above: Performed By: #### C BC #### [facility] [address] [place] [address] Dr. Rene De Jesus MONO # 0.6 103/ul Normal 0.3-0.8 [facility] Comment on above: Performed By: #### C BC #### [facility] [address] [place] [address] Dr. Rene De Jesus Monocytes/100 WBC (Bld) 12.1 % Critically high 1.7-12.0 [facility] Comment on above: Performed By: #### C BC #### [facility] [address] [address] [address] Rene De Jesus NEUT # 2.2 103/ul Normal 1.4-6.5 [facility] Comment on above: Performed By: #### C BC #### [facility] [address] [place] [address] Dr. Rene De Jesus Neutrophils/100 WBC (Bld) 41.1 % Critically low 43.0-75.0 [facility] Comment on above: Performed By: #### C BC #### [facility] [address] [place] [address] Dr. Rene De Jesus Platelet mean volume (Bld) [Entitic vol] 10.5 fL Normal 9.5-13.5 [facility] Comment on above: Performed By: #### C BC #### [facility] [address] [place] [address] Dr. Rene De Jesus PLT 263 103/ul Normal 150-450 [facility] Comment on above: Performed By: #### C BC #### [facility] [address] [place] [address] Dr. Rene De Jesus RBC 4.52 106/ul Normal 4.20-5.40 [facility] Comment on above: Performed By: #### C BC #### [facility] [address] [place] [address] Dr. Rene De Jesus WBC 5.3 103/ul Normal 4.0-11.0 [facility] Comment on above: Performed By: #### C BC #### [facility] [address] [place] [address] Dr. Rene De Jesus PROF 14(COMP METB)on 022 Albumin [Mass/Vol] 3.9 g/dL Normal 3.4-5.0 [facility] Comment on above: Performed By: #### T SH, CMP #### [facility] [address] [place] [address] Dr. Rene De Jesus Albumin/Globulin [Mass ratio] 1.2 {ratio} Normal [facility] Comment on above: Performed By: #### T SH, CMP #### [facility] [address] [address] [address] Rene De Jesus ALP [Catalytic activity/Vol] 71 U/L Normal 46-116 [facility] Comment on above: Performed By: #### T SH, CMP #### [facility] [address] [address] [address] Rene De Jesus ALT [Catalytic activity/Vol] 21 U/L Normal 14-59 [facility] Comment on above: Performed By: #### T SH, CMP #### [facility] [address] [address] [address] Rene De Jesus Anion gap [Moles/Vol] 11.3 mmol/L Normal [facility] Comment on above: Performed By: #### T SH, CMP #### [facility] [address] [place] [address] Dr. Rene De Jesus AST [Catalytic activity/Vol] 15 U/L Normal 15-37 [facility] Comment on above: Performed By: #### T SH, CMP #### [facility] [address] [place] [address] Dr. Rene De Jesus Bilirubin [Mass/Vol] 0.3 mg/dL Normal 0.2-1.0 [facility] Comment on above: Performed By: #### T SH, CMP #### [facility] [address] [place] [address] Dr. Rene De Jesus Calcium [Mass/Vol] 8.9 mg/dL Normal 8.5-10.1 [facility] Comment on above: Performed By: #### T SH, CMP #### [facility] [address] [place] [address] Dr. Rene De Jesus Chloride [Moles/Vol] 102 mmol/L Normal 98-107 [facility] Comment on above: Performed By: #### T SH, CMP #### [facility] [address] [address] [address] Rene De Jesus CO2 [Moles/Vol] 30.7 mmol/L Normal 21.0-32.0 [facility] Comment on above: Performed By: #### T SH, CMP #### [facility] [address] [place] [address] Dr. Rene De Jesus Creatinine [Mass/Vol] 0.69 mg/dL Normal 0.55-1.02 [facility] Comment on above: Performed By: #### T SH, CMP #### [facility] [address] [place] [address] Dr. Rene De Jesus EGFR-AF GUATEMALAN >60 Normal >=60 [facility] Comment on above: Performed By: #### T SH, CMP #### [facility] [address] [address] [address] Rene De Jesus EGFR-NON AF GUATEMALAN >60 Normal >=60 [facility] Comment on above: Performed By: #### T SH, CMP #### [facility] [address] [place] [address] Dr. Rene De Jesus Globulin (S) [Mass/Vol] 3.3 g/dL Normal [facility] Comment on above: Performed By: #### T SH, CMP #### [facility] [address] [place] [address] Dr. Rene De Jesus Glucose [Mass/Vol] 96 mg/dL Normal 74-106 [facility] Comment on above: Performed By: #### T SH, CMP #### [facility] [address] [place] [address] Dr. Rene De Jesus Potassium [Moles/Vol] 4.0 mmol/L Normal 3.5-5.1 [facility] Comment on above: Performed By: #### T SH, CMP #### [facility] [address] [place] [address] Dr. Rene De Jesus Protein [Mass/Vol] 7.2 g/dL Normal 6.4-8.2 [facility] Comment on above: Performed By: #### T SH, CMP #### [facility] [address] [place] [address] Dr. Rene De Jesus Sodium [Moles/Vol] 140 mmol/L Normal 136-145 [facility] Comment on above: Performed By: #### T SH, CMP #### [facility] [address] [place], [place] [address] Dr. Rene De Jesus Urea nitrogen [Mass/Vol] 18.0 mg/dL Normal 7.0-18.0 [facility] Comment on above: Performed By: #### T SH, CMP #### [facility] [address] [place], [place] [address] Dr. Rene De Jesus Urea nitrogen/Creatinine [Mass ratio] 26.1 mg/mg Normal [facility] Comment on above: Performed By: #### T ZEN, CMP #### [facility] [address] [place], [place] [address] Dr. Rene De Jesus TSHon 03-20-2022 TSH 2.033 uIU/mL Normal 0.358-3.740 [facility] Comment on above: Performed By: #### T ZEN, CMP #### [facility] [address] [place], [place] [address] Dr. Rene De Jesus XR foot RT min 3V*on 022 XR foot RT min 3V* [facility] [employer] Other XR foot RT min 3V* [facility] [employer] Other XR foot RT min 3V* [address] [place] [address] [employer] Other XR foot RT min 3V* [place] [address] [employer] Other XR foot RT min 3V* XRay Report [employer] Other XR foot RT min 3V* Signed [employer] Other XR foot RT min 3V* Patient: Edna Sultana MR#: [id number] [employer] Other XR foot RT min 3V* 2916 [employer] Other XR foot RT min 3V* : 1965 Acct:[id number] [employer] Other XR foot RT min 3V* Age/Sex: 56 / F ADM Date: 01/28/22 [employer] Other XR foot RT min 3V* Loc: XDUCLY Room: Type: REG CLI [employer] Other XR foot RT min 3V* Attending Dr: Shara Cutler [facility] [employer] Other XR foot RT min 3V* Copies to: SHARA CUTLER [facility] [employer] Other XR foot RT min 3V* Ordering Provider: SHARA CUTLER [facility] [employer] Other XR foot RT min 3V* Date of Service: 01/28/22 [employer] Other XR foot RT min 3V* XR/XR foot RT min 3V*: Injury of right foot, initial encounter [employer] Other XR foot RT min 3V* 3 viewsRIGHT foot plain film [employer] Other XR foot RT min 3V* COMPARISON:None [facility] Other XR foot RT min 3V* HISTORY:RIGHT foot injury. [employer] Other XR foot RT min 3V* No acute fracture, dislocation or focal soft tissue abnormality seen. Chronic deformity of the 5th [employer] Other XR foot RT min 3V* metatarsal identified. [employer] Other XR foot RT min 3V* XR/XR foot RT min 3V* [employer] Other XR foot RT min 3V* IMPRESSION:No acute findings [employer] Other XR foot RT min 3V* Impression dictated by: Lukas Nicole M.D.01/28/2022 3:27 PM [employer] Other XR foot RT min 3V* Dictation Location: RADIO-PC-03 [facility] [employer] Other XR foot RT min 3V* Transcribed By: RODERICK 01/28/22 1529 [facility] [employer] Other XR foot RT min 3V* Dictated By: Lukas Nicole DO 01/28/22 1528 [facility] [employer] Other XR foot RT min 3V* Signed By: [employer] Other XR foot RT min 3V* 01/28/22 1520 [facility] [employer] Other CT ABD/PELVIS WO CONon 08-01 CT [...] MARGO ELLIOTT Date: 2021-08-01 02:33 Normal [facility] ER URINE PROFILEon 2 Bilirubin Ql (U) Negative Normal NEGATIVE [facility] Comment on above: Performed By: #### E RUR #### [facility] [address] [place] [address] Dr. Rene De Jesus Clarity (U) CLEAR Normal CLEAR [facility] Comment on above: Performed By: #### E RUR #### [facility] [address] [place] [address] Dr. Rene De Jesus Color (U) YELLOW Normal YELLOW [facility] Comment on above: Performed By: #### E RUR #### [facility] [address] [place] [address] Dr. Rene SOLOMON A micrscopic examination will be performed if indicated. Normal [facility] Comment on above: Performed By: #### E RUR #### [facility] [address] [place] [address] Dr. Rene De Jesus Glucose Ql (U) Negative Normal NEGATIVE [facility] Comment on above: Performed By: #### E RUR #### [facility] [address] [place] [address] Dr. Rene De Jesus Hemoglobin Ql (U) Negative Normal NEGATIVE [facility] Comment on above: Performed By: #### E RUR #### [facility] [address] [place] [address] Dr. Rene De Jesus Ketones Ql (U) Negative Normal NEGATIVE [facility] Comment on above: Performed By: #### E RUR #### [facility] [address] [place] [address] Dr. Rene De Jesus LEUKOCYTES Negative Normal NEGATIVE [facility] Comment on above: Performed By: #### E RUR #### [facility] [address] [place] [address] Dr. Rene De Jesus Nitrite Ql (U) Negative Normal NEGATIVE [facility] Comment on above: Performed By: #### E RUR #### [facility] [address] [place] [address] Dr. Rene De Jesus pH (U) 7.5 [pH] Normal 5-9 [facility] Comment on above: Performed By: #### E RUR #### [facility] [address] [address] [address] Rene De Jesus SPEC GRAVITY 1.015 Normal 1.005-<=1.02 5 [facility] Comment on above: Performed By: #### E RUR #### [facility] [address] [place] [address] Dr. Rene De Jesus UA PROTEIN Negative Normal NEGATIVE/ TRACE [facility] Comment on above: Performed By: #### E RUR #### [facility] [address] [address] [address] Rene De Jesus UR MICRO IND NOT INDICATED Normal [facility] Comment on above: Performed By: #### E RUR #### [facility] [address] [place] [address] Dr. Rene De Jesus Urobilinogen Qn (U) 0.2 {Raman'U}/dL Normal 0.2 - 1. 0 [facility] Comment on above: Performed By: #### E RUR #### [facility] [address] [place] [address] Dr. Rene De Jesus Otheron 09-06-2020 BILIRUBIN UA (POCT) Negative Negative [facility] CLARITY UA (POCT) Clear [facility] COLOR UA (POCT) Yellow [facility] GLUCOSE UA (POCT) Negative Negative mg/dL [facility] HEMOGLOBIN/BLOOD UA (POCT) Negative Negative [facility] KETONE UA (POCT) Negative Negative mg/dL [facility] LEUKOCYTES UA (POCT) Negative Negative [facility] NITRITE UA (POCT) Negative Negative [facility] PH UA (POCT) 8.5 Abnormal 4.5 - 8.0 [facility] Protein Ql (U) Negative Negative mg/dL [facility] SPECIFIC GRAVITY UA (POCT) 1.020 1.005 - 1.030 [facility] UROBILINOGEN UA (POCT) 0.2 E.U./dL Normal E.U./dL [facility] ANTI-SSAon 01-19-2019 ANTI-SSA <0.2 Normal [facility] Comment on above: Result Comment: REF VALUES < 1.0 = NEGATIVE >=1.0 = POSITIVE Performed By: #### A -SSA #### [facility] [address] [place] [address] ANTI-SSBon 01-19-2019 ANTI-SSB <0.2 Normal [facility] Comment on above: Result Comment: REF VALUES < 1.0 = NEGATIVE >=1.0 = POSITIVE Performed By: #### A -SSB #### [facility] [address] [place] [address] C-REACTIVE PROTEINon 019 CRP [Mass/Vol] 0.13 mg/dL Normal [facility] Comment on above: Result Comment: REF VALUE < 1.00 Performed By: #### C RP #### [facility] [address] [place] [address] SEDIMENTATION RATE, ERYTHROC YTEon 01-19-2019 SEDIMENTATION RATE, ERYTHROCYTE 3 mm/h Normal 0 - 30 [facility] Comment on above: Performed By: #### E SRWS #### [facility] [address] [place] [address] Vital Signs Date Time Vital Sign Value Performing Clinician Facility 06-01-2024 08:53-0500 Body height 179.1 cm Katia Whitt MD Work Phone: [facility] 06-01-2024 08:53-0500 Body mass index (BMI) [Ratio] 21.87 kg/m2 Katia Whitt MD Work Phone: [facility] 06-01-2024 08:53-0500 Body weight 70.13 kg Katia Whitt MD Work Phone: [facility] 05-31-2024 13:29-0500 Body height 177.8 cm Ivy Garcia FINISH OFF OPERATOR Work Phone: [facility] 05-31-2024 13:29-0500 Body mass index (BMI) [Ratio] 22.1 kg/m2 Ivy Garcia FINISH OFF OPERATOR Work Phone: [facility] 05-31-2024 13:29-0500 Body weight 69.85 kg Ivy Garcia FINISH OFF OPERATOR Work Phone: [facility] 05-31-2024 13:29-0500 Diastolic blood pressure 96 mm[Hg] Ivy Solismor FINISH OFF OPERATOR Work Phone: [facility] 05-31-2024 13:29-0500 Heart rate 106 /min Ivy Irmamor FINISH OFF OPERATOR Work Phone: [facility] 05-31-2024 13:29-0500 Systolic blood pressure 154 mm[Hg] Ivy Solismor FINISH OFF OPERATOR Work Phone: [facility] 05-18-2024 15:17-0500 Body height 179.1 cm [facility] 05-18-2024 15:17-0500 Body mass index (BMI) [Ratio] 21.36 kg/m2 [facility] 05-18-2024 15:17-0500 Body weight 68.49 kg [facility] 05-18-2024 15:17-0500 Diastolic blood pressure 84 mm[Hg] [facility] 05-18-2024 15:17-0500 Systolic blood pressure 124 mm[Hg] [facility] 04-20-2024 13:18-0400 Blood Pressure Location Florentin NILL [facility] 04-20-2024 13:18-0400 Diastolic blood pressure 106 mm[Hg] Florentin NILL [facility] 04-20-2024 13:18-0400 Heart rate 72 /min Florentin NILL [facility] 04-20-2024 13:18-0400 Respiratory rate 16 /min Florentin NILL [facility] 04-20-2024 13:18-0400 Systolic blood pressure 144 mm[Hg] Florentin NILL [facility] 04-15-2024 11:02-0400 Body height 177.8 cm Suzanne Gee DO Work Phone: [facility] 04-15-2024 11:02-0400 Body mass index (BMI) [Ratio] 22.1 kg/m2 Suzanne Marlen DO Work Phone: [facility] 04-15-2024 11:02-0400 Body weight 69.85 kg Suzanne Marlen DO Work Phone: [facility] 04-15-2024 11:02-0400 Diastolic blood pressure 86 mm[Hg] Suzanne Marlen DO Work Phone: [facility] 04-15-2024 11:02-0400 Heart rate 83 /min Suzanne Marlen DO Work Phone: [facility] 04-15-2024 11:02-0400 SaO2% (BldA) [Mass fraction] 98 % Suzanne Marlen DO Work Phone: [facility] 04-15-2024 11:02-0400 Systolic blood pressure 134 mm[Hg] Suzanne Marlen DO Work Phone: [facility] 03-24-2024 15:02-0400 Body height 177.16 cm [facility] 03-24-2024 15:02-0400 Body mass index (BMI) [Ratio] 22.5 kg/m2 [facility] 03-24-2024 15:02-0400 Body temperature 97.3 [degF] [place] 03-24-2024 15:02-0400 Body weight 70.76 kg [facility] 03-24-2024 15:02-0400 Diastolic blood pressure 80 mm[Hg] [facility] 03-24-2024 15:02-0400 Heart rate 77 /min [facility] 03-24-2024 15:02-0400 SaO2% (BldA) [Mass fraction] 98 % [facility] 03-24-2024 15:02-0400 Systolic blood pressure 124 mm[Hg] [facility] 03-23-2024 14:54-0400 Body height 180.3 cm Janna Gilman MD Work Phone: [facility] 03-23-2024 14:54-0400 Body mass index (BMI) [Ratio] 21.59 kg/m2 Janna Gilman MD Work Phone: [facility] 03-23-2024 14:54-0400 Body weight 70.2 kg Janna Gilman MD Work Phone: [facility] 03-23-2024 14:54-0400 Diastolic blood pressure 92 mm[Hg] Janna Gilman MD Work Phone: [facility] 03-23-2024 14:54-0400 Heart rate 95 /min Janna Gilman MD Work Phone: [facility] 03-23-2024 14:54-0400 SaO2% (BldA) [Mass fraction] 100 % Janna Gilman MD Work Phone: [facility] 03-23-2024 14:54-0400 Systolic blood pressure 156 mm[Hg] Janna Gilman MD Work Phone: [facility] 12-24-2023 10:31-0400 Body height 177.16 cm [facility] 12-24-2023 10:31-0400 Body mass index (BMI) [Ratio] 21.8 kg/m2 [facility] 12-24-2023 10:31-0400 Body temperature 98.1 [degF] [place] 12-24-2023 10:31-0400 Body weight 68.49 kg [facility] 12-24-2023 10:31-0400 Diastolic blood pressure 82 mm[Hg] [facility] 12-24-2023 10:31-0400 Heart rate 87 /min [facility] 12-24-2023 10:31-0400 SaO2% (BldA) [Mass fraction] 97 % [facility] 12-24-2023 10:31-0400 Systolic blood pressure 136 mm[Hg] [facility] 12-12-2023 10:35-0400 Body height 180.3 cm Abiodun Castano DO Work Phone: [facility] 12-12-2023 10:35-0400 Body mass index (BMI) [Ratio] 22.04 kg/m2 Abiodun Langleyry DO Work Phone: [facility] 12-12-2023 10:35-0400 Body weight 71.67 kg Abiodun Langleyry DO Work Phone: [facility] 12-12-2023 10:35-0400 Respiratory rate 12 /min Abiodun Langleyry DO Work Phone: [facility] 10-21-2023 08:07-0400 Body height 180.3 cm Abiodun Langleyry DO Work Phone: [facility] 10-21-2023 08:07-0400 Body mass index (BMI) [Ratio] 22.04 kg/m2 Abiodun Langleyry DO Work Phone: [facility] 10-21-2023 08:07-0400 Body weight 71.67 kg Abiodun Langleyry DO Work Phone: [facility] 10-21-2023 08:07-0400 Respiratory rate 12 /min Abiodun Langleyry DO Work Phone: [facility] 09-30-2023 10:22-0400 Body height 179.1 cm [facility] 09-30-2023 10:22-0400 Body mass index (BMI) [Ratio] 22.48 kg/m2 [facility] 09-30-2023 10:22-0400 Body weight 72.12 kg [facility] 09-30-2023 10:22-0400 Diastolic blood pressure 64 mm[Hg] [facility] 09-30-2023 10:22-0400 Systolic blood pressure 120 mm[Hg] [facility] 05-22-2023 11:30-0500 Body height 177.16 cm Yannick Velázquez Other [employer] Other 05-22-2023 11:30-0500 Body mass index (BMI) [Ratio] 22.4 kg/m2 Yannick Velázquez Other [employer] Other 05-22-2023 11:30-0500 Body temperature 98.5 [degF] Yannick Johnnakaren Other [employer] Other 05-22-2023 11:30-0500 Body weight 70.31 kg Yannick Johnnakaren Other [employer] Other 05-22-2023 11:30-0500 Diastolic blood pressure 88 mm[Hg] Yannick Velázquez Other [employer] Other 05-22-2023 11:30-0500 Respiratory rate 18 /min Yannick Velázquez Other [employer] Other 05-22-2023 11:30-0500 SaO2% (BldA) [Mass fraction] 98 % Yannick Velázquez Other [employer] Other 05-22-2023 11:30-0500 Systolic blood pressure 138 mm[Hg] Yannick Johnnakaren Other [employer] Other 03-19-2023 15:20-0400 Body height 177.16 cm Victorina Blades Other [employer] Other 03-19-2023 15:20-0400 Body mass index (BMI) [Ratio] 23.26 kg/m2 Victorina Blades Other [facility] Other 03-19-2023 15:20-0400 Body weight 73.03 kg Victorina Blades Other [employer] Other 03-19-2023 15:20-0400 Diastolic blood pressure 84 mm[Hg] Victorina Blades Other [employer] Other 03-19-2023 15:20-0400 Systolic blood pressure 130 mm[Hg] Victorina Blades Other [employer] Other 02-23-2023 13:27-0400 Body height 177.8 cm DO Yannick Velázquez Work Phone: [facility] 02-23-2023 13:27-0400 Body temperature 99 [degF] DO Yannick Velázquez Work Phone: [facility] 02-23-2023 13:27-0400 Body weight 72.05 kg DO Yannick Velázquez Work Phone: [facility] 02-23-2023 13:27-0400 Diastolic blood pressure 95 mm[Hg] DO Yannick Velázquez Work Phone: [facility] 02-23-2023 13:27-0400 Heart rate 101 /min DO Yannick Velázquez Work Phone: [facility] 02-23-2023 13:27-0400 Respiratory rate 18 /min DO Yannick Velázquez Work Phone: [facility] 02-23-2023 13:27-0400 SaO2% (BldA) [Mass fraction] 98 % DO Yannick Velázquez Work Phone: [facility] 02-23-2023 13:27-0400 Systolic blood pressure 152 mm[Hg] DO Yannick Velázquez Work Phone: [facility] 02-12-2023 10:00-0400 Body height 177.16 cm Victorina Blades Other [facility] Other 02-12-2023 10:00-0400 Body mass index (BMI) [Ratio] 23.41 kg/m2 Victorina Blades Other [facility] Other 02-12-2023 10:00-0400 Body weight 73.48 kg Victorina Blades Other [facility] Other 02-12-2023 10:00-0400 Diastolic blood pressure 82 mm[Hg] Victorina Blades Other [facility] Other 02-12-2023 10:00-0400 Systolic blood pressure 120 mm[Hg] Victorina Blades Other [facility] Other 01-21-2023 09:10-0400 Body height 177.16 cm Tonia Sandoval Other [employer] Other 01-21-2023 09:10-0400 Body mass index (BMI) [Ratio] 23.84 kg/m2 Tonia Sandoval Other [employer] Other 01-21-2023 09:10-0400 Body temperature 97.6 [degF] Tonia Sandoval Other [facility] Other 01-21-2023 09:10-0400 Body weight 74.84 kg Tonia Sandoval Other [facility] Other 01-21-2023 09:10-0400 Diastolic blood pressure 88 mm[Hg] Tonia Sandoval Other [facility] Other 01-21-2023 09:10-0400 Respiratory rate 18 /min Tonia Sandoval Other [facility] Other 01-21-2023 09:10-0400 SaO2% (BldA) [Mass fraction] 99 % Tonia Sandoval Other [facility] Other 01-21-2023 09:10-0400 Systolic blood pressure 125 mm[Hg] Tonia Sandoval Other [facility] Other 12-20-2022 08:10-0400 Body height 177.16 cm Yannick Velázquez Other [facility] Other 12-20-2022 08:10-0400 Body mass index (BMI) [Ratio] 23.55 kg/m2 Yannick Velázquez Other [facility] Other 12-20-2022 08:10-0400 Body temperature 98.6 [degF] Yannick Velázquez Other [facility] Other 12-20-2022 08:10-0400 Body weight 73.94 kg Yannick Velázquez Other [facility] Other 12-20-2022 08:10-0400 Diastolic blood pressure 70 mm[Hg] Yannick Velázquez Other [facility] Other 12-20-2022 08:10-0400 Respiratory rate 20 /min Yannick Velázquez Other [facility] Other 12-20-2022 08:10-0400 SaO2% (BldA) [Mass fraction] 97 % Yannick Velázquez Other [facility] Other 12-20-2022 08:10-0400 Systolic blood pressure 110 mm[Hg] Yannick Velázquez Other [facility] Other 07-19-2022 13:30-0500 Body height 177.16 cm Yannick Velázquez Other [facility] Other 07-19-2022 13:30-0500 Body mass index (BMI) [Ratio] 24.2 kg/m2 Yannick Velázquez Other [facility] Other 07-19-2022 13:30-0500 Body temperature 97.8 [degF] Yannick Velázquez Other [facility] Other 07-19-2022 13:30-0500 Body weight 75.98 kg Yannick Velázquez Other [facility] Other 07-19-2022 13:30-0500 Diastolic blood pressure 82 mm[Hg] Yannick Velázquez Other [facility] Other 07-19-2022 13:30-0500 Respiratory rate 18 /min Yannick Velázquez Other [facility] Other 07-19-2022 13:30-0500 SaO2% (BldA) [Mass fraction] 97 % Yannick Velázquez Other [facility] Other 07-19-2022 13:30-0500 Systolic blood pressure 116 mm[Hg] Yannick Velázquez Other [facility] Other 06-24-2022 15:40-0500 Body height 177.16 cm Yannick Velázquez Other [facility] Other 01-28-2022 14:45-0400 Body height 177.16 cm Shara He Other [facility] Other 01-28-2022 14:45-0400 Body mass index (BMI) [Ratio] 24.71 kg/m2 Shara Cutler Other [facility] Other 01-28-2022 14:45-0400 Body temperature 98.5 [degF] Shara Cutler Other [facility] Other 01-28-2022 14:45-0400 Body weight 77.57 kg Shara Cutler Other [facility] Other 01-28-2022 14:45-0400 Diastolic blood pressure 79 mm[Hg] Shara Cutler Other [facility] Other 01-28-2022 14:45-0400 Respiratory rate 18 /min Shara Cutler Other [facility] Other 01-28-2022 14:45-0400 SaO2% (BldA) [Mass fraction] 99 % Shara Cutler Other [facility] Other 01-28-2022 14:45-0400 Systolic blood pressure 111 mm[Hg] Shara Cutler Other [facility] Other 01-09-2022 15:20-0400 Body height 177.16 cm Yannick Velázquez Other [facility] Other 01-09-2022 15:20-0400 Body mass index (BMI) [Ratio] 25 kg/m2 Yannick Velázquez Other [facility] Other 01-09-2022 15:20-0400 Body temperature 98.1 [degF] Yannick Velázquez Other [facility] Other 01-09-2022 15:20-0400 Body weight 78.47 kg Yannick Velázquez Other [facility] Other 01-09-2022 15:20-0400 Diastolic blood pressure 76 mm[Hg] Yannick Velázquez Other [facility] Other 01-09-2022 15:20-0400 Respiratory rate 18 /min Yannick Velázquez Other [facility] Other 01-09-2022 15:20-0400 SaO2% (BldA) [Mass fraction] 97 % Yannick Velázquez Other [facility] Other 01-09-2022 15:20-0400 Systolic blood pressure 120 mm[Hg] Yannick Velázquez Other [facility] Other 09-10-2021 12:10-0500 Body height 177.16 cm Yannick Velázquez Other [facility] Other 09-10-2021 12:10-0500 Body mass index (BMI) [Ratio] 24.42 kg/m2 Yannick Velázquez Other [facility] Other 09-10-2021 12:10-0500 Body temperature 97.9 [degF] Yannick Velázquez Other [facility] Other 09-10-2021 12:10-0500 Body weight 76.66 kg Yannick Velázquez Other [facility] Other 09-10-2021 12:10-0500 Diastolic blood pressure 80 mm[Hg] Yannick Velázquez Other [facility] Other 09-10-2021 12:10-0500 Respiratory rate 16 /min Yannick Velázquez Other [facility] Other 09-10-2021 12:10-0500 SaO2% (BldA) [Mass fraction] 97 % Yannick Velázquez Other [facility] Other 09-10-2021 12:10-0500 Systolic blood pressure 118 mm[Hg] Yannick Velázquez Other [facility] Other 06-11-2021 12:10-0500 Body height 177.16 cm Yannick Velázquez Other [facility] Other 06-11-2021 12:10-0500 Body mass index (BMI) [Ratio] 23.34 kg/m2 Yannick Velázquez Other [facility] Other 06-11-2021 12:10-0500 Body temperature 97.6 [degF] Yannick Johnnakaren Other [facility] Other 06-11-2021 12:10-0500 Body weight 73.26 kg Yannick Gisel Other [facility] Other 06-11-2021 12:10-0500 Diastolic blood pressure 88 mm[Hg] Yannick Johnnakaren Other [facility] Other 06-11-2021 12:10-0500 Respiratory rate 18 /min Yannick Gisel Other [facility] Other 06-11-2021 12:10-0500 SaO2% (BldA) [Mass fraction] 99 % Yannick Velázquez Other [facility] Other 06-11-2021 12:10-0500 Systolic blood pressure 122 mm[Hg] Yannick Velázquez Other [facility] Other 09-06-2020 13:39-0500 Body weight 70.76 kg [facility] 09-06-2020 13:39-0500 Height 180.3 cm [facility] Encounters Encounter Date Encounter Type Care Provider Facility Start: 07-01-2024 End: 07-01-2024 ambulatory AKBAR JACKSON [facility] Start: 06-24-2024 End: 06-24-2024 ambulatory Yannick Velázquez Facility:[facility] Start: 06-23-2024 End: 06-23-2024 ambulatory AYNNICK C [facility] Start: 06-17-2024 End: 06-17-2024 ambulatory [facility] Start: 06-11-2024 End: 06-11-2024 ambulatory Janna Gilman MD Work Phone: Neurology Comment on above: MRI result Start: 06-11-2024 End: 06-11-2024 E-mail encounter from caregiver Janna Gilman MD Work Phone: Neurology Start: 06-10-2024 End: 06-10-2024 Subsequent hospital visit by physician Mri [facility] Cookie (1.5t) Work Phone: Radiology Comment on above: 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] Start: 06-01-2024 End: 06-01-2024 Office outpatient visit 15 minutes Katia Whitt MD Work Phone: [facility] Obstetrics/Gynecology Comment on above: Vaginal lesion (Prim armida Dx) Start: 06-01-2024 End: 06-01-2024 ambulatory [facility] Start: 05-31-2024 End: 05-31-2024 Bamboo flowsheet Ivy Garcia FINISH OFF OPERATOR Work Phone: [facility] [employer] [address] Start: 05-31-2024 End: 05-31-2024 Bamboo flowsheet Ivy Irmamor FINISH OFF OPERATOR Work Phone: [facility] [address] Start: 05-31-2024 End: 05-31-2024 Office outpatient visit 25 minutes Ivy Garcia FINISH OFF OPERATOR Work Phone: [facility] [employer] [address] Comment on above: Restless legs (Prima ry Dx); Benign fasciculation-cramp syndrome; Hypersomnia; PLMD (periodic limb movement disorder); Chronic low back pain, unspecified back pain laterality, unspecified whether sciatica present; Sleep disturbance Start: 05-31-2024 End: 05-31-2024 ambulatory IVY GARCIA Not Available Start: 05-31-2024 End: 05-31-2024 ambulatory AKBAR KRBIANCA [facility] Start: 05-18-2024 End: 05-18-2024 ambulatory AKBAR RODRÍGUEZABDOULAYE [facility] Start: 05-18-2024 End: 05-18-2024 [facility] Start: 05-18-2024 Encounter for gynecological examination (general) (routine) without abnormal findings YANNICK [facility] Start: 05-18-2024 End: 05-18-2024 Patient encounter procedure [facility] Agitator Operator [facility] Start: 05-18-2024 End: 05-18-2024 Periodic preventive med est patient 40-64yrs [facility] Ob Agitator Operator [facility] [place] Comment on above: Well woman exam with routine gynecological exam (Primary Dx); Urinary urgency; Screening for osteoporosis; Postmenopausal; Hx of osteopenia; Vaginal atrophy Start: 05-10-2024 End: 05-13-2024 Clinisync Result Encounter Generic External Data Provider [facility] External Department Unsolicited Start: 05-10-2024 End: 05-13-2024 Clinisync Result Encounter Generic External Data Provider [facility] External Department Unsolicited Start: 05-04-2024 End: 05-06-2024 Get Medical Advice Janna Gilman MD Work Phone: Neurology Comment on above: Order for MRI Start: 04-20-2024 End: 04-20-2024 ambulatory Yannick Tran Johnnakaren Facility:[facility] Start: 04-20-2024 End: 04-20-2024 Patient encounter procedure Florentin NEVILLE [facility] [place] Start: 04-15-2024 End: 04-15-2024 Bamboo flowsheet Suzanne Gee DO Work Phone: [facility] Start: 04-15-2024 End: 04-15-2024 Bamboo flowsheet Suzanne Gee DO Work Phone: [facility] Start: 04-15-2024 End: 04-15-2024 Office outpatient visit 25 minutes Suzanne Gee DO Work Phone: [facility] NE[facility] Comment on above: AB (obstructive sle ep apnea) (Primary Dx); Hypersomnia; Sleep disturbance; Catathrenia; Sleep talking Start: 04-15-2024 End: 04-15-2024 ambulatory SUZANNE GEE Not Available Start: 03-25-2024 ambulatory Yannick Oropezakaren Facility:[facility] Start: 03-24-2024 End: 03-24-2024 ambulatory [facility] Work Phone: Start: 03-24-2024 End: 03-24-2024 Patient encounter procedure [facility] Work Phone: Start: 03-23-2024 Non-patient / Non-visit [facility] Work Phone: [...] Neurology Start: 02-04-2024 End: 02-04-2024 ambulatory REZA H SHERIF Not Available Start: 01-07-2024 End: 01-07-2024 ambulatory AKBAR JACKSON [facility] Start: 12-24-2023 End: 12-24-2023 ambulatory [facility] Work Phone: Start: 12-24-2023 End: 12-24-2023 Patient encounter procedure [facility] Work Phone: Start: 12-12-2023 End: 12-12-2023 ambulatory ABIODUN CASTANO Facility:[facility] Start: 12-12-2023 End: 12-12-2023 Patient encounter procedure Abiodun Langleyry DO Work Phone: [facility] [place] Comment on above: Fasciculation (Prima ry Dx); Hyperreflexia; Degeneration of lumbar or lumbosacral intervertebral disc Start: 12-09-2023 End: 12-09-2023 ambulatory Abiodun Castano DO Work Phone: [facility] [place] Comment on above: MRI brain cervical t horacic Start: 12-09-2023 E-mail encounter fro m caregiver Abiodun Laureanochary DO Work Phone: [facility] [place] Start: 12-09-2023 End: 12-09-2023 Subsequent hospital visit by physician [facility] (1.5t) Work Phone: Radiology Comment on above: 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 ] Start: 11-12-2023 Non-patient / Non-visit [facility] Work Phone: Start: 11-10-2023 End: 11-10-2023 ambulatory [facility] Work Phone: Start: 11-10-2023 End: 11-10-2023 Patient encounter procedure [facility] Work Phone: Start: 11-06-2023 Telephone encounter Abiodun [facility] Arpita calabrese DO Work Phone: [facility] [place] Comment on above: MRI Appointment Start: 11-05-2023 Telephone encounter Abioduncandi calabrese DO Work Phone: [facility] [place] Start: 10-28-2023 Telephone encounter Abiodun [facility] Arpita calabrese DO Work Phone: [facility] [place] Comment on above: MRI Appointment; Fol low Up Start: 10-25-2023 Non-patient / Non-visit [facility] Work Phone: Start: 10-23-2023 ambulatory Abiodun [facility] Srideviludmila blanca DO Work Phone: [facility] Start: 10-23-2023 Patient encounter procedure Abioduncandi Castano DO Work Phone: [facility] Comment on above: Today's Appointment Start: 10-21-2023 End: 10-21-2023 ambulatory ABIODUN CASTANO Facility:[facility] Start: 10-21-2023 End: 10-21-2023 Patient encounter procedure Abiodun Castano DO Work Phone: [facility] Comment on above: Lumbar radiculopathy (Primary Dx); Hyperreflexia; Cardiac murmur; Fasciculation; Neuromuscular scoliosis of thoracic region; Chiari I malformation (HCC); Spinal stenosis of cervical region; Syringomyelia and syringobulbia (HCC); Demyelinating disease of central nervous system (HCC) Start: 10-07-2023 Non-patient / Non-visit [facility] Work Phone: Start: 09-30-2023 End: 09-30-2023 ambulatory YANNICK VELÁZQUEZ [facility] Start: 09-30-2023 End: 09-30-2023 Office outpatient visit 15 minutes [facility] Agitator Operator [place] [facility] Certified Nurse Agitator Operator - [employer] [place] Comment on above: PMB (postmenopausal bleeding) (Primary Dx); Vaginal atrophy Start: 09-24-2023 Non-patient / Non-visit [facility] [employer] Work Phone: Start: 09-17-2023 End: 09-17-2023 ambulatory [facility] Work Phone: Start: 09-17-2023 End: 09-17-2023 Patient encounter procedure [facility] Work Phone: Start: 07-30-2023 End: 07-30-2023 ambulatory REZA GORMAN Not Available Start: 07-02-2023 End: 07-02-2023 [facility] Start: 06-17-2023 End: 06-17-2023 ambulatory Yannick Velázquez Other [facility] [employer] Other Start: 06-17-2023 Office outpatient vi sit 15 minutes Yannick Velázquez [facility] [place] Start: 05-27-2023 End: 05-28-2023 ambulatory Yannick Velázquez DO Facility:[facility] Start: 05-23-2023 End: 05-23-2023 ambulatory Yannick Oropezakaren Other [facility] Other Start: 05-23-2023 Telephone encounter Yannick Velázquez [facility] [place] Start: 05-22-2023 End: 05-22-2023 ambulatory Yannick Velázquez Other [facility] Other Start: 05-22-2023 Office outpatient vi sit 25 minutes Yannick Velázquez [facility] [place] Start: 04-29-2023 End: 04-29-2023 ambulatory Yannick Oropezakaren Other [facility] Other Start: 04-29-2023 Telephone encounter Yannick Velázquez [facility] [place] Start: 04-16-2023 End: 04-16-2023 ambulatory Yannick Velázquez Other [facility] Other Start: 04-16-2023 Telephone encounter Yannick Oropezakaren [facility] [place] Start: 04-15-2023 End: 04-15-2023 ambulatory Yannick Oropezakaren Other [facility] Other Start: 04-15-2023 Telephone encounter Yannick Velázquez [facility] [place] Start: 04-02-2023 End: 04-02-2023 ambulatory Yannick Velázquez Other [facility] Other Start: 04-02-2023 Telephone encounter Yannick Velázquez [facility] [place] Start: 03-19-2023 End: 03-19-2023 ambulatory Victorina Martinez Other [facility] Other Start: 03-19-2023 Office outpatient vi sit 15 minutes Victorina Martinez [facility] Neuro[facility] Start: 03-13-2023 End: 03-13-2023 ambulatory Yannick Velázquez Other [facility] Other Start: 03-13-2023 Telephone encounter Yannick Velázquez [facility] Start: 03-05-2023 End: 03-05-2023 ambulatory Yannick Velázquez Other [facility] Other Start: 03-05-2023 Telephone encounter Yannick Velázquez [facility] Start: 03-03-2023 End: 03-03-2023 ambulatory Yannick Velázquez Other [facility] Other Start: 03-03-2023 Telephone encounter Yannick Velázquez [facility] Start: 02-27-2023 End: 02-27-2023 ambulatory DO Yannick Oropezakaren Work Phone: [facility] Work Phone: Start: 02-27-2023 End: 02-27-2023 Patient encounter procedure DO Yannick Velázquez Work Phone: [facility]-MRI [facility] [place] Work Phone: Start: 02-23-2023 End: 02-23-2023 Emergency department patient visit DO Yannick Velázquez Work Phone: [facility]-Emergency Room Work Phone: Start: 02-14-2023 End: 02-14-2023 ambulatory Victorina Blades Other [facility] Other Start: 02-14-2023 Telephone encounter Victorina Blades [facility] Start: 02-12-2023 End: 02-12-2023 ambulatory Victorina Blades Other [facility] Other Start: 02-12-2023 Office outpatient vi sit 15 minutes Victorina Blades [facility] Neurosurgery Start: 02-10-2023 End: 02-10-2023 ambulatory Yannick Velázquez Other [facility] Other Start: 02-10-2023 Telephone encounter Yannick Velázquez [facility] [place] Start: 02-05-2023 End: 02-05-2023 ambulatory Yannick Velázquez Other [facility] Other Start: 02-05-2023 Telephone encounter Yannick Velázquez [facility] [place] Start: 01-21-2023 End: 01-21-2023 ambulatory Tonia Jaime Other [facility] Other Start: 01-21-2023 Office outpatient vi sit 25 minutes Tonia Sandoval [facility] [place] Start: 01-08-2023 End: 01-08-2023 ambulatory Yannick Velázquez Other [facility] Other Start: 01-08-2023 Telephone encounter Yannick Velázquez [facility] [place] Start: 01-03-2023 End: 01-03-2023 ambulatory Yannick Velázquez Other [facility] Other Start: 01-03-2023 Telephone encounter Yannick Velázquez [facility] [place] Start: 01-02-2023 Telephone encounter Yannick Velázquez [facility] [place] Start: 01-02-2023 End: 01-02-2023 ambulatory DO Yannick Velázquez Work Phone: [facility] Work Phone: Start: 01-02-2023 End: 01-02-2023 Patient encounter procedure DO Yannick Velázquez Work Phone: [facility]-Ultrasound [facility] [place] Work Phone: Start: 12-20-2022 End: 12-20-2022 ambulatory Yannick Velázquez Other [facility] Other Start: 12-20-2022 Office outpatient vi sit 25 minutes Yannick Velázquez [facility] [place] Start: 09-24-2022 End: 09-24-2022 ambulatory Victorina Martinez Other [facility] Other Start: 09-24-2022 Telephone encounter Victorina Andino [facility] 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 Start: 09-16-2022 End: 09-16-2022 ambulatory Yannick Velázquez Other [facility] Other Start: 09-16-2022 Office outpatient vi sit 10 minutes Yannick Velázquez [facility] [place] Start: 09-16-2022 Telephone encounter Yannick Velázquez [facility] [place] Start: 08-29-2022 End: 08-29-2022 ambulatory Yannick Velázquez Other [facility] Other Start: 08-29-2022 Telephone encounter Yannick Velázquez [facility] [place] Start: 08-28-2022 End: 08-28-2022 ambulatory DO Yannick Velázquez Work Phone: [facility] Work Phone: Start: 08-28-2022 End: 08-28-2022 Patient encounter procedure DO Yannick Velázquez Work Phone: [facility] [place] Work Phone: Start: 08-07-2022 End: 08-07-2022 ambulatory Yannick Velázquez Other [facility] Other Start: 08-07-2022 Telephone encounter Yannick Velázquez [facility] [place] Start: 07-24-2022 End: 07-24-2022 ambulatory Yannick Velázquez Other [facility] Other Start: 07-24-2022 Telephone encounter Yannick Velázquez [facility] [place] Start: 07-19-2022 End: 07-19-2022 ambulatory Yannick Velázquez Other [facility] Other Start: 07-19-2022 Office outpatient vi sit 25 minutes Yannick Velázquez [facility] [place] Start: 07-03-2022 End: 07-04-[address] YANNICK VELÁZQUEZ Facility:[facility] Start: 07-03-2022 Telephone encounter Yannick Velázquez [facility] [place] Start: 06-24-2022 End: 06-24-2022 ambulatory Yannick Velázquez Other [facility] Other Start: 06-24-2022 Office outpatient vi sit 15 minutes Yannick Velázquez [facility] [place] Start: 06-24-2022 Telephone encounter Yannick Velázquez [facility] [place] Start: 05-29-2022 End: 05-29-2022 ambulatory Yannick Velázquez Other [facility] Other Start: 05-29-2022 Telephone encounter Yannick Velázquez [facility] [place] Start: 05-09-2022 End: 05-09-2022 ambulatory Yannick Velázquez Other [facility] Other Start: 05-09-2022 Telephone encounter Yannick Velázquez [facility] [place] Start: 04-10-2022 End: 04-10-2022 ambulatory Yannick Velázquez Other [facility] Other Start: 04-10-2022 Office outpatient vi sit 15 minutes Yannick Velázquez [facility] [place] Start: 03-26-2022 End: 03-26-2022 ambulatory Yannick Velázquez Other [facility] Other Start: 03-26-2022 Office outpatient vi sit 15 minutes Yannick Velázquez [facility] [place] Start: 03-20-2022 End: 03-21-[address] YANNICK VELÁZQUEZ Facility:[facility] Start: 02-15-2022 End: 02-15-2022 ambulatory Yannick Velázquez Other [facility] Other Start: 02-15-2022 Telephone encounter Yannick Velázquez [facility] [place] Start: 01-28-2022 End: 01-28-2022 Patient encounter procedure OTOLOGIST-C Shara Cutler Work Phone: [facility] [place] Start: 01-28-2022 End: 01-28-2022 ambulatory Shara He Other [facility] Other Start: 01-28-2022 Office outpatient vi sit 15 minutes Shara He [facility] [place] Start: 01-11-2022 End: 01-11-2022 ambulatory Yannick Velázquez Other [facility] Other Start: 01-11-2022 Telephone encounter Yannick Velázquez [facility] [place] Start: 01-10-2022 End: 01-11-[address] YANNICK VELÁZQUEZ Facility: Start: 01-09-2022 End: 01-09-2022 ambulatory Yannick Velázquez Other [facility] Other Start: 01-09-2022 Office outpatient vi sit 15 minutes Yannick Velázquez [facility] [place] Start: 01-08-2022 End: 01-08-2022 ambulatory Yannick Velázquez Other [facility] Other Start: 01-08-2022 Telephone encounter Yannick Velázquez [facility] [place] Start: 12-24-2021 End: 12-24-2021 ambulatory Yannick Velázquez Other [facility] Other Start: 12-24-2021 Telephone encounter Yannick Velázquez [facility] [place] Start: 12-11-2021 End: 12-11-2021 ambulatory Yannick Velázquez Other [facility] Other Start: 12-11-2021 Office outpatient vi sit 15 minutes Yannick Velázquez [facility] [place] Start: 12-11-2021 Telephone encounter Yannick Velázquez [facility] [place] Start: 09-10-2021 End: 09-10-2021 ambulatory Yannick Velázquez Other [facility] Other Start: 09-10-2021 Office outpatient vi sit 15 minutes Yannick Velázquez [facility] Start: 08-01-2021 End: 08-01-[address] YANNICK VELÁZQUEZ Facility: Start: 06-11-2021 End: 06-11-2021 ambulatory Yannick Velázquez Other [facility] Other Start: 06-11-2021 Office outpatient vi sit 15 minutes Yannick Velázquez [facility] Start: 09-06-2020 End: 09-06-2020 Patient encounter procedure David Chavira Keane Work Phone: Urology Comment on above: Dysuria; Cystocele with prolapse; Nocturia Procedures Date Procedure Procedure Detail Performing Clinician Start: 06-10-2024 Mri brain brain stem w/o w/contrast material Janna Gilman MD Work Phone: Start: 05-10-2024 Bacteria identified in Urine by Culture Generic External Data Provider Start: 01-07-[address] 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 Start: 01-28-2022 X-ray of right foot OTOLOGIST -C Shara Cutler Work Phone: Start: 09-06-2020 Urnls dip stick/tabl et rgnt auto w/o microscopy David Puentesman Work Phone: Start: 02-17-2020 Cystoscopy Florentin PEREZ section Florentin WONG L Excision of bunion Florentin MATTSON Ligation of fallopian tube Shani NEVILLE Lysis of adhesions Florentin MATTSON Tonsillectomy Florentin NEVILLE Plan of Treatment Date Care Activity Detail Author Start: 12-19-2026 DTaP,Tdap and Td Vac cines (2 - Td or Tdap) DTaP,Tdap and Td Vaccines (2 - Td or Tdap) [facility] Start: 12-19-2026 Urine microalbumin profile DTaP,Tdap,Td Vaccine (2 - Td or Tdap) [facility] Start: 06-01-2025 Adult BMI Screening Adult BMI Screen ing [facility] Start: 06-01-2025 Tobacco Screening Tobacco Screening [facility] Start: 05-22-2025 Screening for malign ant neoplasm of cervix Pap Smear [facility] Start: 05-18-2025 Adult BMI Screening Adult BMI Screen ing [facility] Start: 05-18-2025 Tobacco Screening Tobacco Screening [facility] Start: 01-06-2025 Screening for malign ant neoplasm of breast [facility] Start: 09-29-2024 Adult BMI Screening Adult BMI Screen ing [facility] Start: 09-29-2024 Tobacco Screening Tobacco Screening [facility] Start: 08-31-2024 End: 08-31-2024 Patient encounter procedure 08/31/2024 3:45 PM EST Office Visit [facility] [address] [place] [address] Katia Whitt MD [address] [place], [place] [id number] [facility] Start: 08-19-2024 End: 08-19-2024 Patient encounter procedure 08/19/2024 3:00 PM EST Office Visit [facility] [address] [place] [address] Ivy Garcia NP [address] [place] [facility] [address] Start: 08-04-2024 End: 08-04-2024 Patient encounter procedure 08/04/2024 3:20 PM EST Office Visit [facility] [address] [facility] [address] [place], [place] [id number] Reza Gorman MD [address] [facility] [address] [place] [address] [facility] Start: 06-11-2024 End: 06-11-2024 Patient encounter procedure 06/11/2024 2:30 PM EST Appointment [facility] Nuclear Medicine [address] [place] [address] [facility] Nuclear Medicine Start: 06-07-2024 End: 06-07-2025 MR Lumbar spine WO contrast MR lumbar spine wo contrast Imaging Routine Benign fasciculation-cramp syndrome Chronic low back pain, unspecified back pain laterality, unspecified whether sciatica present Expected: 06/07/2024 (Approximate), Expires: 06/07/2025 [facility] Comment on above: Expected: 06/07/2024 (Approximate), Expires: 06/07/2025 Start: 06-01-2024 End: 06-01-2025 US Pelvis transabdominal and transvaginal Ultrasound pelvic with transvaginal Imaging Routine Vaginal lesion Expected: 06/01/2024, Expires: 06/01/2025 [facility] Work Phone: Comment on above: Expected: 06/01/2024 , Expires: 06/01/2025 Start: 06-01-2024 End: 06-01-2024 Patient encounter procedure 06/01/2024 9:00 AM EST Procedure visit [facility] [address] [place] [id number] Katia Whitt MD [address] [place], [place] [id number] [facility] Obstetric[facility]necolo gy Start: 05-31-2024 End: 05-31-2025 Basic metabolic 1998 panel - Serum or Plasma Basic metabolic panel Lab Routine Restless legs Benign fasciculation-cramp syndrome Expected: 05/31/2024 (Approximate), Expires: 05/31/2025 [facility] Comment on above: Expected: 05/31/2024 (Approximate), Expires: 05/31/2025 Start: 05-31-2024 End: 05-31-2025 Ferritin [Mass/volume] in Serum or Plasma Ferritin Lab Routine Restless legs Benign fasciculation-cramp syndrome Expected: 05/31/2024 (Approximate), Expires: 05/31/2025 [facility] Comment on above: Expected: 05/31/2024 (Approximate), Expires: 05/31/2025 Start: 05-31-2024 End: 05-31-2025 Magnesium [Mass/volume] in Serum or Plasma Magnesium Lab Routine Restless legs Benign fasciculation-cramp syndrome Expected: 05/31/2024 (Approximate), Expires: 05/31/2025 [facility] Comment on above: Expected: 05/31/2024 (Approximate), Expires: 05/31/2025 Start: 05-31-2024 End: 05-31-2025 Niacin (vitamin B3) Niacin (vitamin B3) Lab Routine Restless legs Benign fasciculation-cramp syndrome Expected: 05/31/2024 (Approximate), Expires: 05/31/2025 [facility] Comment on above: Expected: 05/31/2024 (Approximate), Expires: 05/31/2025 Start: 05-31-2024 End: 05-31-2025 Phosphate [Moles/volume] in Serum or Plasma Phosphorus Lab Routine Restless legs Benign fasciculation-cramp syndrome Expected: 05/31/2024 (Approximate), Expires: 05/31/2025 [facility] Comment on above: Expected: 05/31/2024 (Approximate), Expires: 05/31/2025 Start: 05-31-2024 End: 05-31-2025 Protein electrophoresis, serum Protein electrophoresis, serum Lab Routine Restless legs Benign fasciculation-cramp syndrome Expected: 05/31/2024 (Approximate), Expires: 05/31/2025 [facility] Comment on above: Expected: 05/31/2024 (Approximate), Expires: 05/31/2025 Start: 05-31-2024 End: 05-31-2025 Thyrotropin [Units/volume] in Serum or Plasma TSH Lab Routine Restless legs Benign fasciculation-cramp syndrome Expected: 05/31/2024 (Approximate), Expires: 05/31/2025 [facility] Work Phone: Comment on above: Expected: 05/31/2024 (Approximate), Expires: 05/31/2025 Start: 05-31-2024 End: 05-31-2025 Vitamin B1 Vitamin B1 Lab Routine Restless legs Benign fasciculation-cramp syndrome Expected: 05/31/2024 (Approximate), Expires: 05/31/2025 [facility] Comment on above: Expected: 05/31/2024 (Approximate), Expires: 05/31/2025 Start: 05-31-2024 End: 05-31-2025 VITAMIN B12/FOLATE, SERUM PANEL VITAMIN B12/FOLATE, SERUM PANEL Lab Routine Restless legs Benign fasciculation-cramp syndrome Expected: 05/31/2024 (Approximate), Expires: 05/31/2025 [facility] Comment on above: Expected: 05/31/2024 (Approximate), Expires: 05/31/2025 Start: 05-31-2024 End: 05-31-2025 Vitamin B6 Vitamin B6 Lab Routine Restless legs Benign fasciculation-cramp syndrome Expected: 05/31/2024 (Approximate), Expires: 05/31/2025 [facility] Comment on above: Expected: 05/31/2024 (Approximate), Expires: 05/31/2025 Start: 05-31-2024 End: 05-31-2024 Patient encounter procedure [facility] Comment on above: Arrived Start: 05-25-2024 End: 05-25-2024 Patient encounter procedure 05/25/2024 2:30 PM EST Office Visit [facility] [place] [address] [place] [address] [facility] [place] Start: 05-18-2024 End: 05-18-2025 Bacteria identified in Urine by Culture Urine Culture Microbiology Routine Urinary urgency Expected: 05/18/2024 (Approximate), Expires: 05/18/2025 [facility]: Comment on above: Expected: 05/18/2024 (Approximate), Expires: 05/18/2025 Start: 05-18-2024 End: 05-18-2025 DXA Skeletal system Views for bone density Dexa scan central skeletal Imaging Routine Screening for osteoporosis Postmenopausal Hx of osteopenia Expected: 05/18/2024, Expires: 05/18/2025 [facility] Comment on above: Expected: 05/18/2024 , Expires: 05/18/2025 Start: 04-15-2024 End: 04-15-2025 Multiple sleep latency test Multiple sleep latency test Sleep Center Routine Hypersomnia Sleep disturbance Catathrenia Sleep talking Expected: 04/15/2024 (Approximate), Expires: 04/15/2025 [facility] Comment on above: Expected: 04/15/2024 (Approximate), Expires: 04/15/2025 Start: 04-15-2024 End: 04-15-2025 Polysomnography Polysomnography Sleep Center Routine AB (obstructive sleep apnea) Expected: 04/15/2024 (Approximate), Expires: 04/15/2025 [facility] Work Phone: Comment on above: Expected: 04/15/2024 (Approximate), Expires: 04/15/2025 Start: 04-15-2024 End: 04-15-2024 Patient encounter procedure 04/15/2024 11:00 AM EDT Office Visit [facility] [address] [facility] [address] [place] [id number] Suzanne Gee DO [address] [place] [address] [facility] [address] [facility] Comment on above: Arrived Start: 03-24-2024 Patient referral [facility] Work Phone: Start: 03-23-2024 End: 03-23-2024 Patient encounter procedure 03/23/2024 3:00 PM EDT Office Visit Neurology [address] [place], [place] [id number] Janna Gilman MD [address] [place], [place] [id number] CONSULT TO NEUROLOGY Neurology Comment on above: CONSULT TO NEUROLOGY Start: 03-23-2024 End: 06-22-2024 CELIAC SCREEN WITH REFLEX [facility] Work Phone: Comment on above: Expected: 03/23/2024 , Expires: 06/22/2024 Start: 03-23-2024 End: 06-22-2024 Ceruloplasmin [Mass/volume] in Serum or Plasma [facility] Comment on above: Expected: 03/23/2024 , Expires: 06/22/2024 Start: 03-23-2024 End: 06-22-2024 COPPER BLOOD [facility] Comment on above: Expected: 03/23/2024 , Expires: 06/22/2024 Start: 03-23-2024 End: 06-22-2024 IMMUNOFIXATION SCREEN, SERUM [facility] Comment on above: Expected: 03/23/2024 , Expires: 06/22/2024 Start: 03-23-2024 End: 06-22-2024 KAPPA/SORIANO,FREE,SER [facility] Comment on above: Expected: 03/23/2024 , Expires: 06/22/2024 Start: 03-23-2024 End: 06-22-2024 Zinc [Mass/volume] in Serum or Plasma [facility] Comment on above: Expected: 03/23/2024 , Expires: 06/22/2024 Start: 03-07-2024 Covid-19 Vaccine (1 - 2023-24 season) Covid-19 Vaccine ( season) [facility] Start: 03-07-2024 Covid-19 Vaccine ( season) Covid-19 Vaccine () [facility] Start: 03-07-2024 Influenza vaccination C [facility] Start: 01-05-2024 End: 01-05-2024 Patient encounter procedure 01/05/2024 9:00 AM EDT Appointment [facility] - Mammogram DEXA [address] [place] [address] [facility] - Mammogram DEXA Start: 01-03-2024 Screening for malign ant neoplasm of breast Mammogram Screening [facility] Start: 12-12-2023 End: 12-12-2023 Patient encounter procedure 12/12/2023 10:50 AM EDT Office Visit [facility] [id number] [place] [id number] [place] [address] [place] [address] mri (3) follow up [facility] Comment on above: mri (3) follow up Start: 12-09-2023 End: 12-09-2023 Patient encounter procedure 12/09/2023 10:40 AM EDT Appointment Radiology [address] [place] [address] 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] Radiology Comment on above: 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 ] Start: 12-09-2023 End: 12-09-2023 Patient encounter procedure Radiology Comment on above: 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 ] Start: 11-25-2023 End: 11-25-2023 Patient encounter procedure 11/25/2023 2:10 PM EDT Office Visit [facility] [address] [place] [address] [place] [address] [place] [address] MRI follow ups [facility] Comment on above: MRI follow ups Start: 11-16-2023 End: 11-16-2023 Patient encounter procedure 11/16/2023 1:20 PM EDT Appointment [facility] [place] [address] [place] [address] 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]; Demyelinating disease of central nervous system (HCC) [G37.9] [facility] MRI Comment on above: 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 ]; Demyelinating disease of central nervous system (HCC) [G37.9] Start: 11-16-2023 End: 11-16-2023 Patient encounter procedure [facility] MRI Comment on above: 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 ]; Demyelinating disease of central nervous system (HCC) [G37.9] Start: 09-30-2023 End: 09-29-2024 US Pelvis transabdominal and transvaginal Ultrasound pelvic with transvaginal Imaging Routine PMB (postmenopausal bleeding) Expected: 09/30/2023, Expires: 09/29/2024 [employer] Work Phone: Comment on above: Expected: 09/30/2023 , Expires: 09/29/2024 Start: 07-07-2023 Behavioral Health Screening Behavioral Health Screening [facility] Start: 03-07-2023 Covid-19 Vaccine ( season) Covid-19 Vaccine ( season) [facility] Start: 03-07-2023 Influenza vaccination Influenza Vacc ine [facility] Start: 03-07-2020 Influenza vaccination INFLUENZA (#1) [facility] Start: 2016 Administration of varicella zoster vaccine Zoster (Shingles) Vaccine (1 of 2) [facility] Start: 2016 Screening for malign ant neoplasm of colon [facility] Start: 2016 SHINGRIX VACCINE (1 of 2) PATEL GRIX VACCINE (1 of 2) [facility] Start: 10-11-2011 DIABETES [facility]CREEN [facility] Start: 10-11-2011 Diabetes Screening Diabetes Screenin g [facility] Start: 10-11-2011 Lipid panel Lipid Screening [facility] Start: 10-11-2011 LIPID SCREEN LIPID SCREEN [facility] Start: 10-11-2011 Screening for malign ant neoplasm of colon [facility] Start: 2006 Mammography MAMMOGRAM [facility] Start: 1996 HPV TESTING HPV TESTING [facility] Start: 1996 Screening for malign ant neoplasm of cervix HPV Testing [facility] Start: 10-11-1987 PAP TESTING PAP TESTING [facility] Start: 10-11-1987 Screening for malign ant neoplasm of cervix [facility] Start: 1985 Hepatitis B Vaccine (1 of 3 - 19+ 3-dose series) Hepatitis B Vaccine (1 of 3 - 19+ 3-dose series) [facility] Start: 1985 Urine microalbumin profile DTAP,TDAP,TD (1 - Tdap) [facility] Start: 1984 Anxiety Screening Anxiety Screening [facility] Start: 1984 Depression Screening Depression Scre ening [facility] Start: 1984 HEPATITIS C SCREENING HEPATITIS C [facility] Start: 1984 Hepatitis C screening Hepatitis C [facility] Start: 1984 HIV SCREENING HIV SCREENING [facility] Start: 1984 HIV screening HIV Screening [facility] Start: 1978 Adult depression screening assessment DEPRESSION SCREENING [facility] Comprehensive metabo lic 2000 panel - Serum or Plasma [facility] End: 06-05-2025 MR Brain WO and W contrast IV MRI BRAIN WO/W IVCON Radiology Routine Brain cyst 1 Occurrences starting 05/06/2024 until 06/05/2025 [facility] Work Phone: Comment on above: 1 Occurrences starti ng 05/06/2024 until 06/05/2025 End: 11-25-2024 MR Brain WO contrast MRI BRAIN WO IVCON Radiology Routine Hyperreflexia Demyelinating disease of central nervous system (HCC) 1 Occurrences starting 10/27/2023 until 11/25/2024 [facility] Comment on above: 1 Occurrences starti ng 10/27/2023 until 11/25/2024 End: 11-25-2024 MR Cervical spine WO contrast MRI CERVICAL SPINE WO IVCON Radiology Routine Hyperreflexia Neuromuscular scoliosis of thoracic region Chiari I malformation (HCC) Spinal stenosis of cervical region Syringomyelia and syringobulbia (HCC) Demyelinating disease of central nervous system (HCC) 1 Occurrences starting 10/27/2023 until 11/25/2024 [facility] Work Phone: Comment on above: 1 Occurrences starti ng 10/27/2023 until 11/25/2024 End: 11-25-2024 MR Thoracic spine WO contrast MRI THORACIC SPINE WO IVCON Radiology Routine 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) Demyelinating disease of central nervous system (HCC) 1 Occurrences starting 10/27/2023 until 11/25/2024 [facility] Comment on above: 1 Occurrences starti ng 10/27/2023 until 11/25/2024 Patient Education Radiculopathy (DC) [facility] Work Phone: Patient referral [facility] Work Phone: T3 reverse measurement [facility] End: 05-18-2025 Urinalysis Urinalysis Lab Routine Urinary urgency 1 Occurrences starting 05/18/2024 until 05/18/2025 [facility] Comment on above: 1 Occurrences starti ng 05/18/2024 until 05/18/2025 [place] Immunizations Immunization Date Immunization Notes Care Provider Sindy sorensen 12-19-2016 tetanus toxoid, reduced diphtheria toxoid, and acellular pertussis vaccine, adsorbed Yannick Velázquez Other [facility] NEGATED: Highlighted row has not occurred!06-11-2021 influenza, seasonal, injectable Patient Objection Yannick Velázquez Other [facility] Payers Date Payer Category Payer Self-pay [id number] 2014 Commercial Managed C [facility] [employer] [id number] 2014 Private Health Insurance [employer] [id number] 2014 Unknown 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 [id number] 2014-Present PPO [id number] 2014 Unknown 1966 Unknown [id number] 2.16.840.1.223115.3.579.2. 593 1966 Unknown [id number] 2.16840.1.664111.3.579.2. 593 1966 Unknown [id number] 2.16840.1.410766.3.579.2. 593 1966 Unknown [id number] 2.16840.1.041931.3.579.2. 593 1966 Unknown [id number] 2.16840.1.606166.3.579.2. 196 1966 Unknown [id number] 2.16840.1.017229.3.579.2. 1286 1966 Unknown [id number] 2.16840.1.993636.3.579.2. 727 1966 Unknown [id number] 2.16840.1.026316.3.579.2. 1285 1966 Unknown [id number] 2.16840.1.695357.3.579.2. 1258 1966 Unknown [id number] 2.16.840.1.123633.3.579.2. 1258 1966 Unknown [id number] 2.16.840.1.787554.3.579.2. 1258 1966 Unknown [id number] 2.16840.1.649668.3.579.2. 1258 1966 Unknown [id number] 2.840.1.613944.3.579.2. 1285 1966 Unknown [id number] 2.840.1.238638.3.579.2. 1285 1966 Unknown [id number] 2.840.1.091890.3.579.2. 1285 1966 Unknown [id number] 2.840.1.117888.3.579.2. 1285 1966 Unknown [id number] 2.840.1.488801.3.579.2. 1285 1966 Unknown [id number] 2.840.1.104183.3.579.2. 1285 1966 Unknown [id number] 2.840.1.241574.3.579.2. 1285 1966 Unknown [id number] 2.840.1.484633.3.579.2. 1285 1966 Unknown [id number] 2.840.1.727740.3.579.2. 128 1959 Unknown [id number] 2.840.1.034179.19 Unknown [id number] 2.840.1.551933.3.579.2. 531 Social History Date Type Detail Facility Start: 09-06-2020 End: 10-21-2023 Tobacco smoking status NHIS Never smoker [facility] Start: 09-06-2020 End: 10-21-2023 Tobacco use and exposure Never used [facility] Start: 09-06-2020 End: 03-23-2024 Alcohol intake Current drinker of alcohol (finding) [facility] Start: 09-06-2020 End: 12-12-2023 Alcohol intake [facility] Start: 1965 Sex Assigned At Female [facility] Exposure to SARS-CoV -2 (event) Not sure [facility] Start: 07-02-2018 End: 12-12-2023 Sex Assigned At [facility] Frequency of Alcohol Consumption Never [facility] Start: 05-08-2022 Alcohol Comment twice a month [facility] Start: 1965 Sex Assigned At Not on file [facility] Start: 09-06-2020 Gender identity Identifies as female gender (finding) [facility] Start: 09-06-2020 Sexual orientation Heterosexual (finding) [facility] Start: 03-23-2024 Alcohol Comment 1x/week [facility] How often to you hav e a drink containing alcohol? Monthly or less [facility] Start: 02-04-2024 Alcohol Comment Socially [facility] Start: 02-09-2015 Sex Female (finding) [facility] Functional Status Date Assessment Result Facility 04-20-2024 Functional Status N/A [facility] Clinical Notes 06-11-2021 to 06-10-2024 Suzanna Gary, RT(R) - 06/10/2024 11:20 AM Brigid Whitt MD - 06/01/2024 9:00 AM Ernie Garcia NP - 05/31/2024 1:40 PM PIPPA Odonnell - 05/18/2024 3:15 PM EST Note Date & Type Note Facility 06-10-2024 History of Present illness Narrative Radiology Service Progress Note DATE OF SERVICE: June 10, 2024 TIME: 10:13 AM PATIENT IDENTITY VERIFICATION COMPLETED USING TWO [...] PATIENT PRESENTS WITH AN IMPLANTABLE OR ATTACHED WINDOW COVERING SALES CONSULTANT: No ALLERGIES: Reviewed and unchanged CONTRAST ALLERGY: NO. EXAM: MRI - CONTRAST TYPE: GROUP II PERIPHERAL IV DATA: Ambulatory: A peripheral IV was started in the Right antecubital site with a Angio cath: 24 gauge. RADIOLOGY DEPARTMENT: MR; Exam(s) Completed: Head: Routine Brain SIGNATURE: RT Galdino(R) PATIENT NAME: Edna Sultana DATE: June 10, 2024 TIME: 10:13 AM documented in this encounter [facility] 06-01-2024 History of Present illness Narrative Edna Sultana is a 58 y.o.female. No LMP recorded. Patient is postmenopausal.. She presents for evaluation of vaginal lesion. 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 SHE IS CONCERNED THAT IT COULD BE ASSOCIATED WITH HPV OR CANCER Pt states she has a lesion in her vagina around the 7 o'clock area that have been getting bigger since she started using estrogen cream. Pt denies any pain but notes it is rough and bumpy. Pt describes it as smaller than a pencil erraser but notes it does not bother her during intercourse. She notes she has a hx of HPV. OB History 2 Para 2 Term 2 AB Living 3 SAB IAB Ectopic Multiple 1 Live Births MEDICAL HX Past Medical History: Diagnosis Date Abnormal Pap smear of cervix Basal cell carcinoma 03/2015 History of anemia History of transfusion HPV (human papilloma virus) infection Urinary tract infection Vitamin D deficiency SURGICAL HX Past Surgical History: Procedure Laterality Date SECTION 05/20/2006 COLONOSCOPY N/A 07/03/2018 Performed by Osmany Dunn MD at [facility] COLPOSCOPY 1988 TONSILLECTOMY TUBAL LIGATION FAMILY HX Family History Problem Relation Age of Onset Cancer Paternal Grandfather bladder Diabetes Maternal Grandmother Ovarian cancer Maternal Grandmother Prostate cancer Maternal Grandfather Multiple myeloma Father Hypertension Mother Dementia Mother No Known Problems Brother Obesity Sister No Known Problems Sister No Known Problems Sister Breast cancer Neg Hx MEDS Current Outpatient Medications Medication Sig Dispense Refill ALPRAZolam (XANAX) 0.25 mg tablet Take 0.5 tablets (0.125 mg total) by mouth Three times daily as needed. cholecalciferol 1,000 units tablet Take 1 tablet (1,000 Units total) by mouth in the morning. estradioL (ESTRACE) 0.01 % (0.1 mg/gram) vaginal cream Insert 1 g into the vagina 2 (two) times a week. 42.5 g 3 magnesium oxide (MAGOX) 400 mg tablet Take 1 tablet (400 mg total) by mouth in the morning. No current facility-administered medications for this visit. ALLERGIES Allergies Allergen Reactions Adhesive Itching and Rash Review of Systems Review of Systems Objective Ht 179.1 cm (5' 10.5 ) Wt 70.1 kg (154 lb 9.6 oz) BMI 21.87 kg/m Physical Exam Physical Exam GEN AAOX3, NAD HEENT UNREMARKABLE HEART RRR LUNGS CTAB ABD BENIGN, OBESE, NTND PELVIS: EG APPROP FOR AGE, 1 cm lesion in the RT lateral vaginal fornix at approximal 7 o'clock, mobil, well circumscribed underneath the surface, smooth, benign appearing, colposcopy performed. No areas of excoriation, no aceto findings, no suspicion of findings, no mosaicisms, acetic acid was applied, no biopsy performed THERE ARE NO VISIBLE LESIONS NOTED BIMANUAL NO MASSES OR TENDERNESS RECTAL DEFERRED EXTREM NO CCE, NO CALF TENDERNESS Assessment/Plan: Edna was seen today for vaginal lesions. Diagnoses and all orders for this visit: Vaginal lesion - Ultrasound pelvic with transvaginal; Future Advised follow-up in 3 months for reevaluation of the lesion. Discussed with the pt that there was nothing concerning visualized on exam. Noted that when using the microscope there was no dysplasia, stating that the lesion is in the vaginal wall and is not superficial. Noted that since it is palpated but not visualized, a biopsy was not done but a ultrasound was ordered. Noted that if the pt wants further evaluation of the lesion, a transvaginal ultrasound can be done and the pt states she is agreeable. MD EUGENIO DOWD, LEE Barnes 06/01/24 0939 [facility] History of Present illness Narrative Images from the original note were not included. Chief Complaint Patient presents with Sleeping Problem Subjective Edna states her sleep is a little better. She states she did start taking iron again and it has helped. She did have a sleep study since last visit. Her BP is high today. She states it was normal last week at her other dr office and this happens every time she goes to the neurologist. Past Medical History: Diagnosis Date Anemia Anxiety Cystocele with prolapse 09/06/2020 Dysuria 09/06/2020 History of panic attacks Incomplete emptying of bladder 01/09/2023 Insomnia Microscopic hematuria 01/09/2023 Nocturia 09/06/2020 Numbness Right flank pain 01/09/2023 Right sided abdominal pain 01/09/2023 Spinal stenosis with herniated disc L4-L5, Dr. Cazares Urinary urgency 01/09/2023 Past Surgical History: Procedure Laterality Date SECTION, CLASSIC [address] Dunn CYSTOSCOPY 02/17/2020 with urethral dilation, Dr. Duane REYNA BUNIONECTOMY Bilateral 1992 TONSILLECTOMY TUBAL LIGATION Family History Problem Relation Name Age of Onset Thyroid disease Mother Poppy Hypertension Mother Poppy Dementia Mother Poppy Anxiety disorder Mother Poppy Cancer Father Hypertension Father Diabetes Maternal Grandmother Cancer Maternal Grandmother Cancer Maternal Grandfather Kobi Depression Maternal Grandfather Kobi Pernicious anemia Paternal Grandmother Cancer Paternal Grandfather [...] Neurologic: No new headaches or dizziness Vitals: 05/31/24 1329 BP: (!) 154/96 Pulse: 106 Body mass index is 22.1 kg/m . [...] Diagnoses and all orders for this visit: Restless legs - TSH; Future - Ferritin; Future - Phosphorus; Future - Magnesium; Future - VITAMIN B12/FOLATE, SERUM PANEL; Future - Basic metabolic panel; Future - Vitamin B6; Future - Protein electrophoresis, serum; Future - Vitamin B1; Future - Niacin (vitamin B3); Future Benign fasciculation-cramp syndrome - TSH; Future - Ferritin; Future - Phosphorus; Future - Magnesium; Future - VITAMIN B12/FOLATE, SERUM PANEL; Future - Basic metabolic panel; Future - Vitamin B6; Future - Protein electrophoresis, serum; Future - Vitamin B1; Future - Niacin (vitamin B3); Future Hypersomnia PLMD (periodic limb movement disorder) Chronic low back pain, unspecified back pain laterality, unspecified whether sciatica present Sleep disturbance 58-year-old female with a long history of [...] sleep talking and it sounds like catathrenia. . She did have a PSG 05/2024 that was negative for AB as her AHI was 2 with minimum oxygen desaturation 90% during REM sleep and 91% during non REM sleep. The MSLT was not completed as she did have PLMD and had a significant amount of arousals. She slept for only 6 hours. I did want to start her on some doxepin and she declines. We could repeat and order the MSLT if her sleep improves and she has continued daytime hypersomnia. . She feels she has RLS. We did discuss the difference between PLMD and RLS. She started taking her iron again and this is helping. She was giving herself weekly B12 injections until about 3 months ago and her level was significantly high. She would like this rechecked and we will add in the other B vitamins and lab work to look for cause of calf fasciculations and RLS that she has. These are rather bothersome to her. . She does have chronic back pain. Sounds like she has went to PT multiple times for this with the last being in July 28, 2022. She has never had an MRI of her lumbar spine. I will obtain an MRI of the lumbar spine to assess for a structural lesion including degenerative lumbar spine disease which may be contributing to the patient's symptoms. She declines muscle relaxer. She does not like to take medications unless absolutely needed. She does have some bladder leakage/incontinence that is chronic and likely due to her age. . . . [facility] Order labs for RLS and fasciculations Monitor BP as she states it is only high in the office Reviewed PSG to assess for sleep disturbance such as PLMD, poor sleep cycling and obstructive sleep apnea MSLT not completed She declines taking the doxepin 10 mg 1-2 caps for PLMD at bedtime Her sleep hygiene is fairly good The [...] plan, and return instructions Return to clinic: 2-3 months documented in this encounter [facility] 05-18-2024 History of Present illness Narrative Edna Sultana is a pleasant 58 y.o. female who presents for annual fraternity adviser exam. She is postmenopausal. Hysterectomy: no Patient reports hx a lesion in her vagina that is increasing in size. She has hx genital / rectal wart removal in the past. She states the lesion is not painful but has gotten bigger in the past 6 months. She is sexually active. Denies painful intercourse or pelvic pain. 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 Vaginal Bleeding none Hot flashes / menopausal symptoms - None Bladder issues - yes, recently seen at [facility] ED for UTI, still having some symptoms Bowel issues - None History of abnormal Pap smear: yes - 1988 Last pap: 2021 Family history of uterine or ovarian cancer: yes - maternal grandmother age 80s ovarian Family hx pancreatic or prostate cancer: yes Family history of colon cancer: no Family history of breast cancer: no Regular self breast exam: yes Last mammogram: , scheduled for MBI next month Dexa Scan: 2020 - osteopenia Colonoscopy: 2017 OB History 2 Para 2 Term 2 AB Living 3 SAB IAB Ectopic Multiple 1 Live Births Past Medical History: Diagnosis Date Abnormal Pap smear of cervix Basal cell carcinoma 03/2015 History of anemia History of transfusion HPV (human papilloma virus) infection Urinary tract infection Vitamin D deficiency Past Surgical History: Procedure Laterality Date SECTION 05/20/2006 COLONOSCOPY N/A 07/03/2018 Performed by Osmany Dunn MD at [facility] COLPOSCOPY 1988 TONSILLECTOMY TUBAL LIGATION Family History Problem Relation Age of Onset Cancer Paternal Grandfather bladder Diabetes Maternal Grandmother Ovarian cancer Maternal Grandmother Prostate cancer Maternal Grandfather Multiple myeloma Father Hypertension Mother Dementia Mother No Known Problems Brother Obesity Sister No Known Problems Sister No Known Problems Sister Breast cancer Neg Hx Current Outpatient Medications Medication Sig Dispense Refill ALPRAZolam (XANAX) 0.25 mg tablet Take 0.5 tablets (0.125 mg total) by mouth Three times daily as needed. cholecalciferol 1,000 units tablet Take 1 tablet (1,000 Units total) by mouth in the morning. magnesium oxide (MAGOX) 400 mg tablet Take 1 tablet (400 mg total) by mouth in the morning. [START ON 05/20/2024] estradioL (ESTRACE) 0.01 % (0.1 mg/gram) vaginal cream Insert 1 g into the vagina 2 (two) times a week. 42.5 g 3 No current facility-administered medications for this visit. ALLERGIES Allergies Allergen Reactions Adhesive Itching and Rash Review of Systems Constitutional: Negative. Respiratory: Negative. Negative for chest tightness and shortness of breath. Cardiovascular: Negative. Negative for chest pain and palpitations. Gastrointestinal: Negative. Negative for constipation, diarrhea, nausea and vomiting. Endocrine: Negative. Genitourinary: Positive for urgency. Negative for dyspareunia, pelvic pain and vaginal bleeding. Musculoskeletal: Negative. Skin: Negative. Allergic/Immunologic: Negative. Neurological: Negative. Hematological: Negative. Psychiatric/Behavioral: Negative. Physical Exam BP 124/84 Ht 179.1 cm (5' 10.5 ) Wt 68.5 kg (151 lb) BMI 21.36 kg/m Physical Exam Vitals and nursing note reviewed. Constitutional: Appearance: Normal appearance. HENT: Head: Normocephalic and atraumatic. Cardiovascular: Rate and Rhythm: Normal rate and regular rhythm. Pulses: Normal pulses. Heart sounds: Normal heart sounds. Pulmonary: Effort: Pulmonary effort is normal. Breath sounds: Normal breath sounds. Chest: Breasts: Breasts are symmetrical. Right: Normal. No mass, skin change or tenderness. Left: Normal. No mass, skin change or tenderness. Abdominal: General: Bowel sounds are normal. Palpations: Abdomen is soft. Genitourinary: General: Normal vulva. Labia: Right: No rash or lesion. Left: No rash or lesion. Vagina: Normal. Cervix: Normal. Uterus: Normal. Not enlarged and not tender. Adnexa: Right adnexa normal and left adnexa normal. Right: No mass, tenderness or fullness. Left: No mass, tenderness or fullness. Comments: Three 5mm raised lesions palpated on right wall of vagina, not easily seen with speculum exam. Musculoskeletal: General: Normal range of motion. Cervical back: Normal range of motion and neck supple. Skin: General: Skin is warm and dry. Neurological: Mental Status: She is alert and oriented to person, place, and time. Psychiatric: Mood and Affect: Mood normal. Speech: Speech normal. Behavior: Behavior normal. Thought Content: Thought content normal. Judgment: Judgment normal. Assessment / Plan Edna was seen today for gynecologic exam. Diagnoses and all orders for this visit: Well woman exam with routine gynecological exam Urinary urgency - Urine Culture; Future - Urinalysis; Future Screening for osteoporosis - Dexa scan central skeletal; Future Postmenopausal - Dexa scan central skeletal; Future Hx of osteopenia - Dexa scan central skeletal; Future Vaginal atrophy - estradioL (ESTRACE) 0.01 % (0.1 mg/gram) vaginal cream; Insert 1 g into the vagina 2 (two) times a week. Next pap due 2026. Discussed ASCCP screening guidelines. BMI is in the acceptable range. Discussed SBE. Discussed taking a multivitamin. Discussed Calcium and Vitamin D for prevention of osteoporosis. Discussed need for yearly mammogram after 40 yo. Patient to discuss colon cancer screening recommendations with PCP. Educational material provided. All questions answered. RTO for annual fraternity adviser exam and / or PRN. RTO with physician to evaluate vaginal lesions. PIPPA Witt APRN-CNP 05/18/24 1633 documented in this encounter [facility] [employer] [facility] 04-20-2024 Note General Surgery Offi ce/Clinic Note Chief Complaint consultation for lipoma HPI Staff 58 year old female presents on consultation from Dr. Velázquez for lipoma of left abdomen. Reports noting mass near the underside of left rib cage approximately 1 year ago. Denies change in size since first noted. Denies soreness or tenderness. Abdominal US completed 12/2022 at [facility]. History of Present Illness 58 yo female referred for possible lipoma left abdominal wall; abdominal operations significant for and tubal ligation; patient noticed slight lump in area when lying flat; US at [facility] over 1 year ago with fatty tissue [...] disease: Brother. Hypertension: Mother. Multiple myeloma: Father. [facility] Comment on above: Result Comment: Elec tronically Signed By: JAMIN LAZO, Florentin Lozada\Date and Time Signed: 04/20/24 15:21 EDT 04-15-2024 History of Present illness Narrative Images from the original note were not included. Chief Complaint Patient presents with Sleeping Problem Subjective Edna A Gorham, 58 y.o., female HPI The patient states that she had a sleep study at [facility] 27 years ago. She was very tired [...] clinic: 2 months documented in this encounter [facility] 03-24-2024 Hospital Discharge instructions Ambulatory OrdersReferral to General Surgery Time Frame: 03/24/24, Location: None [facility] Work Phone: 03-23-2024 Note HNO ID: [id number] Author: JANNA GILMAN MD Service: ? Author [...] which included preparing to see the patient, [id number] patient care, completing clinical documentation, obtaining and/or reviewing separately obtained history, performing a medically appropriate examination, counseling and educating the patient/family/caregiver, and ordering medications, tests, or procedures. Janna Gilman MD cc: Abiodun Castano [id number] [facility] [id number] Edna Sultana [id number] [address] [facility] [address] [facility] 03-23-2024 History of Present illness Narrative This 58-year-old woman is seen [...] which included preparing to see the patient, [id number] patient care, completing clinical documentation, obtaining and/or reviewing separately obtained history, performing a medically appropriate examination, counseling and educating the patient/family/caregiver, and ordering medications, tests, or procedures. Janna Gilman MD cc: Abiodun Castano [id number] [facility] [address] Ednamartha Tuckerright [id number] [address] [facility] [address] documented in this encounter [facility] 12-12-2023 Note HNO ID: [id number] Author: ABIODUN CASTANO, DO Service: ? Author [...] at this mabel (more content not included)... [facility] 12-12-2023 History of Present illness Narrative [facility] [...] that escaped review. documented in this encounter [facility] 12-09-2023 History of Present illness Narrative Radiology Service Progress Note DATE [...] PATIENT PRESENTS WITH AN IMPLANTABLE OR ATTACHED WINDOW COVERING SALES CONSULTANT: No ALLERGIES: Reviewed and unchanged CONTRAST ALLERGY: [...] TIME: 10:26 AM documented in this encounter [facility] 12-09-2023 Note HNO ID: [id number] Author: SUZANNA GARY RT(Loli) Service: ? Author Type: Technologist Type: Progress [...] PATIENT PRESENTS WITH AN IMPLANTABLE OR ATTACHED WINDOW COVERING SALES CONSULTANT: No ALLERGIES: Reviewed and unchanged CONTRAST ALLERGY: NO. EXAM: MRI - CONTRAST TYPE: GROUP II PERIPHERAL IV DATA: Ambulatory: A peripheral IV was started in the Right antecubital site with a Angio cath: 24 gauge. RADIOLOGY DEPARTMENT: MR; Exam(s) Completed: Head: Multiple Sclerosis Spine: Cervical spine and Thoracic spine SIGNATURE: RT Galdino(R) PATIENT NAME: Edna Sultana DATE: December 09, 2023 TIME: 10:26 AM [facility] 11-10-2023 Evaluation note Authored November 10, 2023 11:44a m The above note written by __ _Prabhjot Tafoya____ acting as human recorder, note dictated by Dr. Layne .I performed the above HPI, ROS, and Examination. I formulated and dictated the treatment plan and was present for entire encounter. Yannick Velázquez D.O. [facility] Work Phone: 1(298) 774-607905-02-2024 Telephone encounter Note* Telephone Encounter - Kimberly House MA - 11/06/2023 9:08 AM EDT Scheduled 3 mri's and follow up appointment as requested by Dr. Castano. [facility]05-02-2024 Miscellaneous Notes* Telephone Encounter - Kimberly House MA - 11/06/2023 9:08 AM EDT Scheduled 3 mri's and follow up appointment as requested by Dr. Castano. * Telephone Encounter - Kimberly House MA - 11/06/2023 7:26 AM EDT end [facility] Telephone encounter Note * Telephone Encounter - Kimberly House MA - 11/06/2023 7:26 AM EDT end [facility]05-01-2024 Telephone encounter Note* Telephone Encounter - Abiodun [...] best recommendation. I willsend the patient a [employer] message also so she is aware. Devin please cancel her other MRIs and I have placed new orders. Abiodun Castano DO [facility] Work Phone: [phone] 517-2958370269-05-3021 Miscellaneous Notes* Telephone Encounter - Abiodun Castano [...] best recommendation. I willsend the patient a [employer] message also so she is aware. Devin please cancel her other MRIs and I have placed new orders. Abiodun Castano DO [facility] Telephone encounter Note * Telephone Encounter - Kimberly House MA - 10/28/2023 9:19 AM EDT Left message for patient to return call to schedule mri's and a follow up appointment. [facility]04-23-2024 Miscellaneous Notes* Telephone Encounter - Kimberly House MA - 10/28/2023 9:19 AM EDT Left message for patient to return call to schedule mri's and a follow up appointment. [facility] Miscellaneous Notes* Telephone Encounter - Frannie Hernandez RN - 10/23/2023 11:20 AM EDT KAYLEEN 10/21/23- unsigned note Additional info patient wanted to share [facility] Instructions* Patient Instructions* Abiodun Castano DO - [...] 2023 TIME: 8:41 AM [facility] NoteHNO ID: [id number] Author: ABIODUN CASTANO DO Service: ? 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 Has seen Dr. Victorina Martinez and has undergone EMG in June 2023. Also describes paresthesias largely inthe lateral aspect of bilateral feet and into [...] 2023 TIME: 8:41 AM [facility] History of Present illness Narrative* Ledy Emanuel, OPTICAL SCIENTIST-CNM - 09/30/2023 10:15 AM EDT Edna Sultana [...] 07/03/2018 Performed by Osmany Dunn MD at [facility] TONSILLECTOMY TUBAL LIGATION FAMILY HX Family [...] MILNER APRN-CNM 09/30/23 1234 [id number] Evaluation note* Author Yannick Velázquez [facility] Authored September 17, 2023 4:4 1pm The above note written by __ _Prabhjot Tafoya____ acting as human recorder, note dictated by Dr. Layne .I performed the above HPI, ROS, and Examination. I formulated and dictated the treatment plan and was present for entire encounter. Yannick Velázquez D.O. [facility] Work Phone: [phone] 134-680012-12-2023 Evaluation note* Encounter Date Diagnosis Assessment Notes [...] 5 MG tablets at a pharmacy in [place] to help her wean off the medication. [...] She voices that she is seeing a field technical support consultant on 06-19-23 and has an MRI of the right foot. She thinks she may have a neuroma of the right foot because she has a ball on the bottom of her right foot. Jun, Other 10:05 AM - 10:1 7 AM [facility] Other 11-21-2023 Note Yannick Velázquez DO [address], [place] [address] Re: Edna Sultana Date of Visit: 05/27/2023 Dear Yannick Velázquez DO, Let me know if you have any questions or concerns. Sincerely, MARTIN Moreno MD Providers: The following document(s) were included in the letter: May 27, 2023 11:20:24 EST - (05/27/2023) Neurosurgery Office Visit Note [facility]11-16-2023 Evaluation note* Encounter Date Diagnosis Assessment Notes Treatment Notes Treatment Clinical Notes May, Anxiety (ICD-10 - F41.9) When she gets home from work she is restless, does not know what to do with herself. 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 She did increase her Zoloft to [...] a second opinion with a specialist in [place]. She has pressure in her low back [...] her Cortisol level is a mess . [facility] Other 10-24-2023 Evaluation note* Encounter Date Diagnosis Assessment Notes Treatment Notes Treatment Clinical Notes Apr, Anxiety (ICD-10 - F41.9) [facility] Other 2023 Evaluation note* Encounter Date Diagnosis Assessment Notes Treatment Notes Treatment Clinical Notes Apr, Other mcfp (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 therapy (ICD-10 - Z79.899) Apr, Vitamin B12 deficiency (ICD-10 - E53.8) Apr, Muscle cramp (ICD-10 - R25.2) Apr, Paresthesia (ICD-10 - R20.2) Apr, Vitamin D deficiency (ICD-10 - E55.9) Apr, Fatigue (ICD-10 - R53.83) [facility] Other 2023 Evaluation note* Encounter Date Diagnosis Assessment Notes Treatment Notes Treatment Clinical Notes Apr, Vitamin B12 deficiency (ICD-10 - E53.8) Apr, Hypokalemia (ICD-10 - E87.6) [facility] Other 09-27-2023 Evaluation note* Encounter Date Diagnosis Assessment Notes Treatment Notes Treatment Clinical Notes Mar, Anxiety (ICD-10 - F41.9) [facility] Other 09-13-2023 Evaluation note* Encounter Date Diagnosis Assessment Notes Treatment Notes Treatment Clinical Notes Mar, Lumbar pain (ICD-10 - M54.50) [facility] Other 09-13-2023 Evaluation note* Encounter Date Diagnosis [...] not want to use an inversion table. [facility] Other 08-09-2023 Evaluation note* Encounter Date Diagnosis Assessment Notes Treatment Notes Treatment Clinical Notes Feb, Lumbar pain (ICD-10 - M54.50) [facility] Other 08-02-2023 Evaluation note* Encounter Date Diagnosis Assessment Notes Treatment Notes Treatment Clinical Notes Feb, Lumbar pain (ICD-10 - M54.50) [facility] Other 07-18-2023 Evaluation note* Encounter Date Diagnosis [...] understanding and is agreeable to treatment plan. [facility] Other 07-05-2023 Evaluation note* Encounter Date Diagnosis Assessment Notes Treatment Notes Treatment Clinical Notes Jan, Thyroid nodule (ICD-10 - E04.1) [facility] Other 06-30-2023 Evaluation note* Encounter Date Diagnosis Assessment Notes Treatment Notes Treatment Clinical Notes Dec, Thyroid nodule (ICD-10 - E04.1) [facility] Other 06-16-2023 Evaluation note* Encounter Date Diagnosis [...] prior to her mammogram then she should rell it. She did have a mammogram done [...] done when it comes to her town. [facility] Other 03-13-2023 Evaluation note* Encounter Date Diagnosis Assessment Notes Treatment Notes Treatment Clinical Notes Sep, Anxiety (ICD-10 - F41.9) [facility] Other 03-13-2023 Evaluation note* Encounter Date Diagnosis [...] continue with it today. She saw a uro/warehouse operations manager who referred her to physical therapy for pelvic floor therapy. They are going to see if Dr. Martinez feels her issue may be coming from her back. [facility] Other 02-23-2023 Evaluation note* Encounter Date Diagnosis Assessment Notes Treatment Notes Treatment Clinical Notes Aug, Lumbar degenerative disc disease (ICD-10 - M51.36) [facility] Other 02-01-2023 Evaluation note* Encounter Date Diagnosis Assessment Notes Treatment Notes Treatment Clinical Notes Aug, Spinal stenosis (ICD-10 - M48.00) Aug, DDD (degenerative disc disease), lumbar (ICD-10 - M51.36) Aug, Lumbar pain (ICD-10 - M54.50) [facility] Other 01-13-2023 Evaluation note* Encounter Date Diagnosis [...] symptoms. She did see a surgeon in [place] and he told her that she was [...] in this rx system) Methylcobalamin as directed. 13 Dylan, 2023 Tachycardia (ICD-10 - R00.0) She does monitor [...] noticed it turn flaky. She asked her directory operator who told her she didn't know what [...] (ICD-10 - Z80.41) She will see her warehouse operations manager next week to discuss a hysterectomy. She would like to have a CA-125 test done. Her grandmother had ovarian cancer. She voices that she would request a total hysterectomy if she is going to have a hysterectomy. Jul, Other mcfp (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 therapy (ICD-10 - Z79.899) Jul, Other Sometimes if sh e is running and stops she will get pain in both her adrenal glands that is so painful it will cause her to double over in pain. This has only happened a few times. She does feel this when she bends backwards on exam today. [facility] Other 12-28-2022 Evaluation note* Encounter Date Diagnosis Assessment Notes Treatment Notes Treatment Clinical Notes Jun, Lumbar pain (ICD-10 - M54.50) Jun, Lumbar degenerative disc disease (ICD-10 - M51.36) She is not having any radicular symptoms and no urinary tract symptoms. She feels that this is may be related to constipation and would like an order sent to [facility] for an x-ray to see how much stool is present. She is going to see Marty Lexy her physical therapist in [place] next week and hopefully this will help. She has responded well in the past to Medrol Dosepak and would like to have this available to take if desired. side effects/risks/benef its of medication reviewed. Jun, Constipation (ICD-10 - K59.00) Jun, Other 09:15 AM - 09:22 AM [facility] Other 12-19-2022 Evaluation note* Encounter Date Diagnosis [...] the medication. 2:50 PM - 2:58 PM [facility] Other 11-03-2022 Evaluation note* Encounter Date Diagnosis Assessment Notes Treatment Notes Treatment Clinical Notes May, Cystitis (ICD-10 - N30.90) [facility] Other 10-05-2022 Evaluation note* Encounter Date Diagnosis [...] likely fighting something viral a month ago. [facility] Other 09-20-2022 Evaluation note* Encounter Date Diagnosis [...] will return to see the neurosurgeon in [place] for her back. Mar, Other She voices that she had lab drawn through her employer to include cholesterol, she will provide the office with a copy of her results. 8:26 AM - 8:40 AM [facility] Other 08-12-2022 Evaluation note* Encounter Date Diagnosis Assessment Notes Treatment Notes Treatment Clinical Notes Feb, Anxiety (ICD-10 - F41.9) [facility] Other 07-25-2022 Evaluation note* Encounter Date Diagnosis [...] we will help you get into specialist. [facility] Other 07-08-2022 NotePROCEDURE: XR KNEE LT 4V [...] Electronically authenticated by: JENNIFER NICOLAS Date: 2022-01-11 12:09[facility]07-08-2022 Evaluation note* Encounter Date Diagnosis Assessment Notes Treatment Notes Treatment Clinical Notes Jan, Knee pain, left (ICD-10 - M25.562) [facility] Other 07-06-2022 Evaluation note* Encounter Date Diagnosis [...] and is not winded when she runs. [facility] Other 06-07-2022 Evaluation note* Encounter Date Diagnosis Assessment Notes Treatment Notes Treatment Clinical Notes Dec, Anxiety (ICD-10 - F41.9) [facility] Other 06-07-2022 Evaluation note* Encounter Date Diagnosis [...] ts of medication were reviewed. 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 [facility] Other 03-07-2022 Evaluation note* Encounter Date Diagnosis [...] She is considering seeing a pharmacist from [facility] to discuss a different version of Cyanocobalamin that does not contain cyanide, I did advise her that if she does this they can send us a prescription request to sign. Sep, Other She voices that her hair is falling out from having had COVID-19 but it seems to be slowing down. [facility] Other 12-06-2021 Evaluation note* Encounter Date Diagnosis [...] drinking alot of water and began drinking [place] artichoke and feels her symptoms resolved. She [...] to continue with what she is doing. [facility] Other Evaluation + Plan note No data available for this section [facility] Evaluation noteNo InformationNortDuke [facility] Other Evaluation noteNo assessment information available [facility] Work Phone: Evaluation note* Diagnosis PMB (postmenopausal bleeding)- Primary Postmenopausal bleeding Vaginal atrophy Postmenopausal atrophic vaginitis [facility] Diagnosis Lumbar radiculopathy- Primary Thoracic [...] nervous system, unspecified [facility] Diagnosis Fasciculation- Primary Abnormal involuntary movements Hyperreflexia Abnormal reflex Degeneration of lumbar or lumbosacral intervertebral disc documented in this encounter [facility]* Diagnosis Hyperreflexia Abnormal reflex Syringomyelia and syringobulbia (HCC) Syringomyelia and syringobulbia documented in this encounter [facility] Diagnosis Hyperreflexia Abnormal reflex Demyelinating disease of central nervous system (HCC) Demyelinating disease of central nervous system, unspecified documented in this encounter [facility]* Diagnosis Hyperreflexia Abnormal reflex Spinal stenosis of cervical region Spinal stenosis in cervical region Demyelinating disease of central nervous system (HCC) Demyelinating disease of central nervous system, unspecified documented in this encounter [facility]* Diagnosis Disturbance of skin sensation- Primary Fasciculation Abnormal involuntary movements Hyperreflexia Abnormal reflex documented [facility] this [facility]* Diagnosis Onset Date Resolution Status Abnormal finding on MRI of brain acute Anxiety acute Lipoma acute Twitching acute Vitamin B12 deficiency acute [facility] Work Phone: Evaluation note* Diagnosis AB (obstructive sleep apnea)- Primary Obstructive sleep apnea (adult) (pediatric) Hypersomnia Hypersomnia, unspecified Sleep disturbance Unspecified sleep disturbance Catathrenia Sleep talking Other dysfunctions of sleep stages or arousal from sleep documented in this encounter [facility]* Diagnosis Brain cyst- Primary Cerebral cysts [facility] Diagnosis Well woman exam with routine gynecological exam- Primary Routine gynecological examination Urinary urgency Urgency of urination Screening for osteoporosis Special screening for osteoporosis Postmenopausal Asymptomatic postmenopausal status (age-related) (natural) Hx of osteopenia Vaginal atrophy Postmenopausal atrophic vaginitis [facility] Diagnosis Vaginal lesion- Primary Other specified noninflammatory disorder of vagina [facility]* Diagnosis Restless legs- Primary Restless legs syndrome (RLS) Benign fasciculation-cramp syndrome Unspecified myoneural disorders Hypersomnia Hypersomnia, unspecified PLMD (periodic limb movement disorder) Periodic limb movement disorder Chronic low back pain, unspecified back pain laterality, unspecified whether sciatica present Sleep disturbance Unspecified sleep disturbance documented in this encounter [facility]* Diagnosis Brain cyst Cerebral cysts documented in this encounter [facility] general Narrative - Reported* Type Description Date [...] 2003 200 6 Hospitalization History see above [facility] Other [facility] general Narrative - Reported* Type Description Date [...] 2003 200 6 Hospitalization History see above [facility] Other [facility] general Narrative - Reported* Type Description Date [...] 2003 200 6 Hospitalization History see above [facility] Other History general Narrative - Reported* Type [...] 2003 200 6 Hospitalization History see above [facility] Other Hospital Discharge instructions No data available for this section [facility] InstructionsNot on filedocumented in this encounter [facility] SystemInstructions* Attachments The following attachments cannot be sent through Care Everywhere. * Calcium and vitamin D for bone health (Irish) documented in this encounterProG[facility] HospitalYododo SystemInstructionsNot on file documented in [facility] SystemProgress note No data available for this section [facility] Alonso Reason for referral (narrative)* Diagnostic Procedure Only (Routine) - Closed Specialty Diagnoses / Procedures Referred By Contac t Referred To Contact MR IMAGING Diagnoses Hyperreflexia Syringomyelia and syringobulbia (HCC) Procedures MRI BRAIN WO/W IVCON MRI BRAIN BRAIN STEM W/O W/[place] [address] [place] [address] [place] [address] Referral ID Status Reason Start Date Expiration Date V isits Requested Visits Authorized [id number] Closed Auto-Generate d Referral 11/06/2023 07/06/2024 1 1 [facility] for referral (narrative)* Diagnostic Procedure Only (Routine) - Closed Specialty Diagnoses / Procedures Referred By Contac t Referred To Contact MR IMAGING Diagnoses Hyperreflexia Demyelinating disease of central nervous system (HCC) Procedures MRI THORACIC SPINE WO/W IVCON MRI SPINAL CANAL THORACIC W/O & [place] [address] [address] [id number] [place] [address] Referral ID Status Reason Start Date Expiration Date V isits Requested Visits Authorized [id number] Closed Auto-Generate d Referral 11/06/2023 07/06/2024 1 1 [facility] for referral (narrative)* Diagnostic Procedure Only (Routine) - Closed Specialty Diagnoses / Procedures Referred By Contac t Referred To Contact MR IMAGING Diagnoses Hyperreflexia Spinal stenosis of cervical region Demyelinating disease of central nervous system (HCC) Procedures MRI CERVICAL SPINE WO/W IVCON MRI SPINAL CANAL CERVICAL W/O & [place] [address] [place] [address] [place] [address] Referral ID Status Reason Start Date Expiration Date V isits Requested Visits Authorized [id number] Closed Auto-Generate d Referral 11/06/2023 07/06/2024 1 1 [facility] for visit Narrativecontinued back pain, discuss multiple issues, [facility] Other Reason for visit Narrative* Diagnostic Procedure Only (Routine) - Closed Specialty Diagnoses / Procedures Referred By Ryan t Referred To Contact MR IMAGING Diagnoses Hyperreflexia Demyelinating disease of central nervous system (HCC) Procedures MRI THORACIC SPINE WO/W IVCON MRI SPINAL CANAL THORACIC W/O & W/[place] [address] [place] [address] [place] [facility] Referral ID Status Reason Start Date Expiration Date V isits Requested Visits Authorized [id number] Closed Auto-Generate d Referral 11/06/2023 07/06/2024 1 1 [facility] N[facility]ative* Diagnostic Procedure Only (Routine) - Closed Specialty Diagnoses / Procedures Referred By Ryan alejandro Referred To Contact MR IMAGING Diagnoses Hyperreflexia Spinal stenosis of cervical region Demyelinating disease of central nervous system (HCC) Procedures MRI CERVICAL SPINE WO/W IVCON MRI SPINAL CANAL CERVICAL W/O & W/[place] [address] [address] [phone] Mr Imaging [facility] Referral ID Status Reason Start Date Expiration Date V isits Requested Visits Authorized [id number] Closed Auto-Generate d Referral 11/06/2023 07/06/2024 1 1 [facility] Summary Purpose Family History No Family History Records Found Relationship Condition Age at Onset Recorded Date/T [...] history of mental disorder Unknown Advance Directives No Advanced Directives Records Found Advance Directive Response Recorded Date/ Time Advance Directives No March 8:56am Advance Directive Response Recorded Date/ Time Advance Directives No March 7:56am Advance Directive Response Recorded Date/ Time Advance Directives No September 16, 2 024 4:06pm Documents on File Type Date Recorded 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 REFERRING M.D.: Yannick Velázquez, DO [address] [place] [address] Consultation requested by Gisel for an opinion [...] bulge. no blood in urine QUESTIONNAIRE: Questionnaire: [facility] Female Pelvic [...] Referral Specialty Diagnoses / Procedures Referred By Contac t Referred To Contact MR IMAGING Diagnoses Brain cyst Procedures MRI BRAIN WO/W IVCON MRI BRAIN BRAIN STEM W/O W/CONTRAST MATERIAL Janna Gilman MD [address] [id number] Mr Imaging [facility] Referral ID Status Reason Start Date Expiration Date Visits Requested Visits Authorized [id number] New Request Auto-Generat ed Referral 06/05/2025 1 1 Specialty Diagnoses / Procedures Referred By Contac t Referred To Contact Diagnoses Hypersomnia Sleep disturbance Catathrenia Sleep talking Procedures Multiple sleep latency test Suzanne Gee DO [address] [place] [address] Referral ID Status Reason Start Date Expiration Date V isits Requested Visits Authorized [id number] Pending Review 04/15/2024 10/12/2024 1 1 Specialty Diagnoses / Procedures Referred By Contac t Referred To Contact Diagnoses AB (obstructive sleep apnea) Procedures Polysomnography Suzanne Gee DO [address] [place] [address] Referral ID Status Reason Start Date Expiration Date V isits Requested Visits Authorized [id number] Pending Review 04/15/2024 10/12/2024 1 1 Specialty Diagnoses / Procedures Referred By Contac t Referred To Contact Neurology Diagnoses Fasciculation Hyperreflexia Procedures CONSULT TO NEUROLOGY OFFICE/OUTPATIENT [facility] [address] [place] [address] [address] [place] [phone] Referral ID Status Reason Start Date Expiration Date Visits Requested Visits Authorized [id number] Authorized PCP Requested Referral 12/12/2023 12/11/2024 1 1 Specialty Diagnoses / Procedures Referred By Contac t Referred To Contact MR IMAGING Diagnoses Hyperreflexia Demyelinating disease of central nervous system (HCC) Procedures MRI BRAIN WO IVCON MRI BRAIN BRAIN STEM W/[place] [address] [address] [phone] [place] [address] Referral ID Status Reason Start Date Expiration Date Visits Requested Visits Authorized [id number] Pending Review Auto-Generat ed Referral 10/27/2023 11/25/2024 1 1 Specialty Diagnoses / Procedures Referred By Contac t Referred To Contact MR IMAGING Diagnoses 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) Demyelinating disease of central nervous system (HCC) Procedures MRI THORACIC SPINE WO IVCON MRI SPINAL CANAL THORACIC W/[place] [address] [address] [phone] [place] [address] Referral ID Status Reason Start Date Expiration Date Visits Requested Visits Authorized [id number] Pending Review Auto-Generat ed Referral 10/27/2023 11/25/2024 1 1 Specialty Diagnoses / Procedures Referred By Contac t Referred To Contact MR IMAGING Diagnoses Hyperreflexia Neuromuscular scoliosis of thoracic region Chiari I malformation (HCC) Spinal stenosis of cervical region Syringomyelia and syringobulbia (HCC) Demyelinating disease of central nervous system (HCC) Procedures MRI CERVICAL SPINE WO IVCON MRI SPINAL CANAL CERVICAL W/[place] [address] [place] [phone] [place] [address] Referral ID Status Reason Start Date Expiration Date Visits Requested Visits Authorized [id number] Pending Review Auto-Generat ed Referral 10/27/2023 11/25/2024 1 1 Reason appt pt needs cons ult to discuss twitching, numbness right foot, neuropathy Diagnosis 1 Twitching (R25.3) Referral Organization [facility] Family Andreas Gupta Referring Provider First Name Yannick Referring Provider Last Name Gisel Referring Provider Specialty Family Prac loretta Referred Organization [facility] Referred Provider Nathen Hoover Referred Address [address] [place],[address] Referred Provider Specialty Neurology Referral Priority Routine [...] 1 Thyroid nodule (E04. 1) Referral Organization [facility] Referring Provider First Name Yannick Referring Provider Last Name Gisel Referring Provider Specialty Family Prac loretta Referred Organization [facility] Referred Provider Reza Gorman Referred Address ,[place], [place],[address] Referred Provider Specialty Ear, Nose an d [...] Lumbar degenerative disc disease (M51.36) Referral Organization [facility] Referring Provider First Name Yannick Referring Provider Last Name Gisel Referring Provider Specialty Family Bianka burgos Referred Organization [facility] Referred Provider Victorina Martinez Referred Address [address] ,[place], [place],[address] Referred Provider Specialty Neurological Surgery Referral Priority Routine Referral Appointment Date 2022-09-18 General Notes Victorina Cassidy 08/29/2022 01:50:55 PM > referral sent p2p. pt understands she will be contacted to schedule this appt. Victorina Cassidy 08/30/2022 10:55:52 AM > appt scheduled on 09/18/22 at 8:20am Additional Source Comments INFORMATION SOURCE (unrecogn ized section and content) DATE CREATED AUTHOR 11/17/2019 [facility] DATE CREATED AUTHOR AUTHOR'S ORGANIZ ATION 07/06/2022 [facility] DATE CREATED AUTHOR AUTHOR'S ORGANIZ ATION 05/29/2023 [facility] DATE CREATED AUTHOR AUTHOR'S ORGANIZ ATION 10/01/2023 [facility] DATE CREATED AUTHOR AUTHOR'S ORGANIZ ATION 03/29/2024 [facility] DATE CREATED AUTHOR AUTHOR'S ORGANIZ ATION 04/22/2024 [facility] DATE CREATED AUTHOR AUTHOR'S ORGANIZ ATION 05/21/2024 [facility] DATE CREATED AUTHOR AUTHOR'S ORGANIZ ATION 06/02/2024 [facility] Specialists [facility] DATE CREATED AUTHOR AUTHOR'S ORGANIZ ATION 06/20/2024 [facility] DATE CREATED AUTHOR AUTHOR'S ORGANIZ ATION 06/27/2024 [facility] DATE CREATED AUTHOR AUTHOR'S ORGANIZ ATION 06/27/2024 [facility] DATE CREATED AUTHOR AUTHOR'S ORGANIZ ATION 07/02/2024 [facility] Source Comments (unrecognize d section and content) In the event this informatio n is protected by the Federal Confidentiality of Alcohol and Drug Abuse Patient Records regulations: The Federal rules restrict any use of the information to criminally investigate or prosecute any alcohol or drug abuse patient.[facility] the event this information is protected by the Federal Confidentiality of Alcohol and Drug Abuse Patient Records regulations: The Federal rules restrict any use of the information to criminally investigate or prosecute any alcohol or drug abuse patient.[facility] the event this information is protected by the Federal Confidentiality of Alcohol and Drug Abuse Patient Records regulations: The Federal rules restrict any use of the information to criminally investigate or prosecute any alcohol or drug abuse patient.[facility] the event this information is protected by the Federal Confidentiality of Alcohol and Drug Abuse Patient Records regulations: The Federal rules restrict any use of the information to criminally investigate or prosecute any alcohol or drug abuse patient.[facility] the event this information is protected by the Federal Confidentiality of Alcohol and Drug Abuse Patient Records regulations: The Federal rules restrict any use of the information to criminally investigate or prosecute any alcohol or drug abuse patient.[facility] the event this information is protected by the Federal Confidentiality of Alcohol and Drug Abuse Patient Records regulations: The Federal rules restrict any use of the information to criminally investigate or prosecute any alcohol or drug abuse patient.[facility] the event this information is protected by the Federal Confidentiality of Alcohol and Drug Abuse Patient Records regulations: The Federal rules restrict any use of the information to criminally investigate or prosecute any alcohol or drug abuse patient.[facility] the event this information is protected by the Federal Confidentiality of Alcohol and Drug Abuse Patient Records regulations: The Federal rules restrict any use of the information to criminally investigate or prosecute any alcohol or drug abuse patient.[facility] the event this information is protected by the Federal Confidentiality of Alcohol and Drug Abuse Patient Records regulations: The Federal rules restrict any use of the information to criminally investigate or prosecute any alcohol or drug abuse patient.[facility] the event this information is protected by the Federal Confidentiality of Alcohol and Drug Abuse Patient Records regulations: The Federal rules restrict any use of the information to criminally investigate or prosecute any alcohol or drug abuse patient.[facility] the event this information is protected by the Federal Confidentiality of Alcohol and Drug Abuse Patient Records regulations: The Federal rules restrict any use of the information to criminally investigate or prosecute any alcohol or drug abuse patient.[facility] the event this information is protected by the Federal Confidentiality of Alcohol and Drug Abuse Patient Records regulations: The Federal rules restrict any use of the information to criminally investigate or prosecute any alcohol or drug abuse patient.[facility] the event this information is protected by the Federal Confidentiality of Alcohol and Drug Abuse Patient Records regulations: The Federal rules restrict any use of the information to criminally investigate or prosecute any alcohol or drug abuse patient.[facility] the event this information is protected by the Federal Confidentiality of Alcohol and Drug Abuse Patient Records regulations: The Federal rules restrict any use of the information to criminally investigate or prosecute any alcohol or drug abuse patient.[facility] the event this information is protected by the Federal Confidentiality of Alcohol and Drug Abuse Patient Records regulations: The Federal rules restrict any use of the information to criminally investigate or prosecute any alcohol or drug abuse patient.[facility] the event this information is protected by the Federal Confidentiality of Alcohol and Drug Abuse Patient Records regulations: The Federal rules restrict any use of the information to criminally investigate or prosecute any alcohol or drug abuse patient.[facility] Reason for Visit (unrecogniz ed section and [...] MRI Specialty Diagnoses / Procedures Referred By Ryan t Referred To Contact MR IMAGING Diagnoses Hyperreflexia Syringomyelia and syringobulbia (HCC) Procedures MRI BRAIN WO/W IVCON MRI BRAIN BRAIN STEM W/O W/[place] [address] [place] [address] [place] [address] Referral ID Status Reason Start Date Expiration Date V isits Requested Visits Authorized [id number] Closed Auto-Generate d Referral 11/06/2023 07/06/2024 1 1 Reason Comments New Patient Consult Specialty Diagnoses / Procedures Referred By Contac t Referred To Contact Neurology Diagnoses Fasciculation Hyperreflexia Procedures CONSULT TO NEUROLOGY OFFICE/OUTPATIENT NEW HIGH MDM [address] [place] [address] [place] [address] Referral ID Status Reason Start Date Expiration Date V isits Requested Visits Authorized [id number] Closed PCP Requested Referral 12/12/2023 12/11/2024 1 1 Reason Comments Sleeping Problem Reason Comments Gynecologic Exam Pt is here for annua l exam. Reason Comments Vaginal Lesions Reason Comments Sleeping Problem Specialty Diagnoses / Procedures Referred By Contac t Referred To Contact MR IMAGING Diagnoses Brain cyst Procedures MRI BRAIN WO/W IVCON MRI BRAIN BRAIN STEM W/O W/CONTRAST MATERIAL Janna Gilman MD [address] [place] [address] [place] [address] Referral ID Status Reason Start Date Expiration Date V isits Requested Visits Authorized [id number] Closed Auto-Generate d Referral 05/06/2024 06/05/2025 1 1 Stephanie Perrin MA - 09/06/2020 1:40 PM EST Nursing Notes (unrecognized section and content) PVR 0 documented in this encounter Care Teams (unrecognized sec tion and content) Team Status: Active Member Role Status Austin Velázquez DO Primary Care Provider Active Team [...] 2023 Team Status: Inactive Member Role Status Dates [...] September 17, 2023 End: September 17, 2023 Financial Analysis Consultant Relationship Specialty Start Date End Date Yannick Velázquez DO [address] [place], [place] [id number] PCP - General 06/11/17 Financial Analysis Consultant Relationship Specialty Start Date End Date Yannick Velázquez DO [address] [place] [phone] PCP - General Family Medicine 08/31/20 Yannick Velázquez DO [address] [place] [phone] Referring Family Medicine 08/31/20 Financial Analysis Consultant Relationship Specialty Start Date End Date Yannick Velázquez DO [address] [place] [phone] PCP - General Family Medicine 08/31/20 Yannick Velázquez DO [address] [place] [address] Referring Family Medicine 08/31/20 Financial Analysis Consultant Relationship Specialty Start Date End Date Girvin, Yannick C, DO [address] [place] [address] PCP - General Family Medicine 08/31/20 Yannick Velázquez, [address] [place] [address] Referring Family Medicine 08/31/20 Financial Analysis Consultant Relationship Specialty Start Date End Date Yannick Velázquez, DO [address] [place] [phone] PCP - General Family Medicine 08/31/20 Yannick Velázquez, [address] [place] [address] Referring Family Medicine 08/31/20 Financial Analysis Consultant Relationship Specialty Start Date End Date Yannick Velázquez, DO [address] [place] [phone] PCP - General Family Medicine 08/31/20 Yannick Velázquez, [address] [place] [address] Referring Family Medicine 08/31/20 Team Status: Active Member Role Status Dates Yannick Velázquez DO Primary Care Provider Active S tart: September 24, 2023 Prabhjot Tafoya LPN Attending Provider Active St art: September 24, 2023 Financial Analysis Consultant Relationship Specialty Start Date End Date Yannick Velázquez, [address] [place] [address] PCP - General Family Medicine 08/31/20 Yannick Velázquez, [address] [place] [phone] Referring Family Medicine 08/31/20 Financial Analysis Consultant Relationship Specialty Start Date End Date Yannick Velázquez, DO [address] [place] [address] PCP - General Family Medicine 08/31/20 Yannick Velázquez, DO [address] [place] [address] Referring Family Medicine 08/31/20 Financial Analysis Consultant Relationship Specialty Start Date End Date Yannick Velázquez, DO [address] [place] [phone] PCP - General Family Medicine 08/31/20 Yannick Velázquez, DO [address] [place] [address] Referring Family Medicine 08/31/20 Financial Analysis Consultant Relationship Specialty Start Date End Date Yannick Velázquez, DO [address] [place] [phone] PCP - General Family Medicine 08/31/20 Yannick Velázquez, DO [address] [place] [address] Referring Family Medicine 08/31/20 Financial Analysis Consultant Relationship Specialty Start Date End Date Yannick Velázquez, DO [address] [place] [phone] PCP - General Family Medicine 08/31/20 Yannick Velázquez, DO [address] [place] [address] Referring Family Medicine 08/31/20 Financial Analysis Consultant Relationship Specialty Start Date End Date Yannick Velázquez DO [address] [place] [phone] PCP - General Family Medicine 08/31/20 Yannick [...] March 24, 2024 End: March 24, 2024 Financial Analysis Consultant Relationship Specialty Start Date End Date Yannick Velázquez MD [address] [place] [address] PCP - General Family Medicine 01/08/23 Financial Analysis Consultant Relationship Specialty Start Date End Date Yannick Velázquez MD [address] [place], [place] [phone] PCP - General Family Medicine 01/08/23 Financial Analysis Consultant Relationship Specialty Start Date End Date Yannick Velázquez DO [address] [place], [place] [phone] PCP - General 06/11/17 Financial Analysis Consultant Relationship Specialty Start Date End Date Yannick Velázquez DO [address] [place] [address] [place] [address] PCP - General 06/11/17 Financial Analysis Consultant Relationship Specialty Start Date End Date Yannick Velázquez MD [address] [place], [place] [phone] PCP - General Family Medicine 01/08/23 Financial Analysis Consultant Relationship Specialty Start Date End Date Yannick Velázquez DO [address] [place] [address] PCP - General Family Medicine 08/31/20 Yannick Velázquez DO [address] [place] [address] Referring Family Medicine 08/31/20 Goals (unrecognized [...] BE BASED ON THE PRIMARY CLINICAL RECORDS. [employer] provides no warranty or guarantee of the accuracy or completeness of information in this document.
== END 2024-07-21 14:42 | disposition home or self-care (01) ==
LOC: US 14:41
PROVIDERS: PCP Psychiatry & Neurology Neurology; Visit Provider Otolaryngology
DX: E04.1 Nontoxic single thyroid nodule (principal)
CPT/HCPCS: 76536

== ENCOUNTER 2025-01-18 07:28 | Outpatient (OUT) | payer OTHER, SELFPAY ==
--- NOTE | 2025-01-18 07:35 | US_ITS ---
The [address] [address] Patient Name: BALA SULTANA MRN: [id number] date: 1965 Sex: F Assigned Patient Location: US Current Patient Location: US Accession/Order Number: [id number] Exam Date: 01/18/2025 08:47 Report Date: 01/18/2025 09:07 At the request of: REZA GORMAN MD Procedure: US thyroid THYROID ULTRASOUND COMPARISON: 07/21/2024 and 07/14/2023 CLINICAL DATA: Follow-up thyroid nodularity The right thyroid lobe measures 5.3 x 2.3 x 1.3 cm . The left lobe measures 5.8 x 1.8 x 1.7 cm. The isthmus measures 2 - 3 mm . Thyroid echotexture is mildly heterogeneous. At the superior pole on the right, there is still an irregular hypoechoic nodular area measuring 6 x 4 x 6 mm, not significantly changed. 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 It measures 20 x 9 x 17 mm. This is stable. Inferior to it is a hypoechoic nodule with some echogenic foci measuring 4 x 4 x 5 mm, not significantly changed. At the mid to lower pole laterally, there is a heterogeneous hypoechoic nodule with echogenic foci measuring 8 x 6 x 4 mm. This might be minimally larger. It was better seen on the July 2023 comparison. Close to it is another hypoechoic nodule measuring 6 x 4 x 4 mm which is stable. At the left isthmus, a small hypoechoic nodule measuring 6 x 3 x 2 mm is again seen. US/US thyroid IMPRESSION: SIMILAR BILATERAL THYROID NODULARITY. CONTINUED FOLLOW-UP IS SUGGESTED. Impression dictated by: Poppy Ashley M.D. 01/18/2025 9:07 AM Dictation Location: [place] [address] Electronically authenticated by: [id number] Y Date: 01/18/2025 09:07
--- OUTSIDE RECORDS SUMMARY | 2025-01-18 07:43 | XMS_ITS | CCD ---
Author Organization [facility] Care Team Providers Care Geosciences Professor Name Role Phone Yannick Velázquez Primary Care Provider Yannick Velázquez Unavailable Yannick Velázquez Unavailable Shara Cutler Unavailable SELAM Cutler Attending Provider NO FAMILY, PHYSICIAN Primary Care Provider Unava ilable GISEL, DR LANIER Admitting Unavailable GIRKAREN, DR LANIER Attending Unavailable GIRKAREN, DR LANIER Primary Care Unavailable GIRVIN, DR LANIER Consulting Unavailable ZIEBER, DR JENNIFER Ennis Consulting Unavailable GIRVIN, DR [...] Unavailab Farrukh Reinoso III, MD Attending U navailYANNICK Caballero Referring Unavailable YANNICK VELÁZQUEZ Primary Care Unavailable Yannick Velázquez DO Primary Care Provider Yannick Velázquez DO Unavailable Yannick Velázquez DO Primary Care Provider [phone] ABIODUN CASTANO Referring Unavailable YANNICK VELÁZQUEZ Primary Care Unavailable ABIODUN CASTANO Referring Unavailable YANNICK VELÁZQUEZ Primary Care Unavailable ABIODUN CASTANO Attending Unavailable YANNICK VELÁZQUEZ Primary Care Unavailable RACHEL GILMANRY H Referring Unavailable YANNICK VELÁZQUEZ Primary Care Unavailable ABIODUN CASTANO Referring Unavailable JANNA GILMAN H Attending Unavailable YANNICK VELÁZQUEZ Primary Care Unavailable ABIODUN CASTANO Attending Unavailable YANNICK VELÁZQUEZ Primary Care Unavailable ABIODUN CASTANO Referring Unavailable YANNICK VELÁZQUEZ Primary Care Unavailable Yannick Velázquez MD Primary Care Provider Yannick Velázquez Referring Unavailable Florentin NEVILLE Attending Unavailable Yannick Velázquez Primary Care Physician [phone] Yannick Velázquez Primary Care Unavailable Ivy Garcia Attending Unavailable Ivy Garcia Admitting Unavailable RAVEN HERNÁNDEZ Referring Unavailable YANNICK VELÁZQUEZ Primary Care Unavailable RAVEN HERÁNNDEZ Referring Unavailable YANNICK VELÁZQUEZ Primary Care Unavailable REZA GORMAN Attending Unavailable REZA GORMAN Attending Unavailable SUZANNE GEE Attending Unavailable IVY GARCIA Attending Unavailable Yannick Velázquez DO Primary Care Provider Yannick Velázquez DO Primary Care Provider MANUEL RAVEN M Referring Unavailable YANNICK VELÁZQUEZ Primary Care Unavailable MANUEL RAVEN M Referring Unavailable YANNICK VELÁZQUEZ Primary Care Unavailable KATIA WHITT Referring Unavailable YANNICK VELÁZQUEZ Primary Care Unavailable KATIA WHITT L Referring Unavailable YANNICK VELÁZQUEZ Primary Care Unavailable LIBBY WHITTIE Attending Unavailable JOSE EDUARDO KATIA Referring Unavailable YANNICK VELÁZQUEZ Primary Care Unavailable RAVEN SMITH Attending Unavailable RAVEN SMITH Referring Unavailable YANNICK VELÁZQUEZ Primary Care Unavailable RAVEN SMITH Attending Unavailable RAVEN SMITH Referring Unavailable YANNICK VELÁZQUEZ Primary Care [...] DO Primary Care Provider Yannick Velázquez DO Provider [phone] Allergies Allergy Classification Reported Allergen(s) Allergy Type Date of Onset Reaction(s) Facility (18 sources) Adhesive Tape-Silicones; Translations: [ADHESIVE TAPE-SILICONES] Drug Allergy 09-07-19 21 [facility] ([facility] sources) Nitrofurantoin; Translations: [Macrobid] Drug Allergy Diarrhea (finding) [facility] (20 sources) steri-strips Propensity to adverse reactions rash [facility] Other (3 sources) Adhesive bandage; Translations: [Adhesive Bandage] Drug allergy (disorder) 12-17-19 19 Eruption of skin (disorder) [facility] (20 sources) NITROFURANTOIN, MACROCRYSTALS / Nitrofurantoin, Monohydrate Drug Allergy 10-27-19 25 Diarrhea [facility] Other (1 source) steri stips; Translations: [steri stips] Propensity to adverse reactions (disorder) [facility] (8 sources) Adhesive Tape; Translations: [adhesive tape] Allergy to substance 09-17-19 24 rash [facility] (20 sources) Nitrofurantoin; Translations: [nitrofurantoin] Drug Allergy 09-17-19 24 diarrhea [facility] (20 sources) Adhesive agent; Translations: [ADHESIVE] Propensity to adverse reactions to drug (disorder) 05-20-20 Itching, Rash, Swelling [facility] (16 sources) Fluorouracil-Adhe sive Bandage; Translations: [FLUOROURACIL-ADH ESIVE BANDAGE] Drug Allergy 12-17-19 19 Rash [facility] (10 sources) Wound Dressing Adhesive Drug Allergy 01-10-20 23 Rash [facility] Work Phone: (3 sources) NITROFURANTOIN MONOHYD/M-CRYST; Translations: [NITROFURANTOIN MONOHYD/M-CRYST] Propensity to adverse reactions to drug (disorder) 10-27-19 [facility] (1 source) ALLERGIES NOT ON FILE; Translations: [ALLERGIES NOT ON FILE] Propensity to adverse reactions (disorder) [facility] [place] Rep[facility] Medications Current Medications Medication Drug Class(es) Dates Sig (Normalized) Sig (Original) ALPRAZolam 0.25 mg oral tablet (20 sources) Benzodiazepine Start: 09-29-2024 ALPRAZolam (XANAX) 0.25 mg tablet TAKE 1/2-1 TABLET BY MOUTH EVERY 8-12 HOURS NEEDED X 12 DAYS 09/29/2024 Active Start: 09-17-2023 End: 06-15-2024 Alprazolam (Xanax) 0.25 mg t ablet Discontinued 0 PO .Q8-12 hrs prn 36 April 27, 2024 2:25pm June 15, 2024 4:21pm 1/2 to 1 tablet Orally q8-12 hrs prn Start: 02-10-2020 take 1 tablet by erika three times daily as needed for anxiety Xanax 0.25 mg Tab See Instructions, PRN as needed for anxiety, tab(s) mg Oral TID, Refills(s) 0 Start Date: 02/10/20 Status: Ordered Start: 02-27-2017 take 2 tablets by mo [facility] every eight hours as needed ALPRAZolam (XANAX) 0.25 mg tablet Take 0.5 mg by mouth three times a day as needed. 02/27/2017 Active Start: 02-27-2017 Xanax 0.25 MG 1/2 to 1 tablet Orally q8-12 hrs prn Feb, Active End: 08-31-2024 take 0.5 tablet by mouth three times daily as needed ALPRAZolam (XANAX) 0.25 mg tablet Take 0.5 tablets (0.125 mg total) by mouth Three times daily as needed. 08/31/2024 Discontinued amoxicillin 875 mg oral tablet (4 sources) Penicillin-class Antibacterial Start: 12-24-2021 take 1 tablet by mouth every twelve hours Amoxicillin 875 MG 1 tablet Orally Twice a day Dec, Active b complex-folic acid tablet (10 sources) take 1 tablet by mouth in [...] INJECTION Active cholecalciferol 0.025 mg chewable tablet (20 sources) Vitamin D Start: 11-09-2019 take 1 tablet by mouth once daily Cholecalciferol (Vitamin D3) (Vitamin D3) 25 mcg (1,000 unit) Tablet,Chewable Active 1000 UNIT PO Daily November 09, 2019 12:00am Complies with drug therapy take 1 tablet by mouth in the mo rning cholecalciferol 1,000 units tablet Take 1 tablet (1,000 Units total) by mouth in the morning. Active cholecalciferol, vitD3,/vit K2 (VITAMIN D3-VITAMIN K2 ORAL) (7 sources) cholecalciferol, vitD3,/vit K2 (VITAMIN D3-VITAMIN K2 ORAL) Take by mouth once daily. Active cholecalciferol, vitD3,/vit K2 (VITAMIN D3-VITAMIN K2 ORAL) Take by mouth once daily. 0 Active 84 hr estradiol 0.43295 mg/hr transdermal system (20 sources) Estrogen Start: 01-03-2025 apply 1 dose transdermal route two times weekly Estradiol 0.05 mg/24 hr patch semiweekly Active 1 PATCH TRANSDERML Twice a Week January 03, 2025 12:00am Complies with drug therapy Start: 01-03-2025 Estradiol 0.01 % (0.1 mg/gram) cream Active VAGINAL January 03, 2025 12:00am Complies with drug therapy Start: 12-23-2024 estradioL (DORA ROSALINDA-DOT) 0.05 mg/[address] 1 patch on the skin 2 (two) times a week. 8 patch 11 12/23/2024 Active Start: 12-23-2024 estradioL (DORA ROSALINDA-DOT) 0.05 mg/[address] 1 patch on the skin 2 (two) times a week. 8 patch 11 12/23/2024 Active Start: 11-30-2024 estradioL (DORA ROSALINDA-DOT) 0.0375 mg/[address] 1 PATCH ON THE SKIN 2 TIMES A WEEK. 24 patch 4 11/30/2024 Active Start: 11-11-2024 estradioL (EST RACE) 0.01 % (0.1 mg/gram) vaginal cream Indications: Vaginal atrophy Insert 1 g into the vagina 2 (two) times a week. 42.5 g 11 11/11/2024 Active Start: 11-11-2024 End: 11-30-2024 estradioL (VIVELLE-DOT) 0.03 75 mg/[address] 1 patch on the skin 2 (two) times a week. 8 patch 11/11/2024 11/30/2024 Discontinued Start: 11-11-2024 estradioL (DORA ROSALINDA-DOT) 0.0375 mg/[address] 1 patch on the skin 2 (two) times a week. 8 patch 11 11/11/2024 Active Start: 11-11-2024 estradioL (EST RACE) 0.01 % (0.1 mg/gram) vaginal cream Indications: Vaginal atrophy Insert 1 g into the vagina 2 (two) times a week. 42.5 g 11 11/11/2024 Active Start: 10-20-2024 End: 01-03-2025 Estradiol (Vivelle-Dot) 0.02 5 mg/24 hr patch semiweekly Discontinued 1 PATCH TRANSDERML Twice a Week October 20, 2024 12:00am January 03, 2025 11:09am apply 1 patch twice weekly (replace every 3-4 days) Start: 05-20-2024 End: 11-09-2024 estradioL (ESTRACE) 0.01 % ( 0.1 mg/gram) vaginal cream Indications: Vaginal atrophy Insert 1 g into the vagina 2 (two) times a week. 42.5 g 3 05/20/2024 11/09/2024 Discontinued (Reorder) Start: 05-20-2024 estradioL (EST RACE) 0.01 % [...] fumarate/ascorbic ac id (WILLIAM-SEQUELS, IRON-VIT C, ORAL) (16 sources) ferrous fumarate /ascorbic acid (WILLIAM-SEQUELS, IRON-VIT [...] 1 Each 0 11/05/2023 11/06/2023 Active magnesium citrate 125 mg oral capsule (2 sources) Start: 10-20-2024 take 1 capsule by mouth once daily Magnesium Citrate 125 mg capsule Active 125 MG PO Daily October 20, 2024 12:00am Complies with drug therapy magnesium oxide 400 mg oral tablet (20 sources) Start: 09-17-2023 End: 08-04-2024 Magnesium Oxide 400 mg (241.3 mg magnesium) tablet Active 400 MG PO As Directed September 17, 2023 12:00am FreeTextSig: as directed Orally; Note: Source Status: Taking; Provider: Gisel Lanier ( ) Complies with drug therapy methlyfolate 800 mg (6 sources) Start: 09-29-2024 methlyfolate 8 00 mg Active PO .PRN September 29, 2024 9:20am Complies with drug therapy Start: 09-29-2024 methlyfolate 8 00 mg Active PO .PRN September 29, 2024 9:20am Start: 06-15-2024 End: 09-29-2024 methlyfolate 800 mg Disconti nued PO June 15, 2024 1:00am September 29, 2024 9:21am potassium citrate (7 sources) POTASSIUM CITRAT E ORAL Take by mouth once daily. Active POTASSIUM CITRAT E ORAL Take by mouth once daily. 0 Active progesterone 200 mg oral capsule (7 sources) Progesterone Start: 10-20-2024 take 1 capsule by mouth in the morning progesterone (PROMETRIUM) 200 mg capsule Take 1 capsule (200 mg total) by mouth in the morning. 30 capsule 11 11/09/2024 Active Selenium (3 sources) Selenium Active Syringe 25G X 5/8 3 ML (2 sources) Syringe 25G X 5/ 8 3 ML as directed with B12 injection Active Completed/Discontinued Medications Medication Drug Class(es) Dates Sig (Normalized) Sig (Original) acetaminophen 325 mg / oxyCODONE hydrochloride 5 mg oral tablet (9 sources) Opioid Agonist Start: 02-23-2023 End: 09-17-2023 take 1 tablet by mouth every four hours as needed for pain Oxycodone-Acetamin ophen 5-325 mg tablet Discontinued 1 TAB PO Q4H as needed for Pain February 23, 2023 12:00am September 17, 2023 3:35pm amoxicillin 875 mg / clavulanate 125 mg oral tablet (1 source) Penicillin-class Antibacterial Start: 11-24-2024 End: 01-03-2025 take 1 tablet by mouth twice daily at mealtime Amoxicillin-Pot Clavulanate 875-125 mg tablet Discontinued 1 TAB PO Twice daily 25 04November 24, 2024 12:00am January 03, 2025 11:08am with food azithromycin 250 mg oral tablet (6 sources) [...] 1-3 times a day prn Jan, Not-Taking ciprofloxacin 500 mg oral tablet (4 sources) Quinolone Antimicrobial Start: 09-29-2024 End: 10-20-2024 take 1 tablet by mouth twice daily Ciprofloxacin Hcl (Cipro) 500 mg tablet Discontinued 500 MG PO Twice daily 6 September 29, 2024 12:00am October 20, 2024 12:43pm Start: 03-01-2020 take 1 tablet by erika th every twelve hours Cipro 500 MG 1 tablet Orally bid for 5 days Feb, Active clonazePAM 0.5 mg oral tablet (3 sources) Benzodiazepine Start: 06-15-2024 End: 09-29-2024 take 1 tablet by mouth once daily at bedtime Clonazepam (Klonopin) 0.5 mg tablet Discontinued 0.5 MG PO Daily at bedtime June 15, 2024 1:00am September 29, 2024 9:31am cyclobenzaprine hydrochloride 10 mg oral tablet (19 sources) Muscle Relaxant Start: 01-21-2023 take 1 tablet by mouth every twenty-four hours Cyclobenzaprine HCl 10 MG 1 tablet at bedtime as needed Orally Once a day for 7 days Jan, Not-Taking doxycycline hyclate 100 mg oral capsule (2 sources) Tetracycline-class Drug Start: 11-16-2024 End: 11-24-2024 take 1 capsule by mouth twice daily Doxycycline Hyclate 100 mg capsule Discontinued 100 MG PO Twice daily November 16, 2024 11:24am November 24, 2024 2:50pm ferrous sulfate 325 mg oral tablet (8 sources) Start: 09-17-2023 End: 03-24-2024 take 1 tablet by mouth once daily Ferrous Sulfate 325 mg (65 mg iron) tablet Discontinued 325 MG PO Daily September 17, 2023 12:00am March 24, 2024 3:05pm FreeTextSi tablet Orally qd; Note: Source Status: Continue; Provider: Michelet Rick take 1 tablet by erika th every twenty-four hours Ferrous Sulfate 325 (65 Fe) MG 1 tablet Orally qd Active folic acid 0.8 mg / intrinsic factor 20 mg / vitamin b12 0.5 mg oral tablet (12 sources) Vitamin B12 Start: 11-09-2019 End: 09-17-2023 take 1 tablet by mouth once daily Vit [id number] Fact-Fa Cmb #2 (Intrinsi [id number]) 500-20-800 mcg-mg-mcg Tablet Discontinued 1 TAB PO Daily November 09, 2019 12:00am September 17, 2023 3:36pm hydroxocobalamin 1 mg/ml injectable solution (10 sources) Antidote Start: 11-12-2023 End: 03-24-2024 inject 1000 ug by intramuscular injection every week Hydroxocobalamin 1,000 mcg/mL solution Discontinued 1000 MCG IM every week November 12, 2023 12:00am November 12, 2023 3:09pm Start: 11-12-2023 End: 03-24-2024 inject 1000 ug by intramuscular injection every week Hydroxocobalamin Discontinued 1000 MCG IM every week November 12, 2023 12:00am November 12, 2023 3:09pm Magnesium (20 sources) Start: 11-09-2019 End: 09-17-2023 take 1 tablet by mouth once daily Magnesium 200 mg Tablet Discontinued 1 TAB PO Daily November 09, 2019 12:00am September 17, 2023 3:34pm Start: 11-09-2019 End: 09-17-2023 take 1 tablet [...] Discontinued 1000 MG IM Once a week 0.November 10, 2023 12:00am November 12, 2023 2:43pm methylcobalamin 12.5 mg/mL (3 sources) Start: 11-10-2023 End: 11-12-2023 inject 12.5 mg by intramuscular injection every week methylcobalamin 12.5 mg/mL Discontinued 1000 MG IM Once a week 0.November 10, 2023 12:00am November 12, 2023 2:43pm methylPREDNISolone 4 mg oral tablet (20 sources) Corticosteroid Start: 01-21-2023 methylPREDNISolone 4 MG as directed Orally with food for 6 days Jan, Not-Taking Medrol (Darwin) 4 M G as directed Orally for 6 days Not-Taking Multiple Vitamin (multivitamin) tablet (10 sources) End: 08-04-2024 take 1 tablet by mouth in the morning Multiple Vitamin (multivitamin) tablet Take 1 tablet by mouth in the morning. 08/04/2024 Discontinued (Therapy completed) take 1 tablet by mouth in the mo rning Multiple Vitamin (multivitamin) tablet Take 1 tablet by mouth in the morning. Active NON FORMULARY (3 sources) End: 05-18-2024 NON FORMULARY Vitamin B 12 I NJECTIONS 05/18/2024 Discontinued (Alternate therapy) NON FORMULARY Vi tamin B 12 INJECTIONS Active NON FORMULARY Vi tamin B 12 INJECTIONS 0 Active phenazopyridine hydrochloride 200 mg oral tablet (2 sources) Start: 09-29-2024 End: 10-20-2024 take 1 tablet by mouth three times daily Phenazopyridine (Pyridium) 200 mg tablet Discontinued 200 MG PO Three times daily 12 06September 29, 2024 12:00am October 20, 2024 12:44pm microencapsulated potassium chloride 10 meq extended release oral tablet (3 sources) End: 05-18-2024 take 1 tablet by mouth in the morning potassium chloride (K-TAB,KLOR-CON) 10 MEQ CR tablet Take 1 tablet (10 mEq total) by mouth in the morning and 1 tablet (10 mEq total) before bedtime. 05/18/2024 Discontinued (Therapy completed) predniSONE 10 mg oral tablet (9 sources) Start: 02-23-2023 End: 09-17-2023 Prednisone 10 mg tablet Discontinued 10 MG PO Daily February 23, 2023 12:00am September 17, 2023 3:35pm 60mg daily for three days, 40mg daily for three days, 20mg daily for three days, 10mg daily for three days. Sertraline (20 sources) Serotonin Reuptake Inhibitor Start: 11-10-2023 End: 03-24-2024 sertraline 2 mg capsule Discontinued 2 MG PO As Directed November 10, 2023 12:00am March 24, 2024 3:07pm 5 caps QD x7 then 4 caps QD x7 then 3 caps QD x7 then 2 caps QD x7 then 1 cap QD x7 then stop Start: 11-10-2023 End: 03-24-2024 sertraline Discontinued 2 [...] x7 then stop Start: 08-02-2020 End: 11-10-2023 take 1 tablet by mouth once daily Sertraline (Zoloft) 25 mg tablet Discontinued 12.5 MG PO Daily September 17, 2023 3:35pm November 10, 2023 4:03pm FreeTextSi tablet Orally Once a day; Note: [...] by mouth. tobramycin 3 mg/ml ophthalmic solution (12 sources) Aminoglycoside Antibacterial Start: 4 End: take 0.3 drop(s) into the eye(s) four times daily Tobramycin 0.3 % drops Discontinued 2 DROPS OPHTHALMIC Four times daily 11 10June 10, 2024 1:00am June 15, 2024 3:53pm 2 drops affected eye(s) four times a day x7 days Start: 04-10-2022 take 2 drop(s) into the eye(s) four times daily Tobramycin 0.3 % 2 drops Ophthalmic in right eye four times a day for 5 days Apr, Not-Taking Toradol 30 mg/ml (20 sources) Start: 01-21-2023 Toradol 30 mg/ml Jan, 30 mg traMADol hydrochloride 50 mg oral tablet (20 sources) Opioid Agonist Start: 02-15-2023 End: 09-17-2023 take 1 tablet by mouth twice daily as needed for pain Tramadol 50 mg tablet Discontinued 50 MG PO Twice daily as needed for Pain February 23, 2023 12:00am September 17, 2023 3:36pm triamcinolone acetonide 40 mg/ml injectable suspension (20 sources) Corticosteroid Start: 01-21-2023 Kenalog-40 Jan, 40 mg vitamin b12 1 mg/ml injectable solution (20 sources) Vitamin B12 Start: 11-09-2019 End: 11-10-2023 inject 1000 ug by intramuscular injection every 30 days Cyanocobalamin (Vitamin B-12) 1,000 mcg/mL Kit Discontinued 1000 MCG IM Q30D November 09, 2019 12:00am November 10, 2023 11:10am Start: 11-09-2019 End: 11-10-2023 inject 1000 ug [...] unspecified Episodi c Deficiency and other anemia (12 sources) Nutritional anemia; Translations: [Vitamin B12 deficiency anemia, unspecified] 07-06-2019 Episodic Comment on above: Problem List clean-u p per request of Phys. EHR Cmte Diseases of white blood cells (20 sources) Leukopenia; Translations: [Decreased white blood cell count, unspecified] Chronic E Codes: Natural/environment (2 sources) Bitten or stung by nonvenomous insect and other nonvenomous arthropods, initial encounter; Translations: [Cat scratch - wound] Onset: 01-10-20 22 Resolved : 01-10-20 Episodic Fluid and electrolyte disorders (2 sources) Hypokalemia [...] source) Unspecified conjunctivitis Episodic Malaise and fatigue (8 sources) Other fatigue; Translations: [Fatigue] Episodic Menopausal disorders (10 sources) Postmenopausal bleeding; Translations: [Postmenopausal bleeding] Onset: 09-30-19 24 09-30-2023 Chronic Menstrual disorders (20 sources) Amenorrhea; [...] 10-21-2023 Chronic Other aftercare (8 sources) Other group home (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 therapy; Translations: [[employer]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] Onset: 12-12-19 Resolved : 12-12-19 Episodic Other and unspecified benign neoplasm (4 sources) Lipoma (clinical); Translations: [Benign lipomatous neoplasm, unspecified] [...] source) Pain in right foot Episodic Other diseases of bladder and urethra (20 sources) Spasm of bladder; Translations: [Other specified disorders of bladder] Chronic Other diseases of bladder and urethra (1 source) Urethral stricture 05-30-2020 Episodic Other female genital disorders (1 source) Abnormal uterine bleeding; Translations: [Other specified abnormal uterine and vaginal bleeding] 10-26-2024 Chronic Other female genital disorders (1 source) Other specified abnormal uterine and vaginal bleeding; Translations: [Other specified abnormal uterine and vaginal bleeding] Onset: 10-27-19 Chronic Other female genital disorders (2 sources) Vaginal lesion; Translations: [Other specified noninflammatory disorders of vagina] 06-01-2024 Episodic Other gastrointestinal disorders (20 sources) Constipation; Translations: [Constipation, unspecified] 09-17-2023 Episodic Other gastrointestinal disorders (4 sources) Constipation, unspecified; Translations: [Constipation, unspecified] Onset: 07-06-20 Episodic Other hereditary and degenerative nervous system conditions (20 sources) Restless legs; Translations: [Restless legs syndrome] 04-02-2024 Chronic Other hereditary and degenerative nervous system conditions (3 sources) Restless legs syndrome Chronic Other inflammatory condition of skin (5 sources) Pruritus, unspecified; Translations: [Pruritus] 09-29-2024 Episodic Other lower respiratory disease (1 source) Other forms of dyspnea Episodic Other nervous system disorders (12 sources) Peripheral nerve disease ; Translations: [Polyneuropathy, [...] of skin Episodic Other nervous system disorders (9 sources) Fasciculation; Translations: [Abnormal involuntary movements] Onset: [...] fasciculation-cramp syndrome; Translations: [Fasciculation] 06-07-2024 Episodic Other nervous system disorders (2 sources) Paresthesia of left upper limb; Translations: [Paresthesia of skin] 01-03-2025 Episodic Other nutritional; endocrine; and metabolic disorders [...] conditions (not mental disorders or infectious disease) (5 sources) Endometrium thickened; Translations: [Abnormal findings on diagnostic imaging of other specified body structures] Onset: 10-27-1908-31-2024 Chronic Other screening for suspected conditions (not mental disorders or infectious disease) (20 sources) Encounter for screening mammogram for malignant [...] Resolved : 01-10-20 Chronic Other upper respiratory disease (3 sources) Nasal discharge; Translations: [Other specified disorders of nose and nasal sinuses] 09-29-2024 Episodic Other upper respiratory disease (2 sources) Other specified disorders of nose and nasal sinuses; Translations: [Other disease of nasal cavity and sinuses] 09-29-2024 Episodic Other upper respiratory infections (10 sources) Acute sinusitis, unspecified; Translations: [Laryngitis] Episodic Residual codes; unclassified (4 sources) Hypersomnia; Translations: [Hypersomnia, unspecified] 04-15-2024 Chronic Residual codes; unclassified (2 sources) Sleep-related groaning; Translations: [Other sleep disorders] 04-15-2024 Chronic Residual codes; unclassified (2 sources) Sleeptalking; Translations: [Other sleep disorders] 04-15-2024 Chronic Residual codes; unclassified (2 sources) Obstructive sleep apnea syndrome; Translations: [Obstructive sleep apnea (adult) (pediatric)] 04-15-2024 Chronic Residual codes; unclassified (3 sources) Periodic limb movement disorder; Translations: [Periodic limb movement disorder] 06-07-2024 Chronic Residual codes; unclassified (2 sources) Periodic limb movement disorder; Translations: [Periodic limb movement disorder] 09-29-2024 Chronic Residual codes; unclassified (2 sources) Periodic leg movements of sleep ; Translations: [Periodic limb movement disorder] 06-15-2024 Chronic Residual codes; unclassified (20 sources) Insomnia; Translations: [Insomnia, unspecified] Episodic Residual codes; unclassified (1 source) Family history of malignant neoplasm of ovary Episodic Residual codes; unclassified (4 sources) Disturbance in sleep behavior; Translations: [Sleep disorder, unspecified] 04-15-2024 Episodic Residual codes; unclassified (1 source) Chronic pain 04-02-2024 Episodic Residual codes; unclassified (2 sources) Postmenopausal state; Translations: [Asymptomatic menopausal state] 05-18-2024 Episodic Spondylosis; intervertebral disc disorders; other back problems (20 sources) Degeneration of intervertebral disc; Translations: [Other intervertebral disc degeneration, lumbar region] Chronic Spondylosis; intervertebral disc disorders; other back problems (18 sources) Spinal stenosis, site unspecified; Translations: [Nerve root disorder] Onset: 12-09-19 24 Episodic Thyroid disorders (20 sources) Thyroid nodule; Translations: [Nontoxic single thyroid nodule] Onset: 01-10-20 23 Chronic Unclassified (1 source) LOW BACK PAIN, UNSPECIFIED; Translations: [LOW BACK PAIN, UNSPECIFIED] Onset: 08-03-19 22 Unclassified (1 source) Low back pain, unspecified; Translations: [Low back pain, unspecified] Onset: 06-24-20 24 Unclassified (1 source) Mammographic heterogeneous density, bilateral breasts; Translations: [Mammographic heterogeneous density, bilateral breasts] Onset: 01-07-20 24 Unclassified (1 source) Breast Problem Onset: 06-23-20 24 Unclassified (1 source) Vaginal Lesions Onset: 06-01-20 24 Unclassified (1 source) Gynecologic Exam Onset: 05-18-20 24 Urinary tract infections (1 source) Cystitis, unspecified without hematuria Episodic Past or Other Problems Problem Classification Problem Date Documented Date Episodic/Chronic Abdominal pain (20 sources) Unspecified abdominal pain; Translations: [Right flank pain] Onset: 06-11-2021 Resolved: 01-09-2023 Episodic Anxiety disorders (20 sources) Anxiety; Translations: [Anxiety disorder, unspecified] Onset: 06-11-2021 Resolved: 09-30-2023 Chronic Nonmalignant breast conditions (14 sources) Mastodynia; Translations: [Heterogeneously dense breast composition] Onset: 01-07-2024 01-07-2024 Episodic Other connective tissue disease (1 source) History of osteopenia; Translations: [Personal history of other diseases of the musculoskeletal system and connective tissue] 05-18-2024 Episodic Other connective tissue disease (2 sources) Personal history of other diseases of the musculoskeletal system and connective tissue; Translations: [Personal history of other diseases of the musculoskeletal system and connective tissue] Onset: 05-18-2024 Episodic Other female genital disorders (2 sources) Other specified noninflammatory disorders of vagina; Translations: [Other specified noninflammatory disorders of vagina] Onset: 06-01-2024 Episodic Other injuries and conditions due to [...] Translations: [EFFUSION LEFT KNEE] Onset: 01-15-2022 Episodic Prolapse of female genital organs (20 sources) Cystocele; Translations: [Midline cystocele] Onset: 09-06-2020 Resolved: 09-30-2023 09-06-2020 Chronic Residual codes; unclassified (1 source) Insomnia, unspecified Onset: 06-11-2021 Resolved: 06-11-2021 Episodic Residual codes; unclassified (2 sources) Asymptomatic menopausal state; Translations: [Asymptomatic menopausal state] Onset: 05-18-2024 Episodic Unclassified (1 source) Cough R05.9 Onset: 01-09-2022 Resolved: 01-09-2022 Unclassified (10 sources) Lumbar pain M54.50 Unclassified (1 source) Patient encounter status 12-01-2024 Results Test Name Value Interpretation Reference Range Facility CT CARDIAC SCORING WO IV CON TRASTon 12-01-2024 CT CARDIAC SCORING WO IV CONTRAST Interpreted By: Ashish Hampton, ADDENDUM: NON-CARDIOVASCULAR FINDINGS INCLUDED LUNGS, AIRWAYS AND PLEURA Endotracheal / endobronchial lesion: Negative Nodule: Negative Airspace disease: Negative Pleural effusion: Negative Pneumothorax: Negative Other: No acute or contributory unanticipated findings INCLUDED NON-CARDIOVASCULAR LISANDRA AND MEDIASTINUM Adenopathy: Negative Included esophagus: Unremarkable Other: No acute or contributory unanticipated findings INCLUDED BONES: No acute skeletal findings, noting less sensitivity and specificity without dedicated sagittal and coronal reformatted series. INCLUDED CHEST WALL No acute or contributory unanticipated findings INCLUDED UPPER ABDOMEN No acute or contributory unanticipated findings ------- NON-CARDIOVASCULAR IMPRESSION NO ACUTE OR CONTRIBUTORY UNEXPECTED FINDINGS OF THE INCLUDED NON-CARDIOVASCULAR STRUCTURES NOTE THIS ADDENDUM IS SOLELY FOR INTERPRETATION OF ANATOMY OUTSIDE THE CARDIOVASCULAR SYSTEM. INTERPRETATION OF AND REPORTING OF THE CARDIOVASCULAR STRUCTURES ARE THE SOLE RESPONSIBILITY OF THE FRONTLOAD DRIVER SUBMITTING THE ORIGINAL REPORT (NOT THIS ADDENDUM) Signed by: Ashish Hampton 12/02/2024 4:05 PM -------- ORIGINAL REPORT -------- Dictation workstation: [id number] Interpreted By: Florentin Carl, STUDY: CT CARDIAC SCORING WO IV CONTRAST; 12/01/2024 6:07 pm INDICATION: Signs/Symptoms:screeni ng. COMPARISON: None. ACCESSION NUMBER(S): [id number] ORDERING CLINICIAN: YANNICK VELÁZQUEZ TECHNIQUE: Using prospective ECG gating, CT scan of the coronary arteries was performed without intravenous contrast. Coronary calcium scoring was performed according to the method of Agatston. CT Dose-Length Product (DLP): 83.6 mGy*cm CT Dose Reduction Employed: Yes, prospective gating, iterative reconstruction. FINDINGS: The score and distribution of calcium in the coronary arteries is as follows: LM 0 LAD 0 LCx 0 RCA 0 Total 0 The visualized mid/lower ascending thoracic aorta measures 3.2 cm in diameter. The heart is normal in size. Small pericardial effusion is present. IMPRESSION: 1. Coronary artery calcium score of 0*. *Coronary artery calcium scoring may be helpful in predicting the risk for future coronary heart disease events. According to the [place] [employer] Clinical Expert Consensus Task Force, such testing provides important prognostic information in patients with more than one coronary heart disease risk factor. The coronary artery calcium score correlates with the annual risk of a non-fatal myocardial infarction or coronary heart disease . Coronary artery score Annual Risk 0-99 0.4% 100-399 1.3% >400 2.4% These three breakpoints correspond to lower, intermediate and high risk states for future coronary events. Such information should be used, along with appropriate clinical judgment, to make decisions regarding the intensity of risk factor management strategies to treat blood lipids and to modify other non-lipid coronary risk factors. Reference: Malvin P et al. Circulation. 2007; 115:402-426 Reading .Net Architect: Dr. Florentin Carl, Date: 12/02/2024 3:53 pm Signed by: Florentin Carl 12/02/2024 3:53 PM Dictation workstation: [id number] [facility] POCT , urineon 10-06 Beta HCG ( test) Ql (U) Negative [facility] Interpretation and review of laboratory results Normal [facility] Surgical Pathologyon 025 Surgical Pathology Normal [facility] Comment on above: Result Comment: [facility] [address] [place] [address] Surgical Pathology Consultation Patient Name:EDNA SULTANA:1965 (Age: 59)Gender:FTaken:10/26/2024Reported:11/03/2024Physician(s):Katia Whitt M.D. ([phone])Copy To: Rec. #:[id number]: #[id number] Final Pathologic Diagnosis 1. Endocervical curettings: Negative for dysplasia 2. Endometrial biopsy: Strips and fragments of endometrial lining without atypia Cervical mucosa negative for dysplasia No intact endometrial glands and stroma for microscopic evaluation Report Electronically Signed Out nsk/11/03/2024Jonna Mei MD Interpretation performed at [facility] [place] [address], License number: [id number]. Clinical History Thickened endometrium R93.89. Gross Description 1. Received in formalin labeled, KAYY, ECC is a plastic metal brush with is a pale-roldan mucoid material mixed with pale-roldan friable scant soft tissue fragments, 1.3 x 0.5 x 0.1 cm in aggregate. The specimens are filtered and submitted in a single cassette. (1, ns, [id number], m1) TB 2. Received in formalin labeled, KAYY, EMB is a pale roldan mucoid material mixed with scant roldan friable soft tissue fragments and scant roldan-brown hemorrhagic material, 2.2 x 0.7 x 0.1 cm in aggregate. The specimens are filtered and submitted in a single cassette. Time incised: 1458 Time in formalin: 1458 Cold ischemic time: Less than 1 minute Time in formalin before processin.5 hours (1, ns, [id number], m2) TB tgb/10/27/2024RG Specimen(s) Received 1: Endocervical curettings 2: Endometrial biopsy Fee Codes(s): 1; 84333 2; 46979 MAMM DIAGNOSTIC UNILAT LT W CADon 07-01-2024 MAMM DIAGNOSTIC UNILAT LT W CAD MAMM DIAGNOSTIC UNILAT LT W CAD EDNA TUCKERRIGHT 1965 [id number], [id number] EXAM: MAMM DIAGNOSTIC UNILAT LT W CAD, [...] 2:17 PM 1 c MBI CONT Normal [facility] US BREAST LT LIMITEDon 07-01 US BREAST LT LIMITED US BREAST LT LIMITEdie SULTANA 1965 [id number], [id number] EXAM: MAMM DIAGNOSTIC UNILAT LT W CAD, [...] 2:17 PM 1 c MBI CONT Normal [facility] MR lumbar spine wo conon MR lumbar spine wo con [facility] [place] [address] [place] [address] MRI Report Signed Patient: Edna Sultana MR#: [id number] : 1965 Acct:[id number] Age/Sex: 58 / F ADM Date: 06/24/24 Loc: [facility] Room: Type: [facility] CLI Attending Dr: Ivy Garcia APRN Copies to: [...] foraminal stenosis. Impression dictated by: Pranay Thomson Jr. DRenetta06/24/2024 11:02 AM Dictation Location: [place] [address] Transcribed By: RODERICK 06/24/24 1102 Dictated By: Pranay Thomson Jr, DO 06/24/24 1059 Signed By: 06/24/24 1102 Normal [facility] US PELVIC WITH TRANSVAGINALo n [...] Quinn MD on 06/18/2024 7:00 AM Normal [facility] MBI LOCALIZATION LMTD ARE Aon 06-11-2024 NM MBI LOCALIZATION LMTD AREA NM MBI LOCALIZATION LMTD AREA EDNA RODRIGUEZHT 1965 [id number] EXAM: NM MBI LOCALIZATION LMTD AREA, 06/11/2024 2:03 PM CLINICAL INDICATIONS: Heterogeneously dense tissue of both breasts on mammography, Supplemental screening for dense breast tissue COMPARISON: Screening mammogram 01/07/2024. No previous MBI TECHNICAL: The patient was injected intravenously with 8.1 mCi Tc Sestamibi. Dynamic imaging acquisition was initiated within 5 minutes using a Aeropost dual head, planar, solid state digital system with cadmium zinc telluride (CZT) detectors. Cranio-caudal and medio-lateral oblique views of each breast were obtained with light compression. FINDINGS: There is normal distribution of the tracer throughout both breasts. No significant abnormalities were seen in either breast. There are no focal areas of increased activity to suggest neoplasm. IMPRESSION: No scintigraphic evidence of malignancy. BI-RADS: BI-RADS 1 - Negative Recommendation: Continued yearly mammogram with MBI every other year. Finalized by Verenice Woods MD on 06/11/2024 3:05 PM 1 MBI CONT [facility] MR Brain WO and W contrast I Von 06-10-2024 IMPRESSION: Unchanged examination. Nonenhancing T2/FLAIR hyperintense lesion in the anterior right temporal lobe is unchanged from 12/09/2023. Contact Center Agent: PSCFan Transcribe Date/Time: Jun 10 2024 11:32A Dictated by : YAEL HOUSE MD This examination was interpreted and the report reviewed and electronically signed by: YAEL HOUSE MD on Jun 10 2024 11:42AM [facility] DIVISION OF RADIOLOGY * * *Final Report* * * DATE OF EXAM: Jun 10 2024 11:12AM [facility] 0295 - MRI BRAIN WO/W IVCON / [...] are unremarkable. DIVISION OF RADIOLOGY [facility] * * *Final Report* [...] right temporal lobe is unchanged from 12/09/2023. Contact Center Agent: PSCB Transcribe Date/Time: Jun 10 2024 11:32A Dictated by : YAEL HOUSE MD This examination was interpreted and the report reviewed and electronically signed by: YAEL HOUSE MD on Jun 10 2024 11:42AM EST [facility] Radiology Study observation (narrative) [facility] MR Brain WO and W contrast I VOrdered By: Ccf Provider on 06-10-2024 [facility] DEXA SCAN CENTRAL SKELETALon 05-31-2024 DEXA SCAN [...] Arreguin MD on 05/31/2024 3:41 PM Normal [facility] URINALYSISon 05-18-2024 Bilirubin Ql (U) Negative Normal NEG [facility] Comment on above: Performed By: #### U A #### [facility] ([id number]) [address], [address] [place] [address] BLOOD/HGB Negative Normal NEG [facility] Comment on above: Performed By: #### U A #### [facility] ([id number]) [address] [place] [address] Color (U) YELLOW Normal YELLOW [facility] Comment on above: Performed By: #### U A #### [facility] ([id number]) [address], [address] [place] [address] Glucose Ql (U) Negative Normal NEG [facility] Comment on above: Performed By: #### U A #### [facility] ([id number]) [address] [place] [address] Ketones Ql (U) Negative Normal NEG [facility] Comment on above: Performed By: #### U A #### [facility] ([id number]) [address] [place] [address] Leukocyte esterase Test strip Ql (U) Negative Normal NEG [facility] Comment on above: Performed By: #### U A #### [facility] ([id number]) [address] [place] [address] Nitrite Ql (U) Negative Normal NEG [facility] Comment on above: Performed By: #### U A #### [facility] ([id number]) [address] [place] [address] pH (U) 6.5 [pH] Normal 5.0-8.5 [facility] Comment on above: Performed By: #### U A #### [facility] ([id number]) [address], [address] [place] [address] Protein Ql (U) Negative Normal NEG [facility] Comment on above: Performed By: #### U A #### [facility] ([id number]) [address] [place] [address] Specific gravity (U) [Rel density] 1.013 Normal 1.003-1.035 [facility] Comment on above: Performed By: #### U A #### [facility] ([id number]) [address] [place] [address] TURBIDITY CLEAR Normal CLEAR [facility] Comment on above: Performed By: #### U A #### [facility] ([id number]) [address] [place] [address] Urobilinogen (U) [Mass/Vol] mg/dL Normal <1.1 [facility] Comment on above: Performed By: #### U A #### [facility] ([id number]) [address] [place] [address] URINE CULTUREon 05-18-2024 Bacteria identified Cx Nom (U) CULTURE RESULTS NO GROWTH AT <1000 CFU/mL Normal [facility] Comment on above: Performed By: #### 6 30-4 #### [facility] ([id number]) [address] [place] [address] URINE CULTURE, ROUTINEon Bacteria identified Cx Nom [...] Bacteria identified Cx Nom (U) Performed at: [facility] Bacteria identified Cx Nom (U) [address] [place], [place] [id number] [facility] Bacteria identified Cx Nom (U) Pit Inspector: Tha Jimenez PhD, Phone: [phone] [facility] Ambulatory Visit Summaryon 1 Ambulatory Visit [...] for choosing us for your care. Normal [facility] Basophil percentageon 2023 Basophil percentage 99 ug/dL 80-155 [facility] Comment on above: This test was leah green, and its performance characteristics determined by the [facility] Department of Pathology and Laboratory Medicine. It has not been cleared or approved by the FDA. The [facility] Department of Pathology and Laboratory Medicine is regulated under CLIA as qualified to perform high-complexity testing. This test is used for clinical purposes. It should not be regarded as investigational or for research. CELIAC SCREENon 03-23-2024 GLIAD DEAMIDATED IGA QUAL Negative Normal Negative, Test not Indicated [facility] Comment on above: Order Comment: Speci men Type: BLOOD SPECIMEN Ordering Facility: [facility] Address: [address] [place] [address] Result Comment: This is used as an aid in diagnosis of celiac disease. Clinical correlation is required. The following results were obtained with an Inova QUANTA Lite Gliadin IgA ANGELA Gliadin. Gliadin IgA values obtained with different manufacturers' assay methods may not be used interchangeably. The magnitude of the reported IgA levels cannot be correlated to an endpoint titer. Performed By: #### C LAXMI, 5763-8 #### [facility] CLIA [id number] [address] [place] [address] [place] Gliadin peptide IgA Qn (S) 4 Units Normal <20 [facility] Comment on above: Order Comment: Speci men Type: BLOOD SPECIMEN Ordering Facility: [facility] Address: [address] [place] [address] Performed By: #### C LAXMI, 5763-8 #### [facility] CLIA [id number] [address] [place] [address] [place] INTERPRETATION No serological evidence of celiac disease, however, if celiac disease is clinically suspected and patient is not on gluten-free diet, histological diagnosis may be considered. HLA testing may help with risk assessment. Normal [facility] Comment on above: Order Comment: Kraig sandoval Type: BLOOD SPECIMEN Ordering Facility: [facility] Address: [address] [place] [address] Performed By: #### Chelsea HAIR, 5763-8 #### [facility] CLIA [id number] [address] [place] [address] [place] TRANSGLUTAMINASE IGA ABS INTERPRETATION Negative Normal Negative [facility] Comment on above: Order Comment: Kraig sandoval Type: BLOOD SPECIMEN Ordering Facility: [facility] Address: [address] [place] [address] Result Comment: The following results were obtained [...] Performed By: #### C LAXMI, 5763-8 #### [facility] CLIA [id number] [address] [place] [address] [place] tTG IgA Qn (S) <2 Normal <4 [facility] Comment on above: Order Comment: Speci men Type: BLOOD SPECIMEN Ordering Facility: [facility] Address: [address] [place] [address] Performed By: #### Chelsea HAIR, 5763-8 #### [facility] CLIA [id number] [address] [place] [address] [place] CNOVon 03-23-2024 CNOV Office Visit (NENMMN ) EDNA SLUTANA ([id number]) 1965 F Date Time Provider Department 03/23/24 3:[address] [facility] During your visit today, we recorded the [...] which included preparing to see the patient, boch-pt-blle patient care, completing clinical documentation, obtaining and/or reviewing separately obtained history, performing a medically appropriate examination, counseling and educating the patient/family/caregiv er, and ordering medications, tests, or procedures. Janna Gilman MD cc: Abiodun Castano [phone] [facility] [address] Edna Rodriguezht [id number] [address] [facility] [address] Referring Provider: ABIODUN CASTANO [2065] Allergies As of Date: 03/23/2024 Noted Allergy Reaction ADHESIVE 05/20/2006 9 - Itching 2 - Rash 7 - Swelling ADHESIVE TAPE-SILICONES 09/06/2020 2 - Rash 4 - Hives FLUOROURACIL-ADHESIVE BANDAGE 12/16/2018 2 - Rash Date Reviewed: 03/23/2024 Reviewed by: Jaci Burton OCCA - (more content not included)... Normal [facility] COPPER BLOODon 03-23-2024 Copper [Mass/Vol] 99 ug/dL Normal 80-155 [facility] Comment on above: Order Comment: Speci men Type: BLOOD SPECIMEN Ordering Facility: [facility] Address: [address] [place] [address] Result Comment: This test was developed, and its performance characteristics determined by the [facility] Department of Pathology and Laboratory Medicine. It has not been cleared or approved by the FDA. The [facility] Department of Pathology and Laboratory Medicine is regulated under CLIA as qualified to perform high-complexity testing. This test is used for clinical purposes. It should not be regarded as investigational or for research. Performed By: #### C LAXMI, 5763-8 #### [facility] CLIA [id number] [address] [place] [address] [place] [address] [place] Ceruloplasmin SerPl-mCncon 0 03-23-2024 Ceruloplasmin [Mass/Vol] 26 mg/dL Normal 16-45 [facility] Comment on above: Order Comment: Speci men Type: BLOOD SPECIMEN Ordering Facility: [facility] Address: [address] [place] [address] Performed By: #### 2 064-4 #### [facility] CLIA [id number] [address] [place] [address] [place] IMMUNOFIXATION SCREEN, SERUM on 03-23-2024 MPA RESULT No M protein is identified. Normal No M protein is identified. [facility] Comment on above: Order Comment: Speci men Type: BLOOD SPECIMEN Ordering Facility: [facility] Address: [address] [place] [address] Performed By: #### Chelsea HAIR, 5763-8 #### [facility] CLIA [id number] [address] [place] [address] [place] STAFF REVIEW (MPA) Reviewed by Dr. Ania Melo MD [facility] Comment on above: Order Comment: Speci men Type: BLOOD SPECIMEN Ordering Facility: [facility] Address: [address] [place] [address] Performed By: #### Chelsea HAIR, 5763-8 #### [facility] CLIA [id number] [address] [place] [address] [place] IgA SerPl-mCncon 03-23-2024 IgA [Mass/Vol] 242 mg/dL Normal 70-400 [facility] Comment on above: Order Comment: Speci men Type: BLOOD SPECIMEN Ordering Facility: [facility] Address: [address] [place] [address] Performed By: #### Chelsea HAIR, 5763-8 #### [facility] CLIA [id number] [address] [place], [place] [address] [place] IgA [Mass/volume] in Serum o r Plasmaon 03-23-2024 IgA [Mass/Vol] 242 mg/dL 70-400 [facility] Immunoglobulin light chains. kappa.free [Mass/volume] in Serumon 03-23-2024 Immunoglobulin light chains.kappa.free (S) [Mass/Vol] 10.8 mg/L 3.3-19.4 [facility] Comment on above: Rarely, increased se rum free light chains levels may not be detected or accurately quantified due to prozone phenomenon or in high viscosity samples using this immunoturbidimetric assay. Correlation with other laboratory results and clinical findings is recommended. The [place] Free Light Chain was performed using the Binding Site Optilite immunoturbidimetric method. Result obtained with different assay methods or kits cannot be used interchangeably. Immunoglobulin light chains. kappa.free/Immunoglobulin light chains.lambda.free [Sharon 03-23-2024 Immunoglobulin light chains.kappa.free/Im munoglobulin light chains.lambda.free (S) [Mass ratio] 1.30 0.26-1.65 [facility] Immunoglobulin light chains. lambda.free [Mass/volume] in Serum or Plasmaon 03-23-2024 Immunoglobulin light chains.lambda.free [Mass/Vol] 8.3 mg/L 5.7-26.3 [facility] Comment on above: Rarely, increased se [...] chains.kappa.free (S) [Mass/Vol] 10.8 mg/L Normal 3.3-19.4 [facility] Comment on above: Order Comment: Speci men Type: BLOOD SPECIMEN Ordering Facility: [facility] Address: [address] [place] [address] Result Comment: Rare ly, increased serum free light chains levels may not be detected or accurately quantified due to prozone phenomenon or in high viscosity samples using this immunoturbidimetric assay. Correlation with other laboratory results and clinical findings is recommended. The [place] Free Light Chain was performed using the Binding Site Optilite immunoturbidimetric method. Result obtained with different assay methods or kits cannot be used interchangeably. Performed By: #### Chelsea HAIR, 5763-8 #### [facility] CLIA [id number] [address] [place] [address] [place] Immunoglobulin light chains.kappa/Immunog lobulin light chains.lambda (S) [Mass ratio] 1.30 Normal 0.26-1.65 [facility] Comment on above: Order Comment: Speci men Type: BLOOD SPECIMEN Ordering Facility: [facility] Address: [address] [place] [address] Performed By: #### Chelsea HAIR, [id number] #### [facility] CLIA [id number] [address] [place] [address] [place] Immunoglobulin light chains.lambda.free [Mass/Vol] 8.3 mg/L Normal 5.7-26.3 [facility] Comment on above: Order Comment: Speci men Type: BLOOD SPECIMEN Ordering Facility: [facility] Address: [address] [place] [address] Result Comment: Rare ly, increased serum free [...] Performed By: #### Chelsea HAIR, [id number] #### [facility] CLIA [id number] [address] [place] [address] [place] No Panel Informationon 03-23 Gliadin (Deamidated) IgA Ab Interp Negative Negative, Test not Indicated [facility] Comment on above: This is used as an a id in diagnosis of celiac disease. Clinical correlation is required.The following results were obtained with an Project [employer] QUANTA Lite Gliadin IgA ANGELA Gliadin. Gliadin IgA values obtained with different manufacturers' assay methods may not be used interchangeably. The magnitude of the reported IgA levels cannot be correlated to an endpoint titer. Miscellaneous Test Comment [facility] Tissue Transglutaminase IgA Interp Negative Negative [facility] Comment on above: The following result s were obtained with Wishberg[employer] Lite R h-tTG IgA ANGELA.???R h-tTG IgA values obtained with different manufacturers' assay methods may not be used interchangeably. The magnitude of the reported IgA levels cannot be corelated to an endpoint???concentration.This is used as an aid in diagnosis of celiac disease. Clinical correlation is required. Plasma zinc measurementon Zinc [Mass/Vol] 72 ug/dL 60-120 [facility] Comment on above: This test was devbubba ped, and its performance characteristics determined by the [facility] Department of Pathology and Laboratory Medicine. It has not been cleared or approved by the FDA. The [facility] Department of Pathology and Laboratory Medicine is regulated under CLIA as qualified to perform high-complexity testing. This test is used for clinical purposes. It should not be regarded as investigational or for research. Serum gliadin peptide IgA an tibody assay (units/volume)on 03-23-2024 Gliadin peptide IgA Qn (S) 4 Units <20 [facility] Serum or plasma ceruloplasmi n measurement (mass/volume)on 03-23-2024 Ceruloplasmin [Mass/Vol] 26 mg/dL 16-45 [facility] Serum tissue transglutaminas e (tTG) IgA antibody assay (units/volume)on 03-23-2024 tTG IgA Qn (S) <2 U/mL <4 [facility] Zinc SerPl-mCncon 03-23-2024 Zinc [Mass/Vol] 72 ug/dL Normal 60-120 [facility] Comment on above: Order Comment: Speci men Type: BLOOD SPECIMEN Ordering Facility: [facility] Address: [address] [place] [address] Result Comment: This test was developed, and its performance characteristics determined by the [facility] Department of Pathology and Laboratory Medicine. It has not been cleared or approved by the FDA. The [facility] Department of Pathology and Laboratory Medicine is regulated under CLIA as qualified to perform high-complexity testing. This test is used for clinical purposes. It should not be regarded as investigational or for research. 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 Normal [facility] MR Brain WO and W contrast I [...] toxic/metabolic insult is also within the differential. Contact Center Agent: MICHAEL Transcribe Date/Time: Dec 09 2023 11:06A Dictated by : MARY COWART MD This examination was interpreted and the report reviewed and electronically signed by: MARY COWART MD on Dec 09 2023 11:11AM [facility] DIVISION OF RADIOLOGY * * *Final Report* * * DATE OF EXAM: Dec 09 2023 11:06AM [facility] 0295 - MRI BRAIN WO/W IVCON / [...] tissues are unremarkable. DIVISION OF RADIOLOGY Provider, [facility] - 12/09/2023 * * *Final Report* * * DATE OF EXAM: Dec 09 2023 11:06AM [facility] 0295 - MRI BRAIN WO/W IVCON / [...] toxic/metabolic insult is also within the differential. Contact Center Agent: MICHAEL Transcribe Date/Time: Dec 09 2023 11:06A Dictated by : MARY COWART MD This examination was interpreted and the report reviewed and electronically signed by: MARY COWART MD on Dec 09 2023 11:11AM [facility] MR Brain WO and W contrast I VOrdered By: Ccf Provider on 12-09-2023 [facility] MR Cervical spine WO and [...] vertebrae with counting from the craniocervical junction. Contact Center Agent: MICHAEL Transcribe Date/Time: Dec 09 2023 11:12A Dictated by : MARY COWART MD This examination was interpreted and the report reviewed and electronically signed by: MARY COWART MD on Dec 09 2023 11:20AM [facility] DIVISION OF RADIOLOGY * * *Final Report* * * DATE OF EXAM: Dec 09 2023 11:06AM [facility] 0298 - MRI CERVICAL SPINE WO/W IVCON [...] or foraminal stenosis. DIVISION OF RADIOLOGY Provider, [facility] - 12/09/2023 * * *Final Report* * * DATE OF EXAM: Dec 09 2023 11:06AM [facility] 0298 - MRI CERVICAL SPINE WO/W IVCON [...] vertebrae with counting from the craniocervical junction. Contact Center Agent: MICHAEL Transcribe Date/Time: Dec 09 2023 11:12A Dictated by : MARY COWART MD This examination was interpreted and the report reviewed and electronically signed by: MARY COWART MD on Dec 09 2023 11:20AM EST [facility] MR Cervical spine WO and W c ontrast IVOrdered By: Ccf Provider on 12-09-2023 [facility] MR Thoracic spine WO and [...] discrepancies from the craniocervical and lumbosacral junctions. Contact Center Agent: Cable-SenseB Transcribe Date/Time: Dec 09 2023 11:20A Dictated by : MARY COWART MD This examination was interpreted and the report reviewed and electronically signed by: MARY COWART MD on Dec 09 2023 11:23AM [facility] DIVISION OF RADIOLOGY * * *Final Report* * * DATE OF EXAM: Dec 09 2023 11:06AM [facility] 0326 - MRI THORACIC SPINE WO/W IVCON [...] discrepancies from the craniocervical and lumbosacral junctions. Contact Center Agent: PSCB Transcribe Date/Time: Dec 09 2023 11:20A Dictated by : MARY COWART MD This examination was interpreted and the report reviewed and electronically signed by: MARY COWART MD on Dec 09 2023 11:23AM EST [facility] Radiology Study observation (narrative) [facility] MR Thoracic spine WO and W c ontrast IVOrdered By: Ccf Provider on 12-09-2023 [facility] MRI BRAIN WO/W IVCONon 12-08 [...] toxic/metabolic insult is also within the differential. Contact Center Agent: MICHAEL Transcribe Date/Time: Dec 09 2023 11:06A Dictated by : MARY COWART MD This examination was interpreted and the report reviewed and electronically signed by: MARY COWART MD on Dec 09 2023 11:11AM EST [id number] Normal [facility] MRI CERVICAL SPINE WO/W IVCO Non 12-09-2023 MRI CERVICAL SPINE WO/W IVCON * * *Final Report* * * DATE OF EXAM: Dec 09 2023 11:06AM [facility] 0298 - MRI CERVICAL SPINE WO/W IVCON [...] vertebrae with counting from the craniocervical junction. Contact Center Agent: PSCFan Transcribe Date/Time: Dec 09 2023 11:12A Dictated by : MARY COWART MD This examination was interpreted and the report reviewed and electronically signed by: MARY COWART MD on Dec 09 2023 11:20AM EST [id number] Normal [facility] MRI THORACIC SPINE WO/W IVCO Non 12-09-2023 [...] discrepancies from the craniocervical and lumbosacral junctions. Contact Center Agent: PSCB Transcribe Date/Time: Dec 09 2023 11:20A Dictated by : MARY COWART MD This examination was interpreted and the report reviewed and electronically signed by: MARY COWART MD on Dec 09 2023 11:23AM EST [id number] Normal [facility] No Panel Informationon 12-08 Radiology Study observation (narrative) [facility] CNPJamee 11-06-2023 CNPN Telephone (SPMEST) EDNA SULTANA ([id number]) 1965 F Date Time Provider Department 11/06/23 ABIODUN CASTANO During your visit today, we recorded the following information about you: Kimberly Huose MA 11/06/2023 7:26 AM Signed end Kimberly [...] for Encounter Date Provider Department Center 11/06/20232065-ABIODUN CASTANOEST [facility] Encounter Status:Closed by [facility] on 11/06/23 [facility] EDNA SULTANA ([id number]) 1965 F Date Time Provider Department 11/05/23 ABIODUN CASTANOEST During your visit today, we recorded the following information about you: Abiodun Castano, 11/05/2023 6:21 PM Signed Received communication from [...] recommendation. I will send the patient a CommitChange message also so she is aware. Devin [...] Status:Closed by ABIODUN CASTANO on 11/06/23 Normal [facility] 10-28-2023 CNPN Telephone (SPMEST) EDNA SULTANA ([id number]) 1965 F Date Time Provider Department 10/28/23 [...] Fully Assessed Reason for Visit: MRI Appointment [6219] Follow Up [171] Prescriptions as of 11/03/2023 [...] Encounter Date Provider Department Center 10/28/20232065-ABIODUN CASTANO SPMEST [facility] Encounter Status:Closed by [employer] on 11/03/23 Normal [facility] Automated epithelial cells c ount in urine sediment (number/area)on 10-25-2023 Epithelial cells Auto (Urine sed) [#/Area] NONE SEEN #/LPF NONE/RARE [facility] Automated leukocytes count i n urine sediment (number/area)on 10-25-2023 WBC Auto (Urine sed) [#/Area] 5-10 #/HPF 0-2 [facility] Automated urine specific gra vity by refractometryon 10-25-2023 Specific gravity Refractometry automated (U) [Rel density] 1.025 1.005-1.025 [facility] Bilirubin Auto test strip (U ) [Mass/Vol]on 10-25-2023 Bilirubin (U) [Mass/Vol] COLOR INTERFERENCE NEGATIVE [facility] Casts typing in urine sedime nt by light microscopyon 10-25-2023 Casts LM Nom (Urine sed) NONE SEEN #/LPF NONE SEEN [facility] Color Auto (U)on 10-25-2023 Color (U) ORANGE YELLOW [facility] Ketones Auto test strip (U) [Mass/Vol]on 10-25-2023 Ketones (U) [Mass/Vol] COLOR INTERFERENCE mg/dL NEGATIVE [facility] Mucus LM Ql (Urine sed)on Mucus Ql (Urine sed) NONE SEEN NONE SEEN [facility] Protein Auto test strip (U) [Mass/Vol]on 10-25-2023 Protein (U) [Mass/Vol] COLOR INTERFERENCE mg/dL NEG/TRACE [facility] Specific gravity Auto test s trip (U) [Rel density]on 10-25-2023 Specific gravity (U) [Rel density] CLEAR CLEAR [facility] Urine bacteria detection by automated methodon 10-25-2023 Bacteria Auto Ql (U) TRACE #/HPF NONE SEEN [facility] Urine glucose measurement by test strip (mass/volume)on 10-25-2023 Glucose Test strip (U) [Mass/Vol] COLOR INTERFERENCE mg/dL NEGATIVE [facility] Urine hemoglobin detection b y automated test stripon 10-25-2023 Hemoglobin Auto test strip Ql (U) COLOR INTERFERENCE NEGATIVE [facility] Urine nitrite detection by a utomated test stripon 10-25-2023 Nitrite Auto test strip Ql (U) COLOR INTERFERENCE NEGATIVE [facility] Urine sediment crystal ident ification by light microscopyon 10-25-2023 Crystals LM Nom (Urine sed) None Seen #/HPF None Seen [facility] Urine sediment leukocyte cou nt by microscopy (number/high power field)on 10-25-2023 WBC LM.HPF (Urine sed) [#/Area] 0-2 #/HPF NONE SEEN [facility] Urobilinogen Auto test strip (U) [Mass/Vol]on 10-25-2023 Urobilinogen (U) [Mass/Vol] COLOR INTERFERENCE EU/dL 0.2-1.0 [facility] pH Auto test strip (U)on pH (U) COLOR INTERFERENCE 5.0-9.0 [facility] CNOVon 10-21-2023 CNOV Office Visit (SPMEST ) KAYYBIANCAEDNA Surjit ([id number]) 1965 F Date Time Provider Department 10/21/23 [...] 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 Normal [facility] Laboratory - Chemistry and C hemistry - challengeon 10-07-2023 Cobalamin (Vitamin B12) [Mass/Vol] 913 pg/mL [facility] Ferritin [Mass/Vol] 87 ng/mL [facility] Neurosurgery Office/Clinic N oteon 05-27-2023 Neurosurgery Office/Clinic Note Chief Complaint Back follow up-MRI @ [facility] 03/29 Physical Exam Vitals & Measurements HR: [...] attempted healthier diet from her previously standard [place] diet and noted significant improvement in sense [...] prompted her to visit a neurosurgeon at [facility]. An MRI was ordered and no surgical [...] as A (more content not included)... Normal [facility] Urinalysis - AUTOMATEDon Appearance (U) clear [employer] Other Bilirubin Ql (U) Negative [employer] Other Color (U) light yellow [employer] Other Glucose Ql (U) Negative [employer] Other Hemoglobin Ql (U) trace-intact [employer] Other Ketones Ql (U) Negative [employer] Other Leukocyte esterase Test strip Ql (U) Negative [facility] Other Nitrite Ql (U) Negative [employer] Other pH (U) 7.5 [pH] [employer] Other Protein Ql (U) Negative [employer] Other Specific gravity (U) [Rel density] 1.015 [facility] Other Urobilinogen (U) [Mass/Vol] 0.2 mg/dL [facility] Other Urinalysis - AUTOMATED [employer] Other MR lumbar spine wo conon MR lumbar spine wo con [facility] [employer] Other MR lumbar spine wo con [facility] [employer] Other MR lumbar spine wo con [address] [facility] [employer] [place] [address] [employer] Other MR lumbar spine wo con XRay Report [employer] Other MR lumbar spine wo con Signed [employer] [facility] Other MR lumbar spine wo con Patient: Edna Sultana MR#: [id number] [facility] Other MR lumbar spine wo con 2916 [facility] Other MR lumbar spine wo con : 1965 Acct:[id number] [facility] Other MR lumbar spine wo con Age/Sex: 56 / F ADM Date: 08/28/22 [facility] Other MR lumbar spine wo con Loc: MR Room: Type: REG CLI [facility] Other MR lumbar spine wo con Attending Dr: Yannick Velázquez DO [employer] Other MR lumbar spine wo con Copies to: Yannick Velázquez, [facility] [employer] Other MR lumbar spine wo con Ordering Provider: Yannick Velázquez DO [facility] Other MR lumbar spine wo con Date of Service: 08/28/22 [facility] Other MR lumbar spine wo con MR/MR lumbar spine wo con: M54.50 M48.0 M51.35 [facility] Other MR lumbar spine wo con ([id number]) XR/XR pre/post mri xray: PRE MRI OF THE LUMBAR [employer] [facility] Other MR lumbar spine wo con CLINICAL DATA: Chronic back pain with bilateral toe numbness. No injury. [facility] Other MR lumbar spine wo con PRE-MRI LUMBAR SPINE - 2 views [employer] Other MR lumbar spine wo con COMPARISON: 05/11/2020 [employer] Other MR lumbar spine wo con Standing AP and lateral views were obtained. 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 [employer] Other MR lumbar spine wo con There are no developing fractures. There is still slight retrolisthesis of L2 on L3, L3 on L4 and [employer] Other MR lumbar spine wo con L4 and L5. There is mild disc space narrowing and anterior endplate sclerosis at L2-3. There is [employer] Other MR lumbar spine wo con also some disc space narrowing at L3-4. Mild endplate spurring is seen. There is mid and lower [employer] Other MR lumbar spine wo con lumbar facet hypertrophy. The SI joints are intact. No paraspinal soft tissue abnormalities are [employer] Other MR lumbar spine wo con present. [employer] Other MR lumbar spine wo con XR/XR pre/post mri xray [employer] [facility] Other MR lumbar spine wo con IMPRESSION: [employer] Other MR lumbar spine wo con SCOLIOSIS AND DEGENERATIVE CHANGES, SIMILAR TO THE PRIOR. [employer] Other MR lumbar spine wo con MRI LUMBAR SPINE WITHOUT CONTRAST [employer] Other MR lumbar spine wo con Multiecho imaging in the axial and sagittal plane was performed without contrast. [employer] Other MR lumbar spine wo con There is levoscoliotic curvature. There is minimal retrolisthesis of L2 on L3, L3 on L4 and L4 and [employer] Other MR lumbar spine wo con L5. There are no acute compression fractures or marrow edema. There are degenerative endplate [employer] Other MR lumbar spine wo con signal changes, predominantly at L2-3 anteriorly. The conus medullaris terminates at T12-L1. The [employer] Other MR lumbar spine wo con lower imaged cord shows no significant findings. 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 No paraspinal soft tissue abnormalities are noted. [facility] Other MR lumbar spine wo con At T12-L1, there is no disc disease or stenosis. [facility] Other MR lumbar spine wo con At L1-2, there is slight disco-osteophytic bulging with mild thecal sac effacement. There is [employer] [facility] Other MR lumbar spine wo con asymmetric facet disease on the left. There is no significant foraminal stenosis. [employer] Other MR lumbar spine wo con At L2-3, there is prominent narrowing of the disc space. Disco-osteophytic bulging is noted. There [employer] Other MR lumbar spine wo con is increased signal at the annulus that may be a tear. There is bilateral facet hypertrophy with [employer] Other MR lumbar spine wo con joint effusion on the left. There is slight thickening of ligamentum flavum. There is continued [employer] Other MR lumbar spine wo con moderate thecal sac effacement. There is mild inferior foraminal encroachment. [employer] Other MR lumbar spine wo con At L3-4, there is narrowing of the disc space. Disco-osteophytic bulging is present. There is [facility] [facility] Other MR lumbar spine wo con bilateral facet disease and mild thickening of ligamentum flavum. There is mild to moderate thecal [employer] [facility] Other MR lumbar spine wo con sac effacement. There is mild to moderate right and moderate left foraminal impingement. [facility] Other MR lumbar spine wo con At L4-5, there is slight loss of disc height. Annular disc bulging is noted, slightly asymmetric [employer] Other MR lumbar spine wo con from the right parasagittal region extending laterally. There is increased signal at the annulus [employer] Other MR lumbar spine wo con that could be tear. There is bilateral facet hypertrophy and thickening of ligamentum flavum, [facility] Other MR lumbar spine wo con asymmetric on the left. Moderate central stenosis is again seen. There is moderate narrowing of [employer] Other MR lumbar spine wo con the neural foramen bilaterally. [facility] Other MR lumbar spine wo con At the lumbosacral junction, mild annular disc bulging is visualized. There is increased signal at [employer] Other MR lumbar spine wo con the annulus that could be tear. There is bilateral facet disease, greater on the left. There is [employer] [facility] Other MR lumbar spine wo con subtle thecal sac effacement. There is moderate neural foraminal narrowing, greater on the left. [facility] Other MR lumbar spine wo con LEVOSCOLIOSIS. [facility] Other MR lumbar spine wo con MULTILEVEL DISCOVERTEBRAL DEGENERATIVE CHANGES WITH ASSOCIATED CENTRAL AND FORAMINAL STENOSIS, [facility] Other MR lumbar spine wo con DESCRIBED. SIMILAR FINDINGS WERE PRESENT AT THE TIME OF THE COMPARISON. [facility] Other MR lumbar spine wo con Impression dictated by: Poppy Ashley M.D.08/28/2022 8:35 PM [facility] Other MR lumbar spine wo con Dictation Location: [place] [address] [facility] Other MR lumbar spine wo con Transcribed By: RODERICK 08/28/222034 [facility] Other MR lumbar spine wo con Dictated By: Poppy Ashley MD 08/28/222016 [facility] Other MR lumbar spine wo con Signed By: [facility] Other MR lumbar spine wo con 08/28/222034 [facility] Other XR ABD FLAT_UPon 07-04-2022 XR ABD FLAT_UP EXAMINATION: XR ABD FLAT_UP HISTORY: Slow transit constipation COMPARISON: No relevant comparison available. FINDINGS: BOWEL GAS PATTERN: Non-obstructed. FREE AIR: None. CALCIFICATIONS: None significant. 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 IMPRESSION: Nonobstructive bowel gas pattern with normal amount of stool Electronically authenticated by: YANNICK REA Date: 2022-07-04 07:30 Normal [facility] CULTURE URINEon 07-03-2022 CULTURE URINE Culture Observations : NO GROWTH. Normal [facility] Comment on above: Performed By: #### U RCX #### [facility] [address] [address] [address] Rene De Jesus UA RANDOMon 07-03-2022 Bilirubin Ql (U) Negative Normal NEGATIVE [facility] Comment on above: Performed By: #### U A #### [facility] [address] [place] [address] Dr. Rene De Jesus Clarity (U) CLEAR Normal CLEAR [facility] Comment on above: Performed By: #### U A #### [facility] [address] [place] [address] Dr. Rene De Jesus Color (U) LT. YELLOW Normal YELLOW [facility] Comment on above: Performed By: #### U A #### [facility] [address] [place] [address] Dr. Rene De Jesus Glucose Ql (U) Negative Normal NEGATIVE [facility] Comment on above: Performed By: #### U A #### [facility] [address] [place] [address] Dr. Rene De Jesus Hemoglobin Ql (U) Negative Normal NEGATIVE [facility] Comment on above: Performed By: #### U A #### [facility] [address] [place] [address] Dr. Rene De Jesus Ketones Ql (U) Negative Normal NEGATIVE [facility] Comment on above: Performed By: #### U A #### [facility] [address] [place] [address] Dr. Rene De Jesus LEUKOCYTES Negative Normal NEGATIVE [facility] Comment on above: Performed By: #### U A #### [facility] [address] [place] [address] Dr. Rene De Jesus Nitrite Ql (U) Negative Normal NEGATIVE [facility] Comment on above: Performed By: #### U A #### [facility] [address] [place] [address] Dr. Rene De Jesus pH (U) 8.0 [pH] Normal 5-9 [facility] Comment on above: Performed By: #### U A #### [facility] [address] [place] [address] Dr. Rene De Jesus SPEC GRAVITY 1.010 Normal 1.005-<=1.02 5 [facility] Comment on above: Performed By: #### U A #### [facility] [address] [place] [address] Dr. Rene De Jesus UA PROTEIN Negative Normal NEGATIVE/ TRACE [facility] Comment on above: Performed By: #### U A #### [facility] [address] [place] [address] Dr. Rene De Jesus Urobilinogen Qn (U) 0.2 {Raman'U}/dL Normal 0.2 - 1. 0 [facility] Comment on above: Performed By: #### U A #### [facility] [address] [place] [address] Dr. Rene De Jesus CBC AUTO DIFFon 03-20-2022 BASO # 0.0 103/ul Normal 0.0-0.1 [facility] Comment on above: Performed By: #### C BC #### [facility] [address] [place] [address] Dr. Rene De Jesus Basophils/100 WBC (Bld) 0.8 % Normal 0.2-2.0 [facility] Comment on above: Performed By: #### C BC #### [facility] [address] [place], [place] [address] Dr. Rene De Jesus EO # 0.1 103/ul Normal 0.0-0.7 [facility] Comment on above: Performed By: #### C BC #### [facility] [address] [place] [address] Dr. Rene De Jesus Eosinophils/100 WBC (Bld) 1.3 % Normal 0.9-7.0 [facility] Comment on above: Performed By: #### C BC #### [facility] [address] [place] [address] Dr. Rene De Jesus Erythrocyte distribution width (RBC) [Ratio] 13.1 % Normal 11.0-15.0 [facility] Comment on above: Performed By: #### C BC #### [facility] [address] [place] [address] Dr. Rene De Jesus Hematocrit (Bld) [Volume fraction] 40.9 % Normal 36.0-48.0 [facility] Comment on above: Performed By: #### C BC #### [facility] [address] [place] [address] Dr. Rene De Jesus Hemoglobin (Bld) [Mass/Vol] 13.2 g/dL Normal 12.0-16.0 [facility] Comment on above: Performed By: #### C BC #### [facility] [address] [place] [address] Dr. Rene De Jesus IG # 0.01 10e3/ul Normal 0.00-0.03 [facility] Comment on above: Performed By: #### C BC #### [facility] [address] [place] [address] Dr. Rene De Jesus IG % 0.2 % Normal 0.0-0.5 [facility] Comment on above: Performed By: #### C BC #### [facility] [address] [place] [address] Dr. Rene De Jesus LYMPH # 2.4 103/ul Normal 1.2-3.8 [facility] Comment on above: Performed By: #### C BC #### [facility] [address] [place] [address] Dr. Rene De Jesus Lymphocytes/100 WBC (Bld) 44.5 % Normal 20.5-60.0 [facility] Comment on above: Performed By: #### C BC #### [facility] [address] [place] [address] Dr. Rene De Jesus MANUAL DIFF REQ NO Normal [facility] Comment on above: Performed By: #### C BC #### [facility] [address] [place] [address] Dr. Rene De Jesus MCH (RBC) [Entitic mass] 29.2 pg Normal 26.7-34.0 [facility] Comment on above: Performed By: #### C BC #### [facility] [address] [place] [address] Dr. Rene De Jesus MCHC (RBC) [Mass/Vol] 32.3 g/dL Normal 29.9-35.2 [facility] Comment on above: Performed By: #### C BC #### [facility] [address] [address] [address] Rene De Jesus MCV (RBC) [Entitic vol] 90.5 fL Normal 81.0-99.0 [facility] Comment on above: Performed By: #### C BC #### [facility] [address] [address] [address] Rene De Jesus MONO # 0.6 103/ul Normal 0.3-0.8 [facility] Comment on above: Performed By: #### C BC #### [facility] [address] [place] [address] Dr. Rene De Jesus Monocytes/100 WBC (Bld) 12.1 % Critically high 1.7-12.0 [facility] Comment on above: Performed By: #### C BC #### [facility] [address] [place] [address] Dr. Rene De Jesus NEUT # 2.2 103/ul Normal 1.4-6.5 [facility] Comment on above: Performed By: #### C BC #### [facility] [address] [place] [address] Dr. Rene De Jesus Neutrophils/100 WBC (Bld) 41.1 % Critically low 43.0-75.0 [facility] Comment on above: Performed By: #### C BC #### [facility] [address] [place] [address] Dr. Rene De Jesus Platelet mean volume (Bld) [Entitic vol] 10.5 fL Normal 9.5-13.5 [facility] Comment on above: Performed By: #### C BC #### [facility] [address] [place] [address] Dr. Rene De Jesus PLT 263 103/ul Normal 150-450 [facility] Comment on above: Performed By: #### C BC #### [facility] [address] [place] [address] Dr. Rene De Jesus RBC 4.52 106/ul Normal 4.20-5.40 [facility] Comment on above: Performed By: #### C BC #### [facility] [address] [place] [address] Dr. Rene De Jeuss WBC 5.3 103/ul Normal 4.0-11.0 [facility] Comment on above: Performed By: #### C BC #### [facility] [address] [place] [address] Dr. Rene De Jesus PROF 14(COMP METB)on 022 Albumin [Mass/Vol] 3.9 g/dL Normal 3.4-5.0 [facility] Comment on above: Performed By: #### T SH, CMP #### [facility] [address] [place] [address] Dr. Rene De Jesus Albumin/Globulin [Mass ratio] 1.2 {ratio} Normal [facility] Comment on above: Performed By: #### T SH, CMP #### [facility] [address] [place] [address] Dr. Rene De Jesus ALP [Catalytic activity/Vol] 71 U/L Normal 46-116 [facility] Comment on above: Performed By: #### T SH, CMP #### [facility] [address] [place] [address] Dr. Rene De Jesus ALT [Catalytic activity/Vol] 21 U/L Normal 14-59 [facility] Comment on above: Performed By: #### T SH, CMP #### [facility] [address] [place] [address] Dr. Rene De Jesus Anion gap [Moles/Vol] 11.3 mmol/L Normal [facility] Comment on above: Performed By: #### T SH, CMP #### [facility] [address] [place] [address] Dr. Rene De Jesus AST [Catalytic activity/Vol] 15 U/L Normal 15-37 [facility] Comment on above: Performed By: #### T SH, CMP #### [facility] [address] [place] [address] Dr. Rene De Jesus Bilirubin [Mass/Vol] 0.3 mg/dL Normal 0.2-1.0 [facility] Comment on above: Performed By: #### T SH, CMP #### [facility] [address] [address] [address] Rene De Jesus Calcium [Mass/Vol] 8.9 mg/dL Normal 8.5-10.1 [facility] Comment on above: Performed By: #### T SH, CMP #### [facility] [address] [address] [address] Rene De Jesus Chloride [Moles/Vol] 102 mmol/L Normal 98-107 [facility] Comment on above: Performed By: #### T SH, CMP #### [facility] [address] [place] [address] Dr. Rene De Jesus CO2 [Moles/Vol] 30.7 mmol/L Normal 21.0-32.0 [facility] Comment on above: Performed By: #### T SH, CMP #### [facility] [address] [place] [address] Dr. Rene De Jesus Creatinine [Mass/Vol] 0.69 mg/dL Normal 0.55-1.02 [facility] Comment on above: Performed By: #### T SH, CMP #### [facility] [address] [place] [address] Dr. Rene De Jesus EGFR-AF ANGUILLAN >60 Normal >=60 [facility] Comment on above: Performed By: #### T SH, CMP #### [facility] [address] [place] [address] Dr. Rene De Jesus EGFR-NON AF ANGUILLAN >60 Normal >=60 [facility] Comment on above: Performed By: #### T SH, CMP #### [facility] [address] [place] [address] Dr. Rene De Jesus Globulin (S) [Mass/Vol] 3.3 g/dL Normal [facility] Comment on above: Performed By: #### T SH, CMP #### [facility] [address] [place] [address] Dr. Rene De Jesus Glucose [Mass/Vol] 96 mg/dL Normal 74-106 [facility] Comment on above: Performed By: #### T SH, CMP #### [facility] [address] [address] [address] Rene De Jesus Potassium [Moles/Vol] 4.0 mmol/L Normal 3.5-5.1 [facility] Comment on above: Performed By: #### T SH, CMP #### [facility] [address] [place] [address] Dr. Rene De Jesus Protein [Mass/Vol] 7.2 g/dL Normal 6.4-8.2 [facility] Comment on above: Performed By: #### T SH, CMP #### [facility] [address] [address] [address] Rene De Jesus Sodium [Moles/Vol] 140 mmol/L Normal 136-145 [facility] Comment on above: Performed By: #### T ZEN, CMP #### [facility] [address] [place] [address] Dr. Rene De Jesus Urea nitrogen [Mass/Vol] 18.0 mg/dL Normal 7.0-18.0 [facility] Comment on above: Performed By: #### T SH, CMP #### [facility] [address] [place] [address] Dr. Rene De Jesus Urea nitrogen/Creatinine [Mass ratio] 26.1 mg/mg Normal [facility] Comment on above: Performed By: #### T SH, CMP #### [facility] [address] [place] [address] Dr. Rene De Jesus TSHon 03-20-2022 TSH 2.033 uIU/mL Normal 0.358-3.740 [facility] Comment on above: Performed By: #### T ZEN, CMP #### [facility] [address] [place] [address] Dr. Rene De Jesus XR foot RT min 3V*on 022 XR foot RT min 3V* [facility] Other XR foot RT min 3V* [facility] Other XR foot RT min 3V* [address] [place] [address] [facility] Other XR foot RT min 3V* Harsh [place] [address] [facility] Other XR foot RT min 3V* XRay Report [facility] Other XR foot RT min 3V* Signed [facility] Other XR foot RT min 3V* Patient: [place]na Sultana MR#: [id number] [facility] Other XR foot RT min 3V* 2916 [facility] Other XR foot RT min 3V* : 1965 Acct:[id number] [facility] Other XR foot RT min 3V* Age/Sex: 56 / F ADM Date: 01/28/22 [facility] Other XR foot RT min 3V* Loc: XDUCLY Room: Type: REG CLI [facility] Other XR foot RT min 3V* Attending Dr: Shara Cutler [facility] Other XR foot RT min 3V* Copies to: SHARA CUTLER [employer] [facility] Other XR foot RT min 3V* Ordering Provider: SHARA CUTLER [facility] Other XR foot RT min 3V* Date of Service: 01/28/22 [facility] Other XR foot RT min 3V* XR/XR foot RT min 3V*: Injury of right foot, initial encounter [facility] Other XR foot RT min 3V* 3 viewsRIGHT foot plain film [facility] Other XR foot RT min 3V* COMPARISON:None [facility] Other XR foot RT min 3V* HISTORY:RIGHT foot injury. [facility] Other XR foot RT min 3V* No acute fracture, dislocation or focal soft tissue abnormality seen. Chronic deformity of the 5th [facility] Other XR foot RT min 3V* metatarsal identified. [facility] Other XR foot RT min 3V* XR/XR foot RT min 3V* [facility] Other XR foot RT min 3V* IMPRESSION:No acute findings [facility] Other XR foot RT min 3V* Impression dictated by: Lukas Nicole M.D.01/28/2022 3:27 PM [facility] Other XR foot RT min 3V* Dictation Location: [place] [address] [facility] Other XR foot RT min 3V* Transcribed By: PWS 01/28/22 [facility] Other XR foot RT min 3V* Dictated By: Lukas Nicole DO 01/28/22 [facility] Other XR foot RT min 3V* Signed By: [facility] Other XR foot RT min 3V* 01/28/[address] [place] [address] ABD/PELVIS WO CONon 08-01 CT [...] MARGO ELLIOTT Date: 2021-08-01 02:33 Normal [facility] ER URINE PROFILEon 2 Bilirubin Ql (U) Negative Normal NEGATIVE [facility] Comment on above: Performed By: #### E RUR #### [facility] [address] [place] [address] Dr. Rene De Jesus Clarity (U) CLEAR Normal CLEAR [facility] Comment on above: Performed By: #### E RUR #### [facility] [address] [place] [address] Dr. Rene De Jesus Color (U) YELLOW Normal YELLOW [facility] Comment on above: Performed By: #### E RUR #### [facility] [address] [place] [address] Dr. Rene SOLOMON A micrscopic examination will be performed if indicated. Normal [facility] Comment on above: Performed By: #### E RUR #### [facility] [address] [place] [address] Dr. Rene De Jesus Glucose Ql (U) Negative Normal NEGATIVE [facility] Comment on above: Performed By: #### E RUR #### [facility] [address] [place] [address] Dr. Rene De Jesus Hemoglobin Ql (U) Negative Normal NEGATIVE [facility] Comment on above: Performed By: #### E RUR #### [facility] [address] [place] [address] Dr. Rene De Jesus Ketones Ql (U) Negative Normal NEGATIVE [facility] Comment on above: Performed By: #### E RUR #### [facility] [address] [place] [address] Dr. Rene De Jesus LEUKOCYTES Negative Normal NEGATIVE [facility] Comment on above: Performed By: #### E RUR #### [facility] [address] [place] [address] Dr. Rene De Jesus Nitrite Ql (U) Negative Normal NEGATIVE [facility] Comment on above: Performed By: #### E RUR #### [facility] [address] [place] [address] Dr. Rene De Jesus pH (U) 7.5 [pH] Normal 5-9 [facility] Comment on above: Performed By: #### E RUR #### [facility] [address] [place] [address] Dr. Rene De Jesus SPEC GRAVITY 1.015 Normal 1.005-<=1.02 5 [facility] Comment on above: Performed By: #### E RUR #### [facility] [address] [place] [address] Dr. Rene De Jesus UA PROTEIN Negative Normal NEGATIVE/ TRACE [facility] Comment on above: Performed By: #### E RUR #### [facility] [address] [place] [address] Dr. Rene De Jesus UR MICRO IND NOT INDICATED Normal [facility] Comment on above: Performed By: #### E RUR #### [facility] [address] [place] [address] Dr. Rene De Jesus Urobilinogen Qn (U) 0.2 {Raman'U}/dL Normal 0.2 - 1. 0 [facility] Comment on above: Performed By: #### E RUR #### [facility] [address] [place] [address] Dr. Rene Briceno 09-06-2020 BILIRUBIN UA (POCT) Negative Negative [facility] CLARITY UA (POCT) Clear [facility] COLOR UA (POCT) Yellow [facility] GLUCOSE UA (POCT) Negative Negative mg/dL [facility] HEMOGLOBIN/BLOOD UA (POCT) Negative Negative [facility] KETONE UA (POCT) Negative Negative mg/dL [facility] LEUKOCYTES UA (POCT) Negative Negative [facility] NITRITE UA (POCT) Negative Negative [facility] PH UA (POCT) 8.5 Abnormal 4.5 - 8.0 [facility] Protein Ql (U) Negative Negative mg/dL [facility] SPECIFIC GRAVITY UA (POCT) 1.020 1.005 - 1.030 [facility] UROBILINOGEN UA (POCT) 0.2 E.U./dL Normal E.U./dL [facility] ANTI-SSAon 01-19-2019 ANTI-SSA <0.2 Normal [facility] Comment on above: Result Comment: REF VALUES < 1.0 = NEGATIVE >=1.0 = POSITIVE Performed By: #### A -SSA #### [facility] [address] [place] [address] ANTI-SSBon 01-19-2019 ANTI-SSB <0.2 Normal [facility] Comment on above: Result Comment: REF VALUES < 1.0 = NEGATIVE >=1.0 = POSITIVE Performed By: #### A -SSB #### [facility] [address] [place] [address] C-REACTIVE PROTEINon 019 CRP [Mass/Vol] 0.13 mg/dL Normal [facility] Comment on above: Result Comment: REF VALUE < 1.00 Performed By: #### C RP #### [facility] [address] [place] [address] SEDIMENTATION RATE, ERYTHROC YTEon 01-19-2019 SEDIMENTATION RATE, ERYTHROCYTE 3 mm/h Normal 0 - 30 [facility] Comment on above: Performed By: #### E SRWS #### [facility] [address] [place] [address] Vital Signs Date Time Vital Sign Value Performing Clinician Facility 01-03-2025 10:45-0400 Body height 177.16 cm Yannick Velázquez DO Work Phone: [facility] 01-03-2025 10:45-0400 Body mass index (BMI) [Ratio] 21.1 kg/m2 Yannick Velázquez DO Work Phone: [facility] 01-03-2025 10:45-0400 Body temperature 98.2 [degF] Yannick Velázquez DO Work Phone: [facility] 01-03-2025 10:45-0400 Body weight 66.22 kg Yannick Velázquez DO Work Phone: [facility] 01-03-2025 10:45-0400 Diastolic blood pressure 80 mm[Hg] Yannick Velázquez DO Work Phone: [facility] 01-03-2025 10:45-0400 Heart rate 72 /min Yannick Velázquez DO Work Phone: [facility] 01-03-2025 10:45-0400 SaO2% (BldA) [Mass fraction] 99 % Yannick Velázquez DO Work Phone: [facility] 01-03-2025 10:45-0400 Systolic blood pressure 118 mm[Hg] Yannick Velázquez DO Work Phone: [facility] 12-21-2024 08:35-0400 Body height 177.8 cm Katia Whitt MD Work Phone: [facility] 12-21-2024 08:35-0400 Body mass index (BMI) [Ratio] 21.06 kg/m2 Katia Whitt MD Work Phone: [facility] 12-21-2024 08:35-0400 Body weight 66.59 kg Katia Whitt MD Work Phone: [facility] 12-21-2024 08:35-0400 Diastolic blood pressure 78 mm[Hg] Katia Whitt MD Work Phone: [facility] 12-21-2024 08:35-0400 Systolic blood pressure 124 mm[Hg] Katia Whitt MD Work Phone: [facility] 11-09-2024 11:51-0400 Body height 177.8 cm Katia Whitt MD Work Phone: [facility] 11-09-2024 11:51-0400 Body mass index (BMI) [Ratio] 21.64 kg/m2 Katia Whitt MD Work Phone: [facility] 11-09-2024 11:51-0400 Body weight 68.4 kg Katia Whitt MD Work Phone: [facility] 11-09-2024 11:51-0400 Diastolic blood pressure 88 mm[Hg] Katia Whitt MD Work Phone: [facility] 11-09-2024 11:51-0400 Systolic blood pressure 132 mm[Hg] Katia Whitt MD Work Phone: [facility] 10-26-2024 15:27-0400 Body height 177.8 cm Katia Whitt MD Work Phone: [facility] 10-26-2024 15:27-0400 Body mass index (BMI) [Ratio] 21.03 kg/m2 Katia Whitt MD Work Phone: [facility] 10-26-2024 15:27-0400 Body weight 66.5 kg Katia Whitt MD Work Phone: [facility] 10-20-2024 12:36-0400 Body height 177.16 cm [facility] 10-20-2024 12:36-0400 Body mass index (BMI) [Ratio] 21.2 kg/m2 [facility] 10-20-2024 12:36-0400 Body temperature 98.3 [degF] [facility] 10-20-2024 12:36-0400 Body weight 66.67 kg [facility] 10-20-2024 12:36-0400 Diastolic blood pressure 86 mm[Hg] [facility] 10-20-2024 12:36-0400 Heart rate 104 /min [facility] 10-20-2024 12:36-0400 SaO2% (BldA) [Mass fraction] 96 % [facility] 10-20-2024 12:36-0400 Systolic blood pressure 130 mm[Hg] [facility] 09-29-2024 08:57-0400 Body height 177.16 cm [facility] 09-29-2024 08:57-0400 Body mass index (BMI) [Ratio] 21.9 kg/m2 [facility] 09-29-2024 08:57-0400 Body temperature 98 [degF] [facility] 09-29-2024 08:57-0400 Body weight 68.94 kg [facility] 09-29-2024 08:57-0400 Diastolic blood pressure 80 mm[Hg] [facility] 09-29-2024 08:57-0400 SaO2% (BldA) [Mass fraction] 99 % [facility] 09-29-2024 08:57-0400 Systolic blood pressure 136 mm[Hg] [facility] 08-31-2024 15:36-0500 Body height 179.1 cm Katia Whitt MD Work Phone: [facility] 08-31-2024 15:36-0500 Body mass index (BMI) [Ratio] 22.66 kg/m2 Katia Whitt MD Work Phone: [facility] 08-31-2024 15:36-0500 Body weight 72.67 kg Katia Whitt MD Work Phone: [facility] 08-31-2024 15:36-0500 Diastolic blood pressure 84 mm[Hg] Katia Whitt MD Work Phone: [facility] 08-31-2024 15:36-0500 Systolic blood pressure 136 mm[Hg] Katia Whitt MD Work Phone: [facility] 08-04-2024 15:17-0500 Body height 177.8 cm Reza Gorman MD Work Phone: [facility] 08-04-2024 15:17-0500 Body mass index (BMI) [Ratio] 22.1 kg/m2 Reza Gorman MD Work Phone: [facility] 08-04-2024 15:17-0500 Body weight 69.85 kg Reza Gorman MD Work Phone: [facility] 08-04-2024 15:17-0500 Diastolic blood pressure 85 mm[Hg] Reza Gorman MD Work Phone: [facility] 08-04-2024 15:17-0500 Heart rate 80 /min Reza Gorman MD Work Phone: [facility] 08-04-2024 15:17-0500 Systolic blood pressure 141 mm[Hg] Reza Gorman MD Work Phone: [facility] 06-01-2024 08:53-0500 Body height 179.1 cm Katia Whitt MD Work Phone: [facility] 06-01-2024 08:53-0500 Body mass index (BMI) [Ratio] 21.87 kg/m2 Katia Whitt MD Work Phone: [facility] 06-01-2024 08:53-0500 Body weight 70.13 kg Katia Whitt MD Work Phone: [facility] 05-31-2024 13:29-0500 Body height 177.8 cm Ivy Garcia INDUSTRIAL PSYCHOLOGIST Work Phone: [facility] 05-31-2024 13:29-0500 Body mass index (BMI) [Ratio] 22.1 kg/m2 Ivy Irmamor INDUSTRIAL PSYCHOLOGIST Work Phone: [facility] 05-31-2024 13:29-0500 Body weight 69.85 kg Ivy Gillmor INDUSTRIAL PSYCHOLOGIST Work Phone: [facility] 05-31-2024 13:29-0500 Diastolic blood pressure 96 mm[Hg] Ivy Irmamor INDUSTRIAL PSYCHOLOGIST Work Phone: [facility] 05-31-2024 13:29-0500 Heart rate 106 /min Ivy Irmamor INDUSTRIAL PSYCHOLOGIST Work Phone: [facility] 05-31-2024 13:29-0500 Systolic blood pressure 154 mm[Hg] Ivy Irmamor INDUSTRIAL PSYCHOLOGIST Work Phone: [facility] 05-18-2024 15:17-0500 [facility] height [facility] 05-18-2024 15:17-0500 Body mass index (BMI) [Ratio] 21.36 kg/m2 [facility] 05-18-2024 15:17-0500 Body weight 68.49 kg [facility] [employer] [facility] 05-18-2024 15:17-0500 Diastolic blood pressure 84 mm[Hg] [facility] 05-18-2024 15:17-0500 Systolic blood pressure 124 mm[Hg] [facility] 04-20-2024 13:18-0400 Blood Pressure Location Florentin NEVILLE [facility] 04-20-2024 13:18-0400 Diastolic blood pressure 106 mm[Hg] Florentin NEVILLE [facility] 04-20-2024 13:18-0400 Heart rate 72 /min Florentin WONGL [facility] 04-20-2024 13:18-0400 Respiratory rate 16 /min Florentin NEVILLE [facility] 04-20-2024 13:18-0400 Systolic blood pressure 144 mm[Hg] Florentin NEV[place] 04-15-2024 11:02-0400 Body height 177.8 cm Suzanne Marlen DO Work Phone: [facility] 04-15-2024 11:02-0400 Body mass index (BMI) [Ratio] 22.1 kg/m2 Suzanne Marlen DO Work Phone: [facility] 04-15-2024 11:02-0400 Body weight 69.85 kg Suzanne Marlen DO Work Phone: [facility] 04-15-2024 11:02-0400 Diastolic blood pressure 86 mm[Hg] Suzanne Marlen DO Work Phone: [facility] 04-15-2024 11:02-0400 Heart rate 83 /min Suzanne Marlen DO Work Phone: [facility] 04-15-2024 11:02-0400 SaO2% (BldA) [Mass fraction] 98 % Suzanne Marlen DO Work Phone: [facility] 04-15-2024 11:02-0400 Systolic blood pressure 134 mm[Hg] Suzanne Marlen DO Work Phone: [facility] 03-24-2024 15:02-0400 Body height 177.16 cm [facility] 03-24-2024 15:02-0400 Body mass index (BMI) [Ratio] 22.5 kg/m2 [facility] 03-24-2024 15:02-0400 Body temperature 97.3 [degF] [facility] 03-24-2024 15:02-0400 Body weight 70.76 kg [facility] [facility] 03-24-2024 15:02-0400 Diastolic blood pressure 80 mm[Hg] [facility] 03-24-2024 15:02-0400 Heart rate 77 /min [facility] 03-24-2024 15:02-0400 SaO2% (BldA) [Mass fraction] 98 % [facility] 03-24-2024 15:02-0400 Systolic blood pressure 124 mm[Hg] [facility] 03-23-2024 14:54-0400 Body height 180.3 cm Janna Gilman MD Work Phone: [facility] 03-23-2024 14:54-0400 Body mass index (BMI) [Ratio] 21.59 kg/m2 Janna Gilman MD Work Phone: [facility] 03-23-2024 14:54-0400 Body weight 70.2 kg Janna Gilman MD Work Phone: [facility] 03-23-2024 14:54-0400 Diastolic blood pressure 92 mm[Hg] Janna Gilman MD Work Phone: [facility] 03-23-2024 14:54-0400 Heart rate 95 /min Janna Gilman MD Work Phone: [facility] 03-23-2024 14:54-0400 SaO2% (BldA) [Mass fraction] 100 % Janna Gilman MD Work Phone: [facility] 03-23-2024 14:54-0400 Systolic blood pressure 156 mm[Hg] Janna Gilman MD Work Phone: [facility] 12-24-2023 10:31-0400 Body height 177.16 cm [facility] 12-24-2023 10:31-0400 Body mass index (BMI) [Ratio] 21.8 kg/m2 [facility] 12-24-2023 10:31-0400 Body temperature 98.1 [degF] [facility] 12-24-2023 10:31-0400 Body weight 68.49 kg [facility] 12-24-2023 10:31-0400 Diastolic blood pressure 82 mm[Hg] [facility] 12-24-2023 10:31-0400 Heart rate 87 /min [facility] 12-24-2023 10:31-0400 SaO2% (BldA) [Mass fraction] 97 % [facility] 12-24-2023 10:31-0400 Systolic blood pressure 136 mm[Hg] [facility] 12-12-2023 10:35-0400 Body height 180.3 cm Abiodun Castano DO Work Phone: [facility] 12-12-2023 10:35-0400 Body mass index (BMI) [Ratio] 22.04 kg/m2 Abiodun Castano DO Work Phone: [facility] 12-12-2023 10:35-0400 Body weight 71.67 kg Abiodun Castano DO Work Phone: [facility] 12-12-2023 10:35-0400 Respiratory rate 12 /min Abiodun Castano DO Work Phone: [facility] 10-21-2023 08:07-0400 Body height 180.3 cm Abiodun Castano DO Work Phone: [facility] 10-21-2023 08:07-0400 Body mass index (BMI) [Ratio] 22.04 kg/m2 Abiodun Castano DO Work Phone: [facility] 10-21-2023 08:07-0400 Body weight 71.67 kg Abiodun Castano DO Work Phone: [facility] 10-21-2023 08:07-0400 Respiratory rate 12 /min Abiodun Castano DO Work Phone: [facility] 09-30-2023 10:22-0400 Body height 179.1 cm [facility] 09-30-2023 10:22-0400 Body mass index (BMI) [Ratio] 22.48 kg/m2 P[facility] 09-30-2023 10:22-0400 Body weight 72.12 kg [facility] 09-30-2023 10:22-0400 Diastolic blood pressure 64 mm[Hg] [facility] 09-30-2023 10:22-0400 Systolic blood pressure 120 mm[Hg] [facility] 05-22-2023 11:30-0500 Body height 177.16 cm Yannick Velázquez Other [employer] Other 05-22-2023 11:30-0500 Body mass index (BMI) [Ratio] 22.4 kg/m2 Yannick Velázquez Other [employer] Other 05-22-2023 11:30-0500 Body temperature 98.5 [degF] Yannick Velázquez Other [employer] Other 05-22-2023 11:30-0500 Body weight 70.31 kg Yannick Velázquez Other [employer] Other 05-22-2023 11:30-0500 Diastolic blood pressure 88 mm[Hg] Yannick Velázquez Other [employer] Other 05-22-2023 11:30-0500 Respiratory rate 18 /min Yannick Gisel Other [employer] Other 05-22-2023 11:30-0500 SaO2% (BldA) [Mass fraction] 98 % Yannick Johnnakaren Other [employer] Other 05-22-2023 11:30-0500 Systolic blood pressure 138 mm[Hg] Yannick Velázquez Other [employer] Other 03-19-2023 15:20-0400 Body height 177.16 cm Victorina Blades Other [employer] Other 03-19-2023 15:20-0400 Body mass index (BMI) [Ratio] 23.26 kg/m2 Victorina Blades Other [employer] Other 03-19-2023 15:20-0400 Body weight 73.03 kg Victorina Blades Other [employer] Other 03-19-2023 15:20-0400 Diastolic blood pressure 84 mm[Hg] Victorina Blades Other [employer] Other 03-19-2023 15:20-0400 Systolic blood pressure 130 mm[Hg] Victorina Blades Other [employer] Other 02-23-2023 13:27-0400 Body height 177.8 cm DO Yannick Velázquez Work Phone: [facility] 02-23-2023 13:27-0400 Body temperature 99 [degF] DO Yannick Velázquez Work Phone: [facility] 02-23-2023 13:27-0400 Body weight 72.05 kg DO Yannick Velázquez Work Phone: [facility] 02-23-2023 13:27-0400 Diastolic blood pressure 95 mm[Hg] DO Yannick Velázquez Work Phone: [facility] 02-23-2023 13:27-0400 Heart rate 101 /min DO Yannick Velázquez Work Phone: [facility] 02-23-2023 13:27-0400 Respiratory rate 18 /min DO Yannick Velázquez Work Phone: [facility] 02-23-2023 13:27-0400 SaO2% (BldA) [Mass fraction] 98 % DO Yannick Velázquez Work Phone: [facility] 02-23-2023 13:27-0400 Systolic blood pressure 152 mm[Hg] DO Yannick Velázquez Work Phone: [facility] 02-12-2023 10:00-0400 Body height 177.16 cm Victorina Blades Other [employer] Other 02-12-2023 10:00-0400 Body mass index (BMI) [Ratio] 23.41 kg/m2 Victorina Blades Other [employer] Other 02-12-2023 10:00-0400 Body weight 73.48 kg Victorina Blades Other [employer] Other 02-12-2023 10:00-0400 Diastolic blood pressure 82 mm[Hg] Victorina Blades Other [employer] Other 02-12-2023 10:00-0400 Systolic blood pressure 120 mm[Hg] Victorina Blades Other [employer] Other 01-21-2023 09:10-0400 Body height 177.16 cm Tonia Sandoval Other [employer] Other 01-21-2023 09:10-0400 Body mass index (BMI) [Ratio] 23.84 kg/m2 Tonia Sandoval Other [employer] Other 01-21-2023 09:10-0400 Body temperature 97.6 [degF] Tonia Sandoval Other [employer] Other 01-21-2023 09:10-0400 Body weight 74.84 kg Tonia Sandoval Other [employer] Other 01-21-2023 09:10-0400 Diastolic blood pressure 88 mm[Hg] Tonia Sandoval Other [employer] Other 01-21-2023 09:10-0400 Respiratory rate 18 /min Tonia Sandoval Other [employer] Other 01-21-2023 09:10-0400 SaO2% (BldA) [Mass fraction] 99 % Tonia Sandoval Other [employer] Other 01-21-2023 09:10-0400 Systolic blood pressure 125 mm[Hg] Tonia Sandoval Other [employer] Other 12-20-2022 08:10-0400 Body height 177.16 cm Yannick Velázquez Other [employer] Other 12-20-2022 08:10-0400 Body mass index (BMI) [Ratio] 23.55 kg/m2 Yannick Velázquez Other [employer] Other 12-20-2022 08:10-0400 Body temperature 98.6 [degF] Yannick Gisle Other [employer] Other 12-20-2022 08:10-0400 Body weight 73.94 kg Yannick Velázquez Other [employer] Other 12-20-2022 08:10-0400 Diastolic blood pressure 70 mm[Hg] Yannick Gisel Other [employer] Other 12-20-2022 08:10-0400 Respiratory rate 20 /min Yannick Johnnakaren Other [employer] Other 12-20-2022 08:10-0400 SaO2% (BldA) [Mass fraction] 97 % Yannick Johnnakaren Other [employer] Other 12-20-2022 08:10-0400 Systolic blood pressure 110 mm[Hg] Yannick Johnnakaren Other [employer] Other 07-19-2022 13:30-0500 Body height 177.16 cm Yannick Johnnakaren Other [employer] Other 07-19-2022 13:30-0500 Body mass index (BMI) [Ratio] 24.2 kg/m2 Yannick Johnnakaren Other [employer] Other 07-19-2022 13:30-0500 Body temperature 97.8 [degF] Yannick Velázquez Other [employer] Other 07-19-2022 13:30-0500 Body weight 75.98 kg Yannick Velázquez Other [employer] Other 07-19-2022 13:30-0500 Diastolic blood pressure 82 mm[Hg] Yannick Velázquez Other [employer] Other 07-19-2022 13:30-0500 Respiratory rate 18 /min Yannick Velázquez Other [employer] Other 07-19-2022 13:30-0500 SaO2% (BldA) [Mass fraction] 97 % Yannick Velázquez Other [employer] Other 07-19-2022 13:30-0500 Systolic blood pressure 116 mm[Hg] Yannick Velázquez Other [employer] Other 06-24-2022 15:40-0500 Body height 177.16 cm Yannick Gisel Other [employer] Other 01-28-2022 14:45-0400 Body height 177.16 cm Shara Cutler Other [employer] Other 01-28-2022 14:45-0400 Body mass index (BMI) [Ratio] 24.71 kg/m2 Shara Cutler Other [employer] Other 01-28-2022 14:45-0400 Body temperature 98.5 [degF] Shara Cutler Other [employer] Other 01-28-2022 14:45-0400 Body weight 77.57 kg Shara Cutler Other [employer] Other 01-28-2022 14:45-0400 Diastolic blood pressure 79 mm[Hg] Shara Cutler Other [employer] Other 01-28-2022 14:45-0400 Respiratory rate 18 /min Shara Cutler Other [employer] Other 01-28-2022 14:45-0400 SaO2% (BldA) [Mass fraction] 99 % Shara Sullivanault Other [employer] Other 01-28-2022 14:45-0400 Systolic blood pressure 111 mm[Hg] Shara Sullivanault Other [employer] Other 01-09-2022 15:20-0400 Body height 177.16 cm Yannick Velázquez Other [employer] Other 01-09-2022 15:20-0400 Body mass index (BMI) [Ratio] 25 kg/m2 Yannick Velázquez Other [employer] Other 01-09-2022 15:20-0400 Body temperature 98.1 [degF] Yannick Velázquez Other [employer] Other 01-09-2022 15:20-0400 Body weight 78.47 kg Yannick Velázquez Other [employer] Other 01-09-2022 15:20-0400 Diastolic blood pressure 76 mm[Hg] Yannick Velázquez Other [employer] Other 01-09-2022 15:20-0400 Respiratory rate 18 /min Yannick Velázquez Other [employer] Other 01-09-2022 15:20-0400 SaO2% (BldA) [Mass fraction] 97 % Yannick Velázquez Other [employer] Other 01-09-2022 15:20-0400 Systolic blood pressure 120 mm[Hg] Yannick Velázquez Other [employer] Other 09-10-2021 12:10-0500 Body height 177.16 cm Yannick Johnnakaren Other [employer] Other 09-10-2021 12:10-0500 Body mass index (BMI) [Ratio] 24.42 kg/m2 Yannick Johnnakaren Other [employer] Other 09-10-2021 12:10-0500 Body temperature 97.9 [degF] Yannick Johnnakaren Other [employer] Other 09-10-2021 12:10-0500 Body weight 76.66 kg Yannick Johnnakaren Other [employer] Other 09-10-2021 12:10-0500 Diastolic blood pressure 80 mm[Hg] Yannick Velázquez Other [employer] Other 09-10-2021 12:10-0500 Respiratory rate 16 /min Yannick Johnnakaren Other [employer] Other 09-10-2021 12:10-0500 SaO2% (BldA) [Mass fraction] 97 % Yannick Gisel Other [employer] Other 09-10-2021 12:10-0500 Systolic blood pressure 118 mm[Hg] Yannick Velázquez Other [employer] Other 06-11-2021 12:10-0500 Body height 177.16 cm Yannick Velázquez Other [employer] Other 06-11-2021 12:10-0500 Body mass index (BMI) [Ratio] 23.34 kg/m2 Yannick Velázquez Other [employer] Other 06-11-2021 12:10-0500 Body temperature 97.6 [degF] Yannick Johnnakaren Other [employer] Other 06-11-2021 12:10-0500 Body weight 73.26 kg Yannick Gisel Other [employer] Other 06-11-2021 12:10-0500 Diastolic blood pressure 88 mm[Hg] Yannick Velázquez Other [employer] Other 06-11-2021 12:10-0500 Respiratory rate 18 /min Yannick Velázquez Other [employer] Other 06-11-2021 12:10-0500 SaO2% (BldA) [Mass fraction] 99 % Yannick Velázquez Other [employer] Other 06-11-2021 12:10-0500 Systolic blood pressure 122 mm[Hg] Yannick Velázquez Other [employer] Other 09-06-2020 13:39-0500 Body weight 70.76 kg [facility] 09-06-2020 13:39-0500 Height 180.3 cm [facility] Encounters Encounter Date Encounter Type Care Provider Facility Start: 01-13-2025 End: 01-13-2025 Telephone encounter Eugenio Brown CMA [facility] Start: 01-03-2025 End: 01-03-2025 ambulatory Yannick Velázquez DO Work Phone: [facility] Work Phone: Start: 01-03-2025 End: 01-03-2025 Patient encounter procedure Yannick Velázquez DO -[facility] [place] Work Phone: Start: 12-21-2024 End: 12-21-2024 Office outpatient visit 15 minutes Katia Whitt MD Work Phone: [facility] Comment on above: Menopausal symptom ( Primary Dx) Start: 12-21-2024 End: 12-21-2024 ambulatory [facility] Start: 12-01-2024 End: 12-01-2024 Subsequent hospital visit by physician Dominique [id number] [facility] Comment on above: Encounter for screen ing for cardiovascular disorders Start: 12-01-2024 End: 12-01-2024 ambulatory [facility] Start: 11-30-2024 End: 11-30-2024 Telephone encounter Laurie zhang Obstetrics/Gynecology Start: 11-29-2024 End: 11-30-2024 Refill Katia Whitt MD [facility] Start: 11-09-2024 End: 11-09-2024 Office outpatient visit 15 minutes Katia Whitt MD Work Phone: [facility] Comment on above: Thickened endometriu m (Primary Dx); Menopausal symptom; Vaginal atrophy Start: 11-09-2024 End: 11-09-2024 [facility] Start: 10-26-2024 End: 10-26-2024 [facility] Start: 10-26-2024 End: 10-26-2024 Patient encounter procedure Katia Whitt MD Work Phone: [facility] Comment on above: Postmenopausal (Prim armida Dx); DUB (dysfunctional uterine bleeding) [N93.8]; Thickened endometrium Start: 10-26-2024 End: 10-26-2024 ambulatory [facility] Start: 10-20-2024 End: 10-20-2024 ambulatory [facility] Work Phone: Start: 10-20-2024 End: 10-20-2024 Patient encounter procedure [facility] [place] Work Phone: Start: 10-19-2024 End: 10-19-2024 ambulatory Janna Gilman MD Work Phone: Neurology Comment on above: Question Start: 10-01-2024 End: 10-04-2024 Telephone encounter Laurie Steward MA [facility] Start: 09-29-2024 End: 09-29-2024 ambulatory [facility] Work Phone: Start: 09-29-2024 End: 09-29-2024 Patient encounter procedure [facility] [place] Work Phone: Start: 08-31-2024 End: 08-31-2024 Office outpatient visit 15 minutes Katia Whitt MD Work Phone: [facility] Comment on above: Vaginal lesion (Prim armida Dx); Thickened endometrium Start: 08-31-2024 End: 08-31-[address] [facility] Start: 08-04-2024 End: 08-04-2024 Office outpatient visit 15 minutes Reza Gorman MD Work Phone: [facility] Comment on above: Nontoxic multinodula r goiter (CMS/HCC) (Primary Dx) Start: 08-04-2024 End: 08-04-2024 ambulatory REZA GORMAN Not Available Start: 08-04-2024 End: 08-04-2024 Bamboo flowsheet Reza Gorman MD Work Phone: [facility] Start: 08-04-2024 End: 08-04-2024 Bamboo flowsheet Reza Gorman MD Work Phone: [facility] Start: 07-01-2024 End: 07-01-2024 ambulatory RAVEN HERNÁNDEZ [facility] Start: 06-24-2024 End: 06-24-2024 ambulatory Yannick Velázquez Facility:[facility] Start: 06-23-2024 End: 06-23-2024 [address] YANNICK VELÁZQUEZ [facility] Start: 06-17-2024 End: 06-17-2024 ambulatory [facility] Start: 06-11-2024 End: 06-11-2024 ambulatory Janna Gilman MD Work Phone: Neurology Comment on above: MRI result Start: 06-11-2024 End: 06-11-2024 E-mail encounter from caregiver Janna Gilman MD Work Phone: Neurology Start: 06-10-2024 End: 06-10-2024 Subsequent hospital visit by physician Mri [facility] Cookie (1.5t) Work Phone: Radiology Comment on above: 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] Start: 06-01-2024 End: 06-01-2024 Office outpatient visit 15 minutes Katia Whitt MD Work Phone: [facility] Comment on above: Vaginal lesion (Prim armida Dx) Start: 06-01-2024 End: 06-01-2024 ambulatory [facility] Start: 05-31-2024 End: 05-31-2024 Bamboo flowsheet Ivy Gillmor INDUSTRIAL PSYCHOLOGIST [facility] Start: 05-31-2024 End: 05-31-2024 Bamboo flowsheet Ivy Gillmor INDUSTRIAL PSYCHOLOGIST Work Phone: [employer] | [employer] [address] Start: 05-31-2024 End: 05-31-2024 Office outpatient visit 25 minutes Ivy Kathyr INDUSTRIAL PSYCHOLOGIST Work Phone: [facility] [employer] [facility] Comment on above: Restless legs (Prima ry Dx); Benign fasciculation-cramp syndrome; Hypersomnia; PLMD (periodic limb movement disorder); Chronic low back pain, unspecified back pain laterality, unspecified whether sciatica present; Sleep disturbance Start: 05-31-2024 End: 05-31-2024 ambulatory IVY IRMAMOR Not Available Start: 05-31-2024 End: 05-31-20[facility] Start: 05-18-2024 End: 05-18-2024 ambulatory [facility] Start: 05-18-2024 End: 05-18-2024 ambulatory YANNICK Tran [facility] Start: 05-18-2024 Encounter for gynecological examination (general) (routine) without abnormal findings [facility] Start: 05-18-2024 End: 05-18-2024 Patient encounter procedure [facility] Tire Care Manager [facility] Start: 05-18-2024 End: 05-18-2024 Periodic preventive med est patient 40-64yrs [facility] Ob Tire Care Manager [facility] [place] Comment on [...] Start: 04-20-2024 End: 04-20-2024 ambulatory Yannick Velázquez Facility:[facility] Start: 04-20-2024 End: 04-20-2024 Patient encounter procedure Florentin NEVILLE [facility] [place] Start: 04-15-2024 End: 04-15-2024 Bamboo flowsheet Suzanne Gee DO Work Phone: [facility] Start: 04-15-2024 End: 04-15-2024 Bamboo flowsheet Suzanne Gee DO Work Phone: [facility] Start: 04-15-2024 End: 04-15-2024 Office outpatient visit 25 minutes Suzanne Gee DO Work Phone: [facility] Comment on above: AB (obstructive sle ep apnea) (Primary Dx); Hypersomnia; Sleep disturbance; Catathrenia; Sleep talking Start: 04-15-2024 End: 04-15-2024 ambulatory SUZANNE GEE Not Available Start: 03-25-2024 ambulatory Yannick Oropezakaren Facility:[facility] Start: 03-24-2024 End: 03-24-2024 ambulatory [facility] Work Phone: Start: 03-24-2024 End: 03-24-2024 Patient encounter procedure [facility] Work Phone: Start: 03-23-2024 Non-patient / Non-visit [facility] Work Phone: Start: 03-23-2024 [...] Neurology Start: 02-04-2024 End: 02-04-2024 ambulatory REZA DELACRUZMerna Not Available Start: 01-07-2024 End: 01-07-2024 Orders Only Raven Smith GOLF BALL INSPECTOR-BUS ASSISTANT Work Phone: [facility] Comment on above: Heterogeneously dens e tissue of both breasts on mammography (Primary Dx) Start: 12-24-2023 End: 12-24-2023 [facility] Work Phone: Start: 12-24-2023 End: 12-24-2023 Patient encounter procedure [facility] Work Phone: Start: 12-12-2023 End: 12-12-2023 ambulatory ABIODUN CASTANO Facility:[facility] Start: 12-12-2023 End: 12-12-2023 Patient encounter procedure Abiodun Mcleod Emir DO Work Phone: [facility] Comment on above: Fasciculation (Prima ry Dx); Hyperreflexia; Degeneration of lumbar or lumbosacral intervertebral disc Start: 12-09-2023 End: 12-09-2023 ambulatory Abiodun Mcleod Emir DO Work Phone: [facility] Comment on above: MRI brain cervical t horacic Start: 12-09-2023 E-mail encounter fro m caregiver Abiodun M Emir DO Work Phone: [facility] Start: 12-09-2023 End: 12-09-2023 Subsequent hospital visit by physician [facility] Cookie (1.5t) Work Phone: Radiology Comment on above: 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 ] Start: 11-12-2023 Non-patient / Non-visit [facility] Work Phone: Start: 11-10-2023 End: 11-10-2023 ambulatory [facility] Work Phone: Start: 11-10-2023 End: 11-10-2023 Patient encounter procedure [facility] Work Phone: Start: 11-06-2023 Telephone encounter Abiodun Shani Arpita calabrese DO Work Phone: [facility] Comment on above: MRI Appointment Start: 11-05-2023 Telephone encounter Aboidun Mcleod Arpita calabrese DO Work Phone: [facility] Start: 10-28-2023 Telephone encounter Abiodun Mcleod Arpita calabrese DO Work Phone: [facility] Comment on above: MRI Appointment; Fol low Up Start: 10-25-2023 Non-patient / Non-visit [facility] Work Phone: Start: 10-23-2023 ambulatory Abiodun Mcleod Srideviludmila blanca DO Work Phone: [facility] Start: 10-23-2023 Patient encounter procedure Abiodun Castano DO Work Phone: [facility] Comment on above: Today's Appointment Start: 10-21-2023 End: 10-21-2023 ambulatory ABIODUN CASTANO Facility:[facility] Start: 10-21-2023 End: 10-21-2023 Patient encounter procedure Abiodun Castano DO Work Phone: [facility] Comment on above: Lumbar radiculopathy (Primary Dx); Hyperreflexia; Cardiac murmur; Fasciculation; Neuromuscular scoliosis of thoracic region; Chiari I malformation (HCC); Spinal stenosis of cervical region; Syringomyelia and syringobulbia (HCC); Demyelinating disease of central nervous system (HCC) Start: 10-07-2023 Non-patient / Non-visit [facility] Work Phone: Start: 09-30-2023 End: 09-30-2023 ambulatory YANNICK VELÁZQUEZ [facility] Start: 09-30-2023 End: 09-30-2023 Office outpatient visit 15 minutes [facility] Ob Tire Care Manager [facility] Certified Nurse Tire Care Manager - [employer] [place] Comment on above: PMB (postmenopausal bleeding) (Primary Dx); Vaginal atrophy Start: 09-24-2023 Non-patient / Non-visit [facility] [employer] Professional [employer] Work Phone: Start: 09-17-2023 End: 09-17-2023 ambulatory [facility] Work Phone: Start: 09-17-2023 End: 09-17-2023 [facility] Start: 06-17-2023 End: 06-17-2023 ambulatory Yannick Velázquez Other [place] [employer] Other Start: 06-17-2023 Office outpatient vi sit [address] [facility] Start: 05-27-2023 End: 05-28-2023 ambulatory Yannick Velázquez DO Facility[place] Start: 05-23-2023 End: 05-23-2023 ambulatory Yannick Velázquez Other [employer] Other Start: 05-23-2023 Telephone encounter Yannick Velázquez [facility] Start: 05-22-2023 End: 05-22-2023 ambulatory Yannick Velázquez Other [employer] Other Start: 05-22-2023 Office outpatient vi sit 25 minutes Yannick Velázquez [facility] [place] Start: 04-29-2023 End: 04-29-2023 ambulatory Yannick Velázquez Other [employer] Other Start: 04-29-2023 Telephone encounter Yannick Velázquez [facility] Start: 04-16-2023 End: 04-16-2023 ambulatory Yannick Velázquez Other [employer] Other Start: 04-16-2023 Telephone encounter Yannick Velázquez [facility] [place] Start: 04-15-2023 End: 04-15-2023 ambulatory Yannick Velázquez Other [employer] Other Start: 04-15-2023 Telephone encounter Yannick Velázquez [facility] Start: 04-02-2023 End: 04-02-2023 ambulatory Yannick Velázquez Other [employer] Other Start: 04-02-2023 Telephone encounter Yannick Velázquez [facility] [place] Start: 03-19-2023 End: 03-19-2023 ambulatory Victorina Martinez Other [employer] Other Start: 03-19-2023 Office outpatient vi sit 15 minutes Victorina Martinez [facility] Start: 03-13-2023 End: 03-13-2023 ambulatory Yannick Velázquez Other [employer] Other Start: 03-13-2023 Telephone encounter Yannick Velázquez [facility] [place] Start: 03-05-2023 End: 03-05-2023 ambulatory Yannick Velázquez Other [employer] Other Start: 03-05-2023 Telephone encounter Yannick Velázquez [facility] Start: 03-03-2023 End: 03-03-2023 ambulatory Yannick Velázquez Other [employer] Other Start: 03-03-2023 Telephone encounter Yannick Velázquez [facility] [place] Start: 02-27-2023 End: 02-27-2023 ambulatory DO Yannick Velázquez Work Phone: [facility] Work Phone: Start: 02-27-2023 End: 02-27-2023 Patient encounter procedure DO Yannick Velázquez Work Phone: [facility] [place] Work Phone: Start: 02-23-2023 End: 02-23-2023 Emergency department patient visit DO Yannick Velázquez Work Phone: [facility]-Emergency Room Work Phone: Start: 02-14-2023 End: 02-14-2023 ambulatory Victorina Blades Other [employer] Other Start: 02-14-2023 Telephone encounter Victorina Blades [facility] Start: 02-12-2023 End: 02-12-2023 ambulatory Victorina Blades Other [employer] Other Start: 02-12-2023 Office outpatient vi sit 15 minutes Victorina Blades [facility] Start: 02-10-2023 End: 02-10-2023 ambulatory Yannick Velázquez Other [employer] Other Start: 02-10-2023 Telephone encounter Yannick Velázquez [facility] [place] Start: 02-05-2023 End: 02-05-2023 ambulatory Yannick Velázquez Other [employer] Other Start: 02-05-2023 Telephone encounter Yannick Velázquez [facility] [place] Start: 01-21-2023 End: 01-21-2023 ambulatory Tonia Sandoval Other [employer] Other Start: 01-21-2023 Office outpatient vi sit 25 minutes Tonia Sandoval [facility] [place] Start: 01-08-2023 End: 01-08-2023 ambulatory Yannick Velázquez Other [employer] Other Start: 01-08-2023 Telephone encounter Yannick Velázquez [facility] [place] Start: 01-03-2023 End: 01-03-2023 ambulatory Yannick Velázquez Other [employer] Other Start: 01-03-2023 Telephone encounter Yannick Velázquez [facility] [place] Start: 01-02-2023 Telephone encounter Yannick Velázquez [facility] [place] Start: 01-02-2023 End: 01-02-2023 ambulatory DO Yannick Oropezakaren Work Phone: [facility] Work Phone: Start: 01-02-2023 End: 01-02-2023 Patient encounter procedure DO Yannick Johnnakaren Work Phone: [facility] [place] Work Phone: Start: 12-20-2022 End: 12-20-2022 ambulatory Yannick Velázquez Other [employer] Other Start: 12-20-2022 Office outpatient vi sit 25 minutes Yannick Velázquez [facility] [place] Start: 09-24-2022 End: 09-24-2022 ambulatory Victorina Martinez Other [employer] Other Start: 09-24-2022 Telephone encounter Victorina Andino [facility] [employer] Start: 09-16-2022 End: 09-16-2022 ambulatory Yannick Velázquez Other [employer] Other Start: 09-16-2022 Office outpatient vi sit 10 minutes Yannick Velázquez [facility] [place] Start: 09-16-2022 Telephone encounter Yannick Velázquez [facility] Start: 08-29-2022 End: 08-29-2022 ambulatory Yannick Velázquez Other [employer] Other Start: 08-29-2022 Telephone encounter Yannick Velázquez [facility] Start: 08-28-2022 End: 08-28-2022 ambulatory DO Yannick Velázquez Work Phone: [facility] Work Phone: Start: 08-28-2022 End: 08-28-2022 Patient encounter procedure DO Yannick Velázquez Work Phone: [facility] [place] Work Phone: Start: 08-07-2022 End: 08-07-2022 ambulatory Yannick Velázquez Other [employer] Other Start: 08-07-2022 Telephone encounter Yannick Velázquez [facility] [place] Start: 07-24-2022 End: 07-24-2022 ambulatory Yannick Velázquez Other [employer] Other Start: 07-24-2022 Telephone encounter Yannick Velázquez [facility] [place] Start: 07-19-2022 End: 07-19-2022 ambulatory Yannick Velázquez Other [employer] Other Start: 07-19-2022 Office outpatient vi sit 25 minutes Yannick Velázquez [facility] [place] Start: 07-03-2022 End: 07-04-[address] YANNICK VELÁZQUEZ Facility: Start: 07-03-2022 Telephone encounter Yannick Velázquez [facility] [place] Start: 06-24-2022 End: 06-24-2022 ambulatory Yannick Velázquez Other [employer] Other Start: 06-24-2022 Office outpatient vi sit 15 minutes Yannick Velázquez [facility] [place] Start: 06-24-2022 Telephone encounter Yannick Velázquez [facility] [place] Start: 05-29-2022 End: 05-29-2022 ambulatory Yannick Velázquez Other [employer] Other Start: 05-29-2022 Telephone encounter Yannick Velázquez [facility] [place] Start: 05-09-2022 End: 05-09-2022 ambulatory Yannick Velázquez Other [employer] Other Start: 05-09-2022 Telephone encounter Yannick Velázquez [facility] [place] Start: 04-10-2022 End: 04-10-2022 ambulatory Yannick Velázquez Other [employer] Other Start: 04-10-2022 Office outpatient vi sit 15 minutes Yannick Velázquez [facility] [place] Start: 03-26-2022 End: 03-26-2022 ambulatory Yannick Velázquez Other [employer] Other Start: 03-26-2022 Office outpatient vi sit 15 minutes Yannick Velázquez [facility] [place] Start: 03-20-2022 End: 03-21-[address] YANNICK VELÁZQUEZ Facility: Start: 02-15-2022 End: 02-15-2022 ambulatory Yannick Velázquez Other [employer] Other Start: 02-15-2022 Telephone encounter Yannick Velázquez [facility] [place] Start: 01-28-2022 End: 01-28-2022 Patient encounter procedure [employer] Shara Cutler Work Phone: [facility] [place] Start: 01-28-2022 End: 01-28-2022 ambulatory Shara Cutler Other [employer] Other Start: 01-28-2022 Office outpatient vi sit 15 minutes Shara Cutler [facility] [place] Start: 01-11-2022 End: 01-11-2022 ambulatory Yannick Velázquez Other [employer] Other Start: 01-11-2022 Telephone encounter Yannick Velázquez [facility] [place] Start: 01-10-2022 End: 01-11-[address] YANNICK VELÁZQUEZ Facility:[facility] Start: 01-09-2022 End: 01-09-2022 ambulatory Yannick Velázquez Other [employer] Other Start: 01-09-2022 Office outpatient vi sit 15 minutes Yannick Velázquez [facility] [place] Start: 01-08-2022 End: 01-08-2022 ambulatory Yannick Velázquez Other [employer] Other Start: 01-08-2022 Telephone encounter Yannick Velázquez [facility] [place] Start: 12-24-2021 End: 12-24-2021 ambulatory Yannick Velázquez Other [employer] Other Start: 12-24-2021 Telephone encounter Yannick Velázquez [facility] [place] Start: 12-11-2021 End: 12-11-2021 ambulatory Yannick Velázquez Other [employer] Other Start: 12-11-2021 Office outpatient vi sit 15 minutes Yannick Velázquez [facility] [place] Start: 12-11-2021 Telephone encounter Yannick Velázquez [facility] [place] Start: 09-10-2021 End: 09-10-2021 ambulatory Yannick Velázquez Other [employer] Other Start: 09-10-2021 Office outpatient vi sit 15 minutes Yannick Velázquez [facility] [place] Start: 08-01-2021 End: 08-01-[address] YANNICK VELÁZQUEZ Facility: Start: 06-11-2021 End: 06-11-2021 ambulatory aYnnick Velázquez Other [facility] Other Start: 06-11-2021 Office outpatient vi sit 15 minutes Yannick Velázquez [facility] Start: 09-06-2020 End: 09-06-2020 Patient encounter procedure David Fan Diya Work Phone: Urology Comment on above: Dysuria; Cystocele with prolapse; Nocturia Procedures Date Procedure Procedure Detail Performing Clinician Start: 10-26-2024 Urine test visual color cmprsn meths Katia Whitt MD Work Phone: Start: 10-20-2024 CT heart calcium score wo Yannick Velázquez DO Work Phone: Start: 08-31-2024 Follow-up visit Follow-up KATIA WHITT Start: 07-01-2024 Mammography Katia Ingram ch, MD Work Phone: Start: 06-10-2024 Mri brain brain stem w/o w/contrast material Janna Gilman MD Work Phone: Start: 05-10-2024 Bacteria identified in Urine by Culture Generic External Data Provider Start: 01-07-2024 Mammography [facility] Start: 12-09-2023 Mri brain brain [...] [Identifier] in Cervix by Cyto stain [employer] Care Manager Start: 01-28-2022 X-ray of right foot [employer] -[employer] Shara Cutler Work Phone: Start: 09-06-2020 Urnls dip stick/tabl et rgnt auto w/o microscopy David Keane Work Phone: Start: 02-17-2020 Cystoscopy Florentin MAI LL section Florentin NIL L Excision of bunion Florentin Devaughn ILL Ligation of fallopian tube Shani ichkaylen JAMIN Lysis of adhesions Florentin Giordano ILL Tonsillectomy Florentin NEVILLE Plan of Treatment Date Care Activity Detail Author Start: 12-19-2026 DTaP,Tdap and Td Vac cines (2 - Td or Tdap) DTaP,Tdap and Td Vaccines (2 - Td or Tdap) [facility] Start: 12-19-2026 DTaP/Tdap/Td Vaccine s (2 - Td or Tdap) DTaP/Tdap/Td Vaccines (2 - Td or Tdap) [facility] Start: 12-19-2026 Urine microalbumin profile DTaP,Tdap,Td Vaccine (2 - Td or Tdap) [facility] Start: 12-21-2025 Adult BMI Screening Adult BMI Screen ing [facility] Start: 12-21-2025 Tobacco Screening Tobacco Screening [facility] Start: 11-09-2025 Adult BMI Screening Adult BMI Screen ing [facility] Start: 11-09-2025 Tobacco Screening Tobacco Screening [facility] Start: 10-26-2025 Adult BMI Screening Adult BMI Screen ing [facility] Start: 10-26-2025 Tobacco Screening Tobacco Screening [facility] Start: 08-31-2025 Adult BMI Screening Adult BMI Screen ing [facility] Start: 08-31-2025 Tobacco Screening Tobacco Screening [facility] Start: 07-01-2025 Screening for malign ant neoplasm of breast Mammogram [facility] Start: 06-01-2025 Adult BMI Screening Adult BMI Screen ing [facility] Start: 06-01-2025 Tobacco Screening Tobacco Screening [facility] Start: 05-22-2025 Screening for malign ant neoplasm of cervix Pap Smear [facility] Start: 05-18-2025 Adult BMI Screening Adult BMI Screen ing [facility] Start: 05-18-2025 Tobacco Screening Tobacco Screening [facility] Start: 05-02-2025 End: 05-02-2025 Patient encounter procedure 05/02/2025 12:30 PM EDT Office Visit [facility] [address] [place] [phone] Maryse Zapata MD [address] [place] [address] [facility] Start: 03-07-2025 Influenza vaccination [facility] Start: 01-06-2025 Screening for malign ant neoplasm of breast [facility] Start: 12-21-2024 End: 12-21-2024 Patient encounter procedure 12/21/2024 8:30 AM EDT Office Visit [facility] [address] [phone] Katia Whitt MD [address] [address] [facility] Start: 11-09-2024 End: 11-09-2024 Patient encounter procedure 11/09/2024 11:30 AM EDT Office Visit [facility] [place] [id number] Katia Whitt MD [address] [place] [address] [facility] Start: 10-26-2024 End: 10-26-2024 Patient encounter procedure 10/26/2024 3:00 PM EDT Procedure visit [facility] [address] [place] [phone] Katia Whitt MD [address] [place], [place] [id number] [facility] Start: 10-26-2024 End: 10-26-2025 Surgical Pathology Surgical Pathology Pathology and Cytology Routine Thickened endometrium Expected: 10/26/2024 (Approximate), Expires: 10/26/2025 [facility] Work Phone: Comment on above: Expected: 10/26/2024 (Approximate), Expires: 10/26/2025 Start: 09-29-2024 Adult BMI Screening Adult BMI Screen ing [facility] Start: 09-29-2024 Tobacco Screening Tobacco Screening [facility] Start: 08-31-2024 End: 08-31-2024 Patient encounter procedure 08/31/2024 3:45 PM EST Office Visit [facility] [address] [place] [phone] Katia Whitt MD [address] [place] [address] [facility] Start: 08-19-2024 End: 08-19-2024 Patient encounter procedure [facility] Start: 08-04-2024 End: 08-04-2024 Patient encounter procedure [facility] Comment on above: Arrived Start: 06-11-2024 End: 06-11-2024 Patient encounter procedure 06/11/2024 2:30 PM EST Appointment [facility] [address] [place] [address] [facility] Start: 06-07-2024 End: 06-07-2025 MR Lumbar spine WO contrast MR lumbar spine wo contrast Imaging Routine Benign fasciculation-cramp syndrome Chronic low back pain, unspecified back pain laterality, unspecified whether sciatica present Expected: 06/07/2024 (Approximate), Expires: 06/07/2025 [facility] Comment on above: Expected: 06/07/2024 (Approximate), Expires: 06/07/2025 Start: 06-01-2024 End: 06-01-2025 US Pelvis transabdominal and transvaginal Ultrasound pelvic with transvaginal Imaging Routine Vaginal lesion Expected: 06/01/2024, Expires: 06/01/2025 [facility] Work Phone: Comment on above: Expected: 06/01/2024 , Expires: 06/01/2025 Start: 06-01-2024 End: 06-01-2024 Patient encounter procedure 06/01/2024 9:00 AM EST Procedure visit [facility] [address] [place] [address] Katia Whitt MD [address] [address] [facility] Start: 05-31-2024 End: 05-31-2025 Basic metabolic 1998 panel - Serum or Plasma Basic metabolic panel Lab Routine Restless legs Benign fasciculation-cramp syndrome Expected: 05/31/2024 (Approximate), Expires: 05/31/2025 [facility] Comment on above: Expected: 05/31/2024 (Approximate), Expires: 05/31/2025 Start: 05-31-2024 End: 05-31-2025 Ferritin [Mass/volume] in Serum or Plasma Fer[facility] Lab Routine Restless legs Benign fasciculation-cramp syndrome Expected: 05/31/2024 (Approximate), Expires: 05/31/2025 [facility] Comment on above: Expected: 05/31/2024 (Approximate), Expires: [...] fasciculation-cramp syndrome Expected: 05/31/2024 (Approximate), Expires: 05/31/2025 [facility] Comment on above: Expected: 05/31/2024 (Approximate), Expires: 05/31/2025 Start: 05-31-2024 End: 05-31-2025 Thyrotropin [Units/volume] in Serum or Plasma TSH Lab Routine Restless legs Benign fasciculation-cramp syndrome Expected: 05/31/2024 (Approximate), Expires: 05/31/2025 [facility] Work Phone: Comment on above: Expected: 05/31/2024 [...] fasciculation-cramp syndrome Expected: 05/31/2024 (Approximate), Expires: 05/31/2025 [facility] Comment on above: Expected: 05/31/2024 (Approximate), Expires: 05/31/2025 Start: 05-31-2024 End: 05-31-2025 Vitamin B6 Vitamin B6 Lab Routine Restless legs Benign fasciculation-cramp syndrome Expected: 05/31/2024 (Approximate), Expires: 05/31/2025 [facility] Comment on above: Expected: 05/31/2024 (Approximate), Expires: 05/31/2025 Start: 05-31-2024 End: 05-31-2024 [facility] Comment on above: Arrived Start: 05-25-2024 End: 05-25-2024 Patient encounter procedure 05/25/2024 2:30 PM EST Office Visit [facility] [place] [address] [place] [address] [facility] [place] Start: 05-18-2024 End: 05-18-2025 Bacteria identified in Urine by Culture Urine Culture Microbiology Routine Urinary urgency Expected: 05/18/2024 (Approximate), Expires: 05/18/2025 [facility] Work Phone: Comment on above: Expected: 05/18/2024 (Approximate), Expires: 05/18/2025 Start: 05-18-2024 End: 05-18-2025 DXA Skeletal system Views for bone density Dexa scan central skeletal Imaging Routine Screening for osteoporosis Postmenopausal Hx of osteopenia Expected: 05/18/2024, Expires: 05/18/2025 [facility] Comment on above: Expected: 05/18/2024 , Expires: [...] procedure 04/15/2024 11:00 AM EDT Office Visit [facility] [address] [phone] Suzanne Gee, [address] [place] [address] Arrived [facility] Comment on above: Arrived Start: 03-24-2024 Patient referral [facility] Work Phone: Start: 03-23-2024 End: 03-23-2024 Patient encounter procedure 03/23/2024 3:00 PM EDT Office Visit Neurology [address] [id number] Janna Gilman MD [address] [id number] CONSULT TO NEUROLOGY Neurology Comment on above: CONSULT TO NEUROLOGY Start: 03-23-2024 End: 06-22-2024 CELIAC SCREEN WITH REFLEX [facility] Work Phone: Comment on above: Expected: 03/23/2024 , Expires: 06/22/2024 Start: 03-23-2024 End: 06-22-2024 Ceruloplasmin [Mass/volume] in Serum or Plasma [facility] Comment on above: Expected: 03/23/2024 , Expires: 06/22/2024 Start: 03-23-2024 End: 06-22-2024 COPPER BLOOD [facility] Comment on above: Expected: 03/23/2024 , Expires: 06/22/2024 Start: 03-23-2024 End: 06-22-2024 IMMUNOFIXATION SCREEN, SERUM [facility] Comment on above: Expected: 03/23/2024 , Expires: 06/22/2024 Start: 03-23-2024 End: 06-22-2024 KAPPA/SORIANO,FREE,SER [facility] Comment on above: Expected: 03/23/2024 , Expires: 06/22/2024 Start: 03-23-2024 End: 06-22-2024 Zinc [Mass/volume] in Serum or Plasma [facility] Comment on above: Expected: 03/23/2024 , Expires: 06/22/2024 Start: 03-07-2024 Covid-19 Vaccine ( season) Covid-19 Vaccine () [facility] Start: 03-07-2024 Covid-19 Vaccine () Covid-19 Vaccine () [facility] Start: 03-07-2024 Influenza vaccination C [facility] Start: 01-07-2024 End: 01-06-2025 NM Guidance limited for localization of tumor NM Molecular breast imaging localization limited area Imaging Routine Heterogeneously dense tissue of both breasts on mammography Expected: 01/07/2024, Expires: 01/06/2025 Close Work Phone: Comment on above: Expected: 01/07/2024 , Expires: 01/06/2025 Start: 01-05-2024 End: 01-05-2024 Patient encounter procedure 01/05/2024 9:00 AM EDT Appointment [facility] [address] [place] [phone] [facility] Start: 01-03-2024 Screening for malign ant neoplasm of breast Mammogram Screening [facility] Start: 12-12-2023 End: 12-12-2023 Patient encounter procedure 12/12/2023 10:50 AM EDT Office Visit [facility] [address] [place] [address] [place] [address] [place] [address] mri (3) follow up [facility] Comment on above: mri (3) follow up Start: 12-09-2023 End: 12-09-2023 Patient encounter procedure 12/09/2023 10:40 AM EDT Appointment Radiology [address] [place] [address] 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] Radiology Comment on above: 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 ] Start: 12-09-2023 End: 12-09-2023 Patient encounter procedure Radiology Comment on above: 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 ] Start: 11-25-2023 End: 11-25-2023 Patient encounter procedure 11/25/2023 2:10 PM EDT Office Visit [facility] [address] [place] [address] [place] [address] [place] [address] MRI follow ups [facility] Comment on above: MRI follow ups Start: 11-16-2023 End: 11-16-2023 Patient encounter procedure 11/16/2023 1:20 PM EDT Appointment [facility] Radiology MRI [address] [place] [address] 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]; Demyelinating disease of central nervous system (HCC) [G37.9] [facility] MRI Comment on above: 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 ]; Demyelinating disease of central nervous system (HCC) [G37.9] Start: 11-16-2023 End: 11-16-2023 Patient encounter procedure [facility] MRI Comment on above: 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 ]; Demyelinating disease of central nervous system (HCC) [G37.9] Start: 09-30-2023 End: 09-29-2024 US Pelvis transabdominal and transvaginal Ultrasound pelvic with transvaginal Imaging Routine PMB (postmenopausal bleeding) Expected: 09/30/2023, Expires: 09/29/2024 Close Work Phone: Comment on above: Expected: 09/30/2023 , Expires: 09/29/2024 Start: 07-07-2023 Behavioral Health Screening Behavioral Health Screening [facility] Start: 03-07-2023 Covid-19 Vaccine ( season) Covid-19 Vaccine ( season) [facility] Start: 03-07-2023 Influenza vaccination Influenza Vacc ine [facility] Start: 03-07-2020 Influenza vaccination INFLUENZA (#1) [facility] Start: 2016 Administration of varicella zoster vaccine Zoster (Shingles) Vaccine (1 of 2) [facility] Start: 2016 Pneumococcal vaccination Pneum ococcal Vaccine (1 of 1 - PCV) [facility] Start: 2016 Pneumococcal Vaccine : 50+ (1 of 1 - PCV) Pneumococcal Vaccine: 50+ (1 of 1 - PCV) [facility] Start: 2016 Screening for malign ant neoplasm of colon [facility] Start: 2016 SHINGRIX VACCINE (1 of 2) PATEL GRIX VACCINE (1 of 2) [facility] Start: 2016 Zoster Vaccines (1 of 2) Zoster Vacc rian (1 of 2) [facility] Start: 10-11-2011 DIABETES SCREEN DIABETES SCREEN [facility] Start: 10-11-2011 Diabetes Screening Diabetes Screenin g [facility] Start: 10-11-2011 Lipid panel Lipid Screening [facility] Start: 10-11-2011 LIPID SCREEN LIPID SCREEN [facility] Start: 10-11-2011 Screening for malign ant neoplasm of colon [facility] Start: 2006 Mammography MAMMOGRAM [facility] Start: 1996 HPV TESTING HPV TESTING [facility] Start: 1996 Screening for malign ant neoplasm of cervix HPV Testing [facility] Start: 10-11-1987 PAP TESTING PAP TESTING [facility] Start: 10-11-1987 Screening for malign ant neoplasm of cervix [facility] Start: 1985 Hepatitis B Vaccine (1 of 3 - 19+ 3-dose series) Hepatitis B Vaccine (1 of 3 - 19+ 3-dose series) [facility] Start: 1985 Hepatitis B Vaccines (1 of 3 - 19+ 3-dose series) Hepatitis B Vaccines (1 of 3 - 19+ 3-dose series) [facility] Start: 1985 Urine microalbumin profile DTAP,TDAP,TD (1 - Tdap) [facility] Start: 1984 Anxiety Screening Anxiety Screening [facility] Start: 1984 Depression Screening Depression Scre ening [facility] Start: 1984 HEPATITIS C SCREENING HEPATITIS C [facility] Start: 1984 Hepatitis C screening Hepatitis C [facility] Start: 1984 HIV SCREENING HIV SCREENING [facility] Start: 1984 HIV screening HIV Screening [facility] Start: 1978 Adult depression screening assessment DEPRESSION SCREENING [facility] Start: 10-11-1967 MMR Vaccines (1 of 1 - Standard series) MMR Vaccines (1 of 1 - Standard series) [facility] Start: 1966 HIV screening HIV Screening [facility] Start: 1966 Lip[address]id Panel [facility] Start: 1966 Screening for malign ant neoplasm of colon [facility] Start: 1966 Yearly Adult Physical Yearly Adult P hysical [facility] Comprehensive metabo lic 2000 panel - Serum or Plasma [facility] End: 12-01-2024 CT for calcium scoring WO contrast and CTA W contrast IV Heart and coronary arteries [facility] Service Area Work Phone: Comment on above: Once for 1 Occurrenc es starting 12/01/2024 until 12/01/2024 CT Heart [facility] End: 06-05-2025 MR Brain WO and W contrast IV MRI BRAIN WO/W IVCON Radiology Routine Brain cyst 1 Occurrences starting 05/06/2024 until 06/05/2025 [facility] Work Phone: Comment on above: 1 Occurrences starti ng 05/06/2024 until 06/05/2025 End: 11-25-2024 MR Brain WO contrast MRI BRAIN WO IVCON Radiology Routine Hyperreflexia Demyelinating disease of central nervous system (HCC) 1 Occurrences starting 10/27/2023 until 11/25/2024 [facility] Comment on above: 1 Occurrences starti ng 10/27/2023 until 11/25/2024 End: 11-25-2024 MR Cervical spine WO contrast MRI CERVICAL SPINE WO IVCON Radiology Routine Hyperreflexia Neuromuscular scoliosis of thoracic region Chiari I malformation (HCC) Spinal stenosis of cervical region Syringomyelia and syringobulbia (HCC) Demyelinating disease of central nervous system (HCC) 1 Occurrences starting 10/27/2023 until 11/25/2024 [facility] Work Phone: Comment on above: 1 Occurrences starti ng 10/27/2023 until 11/25/2024 End: 11-25-2024 MR Thoracic spine WO contrast MRI THORACIC SPINE WO IVCON Radiology Routine 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) Demyelinating disease of central nervous system (HCC) 1 Occurrences starting 10/27/2023 until 11/25/2024 [facility] Comment on above: 1 Occurrences starti ng 10/27/2023 until 11/25/2024 Patient Education Radiculopathy (DC) [facility] Work Phone: Patient referral [facility] Work Phone: T3 reverse measurement [facility] End: 05-18-2025 Urinalysis Urinalysis Lab Routine Urinary urgency 1 Occurrences starting 05/18/2024 until 05/18/2025 [facility] Comment on above: 1 Occurrences starti ng 05/18/2024 until 05/18/2025 [facility] Immunizations Immunization Date Immunization Notes Care Provider Sindy sorensen 12-19-2016 tetanus toxoid, reduced diphtheria toxoid, and acellular pertussis vaccine, adsorbed Yannick Velázquez Other [facility] NEGATED: Highlighted row has not occurred!06-11-2021 influenza, seasonal, injectable Patient Objection Yannick Velázquez Other [facility] Payers Date Payer Category Payer Self-pay [id number] 2023 Managed Care (Private) MEDICAL M [employer] SUPER MED [id number] 2014 Commercial Managed C are - PPO MEDICAL M[employer]UAL [id number] 2014 Private Health Insurance [id number] .[id number]. [id number] 2014 Unknown 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 [id number] 2014-Present PPO [id number] 2014 Unknown 1966 Unknown [id number] 2.16.840.1.153142.3.579.2. 593 1966 Unknown [id number] 2.16.840.1.497017.3.579.2. 593 1966 Unknown [id number] 2.16.840.1.371746.3.579.2. 593 1966 Unknown [id number] 2.16.840.1.806007.3.579.2. 593 1966 Unknown [id number] 2.16.840.1.335735.3.579.2. 196 1966 Unknown [id number] 2.16.840.1.861335.3.579.2. 128 1966 Unknown [id number] 2.16.840.1.244680.3.579.2. 727 1966 Unknown [id number] 2.16840.1.782182.3.579.2. 1285 1966 Unknown [id number] 2.16840.1.200956.3.579.2. 1285 1966 Unknown [id number] 2.840.1.417326.3.579.2. 9 1966 Unknown [id number] 2.16840.1.852211.3.579.2. 9 1966 Unknown [id number] 2.840.1.471403.3.579.2. 1258 1966 Unknown [id number] 2.16.840.1.042992.3.579.2. 9 1966 Unknown [id number] 2.16840.1.852296.3.579.2. 128 1966 Unknown [id number] 2.16840.1.741571.3.579.2. 1285 1966 Unknown [id number] 2.16840.1.561637.3.579.2. 1285 1966 Unknown [id number] 2.16840.1.802735.3.579.2. 1285 1966 Unknown [id number] 2.16840.1.129858.3.579.2. 1285 1966 Unknown [id number] 2.16.840.1.638850.3.579.2. 1286 1966 Unknown [id number] 2.16.840.1.324887.3.579.2. 1285 1966 Unknown [id number] 2.16.840.1.747604.3.579.2. 124 1966 Unknown [id number] 2.16.840.1.940458.3.579.2. 1285 1966 Unknown [id number] 2.16.840.1.372663.3.579.2. 1285 1966 Unknown [id number] 2.16.840.1.181358.3.579.2. 1285 1966 Unknown [id number] 2.16.840.1.754435.3.579.2. 1285 1966 Unknown [id number] 2.16840.1.327001.3.579.2. 1285 1966 Unknown [id number] 2.16.840.1.519642.3.579.2. 1285 1966 Unknown [id number] 2.16840.1.690250.3.579.2. 1286 1959 Unknown [id number] 2.16840.1.997479.19 Unknown [id number] 2.16840.1.381582.3.579.2. 531 Social History Date Type Detail Facility Start: 09-06-2020 End: 05-08-2022 Tobacco smoking status COIS Never smoker [facility] Start: 09-06-2020 End: 05-08-2022 Tobacco use and exposure Never used [facility] Start: 09-06-2020 End: 12-21-2024 Alcohol intake Current drinker of alcohol (finding) [facility] Start: 08-17-2020 End: 09-06-2020 Alcohol intake [facility] Start: 1965 Sex Assigned At Female [facility] Start: 11-21-2024 End: 12-01-2024 Exposure to SARS-CoV-2 (event) Not sure [facility] Start: 08-17-2020 End: 10-21-2023 Sex Assigned At [facility] Adult Depression Screening Assessment 0 [facility] Start: 09-06-2020 Gender identity Identifies as female gender (finding) [facility] Start: 09-06-2020 Sexual orientation Heterosexual (finding) [facility] Start: 03-23-2024 Alcohol Comment 1x/week [facility] How often to you hav e a drink containing alcohol? Monthly or less [facility] Start: 02-04-2024 Alcohol Comment Socially [facility] Start: 1965 Sex assigned at Not on file [facility] Start: 05-08-2022 Alcohol Comment twice a month [facility] [employer] [facility] Start: 02-09-2015 End: 10-20-2024 Sex Female (finding) [facility] Tobacco smoking stat [facility] Tobacco smoking consumption unknown [facility] Work Phone: Functional Status Date Assessment Result Facility 04-20-2024 Functional Status N/A [facility] Clinical Notes 06-11-2021 to 01-13-2025 Telephone Encounter - Eugenio Brown CMA - 01/13/2025 4:23 PM EDTTelephone Encounter - Eugenio Brown CMA - 01/13/2025 4:23 PM Joaquin Whitt MD - 12/21/2024 8:30 AM EDT Note Date & Type Note Facility 01-13-2025 Miscellaneous Notes Received an Rx from [facility] with a new Rx for HRT per pt request. Spoke with Dr Whitt and she denied signing Rx and wanted to try sending in a different medication. Called pt back and advised her of Dr Whitt not signing Rx from [facility] and pt was upset. Advised pt chief underwriter would ask Raven Hernández CNP if this is something she could sign since it does not have any Testosterone in the cream or capsules. Pt was agreeable. Call to [facility] due to Rx requiring JOANN # and if it could be signed without a JOANN number since Raven does not have one. pipe organ technician stated they already received script from another doctor that was signed. Call to pt was made and she stated her PCP signed the Rx and approved it for her. Pt was very agitated on the phone and stated she will not be coming back to our office as she needs a doctor that will change her medications on a moments notice due to her having such high anxiety. documented in this encounter [facility] 01-13-2025 Telephone encounter Note Received an Rx from [facility] with a new Rx for HRT per pt request. Spoke with Dr Whitt and she denied signing Rx and wanted to try sending in a different medication. Called pt back and advised her of Dr Whitt not signing Rx from [facility] and pt was upset. Advised pt chief underwriter would ask Raven Hernández CNP if this is something she could sign since it does not have any Testosterone in the cream or capsules. Pt was agreeable. Call to [facility] due to Rx requiring JOANN # and if it could be signed without a JOANN number since Raven does not have one. pipe organ technician stated they already received script from another doctor that was signed. Call to pt was made and she stated her PCP signed the Rx and approved it for her. Pt was very agitated on the phone and stated she will not be coming back to our office as she needs a doctor that will change her medications on a moments notice due to her having such high anxiety. [facility] 12-21-2024 History of Presen t illness Narrative Edna Sultana is a 59 y.o.female. No LMP recorded. Patient is postmenopausal.. She presents for medication follow up. She is currently on the 0.0375 mg/24hr estradiol patch, 200mg Prometrium, and estradiol cream. She notes a large difference on the HRT. She reports better sleep and less anxiety. She would like to discuss testosterone pellet therapy. She would also like to discuss increasing her estrogen patch dose to help with her anxiety and skin dryness. NO PMB OB History 2 Para 2 Term 2 [...] 07/03/2018 Performed by Osmany Dunn MD at [facility] 1988 TONSILLECTOMY TUBAL LIGATION FAMILY [...] Dispense Refill ALPRAZolam (XANAX) 0.25 mg tablet TAKE 1/2-1 TABLET BY MOUTH EVERY 8-12 HOURS NEEDED X 12 DAYS cholecalciferol 1,000 units tablet Take 1 tablet (1,000 Units total) by mouth in the morning. estradioL (ESTRACE) 0.01 % (0.1 mg/gram) vaginal cream Insert 1 g into the vagina 2 (two) times a week. 42.5 g 11 estradioL (VIVELLE-DOT) 0.0375 mg/[address] 1 PATCH ON THE SKIN 2 TIMES A WEEK. 24 patch 4 magnesium oxide (MAGOX) 400 mg tablet Take 1 tablet (400 mg total) by mouth in the morning. progesterone (PROMETRIUM) 200 mg capsule Take 1 capsule (200 mg total) by mouth in the morning. 30 capsule 11 No current facility-administered medications for this visit. ALLERGIES Allergies Allergen Reactions Nitrofurantoin Other Reaction(s): diarrhea Nitrofurantoin Monohyd/M-Cryst Diarrhea Adhesive Itching and Rash Fluorouracil-Adhesive Bandage Rash Review of Systems Review of Systems Objective BP 124/78 Ht 177.8 cm (5' 10 ) Wt 66.6 kg (146 lb 12.8 oz) BMI 21.06 kg/m Physical Exam Assessment/Plan: Discussed how the patient is feeling on her HRT and any concerns she has at this time. Patient completed menopause survey, largest issues are with libido. Discussed the risks and benefits of testosterone pellet therapy. Discussed increasing the dose of her estrogen patch to .05mg/24 hr to help with her other concerns. Informed the patient that testosterone pellet therapy is not covered by insurance. Patient would like to move forward with Testosterone pellet therapy. Lab work ordered, requisition provided. MD DUKE DOWDIA BROWN, LEE Edwards 12/21/24 0852 documented in this encounter [facility] 11-30-2024 Miscellaneous Notes Pt would like to know if we can increase her estradiol patch dosages. Please advise, thank you! - Laurie Steward MA 11/30/24 10:25 AM ADVISE TO GIVE SOME TIME HAS NOT EVEN BEEN 2 WKKS ON PRESENT DOSE BUT CAN KEEP SYMPTOM CALENDAR MOVE APPT UP TO 6WKS FU INSTEAD OF 2-3MOS LMTCB - Laurie Steward MA 11/30/24 3:21 PM Pt called back and was informed of info below. Pt voiced they understood. Pt scheduled 12/21/24. - Laurie Steward MA 11/30/24 3:28 PM documented in this encounter [facility] 11-30-2024 Telephone encounter Note Pt would like to know if we can increase her estradiol patch dosages. Please advise, thank you! - Laurie Steward MA 11/30/24 10:25 AM [facility] 11-30-2024 Telephone encounter Note ADVISE TO GIVE SOME TIME HAS NOT EVEN BEEN 2 WKKS ON PRESENT DOSE BUT CAN KEEP SYMPTOM CALENDAR MOVE APPT UP TO 6WKS FU INSTEAD OF 2-3MOS [facility] 11-30-2024 Telephone encounter Note LMTCB - Laurie Steward MA 11/30/24 3:21 PM [facility] 11-30-2024 Telephone encounter Note Pt called back and was informed of info below. Pt voiced they understood. Pt scheduled 12/21/24. - Laurie Steward MA 11/30/24 3:28 PM [facility] 11-09-2024 History of Presen t illness Narrative Edna Sultana is a 59 y.o.female. No LMP recorded. Patient is postmenopausal.. She presents for follow up results of EMB/Endosee on 10/26/24 as well as to discuss starting on HRTs. Patient reports increased HR, increased BP, sleep disturbances, anxiety, and low libido. Patient reports she has been experiencing the symptoms for 10 years. Results Discussed: Final Pathologic Diagnosis 1. Endocervical curettings: Negative for dysplasia 2. Endometrial biopsy: Strips and fragments of endometrial lining without atypia Cervical mucosa negative for dysplasia No intact endometrial glands and stroma for microscopic evaluation OB History 2 Para 2 Term 2 [...] 07/03/2018 Performed by Osmany Dunn MD at [facility] 1988 TONSILLECTOMY TUBAL LIGATION FAMILY [...] Dispense Refill ALPRAZolam (XANAX) 0.25 mg tablet TAKE 1/2-1 TABLET BY MOUTH EVERY 8-12 HOURS NEEDED X 12 DAYS cholecalciferol 1,000 units tablet Take 1 tablet [...] for this visit. ALLERGIES Allergies Allergen Reactions Nitrofurantoin Other Reaction(s): diarrhea Nitrofurantoin Monohyd/M-Cryst Diarrhea Adhesive Itching and Rash Fluorouracil-Adhesive Bandage Rash Review of Systems Review of Systems Objective BP 132/88 Ht 177.8 cm (5' 10 ) Wt 68.4 kg (150 lb 12.8 oz) BMI 21.64 kg/m Physical Exam Assessment/Plan: THICKENED ENDOMETRIUM NEGATIVE EMB MENOPAUSAL SYMPTOMS EXTENSIVE HRT COUNSELING GIVEN NA MS AND W DAMARIS AND RISKS BENEFITS ALTERNATIVES INDICATIONS DISCUSSED WITH THE PATIENT AT LENGTH Discussed the EMB/hysteroscopy results, all benign. Reviewed her menopause survey which show sleep disturbances, decreased libido, increased anxiety, and joint pain. Discussed rechecking her thyroid and vitamin D levels. Patient reports she had her thyroid checked recently and there were no abnormalities. TSH 1.47 on 10/2024. Discussed SSRI's to help her vasomotor symptoms, patient reports she has tried those medications before and does not want to go back on them. Discussed hormone labs are not needed for testosterone pellet therapy as she is post menopausal. Estrogen patches and progesterone tablets for HRT were discussed, risks, benefits, indications, and contraindications were discussed. Patient reports she does not want the testosterone pellet therapy and would like to start with the estrogen and progesterone. 0.0375mg Estrogen patch twice weekly. 200mg Progesterone daily at night. Patient informed the medication comes in peanut oil. Discussed taking the Progesterone alone for one week. Refill for estradiol provided. All questions asked by the patient were answered thoroughly. Follow up in 2-3 months. MD DUKE DOWDJOEY BROWN, [facility] 11/09/24 1154 Jane Leis 11/09/24 1200 [place] 11/09/24 1222 documented in this encounter [facility] 10-26-2024 History of Presen t illness Narrative Patient reports she is unable to sleep at night and is having severe anxiety. She reports her blood pressure and heart rate are increased. She would like to try hormone replacement therapy. Will provide menopause survery and informational material regarding HRT. Will discuss options further during her next appointment. MENOPAUSE SURVEY GIVEN REPORTS MOST SEVERE SYMPTOMS ARE IN ASSOCIATION WITH SLEEP AND DECREASED LIBIDO NAMS WHI AND TESTOSTERONE PELLET THERAPY INFO DISTRIBUTED NO CONTRAINDICATIONS TO HORMONE REPLACEMENT THERAPY IDENTIFIED TODAY WE WILL WAIT FOR RESULTS OF EMB Endometrial Biopsy/ Endosee Procedure Note Indications: Thickened Endometrium Procedure Details The risks (including infection, bleeding, pain, and uterine perforation) and benefits of the procedure were explained to the patient. Verbal and written informed consent was obtained. Patient took Motrin and Xanax prior to her appointment. The cervix prepped with betadine. A allis clamp was applied to the anterior lip of the cervix for stabilization. A pipelle passed without difficulty to sample the endometrium X 3 W SCANT SPECIMEN RETRIEVED The sample was sent for pathologic examination. The patient tolerated the procedure well. ENDOSEE HYSTEROSCOPY IS PERFORMED IN USUAL STANDARD FASHION WITHOUT DIFFICULTY BILATERAL TUBAL OSTIA ARE VISUALIZED AND HYSTEROSCOPY IS ADEQUATE. NO SUSPICIOUS LESIONS ARE VISUALIZED ATROPHIC ENDOMETRIUM IS NOTED. NO POLYPS VISUALIZED PATIENT TOLERATED PROCEDURE WELL SILVER NITRATE IS APPLIED TO THE ANTERIOR LIP OF THE CERVIX FOR HEMOSTASIS ALL INSTRUMENTS REMOVED FROM THE VAGINA Condition: Stable Complications: None Plan: The patient was advised to call for any fever or for prolonged or severe pain or bleeding. She was advised to use OTC ibuprofen as needed for mild to moderate pain. She was advised to avoid vaginal intercourse for 48 hours or until the bleeding has completely stopped. Follow up: To discuss results of biopsy in 1-2 weeks. [place] 10/26/24 1523 [place] 10/26/24 1530 KATIA WHITT MD documented in this encounter [facility] 10-20-2024 Evaluation note Authored October 20, 2024 1:2 9pm The above note written by __ _Prabhjot Tafoya____ acting as human recorder, note dictated by Dr. Layne .I performed the above HPI, ROS, and Examination. I formulated and dictated the treatment plan and was present for entire encounter. Yannick Velázquez D.O. [facility] Work Phone: [phone]) 781-876303-28-2025 Miscellaneous Notes* Telephone Encounter - Laurie Steward MA - 10/01/2024 8:38 AM EDT Pt called asking about HRT, would like more info on it. She has an appt for INMANO on 10/26/24. Please advise, thank you! - Laurie Steward MA 10/01/24 8:39 AM * Telephone Encounter - Katia Whitt MD - 10/01/2024 8:38 AM EDT PT SHOULD COMPLETE HER ABNORMAL BLEEDING WORKUP 1ST AND THEN WE WOULD DISCUSS HER HRT OPTIONS AFTERHER BLEEDING WORKUP IS COMPLETED AND WITH HER RESULTS DISCUSSION * Telephone Encounter - Laurie Steward MA - 10/01/2024 8:38 AM EDT Called pt and was informed of info below. Pt confirmed she understood. - Laurie Steward MA 10/04/24 8:11 AM [facility] Telephone encounter Note* Telephone Encounter - Laurie Steward MA - 10/01/2024 8:38 AM EDT Pt called asking about HRT, would like more info on it. She has an appt for EMB- HYSTO on 10/26/24. Please advise, thank you! - Laurie Steward MA 10/01/24 8:[address] [id number] Telephone encounter Note* Telephone Encounter - Katia Whitt MD - 10/01/2024 8:38 AM EDT PT SHOULD COMPLETE HER ABNORMAL BLEEDING WORKUP 1ST AND THEN WE WOULD DISCUSS HER HRT OPTIONS AFTERHER BLEEDING WORKUP IS COMPLETED AND WITH HER RESULTS DISCUSSION [facility] Work Phone: 1(849) 203-616503-28-2025 Telephone encounter Note* Telephone Encounter - Laurie Steward MA - 10/01/2024 8:38 AM EDT Called pt and was informed of info below. Pt confirmed she understood. - Laurie Steward MA 10/04/24 8:11 AM [facility] [employer] [id number] Evaluation note* Author Yannick Velázquez [facility] Authored September 29, 2024 10: 02am The above note written by __ _Prabhjot Tafoya____ acting as human recorder, note dictated by Dr. Layne .I performed the above HPI, ROS, and Examination. I formulated and dictated the treatment plan and was present for entire encounter. Yannick Velázquez D.O. [facility] Work Phone: 1(400) 744-801502-25-2025 History of Present illness Narrative* Katia Whitt MD - 08/31/2024 3:45 PM EST Edna Sultana is a 58 y.o.female. No LMP recorded. Patient is postmenopausal.. She presents for follow up of vaginal lesion. No vaginal bleeding or vaginal discharge. Patient believes the lesion is still there but has not gotten any larger. NO PMB Results Discussed: 06/17/2024 Ultrasound FINDINGS: The uterus measures 7.2 x 3.7 [...] Small uterine fibroids. Otherwise, unremarkable pelvic echo.. OB History 2 Para 2 Term 2 [...] 07/03/2018 Performed by Osmany Dunn MD at [facility] 1988 TONSILLECTOMY TUBAL LIGATION FAMILY [...] by mouth Three times daily as needed. (Patient not taking: Reported on 06/23/2024) cholecalciferol 1,000 units tablet Take 1 tablet [...] Review of Systems Review of Systems Objective BP 136/84 Ht 179.1 cm (5' 10.5 ) Wt 72.7 kg (160 lb 3.2 oz) BMI 22.66 kg/m Physical Exam Physical Exam GEN AAOX3, NAD HEENT UNREMARKABLE HEART RRR LUNGS CTAB ABD BENIGN, OBESE, NTND PELVIS: EG APPROP FOR AGE, NO LESIONS VAGINA APPROP FOR AGE, 1CM LESION TO POSTERIOR VAGINAL WALL AT 7O'CLOCK, MOBILE, WELL CIRCUMSCRIBED, UNDER MUSCOSAL SURFACE, SMOOTH, WELL APPEARING, NOT TENDER RECTAL DEFERRED EXTREM NO CCE, NO CALF TENDERNESS Assessment/Plan: VAGINAL LESION-STABLE, APPEARS BENIGN THICKENED ENDOMETRIUM--RECOMMEND EMB HYSTEROSCOPY Discussed ultrasound results, uterus lining on the upper limit of normal. Discussed no masses or lesions noted on the US. Discussed without being able to visualize the lesion there is little chance of biopsy. Discussed possible EMB/hysteroscopy due to her being on the upper side of normal limits. All risks/benefits, indications, and surgical techniques were discussed. Advised to take Motrin priorto the EMB/hysteroscopy. All questions asked by the patient were answered thoroughly. Patient will follow up for EMB/hysteroscopy. MD EUGENIO DOWD CMA Emma Leis 08/31/24 1559 [facility] History of Present illness Narrative* Reza Gorman MD - 08/04/2024 3:20 PM EST Subjective Patient ID: Edna Sultana is a 58 y.o. female who presents for Thyroid Nodule (6 month ultrasound TBH) US shows a 7mm LT nodule compared to 20mm 6 mo ago. Looking back at previous US, overall size of gland little changed. Family History Problem Relation Name Age of Onset Thyroid disease Mother Poppy Hypertension Mother Poppy Dementia Mother Poppy Anxiety disorder Mother Poppy Cancer Father Hypertension Father Diabetes Maternal Grandmother Cancer Maternal Grandmother Cancer Maternal Grandfather Kobi Depression Maternal Grandfather Kobi Pernicious anemia Paternal Grandmother Cancer Paternal Grandfather Active Ambulatory Problems Diagnosis Date Noted Thyroid cyst (CMS/HCC) 01/09/2023 Anxiety 01/09/2023 Nontoxic multinodular goiter (CMS/HCC) 07/30/2023 Resolved Ambulatory Problems Diagnosis Date Noted Cystocele with prolapse 09/06/2020 Dysuria 09/06/2020 Incomplete emptying of bladder 01/09/2023 Microscopic hematuria 01/09/2023 Nocturia 09/06/2020 Right flank pain 01/09/2023 Right sided abdominal pain 01/09/2023 Urinary urgency 01/09/2023 Past Medical History: Diagnosis Date Anemia History of panic attacks Insomnia Numbness Spinal stenosis Past Surgical History: Procedure Laterality Date SECTION, CLASSIC [address] Dunn CYSTOSCOPY 02/17/2020 with urethral dilation, Dr. Duane REYNA BUNIONECTOMY Bilateral 1991 TONSILLECTOMY TUBAL LIGATION Allergies Allergen Reactions Nitrofurantoin Other Reaction(s): diarrhea Wound Dressing Adhesive Rash Current Outpatient Medications on File Prior to Visit Medication Sig Dispense Refill ALPRAZolam (Xanax) 0.25 MG tablet Take 0.5 tablets by mouth 3 (three) times a day as needed for anxiety. b complex-folic acid tablet Take 1 tablet by mouth in the morning. magnesium oxide (Mag-Ox) 400 mg tablet Take 400 mg by mouth in the morning. [DISCONTINUED] magnesium oxide (Mag-Ox) 400 MG tablet Take 400 mg by mouth in the morning. [DISCONTINUED] Multiple Vitamin (multivitamin) tablet Take 1 tablet by mouth in the morning. No current facility-administered medications on file prior to visit. Objective Last Recorded Vitals Vitals: 08/04/24 1517 BP: 141/85 Pulse: 80 ENT Physical Exam Constitutional Appearance: patient appears well-developed, well-nourished and well-groomed, Communication/Voice: communication appropriate for developmental age; vocal quality normal; Assessment/Plan Diagnoses and all orders for this visit: Nontoxic multinodular goiter (CMS/HCC) I doubt there has been sig change. Continue semiannual US.b documented in [facility] encounterGeneral [facility] [id number] History of Present illness Narrative* Suzanna Gary RT(R) - 06/10/2024 11:20 AM EST Radiology Service Progress Note DATE OF SERVICE: [...] PATIENT PRESENTS WITH AN IMPLANTABLE OR ATTACHED MANNEQUIN COLORING ARTIST: No ALLERGIES: Reviewed and unchanged CONTRAST ALLERGY: NO. EXAM: MRI - CONTRAST TYPE: GROUP II PERIPHERAL IV DATA: Ambulatory: A peripheral IV was started in the Right antecubital site with a Angio cath: 24 gauge. RADIOLOGY DEPARTMENT: MR; Exam(s) Completed: Head: Routine Brain SIGNATURE: RT Galdino(R) PATIENT NAME: Edna Sultana DATE: June 10, 2024 TIME: 10:13 AM documented in this encounterSalem [facility] Center11-26-2024 History of Present illness Narrative* Katia Whitt MD - 06/01/2024 9:00 AM EST Edna Sultana is a 58 y.o.female. No LMP recorded. Patient is postmenopausal.. She presents for evaluation of vaginal lesion. REFERRED TO THE PHYSICIAN SCHEDULE FROM INDUSTRIAL PSYCHOLOGIST SCHEDULE PATIENT PREFERS REMOVAL OF LESION. SHE [...] 07/03/2018 Performed by Osmany Dunn MD at [facility] 1988 TONSILLECTOMY TUBAL LIGATION FAMILY [...] pt states she is agreeable. MD EUGENIO DOWD CMA Sari Cameron 06/01/24 0939 documented in this encounterMemorial Health System11-25-2024 History of Present illness Narrative* Ivy Garcia, ARI - 05/31/2024 1:40 PM EST Images from the original note were not [...] during the day and could doze off. Shestates that she thinks she had 1 sleep onset REM period during her nap but she is unsure. She was not diagnosed with narcolepsy. 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 For short period of timeshe was placed on Ritalin but she did [...] helping. She was giving herself weekly B12 injectionsuntil about 3 months ago and her level was significantly high. She would like this rechecked and wewill add in the other B vitamins and lab work to look for cause of calf fasciculations and RLS thatshe has. These are rather bothersome to her. . She does have chronic back pain. Sounds like she has went to PT multiple times for this with the last being in July 28, 2022. She has never had an MRI of her lumbar spine. I will obtain an MRI of the lumbar spine to assess for a structural lesion including degenerative lumbar spine disease whichmay be contributing to the patient's symptoms. She declines muscle relaxer. She does not like to take medications unless absolutely needed. She does have some bladder leakage/incontinence that is chronic and likely due to her age. . . . Plan MRI lumbar spine at [facility] Order labs for RLS and fasciculations Monitor BP as she states it is only high in the office Reviewed PSG to assess for sleep disturbance such as PLMD, poor sleep cycling and obstructive sleepapnea MSLT not completed She declines taking the [...] to clinic: 2-3 months documented in this encounterGeneral Leonard Wood [facility] Community [id number] History of Present illness Narrative* Raven Hernández, GOLF BALL INSPECTOR-BUS ASSISTANT - 05/18/2024 3:15 PM EST Edna Sultana is a pleasant 58 y.o. 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 She is postmenopausal. Hysterectomy: no Patient reports hx a lesion in her vagina that is increasing in size. She has hx genital / rectal wart removal in the past. She states the lesion is not painful but has gotten bigger in the past 6 months. She is sexually active. Denies painful intercourse or pelvic pain. 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 All questions answered. RTO for annual light rail signal technician exam and / or PRN. RTO with physician to evaluate vaginal lesions. PIPPA Witt APRN-CNP 05/18/24 1633 documented in this encounterMemorial Health System10-15-2024 NoteGeneral Surgery Office/Clinic Note Chief Complaint consultation for lipoma HPI Staff 58 year old female presents on consultation from Dr. Velázquez for lipoma of left abdomen. Reports noting mass near the underside of left rib cage approximately 1 year ago. Denies change in size since first noted. Denies soreness or tenderness. Abdominal US completed 12/2022 at [facility]. History of Present Illness 58 yo female referred for possible lipoma left abdominal wall; abdominal operations significant forc-section and tubal ligation; patient noticed slight lump in area when lying flat; US at [facility] over 1 year ago [...] swallowing difficulties, no hearing loss, no ear infection(s),no nose bleeds. Cardiovascular: normal blood pressure, no [...] visualized on ct scan; recommend observation for now;if enlarges or becomes symptomatic, will reevaluate; call [...] Heart disease: Brother. Hypertension: Mother. Multiple myeloma: Father.[facility] Charles HospitalComment on above:Result Comment: Electronically Signed By: JAMIN LAZO, Florentin Lozada\\Date and Time Signed: 04/20/24 15:21 [id number] History of Present illness Narrative* Suzanne Gee, DO - 04/15/2024 11:00 AM EDT Images from the original note were not included. Chief Complaint Patient presents with Sleeping Problem Subjective Edna Sultana, 58 y.o., female HPI The patient states that she had a sleep study at [facility] 27 years ago. She was very tired [...] 6-7 times. She does not nap typically. Shedoes not doze of driving. She can struggle [...] during the day and could doze off. Shestates that she thinks she had 1 sleep onset REM period during her nap but she is unsure. She was not diagnosed with narcolepsy. 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 For short period of timeshe was placed on Ritalin but she did [...] sleep talking and it sounds like catathrenia. Sheneeds a PSG and MSLT to assess further [...] to clinic: 2 months documented in this encounterGeneral Leonard Wood Army Community [id number] Hospital Discharge instructionsAmbulatory Orders* Referral to General Surgery Time Frame: 03/24/24, Location: [facility] Work Phone: [phone]) 463-332609-17-2024 NoteHNO ID: [id number] Author: JANNA GILMAN MD Service: ? Author [...] which included preparing to see the patient, [id number] patient care, completing clinical documentation, obtaining and/or reviewing separately obtained history, performing a medically appropriate examination, counseling and educating the patient/family/caregiver, and ordering medications, tests, or procedures. Janna Gilman MD cc: Abiodun Castano [address] [facility] [address] Edna Sultana [id number] [address] [facility] [address]zllxywtTr[facility]09-17-[facility] History of Present illness Narrative* Janna Gilman MD - 03/23/2024 4:19 PM EDT This 58-year-old woman is seen in neurological [...] of daily living. She has had tingling sensationbelow the knees on an off-and-on basis. For the last year or so the patient has had bilateral calf fasciculations and she describes charley horse cramps especially in bed, especially in the calves, for the last 1-2 years. At some point a vitamin B12 level was low although the intrinsic factor methyl malonic acid levels were okay. High-dose vitamin B12 [...] no fasciculations identified in muscles of the armsand legs. Occasional momentary posterior thigh cramps elicited [...] which included preparing to see the patient, [id number] patient care, completing clinical documentation, obtaining and/or reviewing separately obtained history, performing a medically appropriate examination, counseling and educating the pat ient/family/caregiver, and ordering medications, tests, or procedures. Janna Gilman MD cc: Abiodun Castano [id number] [facility] [address] Edna Tuckerright [id number] [address] [facility] [address] documented in this encounterSalem Regional Medical Center06-07-2024 NoteHNO ID: [id number] Author: ABIODUN CASTANO, DO Service: ? Author [...] that at this mabel (more content not included)...[facility]06-07-2024 History of Present illness Narrative* Emir Abiodun Shani, - 12/12/2023 12:16 PM EDT Follow-up Visit [facility] December 12, 2023 CC: Lumbar spine pain left buttock pain and bilateral lower limb vermiculation SUBJECTIVE: Patient returns today to discuss the results of her MRI imaging. At her prior visit was complainingof similar symptoms. Has continued to deal with twitching and sensation of bugs crawling on her legs since this time. On exam did have presence of fasciculations in the bilateral calf muscles. Since this time she reports she has begun to notice extending sensation of twitching and crawling now alsoto the distal medial thighs she denies any lower limb weakness. In the past has undergone 2 EMGs without any evidence of neuropathy or radiculopathy at outside facilities. Patient also has been foundto be suffering from true B12 deficiency and [...] or dropping things, denies clumsiness of feet, trippingor falling. Denies any constitutional or myelopathic symptomatology. [...] hamstring. 1+ right medial hamstring and absent rightAchilles normal left Achilles Strength intact in bilateral [...] has visible fasciculations on exam. In light ofthe lack of any significant pain at the [...] in the lower limbs as well as fasciculationson exam although prior EMGs performed at outside facilities did not seem to suggest even presence of fasciculations I advised patient that in light of our ability to see them that I would recommend ev aluation with one of our neuromuscular specialist. Advised [...] sense that escaped review. documented in this encounterSalem Regional Medical Center06-04-2024 History of Present illness Narrative* Suzanna Gary, RT(R) - 12/09/2023 9:20 AM EDT Radiology Service Progress Note DATE OF SERVICE: [...] PATIENT PRESENTS WITH AN IMPLANTABLE OR ATTACHED MANNEQUIN COLORING ARTIST: No ALLERGIES: Reviewed and unchanged CONTRAST ALLERGY: [...] 2023 TIME: 10:26 AM documented in this encounterSalem Regional Medical Center06-04-2024 NoteHNO ID: [id number] Author: SUZANNA GARY RT (R) Service: ? Author Type: Technologist Type: Progress [...] PATIENT PRESENTS WITH AN IMPLANTABLE OR ATTACHED MANNEQUIN COLORING ARTIST: No ALLERGIES: Reviewed and unchanged CONTRAST ALLERGY: NO. EXAM: MRI - CONTRAST TYPE: GROUP II PERIPHERAL IV DATA: Ambulatory: A peripheral IV was started in the Right antecubital site with a Angio cath: 24 gauge. RADIOLOGY DEPARTMENT: MR; Exam(s) Completed: Head: Multiple Sclerosis Spine: Cervical spine and Thoracic spine SIGNATURE: RT Galdino(Loli) PATIENT NAME: Edna Sultana DATE: December 09, 2023 TIME: 10:26 [facility]05-06-2024 Evaluation note* Author Yannick Velázquez [facility] Authored November 10, 2023 11:44a m The above note written by __ _Prabhjot Tafoya____ acting as human recorder, note dictated by _Gisel .I performed the above HPI, ROS, and Examination. I formulated and dictated the treatment plan and was present for entire encounter. Yannick Velázquez D.O. [facility] Work Phone: 1(940) 162-974405-02-2024 Telephone encounter Note* Telephone Encounter - Kimberly House MA - 11/06/2023 9:08 AM EDT Scheduled 3 mri's and follow up appointment as requested by Dr. Castano. [facility]05-02-2024 Miscellaneous Notes* Telephone Encounter - Kimberly House MA - 11/06/2023 9:08 AM EDT Scheduled 3 mri's and follow up appointment as requested by Dr. Castano. * Telephone Encounter - Kimberly House MA - 11/06/2023 7:26 AM EDT end documented in this encounterSalem Regional Medical Center05-02-2024 Telephone encounter Note * Telephone Encounter - Kimberly House MA - 11/06/2023 7:26 AM EDT end [facility]05-01-[facility] Telephone encounter Note* Telephone Encounter [...] best recommendation. I willsend the patient a MyChart message also so she is aware. Devin please cancel her other MRIs and I have placed new orders. Abiodun Castano DO [facility] Work Phone: 1(750) 148-116405-01-2024 Miscellaneous Notes* Telephone Encounter - Abiodun Castano [...] best recommendation. I willsend the patient a [employer] message also so she is aware. Devin please cancel her other MRIs and I have placed new orders. Abiodun Castano DO documented in this encounterSalem Regional Medical Center04-23-2024 Telephone encounter Note * Telephone Encounter - Kimberly House MA - 10/28/2023 9:19 AM EDT Left message for patient to return call to schedule mri's and a follow up appointment. [facility]04-23-2024 Miscellaneous Notes* Telephone Encounter - Kimberly House MA - 10/28/2023 9:19 AM EDT Left message for patient to return call to schedule mri's and a follow up appointment. documented in this encounterSalem Regional Medical Center04-18-2024 Miscellaneous Notes* Telephone Encounter - Frannie Hernandez RN - 10/23/2023 11:20 AM EDT KAYLEEN 10/21/23- unsigned note Additional info patient wanted to share documented in this encounterSalem Regional Medical Center04-16-2024 Instructions* Patient Instructions* Abiodun Castano [...] 2023 TIME: 8:41 AM documented in this encounterSalem Regional Medical Center04-16-2024 NoteHNO ID: [id number] Author: ABIODUN CASTANO DO Service: ? 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 Layne .I performed the above HPI, ROS, and Examination. I formulated and dictated the treatment plan and was present for entire encounter. Yannick Velázquez D.O. [facility] Work Phone: [phone]) 392-907712-12-2023 Evaluation note* Encounter Date Diagnosis Assessment Notes [...] 5 MG tablets at a pharmacy in [place] to help her wean off the medication. [...] She voices that she is seeing a rocket assembly operator on 06-19-23 and has an MRI of the right foot. She thinks she may have a neuroma of the right foot because she has a ball on the bottom of her right foot. Jun, Other 10:05 AM - 10:1 7 AM [facility] Other 11-21-2023 Note Yannick Velázquez DO [address], [place] [address] Re: Edna Sultana Date of Visit: 05/27/2023 Dear Yannick Velázquez DO, Let me know if you have any questions or concerns. Sincerely, MARTIN Moreno MD Providers: The following document(s) were included in the letter: May 27, 2023 11:20:24 EST - (05/27/2023) Neurosurgery Office Visit Note [facility]11-16-2023 Evaluation note* Encounter Date Diagnosis Assessment Notes Treatment Notes Treatment Clinical Notes May, Anxiety (ICD-10 - F41.9) When she gets home from work she is restless, does not know what to do with herself. She does not want to cooker tender. She did increase her Zoloft to 1 [...] a second opinion with a specialist in [place]. She has pressure in her low back and feels as if there is something going on in her low back. May, Tremor (ICD-10 - R25.1) She voices that both of her hands have been shaking. May, Hypocalcemia (ICD-10 - E83.51) I am going to order lab work to rule out any issue with her parathyroid. May, Other superintendent terminal (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 therapy (ICD-10 - Z79.899) May, Weight gain (ICD-10 - R63.5) She has gained six pounds since March (2022). May, Other She has an appointment with Avery her homeopathic doctor who always tells her that her Cortisol level is a mess . [facility] Other 10-24-2023 Evaluation note* Encounter Date Diagnosis Assessment Notes Treatment Notes Treatment Clinical Notes Apr, Anxiety (ICD-10 - F41.9) [facility] Other 2023 Evaluation note* Encounter Date Diagnosis Assessment Notes Treatment Notes Treatment Clinical Notes Apr, Other superintendent terminal (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 therapy (ICD-10 - Z79.899) Apr, Vitamin B12 deficiency (ICD-10 - E53.8) Apr, Muscle cramp (ICD-10 - R25.2) Apr, Paresthesia (ICD-10 - R20.2) Apr, Vitamin D deficiency (ICD-10 - E55.9) Apr, Fatigue (ICD-10 - R53.83) [facility] Other 2023 Evaluation note* Encounter Date Diagnosis Assessment Notes Treatment Notes Treatment Clinical Notes Apr, Vitamin B12 deficiency (ICD-10 - E53.8) Apr, Hypokalemia (ICD-10 - E87.6) [facility] Other 09-27-2023 Evaluation note* Encounter Date Diagnosis Assessment Notes Treatment Notes Treatment Clinical Notes Mar, Anxiety (ICD-10 - F41.9) [facility] Other 09-13-2023 Evaluation note* Encounter Date Diagnosis Assessment Notes Treatment Notes Treatment Clinical Notes Mar, Lumbar pain (ICD-10 - M54.50) [facility] Other 09-13-2023 Evaluation note* Encounter Date Diagnosis [...] She is going to be seeing Dr. Martinze this afternoon. She voices that her back [...] not want to use an inversion table. [facility] Other 08-09-2023 Evaluation note* Encounter Date Diagnosis Assessment Notes Treatment Notes Treatment Clinical Notes Feb, Lumbar pain (ICD-10 - M54.50) [facility] Other 08-02-2023 Evaluation note* Encounter Date Diagnosis Assessment Notes Treatment Notes Treatment Clinical Notes Feb, Lumbar pain (ICD-10 - M54.50) [facility] Other 07-18-2023 Evaluation note* Encounter Date Diagnosis [...] understanding and is agreeable to treatment plan. [facility] Other 07-05-2023 Evaluation note* Encounter Date Diagnosis Assessment Notes Treatment Notes Treatment Clinical Notes Jan, Thyroid nodule (ICD-10 - E04.1) [facility] Other 06-30-2023 Evaluation note* Encounter Date Diagnosis Assessment Notes Treatment Notes Treatment Clinical Notes Dec, Thyroid nodule (ICD-10 - E04.1) [facility] Other 06-16-2023 Evaluation note* Encounter Date Diagnosis [...] done when it comes to her town. [facility] Other 03-13-2023 Evaluation note* Encounter Date Diagnosis Assessment Notes Treatment Notes Treatment Clinical Notes Sep, Anxiety (ICD-10 - F41.9) [facility] Other 03-13-2023 Evaluation note* Encounter Date Diagnosis [...] continue with it today. She saw a uro/food bagging machine operator who referred her to physical therapy for pelvic floor therapy. They are going to see if Dr. Martinez feels her issue may be coming from her back. [facility] Other 02-23-2023 Evaluation note* Encounter Date Diagnosis Assessment Notes Treatment Notes Treatment Clinical Notes Aug, Lumbar degenerative disc disease (ICD-10 - M51.36) [facility] Other 02-01-2023 Evaluation note* Encounter Date Diagnosis Assessment Notes Treatment Notes Treatment Clinical Notes Aug, Spinal stenosis (ICD-10 - M48.00) Aug, DDD (degenerative disc disease), lumbar (ICD-10 - M51.36) Aug, Lumbar pain (ICD-10 - M54.50) [facility] Other 01-13-2023 Evaluation note* Encounter Date Diagnosis [...] symptoms. She did see a surgeon in [place] and he told her that she was [...] noticed it turn flaky. She asked her garment sewer hand who told her she didn't know what [...] (ICD-10 - Z80.41) She will see her food bagging machine operator next week to discuss a hysterectomy. She would like to have a CA-125 test done. Her grandmother had ovarian cancer. She voices that she would request a total hysterectomy if she is going to have a hysterectomy. Jul, Other group home (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 therapy (ICD-10 - Z79.899) Jul, Other Sometimes if sh e is running and stops she will get pain in both her adrenal glands that is so painful it will cause her to double over in pain. This has only happened a few times. She does feel this when she bends backwards on exam today. [facility] Other 12-28-2022 Evaluation note* Encounter Date Diagnosis Assessment Notes Treatment Notes Treatment Clinical Notes Jun, Lumbar pain (ICD-10 - M54.50) Jun, Lumbar degenerative disc disease (ICD-10 - M51.36) She is not having any radicular symptoms and no urinary tract symptoms. She feels that this is may be related to constipation and would like an order sent to [facility] for an x-ray to see how much stool is present. She is going to see Marty Pugh her physical therapist in [place] next week and hopefully this will help. She has responded well in the past to Medrol Dosepak and would like to have this available to take if desired. side effects/risks/benef its of medication reviewed. Jun, Constipation (ICD-10 - K59.00) Jun, Other 09:15 AM - 09:22 AM [facility] Other 12-19-2022 Evaluation note* Encounter Date Diagnosis [...] the medication. 2:50 PM - 2:58 PM [facility] Other 11-03-2022 Evaluation note* Encounter Date Diagnosis Assessment Notes Treatment Notes Treatment Clinical Notes May, Cystitis (ICD-10 - N30.90) [facility] Other 10-05-2022 Evaluation note* Encounter Date Diagnosis [...] likely fighting something viral a month ago. [facility] Other 09-20-2022 Evaluation note* Encounter Date Diagnosis [...] will return to see the neurosurgeon in [place] for her back. Mar, Other She voices that she had lab drawn through her employer to include cholesterol, she will provide the office with a copy of her results. 8:26 AM - 8:40 AM [facility] Other 08-12-2022 Evaluation note* Encounter Date Diagnosis Assessment Notes Treatment Notes Treatment Clinical Notes Feb, Anxiety (ICD-10 - F41.9) [facility] Other 07-25-2022 Evaluation note* Encounter Date Diagnosis [...] we will help you get into specialist. [facility] Other 07-08-2022 NotePROCEDURE: XR KNEE LT 4V [...] Electronically authenticated by: JENNIFER NICOLAS Date: 2022-01-11 12:09[facility]07-08-2022 Evaluation note* Encounter Date Diagnosis Assessment Notes Treatment Notes Treatment Clinical Notes Jan, Knee pain, left (ICD-10 - M25.562) [facility] Other 07-06-2022 Evaluation note* Encounter Date Diagnosis [...] and is not winded when she runs. [facility] Other 06-07-2022 Evaluation note* Encounter Date Diagnosis Assessment Notes Treatment Notes Treatment Clinical Notes Dec, Anxiety (ICD-10 - F41.9) [facility] Other 06-07-2022 Evaluation note* Encounter Date Diagnosis [...] ts of medication were reviewed. Dec, Other superintendent terminal (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 therapy (ICD-10 - Z79.899) I [...] copy of this once it is done. [facility] Other 03-07-2022 Evaluation note* Encounter Date Diagnosis [...] She is considering seeing a pharmacist from [facility] to discuss a different version of Cyanocobalamin that does not contain cyanide, I did advise her that if she does this they can send us a prescription request to sign. Sep, Other She voices that her hair is falling out from having had COVID-19 but it seems to be slowing down. [facility] Other 12-06-2021 Evaluation note* Encounter Date Diagnosis [...] drinking alot of water and began drinking Chadron artichoke and feels her symptoms resolved. She [...] to continue with what she is doing. [facility] Other Evaluation + Plan note No data available for this section [facility] [place] Evaluation noteNo InformationNortBryn Mawr [facility] Other Evaluation noteNo assessment information available [facility] Work Phone: Evaluation note* Diagnosis Lumbar radiculopathy- Primary Thoracic or [...] nervous system, unspecified documented in this encounter [facility]* Diagnosis Fasciculation- Primary Abnormal involuntary movements Hyperreflexia Abnormal reflex Degeneration of lumbar or lumbosacral intervertebral disc [facility] Diagnosis Hyperreflexia Abnormal reflex Syringomyelia and syringobulbia (HCC) Syringomyelia and syringobulbia [facility] Diagnosis Hyperreflexia Abnormal reflex Demyelinating disease of central nervous system (HCC) Demyelinating disease of central nervous system, unspecified [facility] Diagnosis Hyperreflexia Abnormal reflex Spinal stenosis of cervical region Spinal stenosis in cervical region Demyelinating disease of central nervous system (HCC) Demyelinating disease of central nervous system, unspecified [facility] Diagnosis Disturbance of skin sensation- Primary Fasciculation Abnormal involuntary movements Hyperreflexia Abnormal reflex [facility] Diagnosis Onset Date Resolution Status Abnormal finding on MRI of brain acute Anxiety acute Lipoma acute Twitching acute Vitamin B12 deficiency acute [facility] Work Phone: Evaluation note* Diagnosis AB (obstructive sleep apnea)- Primary Obstructive sleep apnea (adult) (pediatric) Hypersomnia Hypersomnia, unspecified Sleep disturbance Unspecified sleep disturbance Catathrenia Sleep talking Other dysfunctions of sleep stages or arousal from sleep [facility] Brain cyst- Primary Cerebral cysts [facility] Diagnosis Restless legs- Primary Restless legs syndrome (RLS) Benign fasciculation-cramp syndrome Unspecified myoneural disorders Hypersomnia Hypersomnia, unspecified PLMD (periodic limb movement disorder) Periodic limb movement disorder Chronic low back pain, unspecified back pain laterality, unspecified whether sciatica present Sleep disturbance Unspecified sleep disturbance documented [facility]* Diagnosis Brain cyst Cerebral cysts [facility]* Diagnosis Nontoxic multinodular goiter (CMS/HCC)- Primary Nontoxic multinodular goiter documented [facility]* Diagnosis Heterogeneously dense tissue of both breasts on mammography- Primary [facility] Diagnosis PMB (postmenopausal bleeding)- Primary Postmenopausal bleeding Vaginal atrophy Postmenopausal atrophic vaginitis [facility] Diagnosis Well woman exam with routine gynecological exam- Primary Routine gynecological examination Urinary urgency Urgency of urination Screening for osteoporosis Special screening for osteoporosis Postmenopausal Asymptomatic postmenopausal status (age-related) (natural) Hx of osteopenia Vaginal atrophy Postmenopausal atrophic vaginitis [facility] Diagnosis Vaginal lesion- Primary Other specified noninflammatory disorder of vagina [facility] Diagnosis Vaginal lesion- Primary Other specified noninflammatory disorder of vagina Thickened endometrium Nonspecific (abnormal) findings on radiological and other examination of genitourinary organs [facility] Diagnosis Onset Date Resolution Status Admit Date Abnormal finding on MRI of brain acu te September 29, 2024 8:59am Anxiety acute September 29 8:59am Degenerative disc disease, lumbar acute September 29, 2024 8:59am History of cystitis acute September 29, 2024 8:59am Magnesium deficiency acute [facility] 2024 8:59am Periodic limb movement disorder acut e September 29, 2024 8:59am Pruritus acute September 29 8:59am Rhinorrhea acute September 29 8:59am Twitching acute September 29 8:59am Vitamin B12 deficiency acute [facility] 2024 8:59am Vitamin D deficiency acute [facility] 2024 8:59am [facility] Work Phone: Evaluation note* Diagnosis Postmenopausal- Primary Asymptomatic postmenopausal status (age-related) (natural) DUB (dysfunctional uterine bleeding) [N93.8] Other disorder of menstruation and other abnormal bleeding from female genital tract Thickened endometrium Nonspecific (abnormal) findings on radiological and other examination of genitourinary organs [facility] Diagnosis Thickened endometrium- Primary Nonspecific (abnormal) findings on radiological and other examination of genitourinary organs Menopausal symptom Vaginal atrophy Postmenopausal atrophic vaginitis [facility] Diagnosis Encounter for screening for cardiovascular disorders documented in this encounter [facility] Work Phone: Evaluation note* Diagnosis Menopausal symptom- Primary [facility]* Type [...] 2003 200 6 Hospitalization History see above [facility] Other Hiswmz[facility] general Narrative - Reported* Type Description Date [...] 2003 200 6 Hospitalization History see above [facility] Other History general Narrative - Reported* Type Description Date Medical History 02-14; Dr. Hi Medical History 02-14; Mammogram Medical History Colonoscopy; Dr. Iker gacria (due to blood in stool) 2002 Medical [...] 2003 200 6 Hospitalization History see above [facility] Other History general Narrative - Reported* Type [...] repeat in 2027 2017 Hospitalization History childbirth 2004 200 6 Hospitalization History see above [facility] Other Hospital Discharge instructions No data available for this section [place] [employer] InstructionsNot on filedocumented in this encounter [facility] [employer] SystemInstructions* Attachments The following attachments cannot be sent through Care Everywhere. * Calcium and vitamin D for bone health (Qatari) documented in this encounterProCumulus Networks SystemInstructionsNot on file documented in this encounterProCumulus Networks SystemInstructionsNot on file documented in this encounterProAternity Health SystemInstructionsNot on file documented in this encounterProAternity Health SystemInstructionsNot on file documented in this encounterProCumulus Networks SystemInstructionsNot on file documented in this encounterProCumulus Networks SystemInstructionsNot on file documented in this encounterProCumulus Networks SystemInstructionsNot on file documented in this encounterProEast Liverpool City HospitalPaper Battery Company SystemProgress note No data available for this section [place] [employer] Reason for referral (narrative)* Diagnostic Procedure Only (Routine) - Closed Specialty Diagnoses / Procedures Referred By Ryan alejandro Referred To Contact MR IMAGING Diagnoses Hyperreflexia Syringomyelia and syringobulbia (HCC) Procedures MRI BRAIN WO/W IVCON MRI BRAIN BRAIN STEM W/O W/[place] [address] [place] [address] [place] [address] Referral ID Status Reason Start Date Expiration Date V isits Requested Visits Authorized [id number] Closed Auto-Generate d Referral 11/06/2023 07/06/2024 1 1 [facility] for referral (narrative)* Diagnostic Procedure Only (Routine) - Closed Specialty Diagnoses / Procedures Referred By Contalex alejandro Referred To Contact MR IMAGING Diagnoses Hyperreflexia Demyelinating disease of central nervous system (HCC) Procedures MRI THORACIC SPINE WO/W IVCON MRI SPINAL CANAL THORACIC W/O & [place] [address] [place] [address] [place] [address] Referral ID Status Reason Start Date Expiration Date V isits Requested Visits Authorized [id number] Closed Auto-Generate d Referral 11/06/2023 07/06/2024 1 1 [facility] for referral (narrative)* Diagnostic Procedure Only (Routine) - Closed Specialty Diagnoses / Procedures Referred By Contac t Referred To Contact MR IMAGING Diagnoses Hyperreflexia Spinal stenosis of cervical region Demyelinating disease of central nervous system (HCC) Procedures MRI CERVICAL SPINE WO/W IVCON MRI SPINAL CANAL CERVICAL W/O & [place] [address] [place] [address] Mr Imaging [place] [address] Referral ID Status Reason Start Date Expiration Date V isits Requested Visits Authorized [id number] Closed Auto-Generate d Referral 11/06/2023 07/06/2024 1 1 T [facility] for referral (narrative)No reason for referral information availableC[facility] Work Phone: Reason for visit Narrativecontinued back pain, discuss multiple issues, see treatment planMuncie [employer] Other Reason for visit Narrative* Diagnostic Procedure Only (Routine) - Closed Specialty Diagnoses / Procedures Referred By Contac t Referred To Contact MR IMAGING Diagnoses Hyperreflexia Demyelinating disease of central nervous system (HCC) Procedures MRI THORACIC SPINE WO/W IVCON MRI SPINAL CANAL THORACIC W/O & [place] [address] [place] [address] [place] [address] Referral ID Status Reason Start Date Expiration Date V isits Requested Visits Authorized [id number] Closed Auto-Generate d Referral 11/06/2023 07/06/2024 1 1 [facility] for visit Narrative* Diagnostic Procedure Only (Routine) - Closed Specialty Diagnoses / Procedures Referred By Contac t Referred To Contact MR IMAGING Diagnoses Hyperreflexia Spinal stenosis of cervical region Demyelinating disease of central nervous system (HCC) Procedures MRI CERVICAL SPINE WO/W IVCON MRI SPINAL CANAL CERVICAL W/O & W/CONTR Abiodun Bone, [address] [place] [address] [place] [address] Referral ID Status Reason Start Date Expiration Date V isits Requested Visits Authorized [id number] Closed Auto-Generate d Referral 11/06/2023 07/06/2024 1 1 [facility] for visit Narrative* Imaging (Routine) - Pending Review Specialty Diagnoses / Procedures Referred By Ryan t Referred To Contact Radiology Diagnoses Encounter for screening for cardiovascular disorders Procedures CT cardiac scoring wo IV contrast Yannick Velázquez, [address] [place] [address] Phone: tel: fax: Referral ID Status Reason Start Date Expiration Date Visits Requested Visits Authorized [id number] Pending Review Perform Procedure 10/20/2024 10/20/[address] 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 REFERRING M.D.: Yannick Velázquez, DO [address] [place] [address] Consultation requested by Gisel for an opinion [...] bulge. no blood in urine QUESTIONNAIRE: Questionnaire: [facility] Base Question Answer [...] brain Anxiety Lipoma Twitching Vitamin B12 deficiency Chief Complaint Admit Date med refill September 29, 2024 8:5 9am Reason for Visit Admit Date Abnormal finding on MRI of brain September 052024 8:59am Anxiety September 29, 2024 8:5 9am Degenerative disc disease, lumbar September 29, 2024 8:59am History of cystitis September 29, 2024 8:5 9am Magnesium deficiency September 29, 2024 8: 59am Periodic limb movement disorder September 292024 8:59am Pruritus September 29, 2024 8:5 9am Rhinorrhea September 29, 2024 8:5 9am Twitching September 29, 2024 8:5 9am Vitamin B12 deficiency September 29, 2024 8:59am Vitamin D deficiency September 29, 2024 8: 59am Chief Complaint Admit Date med refill September 29, 2024 8:5 9am anxiety/discuss meds October 20, 2024 12 :34pm Reason for Visit Admit Date Abnormal finding on MRI of brain September 052024 8:59am Anxiety September 29, 2024 8:5 9am Degenerative disc disease, lumbar September 29, 2024 8:59am History of cystitis September 29, 2024 8:5 9am Magnesium deficiency September 29, 2024 8: 59am Periodic limb movement disorder September 292024 8:59am Pruritus September 29, 2024 8:5 9am Rhinorrhea September 29, 2024 8:5 9am Twitching September 29, 2024 8:5 9am Vitamin B12 deficiency September 29, 2024 8:59am Vitamin D deficiency September 29, 2024 8: 59am Anxiety October 20, 2024 12: 34pm Low serum estradiol October 20, 2024 12: 34pm Twitching October 20, 2024 12: 34pm Chief Complaint Admit Date anxiety/discuss meds October 20, 2024 12 :34pm med refill January 03, 2025 11:0 3am Reason for Visit Admit Date Anxiety October 20, 2024 12: 34pm Low serum estradiol October 20, 2024 12: 34pm Twitching October 20, 2024 12: 34pm Anxiety January 03, 2025 11:0 3am Arm paresthesia, left January 03, 2025 11 :03am Fatigue January 03, 2025 11:0 3am Low serum estradiol January 03, 2025 11:0 3am Twitching January 03, 2025 11:0 3am Reason for Referral Specialty Diagnoses / Procedures Referred By Biankaac t Referred To Contact Radiology Diagnoses Heterogeneously dense tissue of both breasts on mammography Procedures NM Molecular breast imaging localization limited area Raven Smith, [employer] ASSISTANT [address] [place] [address] Referral ID Status Reason Start Date Expiration Date V isits Requested Visits Authorized [id number] Pending Review 01/07/2024 01/06/2025 5 5 Specialty Diagnoses / Procedures Referred By Ryan t Referred To Contact MR IMAGING Diagnoses Brain cyst Procedures MRI BRAIN WO/W IVCON MRI BRAIN BRAIN STEM W/O W/CONTRAST MATERIAL Janna Gilman MD [address] [place] [id number] Mr [id number] Referral ID Status Reason Start Date Expiration Date Visits Requested Visits Authorized [id number] New Request Auto-Generat ed Referral 06/05/2025 1 1 Specialty Diagnoses / Procedures Referred By Ryan t Referred To Contact Diagnoses Hypersomnia Sleep disturbance Catathrenia Sleep talking Procedures Multiple sleep latency test Suzanne Gee DO [address] [place] [address] Referral ID Status Reason Start Date Expiration Date V isits Requested Visits Authorized [id number] Pending Review 04/15/2024 10/12/2024 1 1 Specialty Diagnoses / Procedures Referred By Ryan t Referred To Contact Diagnoses AB (obstructive sleep apnea) Procedures Polysomnography Suzanne Gee DO [address] [place] [address] Referral ID Status Reason Start Date Expiration Date V isits Requested Visits Authorized [id number] Pending Review 04/15/2024 10/12/2024 1 1 Specialty Diagnoses / Procedures Referred By Contac t Referred To Contact Neurology Diagnoses Fasciculation Hyperreflexia Procedures CONSULT TO NEUROLOGY OFFICE/OUTPATIENT [facility] [address] [place] [address] [place] [address] Referral ID Status Reason Start Date Expiration Date Visits Requested Visits Authorized [id number] Authorized PCP Requested Referral 12/12/2023 12/11/2024 1 1 Specialty Diagnoses / Procedures Referred By Contac t Referred To Contact MR IMAGING Diagnoses Hyperreflexia Demyelinating disease of central nervous system (HCC) Procedures MRI BRAIN WO IVCON MRI BRAIN BRAIN STEM W/[place] [address] [place] [id number] Mr [facility] [place] [address] Referral ID Status Reason Start Date Expiration Date Visits Requested Visits Authorized [id number] Pending Review Auto-Generat ed Referral 10/27/2023 11/25/2024 1 1 Specialty Diagnoses / Procedures Referred By Contac t Referred To Contact MR IMAGING Diagnoses 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) Demyelinating disease of central nervous system (HCC) Procedures MRI THORACIC SPINE WO IVCON MRI SPINAL CANAL THORACIC W/[place] [address] [place] [id number] [place] [facility] [place] [facility] Referral ID Status Reason Start Date Expiration Date Visits Requested Visits Authorized [id number] Pending Review Auto-Generat ed Referral 10/27/2023 11/25/2024 [...] CERVICAL W/[place] [address] [place] [phone] [place] [address] Referral ID Status Reason Start Date Expiration Date Visits Requested Visits Authorized [id number] Pending Review Auto-Generat ed Referral 10/27/2023 11/25/2024 1 1 Reason appt pt needs cons ult to discuss twitching, numbness right foot, neuropathy Diagnosis 1 Twitching (R25.3) Referral Organization [facility] [employer] Referring Provider First Name Yannick Referring Provider Last Name Gisel Referring Provider Specialty Family Prac loretta Referred Organization [facility] Referred Provider Nathen Hoover Referred Address [address] [facility], [place], [place],[address] Referred Provider Specialty Neurology Referral Priority Routine General Notes Victoirna Cassidy 05/22/2023 12:19:06 PM > GIANA referral form faxed with visit note, med list, demographics, MRI and xray lumbar spine reports, labs and copy of insurance card. pt understands she will be contacted to schedule this appt. Reason appt consult for e lynn and treatment of b/l thyroid nodules Diagnosis 1 Thyroid nodule (E04. 1) Referral Organization [facility] [employer] Gupta Referring Provider First Name Yannick Referring Provider Last Name Gisel Referring Provider Specialty Family Prac loretta Referred Organization [facility] Referred Provider Reza Gorman Referred Address ,[place], [place],[address] Referred Provider Specialty Ear, Nose an d [...] Lumbar degenerative disc disease (M51.36) Referral Organization [facility] [employer]inanol[employer] edie MaresO'Neals Referring Provider First Name Yannick Referring Provider Last Name Gisel Referring Provider Specialty Family Prac loretta Referred Organization [facility] urosurgery Referred Provider Victorina Martinez Referred Address [address] [facility] [address] ,[place], [place],[address] Referred Provider Specialty Neurological Surgery Referral Priority Routine Referral Appointment Date 2022-09-18 General Notes Victorina Cassidy 08/29/2022 01:50:55 PM > referral sent p2p. pt understands she will be contacted to schedule this appt. Victorina Cassidy 08/30/2022 10:55:52 AM > appt scheduled on 09/18/22 at 8:20am Additional Source Comments INFORMATION SOURCE (unrecogn ized section and content) DATE CREATED AUTHOR 11/17/2019 [facility] DATE CREATED AUTHOR AUTHOR'S ORGANIZ ATION 07/06/2022 [facility] DATE CREATED AUTHOR AUTHOR'S ORGANIZ ATION 05/29/2023 [facility] DATE CREATED AUTHOR AUTHOR'S ORGANIZ ATION 10/01/2023 [facility] DATE CREATED AUTHOR AUTHOR'S ORGANIZ ATION 03/29/2024 [facility] DATE CREATED AUTHOR AUTHOR'S ORGANIZ ATION 04/22/2024 [facility] DATE CREATED AUTHOR AUTHOR'S ORGANIZ ATION 06/27/[address] [facility] DATE CREATED AUTHOR AUTHOR'S ORGANIZ ATION 07/02/2024 [facility] DATE CREATED AUTHOR AUTHOR'S ORGANIZ ATION 08/06/2024 [facility] Specialists [facility] DATE CREATED AUTHOR AUTHOR'S ORGANIZ ATION 10/27/2024 [facility] DATE CREATED AUTHOR AUTHOR'S ORGANIZ ATION 11/08/2024 [facility] DATE CREATED AUTHOR AUTHOR'S ORGANIZ ATION 12/07/2024 [facility] DATE CREATED AUTHOR AUTHOR'S ORGANIZ ATION 12/23/2024 [facility] Source Comments (unrecognize d section and content) In the event this informatio n is protected by the Federal Confidentiality of Alcohol and Drug Abuse Patient Records regulations: The Federal rules restrict any use of the information to criminally investigate or prosecute any alcohol or drug abuse patient.[facility] the event this information is protected by the Federal Confidentiality of Alcohol and Drug Abuse Patient Records regulations: The Federal rules restrict any use of the information to criminally investigate or prosecute any alcohol or drug abuse patient.[facility] CenterIn the event this information is protected by the Federal Confidentiality of Alcohol and Drug Abuse Patient Records regulations: The Federal rules restrict any use of the information to criminally investigate or prosecute any alcohol or drug abuse patient.[facility] CenterIn the event this information is protected by the Federal Confidentiality of Alcohol and Drug Abuse Patient Records regulations: The Federal rules restrict any use of the information to criminally investigate or prosecute any alcohol or drug abuse patient.[facility] CenterIn the event this information is protected by the Federal Confidentiality of Alcohol and Drug Abuse Patient Records regulations: The Federal rules restrict any use of the information to criminally investigate or prosecute any alcohol or drug abuse patient.[facility] CenterIn the event this information is protected by the Federal Confidentiality of Alcohol and Drug Abuse Patient Records regulations: The Federal rules restrict any use of the information to criminally investigate or prosecute any alcohol or drug abuse patient.[facility] CenterIn the event this information is protected by the Federal Confidentiality of Alcohol and Drug Abuse Patient Records regulations: The Federal rules restrict any use of the information to criminally investigate or prosecute any alcohol or drug abuse patient.[facility] CenterIn the event this information is protected by the Federal Confidentiality of Alcohol and Drug Abuse Patient Records regulations: The Federal rules restrict any use of the information to criminally investigate or prosecute any alcohol or drug abuse patient.[facility] CenterIn the event this information is protected by the Federal Confidentiality of Alcohol and Drug Abuse Patient Records regulations: The Federal rules restrict any use of the information to criminally investigate or prosecute any alcohol or drug abuse patient.[facility] CenterIn the event this information is protected by the Federal Confidentiality of Alcohol and Drug Abuse Patient Records regulations: The Federal rules restrict any use of the information to criminally investigate or prosecute any alcohol or drug abuse patient.[facility] CenterIn the event this information is protected by the Federal Confidentiality of Alcohol and Drug Abuse Patient Records regulations: The Federal rules restrict any use of the information to criminally investigate or prosecute any alcohol or drug abuse patient.[facility] CenterIn the event this information is protected by the Federal Confidentiality of Alcohol and Drug Abuse Patient Records regulations: The Federal rules restrict any use of the information to criminally investigate or prosecute any alcohol or drug abuse patient.[facility] CenterIn the event this information is protected by the Federal Confidentiality of Alcohol and Drug Abuse Patient Records regulations: The Federal rules restrict any use of the information to criminally investigate or prosecute any alcohol or drug abuse patient.[facility] CenterIn the event this information is protected by the Federal Confidentiality of Alcohol and Drug Abuse Patient Records regulations: The Federal rules restrict any use of the information to criminally investigate or prosecute any alcohol or drug abuse patient.[facility] CenterIn the event this information is protected by the Federal Confidentiality of Alcohol and Drug Abuse Patient Records regulations: The Federal rules restrict any use of the information to criminally investigate or prosecute any alcohol or drug abuse patient.[facility] the event this information is protected by the Federal Confidentiality of Alcohol and Drug Abuse Patient Records regulations: The Federal rules restrict any use of the information to criminally investigate or prosecute any alcohol or drug abuse patient.[facility] the event this information is protected by the Federal Confidentiality of Alcohol and Drug Abuse Patient Records regulations: The Federal rules restrict any use of the information to criminally investigate or prosecute any alcohol or drug abuse patient.[facility] Reason for Visit (unrecogniz ed section and content) Reason Comments Consult bladder prolapse, tw daron, uncomfortable, pressure with constipation Reason Comments New Patient Evaluation Low Back Pain States a low back pa in with bilateral calf twitching for about 6 months. Pain / Reason Comments MRI Appointment Follow Up Reason Comments MRI Appointment Reason Comments Follow Up Results - Mri Reason Comments Radiology MRI Specialty Diagnoses / Procedures Referred By Contac t Referred To Contact MR IMAGING Diagnoses Hyperreflexia Syringomyelia and syringobulbia (HCC) Procedures MRI BRAIN WO/W IVCON MRI BRAIN BRAIN STEM W/O W/[place] [address] [place] [id number] [facility] [place] [address] Referral ID Status Reason Start Date Expiration Date V isits Requested Visits Authorized [id number] Closed Auto-Generate d Referral 11/06/2023 07/06/2024 1 1 Reason Comments New Patient Consult Specialty Diagnoses / Procedures Referred By Contac t Referred To Contact Neurology Diagnoses Fasciculation Hyperreflexia Procedures CONSULT TO NEUROLOGY OFFICE/OUTPATIENT NEW HIGH MDM 60 [place] [address] [address] [place] [phone] Referral ID Status Reason Start Date Expiration Date V isits Requested Visits Authorized [id number] Closed PCP Requested Referral 12/12/2023 12/11/2024 1 1 Reason Comments Sleeping Problem Reason Comments Sleeping Problem Specialty Diagnoses / Procedures Referred By Contac t Referred To Contact MR IMAGING Diagnoses Brain cyst Procedures MRI BRAIN WO/W IVCON MRI BRAIN BRAIN STEM W/O W/CONTRAST MATERIAL Janna Gilman MD [address] [facility] [place] [address] [facility] [place] [address] Referral ID Status Reason Start Date Expiration Date V isits Requested Visits Authorized [id number] Closed Auto-Generate d Referral 05/06/2024 06/05/2025 1 1 Reason Comments Thyroid Nodule 6 month ultrasound T BH Reason Comments Postmenopausal bleeding Reason Comments Gynecologic Exam Pt is here for annua l exam. Reason Comments Vaginal Lesions Reason Comments Follow-up Reason Comments EMB/[facility] Reason Comments Med Change Request Stephanie Perrin MA - 09/06/2020 1:40 PM EST Nursing Notes (unrecognized section and content) PVR 0 documented in this encounter Care Teams (unrecognized sec tion and content) Team Status: Active Member Role Status Austin Velázquez DO Primary Care Provider Active Team Status: Inactive Member Role Status Austin Velázquez DO Primary Care Provide r, Attending Provider Active Start: September 29, 2024 End: September 29, 2024 Team Status: Active Member Role Status Austin [...] Active Team Status: Inactive Member Role Status SELAM Tran Attending Provider Active PHYSICIAN NO FAMILY Primary Care Provider Active Team Status: Active Member Role Status Dates PHYSICIAN NO FAMILY Primary Care Provider Active Team Status: Inactive Member Role Status Austin Velázquez DO Primary Care Provider Active Pelon Blandon APRN Emergency Provider Active Team Status: Inactive Member Role Status Austin Velázquez DO Primary Care Provider Active Victorina Martinez MD Attending Provider Active Team Status: Inactive Member Role Status Dates Yannick Velázquez DO Primary Care Provide r, Attending Provider Active Start: September 17, 2023 End: September 17, 2023 Geosciences Professor Relationship Specialty Start Date End Date Yannick Velázquez DO [address] [place] [phone] PCP - General Family Medicine 08/31/20 Yannick Velázquez, [address] [place] [address] Referring Family Medicine 08/31/20 Geosciences Professor Relationship Specialty Start Date End Date Yannick Velázquez DO [address] [place] [address] PCP - General Family Medicine 08/31/20 Yannick Velázquez DO [address] [place] [id number] Referring Family Medicine 08/31/20 Geosciences Professor Relationship Specialty Start Date End Date Yannick Velázquez, [address] [place] [phone] PCP - General Family Medicine 08/31/20 Yannick Velázquez, [address] [place] [address] Referring Family Medicine 08/31/20 Geosciences Professor Relationship Specialty Start Date End Date Yannick Velázquez, [address] [place] [address] PCP - General Family Medicine 08/31/20 Yannick Velázquez, [address] [place] [phone] Referring Family Medicine 08/31/20 Geosciences Professor Relationship Specialty Start Date End Date Yannick Velázquez DO [address] [place] [phone] PCP - General Family Medicine 08/31/20 Yannick Velázquez, [address] [place] [address] Referring Family Medicine 08/31/20 Team Status: Active Member Role Status Dates Yannick Velázquez DO Primary Care Provider Active S tart: September 24, 2023 Prabhjot Tafoya LPN Attending Provider Active St art: September 24, 2023 Geosciences Professor Relationship Specialty Start Date End Date Yannick Velázquez DO [address] [place] [address] PCP - General Family Medicine 08/31/20 Yannick Velázquez, [address] [place] [address] Referring Family Medicine 08/31/20 Geosciences Professor Relationship Specialty Start Date End Date Yannick Velázquez DO [address] [place] [address] PCP - General Family Medicine 08/31/20 Yannick Velázquez, [address] [place] [address] Referring Family Medicine 08/31/20 Geosciences Professor Relationship Specialty Start Date End Date Yannick Velázquez, [address] [place] [address] PCP - General Family Medicine 08/31/20 Yannick Velázquez, DO [address] [place] [address] Referring Family Medicine 08/31/20 Geosciences Professor Relationship Specialty Start Date End Date Yannick Velázquez, [address] [place] [address] PCP - General Family Medicine 08/31/20 Yannick Velázquez, [address] [place] [address] Referring Family Medicine 08/31/20 Geosciences Professor Relationship Specialty Start Date End Date Yannick Velázquez, [address] [place] [address] PCP - General Family Medicine 08/31/20 Yannick Velázquez, [address] [place] [address] Referring Family Medicine 08/31/20 Geosciences Professor Relationship Specialty Start Date End Date Yannick Velázquez DO [address] [place] [address] PCP - General Family Medicine 08/31/20 Yannick Velázquez, [address] [place] [address] Referring [...] March 24, 2024 End: March 24, 2024 Geosciences Professor Relationship Specialty Start Date End Date Yannick Velázquez MD [address] [place], [place] [id number] PCP - General Family Medicine 01/08/23 Geosciences Professor Relationship Specialty Start Date End Date Yannick Velázquez MD [address] [place] [address] PCP - General Family Medicine 01/08/23 Geosciences Professor Relationship Specialty Start Date End Date Yannick Velázquez MD [address] [place] [address] PCP - General Family Medicine 01/08/23 Geosciences Professor Relationship Specialty Start Date End Date Yannick Velázquez DO [address] [place] [address] PCP - General Family Medicine 08/31/20 Yannick Velázquez DO [address] [place] [address] Referring Family Medicine 08/31/20 Geosciences Professor Relationship Specialty Start Date End Date Yannick Velázquez MD [address] [place] [address] PCP - General Family Medicine 01/08/23 Geosciences Professor Relationship Specialty Start Date End Date Yannick Velázquez DO [address] [place] [place] [address] PCP - General 06/11/17 Geosciences Professor Relationship Specialty Start Date End Date Yannick Velázquez DO [address] [place] [address] [place] [address] PCP - General 06/11/17 Geosciences Professor Relationship Specialty Start Date End Date Yannick Velázquez DO [address] [place] [address] PCP - General 06/11/17 Geosciences Professor Relationship Specialty Start Date End Date Yannick Velázquez DO [address] [place] [address] PCP - General 06/11/17 Geosciences Professor Relationship Specialty Start Date End Date Yannick Velázquez DO [address] [place] [address] PCP - General 06/11/17 Geosciences Professor Relationship Specialty Start Date End Date Yannick Velázquez DO [address] [place] [address] PCP - General 06/11/17 Team Status: Inactive Member Role Status Dates Yannick Velázquez DO Primary Care Provide r, Attending Provider Active Start: October 20, 2024 End: October 20, 2024 Geosciences Professor Relationship Specialty Start Date End Date Yannick Velázquez DO [address] [place] [address] PCP - General 06/11/17 Geosciences Professor Relationship Specialty Start Date End Date Yannick Velázquez DO [address] [place] [address] PCP - General 06/11/17 Geosciences Professor Relationship Specialty Start Date End Date Yannick Velázquez DO [address] [place] [phone] PCP - General 06/11/17 Geosciences Professor Relationship Specialty Start Date End Date GiselYannick DO [place] [address] [place] [address] PCP - General 01/18/19 Team Status: Inactive Member Role Status Dates Yannick Velázquez DO Primary Care Provider Active S tart: October 20, 2024 End: October 20, 2024 Yannick Velázquez DO Attending Provider Active Star t: October 20, 2024 End: October 20, 2024 Team Status: Inactive Member Role Status Dates Yannick Velázquez DO Primary Care Provider Active S tart: January 03, 2025 End: January 03, 2025 Yannick Velázquez DO Attending Provider Active Star t: January 03, 2025 End: January 03, 2025 Goals (unrecognized section and content) Goals may [...] BE BASED ON THE PRIMARY CLINICAL RECORDS. The Library [facility]. provides no warranty or guarantee of the accuracy or completeness of information in this document."
== END 2025-01-18 07:29 | disposition home or self-care (01) ==
PROVIDERS: PCP Family Medicine; Visit Provider Otolaryngology
DX: E04.2 Nontoxic multinodular goiter (principal)
CPT/HCPCS: 76536

== ENCOUNTER 2025-03-25 07:20 | Outpatient (OUT) | payer OTHER, SELFPAY ==
--- OUTSIDE RECORDS SUMMARY | 2025-03-25 07:24 | XMS_ITS | CCD ---
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 Name Role Phone Yannick Velázquez Primary Care [...] Farrukh Reinoso III, MD Attending U navailable YANNICK VELÁZQUEZ Referring Unavailable YANNICK VELÁZQUEZ Primary Care Unavailable Yannick Velázquez DO Primary Care Provider Yannick Velázquez DO Unavailable Yannick Velázquez DO Primary Care Provider Yannick Velázquez MD Primary Care Provider Yannick Velázquez Referring Unavailable Florentin NEVILLE Attending Unavailable Yannick Velázquez Primary Care Physician Yannick Velázquez Primary Care Unavailable Ivy Garcia Attending Unavailable Ivy Garcia Admitting Unavailable RADHA HERNÁNDEZA Shani Referring Unavailable YANNICK VELÁZQUEZ Primary Care Unavailable RADHA HERNÁNDEZA M Referring Unavailable YANNICK VELÁZQUEZ Primary Care Unavailable Yannick Velázquez DO Primary Care Provider Yannick Velázquez DO Primary Care Provider RADHA HERNÁNDEZA M Referring Unavailable YANNICK VELÁZQUEZ Primary Care Unavailable MANUEL RAVEN M Referring Unavailable YANNICK VELÁZQUEZ Primary Care Unavailable JOSE EDUARDO, KATIA Referring Unavailable YANNICK VELÁZQUEZ Primary Care Unavailable JOSE EDUARDO, KATIA L Referring Unavailable YANNICK VELÁZQUEZ Primary Care Unavailable JOSE EDUARDO, KATIA Attending Unavailable JOSE EDUARDO, KATIA Referring Unavailable YANNICK VELÁZQUEZ Primary Care Unavailable RAVEN SMITH Attending Unavailable SARAH RAVEN M Referring Unavailable YANNICK VELÁZQUEZ Primary Care Unavailable RAVEN SMITH Attending Unavailable SARAH RAVNE M Referring Unavailable YANNICK VELÁZQUEZ Primary Care Unavailable Yannick Velázquez DO Primary Care Provider [phone] YANNICK VELÁZQUEZ Referring Unavailable YANNICK VELÁZQUEZ Primary Care Unavailable YANNICK VELÁZQUEZ Referring Unavailable YANNICK VELÁZQUEZ Primary Care Unavailable JOSE EDUARDO, KATIA L Attending Unavailable YANNICK VELÁZQUEZ Referring Unavailable YANNICK VELÁZQUEZ Primary Care Unavailable YANNICK VELÁZQUEZ Referring Unavailable YANNICK VELÁZQUEZ Primary Care Unavailable JOSE EDUARDO, KATIA L Attending Unavailable YANNICK VELÁZQUEZ Referring Unavailable YANNICK VELÁZQUEZ Primary Care Unavailable JOSE EDUARDO, KATIA L Attending Unavailable YANNICK VELÁZQUEZ Referring Unavailable YANNICK VELÁZQUEZ Primary Care Unavailable JOSE EDUARDO, KATAI L Attending Unavailable YANNICK VELÁZQUEZ Referring Unavailable YANNICK VELÁZQUEZ Primary Care Unavailable JOSE EDUARDO, KATIA L Attending Unavailable YANNICK VELÁZQUEZ Referring Unavailable YANNICK VELÁZQUEZ Primary Care Unavailable Yannick Velázquez DO Primary Care Provider Yannick Velázquez DO Attending Provider [phone] Yannick Velázquez MD Primary Care Provider [phone] REZA GORMAN Attending Unavailable REZA GORMAN Attending Unavailable REZA GORMAN Attending Unavailable SUZANNE GEE Attending Unavailable IVY GARCIA Attending Unavailable Yannick Velázquez DO Primary Care Provider Yannick Velázquez DO Attending Provider YANNICK HARPER Attending Unavailable GILMAN, JANNA H Referring Unavailable YANNICK VELÁZQUEZ Primary Care Unavailable GILMAN, JANNA H Attending Unavailable ABIODUN CASTANO Referring Unavailable YANNICK VELÁZQUEZ Primary Care Unavailable GILMAN, JANNA H Referring Unavailable YANNICK VELÁZQUEZ Primary Care Unavailable GILMAN, JANNA H Referring Unavailable YANNICK VELÁZQUEZ Primary Care Unavailable Allergies Allergy Classification Reported Allergen(s) Allergy Type Date of Onset Reaction(s) Facility (19 sources) Adhesive Tape-Silicones; Translations: [ADHESIVE TAPE-SILICONES] Drug Allergy 09-07-19 21 Rash, Hives [facility] (20 sources) Nitrofurantoin; Translations: [Macrobid] Drug Allergy Diarrhea (finding) [facility] Repository (20 sources) steri-strips Propensity to adverse reactions rash Biocept [facility] Other (3 sources) Adhesive bandage; Translations: [Adhesive Bandage] Drug allergy (disorder) 12-17-19 19 Eruption of skin (disorder) [facility] Repository (20 sources) NITROFURANTOIN, MACROCRYSTALS / Nitrofurantoin, Monohydrate Drug Allergy 10-27-19 25 Diarrhea [facility] Other (1 source) steri stips; Translations: [steri stips] Propensity to adverse reactions (disorder) [facility] Repository (10 sources) Adhesive Tape; Translations: [adhesive tape] Allergy to substance 09-17-19 24 [facility] (20 sources) Nitrofurantoin; Translations: [nitrofurantoin] Drug Allergy 09-17-19 24 diarrhea [facility] (20 sources) Adhesive agent; Translations: [ADHESIVE] Propensity to adverse reactions to drug (disorder) 05-20-20 Itching, Rash, Swelling [facility] Repository (17 sources) Fluorouracil-Adhe sive Bandage; Translations: [FLUOROURACIL-ADH ESIVE BANDAGE] Drug Allergy 12-17-19 19 Rash [facility] (14 sources) Wound Dressing Adhesive Drug Allergy 01-10-20 23 Rash [facility] Healthcare Work Phone: (3 sources) NITROFURANTOIN MONOHYD/M-CRYST; Translations: [NITROFURANTOIN MONOHYD/M-CRYST] Propensity to adverse reactions to drug (disorder) 10-27-19 [facility] Repository (1 source) ALLERGIES NOT ON FILE; Translations: [ALLERGIES NOT ON FILE] Propensity to adverse reactions (disorder) [facility] Repository Medications Current Medications Medication Drug Class(es) Dates Sig (Normalized) Sig (Original) ALPRAZolam 0.25 mg oral tablet (20 sources) Benzodiazepine Start: 09-29-2024 Alprazolam (Xanax) 0.25 mg tablet Active 0 PO .Q8-12 hrs prn 36 September 29, 2024 9:31am 1/2 to 1 tablet Orally q8-12 hrs prn Complies with drug therapy Start: 09-17-2023 End: 06-15-2024 Alprazolam (Xanax) 0.25 mg t ablet Discontinued 0 PO .Q8-12 hrs prn 36 April 27, 2024 2:25pm June 15, 2024 4:21pm 1/2 to 1 tablet Orally q8-12 hrs prn Start: 02-10-2020 take 1 tablet by erika th three times daily as needed for anxiety Xanax 0.25 mg Tab See Instructions, PRN as needed for anxiety, tab(s) mg Oral TID, Refills(s) 0 Start Date: 02/10/20 Status: Ordered Start: 02-27-2017 take 2 tablets by mo [facility] every eight hours as needed ALPRAZolam (XANAX) 0.25 mg tablet Take 0.5 mg by mouth three times a day as needed. 02/27/2017 Active Start: 02-27-2017 Xanax 0.25 MG 1/2 to 1 tablet Orally q8-12 hrs prn Feb, Active End: 08-31-2024 ALPRAZolam (Xanax) 0.25 MG t ablet Take 0.5 tablets by mouth as needed in the morning and 0.5 tablets as needed at noon and 0.5 tablets as needed in the evening for anxiety. Active B complex (2 sources) Start: 02-08-2025 b complex-folic acid tablet (14 sources) take 1 tablet by mouth once daily b complex-folic acid tablet Take 1 tablet by mouth Daily Active take 1 tablet by mouth in the mo rning b complex-folic acid tablet Take 1 tablet by mouth in the morning. Active BD Luer-Chasity Syringe 25G X 5/ 8 3 ML (20 sources) BD Luer-Chasity Syri nge 25G X 5/8 3 ML USE DIRECTED WITH INJECTION Active BD Luer-Chasity Syri nge 25G X 5/8 3 ML USE DIRECTED WITH INJECTION for 28 days Active BD Luer-Chasity Syri nge 25G X 5/8 3 ML USE DIRECTED WITH B12 INJECTION Active busPIRone hydrochloride 5 mg oral tablet (2 sources) Start: 03-22-2025 End: 03-22-2025 take 1 tablet by mouth twice daily Buspirone 5 mg tablet Active 5 MG PO Twice daily 60 March 22, 2025 3:32pm Complies with drug therapy cholecalciferol 0.025 mg chewable tablet (20 sources) Vitamin D Start: 11-09-2019 take 1 tablet by mouth once daily take 1 tablet by mouth in the mo rning cholecalciferol 1,000 units tablet Take 1 tablet (1,000 Units total) by mouth in the morning. Active cholecalciferol, vitD3,/vit K2 (VITAMIN D3-VITAMIN K2 ORAL) (8 sources) cholecalciferol, vitD3,/vit K2 (VITAMIN D3-VITAMIN K2 ORAL) Take by mouth once daily. Active cholecalciferol, vitD3,/vit K2 (VITAMIN D3-VITAMIN K2 ORAL) Take by mouth once daily. 0 Active estrogen cream (1 source) Start: 03-22-2025 estrogen cream Active TOPICAL March 22, 2025 12:00am Complies with drug therapy ferrous fumarate/ascorbic ac id (WILLIAM-SEQUELS, IRON-VIT C, ORAL) (17 sources) ferrous fumarate /ascorbic acid (WILLIAM-SEQUELS, IRON-VIT [...] (20 sources) Folate Not-Takin g Folate Active iv contrast (will be [...] 11/05/2023 11/06/2023 Active magnesium citrate 125 mg ora l capsule (4 sources) Start: 10-20-2024 take 1 capsule by [facility] once daily magnesium oxide 400 mg oral tablet (20 sources) Start: 09-17-2023 End: 08-04-2024 methlyfolate 800 mg (10 sources) Start: 09-29-2024 Start: 09-29-2024 methlyfolate 8 00 mg Active PO .PRN September 29, 2024 9:20am Complies with drug therapy Start: 09-29-2024 methlyfolate 8 00 mg Active PO .PRN September 29, 2024 9:20am Start: 06-15-2024 End: 09-29-2024 methlyfolate 800 mg Disconti nued PO June 15, 2024 1:00am September 29, 2024 9:21am nystatin [id number] unt oral tablet (2 sources) Polyene Antifungal Start: 02-08-2025 take 2 tablets by mouth three times daily omega 3 (2 sources) Start: 02-08-2025 progesterone 200 mg oral capsule (11 sources) Progesterone Start: 10-20-2024 take 1 capsule by mouth once daily in the evening Progesterone Micronized (Prometrium) 200 mg capsule Active 200 MG PO Every evening 06 17October 20, 2024 12:00am Complies with drug therapy Selenium (3 sources) Selenium Active Syringe 25G X 5/8 3 ML (2 sources) Syringe 25G X 5/ 8 3 ML as directed with B12 injection Active Completed/Discontinued Medications Medication Drug Class(es) Dates Sig (Normalized) Sig (Original) acetaminophen 325 mg / oxyCODONE hydrochloride 5 mg oral tablet (11 sources) Opioid Agonist Start: 02-23-2023 End: 09-17-2023 take 1 tablet by mouth every four hours as needed for pain Oxycodone-Acetamin ophen 5-325 mg tablet Discontinued 1 TAB PO Q4H as needed for Pain February 23, 2023 12:00am September 17, 2023 3:35pm amoxicillin 500 mg oral capsule (6 sources) Penicillin-class Antibacterial Start: 02-08-2025 End: 03-22-2025 take 1 capsule by mouth three times daily Amoxicillin 500 mg capsule Discontinued 500 MG PO Three times daily February 08, 2025 12:00am March 22, 2025 2:57pm Start: 12-24-2021 take 1 tablet by erika th every twelve hours Amoxicillin 875 MG 1 tablet Orally Twice a day Dec, Active amoxicillin 875 mg / clavulanate 125 mg oral tablet (3 sources) Penicillin-class Antibacterial Start: 11-24-2024 End: 01-03-2025 take [...] Jan, Not-Taking ciprofloxacin 500 mg oral tablet (6 sources) Quinolone Antimicrobial Start: 09-29-2024 End: 10-20-2024 take 1 tablet by mouth twice daily Ciprofloxacin Hcl (Cipro) 500 mg tablet Discontinued 500 MG PO Twice daily 6 September 29, 2024 12:00am October 20, 2024 12:43pm Start: 03-01-2020 take 1 tablet by erika th every twelve hours Cipro 500 MG 1 tablet Orally bid for 5 days Feb, Active clonazePAM 0.5 mg oral tablet (5 sources) Benzodiazepine Start: 06-15-2024 End: 09-29-2024 take [...] Not-Taking doxycycline hyclate 100 mg oral capsule (6 sources) Tetracycline-class Drug Start: 11-16-2024 End: 11-24-2024 take 1 capsule by mouth twice daily Doxycycline Hyclate 100 mg capsule Discontinued 100 MG PO Twice daily November 16, 2024 11:24am November 24, 2024 2:50pm estradiol 0.1 mg/ml vaginal cream (20 sources) Estrogen Start: 01-03-2025 End: 02-08-2025 apply 1 dose transdermal route two times weekly Estradiol 0.05 mg/24 hr patch semiweekly Discontinued 1 PATCH TRANSDERML Twice a Week January 03, 2025 12:00am February 08, 2025 12:47pm Start: 01-03-2025 End: 03-22-2025 Estradiol 0.01 % (0.1 mg/gra m) cream Discontinued VAGINAL January 03, 2025 12:00am March 22, 2025 3:00pm Start: 12-23-2024 estradioL (DORA ROSALINDA-DOT) 0.05 mg/24 [...] times a week. 8 patch 11 11/11/2024 11/30/2024 Discontinued Start: 11-11-2024 estradioL (DORA [...] 42.5 g 09/30/2023 05/18/2024 Discontinued (Reorder) ferrous sulfate 325 mg oral tablet (10 sources) Start: 09-17-2023 End: 03-24-2024 take 1 tablet by mouth once daily Ferrous Sulfate 325 mg (65 mg iron) tablet Discontinued 325 MG PO Daily September 17, 2023 12:00am March 24, 2024 3:05pm FreeTextSi tablet Orally qd; Note: Source Status: Continue; Provider: Michelet Rick take 1 tablet by erika every twenty-four hours Ferrous Sulfate 325 (65 Fe) MG 1 tablet Orally qd Active folic acid 0.8 mg / intrinsic factor 20 mg / vitamin b12 0.5 mg oral tablet (14 sources) Vitamin B12 Start: 11-09-2019 End: 09-17-2023 take 1 tablet by mouth once daily Vit [id number] Fact-Fa Cmb #2 (Intrinsi Q44-Tgotnk) 500-20-800 mcg-mg-mcg Tablet Discontinued 1 TAB PO Daily November 09, 2019 12:00am September 17, 2023 3:36pm hydroxocobalamin 1 mg/ml injectable solution (14 sources) Antidote Start: 11-12-2023 End: 03-24-2024 inject [...] November 12, 2023 2:43pm methylcobalamin 12.5 mg/mL (5 sources) Start: 11-10-2023 End: 11-12-2023 inject 12.5 [...] Active phenazopyridine hydrochloride 200 mg oral tablet (4 sources) Start: 09-29-2024 End: 10-20-2024 take 1 tablet by mouth three times daily Phenazopyridine (Pyridium) 200 mg tablet Discontinued 200 MG PO Three times daily 6 September 29, 2024 12:00am October 20, 2024 12:44pm microencapsulated potassium chloride 10 meq extended release oral tablet (3 sources) End: 05-18-2024 take 1 tablet by mouth in the morning potassium chloride (K-TAB,KLOR-CON) 10 MEQ CR tablet Take 1 tablet (10 mEq total) by mouth in the morning and 1 tablet (10 mEq total) before bedtime. 05/18/2024 Discontinued (Therapy completed) potassium citrate (8 sources) End: 03-08-2025 POTASSIUM CITRATE ORAL Take by mouth once daily. 03/08/2025 Discontinued POTASSIUM CITRAT E ORAL Take by mouth once daily. Active POTASSIUM CITRAT E ORAL Take by mouth once daily. 0 Active predniSONE 10 mg oral tablet (11 sources) Start: 02-23-2023 End: 09-17-2023 Prednisone 10 mg tablet Discontinued 10 MG PO Daily 39 February 23, 2023 12:00am September 17, 2023 [...] Act danielle 2 MG PO As Directed 105 November 10, 2023 12:00am 5 caps QD x7 then 4 caps QD x7 then 3 caps QD x7 then 2 caps QD x7 then 1 cap QD x7 then stop Start: 08-02-2020 End: 03-08-2025 take 1 tablet by mouth once daily [...] by mouth. tobramycin 3 mg/ml ophthalmic solution (14 sources) Aminoglycoside Antibacterial Start: End: take 0.3 drop(s) into the eye(s) [...] (20 sources) Vitamin B12 Start: 11-09-2019 End: 03-08-2025 inject 1000 ug by intramuscular injection every [...] flank pain] Onset: 06-11-20 Resolved : 01-10-20 23 Episodic Anxiety disorders (20 sources) Anxiety; Translations: [Anxiety disorder, unspecified] Onset: 06-11-20 Resolved : 09-30-19 24 Chronic Calculus of urinary tract (20 sources) Kidney stone; Translations: [Calculus of kidney] Onset: 08-03-19 22 Episodic Cardiac dysrhythmias (1 source) Tachycardia, unspecified Episodi c Deficiency and other anemia (14 sources) Nutritional anemia; Translations: [Vitamin B12 deficiency anemia, unspecified] 07-06-2019 Episodic Comment on above: Problem List clean-u p per request of Phys. EHR Cmte Diseases of white blood cells (20 sources) Leukopenia; Translations: [Decreased white blood cell count, unspecified] Chronic E Codes: Natural/environment (6 sources) Bitten or stung by nonvenomous insect and other nonvenomous arthropods, initial encounter; Translations: [Cat scratch - wound] Onset: 01-10-20 Resolved : 01-10-20 Episodic Fluid and electrolyte disorders (2 sources) Hypokalemia Episodic Genitourinary symptoms and ill-defined conditions (20 sources) Dysuria; Translations: [Nocturia] Onset: 09-07-19 Resolved : 01-10-2009-06-2020 Episodic Heart valve disorders (4 sources) Heart murmur; Translations: [Cardiac murmur, unspecified] Onset: 01-27-2010-21-2023 Episodic Inflammation; infection of eye (except that caused by tuberculosis or sexually transmitteddisease) (20 sources) Keratoconjunctivitis sicca, not specified as Sjogren's; Translations: [Keratoconjunctivitis sicca, not specified as Sjogren's, bilateral] Chronic Inflammation; infection of eye (except that caused by tuberculosis or sexually transmitteddisease) (1 source) Unspecified conjunctivitis Episodic Malaise and fatigue (13 sources) Other fatigue; Translations: [Fatigue] Episodic Menopausal disorders (10 sources) Postmenopausal bleeding; Translations: [Postmenopausal bleeding] Onset: 09-30-19 24 09-30-2023 Chronic Menstrual disorders (20 sources) Amenorrhea; Translations: [Amenorrhea, unspecified] Chronic Mood disorders (20 sources) Depressive disorder; Translations: [Major depressive disorder, single episode, unspecified] Chronic Nausea and vomiting (1 source) Nausea Episodic Nutritional deficiencies (20 sources) Vitamin D deficiency; Translations: [Vitamin D deficiency, unspecified] Onset: 01-27-20 Chronic Nutritional deficiencies (20 sources) Deficiency of other specified B group vitamins; Translations: [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] Onset: 09-11-19 Resolved : 09-11-19 Episodic Other acquired deformities (1 source) Neuromuscular scoliosis, thoracic region; Translations: [Scoliosis associated with other conditions] 10-21-2023 Chronic Other aftercare (8 sources) Other termination clerk (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 therapy; Translations: [OTH ALF CURRENT DRUG THERAPY] Onset: 12-12-19 Resolved : 12-12-19 Episodic Other and unspecified benign neoplasm (6 sources) Lipoma (clinical); Translations: [Benign lipomatous neoplasm, unspecified] 03-24-2024 Episodic Other and unspecified benign neoplasm (1 source) Benign lipomatous neoplasm, unspecified; Translations: [Lipoma, unspecified site] 03-24-2024 Episodic Other circulatory disease (1 source) Other specified symptoms and signs involving the circulatory and respiratory systems Episodic Other congenital anomalies (2 sources) Pectus excavatum; Translations: [Pectus excavatum] 03-22-2025 Chronic Other connective tissue disease (1 source) Other specified soft tissue disorders Episodic Other connective tissue disease (1 source) Cramp and spasm Episodic Other connective tissue disease (1 source) Pain in right foot Episodic Other diseases of bladder and urethra (20 sources) Spasm of bladder; Translations: [Other specified disorders of bladder] Chronic Other diseases of bladder and urethra (3 sources) Urethral stricture; Translations: [Unspecified urethral stricture, male, unspecified site] Onset: 01-27-2005-30-2020 Episodic Other eye disorders (1 source) Vitreous floaters of left eye; Translations: [Other vitreous opacities, left eye] 03-08-2025 Chronic Other eye disorders (1 source) Other vitreous opacities, left eye; Translations: [Vitreous floaters of left eye] Onset: 03-08-20 Chronic Other female genital disorders (1 source) Abnormal [...] Translations: [Constipation, unspecified] Onset: 07-06-20 Episodic Other gastrointestinal disorders (2 sources) Burping; Translations: [Eructation] 03-22-2025 Episodic Other hereditary and degenerative nervous system conditions (20 sources) Restless legs; Translations: [Restless legs syndrome] Onset: 01-27-2004-02-2024 Chronic Other hereditary and degenerative nervous system conditions (3 sources) Restless legs syndrome Chronic Other inflammatory condition of skin (7 sources) Pruritus, unspecified; Translations: [Pruritus] 09-29-2024 Episodic Other lower respiratory disease (1 source) Other forms of dyspnea Episodic Other nervous system disorders (14 sources) Peripheral nerve disease ; Translations: [Polyneuropathy, unspecified] 06-15-2019 Chronic Other nervous system disorders (1 source) Other chronic pain; Translations: [OTHER CHRONIC PAIN] Onset: 08-03-19 Chronic Other nervous system disorders (20 sources) Chronic pain; Translations: [Other chronic pain] Onset: 01-27-2001-26-2025 Chronic Other nervous system disorders (6 sources) Neuropathy; Translations: [Polyneuropathy, unspecified] Onset: 01-27-2004-02-2024 Chronic Other nervous system disorders (1 source) Polyneuropathy, unspecified Chronic Other nervous system disorders (4 sources) Chiari malformation type I; Translations: [Compression of brain] Onset: 01-27-2010-27-2023 Chronic Other nervous system disorders (2 sources) Syringomyelia and syringobulbia; Translations: [Syringomyelia and syringobulbia] 10-27-2023 Chronic Other nervous system disorders (3 sources) Demyelinating disease of central nervous system; Translations: [Demyelinating disease of central nervous system, unspecified] 10-27-2023 Chronic Other nervous system disorders (2 sources) Cerebral cyst; Translations: [Cerebral cysts] 05-06-2024 Chronic Other nervous system disorders (1 source) Cerebral cysts; Translations: [Brain cyst] Onset: 06-10-20 Chronic Other nervous system disorders (20 sources) [...] sensation] 03-23-2024 Episodic Other nervous system disorders (3 sources) Tremor; Translations: [Tremor, unspecified] Onset: 01-27-2004-02-2024 Episodic Other nervous system disorders (4 sources) Benign fasciculation-cramp syndrome; Translations: [Fasciculation] 06-07-2024 Episodic Other nervous system disorders (8 sources) Paresthesia of left upper limb; Translations: [Paresthesia of skin] 01-03-2025 Episodic Other non-traumatic joint disorders (2 sources) Pain in left shoulder; Translations: [Left shoulder pain] 03-09-2025 Episodic Other nutritional; endocrine; and metabolic disorders [...] trunk] Onset: 04-20-20 Episodic Other skin disorders (3 sources) Nodule of subcutaneous tissue of abdominal wall; Translations: [Localized swelling, mass and lump, trunk] Onset: 01-27-2004-20-2024 Episodic Other upper respiratory disease (20 sources) Allergic rhinitis; Translations: [Allergic rhinitis, unspecified] Onset: 01-27-2004-02-2024 Chronic Other upper respiratory disease (1 source) Allergic rhinitis, unspecified Onset: 01-10-20 Resolved : 01-10-20 Chronic Other upper respiratory disease (5 sources) Nasal discharge; Translations: [Other specified disorders of nose and nasal sinuses] 09-29-2024 Episodic Other upper respiratory disease (2 sources) Other specified disorders of nose and nasal sinuses; Translations: [Other disease of nasal cavity and sinuses] 09-29-2024 Episodic Other upper respiratory infections (12 sources) Acute sinusitis, unspecified; Translations: [Laryngitis] Episodic Prolapse of female genital organs (20 sources) Cystocele; Translations: [Midline cystocele] Onset: 09-07-19 Resolved : 09-30-19 24 09-06-2020 Chronic Residual codes; unclassified (4 sources) Hypersomnia; [...] movement disorder] 09-29-2024 Chronic Residual codes; unclassified (4 sources) Periodic leg movements of sleep ; [...] disc disorders; other back problems (20 sources) Spinal stenosis, site unspecified; Translations: [Nerve [...] Problem Classification Problem Date Documented Date Episodic/Chronic Nonmalignant breast conditions (16 sources) Mastodynia; Translations: [Heterogeneously dense breast composition] [...] Resolved: 01-28-2022 Episodic Other nervous system disorders (9 sources) Fasciculation; Translations: [Abnormal involuntary movements] Onset: 03-23-2024 Episodic Other nervous system disorders (1 source) Unspecified disturbances of skin sensation; Translations: [Disturbance of skin sensation] Onset: 03-23-2024 Episodic Other nervous system disorders (1 source) Abnormal reflex; Translations: [Hyperreflexia] Onset: 03-23-2024 Episodic Other non-traumatic joint disorders (6 sources) [...] Test Name Value Interpretation Reference Range Facility [facility] 03-08-2025 CNOV Office Visit (NHMNS2 ) EDNA SULTANA ([id number]) 1965 F Date Time Provider Department 03/08/25 1:00 PM YANNICK HARPER [facility] During your visit today, we recorded the following information about you: Pulse Blood pressure Weight 89/minute 167/90 67 kg Yannick Harper DO 03/08/2025 2:43 PM Signed Headache and Facial Pain Section [facility] [place] Date: March 08, 2025 Patient Name: Edna Sultana Referring physician: Janna Gilman [address] [place] [id number] Reason for Evaluation: Headaches HPI: Edna Sultana is a 59 YO F w/ benign fasciculation syndrome, PLM, and bilateral posterior vitreous detachment w/ reported chronic photophobia, sinus congestion, chronic back pain presenting for new patient evaluation of visual symptoms. Referred by Dr. Gilman (last seen 03/23/2024), previously following for evaluation of fasciculations/burning pain in b/l LE. Workup other unremarkable with MRI brain 06/2024 noting unchanged T2/ FLAIR hyperintense lesion in anterior R temporal lobe unchanged from 12/09/23. > Other workup includes MRI C/T spine w/o evidence of demyelination or cord compression; mild degenerative changes in C spine. Lab noted mild B12 deficiency; attempted supplementation without improvement of fasciculations. B1, B6 WNL. Celiac, Ceruloplasmin, Copper, Zinc, Immunofixation/[place]/L ambda. 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 04/2023 L eye started w/ curved pattern/white flashes and floaters; no headache lasted over multipled hours or days and confirmed by eye Appears per 10/2024 discussion - patient began reporting pulsatile changes in R eye floaters constant and possibly associated w/ heart rate/blood pressure. Prompting headache consultation. Patient reports occasional mild headaches about 1x month throughout her entire life relatively unchanged. She reports variable distribution sometimes unilateral, occasionally holocephalic. Dull ache mild severity 4/10 for a few hours. Denied associated migrainous features but does endorse chronic photophobia and chronic congestion without phonophobia or nausea. Typically resolves w/ sudafed and ibuprofen (roughly 2x per month). Relatively unchanged over last 8-10 years. No preceeding visual auras or prodromal symptoms. No clear triggers. Describes L eye posterior vitreous detachment occurring 04/2023 confirmed by Optho and R eye posterior vitreous detachment occurring 04/2024. Reports rather abrupt onset of peripheral crescent shaped pattern with substantial increase in floaters out of corresponding eye constant and unrelenting for days prompting initial evaluation. No associated headache. She reports in September 2024 began noticing new visual symptoms with some difficulty describing. Reports monocular R eye floaters began changing hue of their color becoming more dark and that this change seemed to correlate with pulse of her heart rate or during times of elevated blood pressure. She reports this is constant and chronic since September 2024 and that she has become used to this phenomena to the poin that she sometimes forgets its there. No associated headache and no clear episodic nature to these symptoms. She also endorses seeing long squiggles in all directions out of R eye particularly evident when looking straight ahead, at a light or in the vazquez. She states they resemble little snakes or parasites but knows they probably are not in actuality. Additional history: She reports 2 episodes of prior migraine throughout her life each preceeded by reported visual aura described as zigzag rainbow pattern which resolved within a few hours. She recounts a headache following these two episodes but does not recall any other specifics. States first occurred around age 31 while staring at computer screen and the other many years ago prompting an ER visit to r/o stroke. She reports being seen by Ophthalmology in 11/2024 but does not recall specifics - unable to find results; occurred OSH. 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 Normal [facility] Laboratory - Chemistry and C hemistry - challengeOrdered By: Yannick Velázquez on 02-08-2025 Bilirubin Ql (U) Negative [facility] Glucose (U) [Mass/Vol] Negative [facility] Ketones Ql (U) 1.000 [facility] pH (U) 7.5 [pH] [facility] Specific gravity (U) [Rel density] 1.005 [facility] Urobilinogen (U) [Mass/Vol] Negative [facility] Laboratory - Specimen inform ationOrdered By: Yannick Velázquez on 02-08-2025 Appearance (U) clear [facility] Color (U) yellow [facility] Laboratory - UrinalysisOrder ed By: Yannick Velázquez on 02-08-2025 Leukocyte esterase Test strip Ql (U) Negative [facility] Nitrite Ql (U) Negative [facility] Protein Ql (U) 15 [facility] No Panel InformationOrdered By: Yannick Velázquez on 02-08-2025 Urine Occult Blood Negative [facility] [place] [address] Ultrasound Report Signed Patient: EDNA SULTANA MR#: [id number] : 1965 Acct:[id number] Age/Sex: 59 / F ADM Date: 01/18/25 Loc: US Attending Dr: Reza Gorman M.D. Ordering Physician: Reza Gorman M.D. Date of Service: 01/18/25 Procedure(s): US thyroid Accession Number(s): [id number] cc: YANNICK VELÁZQUEZ; Reza Gorman M.D. [place] [id number] Patient Name: EDNA SULTANA MRN: TBH:[id number] date: 1965 Sex: F Assigned Patient Location: US Current Patient Location: US Accession/Order Number: [id number] Exam Date: 01/18/2025 08:47 Report Date: 01/18/2025 09:07 At the request of: REZA GORMAN MD Procedure: US thyroid THYROID ULTRASOUND COMPARISON: 07/21/2024 and 07/14/2023 CLINICAL DATA: Follow-up thyroid nodularity The right thyroid lobe measures 5.3 x 2.3 x 1.3 cm . The left lobe measures 5.8 x 1.8 x 1.7 cm. The isthmus measures 2 - 3 mm . Thyroid echotexture is mildly heterogeneous. At the superior pole on the right, there is still an irregular hypoechoic nodular area measuring 6 x 4 x 6 mm, not significantly changed. 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 It measures 20 x 9 x 17 mm. This is stable. Inferior to it is a hypoechoic nodule with some echogenic foci measuring 4 x 4 x 5 mm, not significantly changed. At the mid to lower pole laterally, there is a heterogeneous hypoechoic nodule with echogenic foci measuring 8 x 6 x 4 mm. This might be minimally larger. It was better seen on the July 2023 comparison. Close to it is another hypoechoic nodule measuring 6 x 4 x 4 mm which is stable. At the left isthmus, a small hypoechoic nodule measuring 6 x 3 x 2 mm is again seen. US/US thyroid IMPRESSION: SIMILAR BILATERAL THYROID NODULARITY. CONTINUED FOLLOW-UP IS SUGGESTED. Impression dictated by: Poppy Ashley M.D. 01/18/2025 9:07 AM Dictation Location: [place] [address] Electronically authenticated by: [id number] Y Date: 01/18/2025 09:07 Dictated By: Poppy Ashley M.D. Signed By: 01/18/25908 DD/ 6 TD/TT: Timber Sizer Operator: [facility] Radiology, Radiologist, MD - 01/18/2025 [place] [address] Ultrasound Report Signed Patient: EDNA SULTANA MR#: [id number] : 1965 Acct:[id number] Age/Sex: 59 / F ADM Date: 01/18/25 Loc: US Attending Dr: Reza Gorman M.D. Ordering Physician: Reza Gorman M.D. Date of Service: 01/18/25 Procedure(s): US thyroid Accession Number(s): [id number] cc: YANNICK VELÁZQUEZ; Reza Gorman M.D. [place] [id number] Patient Name: EDNA SULTANA MRN: [facility]:[id number] date: 1965 Sex: F Assigned Patient Location: US Current Patient Location: US Accession/Order Number: [id number] Exam Date: 01/18/2025 08:47 Report Date: 01/18/2025 09:07 At the request of: REZA GORMAN MD Procedure: US thyroid THYROID ULTRASOUND COMPARISON: 07/21/2024 and 07/14/2023 CLINICAL DATA: Follow-up thyroid nodularity The right thyroid lobe measures 5.3 x 2.3 x 1.3 cm . The left lobe measures 5.8 x 1.8 x 1.7 cm. The isthmus measures 2 - 3 mm . Thyroid echotexture is mildly heterogeneous. At the superior pole on the right, there is still an irregular hypoechoic nodular area measuring 6 x 4 x 6 mm, not significantly changed. 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 It measures 20 x 9 x 17 mm. This is stable. Inferior to it is a hypoechoic nodule with some echogenic foci measuring 4 x 4 x 5 mm, not significantly changed. At the mid to lower pole laterally, there is a heterogeneous hypoechoic nodule with echogenic foci measuring 8 x 6 x 4 mm. This might be minimally larger. It was better seen on the July 2023 comparison. Close to it is another hypoechoic nodule measuring 6 x 4 x 4 mm which is stable. At the left isthmus, a small hypoechoic nodule measuring 6 x 3 x 2 mm is again seen. US/US thyroid IMPRESSION: SIMILAR BILATERAL THYROID NODULARITY. CONTINUED FOLLOW-UP IS SUGGESTED. Impression dictated by: Poppy Ashley M.D. 01/18/2025 9:07 AM Dictation Location: [place] [address] Electronically authenticated by: [id number] Y Date: 01/18/2025 09:07 Dictated By: Poppy Ashley M.D. Signed By: 01/18/25 0909 DD/ 6 TD/TT: Timber Sizer Operator: [facility] Radiology Study observation (narrative) [facility] US Thyroid glandOrdered By: Radiologist Radiology on 01-18-2025 [facility] Work Phone: CT CARDIAC SCORING WO IV CON TRASTon [...] STRUCTURES ARE THE SOLE RESPONSIBILITY OF THE [employer] PICKER SUBMITTING THE ORIGINAL REPORT (NOT THIS ADDENDUM) Signed by: Ashish Hampton 12/02/2024 4:05 PM -------- ORIGINAL REPORT -------- Dictation workstation: [id number] Interpreted By: Florentin Carl, STUDY: CT CARDIAC SCORING WO IV CONTRAST; 12/01/2024 6:07 pm INDICATION: Signs/Symptoms:screeni ng. COMPARISON: None. ACCESSION NUMBER(S): [id number] ORDERING CLINICIAN: YANNICK VELÁZQUEZ TECHNIQUE: Using prospective [...] coronary heart disease events. According to the [place] [employer] Clinical Expert Consensus [...] modify other non-lipid coronary risk factors. Reference: [place] P et al. Circulation. 2007; 115:402-426 Reading Punchboard Stuffer: Dr. Florentin Carl, Date: 12/02/2024 3:53 pm Signed by: Florentin Carl 12/02/2024 3:53 PM Dictation workstation: [id number] [facility] POCT , urineon 10-06 Beta HCG ( test) Ql (U) Negative [facility] Interpretation and review of laboratory results Normal [facility] Surgical Pathologyon 025 Surgical Pathology Normal [facility] Comment on above: Result Comment: [facility] [address] [place] [address] Surgical Pathology Consultation Patient Name:EDNA SULTANA:1965 (Age: 59)Gender:FTaken:10/26/2024Reported:11/03/2024Physician(s):Katia Whitt M.D. ([phone])Copy To: Rec. #:[id number]: #[id number] Final Pathologic Diagnosis 1. Endocervical curettings: Negative for dysplasia 2. Endometrial biopsy: Strips and fragments of endometrial lining without atypia Cervical mucosa negative for dysplasia No intact endometrial glands and stroma for microscopic evaluation Report Electronically Signed Out leathak/11/03/2024Jonna Mei MD Interpretation performed at [facility], [address] [place] [address], License number: [id number]. Clinical History Thickened endometrium R93.89. Gross Description 1. Received in formalin labeled, KAYY, ECC is a plastic metal brush with is a pale-roldan mucoid material mixed with pale-roldan friable scant soft tissue fragments, 1.3 x 0.5 x 0.1 cm in aggregate. The specimens are filtered and submitted in a single cassette. (1, leatha, [id number], m1) TB 2. Received in formalin labeled, [...] in formalin before processin.5 hours (1, ns, [id number], m2) TB tgb/10/27/2024RG Specimen(s) Received 1: Endocervical curettings 2: Endometrial biopsy Fee Codes(s): 1; 48354 2; 84167 MAMM DIAGNOSTIC UNILAT LT W CADon 07-01-2024 MAMM DIAGNOSTIC UNILAT LT W CAD MAMM DIAGNOSTIC UNILAT LT W CAD EDNA HERNANDEZRIGHT 1965 [id number], [id number] EXAM: MAMM DIAGNOSTIC UNILAT LT W CAD, [...] 2:17 PM 1 c MBI CONT Normal [facility] US BREAST LT LIMITEDon 07-01 US BREAST LT LIMITED US BREAST LT LIMITE D EDNA SULTANA 1965 [id number], [id number] EXAM: MAMM DIAGNOSTIC UNILAT LT W CAD, [...] 2:17 PM 1 c MBI CONT Normal [facility] MR lumbar spine wo conon MR lumbar spine wo con [facility] [place] [address] [place] [address] MRI Report Signed Patient: Edna Sultana MR#: [id number] : 1965 Acct:[id number] Age/Sex: 58 / F ADM Date: 06/24/24 Loc: [facility] Room: Type: [facility] Attending Dr: Ivy Garcia APRN Copies to: [...] stenosis. Impression dictated by: Pranay Thomson Jr., D.ORony06/24/2024 11:02 AM Dictation Location: [place] [address] Transcribed By: [facility] 06/24/24 1102 Dictated By: Pranay Thomson Jr, DO 06/24/24 1059 Signed By: 06/24/24 1102 Normal [facility] US PELVIC WITH TRANSVAGINALo n [...] Quinn MD on 06/18/2024 7:00 AM Normal [facility] NM MBI LOCALIZATION LMTD ARE Aon 06-11-2024 NM MBI LOCALIZATION LMTD AREA NM MBI LOCALIZATION LMTD AREA EDNA SULTANA 1965 [id number] EXAM: NM MBI LOCALIZATION LMTD AREA, 06/11/2024 2:03 PM CLINICAL INDICATIONS: Heterogeneously dense tissue of both breasts on mammography, Supplemental screening for dense breast tissue COMPARISON: Screening mammogram 01/07/2024. No previous MBI TECHNICAL: The patient was injected intravenously with 8.1 mCi Tc Sestamibi. Dynamic imaging acquisition was initiated within 5 minutes using a [employer] dual head, planar, solid state digital system [...] 06/11/2024 3:05 PM 1 MBI CONT Normal [facility] MR Brain WO and W contrast I Von 06-10-2024 IMPRESSION: Unchanged examination. Nonenhancing T2/FLAIR hyperintense lesion in the anterior right temporal lobe is unchanged from 12/09/2023. Timber Sizer Operator: PSCB Transcribe Date/Time: Jun 10 2024 11:32A Dictated by : YAEL HOUSE MD This examination was interpreted and the report reviewed and electronically signed by: YAEL HOUSE MD on Jun 10 2024 11:42AM [facility] DIVISION OF RADIOLOGY * * *Final Report* * * DATE OF EXAM: Jun 10 2024 11:12AM [facility] 0295 - MRI BRAIN WO/W IVCON [...] tissues are unremarkable. DIVISION OF RADIOLOGY Provider, [facility] - 06/10/2024 * * *Final [...] right temporal lobe is unchanged from 12/09/2023. Timber Sizer Operator: MICHAEL Transcribe Date/Time: Jun 10 2024 11:32A Dictated by : YAEL HOUSE MD This examination was interpreted and the report reviewed and electronically signed by: YAEL HOUSE MD on Jun 10 2024 11:42AM EST [facility] Radiology Study observation (narrative) [facility] MR Brain WO and W contrast I VOrdered By: Ccf Provider on 06-10-2024 [facility] MRI BRAIN WO/W IVCONon 06-10 MRI BRAIN WO/W IVCON * * *Final [...] and extracranial soft tissues are unremarkable. IMPRESSION: Unchanged examination. Nonenhancing T2/FLAIR hyperintense lesion in the anterior right temporal lobe is unchanged from 12/09/2023. Timber Sizer Operator: PSCB Transcribe Date/Time: Jun 10 2024 11:32A Dictated by : YAEL HOUSE MD This examination was interpreted and the report reviewed and electronically signed by: YAEL HOUSE MD on Jun 10 2024 11:42AM EST [id number] Normal [facility] DEXA SCAN CENTRAL SKELETALon 05-31-2024 DEXA SCAN [...] Arreguin MD on 05/31/2024 3:41 PM Normal [facility] URINALYSISon 05-18-2024 Bilirubin Ql (U) Negative Normal NEG [facility] Comment on above: Performed By: #### U A #### [facility] ([id number]) [address] [place] [address] BLOOD/HGB Negative Normal NEG [facility] Comment on above: Performed By: #### U A #### [facility] ([id number]) [address] [place] [address] Color (U) YELLOW Normal YELLOW [facility] Comment on above: Performed By: #### U A #### [facility] ([id number]) [address] [place] [address] Glucose Ql (U) Negative Normal NEG [facility] Comment on above: Performed By: #### U A #### [facility] ([id number]) [address] [place] [address] Ketones Ql (U) Negative Normal NEG [facility] Comment on above: Performed By: #### U A #### [facility] ([id number]) [address] [place] [address] Leukocyte esterase Test strip Ql (U) Negative Normal NEG [facility] Comment on above: Performed By: #### U A #### [facility] ([id number]) [address] [place] [address] Nitrite Ql (U) Negative Normal NEG [facility] Comment on above: Performed By: #### U A #### [facility] ([id number]) [address] [place] [address] pH (U) 6.5 [pH] Normal 5.0-8.5 [facility] Comment on above: Performed By: #### U A #### [facility] ([id number]) [address] [place] [address] Protein Ql (U) Negative Normal NEG [facility] Comment on above: Performed By: #### U A #### [facility] ([id number]) [address] [place] [address] Specific gravity (U) [Rel density] 1.013 Normal 1.003-1.035 [facility] Comment on above: Performed By: #### U A #### [facility] ([id number]) [address] [place] [address] TURBIDITY CLEAR Normal CLEAR [facility] Comment on above: Performed By: #### U A #### [facility] ([id number]) [address] [place] [address] Urobilinogen (U) [Mass/Vol] mg/dL Normal <1.1 [facility] Comment on above: Performed By: #### U A #### [facility] ([id number]) [address] [place] [address] URINE CULTUREon 05-18-2024 Bacteria identified Cx Nom (U) CULTURE RESULTS NO GROWTH AT <1000 CFU/mL Normal [facility] Comment on above: Performed By: #### 6 30-4 #### [facility] ([id number]) [address] [place] [address] URINE CULTURE, ROUTINEon Bacteria identified Cx Nom [...] Cx Nom (U) Performed at: [facility] Bacteria identified Cx Nom (U) [address] [place], [place] [id number] [facility] Bacteria identified Cx Nom (U) Supervisor Carding: Tha iJmenez PhD, Phone: [phone] [facility] Ambulatory Visit Summaryon 1 Ambulatory Visit Summary [...] choosing us for your care. Normal [facility] Basophil percentageon 2023 Basophil percentage 99 ug/dL 80-155 [facility] Comment on above: This test was devavio ped, and its performance characteristics determined by the [facility] Department of Pathology and Laboratory Medicine. It has not been cleared or approved by the FDA. The [facility] Department of Pathology and Laboratory Medicine is regulated under CLIA as qualified to perform high-complexity testing. This test is used for clinical purposes. It should not be regarded as investigational or for research. CELIAC SCREENon 03-23-2024 GLIAD DEAMIDATED IGA QUAL Negative Normal Negative, Test not Indicated [facility] Comment on above: Order Comment: Kraig sandoval Type: BLOOD SPECIMEN Ordering Facility: [facility] Address: [address] [place] [address] Result Comment: This is used as an aid in diagnosis of celiac disease. Clinical correlation is required. The following results were obtained with an ZuzuChe QUANTA Lite Gliadin IgA ANGELA Gliadin. Gliadin IgA values obtained with different manufacturers' assay methods may not be used interchangeably. The magnitude of the reported IgA levels cannot be correlated to an endpoint titer. Performed By: #### L [id number] #### [facility] CLIA [id number] [address] [place] [address] [place] Gliadin peptide IgA Qn (S) 4 Units Normal <20 [facility] Comment on above: Order Comment: Kraig sandoval Type: BLOOD SPECIMEN Ordering Facility: [facility] Address: [address] [place] [address] Performed By: #### L [id number] #### [facility] CLIA [id number] [address] [place] [address] [place] INTERPRETATION No serological evidence of celiac disease, however, if celiac disease is clinically suspected and patient is not on gluten-free diet, histological diagnosis may be considered. HLA testing may help with risk assessment. Normal [facility] Comment on above: Order Comment: Kraig sandoval Type: BLOOD SPECIMEN Ordering Facility: [facility] Address: [address] [place] [address] Performed By: #### L [id number] #### [facility] CLIA [id number] [address] [place] [address] [place] TRANSGLUTAMINASE IGA ABS INTERPRETATION Negative Normal Negative [facility] Comment on above: Order Comment: Kraig sandoval Type: BLOOD SPECIMEN Ordering Facility: [facility] Address: [address] [place] [address] Result Comment: The following results were obtained with ZuzuChe QUANTA Lite R h-tTG IgA ANGELA.???R h-tTG IgA values obtained with different manufacturers' assay methods may not be used interchangeably. The magnitude of the reported IgA levels cannot be corelated to an endpoint???concentration. This is used as an aid in diagnosis of celiac disease. Clinical correlation is required. Performed By: #### L [id number] #### [facility] CLIA [id number] [address] [place] [address] tTG IgA Qn (S) <2 Normal <4 [facility] Comment on above: Order Comment: Speci men Type: BLOOD SPECIMEN Ordering Facility: [facility] Address: [address] [place] [address] Performed By: #### L [id number] #### [facility] CLIA [id number] [address] [place] [address] OF [place] CNOVon 03-23-2024 CNOV Office Visit (NENMMN ) EDNA SULTANA ([id number]) 1965 F Date Time Provider Department 03/23/24 3:00 PM JANNA GILMAN [facility] During your visit today, we recorded [...] which included preparing to see the patient, [id number] patient care, completing clinical documentation, obtaining and/or reviewing separately obtained history, performing a medically appropriate examination, counseling and educating the patient/family/caregiv er, and ordering medications, tests, or procedures. Janna Gilman MD cc: Abiodun Castano [id number] [facility] [address] Edna Rodriguezht [id number] [address] [facility] [address] Referring Provider: ABIODUN CASTANO [[id number]] Allergies As of Date: 03/23/2024 Noted Allergy Reaction ADHESIVE 05/20/2006 9 - Itching 2 - Rash 7 - Swelling ADHESIVE TAPE-SILICONES 09/06/2020 2 - Rash 4 - Hives FLUOROURACIL-ADHESIVE BANDAGE 12/16/2018 2 - Rash Date Reviewed: 03/23/2024 Reviewed by: Jaci Burton OCCA - (more content not included)... Normal [facility] COPPER BLOODon 03-23-2024 Copper [Mass/Vol] 99 ug/dL Normal 80-155 [facility] Comment on above: Order Comment: Speci men Type: BLOOD SPECIMEN Ordering Facility: [facility] Address: [address] [place] [address] Result Comment: This test was developed, and its performance characteristics determined by the [facility] [facility] Department of Pathology and Laboratory Medicine. It has not been cleared or approved by the FDA. The [facility] Department of Pathology and Laboratory Medicine is regulated under CLIA as qualified to perform high-complexity testing. This test is used for clinical purposes. It should not be regarded as investigational or for research. Performed By: #### C LAXMI, 5763-8 #### [facility] CLIA [id number] [address] [place] [address] [place] Ceruloplasmin SerPl-mCncon 0 03-23-2024 Ceruloplasmin [Mass/Vol] 26 mg/dL Normal 16-45 [facility] Comment on above: Order Comment: Speci men Type: BLOOD SPECIMEN Ordering Facility: [facility] Address: [address] [place] [address] Performed By: #### 2 064-4 #### [facility] CLIA [id number] [address] [place] [address] OF [place] IMMUNOFIXATION SCREEN, SERUM on 03-23-2024 MPA RESULT No M protein is identified. Normal No M protein is identified. [facility] Comment on above: Order Comment: Speci men Type: BLOOD SPECIMEN Ordering Facility: [facility] Address: [address] [place] [address] Performed By: #### I FES #### [facility] CLIA [id number] [address] [place] [address] [place] STAFF REVIEW (MPA) Reviewed by Dr. Ania Melo MD [facility] Comment on above: Order Comment: Speci men Type: BLOOD SPECIMEN Ordering Facility: [facility] Address: [address] [place] [address] Performed By: #### I FES #### [facility] CLIA [id number] [address] [place] [address] [place] IgA SerPl-mCncon 03-23-2024 IgA [Mass/Vol] 242 mg/dL Normal 70-400 [facility] Comment on above: Order Comment: Speci men Type: BLOOD SPECIMEN Ordering Facility: [facility] Address: [address] [place] [address] Performed By: #### 2 458-8 #### [facility] CLIA [id number] [address] [place], [place] [id number] [address] [place] IgA [Mass/volume] in Serum o r Plasmaon 03-23-2024 IgA [Mass/Vol] 242 mg/dL 70-400 [facility] Immunoglobulin light chains. kappa.free [Mass/volume] in Serumon 03-23-2024 Immunoglobulin light chains.kappa.free (S) [Mass/Vol] 10.8 mg/L 3.3-19.4 [facility] Comment on above: Rarely, increased se rum free light chains levels may not be detected or accurately quantified due to prozone phenomenon or in high viscosity samples using this immunoturbidimetric assay. Correlation with other laboratory results and clinical findings is recommended. The [place] Free Light Chain was performed using the Binding Site Optilite immunoturbidimetric method. Result obtained with different assay methods or kits cannot be used interchangeably. Immunoglobulin light chains. kappa.free/Immunoglobulin light chains.lambda.free [Sharon 03-23-2024 Immunoglobulin light chains.kappa.free/Imm unoglobulin light chains.lambda.free (S) [Mass ratio] 1.30 0.26-1.65 [facility] Immunoglobulin light chains. lambda.free [Mass/volume] in Serum or Plasmaon 03-23-2024 Immunoglobulin light chains.lambda.free [Mass/Vol] 8.3 mg/L 5.7-26.3 [facility] Comment on above: Rarely, increased se [...] chains.kappa.free (S) [Mass/Vol] 10.8 mg/L Normal 3.3-19.4 [facility] Comment on above: Order Comment: Speci men Type: BLOOD SPECIMEN Ordering Facility: [facility] Address: [address] [place] [address] Result Comment: Rare ly, increased serum free light chains levels may not be detected or accurately quantified due to prozone phenomenon or in high viscosity samples using this immunoturbidimetric assay. Correlation with other laboratory results and clinical findings is recommended. The [place] Free Light Chain was performed using the Binding Site Optilite immunoturbidimetric method. Result obtained with different assay methods or kits cannot be used interchangeably. Performed By: #### K LFRS #### [facility] CLIA [id number] [address] [place] [address] [place] Immunoglobulin light chains.kappa/Immunogl obulin light chains.lambda (S) [Mass ratio] 1.30 Normal 0.26-1.65 [facility] Comment on above: Order Comment: Speci men Type: BLOOD SPECIMEN Ordering Facility: [facility] Address: [address] [place] [address] Performed By: #### K LFRS #### [facility] CLIA [id number] [address] [place] [address] [place] Immunoglobulin light chains.lambda.free [Mass/Vol] 8.3 mg/L Normal 5.7-26.3 [facility] Comment on above: Order Comment: Speci men Type: BLOOD SPECIMEN Ordering Facility: [facility] Address: [address] [place] [address] Result Comment: Rare ly, increased serum free [...] cannot be used interchangeably. Performed By: #### K LFRS #### [facility] CLIA [id number] [address] [place] [address] [place] No Panel Informationon 03-23 Gliadin (Deamidated) IgA Ab Interp Negative Negative, Test not Indicated [facility] Comment on above: This is used as an a id in diagnosis of celiac disease. Clinical correlation is required.The following results were obtained with an [employer] Mode QUANTA Lite Gliadin IgA ANGELA Gliadin. Gliadin IgA values obtained with different manufacturers' assay methods may not be used interchangeably. The magnitude of the reported IgA levels cannot be correlated to an endpoint titer. Miscellaneous Test Comment [facility] Tissue Transglutaminase IgA Interp Negative Negative [facility] Comment on above: The following result [...] zinc measurementon Zinc [Mass/Vol] 72 ug/dL 60-120 [facility] Comment on above: This test was leah green, and its performance characteristics determined by the [facility] Department of Pathology and Laboratory Medicine. It has not been cleared or approved by the FDA. The [facility] Department of Pathology and Laboratory Medicine is regulated under CLIA as qualified to perform high-complexity testing. This test is used for clinical purposes. It should not be regarded as investigational or for research. Serum gliadin peptide IgA an tibody assay (units/volume)on 03-23-2024 Gliadin peptide IgA Qn (S) 4 Units <20 [facility] Serum or plasma ceruloplasmi n measurement (mass/volume)on 03-23-2024 Ceruloplasmin [Mass/Vol] 26 mg/dL 16-45 [facility] Serum tissue transglutaminas e (tTG) IgA antibody assay (units/volume)on 03-23-2024 tTG IgA Qn (S) <2 U/mL <4 [facility] Zinc SerPl-mCncon 03-23-2024 Zinc [Mass/Vol] 72 ug/dL Normal 60-120 [facility] Comment on above: Order Comment: Speci men Type: BLOOD SPECIMEN Ordering Facility: [facility] Address: [address] [place] [address] Result Comment: This test was developed, and its performance characteristics determined by the [facility] Department of Pathology and Laboratory Medicine. It has not been cleared or approved by the FDA. The [facility] Department of Pathology and Laboratory Medicine is regulated under CLIA as qualified to perform high-complexity testing. This test is used for clinical purposes. It should not be regarded as investigational or for research. Performed By: #### C LAXMI, 5763-8 #### [facility] CLIA [id number] [address] [place] [address] [place] MAMM SCREENING BILATERAL W C hoist operator 01-07-2024 MAMM SCREENING BILATERAL W CAD MAMM [...] Castillo MD on 01/07/2024 2:10 PM 1 c AMAYA DE JESUS IM Normal [facility] MR Brain WO and W contrast I [...] toxic/metabolic insult is also within the differential. Timber Sizer Operator: MICHAEL Transcribe Date/Time: Dec 09 2023 11:06A Dictated by : MARY COWART MD This examination was interpreted and the report reviewed and electronically signed by: MARY COWART MD on Dec 09 2023 11:11AM [facility] DIVISION OF RADIOLOGY * * *Final Report* * * DATE OF EXAM: Dec 09 2023 11:06AM [facility] 0295 - MRI BRAIN WO/W IVCON [...] tissues are unremarkable. DIVISION OF RADIOLOGY Provider, [facility] - 12/09/2023 * * *Final Report* * * DATE OF EXAM: Dec 09 2023 11:06AM [facility] 0295 - MRI BRAIN WO/W IVCON [...] toxic/metabolic insult is also within the differential. Timber Sizer Operator: MICHAEL Transcribe Date/Time: Dec 09 2023 11:06A Dictated by : MARY COWART MD This examination was interpreted and the report reviewed and electronically signed by: MARY COWART MD on Dec 09 2023 11:11AM EST [facility] MR Brain WO and W contrast I VOrdered By: Ccf Provider on 12-09-2023 [facility] MR Cervical spine WO and W c [...] vertebrae with counting from the craniocervical junction. Timber Sizer Operator: MICHAEL Transcribe Date/Time: Dec 09 2023 11:12A Dictated by : MARY COWART MD This examination was interpreted and the report reviewed and electronically signed by: MARY COWART MD on Dec 09 2023 11:20AM [facility] DIVISION OF RADIOLOGY * * *Final Report* * * DATE OF EXAM: Dec 09 2023 11:06AM [address] 0298 - MRI CERVICAL SPINE WO/W IVCON [...] or foraminal stenosis. DIVISION OF RADIOLOGY Provider, [facility] - 12/09/2023 * * *Final Report* [...] vertebrae with counting from the craniocervical junction. Timber Sizer Operator: PSCB Transcribe Date/Time: Dec 09 2023 11:12A Dictated by : MARY COWART MD This examination was interpreted and the report reviewed and electronically signed by: MARY COWART MD on Dec 09 2023 11:20AM EST [facility] MR Cervical spine WO and W c ontrast IVOrdered By: Ccf Provider on 12-09-2023 [facility] MR Thoracic spine WO and W c [...] discrepancies from the craniocervical and lumbosacral junctions. Timber Sizer Operator: PSCB Transcribe Date/Time: Dec 09 2023 11:20A Dictated by : MARY COWART MD This examination was interpreted and the report reviewed and electronically signed by: MARY COWART MD on Dec 09 2023 11:23AM [facility] DIVISION OF RADIOLOGY * [...] or foraminal stenosis. DIVISION OF RADIOLOGY Provider, [facility] - 12/09/2023 * * *Final Report* [...] discrepancies from the craniocervical and lumbosacral junctions. Timber Sizer Operator: MICHAEL Transcribe Date/Time: Dec 09 2023 11:20A Dictated by : MARY COWART MD This examination was interpreted and the report reviewed and electronically signed by: MARY COWART MD on Dec 09 2023 11:23AM EST [facility] Radiology Study observation (narrative) [facility] MR Thoracic spine WO and W c ontrast IVOrdered By: Ccf Provider on 12-09-2023 [facility] No Panel Informationon 12-08 Radiology Study observation (narrative) [facility] Automated epithelial cells c ount in urine sediment (number/area)on 10-25-2023 Epithelial cells Auto (Urine sed) [#/Area] NONE SEEN #/LPF NONE/RARE [facility] Automated leukocytes count i n urine sediment (number/area)on 10-25-2023 WBC Auto (Urine sed) [#/Area] 5-10 #/HPF 0-2 [facility] Automated urine specific gra vity by refractometryon 10-25-2023 Specific gravity Refractometry automated (U) [Rel density] 1.025 1.005-1.025 [facility] Bilirubin Auto test strip (U ) [Mass/Vol]on 10-25-2023 Bilirubin (U) [Mass/Vol] COLOR INTERFERENCE NEGATIVE [facility] Casts typing in urine sedime nt by light microscopyon 10-25-2023 Casts LM Nom (Urine sed) NONE SEEN #/LPF NONE SEEN [facility] Color Auto (U)on 10-25-2023 Color (U) ORANGE YELLOW [facility] Ketones Auto test strip (U) [Mass/Vol]on 10-25-2023 Ketones (U) [Mass/Vol] COLOR INTERFERENCE mg/dL NEGATIVE [facility] Mucus LM Ql (Urine sed)on Mucus Ql (Urine sed) NONE SEEN NONE SEEN [facility] Protein Auto test strip (U) [Mass/Vol]on 10-25-2023 Protein (U) [Mass/Vol] COLOR INTERFERENCE mg/dL NEG/TRACE [facility] Specific gravity Auto test s trip (U) [Rel density]on 10-25-2023 Specific gravity (U) [Rel density] CLEAR CLEAR [facility] Urine bacteria detection by automated methodon 10-25-2023 Bacteria Auto Ql (U) TRACE #/HPF NONE SEEN [facility] Urine glucose measurement by test strip (mass/volume)on 10-25-2023 Glucose Test strip (U) [Mass/Vol] COLOR INTERFERENCE mg/dL NEGATIVE [facility] Urine hemoglobin detection b y automated test stripon 10-25-2023 Hemoglobin Auto test strip Ql (U) COLOR INTERFERENCE NEGATIVE [facility] Urine nitrite detection by a utomated test stripon 10-25-2023 Nitrite Auto test strip Ql (U) COLOR INTERFERENCE NEGATIVE [facility] Urine sediment crystal ident ification by light microscopyon 10-25-2023 Crystals LM Nom (Urine sed) None Seen #/HPF None Seen [facility] Urine sediment leukocyte cou nt by microscopy (number/high power field)on 10-25-2023 WBC LM.HPF (Urine sed) [#/Area] 0-2 #/HPF NONE SEEN [facility] Urobilinogen Auto test strip (U) [Mass/Vol]on 10-25-2023 Urobilinogen (U) [Mass/Vol] COLOR INTERFERENCE EU/dL 0.2-1.0 [facility] pH Auto test strip (U)on pH (U) COLOR INTERFERENCE 5.0-9.0 [facility] - Chemistry and C hemistry - challengeon 10-07-2023 Cobalamin (Vitamin B12) [Mass/Vol] 913 pg/mL [facility] Ferritin [Mass/Vol] 87 ng/mL [facility] Neurosurgery Office/Clinic N oteon 05-27-2023 Neurosurgery Office/Clinic Note Chief Complaint Back follow up-MRI @ [facility] 03/29 Physical Exam Vitals & Measurements HR: [...] attempted healthier diet from her previously standard [place] diet and noted significant improvement in sense [...] prompted her to visit a neurosurgeon at [facility]. An MRI was ordered and no surgical [...] as A (more content not included)... Normal [facility] Urinalysis - AUTOMATEDon Appearance (U) clear [employer] Other Bilirubin Ql (U) Negative [employer] Other Color (U) light yellow [email or web address] Other Glucose Ql (U) Negative [employer] Other Hemoglobin Ql (U) trace-intact [email or web address] Other Ketones Ql (U) Negative [employer] Other Leukocyte esterase Test strip Ql (U) Negative [email or web address] Other Nitrite Ql (U) Negative [employer] Other pH (U) 7.5 [pH] [email or web address] Other Protein Ql (U) Negative [employer] Other Specific gravity (U) [Rel density] 1.015 [email or web address] Other Urobilinogen (U) [Mass/Vol] 0.2 mg/dL [email or web address] Other Urinalysis - AUTOMATED [email or web address] Other MR lumbar spine wo conon MR lumbar spine wo con [facility] [email or web address] Other MR lumbar spine wo con [facility] [email or web address] Other MR lumbar spine wo con [address] [facility] [email or web address] Other MR lumbar spine wo con [place] [address] [email or web address] Other MR lumbar spine wo con XRay Report [email or web address] Other MR lumbar spine wo con Signed [email or web address] Other MR lumbar spine wo con Patient: Edna Sultana MR#: [id number] [email or web address] Other MR lumbar spine wo con 2916 [email or web address] Other MR lumbar spine wo con : 1965 Acct:[id number] [email or web address] Other MR lumbar spine wo con Age/Sex: 56 / F ADM Date: 08/28/22 [email or web address] Other MR lumbar spine wo con Loc: MR Room: Type: [facility] [email or web address] Other MR lumbar spine wo con Attending Dr: Yannick Velázquez DO [email or web address] Other MR lumbar spine wo con Copies to: Yannick Velázquez DO [email or web address] Other MR lumbar spine wo con Ordering Provider: Yannick Velázquez DO [email or web address] Other MR lumbar spine wo con Date of Service: 08/28/22 [email or web address] Other MR lumbar spine wo con MR/MR lumbar spine wo con: M54.50 M48.0 M51.35 [email or web address] Other MR lumbar spine wo con ([id number]) XR/XR pre/post mri xray: PRE MRI OF THE LUMBAR [email or web address] Other MR lumbar spine wo con CLINICAL DATA: Chronic back pain with bilateral toe numbness. No injury. [email or web address] Other MR lumbar spine wo con PRE-MRI LUMBAR SPINE - 2 views [email or web address] Other MR lumbar spine wo con COMPARISON: 05/11/2020 [employer] Other MR lumbar spine wo con Standing AP and lateral views were obtained. 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 [email or web address] Other MR lumbar spine wo con There are no developing fractures. There is still slight retrolisthesis of L2 on L3, L3 on L4 and [email or web address] Other MR lumbar spine wo con L4 and L5. There is mild disc space narrowing and anterior endplate sclerosis at L2-3. There is [email or web address] Other MR lumbar spine wo con also some disc space narrowing at L3-4. Mild endplate spurring is seen. There is mid and lower [email or web address] Other MR lumbar spine wo con lumbar facet hypertrophy. The SI joints are intact. No paraspinal soft tissue abnormalities are [email or web address] Other MR lumbar spine wo con present. [email or web address] Other MR lumbar spine wo con XR/XR pre/post mri xray [email or web address] Other MR lumbar spine wo con IMPRESSION: [email or web address] Other MR lumbar spine wo con SCOLIOSIS AND DEGENERATIVE CHANGES, SIMILAR TO THE PRIOR. [email or web address] Other MR lumbar spine wo con MRI LUMBAR SPINE WITHOUT CONTRAST [email or web address] Other MR lumbar spine wo con Multiecho imaging in the axial and sagittal plane was performed without contrast. [email or web address] Other MR lumbar spine wo con There is levoscoliotic curvature. There is minimal retrolisthesis of L2 on L3, L3 on L4 and L4 and [email or web address] Other MR lumbar spine wo con L5. There are no acute compression fractures or marrow edema. There are degenerative endplate [email or web address] Other MR lumbar spine wo con signal changes, predominantly at L2-3 anteriorly. The conus medullaris terminates at T12-L1. The [email or web address] Other MR lumbar spine wo con lower imaged cord shows no significant findings. 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 No paraspinal soft tissue abnormalities are noted. [email or web address] Other MR lumbar spine wo con At T12-L1, there is no disc disease or stenosis. [email or web address] Other MR lumbar spine wo con At L1-2, there is slight disco-osteophytic bulging with mild thecal sac effacement. There is [email or web address] Other MR lumbar spine wo con asymmetric facet disease on the left. There is no significant foraminal stenosis. [email or web address] Other MR lumbar spine wo con At L2-3, there is prominent narrowing of the disc space. Disco-osteophytic bulging is noted. There [email or web address] Other MR lumbar spine wo con is increased signal at the annulus that may be a tear. There is bilateral facet hypertrophy with [email or web address] Other MR lumbar spine wo con joint effusion on the left. There is slight thickening of ligamentum flavum. There is continued [email or web address] Other MR lumbar spine wo con moderate thecal sac effacement. There is mild inferior foraminal encroachment. [email or web address] Other MR lumbar spine wo con At L3-4, there is narrowing of the disc space. Disco-osteophytic bulging is present. There is [email or web address] Other MR lumbar spine wo con bilateral facet disease and mild thickening of ligamentum flavum. There is mild to moderate thecal [email or web address] Other MR lumbar spine wo con sac effacement. There is mild to moderate right and moderate left foraminal impingement. [email or web address] Other MR lumbar spine wo con At L4-5, there is slight loss of disc height. Annular disc bulging is noted, slightly asymmetric [email or web address] Other MR lumbar spine wo con from the right parasagittal region extending laterally. There is increased signal at the annulus [email or web address] Other MR lumbar spine wo con that could be tear. There is bilateral facet hypertrophy and thickening of ligamentum flavum, [email or web address] Other MR lumbar spine wo con asymmetric on the left. Moderate central stenosis is again seen. There is moderate narrowing of [email or web address] Other MR lumbar spine wo con the neural foramen bilaterally. [email or web address] Other MR lumbar spine wo con At the lumbosacral junction, mild annular disc bulging is visualized. There is increased signal at [email or web address] Other MR lumbar spine wo con the annulus that could be tear. There is bilateral facet disease, greater on the left. There is [email or web address] Other MR lumbar spine wo con subtle thecal sac effacement. There is moderate neural foraminal narrowing, greater on the left. [email or web address] Other MR lumbar spine wo con LEVOSCOLIOSIS. [email or web address] Other MR lumbar spine wo con MULTILEVEL DISCOVERTEBRAL DEGENERATIVE CHANGES WITH ASSOCIATED CENTRAL AND FORAMINAL STENOSIS, [email or web address] Other MR lumbar spine wo con DESCRIBED. SIMILAR FINDINGS WERE PRESENT AT THE TIME OF THE COMPARISON. [email or web address] Other MR lumbar spine wo con Impression dictated by: Poppy Ashley M.D.08/28/2022 8:35 PM [email or web address] Other MR lumbar spine wo con Dictation Location: [place] [address] [employer] [place] Other MR lumbar spine wo con Transcribed By: PWS 08/28/222034 [facility] [place] Other MR lumbar spine wo con Dictated By: Poppy Ashley MD 08/28/222016 [email or web address] Other MR lumbar spine wo con Signed By: [email or web address] Other MR lumbar spine wo con 08/28/222034 [email or web address] Other XR ABD FLAT_UPon 07-04-2022 XR ABD FLAT_UP EXAMINATION: XR ABD FLAT_UP HISTORY: Slow transit constipation COMPARISON: No relevant comparison available. FINDINGS: BOWEL GAS PATTERN: Non-obstructed. FREE AIR: None. CALCIFICATIONS: None significant. 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 IMPRESSION: Nonobstructive bowel gas pattern with normal amount of stool Electronically authenticated by: YANNICK REA Date: 2022-07-04 07:30 Normal [facility] CULTURE URINEon 07-03-2022 CULTURE URINE Culture Observations : NO GROWTH. Normal [facility] Comment on above: Performed By: #### U RCX #### [facility] [address] [place] [address] Dr. Rene De Jesus UA RANDOMon 07-03-2022 Bilirubin Ql (U) Negative Normal NEGATIVE [facility] Comment on above: Performed By: #### U A #### [facility] [address] [place] [address] Dr. Rene De Jesus Clarity (U) CLEAR Normal CLEAR [facility] Comment on above: Performed By: #### U A #### [facility] [address] [place] [address] Dr. Rene De Jesus Color (U) LT. YELLOW Normal YELLOW [facility] Comment on above: Performed By: #### U A #### [facility] [address] [place] [address] Dr. Rene De Jesus Glucose Ql (U) Negative Normal NEGATIVE [facility] Comment on above: Performed By: #### U A #### [facility] [address] [place] [address] Dr. Rene De Jesus Hemoglobin Ql (U) Negative Normal NEGATIVE [facility] Comment on above: Performed By: #### U A #### [facility] [address] [place] [address] Dr. Rene De Jesus Ketones Ql (U) Negative Normal NEGATIVE [facility] Comment on above: Performed By: #### U A #### [facility] [address] [place] [address] Dr. Rene De Jesus LEUKOCYTES Negative Normal NEGATIVE [facility] Comment on above: Performed By: #### U A #### [facility] [address] [place] [address] Dr. Rene De Jesus Nitrite Ql (U) Negative Normal NEGATIVE [facility] Comment on above: Performed By: #### U A #### [facility] [address] [place] [address] Dr. Rene De Jesus pH (U) 8.0 [pH] Normal 5-9 [facility] Comment on above: Performed By: #### U A #### [facility] [address] [place] [address] Dr. Rene De Jesus SPEC GRAVITY 1.010 Normal 1.005-<=1.02 5 [facility] Comment on above: Performed By: #### U A #### [facility] [address] [place] [address] Dr. Rene De Jesus UA PROTEIN Negative Normal NEGATIVE/ TRACE [facility] Comment on above: Performed By: #### U A #### [facility] [address] [place] [address] Dr. Rene De Jesus Urobilinogen Qn (U) 0.2 {Raman'U}/dL Normal 0.2 - 1. 0 [facility] Comment on above: Performed By: #### U A #### [facility] [address] [place] [address] Dr. Reen De Jesus CBC AUTO DIFFon 03-20-2022 BASO # 0.0 103/ul Normal 0.0-0.1 [facility] Comment on above: Performed By: #### C BC #### [facility] [address] [place] [address] Dr. Rene De Jesus Basophils/100 WBC (Bld) 0.8 % Normal 0.2-2.0 [facility] Comment on above: Performed By: #### C BC #### [facility] [address] [place] [address] Dr. Rene De Jesus EO # 0.1 103/ul Normal 0.0-0.7 [facility] Comment on above: Performed By: #### C BC #### [facility] [address] [place] [address] Dr. Rene De Jesus Eosinophils/100 WBC (Bld) 1.3 % Normal 0.9-7.0 [facility] Comment on above: Performed By: #### C BC #### [facility] [address] [place] [address] Dr. Rene De Jesus Erythrocyte distribution width (RBC) [Ratio] 13.1 % Normal 11.0-15.0 [facility] Comment on above: Performed By: #### C BC #### [facility] [address] [place] [address] Dr. Rene De Jesus Hematocrit (Bld) [Volume fraction] 40.9 % Normal 36.0-48.0 [facility] Comment on above: Performed By: #### C BC #### [facility] [address] [place] [address] Dr. Rene De Jesus Hemoglobin (Bld) [Mass/Vol] 13.2 g/dL Normal 12.0-16.0 [facility] Comment on above: Performed By: #### C BC #### [facility] [address] [place] [address] Dr. Rene De Jesus IG # 0.01 10e3/ul Normal 0.00-0.03 [facility] Comment on above: Performed By: #### C BC #### [facility] [address] [place] [address] Dr. Rene De Jesus IG % 0.2 % Normal 0.0-0.5 [facility] Comment on above: Performed By: #### C BC #### [facility] [address] [place] [address] Dr. Rene De Jesus LYMPH # 2.4 103/ul Normal 1.2-3.8 [facility] Comment on above: Performed By: #### C BC #### [facility] [address] [place] [address] Dr. Rene De Jesus Lymphocytes/100 WBC (Bld) 44.5 % Normal 20.5-60.0 [facility] Comment on above: Performed By: #### C BC #### [facility] [address] [place] [address] Dr. Rene De Jesus MANUAL DIFF REQ NO Normal [facility] Comment on above: Performed By: #### C BC #### [facility] [address] [place] [address] Dr. Rene De Jesus MCH (RBC) [Entitic mass] 29.2 pg Normal 26.7-34.0 [facility] Comment on above: Performed By: #### C BC #### [facility] [address] [place] [address] Dr. Rene De Jesus MCHC (RBC) [Mass/Vol] 32.3 g/dL Normal 29.9-35.2 [facility] Comment on above: Performed By: #### C BC #### [facility] [address] [place] [address] Dr. Rene De Jesus MCV (RBC) [Entitic vol] 90.5 fL Normal 81.0-99.0 [facility] Comment on above: Performed By: #### C BC #### [facility] [address] [place] [address] Dr. Rene De Jesus MONO # 0.6 103/ul Normal 0.3-0.8 [facility] Comment on above: Performed By: #### C BC #### [facility] [address] [place] [address] Dr. Rene De Jesus Monocytes/100 WBC (Bld) 12.1 % Critically high 1.7-12.0 [facility] Comment on above: Performed By: #### C BC #### [facility] [address] [address] [address] Rene De Jesus NEUT # 2.2 103/ul Normal 1.4-6.5 [facility] Comment on above: Performed By: #### C BC #### [facility] [address] [place] [address] Dr. Rene De Jesus Neutrophils/100 WBC (Bld) 41.1 % Critically low 43.0-75.0 [facility] Comment on above: Performed By: #### C BC #### [facility] [address] [place] [address] Dr. Rene De Jesus Platelet mean volume (Bld) [Entitic vol] 10.5 fL Normal 9.5-13.5 [facility] Comment on above: Performed By: #### C BC #### [facility] [address] [place] [address] Dr. Rene De Jesus PLT 263 103/ul Normal 150-450 [facility] Comment on above: Performed By: #### C BC #### [facility] [address] [place] [address] Dr. Rene De Jesus RBC 4.52 106/ul Normal 4.20-5.40 [facility] Comment on above: Performed By: #### C BC #### [facility] [address] [place] [address] Dr. Rene De Jesus WBC 5.3 103/ul Normal 4.0-11.0 [facility] Comment on above: Performed By: #### C BC #### [facility] [address] [place] [address] Dr. Rene De Jesus PROF 14(COMP METB)on 022 Albumin [Mass/Vol] 3.9 g/dL Normal 3.4-5.0 [facility] Comment on above: Performed By: #### T ZEN, CMP #### [facility] [address] [place] [address] Dr. Rene De Jesus Albumin/Globulin [Mass ratio] 1.2 {ratio} Normal [facility] Comment on above: Performed By: #### T ZEN, CMP #### [facility] [address] [place] [address] Dr. Rene De Jesus ALP [Catalytic activity/Vol] 71 U/L Normal 46-116 [facility] Comment on above: Performed By: #### T ZEN, CMP #### [facility] [address] [place] [address] Dr. Rene De Jesus ALT [Catalytic activity/Vol] 21 U/L Normal 14-59 [facility] Comment on above: Performed By: #### T ZEN, CMP #### [facility] [address] [place] [address] Dr. Rene De Jesus Anion gap [Moles/Vol] 11.3 mmol/L Normal [facility] Comment on above: Performed By: #### T ZEN, CMP #### [facility] [address] [place] [address] Dr. Rene De Jesus AST [Catalytic activity/Vol] 15 U/L Normal 15-37 [facility] Comment on above: Performed By: #### T ZEN, CMP #### [facility] [address] [place] [address] Dr. Rene De Jesus Bilirubin [Mass/Vol] 0.3 mg/dL Normal 0.2-1.0 [facility] Comment on above: Performed By: #### T ZEN, CMP #### [facility] [address] [place] [address] Dr. Rene De Jesus Calcium [Mass/Vol] 8.9 mg/dL Normal 8.5-10.1 [facility] Comment on above: Performed By: #### T ZEN, CMP #### [facility] [address] [place] [address] Dr. Rene De Jesus Chloride [Moles/Vol] 102 mmol/L Normal 98-107 [facility] Comment on above: Performed By: #### T ZEN, CMP #### [facility] [address] [place] [address] Dr. Rene De Jesus CO2 [Moles/Vol] 30.7 mmol/L Normal 21.0-32.0 [facility] Comment on above: Performed By: #### T ZEN, CMP #### [facility] [address] [place] [address] Dr. Rene De Jesus Creatinine [Mass/Vol] 0.69 mg/dL Normal 0.55-1.02 [facility] Comment on above: Performed By: #### T SH, CMP #### [facility] [address] [place] [address] Dr. Rene De Jesus EGFR-AF SOMALI >60 Normal >=60 [facility] Comment on above: Performed By: #### T SH, CMP #### [facility] [address] [place] [address] Dr. Rene De Jesus EGFR-NON AF SOMALI >60 Normal >=60 [facility] Comment on above: Performed By: #### T ZEN, CMP #### [facility] [address] [place] [address] Dr. Rene De Jesus Globulin (S) [Mass/Vol] 3.3 g/dL Normal [facility] Comment on above: Performed By: #### T ZEN, CMP #### [facility] [address] [place] [address] Dr. Rene De Jesus Glucose [Mass/Vol] 96 mg/dL Normal 74-106 [facility] Comment on above: Performed By: #### T ZEN, CMP #### [facility] [address] [place] [address] Dr. Rene De Jesus Potassium [Moles/Vol] 4.0 mmol/L Normal 3.5-5.1 [facility] Comment on above: Performed By: #### T ZEN, CMP #### [facility] [address] [place] [address] Dr. Rene De Jesus Protein [Mass/Vol] 7.2 g/dL Normal 6.4-8.2 [facility] Comment on above: Performed By: #### T ZEN, CMP #### [facility] [address] [place] [address] Dr. Rene De Jesus Sodium [Moles/Vol] 140 mmol/L Normal 136-145 [facility] Comment on above: Performed By: #### T ZEN, CMP #### [facility] [address] [place] [address] Dr. Rene De Jesus Urea nitrogen [Mass/Vol] 18.0 mg/dL Normal 7.0-18.0 [facility] Comment on above: Performed By: #### T SH, CMP #### [facility] [address] [address] [address] Rene De Jesus Urea nitrogen/Creatinine [Mass ratio] 26.1 mg/mg Normal [facility] Comment on above: Performed By: #### T SH, CMP #### [facility] [address] [address] [address] Rene De Jesus TSHon 03-20-2022 TSH 2.033 uIU/mL Normal 0.358-3.740 [facility] Comment on above: Performed By: #### T SH, CMP #### [facility] [address] [place] [address] Dr. Rene De Jesus XR foot RT min 3V*on XR foot RT min 3V* [facility] [email or web address] Other XR foot RT min 3V* [facility] [employer] Other XR foot RT min 3V* [address] [place] [address] [email or web address] Other XR foot RT min 3V* [place] [address] [email or web address] Other XR foot RT min 3V* XRay Report [email or web address] Other XR foot RT min 3V* Signed [email or web address] Other XR foot RT min 3V* Patient: Edna Sultana MR#: [id number] [email or web address] Other XR foot RT min 3V* 2916 [email or web address] Other XR foot RT min 3V* : 1965 Acct:[id number] [email or web address] Other XR foot RT min 3V* Age/Sex: 56 / F ADM Date: 01/28/22 [email or web address] Other XR foot RT min 3V* Loc: XDUCLY Room: Type: REG CLI [email or web address] Other XR foot RT min 3V* Attending Dr: Shara Cutler [facility] [email or web address] Other XR foot RT min 3V* Copies to: SHARA CUTLER [facility] [email or web address] Other XR foot RT min 3V* Ordering Provider: SHARA CUTLER [facility] [email or web address] Other XR foot RT min 3V* Date of Service: 01/28/22 [email or web address] Other XR foot RT min 3V* XR/XR foot RT min 3V*: Injury of right foot, initial encounter [email or web address] Other XR foot RT min 3V* 3 viewsRIGHT foot plain film [email or web address] Other XR foot RT min 3V* COMPARISON:None [facility] [employer] Other XR foot RT min 3V* HISTORY:RIGHT foot injury. [email or web address] Other XR foot RT min 3V* No acute fracture, dislocation or focal soft tissue abnormality seen. Chronic deformity of the 5th [email or web address] Other XR foot RT min 3V* metatarsal identified. [email or web address] Other XR foot RT min 3V* XR/XR foot RT min 3V* [email or web address] Other XR foot RT min 3V* IMPRESSION:No acute findings [email or web address] Other XR foot RT min 3V* Impression dictated by: Lukas Nicole M.D.01/28/2022 3:27 PM [email or web address] Other XR foot RT min 3V* Dictation Location: RADIO-PC-03 [email or web address] Other XR foot RT min 3V* Transcribed By: PWS 01/28/22 1523 [facility] Other XR foot RT min 3V* Dictated By: Lukas Nicole DO 01/28/22 1521 [facility] Other XR foot RT min 3V* Signed By: [facility] Other XR foot RT min 3V* 01/28/22 [address] [employer] Other CT ABD/PELVIS WO CONon 08-01 CT [...] MARGO ELLIOTT Date: 2021-08-01 02:33 Normal [facility] ER URINE PROFILEon 2 Bilirubin Ql (U) Negative Normal NEGATIVE [facility] Comment on above: Performed By: #### E RUR #### [facility] [address] [place] [address] Dr. Rene De Jesus Clarity (U) CLEAR Normal CLEAR [facility] Comment on above: Performed By: #### E RUR #### [facility] [address] [place] [address] Dr. Rene De Jesus Color (U) YELLOW Normal YELLOW [facility] Comment on above: Performed By: #### E RUR #### [facility] [address] [place] [address] Dr. Rene De Jesus ERUAHD A micrscopic examination will be performed if indicated. Normal [facility] Comment on above: Performed By: #### E RUR #### [facility] [address] [place] [address] Dr. Rene De Jesus Glucose Ql (U) Negative Normal NEGATIVE [facility] Comment on above: Performed By: #### E RUR #### [facility] [address] [place] [address] Dr. Rene De Jesus Hemoglobin Ql (U) Negative Normal NEGATIVE [facility] Comment on above: Performed By: #### E RUR #### [facility] [address] [place] [address] Dr. Rene De Jesus Ketones Ql (U) Negative Normal NEGATIVE [facility] Comment on above: Performed By: #### E RUR #### [facility] [address] [place] [address] Dr. Rene De Jesus LEUKOCYTES Negative Normal NEGATIVE [facility] Comment on above: Performed By: #### E RUR #### [facility] [address] [place] [address] Dr. Rene De Jesus Nitrite Ql (U) Negative Normal NEGATIVE [facility] Comment on above: Performed By: #### E RUR #### [facility] [address] [place] [address] Dr. Rene De Jesus pH (U) 7.5 [pH] Normal 5-9 [facility] Comment on above: Performed By: #### E RUR #### [facility] [address] [place] [address] Dr. Rene De Jesus SPEC GRAVITY 1.015 Normal 1.005-<=1.02 5 [facility] Comment on above: Performed By: #### E RUR #### [facility] [address] [address] [address] Rene De Jesus UA PROTEIN Negative Normal NEGATIVE/ TRACE [facility] Comment on above: Performed By: #### E RUR #### [facility] [address] [address] [address] Rene De Jesus UR MICRO IND NOT INDICATED Normal [facility] Comment on above: Performed By: #### E RUR #### [facility] [address] [address] [address] Rene De Jesus Urobilinogen Qn (U) 0.2 {Raman'U}/dL Normal 0.2 - 1. 0 [facility] Comment on above: Performed By: #### E RUR #### [facility] [address] [place] [address] Dr. Rene De Jesus Otheron 09-06-2020 BILIRUBIN UA (POCT) Negative Negative [facility] CLARITY UA (POCT) Clear [facility] COLOR UA (POCT) Yellow [facility] GLUCOSE UA (POCT) Negative Negative mg/dL [facility] HEMOGLOBIN/BLOOD UA (POCT) Negative Negative [facility] KETONE UA (POCT) Negative Negative mg/dL [facility] LEUKOCYTES UA (POCT) Negative Negative [facility] NITRITE UA (POCT) Negative Negative [facility] PH UA (POCT) 8.5 Abnormal 4.5 - 8.0 [facility] Protein Ql (U) Negative Negative mg/dL [facility] SPECIFIC GRAVITY UA (POCT) 1.020 1.005 - 1.030 [facility] UROBILINOGEN UA (POCT) 0.2 E.U./dL Normal E.U./dL [facility] ANTI-SSAon 01-19-2019 ANTI-SSA <0.2 Normal [facility] Comment on above: Result Comment: REF VALUES < 1.0 = NEGATIVE >=1.0 = POSITIVE Performed By: #### A -SSA #### [facility] [address] [place] [address] ANTI-SSBon 01-19-2019 ANTI-SSB <0.2 Normal [facility] Comment on above: Result Comment: REF VALUES < 1.0 = NEGATIVE >=1.0 = POSITIVE Performed By: #### A -SSB #### [facility] [address] [place] [address] C-REACTIVE PROTEINon 019 CRP [Mass/Vol] 0.13 mg/dL Normal [facility] Comment on above: Result Comment: REF VALUE < 1.00 Performed By: #### C RP #### [facility] [address] [place] [address] SEDIMENTATION RATE, ERYTHROC YTEon 01-19-2019 SEDIMENTATION RATE, ERYTHROCYTE 3 mm/h Normal 0 - 30 [facility] Comment on above: Performed By: #### E SRWS #### [facility] [address] [place] [address] Vital Signs Date Time Vital Sign Value Performing Clinician Facility 03-22-2025 08:49-0400 Body height 177.16 cm Yannick Velázquez DO Work Phone: [facility] 03-22-2025 08:49-0400 Body mass index (BMI) [Ratio] 20.7 kg/m2 Yannick Velázquez DO Work Phone: [facility] 03-22-2025 08:49-0400 Body temperature 98.9 [degF] Yannick Velázquez DO Work Phone: [facility] 03-22-2025 08:49-0400 Body weight 65.31 kg Yannick Velázquez DO Work Phone: [facility] 03-22-2025 08:49-0400 Diastolic blood pressure 84 mm[Hg] Yannick Velázquez DO Work Phone: [facility] 03-22-2025 08:49-0400 SaO2% (BldA) [Mass fraction] 97 % Yannick Velázquez DO Work Phone: [facility] 03-22-2025 08:49-0400 Systolic blood pressure 126 mm[Hg] Yannick Velázquez DO Work Phone: [facility] 03-08-2025 12:52-0400 Body mass index (BMI) [Ratio] 20.6 kg/m2 Yannick Harper DO Work Phone: [facility] 03-08-2025 12:52-0400 Body weight 67 kg Yannick Harper DO Work Phone: [facility] 03-08-2025 12:52-0400 Diastolic blood pressure 90 mm[Hg] Yannick Harper DO Work Phone: [facility] 03-08-2025 12:52-0400 Heart rate 89 /min Yannick Harper DO Work Phone: [facility] 03-08-2025 12:52-0400 SaO2% (BldA) [Mass fraction] 99 % Yannick Harper DO Work Phone: [facility] 03-08-2025 12:52-0400 Systolic blood pressure 167 mm[Hg] Yannick Harper DO Work Phone: [facility] 02-08-2025 12:37-0400 Body height 177.16 cm Yannick Velázquez DO Work Phone: [facility] 02-08-2025 12:37-0400 Body mass index (BMI) [Ratio] 21.2 kg/m2 Yannick Velázquez DO Work Phone: [facility] 02-08-2025 12:37-0400 Body temperature 98.5 [degF] Yannick Velázquez DO Work Phone: [facility] 02-08-2025 12:37-0400 Body weight 66.67 kg Yannick Velázquez DO Work Phone: [facility] 02-08-2025 12:37-0400 Diastolic blood pressure 76 mm[Hg] Yannick Velázquez DO Work Phone: [facility] 02-08-2025 12:37-0400 Heart rate 85 /min Yannick Velázquez DO Work Phone: [facility] 02-08-2025 12:37-0400 SaO2% (BldA) [Mass fraction] 97 % Yannick Velázquez DO Work Phone: [facility] 02-08-2025 12:37-0400 Systolic blood pressure 122 mm[Hg] Yannick Velázquez DO Work Phone: [facility] 01-26-2025 08:11-0400 Body height 177.8 cm Reza Gorman MD Work Phone: [facility] 01-26-2025 08:11-0400 Body mass index (BMI) [Ratio] 20.81 kg/m2 Reza Gorman MD Work Phone: [facility] 01-26-2025 08:11-0400 Body weight 65.77 kg Reza Gorman MD Work Phone: [facility] 01-26-2025 08:11-0400 Diastolic blood pressure 80 mm[Hg] Reza Gorman MD Work Phone: [facility] 01-26-2025 08:11-0400 Heart rate 79 /min Reza Gorman MD Work Phone: [facility] 01-26-2025 08:11-0400 Systolic blood pressure 120 mm[Hg] Reza Gorman MD Work Phone: [facility] 01-03-2025 10:45-0400 Body height 177.16 cm Yannick Velázquez DO Work Phone: [facility] 01-03-2025 10:45-0400 Body mass index (BMI) [Ratio] 21.1 kg/m2 Yannick Velázquez DO Work Phone: [facility] 01-03-2025 10:45-0400 Body temperature 98.2 [degF] Yannick Velázquez DO Work Phone: [facility] 01-03-2025 10:45-0400 Body weight 66.22 kg Yannick Velázquez DO Work Phone: [facility] 01-03-2025 10:45-0400 Diastolic blood pressure 80 mm[Hg] Yannick Girvin DO Work Phone: [facility] 01-03-2025 10:45-0400 Heart rate 72 /min Yannick Velázquez DO Work Phone: [facility] 01-03-2025 10:45-0400 SaO2% (BldA) [Mass fraction] 99 % Yannick Velázquez DO Work Phone: [facility] 01-03-2025 10:45-0400 Systolic blood pressure 118 mm[Hg] Yannick Velázquez DO Work Phone: [facility] 12-21-2024 08:35-0400 Body height 177.8 cm Katia Whitt MD Work Phone: [facility] 12-21-2024 08:35-0400 Body mass index (BMI) [Ratio] 21.06 kg/m2 Katia Whitt MD Work Phone: [facility] 12-21-2024 08:35-0400 Body weight 66.59 kg Katia Whitt MD Work Phone: [facility] 12-21-2024 08:35-0400 Diastolic blood pressure 78 mm[Hg] Katia Whitt MD Work Phone: [facility] 12-21-2024 08:35-0400 Systolic blood pressure 124 mm[Hg] Katia Whitt MD Work Phone: [facility] 11-09-2024 11:51-0400 Body height 177.8 cm Katia Whitt MD Work Phone: [facility] 11-09-2024 11:51-0400 Body mass index (BMI) [Ratio] 21.64 kg/m2 Katia Whitt MD Work Phone: [facility] 11-09-2024 11:51-0400 Body weight 68.4 kg Katia Whitt MD Work Phone: [facility] 11-09-2024 11:51-0400 Diastolic blood pressure 88 mm[Hg] Katia Whitt MD Work Phone: [facility] 11-09-2024 11:51-0400 Systolic blood pressure 132 mm[Hg] Katia Whitt MD Work Phone: [facility] 10-26-2024 15:27-0400 Body height 177.8 cm Katia Whitt MD Work Phone: [facility] 10-26-2024 15:27-0400 Body mass index (BMI) [Ratio] 21.03 kg/m2 Katia Whitt MD Work Phone: [facility] 10-26-2024 15:27-0400 Body weight 66.5 kg Katia Whitt MD Work Phone: [facility] 10-20-2024 12:36-0400 Body height 177.16 cm [facility] 10-20-2024 12:36-0400 Body mass index (BMI) [Ratio] 21.2 kg/m2 [facility] 10-20-2024 12:36-0400 Body temperature 98.3 [degF] [facility] 10-20-2024 12:36-0400 Body weight 66.67 kg [facility] 10-20-2024 12:36-0400 Diastolic blood pressure 86 mm[Hg] [facility] 10-20-2024 12:36-0400 Heart rate 104 /min [facility] 10-20-2024 12:36-0400 SaO2% (BldA) [Mass fraction] 96 % [facility] 10-20-2024 12:36-0400 Systolic blood pressure 130 mm[Hg] [facility] 09-29-2024 08:57-0400 Body height 177.16 cm [facility] 09-29-2024 08:57-0400 Body mass index (BMI) [Ratio] 21.9 kg/m2 [facility] 09-29-2024 08:57-0400 Body temperature 98 [degF] [facility] 09-29-2024 08:57-0400 Body weight 68.94 kg [facility] 09-29-2024 08:57-0400 Diastolic blood pressure 80 mm[Hg] [facility] 09-29-2024 08:57-0400 SaO2% (BldA) [Mass fraction] 99 % [facility] 09-29-2024 08:57-0400 Systolic blood pressure 136 mm[Hg] [facility] 08-31-2024 15:36-0500 Body height 179.1 cm Katia Whitt MD Work Phone: [facility] 08-31-2024 15:36-0500 Body mass index (BMI) [Ratio] 22.66 kg/m2 Katia Whitt MD Work Phone: [facility] 08-31-2024 15:36-0500 Body weight 72.67 kg Katia Whitt MD Work Phone: [facility] 08-31-2024 15:36-0500 Diastolic blood pressure 84 mm[Hg] Katia Whitt MD Work Phone: [facility] 08-31-2024 15:36-0500 Systolic blood pressure 136 mm[Hg] Katia Whitt MD Work Phone: [facility] 08-04-2024 15:17-0500 Body height 177.8 cm Reza Gorman MD Work Phone: [facility] 08-04-2024 15:17-0500 Body mass index (BMI) [Ratio] 22.1 kg/m2 Reza Gorman MD Work Phone: [facility] 08-04-2024 15:17-0500 Body weight 69.85 kg Reza Gorman MD Work Phone: [facility] 08-04-2024 15:17-0500 Diastolic blood pressure 85 mm[Hg] Reza Gorman MD Work Phone: [facility] 08-04-2024 15:17-0500 Heart rate 80 /min Reza Gorman MD Work Phone: [facility] 08-04-2024 15:17-0500 Systolic blood pressure 141 mm[Hg] Reza Gorman MD Work Phone: [facility] 06-01-2024 08:53-0500 Body height 179.1 cm Katia Whitt MD Work Phone: [facility] 06-01-2024 08:53-0500 Body mass index (BMI) [Ratio] 21.87 kg/m2 Katia Whitt MD Work Phone: [facility] 06-01-2024 08:53-0500 Body weight 70.13 kg Katia Whitt MD Work Phone: [facility] 05-31-2024 13:29-0500 Body height 177.8 cm Ivy Gillmor MACHINE SILK SCREEN PRINTER Work Phone: [facility] 05-31-2024 13:29-0500 Body mass index (BMI) [Ratio] 22.1 kg/m2 Ivy Gillmor MACHINE SILK SCREEN PRINTER Work Phone: [facility] 05-31-2024 13:29-0500 Body weight 69.85 kg Ivy Gillmor MACHINE SILK SCREEN PRINTER Work Phone: [facility] 05-31-2024 13:29-0500 Diastolic blood pressure 96 mm[Hg] Ivy Gillmor MACHINE SILK SCREEN PRINTER Work Phone: [facility] 05-31-2024 13:29-0500 Heart rate 106 /min Ivy Gillmor MACHINE SILK SCREEN PRINTER Work Phone: [facility] 05-31-2024 13:29-0500 Systolic blood pressure 154 mm[Hg] Ivy Gillmor MACHINE SILK SCREEN PRINTER Work Phone: [facility] 05-18-2024 15:17-0500 Body height 179.1 cm [facility] 05-18-2024 15:17-0500 Body mass index (BMI) [Ratio] 21.36 kg/m2 [facility] [employer] [facility] 05-18-2024 15:17-0500 Body weight 68.49 kg [facility] 05-18-2024 15:17-0500 Diastolic blood pressure 84 mm[Hg] [facility] 05-18-2024 15:17-0500 Systolic blood pressure 124 mm[Hg] [facility] 04-20-2024 13:18-0400 Blood Pressure Location Florentin [employer] [facility] 04-20-2024 13:18-0400 Diastolic blood pressure 106 mm[Hg] Florentin WONGL [facility] 04-20-2024 13:18-0400 Heart rate 72 /min Florentin WONGL [facility] 04-20-2024 13:18-0400 Respiratory rate 16 /min Florentin [employer] [facility] 04-20-2024 13:18-0400 Systolic blood pressure 144 mm[Hg] Florentin WONGL [facility] 04-15-2024 11:02-0400 Body height 177.8 cm Suzanne Marlen DO Work Phone: [facility] 04-15-2024 11:02-0400 Body mass index (BMI) [Ratio] 22.1 kg/m2 Suzanne Marlen DO Work Phone: [facility] 04-15-2024 11:02-0400 Body weight 69.85 kg Suzanne Marlen DO Work Phone: [facility] 04-15-2024 11:02-0400 Diastolic blood pressure 86 mm[Hg] Suzanne Marlen DO Work Phone: [facility] 04-15-2024 11:02-0400 Heart rate 83 /min Suzanne Marlen DO Work Phone: [facility] 04-15-2024 11:02-0400 SaO2% (BldA) [Mass fraction] 98 % Suzanne Marlen DO Work Phone: [facility] 04-15-2024 11:02-0400 Systolic blood pressure 134 mm[Hg] Suzanne Gee DO Work Phone: [facility] 03-24-2024 15:02-0400 Body height 177.16 cm [facility] 03-24-2024 15:02-0400 Body mass index (BMI) [Ratio] 22.5 kg/m2 [facility] 03-24-2024 15:02-0400 Body temperature 97.3 [degF] [facility] 03-24-2024 15:02-0400 Body weight 70.76 kg [facility] 03-24-2024 15:02-0400 Diastolic blood pressure 80 mm[Hg] [facility] 03-24-2024 15:02-0400 Heart rate 77 /min [facility] 03-24-2024 15:02-0400 SaO2% (BldA) [Mass fraction] 98 % [facility] 03-24-2024 15:02-0400 Systolic blood pressure 124 mm[Hg] [facility] 03-23-2024 14:54-0400 Body height 180.3 cm Janna Gilman MD Work Phone: [facility] 03-23-2024 14:54-0400 Body mass index (BMI) [Ratio] 21.59 kg/m2 Janna Gilman MD Work Phone: [facility] 03-23-2024 14:54-0400 Body weight 70.2 kg Janna Gilman MD Work Phone: [facility] 03-23-2024 14:54-0400 Diastolic blood pressure 92 mm[Hg] Janna Gilman MD Work Phone: [facility] 03-23-2024 14:54-0400 Heart rate 95 /min Janna Gilman MD Work Phone: [facility] 03-23-2024 14:54-0400 SaO2% (BldA) [Mass fraction] 100 % Janna Gilman MD Work Phone: [facility] 03-23-2024 14:54-0400 Systolic blood pressure 156 mm[Hg] Janna Gilman MD Work Phone: [facility] 12-24-2023 10:31-0400 Body height 177.16 cm [facility] 12-24-2023 10:31-0400 Body mass index (BMI) [Ratio] 21.8 kg/m2 [facility] 12-24-2023 10:31-0400 Body temperature 98.1 [degF] [facility] 12-24-2023 10:31-0400 Body weight 68.49 kg [facility] 12-24-2023 10:31-0400 Diastolic blood pressure 82 mm[Hg] [facility] 12-24-2023 10:31-0400 Heart rate 87 /min [facility] 12-24-2023 10:31-0400 SaO2% (BldA) [Mass fraction] 97 % [facility] 12-24-2023 10:31-0400 Systolic blood pressure 136 mm[Hg] [facility] 12-12-2023 10:35-0400 Body height 180.3 cm Abiodun Langleyry DO Work Phone: [facility] 12-12-2023 10:35-0400 Body mass index (BMI) [Ratio] 22.04 kg/m2 Abiodun Emir DO Work Phone: [facility] 12-12-2023 10:35-0400 Body weight 71.67 kg Abiodun Emir DO Work Phone: [facility] 12-12-2023 10:35-0400 Respiratory rate 12 /min Abiodun Emir DO Work Phone: [facility] 10-21-2023 08:07-0400 Body height 180.3 cm Abiodun Emir DO Work Phone: [facility] 10-21-2023 08:07-0400 Body mass index (BMI) [Ratio] 22.04 kg/m2 Abiodun Emir DO Work Phone: [facility] 10-21-2023 08:07-0400 Body weight 71.67 kg Abiodun Castano DO Work Phone: [facility] 10-21-2023 08:07-0400 Respiratory rate 12 /min Abiodun Castano DO Work Phone: [facility] 09-30-2023 10:22-0400 Body height 179.1 cm [employer] [employer] [facility] 09-30-2023 10:22-0400 Body mass index (BMI) [Ratio] 22.48 kg/m2 [facility] [employer] [facility] 09-30-2023 10:22-0400 Body weight 72.12 kg [facility] [employer] [facility] 09-30-2023 10:22-0400 Diastolic blood pressure 64 mm[Hg] [facility] [employer] [facility] 09-30-2023 10:22-0400 Systolic blood pressure 120 mm[Hg] [facility] [employer] [facility] 05-22-2023 11:30-0500 Body height 177.16 cm Yannick Velázquez Other [employer] Other 05-22-2023 11:30-0500 Body mass index (BMI) [Ratio] 22.4 kg/m2 Yannick Velázquez Other [employer] Other 05-22-2023 11:30-0500 Body temperature 98.5 [degF] Yannick Velázquez Other [employer] Other 05-22-2023 11:30-0500 Body weight 70.31 kg Yannick Velázquez Other [employer] Other 05-22-2023 11:30-0500 Diastolic blood pressure 88 mm[Hg] Yannick Velázquez Other [employer] Other 05-22-2023 11:30-0500 Respiratory rate 18 /min Yannick Velázquez Other [employer] Other 05-22-2023 11:30-0500 SaO2% (BldA) [Mass fraction] 98 % Yannick Velázquez Other [employer] Other 05-22-2023 11:30-0500 Systolic blood pressure 138 mm[Hg] Yannick Velázquez Other [employer] Other 03-19-2023 15:20-0400 Body height 177.16 cm Victorina Blades Other [employer] Other 03-19-2023 15:20-0400 Body mass index (BMI) [Ratio] 23.26 kg/m2 Victorina Blades Other [employer] Other 03-19-2023 15:20-0400 Body weight 73.03 kg Victorina Blades Other [employer] Other 03-19-2023 15:20-0400 Diastolic blood pressure 84 mm[Hg] Victorina Blades Other [employer] Other 03-19-2023 15:20-0400 Systolic blood pressure 130 mm[Hg] Victorina Blades Other [employer] Other 02-23-2023 13:27-0400 Body height 177.8 cm DO Yannick Velázquez Work Phone: [facility] 02-23-2023 13:27-0400 Body temperature 99 [degF] DO Yannick Velázquez Work Phone: [facility] 02-23-2023 13:27-0400 Body weight 72.05 kg DO Yannick Velázquez Work Phone: [facility] 02-23-2023 13:27-0400 Diastolic blood pressure 95 mm[Hg] DO Yannick Velázquez Work Phone: [facility] 02-23-2023 13:27-0400 Heart rate 101 /min DO Yannick Velázquez Work Phone: [facility] 02-23-2023 13:27-0400 Respiratory rate 18 /min DO Yannick Velázquez Work Phone: [facility] 02-23-2023 13:27-0400 SaO2% (BldA) [Mass fraction] 98 % DO Yannick Velázquez Work Phone: [facility] 02-23-2023 13:27-0400 Systolic blood pressure 152 mm[Hg] DO Yannick Velázquez Work Phone: [facility] 02-12-2023 10:00-0400 Body height 177.16 cm Victorina Blades Other [employer] Other 02-12-2023 10:00-0400 Body mass index (BMI) [Ratio] 23.41 kg/m2 Victorina Blades Other [employer] Other 02-12-2023 10:00-0400 Body weight 73.48 kg Victorina Blades Other [employer] Other 02-12-2023 10:00-0400 Diastolic blood pressure 82 mm[Hg] Victorina Blades Other [employer] Other 02-12-2023 10:00-0400 Systolic blood pressure 120 mm[Hg] Victorina Blades Other [employer] Other 01-21-2023 09:10-0400 Body height 177.16 cm Tonia Sandoval Other [employer] Other 01-21-2023 09:10-0400 Body mass index (BMI) [Ratio] 23.84 kg/m2 Tonia Sandoval Other [employer] Other 01-21-2023 09:10-0400 Body temperature 97.6 [degF] Tonia Sandoval Other [employer] Other 01-21-2023 09:10-0400 Body weight 74.84 kg Tonia Sandoval Other [employer] Other 01-21-2023 09:10-0400 Diastolic blood pressure 88 mm[Hg] Tonia Sandoval Other [employer] Other 01-21-2023 09:10-0400 Respiratory rate 18 /min Tonia Sandoval Other [employer] Other 01-21-2023 09:10-0400 SaO2% (BldA) [Mass fraction] 99 % Tonia Sandoval Other [employer] Other 01-21-2023 09:10-0400 Systolic blood pressure 125 mm[Hg] Tonia Sandoval Other [employer] Other 12-20-2022 08:10-0400 Body height 177.16 cm Yannick Velázquez Other [employer] Other 12-20-2022 08:10-0400 Body mass index (BMI) [Ratio] 23.55 kg/m2 Yannick Velázquez Other [employer] Other 12-20-2022 08:10-0400 Body temperature 98.6 [degF] Yannick Velázquez Other [employer] Other 12-20-2022 08:10-0400 Body weight 73.94 kg Yannick Velázquez Other [employer] Other 12-20-2022 08:10-0400 Diastolic blood pressure 70 mm[Hg] Yannick Velázquez Other [employer] Other 12-20-2022 08:10-0400 Respiratory rate 20 /min Yannick Velázquez Other [employer] Other 12-20-2022 08:10-0400 SaO2% (BldA) [Mass fraction] 97 % Yannick Velázquez Other [employer] Other 12-20-2022 08:10-0400 Systolic blood pressure 110 mm[Hg] Yannick Velázquez Other [employer] Other 07-19-2022 13:30-0500 Body height 177.16 cm Yannick Velázquez Other [employer] Other 07-19-2022 13:30-0500 Body mass index (BMI) [Ratio] 24.2 kg/m2 Yannick Velázquez Other [employer] Other 07-19-2022 13:30-0500 Body temperature 97.8 [degF] Yannick Velázquez Other [employer] Other 07-19-2022 13:30-0500 Body weight 75.98 kg Yannick Velázquez Other [employer] Other 07-19-2022 13:30-0500 Diastolic blood pressure 82 mm[Hg] Yannick Velázquez Other [employer] Other 07-19-2022 13:30-0500 Respiratory rate 18 /min Yannick Velázquez Other [employer] Other 07-19-2022 13:30-0500 SaO2% (BldA) [Mass fraction] 97 % Yannick Velázquez Other [employer] Other 07-19-2022 13:30-0500 Systolic blood pressure 116 mm[Hg] Yannick Velázquez Other [employer] Other 06-24-2022 15:40-0500 Body height 177.16 cm Yannick Gisel Other [employer] Other 01-28-2022 14:45-0400 Body height 177.16 cm Shara Cutler Other [employer] Other 01-28-2022 14:45-0400 Body mass index (BMI) [Ratio] 24.71 kg/m2 Shara Cutler Other [employer] Other 01-28-2022 14:45-0400 Body temperature 98.5 [degF] Shara Cutler Other [employer] Other 01-28-2022 14:45-0400 Body weight 77.57 kg Shara Cutler Other [employer] Other 01-28-2022 14:45-0400 Diastolic blood pressure 79 mm[Hg] Shara Cutler Other [employer] Other 01-28-2022 14:45-0400 Respiratory rate 18 /min Shara Cutler Other [employer] Other 01-28-2022 14:45-0400 SaO2% (BldA) [Mass fraction] 99 % Shara Cutler Other [employer] Other 01-28-2022 14:45-0400 Systolic blood pressure 111 mm[Hg] Shara Cutler Other [employer] Other 01-09-2022 15:20-0400 Body height 177.16 cm Yannick Velázquez Other [employer] Other 01-09-2022 15:20-0400 Body mass index (BMI) [Ratio] 25 kg/m2 Yannick Velázquez Other [employer] Other 01-09-2022 15:20-0400 Body temperature 98.1 [degF] Yannick Velázquez Other [employer] Other 01-09-2022 15:20-0400 Body weight 78.47 kg Yannick Velázquez Other [employer] Other 01-09-2022 15:20-0400 Diastolic blood pressure 76 mm[Hg] Yannick Velázquez Other [employer] Other 01-09-2022 15:20-0400 Respiratory rate 18 /min Yannick Velázquez Other [employer] Other 01-09-2022 15:20-0400 SaO2% (BldA) [Mass fraction] 97 % Yannick Velázquez Other [employer] Other 01-09-2022 15:20-0400 Systolic blood pressure 120 mm[Hg] Yannick Velázquez Other [employer] Other 09-10-2021 12:10-0500 Body height 177.16 cm Yannick Velázquez Other [employer] Other 09-10-2021 12:10-0500 Body mass index (BMI) [Ratio] 24.42 kg/m2 Yannick Velázquez Other [employer] Other 09-10-2021 12:10-0500 Body temperature 97.9 [degF] Yannick Velázquez Other [employer] Other 09-10-2021 12:10-0500 Body weight 76.66 kg Yannick Velázquez Other [employer] Other 09-10-2021 12:10-0500 Diastolic blood pressure 80 mm[Hg] Yannick Velázquez Other [employer] Other 09-10-2021 12:10-0500 Respiratory rate 16 /min Yannick Velázquez Other [employer] Other 09-10-2021 12:10-0500 SaO2% (BldA) [Mass fraction] 97 % Yannick Velázquez Other [employer] Other 09-10-2021 12:10-0500 Systolic blood pressure 118 mm[Hg] Yannick Velázquez Other [employer] Other 06-11-2021 12:10-0500 Body height 177.16 cm Yannick Velázquez Other [employer] Other 06-11-2021 12:10-0500 Body mass index (BMI) [Ratio] 23.34 kg/m2 Yannick Velázquez Other [employer] Other 06-11-2021 12:10-0500 Body temperature 97.6 [degF] Yannick Velázquez Other [employer] Other 06-11-2021 12:10-0500 Body weight 73.26 kg Yannick Gisel Other [employer] Other 06-11-2021 12:10-0500 Diastolic blood pressure 88 mm[Hg] Yannick Velázquez Other [employer] Other 06-11-2021 12:10-0500 Respiratory rate 18 /min Yannick Velázquez Other [employer] Other 06-11-2021 12:10-0500 SaO2% (BldA) [Mass fraction] 99 % Yannick Velázquez Other [employer] Other 06-11-2021 12:10-0500 Systolic blood pressure 122 mm[Hg] Yannick Velázquez Other [employer] Other 09-06-2020 13:39-0500 Body weight 70.76 kg [facility] 09-06-2020 13:39-0500 Height 180.3 cm [facility] Encounters Encounter Date Encounter Type Care Provider Facility Start: 03-22-2025 End: 03-22-2025 ambulatory Yannick Velázquez DO Work Phone: [facility] Work Phone: Start: 03-22-2025 End: 03-22-2025 Patient encounter [facility] Start: 03-08-2025 End: 03-08-2025 Office outpatient new 60 minutes Yannick Harper DO Work Phone: Neurology Comment on above: Vitreous floaters of left eye (Primary Dx) Start: 03-08-2025 End: 03-08-2025 ambulatory YANNICK HARPER Facility:[facility] Start: 02-08-2025 End: 02-08-2025 ambulatory Yannick Velázquez DO Work Phone: [facility] Work Phone: Start: 02-08-2025 End: 02-08-2025 Patient encounter procedure Yannick Velázquez DO -[facility] Work Phone: Start: 01-26-2025 End: 01-26-2025 Bamboo flowsheet Reza Gorman MD Work Phone: [facility] Start: 01-26-2025 End: 01-26-2025 Bamboo flowsheet Reza Gorman MD Work Phone: [facility] Start: 01-26-2025 End: 01-26-2025 ambulatory REZA GORMAN Not Available Start: 01-26-2025 End: 01-26-2025 Office outpatient visit 15 minutes Reza Gorman MD Work Phone: [facility] Comment on above: Thyroid nodule (Prim armida Dx) Start: 01-18-2025 End: 01-18-2025 Clinisync Result Encounter Reza Gorman MD Work Phone: [facility] Unsolicited Start: 01-18-2025 End: 01-18-2025 Clinisync Result Encounter Reza Gorman MD Work Phone: [facility] External [facility] Unsolicited Start: 01-13-2025 End: 01-13-2025 Telephone encounter Eugenio Brown [facility] Start: 01-03-2025 End: 01-03-2025 ambulatory Yannick Velázquez DO Work Phone: [facility] Work Phone: Start: 01-03-2025 End: 01-03-2025 Patient encounter procedure Yannick Velázquez DO -[facility] [place] Work Phone: Start: 12-21-2024 End: 12-21-2024 Office outpatient visit 15 minutes Katia Whitt MD Work Phone: [facility] Comment on above: Menopausal symptom ( Primary Dx) Start: 12-21-2024 End: 12-21-2024 ambulatory KATIA WHITT [facility] Start: 12-01-2024 End: 12-01-2024 Subsequent hospital visit by physician Dominique [id number] [facility] Comment on above: Encounter for screen ing for cardiovascular disorders Start: 12-01-2024 End: 12-01-2024 ambulatory [facility] Start: 11-30-2024 End: 11-30-2024 Telephone encounter [facility] Start: 11-29-2024 End: 11-30-2024 Refill Katia Whitt MD Work Phone: [facility] Start: 11-09-2024 End: 11-09-2024 Office outpatient visit 15 minutes [facility] Whitt MD [facility] Comment on above: Thickened endometriu m (Primary Dx); Menopausal symptom; Vaginal atrophy Start: 11-09-2024 End: 11-09-2024 ambulatory [facility] Start: 10-26-2024 End: 10-26-2024 ambulatory [facility] Start: 10-26-2024 End: 10-26-2024 Patient encounter procedure Katia Whitt MD Work Phone: [facility] Comment on above: Postmenopausal (Prim armida Dx); DUB (dysfunctional uterine bleeding) [N93.8]; Thickened endometrium Start: 10-26-2024 End: 10-26-2024 ambulatory [facility] Start: 10-20-2024 End: 10-20-2024 ambulatory [facility] Work Phone: Start: 10-20-2024 End: 10-20-2024 Patient encounter procedure [facility] [place] Work Phone: Start: 10-19-2024 End: 10-19-2024 ambulatory Janna Gilman MD Work Phone: Neurology Comment on above: Question Start: 10-01-2024 End: 10-04-2024 Telephone encounter Laurie Higginbotham [facility] Start: 09-29-2024 End: 09-29-2024 ambulatory [facility] Work Phone: Start: 09-29-2024 End: 09-29-2024 Patient encounter procedure [facility] [place] Work Phone: Start: 08-31-2024 End: 08-31-2024 Office outpatient visit 15 minutes Katia Whitt MD Work Phone: [facility]ne[facility] Comment on above: Vaginal lesion (Prim armida Dx); Thickened endometrium Start: 08-31-2024 End: 08-31-2024 ambulatory [facility] Start: 08-04-2024 End: 08-04-2024 Office outpatient visit 15 minutes Reza Gorman MD Work Phone: [facility] Comment on above: Nontoxic multinodula r goiter (CMS/HCC) (Primary Dx) Start: 08-04-2024 End: 08-04-2024 ambulatory REZA GORMAN Not Available Start: 08-04-2024 End: 08-04-2024 Bamboo flowsheet Reza Gorman MD Work Phone: [facility] Start: 08-04-2024 End: 08-04-2024 Bamkatieo flowsheet Reza Gorman MD Work Phone: [facility] Start: 07-01-2024 End: 07-01-2024 ambulatory RAVEN HERNÁNDEZ [facility] Start: 06-24-2024 End: 06-24-2024 ambulatory Yannick Velázquez [facility] Start: 06-23-2024 End: 06-23-2024 ambulatory YANNICK Tran [facility] Start: 06-17-2024 End: 06-17-2024 ambulatory [facility] Start: 06-11-2024 End: 06-11-2024 ambulatory Janna Gilman MD Work Phone: Neurology Comment on above: MRI result Start: 06-11-2024 End: 06-11-2024 E-mail encounter from caregiver Janna Gilman MD Work Phone: Neurology Start: 06-10-2024 End: 06-10-2024 ambulatory JANNA GILMAN Facility:[facility] Start: 06-10-2024 End: 06-10-2024 Subsequent hospital visit by physician [facility] (1.5t) Work Phone: Radiology Comment on above: 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] Start: 06-01-2024 End: 06-01-2024 Office outpatient visit 15 minutes Katia Whitt MD Work Phone: [facility]ne[facility] Comment on above: Vaginal lesion (Prim armida Dx) Start: 06-01-2024 End: 06-01-2024 ambulatory KATIA WHITT [facility] Start: 05-31-2024 End: 05-31-2024 Bamboo flowsheet Ivy Garcia MACHINE SILK SCREEN PRINTER Work Phone: [facility] [address] Start: 05-31-2024 End: 05-31-2024 Bamboo flowsheet Ivy Garcia MACHINE SILK SCREEN PRINTER Work Phone: [facility] [address] Start: 05-31-2024 End: 05-31-2024 Office outpatient visit 25 minutes Ivy Garcia MACHINE SILK SCREEN PRINTER Work Phone: [facility] [address] Comment on above: Restless legs (Prima ry Dx); Benign fasciculation-cramp syndrome; Hypersomnia; PLMD (periodic limb movement disorder); Chronic low back pain, unspecified back pain laterality, unspecified whether sciatica present; Sleep disturbance Start: 05-31-2024 End: 05-31-2024 ambulatory IVY GARCIA Not Available Start: 05-31-2024 End: 05-31-2024 ambulatory RAVENSurjit SMITH [facility] Start: 05-18-2024 End: 05-18-2024 ambulatory [facility]AV[facility] Start: 05-18-2024 End: 05-18-2024 ambulatory YANNICK VELÁZQUEZ [facility] Start: 05-18-2024 Encounter for gynecological examination (general) (routine) without abnormal findings YANNICK VELÁZQUEZ [facility] Start: 05-18-2024 End: 05-18-2024 Patient encounter procedure [facility] [employer] [facility] Start: 05-18-2024 End: 05-18-2024 Periodic preventive med est patient 40-64yrs [facility] [employer] [facility] [place] Comment on above: [...] 04-20-2024 End: 04-20-2024 ambulatory Yannick Velázquez Facility: [facility] Start: 04-20-2024 End: 04-20-2024 Patient encounter procedure Florentin NEVILLE [facility] [place] Start: 04-15-2024 End: 04-15-2024 BamCounselyticso Check[employer] Suzanne Gee DO Work Phone: [facility] Start: 04-15-2024 End: 04-15-2024 Bamboo flowsheet Suzanne Gee DO Work Phone: [facility] Start: 04-15-2024 End: 04-15-2024 Office outpatient visit 25 minutes Suzanne Gee DO Work Phone: [facility] Comment on above: AB (obstructive sle ep apnea) (Primary Dx); Hypersomnia; Sleep disturbance; Catathrenia; Sleep talking Start: 04-15-2024 End: 04-15-2024 ambulatory SUZANEN GEE Not Available Start: 03-25-2024 ambulatory Yannick Velázquez Facility:[facility] Start: 03-24-2024 End: 03-24-2024 ambulatory [facility] Work Phone: Start: 03-24-2024 End: 03-24-2024 Patient encounter procedure 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 Work Phone: Start: 12-12-2023 End: 12-12-2023 Patient encounter procedure Abiodun Castano DO Work Phone: [facility] [place] Comment on above: Fasciculation (Prima ry Dx); Hyperreflexia; Degeneration of lumbar or lumbosacral intervertebral disc Start: 12-09-2023 ambulatory Abiodun Laureanocha ry DO Work Phone: [facility] [place] Comment on above: MRI brain cervical t horacic Start: 12-09-2023 E-mail encounter fro m caregiver Abiodun Castano DO Work Phone: [facility] [place] Start: 12-09-2023 End: 12-09-2023 Subsequent hospital visit by physician [facility] Cookie (1.5t) Work Phone: Radiology Comment on above: 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 ] Start: 11-12-2023 Non-patient / Non-visit [facility] Work Phone: Start: 11-10-2023 End: 11-10-2023 ambulatory [facility] Work Phone: Start: 11-10-2023 End: 11-10-2023 Patient encounter procedure [facility] Work Phone: Start: 11-06-2023 Telephone encounter Abiodun Mcleod Arpita calabrese DO Work Phone: [facility] Comment on above: MRI Appointment Start: 11-05-2023 Telephone encounter Abiodun Mcleod Arpita calabrese DO Work Phone: [facility] Start: 10-28-2023 Telephone encounter Abiodun Mcleod Arpita calabrese DO Work Phone: [facility] Comment on above: MRI Appointment; Fol low Up Start: 10-25-2023 Non-patient / Non-visit [facility] Work Phone: Start: 10-23-2023 ambulatory Abiodun Shani rios DO Work Phone: [facility] Start: 10-23-2023 Patient encounter procedure Abiodun Castano DO Work Phone: [facility] [place] Comment on above: Today's Appointment Start: 10-21-2023 End: 10-21-2023 Patient encounter procedure Abiodun Castano DO Work Phone: [facility] [place] Comment on above: Lumbar radiculopathy (Primary Dx); Hyperreflexia; Cardiac murmur; Fasciculation; Neuromuscular scoliosis of thoracic region; Chiari I malformation (HCC); Spinal stenosis of cervical region; Syringomyelia and syringobulbia (HCC); Demyelinating disease of central nervous system (HCC) Start: 10-07-2023 Non-patient / Non-visit [facility] [place] Work Phone: Start: 09-30-2023 End: 09-30-2023 amb[address] YANNICK VELÁZQUEZ 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 Work Phone: Start: 06-17-2023 End: 06-17-2023 ambulatory Yannick Velázquez Other [email or web address] Other Start: 06-17-2023 Office outpatient vi sit 15 minutes Yannick Velázquez [facility] [place] Start: 05-27-2023 End: 05-28-2023 ambulatory Yannick Velázquez DO Facility:[facility] Start: 05-23-2023 End: 05-23-2023 ambulatory Yannick Velázquez Other [email or web address] Other Start: 05-23-2023 Telephone encounter Yannick Velázquez [facility] [place] Start: 05-22-2023 End: 05-22-2023 ambulatory Yannick Velázquez Other [email or web address] Other Start: 05-22-2023 Office outpatient vi sit 25 minutes Yannick Velázquez [facility] [place] Start: 04-29-2023 End: 04-29-2023 ambulatory Yannick Velázquez Other [email or web address] Other Start: 04-29-2023 Telephone encounter Yannick Velázquez [facility] [place] Start: 04-16-2023 End: 04-16-2023 ambulatory Yannick Velázquez Other [email or web address] Other Start: 04-16-2023 Telephone encounter Yannick Velázquez [facility] [place] Start: 04-15-2023 End: 04-15-2023 ambulatory Yannick Velázquez Other [email or web address] Other Start: 04-15-2023 Telephone encounter Yannick Velázquez [facility] [place] Start: 04-02-2023 End: 04-02-2023 ambulatory Yannick Velázquez Other [email or web address] Other Start: 04-02-2023 Telephone encounter Yannick Velázquez [facility] [place] Start: 03-19-2023 End: 03-19-2023 ambulatory Victorina Martinez Other [email or web address] Other Start: 03-19-2023 Office outpatient vi sit 15 minutes Victorina Martinez [facility] Start: 03-13-2023 End: 03-13-2023 ambulatory Yannick Velázquez Other [email or web address] Other Start: 03-13-2023 Telephone encounter Yannick Velázquez [facility] [place] Start: 03-05-2023 End: 03-05-2023 ambulatory Yannick Velázquez Other [email or web address] Other Start: 03-05-2023 Telephone encounter Yannick Velázquez [facility] [place] Start: 03-03-2023 End: 03-03-2023 ambulatory Yannick Velázquez Other [email or web address] Other Start: 03-03-2023 Telephone encounter Yannick Velázquez [facility] [place] Start: 02-27-2023 End: 02-27-2023 ambulatory DO Yannick Velázquez Work Phone: [facility] Work Phone: Start: 02-27-2023 End: 02-27-2023 Patient encounter procedure DO Yannick Velázquez Work Phone: [facility]-MRI [facility] [place] Work Phone: Start: 02-23-2023 End: 02-23-2023 Emergency department patient visit DO Yannick Velázquez Work Phone: [facility]-Emergency Room Work Phone: Start: 02-14-2023 End: 02-14-2023 ambulatory Victorina Blades Other [email or web address] Other Start: 02-14-2023 Telephone encounter Victorina Blades [facility] Start: 02-12-2023 End: 02-12-2023 ambulatory Victorina Blades Other [email or web address] Other Start: 02-12-2023 Office outpatient vi sit 15 minutes Victorina Blades [facility] Start: 02-10-2023 End: 02-10-2023 ambulatory Yannick Velázquez Other [email or web address] Other Start: 02-10-2023 Telephone encounter Yannick Velázquez [facility] [place] Start: 02-05-2023 End: 02-05-2023 ambulatory Yannick Velázquez Other [email or web address] Other Start: 02-05-2023 Telephone encounter Yannick Velázquez [facility] [place] Start: 01-21-2023 End: 01-21-2023 ambulatory Tonia Sandoval Other [email or web address] Other Start: 01-21-2023 Office outpatient vi sit 25 minutes Tonia Sandoval [facility] [place] Start: 01-08-2023 End: 01-08-2023 ambulatory Yannick Velázquez Other [email or web address] Other Start: 01-08-2023 Telephone encounter Yannick Velázquez [facility] [place] Start: 01-03-2023 End: 01-03-2023 ambulatory Yannick Velázquez Other [email or web address] Other Start: 01-03-2023 Telephone encounter Yannick Velázquez [facility] [place] Start: 01-02-2023 Telephone encounter Yannick Velázquez [facility] [place] Start: 01-02-2023 End: 01-02-2023 ambulatory DO Yannick Velázquez Work Phone: [facility] Work Phone: Start: 01-02-2023 End: 01-02-2023 Patient encounter procedure DO Yannick Velázquez Work Phone: [facility]-Ultrasound [facility] [place] Work Phone: Start: 12-20-2022 End: 12-20-2022 ambulatory Yannick Velázquez Other [email or web address] Other Start: 12-20-2022 Office outpatient vi sit 25 minutes Yannick Velázquez [facility] [place] Start: 09-24-2022 End: 09-24-2022 ambulatory Victorina Martinez Other [email or web address] Other Start: 09-24-2022 Telephone encounter Victorina Martinez [facility] Start: 09-16-2022 End: 09-16-2022 ambulatory Yannick Velázquez Other [email or web address] Other Start: 09-16-2022 Office outpatient vi sit 10 minutes Yannick Velázquez [facility] [place] Start: 09-16-2022 Telephone encounter Yannick Velázquez [facility] [place] Start: 08-29-2022 End: 08-29-2022 ambulatory Yannick Velázquez Other [email or web address] Other Start: 08-29-2022 Telephone encounter Yannick Velázquez [facility] [place] Start: 08-28-2022 End: 08-28-2022 ambulatory DO Yannick Velázquez Work Phone: [facility] Work Phone: Start: 08-28-2022 End: 08-28-2022 Patient encounter procedure DO Yannick Velázquez Work Phone: [facility]-MRI [facility] [place] Work Phone: Start: 08-07-2022 End: 08-07-2022 ambulatory Yannick Velázquez Other [email or web address] Other Start: 08-07-2022 Telephone encounter Yannick Velázquez [facility] [place] Start: 07-24-2022 End: 07-24-2022 ambulatory Yannick Velázquez Other [email or web address] Other Start: 07-24-2022 Telephone encounter Yannick Velázquez [facility] [place] Start: 07-19-2022 End: 07-19-2022 ambulatory Yannick Velázquez Other [email or web address] Other Start: 07-19-2022 Office outpatient vi sit 25 minutes Yannick Velázquez [facility] [place] Start: 07-03-2022 End: 07-04-[address] YANNICK VELÁZQUEZ Facility: Start: 07-03-2022 Telephone encounter Yannick Velázquez [facility] [place] Start: 06-24-2022 End: 06-24-2022 ambulatory Yannick Velázquez Other [email or web address] Other Start: 06-24-2022 Office outpatient vi sit 15 minutes Yannick Velázquez [facility] [place] Start: 06-24-2022 Telephone encounter Yannick Velázquez [facility] [place] Start: 05-29-2022 End: 05-29-2022 ambulatory Yannick Velázquez Other [email or web address] Other Start: 05-29-2022 Telephone encounter Yannick Velázquez [facility] [place] Start: 05-09-2022 End: 05-09-2022 ambulatory Yannick Velázquez Other [email or web address] Other Start: 05-09-2022 Telephone encounter Yannick Velázquez [facility] [place] Start: 04-10-2022 End: 04-10-2022 ambulatory Yannick Velázquez Other [email or web address] Other Start: 04-10-2022 Office outpatient vi sit 15 minutes Yannick Velázquez [facility] [place] Start: 03-26-2022 End: 03-26-2022 ambulatory Yannick Velázquez Other [email or web address] Other Start: 03-26-2022 Office outpatient vi sit 15 minutes Yannick Velázquez [facility] [place] Start: 03-20-2022 End: 03-21-[address] YANNICK VELÁZQUEZ Facility: Start: 02-15-2022 End: 02-15-2022 ambulatory Yannick Velázquez Other [email or web address] Other Start: 02-15-2022 Telephone encounter Yannick Velázquez [facility] [place] Start: 01-28-2022 End: 01-28-2022 Patient encounter procedure PSYCHOLOGIST-C Shara Cutler Work Phone: [facility] [place] Start: 01-28-2022 End: 01-28-2022 ambulatory Shara Cutler Other [email or web address] Other Start: 01-28-2022 Office outpatient vi sit 15 minutes Shara Cutler [facility] [place] Start: 01-11-2022 End: 01-11-2022 ambulatory Yannick Velázquez Other [email or web address] Other Start: 01-11-2022 Telephone encounter Yannick Velázquez [facility] [place] Start: 01-10-2022 End: 01-11-[address] YANNICK VELÁZQUEZ Facility:[facility] Start: 01-09-2022 End: 01-09-2022 ambulatory Yannick Velázquez Other [email or web address] Other Start: 01-09-2022 Office outpatient vi sit 15 minutes Yannick Velázquez [facility] [place] Start: 01-08-2022 End: 01-08-2022 ambulatory Yannick Velázquez Other [email or web address] Other Start: 01-08-2022 Telephone encounter Yannick Velázquez [facility] [place] Start: 12-24-2021 End: 12-24-2021 ambulatory Yannick Velázquez Other [email or web address] Other Start: 12-24-2021 Telephone encounter Yannick Velázquez [facility] [place] Start: 12-11-2021 End: 12-11-2021 ambulatory Yannick Velázquez Other [email or web address] Other Start: 12-11-2021 Office outpatient vi sit 15 minutes Yannick Velázquez [facility] [place] Start: 12-11-2021 Telephone encounter Yannick Velázquez [facility] [place] Start: 09-10-2021 End: 09-10-2021 ambulatory Yannick Velázquez Other [email or web address] Other Start: 09-10-2021 Office outpatient vi sit 15 minutes Yannick Velázquez [facility] [place] Start: 08-01-2021 End: 08-01-[address] YANNICK VELÁZQUEZ Facility:[facility] Start: 06-11-2021 End: 06-11-2021 ambulatory Yannick Velázquez Other [email or web address] Other Start: 06-11-2021 Office outpatient vi sit 15 minutes Yannick Velázquez [facility] [place] Start: 09-06-2020 End: 09-06-2020 Patient encounter procedure David Keane Work Phone: Urology Comment on above: Dysuria; Cystocele with prolapse; Nocturia Procedures Date Procedure Procedure Detail Performing Clinician Start: 01-18-2025 Us soft tissue head & neck real time imge docm Reza Gorman MD Work Phone: Start: 10-26-2024 Urine test visual color cmprsn [...] Generic External Data Provider Start: 01-07-2024 [facility] Start: 12-09-2023 Mri brain brain [...] [Identifier] in Cervix by Cyto stain Pcr [employer]station [employer] Start: 01-28-2022 X-ray of right foot PSYCHOLOGIST -C Shara Cutler Work Phone: Start: 09-06-2020 Urnls dip stick/tabl et rgnt auto w/o microscopy David Keane Work Phone: Start: 02-17-2020 Cystoscopy Florentin PEREZ section Florentin WONG Sherry Excision of bunion Florentin MATTSON Ligation of fallopian tube Shani NEVILLE Lysis of adhesions Florentin MATTSON Tonsillectomy Florentin NEVILLE Plan of Treatment Date Care Activity Detail Author Start: 12-19-2026 DTaP,Tdap and Td Vac cines (2 - Td or Tdap) DTaP,Tdap and Td Vaccines (2 - Td or Tdap) [facility] Start: 12-19-2026 DTaP/Tdap/Td Vaccine s (2 - Td or Tdap) DTaP/Tdap/Td Vaccines (2 - Td or Tdap) [facility] Start: 12-19-2026 Urine microalbumin profile DTaP,Tdap,Td Vaccine (2 - Td or Tdap) [facility] Start: 12-21-2025 Adult BMI Screening Adult BMI Screen ing [facility] Start: 12-21-2025 Tobacco Screening Tobacco Screening [facility] Start: 11-09-2025 Adult BMI Screening Adult BMI Screen ing [facility] Start: 11-09-2025 Tobacco Screening Tobacco Screening [facility] Start: 10-26-2025 Adult BMI Screening Adult BMI Screen ing [facility] Start: 10-26-2025 Tobacco Screening Tobacco Screening [facility] Start: 08-31-2025 Adult BMI Screening Adult BMI Screen ing [facility] Start: 08-31-2025 Tobacco Screening Tobacco Screening [facility] Start: 07-01-2025 Screening for malign ant neoplasm of breast Mammogram [facility] Start: 06-01-2025 Adult BMI Screening Adult BMI Screen ing [facility] Start: 06-01-2025 Tobacco Screening Tobacco Screening [facility] Start: 05-22-2025 Screening for malign ant neoplasm of cervix Pap Smear [facility] Start: 05-18-2025 Adult BMI Screening Adult BMI Screen ing [facility] Start: 05-18-2025 Tobacco Screening Tobacco Screening [facility] Start: 05-02-2025 End: 05-02-2025 Patient encounter procedure 05/02/2025 12:30 PM EDT Office Visit [facility] [address] [place] [id number] Maryse Zapata MD [address] [place] [address] [facility] Start: 03-07-2025 Influenza vaccination [facility] Start: 01-26-2025 End: 01-26-2025 Patient encounter procedure 01/26/2025 8:00 AM EDT Office Visit [facility] [address] [facility] [address] [place] [id number] Reza Gorman MD [address] [facility] [address] [place] [address] [facility] Start: 01-06-2025 Screening for malign ant neoplasm of breast [facility] Start: 12-21-2024 End: 12-21-2024 Patient encounter procedure 12/21/2024 8:30 AM EDT Office Visit [facility] [place] [place] [phone] Katia Whitt MD [address] [place], [place] [id number] [facility] Start: 11-09-2024 End: 11-09-2024 Patient encounter procedure 11/09/2024 11:30 AM EDT Office Visit [facility] [address] [place] [phone] Katia Whitt MD [address] [place], [place] [id number] [facility] Start: 10-26-2024 End: 10-26-2024 Patient encounter procedure 10/26/2024 3:00 PM EDT Procedure visit [facility] [address] [place] [id number] Katia Whitt MD [address] [place], [place] [id number] [facility] Start: 10-26-2024 End: 10-26-2025 Surgical Pathology Surgical Pathology Pathology and Cytology Routine Thickened endometrium Expected: 10/26/2024 (Approximate), Expires: 10/26/2025 [facility] Work Phone: Comment on above: Expected: 10/26/2024 (Approximate), Expires: 10/26/2025 Start: 09-29-2024 Adult BMI Screening Adult BMI Screen ing [facility] Start: 09-29-2024 Tobacco Screening Tobacco Screening [facility] Start: 08-31-2024 End: 08-31-2024 Patient encounter procedure 08/31/2024 3:45 PM EST Office Visit [facility] [address] [place] [phone] Katia Whitt MD [address] [place] [address] [facility] Start: 08-19-2024 End: 08-19-2024 Patient encounter procedure [facility] Start: 08-04-2024 End: 08-04-2024 Patient encounter procedure [facility] Comment on above: Arrived Start: 06-11-2024 End: 06-11-2024 Patient encounter procedure 06/11/2024 2:30 PM EST Appointment [facility] Nuclear Medicine [address] [place] [phone] [facility] Nuclear Medicine Start: 06-07-2024 End: 06-07-2025 MR Lumbar spine WO contrast MR lumbar spine wo contrast Imaging Routine Benign fasciculation-cramp syndrome Chronic low back pain, unspecified back pain laterality, unspecified whether sciatica present Expected: 06/07/2024 (Approximate), Expires: 06/07/2025 [facility] Comment on above: Expected: 06/07/2024 (Approximate), Expires: 06/07/2025 Start: 06-01-2024 End: 06-01-2025 US Pelvis transabdominal and transvaginal Ultrasound pelvic with transvaginal Imaging Routine Vaginal lesion Expected: 06/01/2024, Expires: 06/01/2025 [facility] Work Phone: Comment on above: Expected: 06/01/2024 , Expires: 06/01/2025 Start: 06-01-2024 End: 06-01-2024 Patient encounter procedure 06/01/2024 9:00 AM EST Procedure visit [facility] [address] [place] [phone] Katia Whitt MD [address] [place], [place] [phone] [facility] Start: 05-31-2024 End: 05-31-2025 Basic metabolic 1998 panel - Serum or Plasma Basic metabolic panel Lab Routine Restless legs Benign fasciculation-cramp syndrome Expected: 05/31/2024 (Approximate), Expires: 05/31/2025 [facility] Comment on above: Expected: 05/31/2024 (Approximate), Expires: 05/31/2025 Start: 05-31-2024 End: 05-31-2025 Ferritin [Mass/volume] in Serum or Plasma Ferritin Lab Routine Restless legs Benign fasciculation-cramp syndrome Expected: 05/31/2024 (Approximate), Expires: 05/31/2025 [facility] Comment on above: Expected: 05/31/2024 (Approximate), Expires: 05/31/2025 Start: 05-31-2024 End: 05-31-2025 Magnesium [Mass/volume] in Serum or Plasma Magnesium Lab Routine Restless legs Benign fasciculation-cramp syndrome Expected: 05/31/2024 (Approximate), Expires: 05/31/2025 [facility] Comment on above: Expected: 05/31/2024 (Approximate), Expires: 05/31/2025 Start: 05-31-2024 End: 05-31-2025 Niacin (vitamin B3) Niacin (vitamin B3) Lab Routine Restless legs Benign fasciculation-cramp syndrome Expected: 05/31/2024 (Approximate), Expires: 05/31/2025 [facility] Comment on above: Expected: 05/31/2024 (Approximate), Expires: 05/31/2025 Start: 05-31-2024 End: 05-31-2025 Phosphate [Moles/volume] in Serum or Plasma Phosphorus Lab Routine Restless legs Benign fasciculation-cramp syndrome Expected: 05/31/2024 (Approximate), Expires: 05/31/2025 [facility] Comment on above: Expected: 05/31/2024 (Approximate), Expires: 05/31/2025 Start: 05-31-2024 End: 05-31-2025 Protein electrophoresis, serum Protein electrophoresis, serum Lab Routine Restless legs Benign fasciculation-cramp syndrome Expected: 05/31/2024 (Approximate), Expires: 05/31/2025 [facility] Comment on above: Expected: 05/31/2024 (Approximate), Expires: 05/31/2025 Start: 05-31-2024 End: 05-31-2025 Thyrotropin [Units/volume] in Serum or Plasma TSH Lab Routine Restless legs Benign fasciculation-cramp syndrome Expected: 05/31/2024 (Approximate), Expires: 05/31/2025 [facility] Work Phone: Comment on above: Expected: 05/31/2024 (Approximate), Expires: 05/31/2025 Start: 05-31-2024 End: 05-31-2025 Vitamin B1 Vitamin B1 Lab Routine Restless legs Benign fasciculation-cramp syndrome Expected: 05/31/2024 (Approximate), Expires: 05/31/2025 [facility] Comment on above: Expected: 05/31/2024 (Approximate), Expires: 05/31/2025 Start: 05-31-2024 End: 05-31-2025 VITAMIN B12/FOLATE, SERUM PANEL VITAMIN B12/FOLATE, SERUM PANEL Lab Routine Restless legs Benign fasciculation-cramp syndrome Expected: 05/31/2024 (Approximate), Expires: 05/31/2025 [facility] Comment on above: Expected: 05/31/2024 (Approximate), Expires: 05/31/2025 Start: 05-31-2024 End: 05-31-2025 Vitamin B6 Vitamin B6 Lab Routine Restless legs Benign fasciculation-cramp syndrome Expected: 05/31/2024 (Approximate), Expires: 05/31/2025 [facility] Comment on above: Expected: 05/31/2024 (Approximate), Expires: 05/31/2025 Start: 05-31-2024 End: 05-31-2024 Patient encounter procedure [facility] Comment on above: Arrived Start: 05-25-2024 End: 05-25-2024 Patient encounter procedure 05/25/2024 2:30 PM EST Office Visit [facility] [place] [address] [place] [address] [facility] [place] Start: 05-18-2024 End: 05-18-2025 Bacteria identified in Urine by Culture Urine Culture Microbiology Routine Urinary urgency Expected: 05/18/2024 (Approximate), Expires: 05/18/2025 [employer] Work Phone: Comment on above: Expected: 05/18/2024 (Approximate), Expires: 05/18/2025 Start: 05-18-2024 End: 05-18-2025 DXA Skeletal system Views for bone density Dexa scan central skeletal Imaging Routine Screening for osteoporosis Postmenopausal Hx of osteopenia Expected: 05/18/2024, Expires: 05/18/2025 [facility] Comment on above: Expected: 05/18/2024 , Expires: 05/18/2025 Start: 04-15-2024 End: 04-15-2025 Multiple sleep latency test Multiple sleep latency test Sleep Center Routine Hypersomnia Sleep disturbance Catathrenia Sleep talking Expected: 04/15/2024 (Approximate), Expires: 04/15/2025 [facility] Comment on above: Expected: 04/15/2024 (Approximate), Expires: 04/15/2025 Start: 04-15-2024 End: 04-15-2025 Polysomnography Polysomnography Sleep Center Routine AB (obstructive sleep apnea) Expected: 04/15/2024 (Approximate), Expires: 04/15/2025 [facility] Work Phone: Comment on above: Expected: 04/15/2024 (Approximate), Expires: 04/15/2025 Start: 04-15-2024 End: 04-15-2024 Patient encounter procedure 04/15/2024 11:00 AM EDT Office Visit [facility] [address] [address] Suzanne Gee DO [address] [place] [address] Arrived [facility] Comment on above: Arrived Start: 03-24-2024 Patient referral [facility] Work Phone: Start: 03-23-2024 End: 03-23-2024 Patient encounter procedure 03/23/2024 3:00 PM EDT Office Visit Neurology [address] [place] [address] Janna Gilman MD [address] [place], [place] [id number] CONSULT TO NEUROLOGY Neurology Comment on above: CONSULT TO NEUROLOGY Start: 03-23-2024 End: 06-22-[address] WITH REFLEX [facility] Work Phone: Comment on above: Expected: 03/23/2024 , Expires: 06/22/2024 Start: 03-23-2024 End: 06-22-2024 Ceruloplasmin [Mass/volume] in Serum or Plasma [facility] Comment on above: Expected: 03/23/2024 , Expires: 06/22/2024 Start: 03-23-2024 End: 06-22-2024 COPPER BLOOD [facility] Comment on above: Expected: 03/23/2024 , Expires: 06/22/2024 Start: 03-23-2024 End: 06-22-2024 IMMUNOFIXATION SCREEN, SERUM [facility] Comment on above: Expected: 03/23/2024 , Expires: 06/22/2024 Start: 03-23-2024 End: 06-22-2024 KAPPA/SORIANO,FREE,SER [facility] Comment on above: Expected: 03/23/2024 , Expires: 06/22/2024 Start: 03-23-2024 End: 06-22-2024 Zinc [Mass/volume] in Serum or Plasma [facility] Comment on above: Expected: 03/23/2024 , Expires: 06/22/2024 Start: 03-07-2024 Covid-19 Vaccine ( season) Covid-19 Vaccine () [facility] Start: 03-07-2024 Covid-19 Vaccine ( season) Covid-19 Vaccine () [facility] Start: 03-07-2024 Influenza vaccination C [facility] Start: 01-07-2024 End: 01-06-2025 NM Guidance limited for localization of tumor NM Molecular breast imaging localization limited area Imaging Routine Heterogeneously dense tissue of both breasts on mammography Expected: 01/07/2024, Expires: 01/06/2025 [employer] Work Phone: Comment on above: Expected: 01/07/2024 , Expires: 01/06/2025 Start: 01-05-2024 End: 01-05-2024 Patient encounter procedure 01/05/2024 9:00 AM EDT Appointment [facility] - Mammogram DEXA [address] [place] [id number] [facility] - Mammogram DEXA Start: 01-03-2024 Screening for malign ant neoplasm of breast Mammogram Screening [facility] Start: 12-12-2023 End: 12-12-2023 Patient encounter procedure 12/12/2023 10:50 AM EDT Office Visit [facility] [address] [place] [address] [place] [address] [place] [address] mri (3) follow up [facility] Comment on above: mri (3) follow up Start: 12-09-2023 End: 12-09-2023 Patient encounter procedure 12/09/2023 10:40 AM EDT Appointment Radiology [address] [place], [place] [id number] 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] Radiology Comment on above: 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 ] Start: 12-09-2023 End: 12-09-2023 Patient encounter procedure Radiology Comment on above: 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 ] Start: 11-25-2023 End: 11-25-2023 Patient encounter procedure 11/25/2023 2:10 PM EDT Office Visit [facility] [address] [place] [address] [place] [address] [place] [address] MRI follow ups [facility] Comment on above: MRI follow ups Start: 11-16-2023 End: 11-16-2023 Patient encounter procedure 11/16/2023 1:20 PM EDT Appointment [facility] [place] [address] [place] [address] 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]; Demyelinating disease of central nervous system (HCC) [G37.9] [facility] MRI Comment on above: 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 ]; Demyelinating disease of central nervous system (HCC) [G37.9] Start: 11-16-2023 End: 11-16-2023 Patient encounter procedure [facility] MRI Comment on above: 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 ]; Demyelinating disease of central nervous system (HCC) [G37.9] Start: 09-30-2023 End: 09-29-2024 US Pelvis transabdominal and transvaginal Ultrasound pelvic with transvaginal Imaging Routine PMB (postmenopausal bleeding) Expected: 09/30/2023, Expires: 09/29/2024 [employer] Work Phone: Comment on above: Expected: 09/30/2023 , Expires: 09/29/2024 Start: 07-07-2023 Behavioral Health Screening Behavioral Health Screening [facility] Start: 03-07-2023 Covid-19 Vaccine ( season) Covid-19 Vaccine ( season) [facility] Start: 03-07-2023 Influenza vaccination Influenza Vacc ine [facility] Start: 03-07-2020 Influenza vaccination INFLUENZA (#1) [facility] Start: 2016 Administration of varicella zoster vaccine Zoster (Shingles) Vaccine (1 of 2) [facility] Start: 2016 Pneumococcal vaccination Pneum ococcal Vaccine (1 of 1 - PCV) [facility] Start: 2016 Pneumococcal Vaccine : 50+ (1 of 1 - PCV) Pneumococcal Vaccine: 50+ (1 of 1 - PCV) [facility] Start: 2016 Screening for malign ant neoplasm of colon [facility] Start: 2016 SHINGRIX VACCINE (1 of 2) PATEL GRIX VACCINE (1 of 2) [facility] Start: 2016 Zoster Vaccines (1 of 2) Zoster Vacc rian (1 of 2) [facility] Start: 10-11-2011 DIABET[facility]CREEN [facility] Start: 10-11-2011 Diabetes Screening Diabetes Screenin g [facility] Start: 10-11-2011 Lipid panel Lipid Screening [facility] Start: 10-11-2011 LIPID SCREEN LIPID SCREEN [facility] Start: 10-11-2011 Screening for malign ant neoplasm of colon [facility] Start: 2006 Mammography MAMMOGRAM [facility] Start: 1996 HPV TESTING HPV TESTING [facility] Start: 1996 Screening for malign ant neoplasm of cervix HPV Testing [facility] Start: 10-11-1987 PAP TESTING PAP TESTING [facility] Start: 10-11-1987 Screening for malign ant neoplasm of cervix [facility] Start: 1985 Hepatitis B Vaccine (1 of 3 - 19+ 3-dose series) Hepatitis B Vaccine (1 of 3 - 19+ 3-dose series) [facility] Start: 1985 Hepatitis B Vaccines (1 of 3 - 19+ 3-dose series) Hepatitis B Vaccines (1 of 3 - 19+ 3-dose series) [facility] Start: 1985 Urine microalbumin profile DTAP,TDAP,TD (1 - Tdap) [facility] Start: 1984 Anxiety Screening Anxiety Screening [facility] Start: 1984 Depression Screening Depression Scre ening [facility] Start: 1984 HEPATITIS C SCREENING HEPATITIS C [facility] Start: 1984 Hepatitis C screening Hepatitis C [facility] Start: 1984 HIV SCREENING HIV SCREENING [facility] Start: 1984 HIV screening HIV Screening [facility] Start: 1978 Adult depression screening assessment DEPRESSION SCREENING [facility] Start: 10-11-1967 MMR Vaccines (1 of 1 - Standard series) MMR Vaccines (1 of 1 - Standard series) [facility] Start: 1966 HIV screening HIV Screening [facility] Start: 1966 Lipid panel Lipid Panel [facility] Start: 1966 Screening for malign ant neoplasm of colon [facility] Start: 1966 Yearly Adult Physical Yearly Adult P hysical [facility] Comprehensive metabo lic 2000 panel - Serum or Plasma [facility] End: 12-01-2024 CT for calcium scoring WO contrast and CTA W contrast IV Heart and coronary arteries [facility] Service Area Work Phone: Comment on above: Once for 1 Occurrenc es starting 12/01/2024 until 12/01/2024 CT Heart [facility] End: 06-05-2025 MR Brain WO and W contrast IV MRI BRAIN WO/W IVCON Radiology Routine Brain cyst 1 Occurrences starting 05/06/2024 until 06/05/2025 [facility] Work Phone: Comment on above: 1 Occurrences starti ng 05/06/2024 until 06/05/2025 End: 11-25-2024 MR Brain WO contrast MRI BRAIN WO IVCON Radiology Routine Hyperreflexia Demyelinating disease of central nervous system (HCC) 1 Occurrences starting 10/27/2023 until 11/25/2024 [facility] Comment on above: 1 Occurrences starti ng 10/27/2023 until 11/25/2024 End: 11-25-2024 MR Cervical spine WO contrast MRI CERVICAL SPINE WO IVCON Radiology Routine Hyperreflexia Neuromuscular scoliosis of thoracic region Chiari I malformation (HCC) Spinal stenosis of cervical region Syringomyelia and syringobulbia (HCC) Demyelinating disease of central nervous system (HCC) 1 Occurrences starting 10/27/2023 until 11/25/2024 [facility] Work Phone: Comment on above: 1 Occurrences starti ng 10/27/2023 until 11/25/2024 End: 11-25-2024 MR Thoracic spine WO contrast MRI THORACIC SPINE WO IVCON Radiology Routine 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) Demyelinating disease of central nervous system (HCC) 1 Occurrences starting 10/27/2023 until 11/25/2024 [facility] Comment on above: 1 Occurrences starti ng 10/27/2023 until 11/25/2024 Patient Education Radiculopathy (DC) [facility] Work Phone: Patient referral [facility] Work Phone: T3 reverse measurement [facility] End: 05-18-2025 Urinalysis Urinalysis Lab Routine Urinary urgency 1 Occurrences starting 05/18/2024 until 05/18/2025 [email or web address] Comment on above: 1 Occurrences starti ng 05/18/2024 until 05/18/2025 US Abdomen limited [facility] XR Chest 2 Views [facility] XR Thoracic spine 3 Views [facility] Immunizations Immunization Date Immunization Notes Care Provider Sindy sorensen 12-19-2016 tetanus toxoid, reduced diphtheria toxoid, and acellular pertussis vaccine, adsorbed Yannick Velázquez [facility] NEGATED: Highlighted row has not occurred!06-11-2021 influenza, seasonal, injectable Patient Objection Yannick Velázquez [facility] Payers Date Payer Category Payer Self-pay [id number] 2023 Managed Care (Private) [employer] SU[employer] MED [id number] 2014 Commercial Managed C [facility] - [facility] [employer] [id number] 2014 Private Health Insurance [id number] .[id number]. [id number] 2014 Unknown 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 [id number] 2014-Present PPO [id number]. [id number] 2014 Unknown 1966 Unknown [id number] 2.16.840.1.405342.3.579.2. 593 1966 Unknown [id number] 2.16.840.1.259773.3.579.2. 593 1966 Unknown [id number] 2.16.840.1.372886.3.579.2. 593 1966 Unknown [id number] 2.16.840.1.393826.3.579.2. 593 1966 Unknown [id number] 2.16.840.1.459897.3.579.2. 196 1966 Unknown [id number] 2.16840.1.638382.3.579.2. 1286 1966 Unknown [id number] 2.16840.1.107464.3.579.2. 727 1966 Unknown [id number] 2.840.1.555915.3.579.2. 128 1966 Unknown [id number] 2.840.1.930102.3.579.2. 128 1966 Unknown [id number] 2.840.1.553340.3.579.2. 1285 1966 Unknown [id number] 2.16840.1.575375.3.579.2. 1285 1966 Unknown [id number] 2.840.1.722709.3.579.2. 128 1966 Unknown [id number] 2.840.1.492402.3.579.2. 128 1966 Unknown [id number] 2.840.1.405289.3.579.2. 128 1966 Unknown [id number] 2.16840.1.249236.3.579.2. 1285 1966 Unknown [id number] 2.16840.1.396383.3.579.2. 128 1966 Unknown [id number] 2.16840.1.565317.3.579.2. 1246 1966 Unknown [id number] 2.16840.1.492430.3.579.2. 1285 1966 Unknown [id number] 2.16.840.1.948138.3.579.2. 128 1966 Unknown [id number] 2.16840.1.215593.3.579.2. 1285 1966 Unknown [id number] 2.16840.1.946662.3.579.2. 128 1966 Unknown [id number] 2.840.1.067804.3.579.2. 1285 1966 Unknown [id number] 2.840.1.864168.3.579.2. 1285 1966 Unknown [id number] 2.840.1.950374.3.579.2. 1285 1966 Unknown [id number] 2.840.1.977638.3.579.2. 9 1966 Unknown [id number] 2.840.1.267413.3.579.2. 1258 1966 Unknown [id number] 2.840.1.308441.3.579.2. 9 1966 Unknown [id number] 2840.1.432469.3.579.2. 1258 1966 Unknown [id number] 2.840.1.622629.3.579.2. 1259 1959 Unknown [id number] 2840.1.199640.19 Unknown [id number] 2.840.1.148081.3.579.2. 531 Social History Date Type Detail Facility Start: 09-06-2020 End: 09-17-2023 Tobacco smoking status VAIS Never smoker [facility] Start: 09-06-2020 End: 10-21-2023 Tobacco use and exposure Never used [facility] Start: 09-06-2020 End: 03-08-2025 Alcohol intake Current drinker of alcohol (finding) [facility] Start: 09-06-2020 End: 12-12-2023 Alcohol intake [facility] Start: 1965 Sex Assigned At Female [facility] Start: 11-21-2024 End: 12-01-2024 Exposure to SARS-CoV-2 (event) Not sure [facility] Start: 10-21-2023 End: 12-12-2023 Sex Assigned At [facility] Start: 06-07-2012 Adult Depression Screening Assessment 0 [facility] Start: 09-06-2020 Gender identity Identifies as female gender (finding) [facility] Start: 09-06-2020 Sexual orientation Heterosexual (finding) [facility] Start: 03-23-2024 Alcohol Comment 1x/week [facility] How often to you hav e a drink containing alcohol? Monthly or less [facility] Start: 02-04-2024 Alcohol Comment Socially [facility] Start: 1965 Sex assigned at Not on file [facility] Start: 05-08-2022 Alcohol Comment twice a month [facility] Start: 02-09-2015 End: 10-20-2024 Sex Female (finding) [facility] Tobacco smoking stat [facility] Tobacco smoking consumption unknown [facility] Work Phone: How often to you hav e a drink containing alcohol? 2-4 times a month [facility] Work Phone: Functional Status Date Assessment Result Facility 04-20-2024 Functional Status N/A [facility] Clinical Notes 06-11-2021 to 03-08-2025 Patient InstructionsYannick Harper DO - 03/08/2025 1:07 PM EDT Note Date & Type Note Facility 03-08-2025 Instructions Yannick Harper DO - 03/08/2025 2:19 PM EDT Greetings Edna, It was a pleasure meeting you today. You were evaluated for reported visual symptoms with the concern for possible migraine etiology. Overall given the description of your symptoms this seems unlikely to be related to migraine headaches or migraine disorder. 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 Labs: None Imaging: None Education: Recommend talking to primary care provider regarding blood pressure control Referrals: Agree w/ regular production inspector or neuro-ophthalmology evaluation Medications: No new medications at this time Follow Up: as needed Please reach out with any further questions or concerns via MyChart. Dr. Harper DO documented in this encounter [facility] 03-08-2025 Note HNO ID: [id number] Author: LAURA CHILDERS MD Service: ? Author Type: Fellow Type: Progress Notes Filed: 03/08/2025 14:46 Note Text: [facility]ache [facility] [place] Date: March 08, 2025 Patient Name: Edna Sultana Referring physician: Janna Gilman [address] [facility] [address] Reason for Evaluation: Headaches HPI: Edna Sultana is a 59 YO F w/ benign fasciculation syndrome, PLM, and bilateral posterior vitreous detachment w/ reported chronic photophobia, sinus congestion, chronic back pain presenting for new patient evaluation of visual symptoms. Referred by Dr. Gilman (last seen 03/23/2024), previously following for evaluation of fasciculations/burning pain in b/l LE. Workup other unremarkable with MRI brain 06/2024 noting unchanged T2/ FLAIR hyperintense lesion in anterior R temporal lobe unchanged from 12/09/23. > Other workup includes MRI C/T spine w/o evidence of demyelination or cord compression; mild degenerative changes in C spine. Lab noted mild B12 deficiency; attempted supplementation without improvement of fasciculations. B1, B6 WNL. Celiac, Ceruloplasmin, Copper, Zinc, Immunofixation/[place]/Lambda. 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 04/2023 L eye started w/ curved pattern/white flashes and floaters; no headache lasted over multipled hours or days and confirmed by eye Appears per 10/2024 discussion - patient began reporting pulsatile changes in R eye floaters constant and possibly associated w/ heart rate/blood pressure. Prompting headache consultation. Patient reports occasional mild headaches about 1x month throughout her entire life relatively unchanged. She reports variable distribution sometimes unilateral, occasionally holocephalic. Dull ache mild severity 4/10 for a few hours. Denied associated migrainous features but does endorse chronic photophobia and chronic congestion without phonophobia or nausea. Typically resolves w/ sudafed and ibuprofen (roughly 2x per month). Relatively unchanged over last 8-10 years. No preceeding visual auras or prodromal symptoms. No clear triggers. Describes L eye posterior vitreous detachment occurring 04/2023 confirmed by Optho and R eye posterior vitreous detachment occurring 04/2024. Reports rather abrupt onset of peripheral crescent shaped pattern with substantial increase in floaters out of corresponding eye constant and unrelenting for days prompting initial evaluation. No associated headache. She reports in September 2024 began noticing new visual symptoms with some difficulty describing. Reports monocular R eye floaters began changing hue of their color becoming more dark and that this change seemed to correlate with pulse of her heart rate or during times of elevated blood pressure. She reports this is constant and chronic since September 2024 and that she has become used to this phenomena to the poin that she sometimes forgets its there. No associated headache and no clear episodic nature to these symptoms. She also endorses seeing long squiggles in all directions out of R eye particularly evident when looking straight ahead, at a light or in the vazquez. She states they resemble little snakes or parasites but knows they probably are not in actuality. Additional history: She reports 2 episodes of prior migraine throughout her life each preceeded by reported visual aura described as zigzag rainbow pattern which resolved within a few hours. She recounts a headache following these two episodes but does not recall any other specifics. States first occurred around age 31 while staring at computer screen and the other many years ago prompting an ER visit to r/o stroke. She reports being seen by Ophthalmology in 11/2024 but does not recall specifics - unable to find results; occurred OSH. 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 [facility] 03-08-2025 History of Presen t illness Narrative Images from the original note were not included. Headache [facility] [place] Date: March 08, 2025 Patient Name: Edna Sultana Referring physician: Janna Gilman [address] [facility] [address] Reason for Evaluation: Headaches HPI: Edna Sultana is a 59 YO F w/ benign fasciculation syndrome, PLM, and bilateral posterior vitreous detachment w/ reported chronic photophobia, sinus congestion, chronic back pain presenting for new patient evaluation of visual symptoms. Referred by Dr. Gilman (last seen 03/23/2024), previously following for evaluation of fasciculations/burning pain in b/l LE. Workup other unremarkable with MRI brain 06/2024 noting unchanged T2/ FLAIR hyperintense lesion in anterior R temporal lobe unchanged from 12/09/23. > Other workup includes MRI C/T spine w/o evidence of demyelination or cord compression; mild degenerative changes in C spine. Lab noted mild B12 deficiency; attempted supplementation without improvement of fasciculations. B1, B6 WNL. Celiac, Ceruloplasmin, Copper, Zinc, Immunofixation/[place]/Lambda. 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 04/2023 L eye started w/ curved pattern/white flashes and floaters; no headache lasted over multipled hours or days and confirmed by eye Appears per 10/2024 discussion - patient began reporting pulsatile changes in R eye floaters constant and possibly associated w/ heart rate/blood pressure. Prompting headache consultation. Patient reports occasional mild headaches about 1x month throughout her entire life relatively unchanged. She reports variable distribution sometimes unilateral, occasionally holocephalic. Dull ache mild severity 4/10 for a few hours. Denied associated migrainous features but does endorse chronic photophobia and chronic congestion without phonophobia or nausea. Typically resolves w/ sudafed and ibuprofen (roughly 2x per month). Relatively unchanged over last 8-10 years. No preceeding visual auras or prodromal symptoms. No clear triggers. Describes L eye posterior vitreous detachment occurring 04/2023 confirmed by Optho and R eye posterior vitreous detachment occurring 04/2024. Reports rather abrupt onset of peripheral crescent shaped pattern with substantial increase in floaters out of corresponding eye constant and unrelenting for days prompting initial evaluation. No associated headache. She reports in September 2024 began noticing new visual symptoms with some difficulty describing. Reports monocular R eye floaters began changing hue of their color becoming more dark and that this change seemed to correlate with pulse of her heart rate or during times of elevated blood pressure. She reports this is constant and chronic since September 2024 and that she has become used to this phenomena to the poin that she sometimes forgets its there. No associated headache and no clear episodic nature to these symptoms. She also endorses seeing long squiggles in all directions out of R eye particularly evident when looking straight ahead, at a light or in the vazquez. She states they resemble little snakes or parasites but knows they probably are not in actuality. Additional history: She reports 2 episodes of prior migraine throughout her life each preceeded by reported visual aura described as zigzag rainbow pattern which resolved within a few hours. She recounts a headache following these two episodes but does not recall any other specifics. States first occurred around age 31 while staring at computer screen and the other many years ago prompting an ER visit to r/o stroke. She reports being seen by Ophthalmology in 11/2024 but does not recall specifics - unable to find results; occurred OSH. 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: smoking- no, drug use- no, alcohol use - occasional Caffeine use: 1-2 cups per day Hydration: Room for improvement Diet: Gluten free/low sugar/low diary Sleep: 9-10PM until 3AM - Onset/Disruption: disruptions - Bruxism/Snoring: Minimal snoring; previous PSG OSH very mild AB and PLM Exercise: Room for improvement Menstruation/Menopause: 6 years post menopausal OTC medication use: Ibuprofen 800mg few times a week for back pain Fhx: Migraines: Sister Aneurysm: Brain tumor: Neurologic condition: Previous records Reviewed (physician notes, laboratory reports, and radiology reports) and imaging studies were reviewed and summarized. (May be copy forwarded) Previous testing: MRI Brain w/wo 06/10/2024 IMPRESSION: Unchanged examination. Nonenhancing T2/FLAIR hyperintense lesion in the anterior right temporal lobe is unchanged from 12/09/2023. MRI C-spine 12/09/2023 IMPRESSION: No evidence of demyelinating disease within the cervical spine. Mild multilevel degenerative changes with no substantial canal or foraminal stenosis. No spinal cord signal abnormality identified. Incidental 1.7 cm T2 hyperintense lesion is present in the left thyroid lobe. Recommend thyroid ultrasound for further evaluation. Anatomic Variant: None. Assume 7 cervical vertebrae with counting from the craniocervical junction. MRI T-spine 12/09/2023 IMPRESSION: No evidence of demyelinating disease within the thoracic spine. No substantial canal stenosis or cord signal abnormality. For the purposes of this report, L4-5 is considered the level of the iliac crest and there are 5 lumbar-type vertebrae. Anatomic variant: Assume 11 thoracic, rib bearing vertebrae to accommodate counting discrepancies from the craniocervical and lumbosacral junctions. Prior Therapies Duration of Use Dose Side effect Other Therapies Chiropractic for back pain Physical therapy for back pain Anti-Anxiety Clonazepam (Klonopin) for PLM Anti-Depressant and Antipsychotic Sertraline (Zoloft) years intermittent Muscle Relaxer Cyclobenzaprine (Flexeril) >10 years ago Sleep Aids Melatonin 5mg 5 nights a week Supplements Magnesium Citrate 800mg QHS 3x week Melatonin Over the Counter Medications Ibuprofen (Advil, Motrin) Current Medications: Confirmed in chart with the patient Allergies: ALLERGIES Allergen Reactions Adhesive Itching, Rash, Swelling Adhesive Tape-Silic* Rash, Hives Fluorouracil-Adhesi* Rash Past Surgical History PAST SURGICAL HISTORY Procedure Laterality Date BUNIONECTOMY, LAPIDUS-TYPE SECTION HX F PER LYSIS ADHES TONSILLECTOMY AND ADENOIDECTOMY HX HEADACHE SCORES: 03/07/2025 Headache Questions ID Migraine Screener: 0 (Negative) ER visits in the last year: 0 Hospital stays in the last year: 0 Limited ADLs in the last month: 0 Days missed from work or school in the last month: 0 Days headache pain free in the last month: 27 Days per month with ALL of the following symptoms - decreased productivity, light sensitivity and nausea: 0 PRN medication usage in the last month: 2 03/07/2025 HIT-6 HIT-6 44 (Little or no impact) 03/22/2024 03/07/2025 OSITO - 2/7 SCORES OSITO-2 Score 3 1 OSITO-7 Score 5 Physical Exam: Vital Signs: BP 167/90 (BP Site: Right Arm, BP Position: Sitting, BP Cuff Size: Regular Adult) Pulse 89 Wt 67 kg (147 lb 11.3 oz) SpO2 99% BMI 20.60 kg/m General: well appearing, in no acute distress, alert Pain Behaviors: no pain behaviors observed Skin: Color, texture, turgor normal. No rashes or lesions HEENT: Normocephalic/atraumatic. Musculoskeletal: No gross joint deformities. Neurological: MENTAL STATUS: Alert and oriented to self, floor, month and situation. Attention span and concentration are good. Thought process and content normal. Follows 1 step commands appropriately. Speech fluent. No evidence of dysarthria. CN: II: Visual green intact. Pupils equal and round and reactive to light briskly. Funduscopic exam limited given pupillary size. III, IV, : EOMI. No ptosis present. V: Symmetric facial sensation to light touch VII: Face symmetric without evidence of weakness. VIII: Hearing intact. X, X: Symmetric palatal rise. XI: shoulder shrug activation symmetric. XII: Tongue protrudes midline with normal movements. No atrophy or fasciculations of the tongue. Motor Exam: Normal muscle tone and bulk. No evidence of atrophy or fasciculations UE drift: Absent Delt Biceps Triceps Right 5/5 5/5 5/5 Left 5/5 5/5 5/5 Hip Flex BiFem (knee flex) Quads (knee ext) Right 5/5 5/5 5/5 Left 5/5 5/5 5/5 Tremor: absent. MUSCLE STRETCH REFLEXES: RIGHT: LEFT: Biceps 2+ Biceps 2+ Patellar 2+ Patellar 2+ Clonus absent Sensation: Sensation is intact to light touch in the upper and lower extremities. Coordination: Finger-to- nose-finger intact bilaterally Gait: Patient's gait is normal, romberg negative HEADACHE EXAM: - Current headache: - symmetric pROM of neck in sidebending, rotation, and flex/extension - no cervical paraspinal and no trapezius hypertonicity b/l - no tenderness at temporalis - no tenderness to palpation in occipital notches - no tenderness to palpation during TMJ testing over b/l masseter and TMJ - mild presence of clicking and jaw dislocation IMPRESSION: Edna Sultana is a 59 YO F w/ benign fasciculation syndrome, PLM, and bilateral posterior vitreous detachment w/ reported chronic photophobia, sinus congestion, chronic back pain presenting for new patient evaluation of visual symptoms. As noted above patient describes prior mild occasional headaches of variable distribution with dull ache occurring 0-1x month lasting a few hours typically resolving either spontaneously or with combination of sudafed/ibuprofen. No obvious associated migrainous symptoms but did not chronic photophobia and congestion. She reports these headaches have no preceeding aura and have been stable and unchanged in quality, severity and frequency for > 10 years. She also recounts 2 episodes throughout her life which do appear consistent with visual aura (detailing transient zigzag rainbow pattern) followed by headache but does not recount specifics. Today she is seen for new onset visual symptoms which began this past September described as a monocular constant floaters out of R eye which seem to become slightly darker correlating with a pulsatile pattern. She reports this has been constant since September 2024 denied associated headache or other migrainous symptoms. She also endorsed seeing long squiggly floaters out of R eye when staring at vazquez or light. She has learned to ignore these symptoms and they are not interfering with daily life. Regarding the etiology of these visual symptoms given their description of these symptoms, lack of correlating headache and the chronic nature in the setting of bilateral posterior vitreous detachment (more recently R eye 04/2024) it is unlikely these symptoms are related to migrainous headaches or primary headache disorder. For now offered patient reassurance. No further labs, imaging or medication changes. Recommend follow up with Ophthalmology for further care. Can follow up as needed with headache clinic. Diagnosis: Undifferentiated visual symptoms - unlikely to be related to migraine/headache disorder Treatment Plan: Labs: None Imaging: None Education: Recommend talking to primary care provider regarding blood pressure control Referrals: Agree w/ regular production inspector or neuro-ophthalmology evaluation Medications: No new medications at this time Follow Up: as needed Education: Discussed lifestyle modification including increased oral hydration, decreased caffeine, exercise and stress management. Treatment options including preventive and acute medications, natural supplements, and infusion therapy were discussed during the visit and in the after visit summary documentation. If applicable - we discussed medication overuse headache and to limit use of acute treatments to no more than 2 days/week or 10 days/month, also outlined in the AVS. The medication side effects, adverse reactions and drug interactions for prescribed medications were reviewed. Written educational materials and patient instructions outlining the above were given in AVS. All questions answered Yannick Harper, DO PGY-5 Headache Medicine Fellow CNR, Headache & Facial Pain Section [facility] STAFF PHYSICIAN NOTE OF PERSONAL INVOLVEMENT IN CARE I personally have reviewed the history and physical obtained and documented by the resident/fellow and I have examined the patient.The pertinent lab, radiology and/or other diagnostic test(s) were reviewed. I have discussed the management options and their respective risks and benefits with the patient. The necessary revisions in the above documentation were made in italics and the note reflects my input. I discussed the case and the plans with Dr. Harper, and I fully agree with the recommendations as outlined above. We spent a total of 60 minutes on the date of the service, with more than 50% of the time devoted to patient counseling. My impression and recommendations were discussed at length with the patient (and family members, if present). The patient and family (if present) voiced understanding to my recommendations. All questions were answered. The patient was provided with a detailed after visit summary highlighting my impression and recommendations. Medical decision making was high complexity due to patient's multiple symptoms including pain as evidenced by exam, and necessary counseling, and answering of patient and/or family questions. Undifferentiated left eye floaters. Description of visual change not consistent with migraine aura. No associated headache Reassurance provided. No additional workup or treatment recommended Laura Childers MD Staff Neurologist Headache &Facial Pain Section 03/08/2025 documented in this encounter [facility] 02-08-2025 Evaluation note Authored February 08, 2025 1:3 4pm The above note written by __ _Prabhjot Tafoya____ acting as human recorder, note dictated by Dr. Layne .I performed the above HPI, ROS, and Examination. I formulated and dictated the treatment plan and was present for entire encounter. Yannick Velázquez D.O. Author [facility] Authored March 22, 2025 3:41pm The above note written by __ _Prabhjot Tafoya____ acting as human recorder, note dictated by Dr. Layne .I performed the above HPI, ROS, and Examination. I formulated and dictated the treatment plan and was present for entire encounter. Yannick Velázquez D.O. [facility] Work Phone: [phone]) 573-914907-23-2025 History of Present illness Narrative* Reza Gorman MD - 01/26/2025 8:00 AM EDT Subjective Patient ID: Edna Sultana is a 59 y.o. female who presents for Thyroid Nodule (6 month ultrasound 01/18/25) Thyroid US shows [id number] LT nodule compared to [id number] one year ago. Family History Problem Relation Name Age of Onset Thyroid disease Mother Poppy Hypertension Mother Poppy Dementia Mother Poppy Anxiety disorder Mother Poppy Hyperlipidemia Mother Poppy Cancer Father King Hypertension Father King Diabetes Maternal Grandmother Amanda Cancer Maternal Grandmother Amanda Cancer Maternal Grandfather Kobi Depression Maternal Grandfather Kobi Pernicious anemia Paternal Grandmother Cancer Paternal Grandfather David Active Ambulatory Problems Diagnosis Date Noted Thyroid cyst 01/09/2023 Anxiety 01/09/2023 Nontoxic multinodular goiter 07/30/2023 Allergic rhinitis 01/26/2025 Chiari malformation type I (HCC) 01/26/2025 Chronic pain 01/26/2025 Heart murmur 01/26/2025 Heterogeneously dense tissue of both breasts on mammography 01/07/2024 Neuropathy 01/26/2025 RLS (restless legs syndrome) 01/26/2025 Subcutaneous nodule of abdominal wall 01/26/2025 Tremor 01/26/2025 Urethral stricture 01/26/2025 Vitamin B 12 deficiency 01/26/2025 Vitamin D deficiency 01/26/2025 Resolved Ambulatory Problems Diagnosis Date Noted Cystocele with prolapse 09/06/2020 Dysuria 09/06/2020 Incomplete emptying of bladder 01/09/2023 Microscopic hematuria 01/09/2023 Nocturia 09/06/2020 Right flank pain 01/09/2023 Right sided abdominal pain 01/09/2023 Urinary urgency 01/09/2023 Past Medical History: Diagnosis Date Anemia History of panic attacks Insomnia Numbness Sleep difficulties 8 years ago Spinal stenosis Tinnitus 2 years ago Past Surgical History: Procedure Laterality Date SECTION, CLASSIC [address] Dunn CYSTOSCOPY 02/17/2020 with urethral dilation, Dr. Duane REYNA BUNIONECTOMY Bilateral 1992 TONSILLECTOMY TUBAL LIGATION Allergies Allergen Reactions Nitrofurantoin Other Reaction(s): diarrhea Wound Dressing Adhesive Rash Current Outpatient Medications on File Prior to Visit Medication Sig Dispense Refill ALPRAZolam (Xanax) 0.25 MG tablet Take 0.5 tablets by mouth as needed in the morning and 0.5 tablets as needed at noon and 0.5 tablets as needed in the evening for anxiety. b complex-folic acid tablet Take 1 tablet by mouth Daily magnesium oxide (Mag-Ox) 400 mg tablet Take 400 mg by mouth Daily progesterone 200 MG capsule TAKE 1 CAPSULE (200 MG) BY MOUTH IN THE MORNING No current facility-administered medications on file prior to visit. Objective Last Recorded Vitals Vitals: 01/26/25 0811 BP: 120/80 Pulse: 79 ENT Physical Exam Constitutional Appearance: patient appears well-developed, well-nourished and well-groomed, Communication/Voice: communication appropriate for developmental age; vocal quality normal; Assessment/Plan Diagnoses and all orders for this visit: Thyroid nodule Stable dominant nodule. Start annual US documented [id number] Miscellaneous Notes* Telephone Encounter - Eugenio Brown CMA - 01/13/2025 4:23 PM EDT Received an Rx from [facility] with a new Rx for HRT per pt request. Spoke with Dr Whitt and she denied signing Rx and wanted to try sending in a different medication. Called pt back and advised her of Dr Whitt not signing Rx from [facility] and pt was upset. Advised pt global technical writer would ask Raven Hernández CNP if this is something she could sign since it does not have any Testosterone in the cream or capsules. Pt was agreeable. Call to [facility] due to Rx requiring JOANN #and if it could be signed without a JOANN number since Raven does not have one. instrument technician apprentice stated they already received script from another doctor that was signed. Call to pt was made and she stated her PCP signed the Rx and approved it for her. Pt was very agitated on the phone and stated she willnot be coming back to our office as she needs a doctor that will change her medications on a moments notice due to her having such high anxiety. [facility] Telephone encounter Note* Telephone Encounter - Eugenio Brown CMA - 01/13/2025 4:23 PM EDT Received an Rx from [facility] with a new Rx for HRT per pt request. Spoke with Dr Whitt and she denied signing Rx and wanted to try sending in a different medication. Called pt back and advised her of Dr Whitt not signing Rx from [facility] and pt was upset. Advised pt global technical writer would ask Raven Hernández CNP if this is something she could sign since it does not have any Testosterone in the cream or capsules. Pt was agreeable. Call to [facility] due to Rx requiring JOANN #and if it could be signed without a JOANN number since Raven does not have one. instrument technician apprentice stated they already received script from another doctor that was signed. Call to pt was made and she stated her PCP signed the Rx and approved it for her. Pt was very agitated on the phone and stated she willnot be coming back to our office as she needs a doctor that will change her medications on a moments notice due to her having such high anxiety. [facility]06-30-[facility] Evaluation note* Diagnosis Onset Date Resolution Status Admit Date Anxiety acute January 03 11:03am Arm paresthesia, left acute Dec 11:03am Fatigue acute January 03 11:03am Low serum estradiol acute January 03, 2025 11:03am Twitching acute January 03 11:03am Anxiety acute February 08 12:36pm Arm paresthesia, left acute Feb 12:36pm Cat scratch acute February 08, 2 025 12:36pm Twitching acute February 08 12:36pm Urinary frequency acute February 08, 2025 12:36pm [facility] Work Phone: [phone]) 979-676306-17-2025 History of Present illness Narrative* Katia Whitt MD - 12/21/2024 8:30 AM EDT Edna Sultana is a 59 y.o.female. No LMP recorded. Patient is postmenopausal.. She presents for medication follow up. She is currently on the 0.0375 mg/24hr estradiol patch, 200mg Prometrium, and estradiol cream. She notes a large difference on the HRT. She reports better sleep and less anxiety.She would like to discuss testosterone pellet therapy. [...] 07/03/2018 Performed by Osmany Dunn MD at [facility] 1988 TONSILLECTOMY TUBAL LIGATION FAMILY [...] estrogen patch to .05mg/24 hr to help withher other concerns. Informed the patient that testosterone pellet therapy is not covered by insurance. Patient would like to move forward with Testosterone pellet therapy. Lab work ordered, requisition provided. MD EUGENIO DOWD, LEE Edwards 12/21/24 0852 documented in this encounterMercy [facility]05-27-2025 Miscellaneous Notes* Telephone Encounter - Laurie Steward MA - 11/30/2024 10:22 AM EDT Pt would like to know if we can increase her estradiol patch dosages. Please advise, thank you! - Laurie Steward MA 11/30/24 10:25 AM * Telephone Encounter - Katia Whitt MD - 11/30/2024 10:22 AM EDT ADVISE TO GIVE SOME TIME HAS NOT EVEN BEEN 2 WKKS ON PRESENT DOSE BUT CAN KEEP SYMPTOM CALENDAR MOVE APPT UP TO 6WKS FU INSTEAD OF 2-3MOS * Telephone Encounter - Laurie Steward MA - 11/30/2024 10:22 AM EDT LMTCB - Laurie Steward MA 11/30/24 3:21 PM * Telephone Encounter - Laurie Steward MA - 11/30/2024 10:22 AM EDT Pt called back and was informed of info below. Pt voiced they understood. Pt scheduled 12/21/24. - Laurie Steward MA 11/30/24 3:28 PM documented in this encounterMer[facility]05-27-2025 Telephone encounter Note* Telephone Encounter - Laurie Steward MA - 11/30/2024 10:22 AM EDT Pt would like to know if we can increase her estradiol patch dosages. Please advise, thank you! - Laurie Steward MA 11/30/24 10:25 AM [facility]05-27-[facility] Telephone encounter Note* Telephone Encounter - Katia Whitt MD - 11/30/2024 10:22 AM EDT ADVISE TO GIVE SOME TIME HAS NOT EVEN BEEN 2 WKKS ON PRESENT DOSE BUT CAN KEEP SYMPTOM CALENDAR MOVE APPT UP TO 6WKS FU INSTEAD OF 2-3MOS [facility]-27-[facility] Telephone encounter Note* Telephone Encounter - Laurie Steward MA - 11/30/2024 10:22 AM EDT LMTCB - Laurie Steward MA 11/30/24 3:21 PM [facility]-27-[facility] Telephone encounter Note* Telephone Encounter - Laurie Steward MA - 11/30/2024 10:22 AM EDT Pt called back and was informed of info below. Pt voiced they understood. Pt scheduled 12/21/24. - Laurie Steward MA 11/30/24 3:28 PM [facility] Fairly [id number] History of Present illness Narrative* Katia Whitt MD - 11/09/2024 11:30 AM EDT Edna Sultana is a 59 y.o.female. No [...] 07/03/2018 Performed by Osmany Dunn MD at [facility] 1988 TONSILLECTOMY TUBAL LIGATION FAMILY [...] HRT COUNSELING GIVEN NA MS AND W HI AND RISKS BENEFITS ALTERNATIVES INDICATIONS DISCUSSED WITH [...] help her vasomotor symptoms, patient reports she hastried those medications before and does not want to go back on them. Discussed hormone labs are notneeded for testosterone pellet therapy as she is post menopausal. Estrogen patches and progesteronetablets for HRT were discussed, risks, benefits, indications, [...] thoroughly. Follow up in 2-3 months. MD EUGENIO DOWD, [facility] Jane Leis 11/09/24 1154 Jane Leis 11/09/24 1200 Jane Leis 11/09/24 1222 documented in this encounterMer[facility]04-22-2025 History of Present illness Narrative* Katia Whitt MD - 10/26/2024 3:00 PM EDT Patient reports she is unable to sleep at night and is having severe anxiety. She reports her bloodpressure and heart rate are increased. She would [...] discuss results of biopsy in 1-2 weeks. Jane Edwards 10/26/24 1523 Jane Edwards 10/26/24 1530 KATIA WHITT MD documented in this encounterMercy [facility]04-16-2025 Evaluation note* Author [facility] Authored October 20, 2024 1:2 9pm The above note written by __ _Prabhjot Tafoya____ acting as human recorder, note dictated by Dr. Layne .I performed the above HPI, ROS, and Examination. I formulated and dictated the treatment plan and was present for entire encounter. Yannick Velázquez D.O. [facility] Work Phone: [phone] Miscellaneous Notes* Telephone Encounter - Laurie Steward [...] MA 10/04/24 8:11 AM documented in this encounterMer[facility]03-28-2025 Telephone encounter Note* Telephone Encounter - Laurie Steward MA - 10/01/2024 8:38 AM EDT Pt called asking about HRT, would like more info on it. She has an appt for E[facility]- HYSTO on 10/26/24. Please advise, thank you! - Laurie Steward MA 10/01/24 8:39 AM [facility]03-28-[facility] Telephone encounter Note* Telephone Encounter - Katia Whitt MD - 10/01/2024 8:38 AM EDT PT SHOULD COMPLETE HER ABNORMAL BLEEDING WORKUP 1ST AND THEN WE WOULD DISCUSS HER HRT OPTIONS AFTERHER BLEEDING WORKUP IS COMPLETED AND WITH HER RESULTS DISCUSSION [facility] Work Phone: 1([phone]) 604-837703-28-2025 Telephone encounter Note* Telephone Encounter - Laurie Steward MA - 10/01/2024 8:38 AM EDT Called pt and was informed of info below. Pt confirmed she understood. - Laurie Steward MA 10/04/24 8:11 AM [facility] [id number] Evaluation note* Author [facility] Authored September 29, 2024 10: 02am The above note written by __ _Prabhjot Tafoya____ acting as human recorder, note dictated by Dr. Layne .I performed the above HPI, ROS, and Examination. I formulated and dictated the treatment plan and was present for entire encounter. Yannick Velázquez D.O. [facility] Work Phone: [phone]) 951-211602-25-2025 History of Present illness Narrative* Katia Whitt [...] 07/03/2018 Performed by Osmany Dunn MD at [facility] 1988 TONSILLECTOMY TUBAL LIGATION FAMILY [...] Emma Leis 08/31/24 1559 documented in this encounterMer[facility]29-[facility] History of Present illness Narrative* Reza Gorman [...] Procedure Laterality Date SECTION, CLASSIC [address] Dunn CYSTOSCOPY 02/17/2020 with urethral dilation, [...] change. Continue semiannual US.b documented in this encounterMiss[facility]-[id number] History of Present illness Narrative* Suzanna Gary, RT(R) - 06/10/2024 11:20 AM EST Radiology [...] PATIENT PRESENTS WITH AN IMPLANTABLE OR ATTACHED CONDUCTOR SLEEPING CAR: No ALLERGIES: Reviewed and unchanged CONTRAST ALLERGY: NO. EXAM: MRI - CONTRAST TYPE: GROUP II PERIPHERAL IV DATA: Ambulatory: A peripheral IV was started in the Right antecubital site with a Angio cath: 24 gauge. RADIOLOGY DEPARTMENT: MR; Exam(s) Completed: Head: Routine Brain SIGNATURE: RT Galdino(Loli) PATIENT NAME: Edna Sultana DATE: June 10, 2024 TIME: 10:13 AM documented in this encounterAultman Orrville [facility]12-05-2024 NoteHNO ID: [id number] Author: SUZANNA GARY RT (R) Service: ? Author Type: Technologist Type: Progress Notes Filed: 06/10/2024 10:32 Note Text: Radiology Service Progress Note DATE [...] PATIENT PRESENTS WITH AN IMPLANTABLE OR ATTACHED CONDUCTOR SLEEPING CAR: No ALLERGIES: Reviewed and unchanged CONTRAST ALLERGY: NO. EXAM: MRI - CONTRAST TYPE: GROUP II PERIPHERAL IV DATA: Ambulatory: A peripheral IV was started in the Right antecubital site with a Angio cath: 24 gauge. RADIOLOGY DEPARTMENT: MR; Exam(s) Completed: Head: Routine Brain SIGNATURE: RT Galdino(R) PATIENT NAME: Edna Sultana DATE: June 10, 2024 TIME: 10:13 [facility]11-26-2024 History of Present illness Narrative* Katia Whitt MD - 06/01/2024 9:00 AM EST Edna Sultana is a 58 y.o.female. No LMP recorded. Patient is postmenopausal.. She presents for evaluation of vaginal lesion. REFERRED TO THE PHYSICIAN SCHEDULE FROM MACHINE SILK SCREEN PRINTER SCHEDULE PATIENT PREFERS REMOVAL OF LESION. SHE [...] 07/03/2018 Performed by Osmany Dunn MD at [facility] COLPOSCOPY 1988 TONSILLECTOMY TUBAL LIGATION FAMILY [...] LEE Barnes 06/01/24 0939 documented in this encounterMer[facility]11-25-2024 History of Present illness Narrative* Ivy Garcia, [...] . . [facility] labs for RLS and fasciculations [...] to clinic: 2-3 months documented in this encounterMissouri Baptist Hospital-[id number] History of Present illness Narrative* Raven Hernández APRN-MARGY - 05/18/2024 3:15 PM EST Edna Sultana is a pleasant 58 y.o. 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 She is postmenopausal. Hysterectomy: no Patient reports hx a lesion in her vagina that is increasing in size. She has hx genital / rectal wart removal in the past. She states the lesion is not painful but has gotten bigger in the past 6 months. She is sexually active. Denies painful intercourse or pelvic pain. 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 All questions answered. RTO for annual electrical hardware engineer exam and / or PRN. RTO with physician to evaluate vaginal lesions. PIPPA Witt APRN-CNP 05/18/24 1633 documented in this encounterMercy Health Willard Hospital10-15-2024 NoteGeneral Surgery Office/Clinic Note Chief Complaint consultation for lipoma HPI Staff 58 year old female presents on consultation from Dr. Velázquez for lipoma of left abdomen. Reports noting mass near the underside of left rib cage approximately 1 year ago. Denies change in size since first noted. Denies soreness or tenderness. Abdominal US completed 12/2022 at [facility]. History of Present Illness 58 yo female referred for possible lipoma left abdominal wall; abdominal operations significant forc-section and tubal ligation; patient noticed slight lump in area when lying flat; US at [facility] over 1 year ago with fatty tissue [...] Heart disease: Brother. Hypertension: Mother. Multiple myeloma: Father.[facility] Willard HospitalComment on above:Result Comment: Electronically Signed By: JAMIN LAZO, Florentin Lozada\Date and Time Signed: 04/20/24 15:21 [id number] History of Present illness Narrative* Suzanne Gee, - 04/15/2024 11:00 AM EDT Images from the original note were not included. Chief Complaint Patient presents with Sleeping Problem Subjective Edna Sultana, 58 y.o., female HPI The patient states that she had a sleep study at [facility] 27 years ago. She was very tired [...] to clinic: 2 months documented in this encounterMissouri Baptist Hospital-SullivanOgezibsnso44-73-2269 Hospital Discharge instructionsAmbulatory Orders* Referral to General Surgery Time Frame: 03/24/24, Location: [facility] Work Phone: 1(525) 925-871809-17-2024 NoteHNO ID: [id number] Author: JANNA GILMAN MD Service: ? Author [...] which included preparing to see the patient, [id number] patient care, completing clinical documentation, obtaining and/or reviewing separately obtained history, performing a medically appropriate examination, counseling and educating the patient/family/caregiver, and ordering medications, tests, or procedures. Janna Gilman MD cc: Abiodun Castano [id number] [facility] [address] Edna Rodriguezht [id number] [address] [facility] [address]JcozijociSelect [facility]09-17-[facility]24 History of Present illness Narrative* Janna Gilman [...] which included preparing to see the patient, [id number] patient care, completing clinical documentation, obtaining and/or reviewing separately obtained history, performing a medically appropriate examination, counseling and educating the pat ient/family/caregiver, and ordering medications, tests, or procedures. Janna Gilman MD cc: Abiodun Castano [id number] [facility] [address] Edna Sultana [phone] [address] [facility] [address] documented in this encounterAultman Orrville Hospital06-07-2024 History of Present illness Narrative* Abiodun Castano, DO - 12/12/2023 12:16 PM EDT Follow-up Visit [...] sense that escaped review. documented in this encounterAultman Orrville Hospital06-04-2024 History of Present illness Narrative* Suzanna Gary RT(R) - 12/09/2023 9:20 AM EDT Radiology [...] PATIENT PRESENTS WITH AN IMPLANTABLE OR ATTACHED CONDUCTOR SLEEPING CAR: No ALLERGIES: Reviewed and unchanged CONTRAST ALLERGY: [...] 2023 TIME: 10:26 AM documented in this encounterAultman Orrville Hospital05-06-2024 Evaluation note* Author [facility] Authored November 10, 2023 11:44a m The above note written by __ _Prabhjot Tafoya____ acting as human recorder, note dictated by Dr. Layne .I performed the above HPI, ROS, and Examination. I formulated and dictated the treatment plan and was present for entire encounter. Yannick Velázquez D.O. [facility] Work Phone: 1(243) 935-904605-02-2024 Telephone encounter Note* Telephone Encounter - Jules House MA - 11/06/2023 9:08 AM EDT Scheduled 3 mri's and follow up appointment as requested by Dr. Castano. [facility]05-02-2024 Miscellaneous Notes* Telephone Encounter - Jules House MA - 11/06/2023 9:08 AM EDT Scheduled 3 mri's and follow up appointment as requested by Dr. Castano. * Telephone Encounter - Jules House MA - 11/06/2023 7:26 AM EDT end documented in this encounterAultman Orrville Hospital05-02-2024 Telephone encounter Note * Telephone Encounter - Jules House MA - 11/06/2023 7:26 AM EDT end [facility]05-01-2024 Telephone encounter Note* Telephone Encounter - Abiodun [...] best recommendation. I willsend the patient a Dataloop[employer]IOhart message also so she is aware. Devin please cancel her other MRIs and I have placed new orders. Abiodun Castano DO [facility] Work Phone: [phone]) 304-369205-01-2024 Miscellaneous Notes* Telephone Encounter - Abiodun Castano [...] best recommendation. I willsend the patient a Xeround message also so she is aware. Devin please cancel her other MRIs and I have placed new orders. Abiodun Castano DO documented in this encounterAultman Orrville Hospital04-23-2024 Telephone encounter Note * Telephone Encounter - Jules House MA - 10/28/2023 9:19 AM EDT Left message for patient to return call to schedule mri's and a follow up appointment. [facility]04-23-2024 Miscellaneous Notes* Telephone Encounter - Jules House MA - 10/28/2023 9:19 AM EDT Left message for patient to return call to schedule mri's and a follow up appointment. documented in this encounterAultman Orrville Hospital04-18-2024 Miscellaneous Notes* Telephone Encounter - Frannie Hernandez RN - 10/23/2023 11:20 AM EDT KAYLEEN 10/21/23- unsigned note Additional info patient wanted to share documented in this encounterAultman Orrville Hospital04-16-2024 Instructions* Patient Instructions* Abiodun Castano Shani, - 10/21/2023 8:41 AM EDT Images from [...] 2023 TIME: 8:41 AM documented in this encounterAultman Orrville Hospital04-16-2024 History of Present illness Narrative* Abiodun Castano DO - 10/21/2023 8:39 AM EDT Images [...] year. 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 and has been undergoing extensive workup [...] 2023 TIME: 8:41 AM documented in this encounterAultman Orrville Hospital03-26-2024 History of Present illness Narrative* Ledy Emanuel, [facility] - 09/30/2023 10:15 AM EDT Edna Sultana [...] 07/03/2018 Performed by Osmany Dunn MD at [facility] TONSILLECTOMY TUBAL LIGATION FAMILY HX Family [...] MILNER APRN-CNM 09/30/23 1234 documented in this encounterMercy Health Willard Hospital03-13-2024 Evaluation note* Author [facility] Authored September 17, 2023 4:4 1pm The above note written by __ _Prabhjot Tafoya____ acting as human recorder, note dictated by Dr. Layne .I performed the above HPI, ROS, and Examination. I formulated and dictated the treatment plan and was present for entire encounter. Yannick Velázquez D.O. [facility] Work Phone: [phone]) 744-216012-12-2023 Evaluation note* Encounter Date Diagnosis Assessment Notes [...] 5 MG tablets at a pharmacy in [place] to help her wean off the medication. [...] She voices that she is seeing a cleaning team member on 06-19-23 and has an MRI of the right foot. She thinks she may have a neuroma of the right foot because she has a ball on the bottom of her right foot. Jun, Other 10:05 AM - 10:1 7 AM [email or web address] Other 11-21-2023 Note Yannick Velázquez DO [address], [place] [address] Re: Edna Rodriguezht Date of Visit: 05/27/2023 Dear Yannick Velázquez DO, Let me know if you have any questions or concerns. Sincerely, MARTIN Moreno MD Providers: The following document(s) were included in the letter: May 27, 2023 11:20:24 EST - (05/27/2023) Neurosurgery Office Visit Note [facility]11-16-2023 Evaluation note* Encounter Date Diagnosis Assessment Notes Treatment Notes Treatment Clinical Notes May, Anxiety (ICD-10 - F41.9) When she gets home from work she is restless, does not know what to do with herself. She does not want to cook fish and chips. She did increase her Zoloft to 1 [...] any issue with her parathyroid. May, Other termination clerk (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 therapy (ICD-10 - Z79.899) May, Weight gain (ICD-10 - R63.5) She has gained six pounds since March (2022). May, Other She has an appointment with Avery her homeopathic doctor who always tells her that her Cortisol level is a mess . [email or web address] Other 10-24-2023 Evaluation note* Encounter Date Diagnosis Assessment Notes Treatment Notes Treatment Clinical Notes Apr, Anxiety (ICD-10 - F41.9) [email or web address] Other 2023 Evaluation note* Encounter Date Diagnosis Assessment Notes Treatment Notes Treatment Clinical Notes Apr, Other termination clerk (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 therapy (ICD-10 - Z79.899) Apr, Vitamin B12 deficiency (ICD-10 - E53.8) Apr, Muscle cramp (ICD-10 - R25.2) Apr, Paresthesia (ICD-10 - R20.2) Apr, Vitamin D deficiency (ICD-10 - E55.9) Apr, Fatigue (ICD-10 - R53.83) [email or web address] Other 2023 Evaluation note* Encounter Date Diagnosis Assessment Notes Treatment Notes Treatment Clinical Notes Apr, Vitamin B12 deficiency (ICD-10 - E53.8) Apr, Hypokalemia (ICD-10 - E87.6) [email or web address] Other 09-27-2023 Evaluation note* Encounter Date Diagnosis Assessment Notes Treatment Notes Treatment Clinical Notes Mar, Anxiety (ICD-10 - F41.9) [email or web address] Other 09-13-2023 Evaluation note* Encounter Date Diagnosis Assessment Notes Treatment Notes Treatment Clinical Notes Mar, Lumbar pain (ICD-10 - M54.50) [email or web address] Other 09-13-2023 Evaluation note* Encounter Date Diagnosis [...] not want to use an inversion table. [email or web address] Other 08-09-2023 Evaluation note* Encounter Date Diagnosis Assessment Notes Treatment Notes Treatment Clinical Notes Feb, Lumbar pain (ICD-10 - M54.50) [email or web address] Other 08-02-2023 Evaluation note* Encounter Date Diagnosis Assessment Notes Treatment Notes Treatment Clinical Notes Feb, Lumbar pain (ICD-10 - M54.50) [email or web address] Other 07-18-2023 Evaluation note* Encounter Date Diagnosis [...] understanding and is agreeable to treatment plan. [email or web address] Other 07-05-2023 Evaluation note* Encounter Date Diagnosis Assessment Notes Treatment Notes Treatment Clinical Notes Jan, Thyroid nodule (ICD-10 - E04.1) [email or web address] Other 06-30-2023 Evaluation note* Encounter Date Diagnosis Assessment Notes Treatment Notes Treatment Clinical Notes Dec, Thyroid nodule (ICD-10 - E04.1) [email or web address] Other 06-16-2023 Evaluation note* Encounter Date Diagnosis [...] done when it comes to her town. [email or web address] Other 03-13-2023 Evaluation note* Encounter Date Diagnosis Assessment Notes Treatment Notes Treatment Clinical Notes Sep, Anxiety (ICD-10 - F41.9) [employer] Other 03-13-2023 Evaluation note* Encounter Date Diagnosis [...] continue with it today. She saw a uro/crushing foreman who referred her to physical therapy for pelvic floor therapy. They are going to see if Dr. Martinez feels her issue may be coming from her back. [email or web address] Other 02-23-2023 Evaluation note* Encounter Date Diagnosis Assessment Notes Treatment Notes Treatment Clinical Notes Aug, Lumbar degenerative disc disease (ICD-10 - M51.36) [email or web address] Other 02-01-2023 Evaluation note* Encounter Date Diagnosis Assessment Notes Treatment Notes Treatment Clinical Notes Aug, Spinal stenosis (ICD-10 - M48.00) Aug, DDD (degenerative disc disease), lumbar (ICD-10 - M51.36) Aug, Lumbar pain (ICD-10 - M54.50) [email or web address] Other 01-13-2023 Evaluation note* Encounter Date Diagnosis [...] symptoms. She did see a surgeon in [place] and he told her that she was [...] noticed it turn flaky. She asked her corncob pipe supervisor who told her she didn't know what [...] (ICD-10 - Z80.41) She will see her crushing foreman next week to discuss a hysterectomy. She would like to have a CA-125 test done. Her grandmother had ovarian cancer. She voices that she would request a total hysterectomy if she is going to have a hysterectomy. Jul, Other usp (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 therapy (ICD-10 - Z79.899) Jul, Other Sometimes if sh e is running and stops she will get pain in both her adrenal glands that is so painful it will cause her to double over in pain. This has only happened a few times. She does feel this when she bends backwards on exam today. [email or web address] Other 12-28-2022 Evaluation note* Encounter Date Diagnosis Assessment Notes Treatment Notes Treatment Clinical Notes Jun, Lumbar pain (ICD-10 - M54.50) Jun, Lumbar degenerative disc disease (ICD-10 - M51.36) She is not having any radicular symptoms and no urinary tract symptoms. She feels that this is may be related to constipation and would like an order sent to [facility] for an x-ray to see how much stool is present. She is going to see Marty Pugh her physical therapist in [place] next week and hopefully this will help. She has responded well in the past to Medrol Dosepak and would like to have this available to take if desired. side effects/risks/benef its of medication reviewed. Jun, Constipation (ICD-10 - K59.00) Jun, Other 09:15 AM - 09:22 AM [email or web address] Other 12-19-2022 Evaluation note* Encounter Date Diagnosis [...] the medication. 2:50 PM - 2:58 PM [email or web address] Other 11-03-2022 Evaluation note* Encounter Date Diagnosis Assessment Notes Treatment Notes Treatment Clinical Notes May, Cystitis (ICD-10 - N30.90) [email or web address] Other 10-05-2022 Evaluation note* Encounter Date Diagnosis [...] likely fighting something viral a month ago. [email or web address] Other 09-20-2022 Evaluation note* Encounter Date Diagnosis [...] will return to see the neurosurgeon in [place] for her back. Mar, Other She voices that she had lab drawn through her employer to include cholesterol, she will provide the office with a copy of her results. 8:26 AM - 8:40 AM [email or web address] Other 08-12-2022 Evaluation note* Encounter Date Diagnosis Assessment Notes Treatment Notes Treatment Clinical Notes Feb, Anxiety (ICD-10 - F41.9) [email or web address] Other 07-25-2022 Evaluation note* Encounter Date Diagnosis [...] we will help you get into specialist. [email or web address] Other 07-08-2022 NotePROCEDURE: XR KNEE LT 4V [...] Electronically authenticated by: JENNIFER NICOLAS Date: 2022-01-11 12:09[facility]07[facility] Evaluation note* Encounter Date Diagnosis Assessment Notes Treatment Notes Treatment Clinical Notes Jan, Knee pain, left (ICD-10 - M25.562) [email or web address] Other 07-06-2022 Evaluation note* Encounter Date Diagnosis [...] and is not winded when she runs. [email or web address] Other 06-07-2022 Evaluation note* Encounter Date Diagnosis Assessment Notes Treatment Notes Treatment Clinical Notes Dec, Anxiety (ICD-10 - F41.9) [email or web address] Other 06-07-2022 Evaluation note* Encounter Date Diagnosis [...] ts of medication were reviewed. Dec, Other termination clerk (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 therapy (ICD-10 - Z79.899) I [...] copy of this once it is done. [email or web address] Other 03-07-2022 Evaluation note* Encounter Date Diagnosis [...] She is considering seeing a pharmacist from [facility] to discuss a different version of Cyanocobalamin that does not contain cyanide, I did advise her that if she does this they can send us a prescription request to sign. Sep, Other She voices that her hair is falling out from having had COVID-19 but it seems to be slowing down. [email or web address] Other 12-06-2021 Evaluation note* Encounter Date Diagnosis [...] drinking alot of water and began drinking [place] artichoke and feels her symptoms resolved. She [...] to continue with what she is doing. [email or web address] Other Evaluation + Plan note No data available for this section [facility] General Surgery [place] Evaluation noteNo InformationN[facility] [employer] Other Evaluation noteNo assessment information available [facility] Work Phone: Evaluation note* Diagnosis Lumbar radiculopathy- [...] nervous system, unspecified documented in this encounter [facility]* Diagnosis Fasciculation- Primary Abnormal involuntary movements Hyperreflexia Abnormal reflex Degeneration of lumbar or lumbosacral intervertebral disc documented in this encounter [facility]* Diagnosis Hyperreflexia Abnormal reflex Syringomyelia and syringobulbia (HCC) Syringomyelia and syringobulbia documented in this encounter [facility]* Diagnosis Hyperreflexia Abnormal reflex Demyelinating disease of central nervous system (HCC) Demyelinating disease of central nervous system, unspecified documented in this encounter [facility] HospitalEvalub[facility]* Diagnosis Hyperreflexia Abnormal reflex Spinal stenosis of cervical region Spinal stenosis in cervical region Demyelinating disease of central nervous system (HCC) Demyelinating disease of central nervous system, unspecified documented in this encounter [facility]* Diagnosis Disturbance of skin sensation- Primary Fasciculation Abnormal involuntary movements Hyperreflexia Abnormal reflex documented in this encounter [facility]Eval[facility]* Diagnosis Onset Date Resolution Status Abnormal finding on MRI of brain acute Anxiety acute Lipoma acute Twitching acute Vitamin B12 deficiency acute [facility] Work Phone: Evaluation note* Diagnosis AB (obstructive sleep apnea)- Primary Obstructive sleep apnea (adult) (pediatric) Hypersomnia Hypersomnia, unspecified Sleep disturbance Unspecified sleep disturbance Catathrenia Sleep talking Other dysfunctions of sleep stages or arousal from sleep documented [facility] this encounter [facility]* Diagnosis Brain cyst- Primary Cerebral cysts documented in this encounter [facility]* Diagnosis Restless legs- Primary Restless legs syndrome (RLS) Benign fasciculation-cramp syndrome Unspecified myoneural disorders Hypersomnia Hypersomnia, unspecified PLMD (periodic limb movement disorder) Periodic limb movement disorder Chronic low back pain, unspecified back pain laterality, unspecified whether sciatica present Sleep disturbance Unspecified sleep disturbance documented in this encounter [facility]* Diagnosis Brain cyst Cerebral cysts documented in this encounter [facility]* Diagnosis Nontoxic multinodular goiter (CMS/HCC)- Primary Nontoxic multinodular goiter documented [facility] this encounter [facility]* Diagnosis Heterogeneously dense tissue of both breasts on mammography- Primary [facility]* Diagnosis PMB (postmenopausal bleeding)- Primary Postmenopausal bleeding Vaginal atrophy Postmenopausal atrophic vaginitis documented in this encounter [facility]* Diagnosis Well woman exam with routine gynecological exam- Primary Routine gynecological examination Urinary urgency Urgency of urination Screening for osteoporosis Special screening for osteoporosis Postmenopausal Asymptomatic postmenopausal status (age-related) (natural) Hx of osteopenia Vaginal atrophy Postmenopausal atrophic vaginitis documented in this encounter [facility]* Diagnosis Vaginal lesion- Primary Other specified noninflammatory disorder of vagina documented in this encounter [facility]* Diagnosis Vaginal lesion- Primary Other specified noninflammatory disorder of vagina Thickened endometrium Nonspecific (abnormal) findings on radiological and other examination of genitourinary organs documented in this encounter [facility]* Diagnosis Onset Date Resolution Status Admit Date Abnormal finding on MRI of brain acu te September 29, 2024 8:59am Anxiety acute September 29 8:59am Degenerative disc disease, lumbar acute September 29, 2024 8:59am History of cystitis acute September 29, 2024 8:59am Magnesium deficiency acute [facility] 2024 8:59am Periodic limb movement disorder acut e September 29, 2024 8:59am Pruritus acute September 29 8:59am Rhinorrhea acute September 29 8:59am Twitching acute September 29 8:59am Vitamin B12 deficiency acute [facility] 2024 8:59am Vitamin D deficiency acute [facility] h 2024 8:59am [facility] Work Phone: Evaluation note* Diagnosis Postmenopausal- Primary Asymptomatic postmenopausal status (age-related) (natural) DUB (dysfunctional uterine bleeding) [N93.8] Other disorder of menstruation and other abnormal bleeding from female genital tract Thickened endometrium Nonspecific (abnormal) findings on radiological and other examination of genitourinary organs documented in this [facility] Diagnosis Thickened endometrium- Primary Nonspecific (abnormal) findings on radiological and other examination of genitourinary organs Menopausal symptom Vaginal atrophy Postmenopausal atrophic vaginitis documented in this encounter [facility]* Diagnosis Encounter for screening for cardiovascular disorders documented in this encounter [facility] Work Phone: Evaluation note* Diagnosis Menopausal symptom- Primary documented in this encounter [facility]* Diagnosis Thyroid nodule- Primary Nontoxic uninodular goiter documented in this encounter [facility] HealthcareEvaluation note* Diagnosis Vitreous floaters of left eye- Primary documented in this encounter [facility] general Narrative - Reported* Type Description Date [...] Cystoscopy and urethral dilatio devaughn Zepeda 02-17-2020 Hospitalization History childbirth 2003 200 6 Hospitalization History see above [email or web address] Other [facility] general Narrative - Reported* Type Description Date [...] 2003 200 6 Hospitalization History see above [email or web address] Other History general Narrative - Reported* Type [...] enosis and Herniated Disc L4-L5 ; Dr. aCzares Medical History anemia Medical History anxiety Surgical History 2006 Surgical History bilateral tailor bunionectiomy Surgical History Tonsicllectomy Surgical History tubaligation Surgical History laparascopy to check for adhesi ons from Surgical History Cystoscopy and urethral dilatio n - Dr. Zepeda 02-17-2020 Surgical History Colonoscopy, Dr. Dunn, needs repeat in 2027 2017 Hospitalization History childbirth 2003 200 6 Hospitalization History see above [email or web address] Other [employer] general Narrative - Reported* Type Description Date [...] 2003 200 6 Hospitalization History see above [email or web address] Other Hospital Discharge instructions No data available for this section [facility] General Surgery Alonso InstructionsNot on filedocumented in this encounter [facility] SystemInst[facility]* Attachments The following attachments cannot be sent through Care Everywhere. * Calcium and vitamin D for bone health (Maori) documented in this [facility] SystemInstructionsNot on file documented in this encounterProUnited [facility] Health SystemInstructionsNot on file documented in this encounterProMediky Health SystemInstructionsNot on file documented in this encounterProMediky Health SystemInstructionsNot on file documented in this encounterProMediky Health SystemInstructionsNot on file documented in this encounterProUnited [facility] Health SystemInstructionsNot on file documented in this encounterProUnited [facility] Fair[facility] SystemInstructionsNot on file documented in this encounterProUnited States [facility] Health SystemProgress note No data available for this section [facility] [place] Reason for referral (narrative)* Diagnostic Procedure Only (Routine) - Closed Specialty Diagnoses / Procedures Referred By Ryan alejandro Referred To Contact MR IMAGING Diagnoses Hyperreflexia Syringomyelia and syringobulbia (HCC) Procedures MRI BRAIN WO/W IVCON MRI BRAIN BRAIN STEM W/O W/[place] [address] [place] [address] [place] [address] Referral ID Status Reason Start Date Expiration Date V isits Requested Visits Authorized [id number] Closed Auto-Generate d Referral 11/06/2023 07/06/[address] [facility] for referral (narrative)* Diagnostic Procedure Only (Routine) - Closed Specialty Diagnoses / Procedures Referred By Ryan alejandro Referred To Contact MR IMAGING Diagnoses Hyperreflexia Demyelinating disease of central nervous system (HCC) Procedures MRI THORACIC SPINE WO/W IVCON MRI SPINAL CANAL THORACIC W/O & W/[place] [address] [place] [address] [place] [address] Referral ID Status Reason Start Date Expiration Date V isits Requested Visits Authorized [id number] Closed Auto-Generate d Referral 11/06/2023 07/06/[address] [facility] for referral (narrative)* Diagnostic Procedure Only (Routine) - Closed Specialty Diagnoses / Procedures Referred By Contac t Referred To Contact MR IMAGING Diagnoses Hyperreflexia Spinal stenosis of cervical region Demyelinating disease of central nervous system (HCC) Procedures MRI CERVICAL SPINE WO/W IVCON MRI SPINAL CANAL CERVICAL W/O & [place] [address] [place] [address] Mr Imaging [place] [address] Referral ID Status Reason Start Date Expiration Date V isits Requested Visits Authorized [id number] Closed Auto-Generate d Referral 11/06/2023 07/06/[address] [facility] for referral (narrative)No reason for referral information availableOhiohealth [facility] Work Phone: Reason for visit Narrativecontinued back pain, discuss multiple issues, see treatment planNort [employer] Other Reason for visit Narrative* Diagnostic Procedure Only (Routine) - Closed Specialty Diagnoses / Procedures Referred By Contac t Referred To Contact MR IMAGING Diagnoses Hyperreflexia Demyelinating disease of central nervous system (HCC) Procedures MRI THORACIC SPINE WO/W IVCON MRI SPINAL CANAL THORACIC W/O & W/[place] [address] [place] [address] Mr Imaging [place] [address] Referral ID Status Reason Start Date Expiration Date V isits Requested Visits Authorized [id number] Closed Auto-Generate d Referral 11/06/2023 07/06/[address] [facility] for visit Narrative* Diagnostic Procedure Only (Routine) - Closed Specialty Diagnoses / Procedures Referred By Contac t Referred To Contact MR IMAGING Diagnoses Hyperreflexia Spinal stenosis of cervical region Demyelinating disease of central nervous system (HCC) Procedures MRI CERVICAL SPINE WO/W IVCON MRI SPINAL CANAL CERVICAL W/O & [place] [address] [place] [id number] [place] [address] Referral ID Status Reason Start Date Expiration Date V isits Requested Visits Authorized [id number] Closed Auto-Generate d Referral 11/06/2023 07/06/[address] [facility] for visit Narrative* Imaging (Routine) - Pending Review Specialty Diagnoses / Procedures Referred By Contac t Referred To Contact Radiology Diagnoses Encounter for screening for cardiovascular disorders Procedures CT cardiac scoring wo IV contrast Yannick Velázquez, DO [address] [place] [address] Phone: tel: fax: Referral ID Status Reason Start Date Expiration Date Visits Requested Visits Authorized [id number] Pending Review Perform Procedure 10/20/2024 10/20/[address] 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 REFERRING M.D.: Yannick Velázquez, DO [address] [place] [address] Consultation requested by Gisel for an opinion [...] bulge. no blood in urine QUESTIONNAIRE: Questionnaire: [facility] Female Pelvic Medicine Base Question Answer [...] 3am Twitching January 03, 2025 11:0 3am Chief Complaint Admit Date med refill January 03, 2025 11:0 3am discuss labs from Specialist February 08, 2025 12:36pm Reason for Visit Admit Date Anxiety January 03, 2025 11:0 3am Arm paresthesia, left January 03, 2025 11 :03am Fatigue January 03, 2025 11:0 3am Low serum estradiol January 03, 2025 11:0 3am Twitching January 03, 2025 11:0 3am Anxiety February 08, 2025 12: 36pm Arm paresthesia, left February 08, 2025 1 2:36pm Cat scratch February 08, 2025 12: 36pm Twitching February 08, 2025 12: 36pm Urinary frequency February 08, 2025 12: 36pm Chief Complaint Admit Date med refill January 03, 2025 11:0 3am discuss labs from Specialist February 08, 2025 12:36pm discuss back pain/ review lab March 22, 2025 2:50pm Reason for Visit Admit Date Anxiety January 03, 2025 11:0 3am Arm paresthesia, left January 03, 2025 11 :03am Fatigue January 03, 2025 11:0 3am Low serum estradiol January 03, 2025 11:0 3am Twitching January 03, 2025 11:0 3am Anxiety February 08, 2025 12: 36pm Arm paresthesia, left February 08, 2025 1 2:36pm Cat scratch February 08, 2025 12: 36pm Twitching February 08, 2025 12: 36pm Urinary frequency February 08, 2025 12: 36pm Abdominal pain March 22, 2025 2:50pm Anxiety March 22, 2025 2:50pm Burping March 22, 2025 2:50pm Fatigue March 22, 2025 2:50pm Left shoulder pain March 22, 2025 2:50pm Pectus excavatum March 22, 2025 2:50pm Thoracic back pain March 22, 2025 2:50pm Reason for Referral Specialty Diagnoses / Procedures Referred By Ryan alejandro Referred To Contact Radiology Diagnoses Heterogeneously dense tissue of both breasts on mammography Procedures NM Molecular breast imaging localization limited area Raven Smith, CELL [employer]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 [address] [place] [address] Referral ID Status Reason Start Date Expiration Date V isits Requested Visits Authorized [id number] Pending Review 01/07/2024 01/06/2025 5 5 Specialty Diagnoses / Procedures Referred By Contac t Referred To Contact MR IMAGING Diagnoses Brain cyst Procedures MRI BRAIN WO/W IVCON MRI BRAIN BRAIN STEM W/O W/CONTRAST MATERIAL Janna Gilman MD [address] [place] [id number] Mr Imaging [facility] Referral ID Status Reason Start Date Expiration Date Visits Requested Visits Authorized [id number] New Request Auto-Generat ed Referral 06/05/2025 1 1 Specialty Diagnoses / Procedures Referred By Contac t Referred To Contact Diagnoses Hypersomnia Sleep disturbance Catathrenia Sleep talking Procedures Multiple sleep latency test Suzanne Gee DO [address] [place] [address] Referral ID Status Reason Start Date Expiration Date V isits Requested Visits Authorized [id number] Pending Review 04/15/2024 10/12/2024 1 1 Specialty Diagnoses / Procedures Referred By Contac t Referred To Contact Diagnoses AB (obstructive sleep apnea) Procedures Polysomnography Suzanne Gee DO [address] [place] [address] Referral ID Status Reason Start Date Expiration Date V isits Requested Visits Authorized [id number] Pending Review 04/15/2024 10/12/2024 1 1 Specialty Diagnoses / Procedures Referred By Contac t Referred To Contact Neurology Diagnoses Fasciculation Hyperreflexia Procedures CONSULT TO NEUROLOGY OFFICE/OUTPATIENT NEW HIGH MDM [address] [place] [address] [place] [address] Referral ID Status Reason Start Date Expiration Date Visits Requested Visits Authorized [id number] Authorized PCP Requested Referral 12/12/2023 12/11/2024 1 1 Specialty Diagnoses / Procedures Referred By Contac t Referred To Contact MR IMAGING Diagnoses Hyperreflexia Demyelinating disease of central nervous system (HCC) Procedures MRI BRAIN WO IVCON MRI BRAIN BRAIN STEM W/[place] [address] [place] [id number] [place] [address] Referral ID Status Reason Start Date Expiration Date Visits Requested Visits Authorized [id number] Pending Review Auto-Generat ed Referral 10/27/2023 11/25/2024 1 1 Specialty Diagnoses / Procedures Referred By Contac t Referred To Contact MR IMAGING Diagnoses 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) Demyelinating disease of central nervous system (HCC) Procedures MRI THORACIC SPINE WO IVCON MRI SPINAL CANAL THORACIC [place] [address] [place] [address] [place] [address] Referral ID Status Reason Start Date Expiration Date Visits Requested Visits Authorized [id number] Pending Review Auto-Generat ed Referral 10/27/2023 11/25/2024 1 1 Specialty Diagnoses / Procedures Referred By Contac t Referred To Contact MR IMAGING Diagnoses Hyperreflexia Neuromuscular scoliosis of thoracic region Chiari I malformation (HCC) Spinal stenosis of cervical region Syringomyelia and syringobulbia (HCC) Demyelinating disease of central nervous system (HCC) Procedures MRI CERVICAL SPINE WO IVCON MRI SPINAL CANAL CERVICAL W/O CONTRAST Abiodun Bone, [address] [place] [address] [place] [address] Referral ID Status Reason Start Date Expiration Date Visits Requested Visits Authorized [id number] Pending Review Auto-Generat ed Referral 10/27/2023 11/25/2024 1 1 Reason appt pt needs cons ult to discuss twitching, numbness right foot, neuropathy Diagnosis 1 Twitching (R25.3) Referral Organization [facility] Family Andreas Gupta Referring Provider First Name Yannick Referring Provider Last Name Gisel Referring Provider Specialty Family Prac loretta Referred Organization [facility] Referred Provider Nathen Hoover Referred Address [address] [place], [place],[address] Referred Provider Specialty Neurology Referral Priority Routine [...] 1 Thyroid nodule (E04. 1) Referral Organization [facility] Medic[facility]to Gupta Referring Provider First Name Yannick Referring Provider Last Name Gisel Referring Provider Specialty Family Prac loretta Referred Organization [facility] Referred Provider Reza Gorman Referred Address ,[place], [place],[address] Referred Provider Specialty Ear, Nose an d [...] Lumbar degenerative disc disease (M51.36) Referral Organization [facility] Andreas Gupta Referring Provider First Name Yannick Referring Provider Last Name Gisel Referring Provider Specialty [facility] Bianka burgos Referred Organization [facility] urosurgery Referred Provider Victorina Martinez Referred Address [address] [facility] [address] ,[place], [place],[address] Referred Provider Specialty Neurological Surgery Referral Priority Routine Referral Appointment Date 2022-09-18 General Notes Victorina Cassidy 08/29/2022 01:50:55 PM > referral sent p2p. pt understands she will be contacted to schedule this appt. Victorina Cassidy 08/30/2022 10:55:52 AM > appt scheduled on 09/18/22 at 8:20am Additional Source Comments INFORMATION SOURCE (unrecogn ized section and content) DATE CREATED AUTHOR 11/17/2019 [facility] DATE CREATED AUTHOR AUTHOR'S ORGANIZ ATION 07/06/2022 [facility] DATE CREATED AUTHOR AUTHOR'S ORGANIZ ATION 05/29/2023 [facility] DATE CREATED AUTHOR AUTHOR'S ORGANIZ ATION 10/01/2023 [facility] DATE CREATED AUTHOR AUTHOR'S ORGANIZ ATION 04/22/2024 [facility] DATE CREATED AUTHOR AUTHOR'S ORGANIZ ATION 06/27/2024 [facility] DATE CREATED AUTHOR AUTHOR'S ORGANIZ ATION 07/02/2024 [facility] DATE CREATED AUTHOR AUTHOR'S ORGANIZ ATION 10/27/2024 [facility] DATE CREATED AUTHOR AUTHOR'S ORGANIZ ATION 11/08/2024 [facility] DATE CREATED AUTHOR AUTHOR'S ORGANIZ ATION 12/07/2024 [facility] DATE CREATED AUTHOR AUTHOR'S ORGANIZ ATION 12/23/2024 [facility] DATE CREATED AUTHOR AUTHOR'S ORGANIZ ATION 01/27/2025 [facility] DATE CREATED AUTHOR AUTHOR'S ORGANIZ ATION 03/14/2025 [facility] Source Comments (unrecognize d section and content) In the event this informatio n is protected by the Federal Confidentiality of Alcohol and Drug Abuse Patient Records regulations: The Federal rules restrict any use of the information to criminally investigate or prosecute any alcohol or drug abuse patient.[facility] Hospital[facility] the event this information is protected by the Federal Confidentiality of Alcohol and Drug Abuse Patient Records regulations: The Federal rules restrict any use of the information to criminally investigate or prosecute any alcohol or drug abuse patient.[facility] the event this information is protected by the Federal Confidentiality of Alcohol and Drug Abuse Patient Records regulations: The Federal rules restrict any use of the information to criminally investigate or prosecute any alcohol or drug abuse patient.[facility] the event this information is protected by the Federal Confidentiality of Alcohol and Drug Abuse Patient Records regulations: The Federal rules restrict any use of the information to criminally investigate or prosecute any alcohol or drug abuse patient.[facility] the event this information is protected by the Federal Confidentiality of Alcohol and Drug Abuse Patient Records regulations: The Federal rules restrict any use of the information to criminally investigate or prosecute any alcohol or drug abuse patient.[facility] Hospital[facility] the event this information is protected by the Federal Confidentiality of Alcohol and Drug Abuse Patient Records regulations: The Federal rules restrict any use of the information to criminally investigate or prosecute any alcohol or drug abuse patient.[facility] Hospital[facility] the event this information is protected by the Federal Confidentiality of Alcohol and Drug Abuse Patient Records regulations: The Federal rules restrict any use of the information to criminally investigate or prosecute any alcohol or drug abuse patient.[facility] Hospital[facility] the event this information is protected by the Federal Confidentiality of Alcohol and Drug Abuse Patient Records regulations: The Federal rules restrict any use of the information to criminally investigate or prosecute any alcohol or drug abuse patient.[facility] Hospital[facility] the event this information is protected by the Federal Confidentiality of Alcohol and Drug Abuse Patient Records regulations: The Federal rules restrict any use of the information to criminally investigate or prosecute any alcohol or drug abuse patient.[facility] Hospital[facility] the event this information is protected by the Federal Confidentiality of Alcohol and Drug Abuse Patient Records regulations: The Federal rules restrict any use of the information to criminally investigate or prosecute any alcohol or drug abuse patient.[facility] Hospital[facility] the event this information is protected by the Federal Confidentiality of Alcohol and Drug Abuse Patient Records regulations: The Federal rules restrict any use of the information to criminally investigate or prosecute any alcohol or drug abuse patient.[facility] HospitalIn the event this information is protected by the Federal Confidentiality of Alcohol and Drug Abuse Patient Records regulations: The Federal rules restrict any use of the information to criminally investigate or prosecute any alcohol or drug abuse patient.[facility] HospitalIn the event this information is protected by the Federal Confidentiality of Alcohol and Drug Abuse Patient Records regulations: The Federal rules restrict any use of the information to criminally investigate or prosecute any alcohol or drug abuse patient.[facility] Hospital[facility] the event this information is protected by the Federal Confidentiality of Alcohol and Drug Abuse Patient Records regulations: The Federal rules restrict any use of the information to criminally investigate or prosecute any alcohol or drug abuse patient.[facility] HospitalIn the event this information is protected by the Federal Confidentiality of Alcohol and Drug Abuse Patient Records regulations: The Federal rules restrict any use of the information to criminally investigate or prosecute any alcohol or drug abuse patient.[facility] HospitalIn the event this information is protected by the Federal Confidentiality of Alcohol and Drug Abuse Patient Records regulations: The Federal rules restrict any use of the information to criminally investigate or prosecute any alcohol or drug abuse patient.[facility] HospitalIn the event this information is protected by the Federal Confidentiality of Alcohol and Drug Abuse Patient Records regulations: The Federal rules restrict any use of the information to criminally investigate or prosecute any alcohol or drug abuse patient.[facility] HospitalIn the event this information is protected by the Federal Confidentiality of Alcohol and Drug Abuse Patient Records regulations: The Federal rules restrict any use of the information to criminally investigate or prosecute any alcohol or drug abuse patient.[facility] Reason for Visit (unrecogniz ed section and content) Reason Comments Consult bladder prolapse, tw daron, uncomfortable, pressure with constipation Reason Comments New Patient Evaluation Low Back Pain States a low back pa in with bilateral calf twitching for about 6 months. Pain 09/13 Reason Comments MRI Appointment Follow Up Reason Comments MRI Appointment Reason Comments Follow Up Results - Mri Reason Comments Radiology MRI Specialty Diagnoses / Procedures Referred By Contac t Referred To Contact MR IMAGING Diagnoses Hyperreflexia Syringomyelia and syringobulbia (HCC) Procedures MRI BRAIN WO/W IVCON MRI BRAIN BRAIN STEM W/O W/[place] [address] [place] [id number] Mr [facility] [place] [address] Referral ID Status Reason Start Date Expiration Date V isits Requested Visits Authorized [id number] Closed Auto-Generate d Referral 11/06/2023 07/06/2024 1 1 Reason Comments New Patient Consult Specialty Diagnoses / Procedures Referred By Contac t Referred To Contact Neurology Diagnoses Fasciculation Hyperreflexia Procedures CONSULT TO NEUROLOGY OFFICE/OUTPATIENT NEW HIGH MDM 60 [place] [address] [place] [id number] Referral ID Status Reason Start Date Expiration Date V isits Requested Visits Authorized [id number] Closed PCP Requested Referral 12/12/2023 12/11/2024 1 1 Reason Comments Sleeping Problem Reason Comments Sleeping Problem Specialty Diagnoses / Procedures Referred By Contac t Referred To Contact MR IMAGING Diagnoses Brain cyst Procedures MRI BRAIN WO/W IVCON MRI BRAIN BRAIN STEM W/O W/CONTRAST MATERIAL Janna Gilman MD [address] [place] [id number] Mr [facility] [place] [address] Referral ID Status Reason Start Date Expiration Date V isits Requested Visits Authorized [id number] Closed Auto-Generate d Referral 05/06/2024 06/05/2025 1 1 Reason Comments Thyroid Nodule 6 month ultrasound T Reason Comments Postmenopausal bleeding Reason Comments Gynecologic Exam Pt is here for annua l exam. Reason Comments Vaginal Lesions Reason Comments Follow-up Reason Comments EMB/Endosee Reason Comments Med Change Request Reason Comments Thyroid Nodule 6 month ultrasound Reason Comments New Patient Specialty Diagnoses / Procedures Referred By Contac t Referred To Contact Diagnoses Migraine without status migrainosus, not intractable, unspecified migraine type Procedures OFFICE/OUTPATIENT NEW HIGH MDM 60 MINUTES Janna Gilman MD [address] [place] [address] Phone: tel: fax: Referral ID Status Reason Start Date Expiration Date V isits Requested Visits Authorized [id number] Closed PCP Requested Referral 10/28/2024 10/28/2025 1 1 Stephanie Perrin MA - 09/06/2020 [...] Team Status: Inactive Member Role Status Dates Shara He , PSYCHOLOGIST-C Attending Provider Active PHYSICIAN NO FAMILY Primary [...] September 17, 2023 End: September 17, 2023 Inside Sales Territory Manager Relationship Specialty Start Date End Date Yannick Velázquez, DO [address] [place] [id number] PCP - General Family Medicine 08/31/20 Yannick Velázquez, DO [address] [place] [id number] Referring Family Medicine 08/31/20 Inside Sales Territory Manager Relationship Specialty Start Date End Date Yannick Velázquez, DO [address] [place] [address] PCP - General Family Medicine 08/31/20 Yannick Velázquez, DO [address] [place] [id number] Referring Family Medicine 08/31/20 Inside Sales Territory Manager Relationship Specialty Start Date End Date Yannick Velázquez, DO [address] [place] [phone] PCP - General Family Medicine 08/31/20 Yannick Velázquez, DO [address] [place] [phone] Referring Family Medicine 08/31/20 Inside Sales Territory Manager Relationship Specialty Start Date End Date Yannick Velázquez, DO [address] [place] [address] PCP - General Family Medicine 08/31/20 Yannick Velázquez, [address] [place] [address] Referring Family Medicine 08/31/20 Inside Sales Territory Manager Relationship Specialty Start Date End Date Yannick Velázquez, DO [address] [place] [address] PCP - General Family Medicine 08/31/20 Yannick Velázquez, [address] [place] [phone] Referring Family Medicine 08/31/20 Team Status: Active Member Role Status Dates Yannick Velázquez DO Primary Care Provider Active S tart: September 24, 2023 Prabhjot Tafoya LPN Attending Provider Active St art: September 24, 2023 Inside Sales Territory Manager Relationship Specialty Start Date End Date Yannick Velázquez, [address] [place] [phone] PCP - General Family Medicine 08/31/20 Yannick Velázquez, [address] [place] [address] Referring Family Medicine 08/31/20 Inside Sales Territory Manager Relationship Specialty Start Date End Date Yannick Velázquez, [address] [place] [address] PCP - General Family Medicine 08/31/20 Yannick Velázquez, [address] [place] [address] Referring Family Medicine 08/31/20 Inside Sales Territory Manager Relationship Specialty Start Date End Date Yannick Velázquez, DO [address] [place] [address] PCP - General Family Medicine 08/31/20 Yannick Velázquez, DO [address] [place] [address] Referring Family Medicine 08/31/20 Inside Sales Territory Manager Relationship Specialty Start Date End Date Yannick Velázquez, DO [address] [place] [address] PCP - General Family Medicine 08/31/20 Yannick Velázquez, DO [address] [place] [address] Referring Family Medicine 08/31/20 Inside Sales Territory Manager Relationship Specialty Start Date End Date Yannick Velázquez, DO [address] [place] [address] PCP - General Family Medicine 08/31/20 Yannick Velázquez, DO [address] [place] [address] Referring Family Medicine 08/31/20 Inside Sales Territory Manager Relationship Specialty Start Date End Date Yannick Velázquez, DO [address] [place] [address] PCP - General Family Medicine 08/31/20 Yannick Velázquez, DO [address] [place] [phone] Referring Family Medicine 08/31/20 Team Status: Active Member Role Status Dates Yannick Velázquez DO Primary Care Provider Active S tart: March 23, 2024 Janna Gilman MD Attending Provider Active Sta rt: March 23, 2024 Team Status: Inactive Member Role Status Dates Yannick Velázquez DO Primary Care Provide r, Attending Provider Active Start: March 24, 2024 End: March 24, 2024 Inside Sales Territory Manager Relationship Specialty Start Date End Date Yannick Velázquez MD [address] [place], [place] [phone] PCP - General Family Medicine 01/08/23 Inside Sales Territory Manager Relationship Specialty Start Date End Date Yannick Velázquez MD [address] [place], [place] [phone] PCP - General Family Medicine 01/08/23 Inside Sales Territory Manager Relationship Specialty Start Date End Date Yannick Velázquez MD [address] [place], [place] [phone] PCP - General Family Medicine 01/08/23 Inside Sales Territory Manager Relationship Specialty Start Date End Date Yannick Velázquez DO [address] [place] [address] PCP - General Family Medicine 08/31/20 Yannick Velázquez DO [address] [place] [phone] Referring Family Medicine 08/31/20 Inside Sales Territory Manager Relationship Specialty Start Date End Date Yannick Velázquez MD [address] [place] [address] PCP - General Family Medicine 01/08/23 Inside Sales Territory Manager Relationship Specialty Start Date End Date Yannick Velázquez DO [address] [place] [address] PCP - General 06/11/17 Inside Sales Territory Manager Relationship Specialty Start Date End Date Yannick Velázquez DO [address] [place] [address] [place] [address] PCP - General 06/11/17 Inside Sales Territory Manager Relationship Specialty Start Date End Date Yannick Velázquez DO [address] [place] [address] [place] [address] PCP - General 06/11/17 Inside Sales Territory Manager Relationship Specialty Start Date End Date Yannick Velázquez DO [address] [place] [address] PCP - General 06/11/17 Inside Sales Territory Manager Relationship Specialty Start Date End Date Yannick Velázquez DO [address] [place] [address] PCP - General 06/11/17 Inside Sales Territory Manager Relationship Specialty Start Date End Date Yannick Velázquez DO [address] [place] [address] PCP - General 06/11/17 Team Status: Inactive Member Role Status Dates Yannick eVlázquez DO Primary Care Provide r, Attending Provider Active Start: October 20, 2024 End: October 20, 2024 Inside Sales Territory Manager Relationship Specialty Start Date End Date Yannick Velázquez DO [address] [place] [address] PCP - General 06/11/17 Inside Sales Territory Manager Relationship Specialty Start Date End Date Yannick Velázquez DO [address] [place] [address] [place] [address] PCP - General 06/11/17 Inside Sales Territory Manager Relationship Specialty Start Date End Date Yannick Velázquez DO [address] [place] [phone] PCP - General 06/11/17 Inside Sales Territory Manager Relationship Specialty Start Date End Date Yannick Velázquez DO [address] [place], [place] [phone] PCP - General 01/18/19 Team Status: Inactive [...] January 03, 2025 End: January 03, 2025 Inside Sales Territory Manager Relationship Specialty Start Date End Date Yannick Velázquez MD [address] [place] [address] [place] [address] PCP - General Family Medicine 01/08/23 Inside Sales Territory Manager Relationship Specialty Start Date End Date Yannick Velázquez MD [address] [place] [address] PCP - General Family Medicine 01/08/23 Inside Sales Territory Manager Relationship Specialty Start Date End Date Yannick Velázquez MD [address] [place] [address] PCP - General Family Medicine 01/08/23 Team Status: Inactive Member Role Status Dates Yannick Velázquez DO Primary Care Provider Active S tart: February 08, 2025 End: February 08, 2025 Yannick Velázquez DO Attending Provider Active Star t: February 08, 2025 End: February 08, 2025 Inside Sales Territory Manager Relationship Specialty Start Date End Date Yannick Velázquez DO [address] [place] [address] PCP - General Family Medicine 08/31/20 Yannick Velázquez DO [address] [place] [address] Referring Family Medicine 08/31/20 Team Status: Inactive Member Role Status Dates Yannick Velázquez DO Primary Care Provider Active S tart: March 22, 2025 End: March 22, 2025 Yannick Velázquez DO Attending Provider Active Star t: March 22, 2025 End: March 22, 2025 Goals (unrecognized section and content) Goals [...] BE BASED ON THE PRIMARY CLINICAL RECORDS. [facility]. provides no warranty or guarantee of the accuracy or completeness of information in this document.
--- NOTE | 2025-03-25 07:27 | XR_ITS ---
The [address] [address] Patient Name: BALA SULTANA MRN: [id number] date: 1965 Sex: F Assigned Patient Location: US Current Patient Location: US Accession/Order Number: [id number] Exam Date: 03/25/2025 07:35 Report Date: 03/25/2025 08:24 At the request of: YANNICK BATRES Procedure: XR chest 2V CLINICAL DATA: Pain between shoulder blades, intermittently radiating down the arms for the past 3 months. No injury PA AND LATERAL CHEST: COMPARISON: None There is no focal parenchymal consolidation, effusion or pneumothorax. The cardiac, hilar and mediastinal silhouettes are within normal limits. There is no vascular congestion. The visualized bony thorax is intact. There is S-shaped thoracolumbar curvature and minor endplate spurring. XR/XR chest 2V IMPRESSION: NO ACUTE CARDIOPULMONARY ABNORMALITY. THORACIC SPINE - 3 views: COMPARISON: None AP, lateral and swimmer's views were obtained. There is dextroscoliotic curvature. There is no evidence of compression fracture or displacement. The pedicles are intact. There is minor endplate spurring. There are no paraspinal soft tissue abnormalities. IMPRESSION: SCOLIOSIS AND MINOR DEGENERATIVE CHANGE. NO ACUTE BONY FINDINGS.. Impression dictated by: Poppy Ashley M.D. 03/25/2025 8:24 AM Dictation Location: [place] [address] Electronically authenticated by: [id number] Y Date: 03/25/2025 08:24
--- NOTE | 2025-03-25 07:27 | XR_ITS ---
The [address] [address] Patient Name: BALA SULTANA MRN: [id number] date: 1965 Sex: F Assigned Patient Location: US Current Patient Location: US Accession/Order Number: [id number] Exam Date: 03/25/2025 07:35 Report Date: 03/25/2025 08:24 At the request of: YANNICK BATRES Procedure: XR chest 2V CLINICAL DATA: Pain between shoulder blades, intermittently radiating down the arms for the past 3 months. No injury PA AND LATERAL CHEST: COMPARISON: None There is no focal parenchymal consolidation, effusion or pneumothorax. The cardiac, hilar and mediastinal silhouettes are within normal limits. There is no vascular congestion. The visualized bony thorax is intact. There is S-shaped thoracolumbar curvature and minor endplate spurring. XR/XR thoracic spine 3V IMPRESSION: NO ACUTE CARDIOPULMONARY ABNORMALITY. THORACIC SPINE - 3 views: COMPARISON: None AP, lateral and swimmer's views were obtained. There is dextroscoliotic curvature. There is no evidence of compression fracture or displacement. The pedicles are intact. There is minor endplate spurring. There are no paraspinal soft tissue abnormalities. IMPRESSION: SCOLIOSIS AND MINOR DEGENERATIVE CHANGE. NO ACUTE BONY FINDINGS.. Impression dictated by: Poppy Ashley M.D. 03/25/2025 8:24 AM Dictation Location: [place] [address] Electronically authenticated by: [id number] Y Date: 03/25/2025 08:24
--- NOTE | 2025-03-25 07:27 | US_ITS ---
The [address] [address] Patient Name: BALA SULTANA MRN: [id number] date: 1965 Sex: F Assigned Patient Location: US Current Patient Location: Accession/Order Number: [id number] Exam Date: 03/25/2025 07:43 Report Date: 03/25/2025 08:39 At the request of: YANNICK BATRES Procedure: US right upper quadrant LIMITED RIGHT UPPER QUADRANT ABDOMINAL ULTRASOUND CLINICAL HISTORY: Intermittent right upper quadrant pain for the past couple months with loss of appetite and burping COMPARISON: CT 10/24/2023 The gallbladder is physiologically distended without shadowing calculi, wall thickening or pericholecystic fluid. No intra- or extrahepatic biliary dilatation is evident. The common duct measures 2 - 3 mm. The liver is normal in echogenicity. No intrahepatic masses are seen. There is appropriate hepatopetal flow within the main portal vein. The pancreas shows no significant sonographic abnormality. Cursory evaluation of the right kidney reveals no hydronephrosis or fluid within Pulido's pouch. US/US right upper quadrant IMPRESSION: NEGATIVE ULTRASOUND OF THE RIGHT UPPER QUADRANT. Impression dictated by: Poppy Ashley M.D. 03/25/2025 8:39 AM Dictation Location: [place] [address] Electronically authenticated by: [id number] Y Date: 03/25/2025 08:39
== END 2025-03-25 07:21 | disposition home or self-care (01) ==
LOC: US 07:21
PROVIDERS: PCP Family Medicine; Visit Provider Family Medicine
DX: R10.9 Unspecified abdominal pain (principal); R07.9 Chest pain, unspecified; M54.6 Pain in thoracic spine; M41.84 Other forms of scoliosis, thoracic region
CPT/HCPCS: 71046; 72072; 76705

== ENCOUNTER 2025-04-06 16:22 | Outpatient (OUT) | payer OTHER, SELFPAY ==
[2025-04-06 17:21] LABS: Alanine Aminotransferase 27 U/L (14-59); Albumin Globulin Ratio 1.0; Albumin Level 3.8 g/dL (3.4-5.0); Alkaline Phosphatase 55 U/L (46-116); Anion Gap 10.4; Aspartate Amino Transferase 16 U/L (15-37); Blood Urea Nitrogen 12.0 mg/dL (7.0-18.0); Calcium 8.8 mg/dL (8.5-10.1); Carbon Dioxide 31.5 mmol/L (21.0-32.0); Chloride 101 mmol/L (98-107); Estimated GFR (African America >60 (>=60 mL/min/1.73m^2); Estimated GFR (Non-African Ame >60 (>=60 mL/min/1.73m^2); Free T3 2.65 pg/mL (2.18-3.98); Globulin 3.7 g/dL; Glucose 100 mg/dL (74-106); Potassium 3.9 mmol/L (3.5-5.1); Sodium 139 mmol/L (136-145); Thyroid Stimulating Hormone 0.990 uIU/mL (0.358-3.740); Total Protein 7.5 g/dL (6.4-8.2)
== END 2025-04-06 16:23 | disposition home or self-care (01) ==
PROVIDERS: PCP Family Medicine; Visit Provider Family Medicine
DX: Z79.899 Other long term (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 therapy (principal); E53.8 Deficiency of other specified B group vitamins; R63.4 Abnormal weight loss
CPT/HCPCS: 36415; 80053; 84439; 84443; 84481; 86340

== ENCOUNTER 2025-04-12 09:37 | Outpatient (OUT) | payer OTHER, SELFPAY ==
--- OUTSIDE RECORDS SUMMARY | 2025-04-12 09:43 | XMS_ITS | CCD ---
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 Name Role Phone Yannick Velázquez Primary Care Provider Yannick Velázquez Unavailable Yannick Velázquez Unavailable Shara Cutler Unavailable SELAM Cutler Attending Provider [phone] NO FAMILY, PHYSICIAN Primary Care Provider Unava [...] GIRVIN, DR LANIER Attending Unavailable GIRVIN, DR LANIRE Primary Care Unavailable GIRVIN, DR LANIER Consulting Unavailable GIRVIN, DR LANIER Primary Care Unavailable MARKER, DR NEVAREZ Admitting Unavailable MARKER, DR NEVAREZ Attending Unavailable MARKER, DR NEVAREZ Consulting Unavailable SAID, MARGO Consulting Unavailable DO Yannick Velázquez Primary Care Provider [phone] DO Yannick Velázquez Attending Provider Victorina Martinez Unavailable DO Yannick Velázquez Primary Care Provider DO Yannick Velázquez Attending Provider Tonia Sandoval Unavailable SHER [place] Emergency Provider MD Victorina Martinez Attending Provider [phone] Yannick Velázquez DO Primary Care Unavailab Farrukh [...] Provider Yannick Velázquez DO Primary Care Provider [phone] RADHA HERNÁNDEZA M Referring Unavailable YANNICK VELÁZQUEZ Primary Care Unavailable MANUEL RAVEN M Referring Unavailable YANNICK VELÁZQUEZ Primary Care Unavailable JOSE EDUARDO, KATIA Referring Unavailable YANNICK VELÁZQUEZ Primary Care Unavailable JOSE EDUARDO, KATIA L Referring Unavailable YANNICK VELÁZQUEZ Primary Care Unavailable JOSE EDURADO, KATIA Attending Unavailable JOSE EDUARDO, KATIA Referring Unavailable YANNICK VELÁZQUEZ Primary Care Unavailable RAVEN SMITH Attending Unavailable SARAH RAVEN M Referring Unavailable YANNICK VELÁZQUEZ Primary Care Unavailable RAVEN SMITH Attending Unavailable SARAH RAVEN M Referring Unavailable YANNICK VELÁZQUEZ Primary Care Unavailable Yannick Velázquez DO Primary Care Provider [phone] YANNICK VELÁZQUEZ Referring Unavailable YANNICK VELÁZQUEZ Primary [...] Care Provider Yannick Velázquez DO Attending Provider Yannick Velázquez MD Primary Care Provider [phone] REZA GORMAN Attending Unavailable REZA GORMAN Attending Unavailable REZA GORMAN Attending Unavailable SUZANNE GEE Attending Unavailable IVY GARCIA Attending Unavailable Yannick Velázquez DO Primary Care Provider [phone] Yannick Velázquez DO Attending Provider YANNICK HARPER Attending Unavailable GILMAN, JANNA H Referring Unavailable YANNICK VELÁZQUEZ Primary Care Unavailable GILMAN, JANNA H Attending Unavailable ABIODUN CASTANO Referring Unavailable YANNICK VELÁZQUEZ Primary Care Unavailable GILMAN, JANNA H Referring Unavailable YANNICK VELÁZQUEZ Primary Care Unavailable KALINA, JANNA H Referring Unavailable YANNICK VELÁZQUEZ Primary Care Unavailable Yannick Velázquez DO Primary Care Provider Yannick Velázquez DO Attending Provider [phone] Allergies Allergy Classification Reported Allergen(s) Allergy Type Date of Onset Reaction(s) Facility (19 sources) Adhesive Tape-Silicones; Translations: [ADHESIVE TAPE-SILICONES] Drug Allergy 09-07-19 21 Rash, Hives [facility] (20 sources) Nitrofurantoin; Translations: [Macrobid] Drug Allergy Diarrhea (finding) [facility] Repository (20 sources) steri-strips Propensity to adverse reactions rash iwi [facility] E-Sign Other (3 sources) Adhesive bandage; Translations: [Adhesive Bandage] Drug allergy (disorder) 12-17-19 19 Eruption of skin (disorder) [facility] Repository (20 sources) NITROFURANTOIN, MACROCRYSTALS / Nitrofurantoin, Monohydrate Drug Allergy 10-27-19 25 Diarrhea [facility] E-Sign Other (1 source) steri stips; Translations: [steri stips] Propensity to adverse reactions (disorder) [facility] Repository (11 sources) Adhesive Tape; Translations: [adhesive tape] Allergy to substance 09-17-19 24 rash [facility] (20 sources) Nitrofurantoin; Translations: [nitrofurantoin] Drug Allergy 09-17-19 diarrhea [facility] (20 sources) Adhesive agent; Translations: [ADHESIVE] Propensity to adverse reactions to drug (disorder) 05-20-20 Itching, Rash, Swelling [facility] Repository (17 sources) Fluorouracil-Adhe sive Bandage; Translations: [FLUOROURACIL-ADH ESIVE BANDAGE] Drug Allergy 12-17-19 19 Rash [facility] (14 sources) Wound Dressing Adhesive Drug Allergy 01-10-20 23 Rash [facility] Healthcare Work Phone: (3 sources) NITROFURANTOIN MONOHYD/M-CRYST; Translations: [NITROFURANTOIN MONOHYD/M-CRYST] Propensity to adverse reactions to drug (disorder) 10-27-19 [facility] Repository (1 source) ALLERGIES NOT ON FILE; Translations: [ALLERGIES NOT ON FILE] Propensity to adverse reactions (disorder) [facility] Repository Medications Current Medications Medication Drug Class(es) Dates Sig (Normalized) Sig (Original) ALPRAZolam 0.25 mg oral tablet (20 sources) Benzodiazepine Start: 09-29-2024 End: 03-22-2025 Alprazolam (Xanax) 0.25 mg tablet Active 0 PO .Q8-12 hrs prn 36 March 22, 2025 3:49pm 1/2 to 1 tablet Orally q8-12 hrs [...] Start: 02-27-2017 take 2 tablets by mo [facility] every eight hours as needed ALPRAZolam [...] needed in the evening for anxiety. Active b complex-folic acid tablet (14 sources) take 1 tablet by erika th once daily b complex-folic acid tablet Take [...] Active busPIRone hydrochloride 5 mg oral tablet (4 sources) Start: 03-22-2025 End: 03-22-2025 take 1 [...] mouth once daily. 0 Active estrogen cream (2 sources) Start: 03-22-2025 estrogen cream Active TOPICAL March [...] Active magnesium citrate 125 mg oral capsule (5 sources) Start: 10-20-2024 take 1 capsule by mouth once daily Magnesium Citrate 125 mg capsule Active 125 MG PO Daily October 20, 2024 12:00am Complies with drug therapy magnesium oxide 400 mg oral tablet (20 sources) Start: 09-17-2023 End: 08-04-2024 methlyfolate 800 mg (12 sources) Start: 09-29-2024 Start: 09-29-2024 methlyfolate 8 00 mg Active PO .PRN September 29, 2024 9:20am Complies with drug therapy Start: 09-29-2024 methlyfolate 8 00 mg Active PO .PRN September 29, 2024 9:20am Start: 06-15-2024 End: 09-29-2024 methlyfolate 800 mg Disconti nued PO June 15, 2024 1:00am September 29, 2024 9:21am omega 3 (3 sources) Start: 02-08-2025 omega 3 Active PO February 08, 2025 12:00am Complies with drug therapy Start: 02-08-2025 progesterone 200 mg oral capsule (12 sources) Progesterone Start: 10-20-2024 take 1 capsule [...] / oxyCODONE hydrochloride 5 mg oral tablet (12 sources) Opioid Agonist Start: 02-23-2023 End: 09-17-2023 take 1 tablet by mouth every four hours as needed for pain Oxycodone-Acetamin ophen 5-325 mg tablet Discontinued 1 TAB PO Q4H as needed for Pain February 23, 2023 12:00am September 17, 2023 3:35pm amoxicillin 500 mg oral capsule (7 sources) Penicillin-class Antibacterial Start: 02-08-2025 End: 03-22-2025 [...] mg / clavulanate 125 mg oral tablet (4 sources) Penicillin-class Antibacterial Start: 11-24-2024 End: 01-03-2025 [...] days 2-5 for 5 days Jun, Not-Taking B complex (3 sources) Start: 02-08-2025 End: 04-06-2025 B complex Discontinued PO February 08, 2025 12:00am April 06, 2025 3:24pm Start: 02-08-2025 cefTRIAXone (20 sources) Cephalosporin Antibacterial Start: 12-31-2013 Rocephin 500 mg Dec, 1 grm cetirizine hydrochloride 10 mg oral tablet (20 sources) Histamine-1 Receptor Antagonist Start: 01-09-2022 ZyrTEC Allergy 10 MG 1 tablet Orally 1-3 times a day prn Jan, Not-Taking ciprofloxacin 500 mg oral tablet (7 sources) Quinolone Antimicrobial Start: 09-29-2024 End: 10-20-2024 take 1 tablet by mouth twice daily Ciprofloxacin Hcl (Cipro) 500 mg tablet Discontinued 500 MG PO Twice daily 6 September 29, 2024 12:00am October 20, 2024 12:43pm Start: 03-01-2020 take 1 tablet by erika th every twelve hours Cipro 500 MG 1 tablet Orally bid for 5 days Feb, Active clonazePAM 0.5 mg oral tablet (6 sources) Benzodiazepine Start: 06-15-2024 End: 09-29-2024 take [...] Not-Taking doxycycline hyclate 100 mg oral capsule (8 sources) Tetracycline-class Drug Start: 11-16-2024 End: 11-24-2024 take 1 capsule by mouth twice daily Doxycycline Hyclate 100 mg capsule Discontinued 100 MG PO Twice daily November 16, 2024 11:24am November 24, 2024 2:50pm 84 hr estradiol 0.81093 mg/hr transdermal system (20 sources) Estrogen Start: 01-03-2025 End: 02-08-2025 [...] Discontinued 1 PATCH TRANSDERML Twice a Week 8 October 20, 2024 12:00am January 03, 2025 [...] week. 42.5 g 09/30/2023 05/18/2024 Discontinued (Reorder) famotidine 20 mg oral tablet (1 source) Histamine-2 Receptor Antagonist Start: 03-31-2025 End: 04-06-2025 take 1 tablet by mouth twice daily Famotidine (Pepcid) 20 mg tablet Discontinued 20 MG PO Twice daily 60 March 31, 2025 12:00am April 06, 2025 3:25pm ferrous sulfate 325 mg oral tablet (11 sources) Start: 09-17-2023 End: 03-24-2024 take 1 [...] / vitamin b12 0.5 mg oral tablet (15 sources) Vitamin B12 Start: 11-09-2019 End: 09-17-2023 take 1 tablet by mouth once daily Vit Y19-Kidqyix Fact-Fa Cmb #2 (Intrinsi I47-Ptdhao) 500-20-800 mcg-mg-mcg Tablet Discontinued 1 TAB PO Daily November 09, 2019 12:00am September 17, 2023 3:36pm hydroxocobalamin 1 mg/ml injectable solution (16 sources) Antidote Start: 11-12-2023 End: 03-24-2024 inject [...] November 12, 2023 2:43pm methylcobalamin 12.5 mg/mL (6 sources) Start: 11-10-2023 End: 11-12-2023 inject 12.5 [...] Vi tamin B 12 INJECTIONS 0 Active nystatin 147173 unt oral tablet (3 sources) Polyene Antifungal Start: 02-08-2025 End: 04-06-2025 take 2 tablets by mouth three times daily Nystatin 500,000 unit tablet Discontinued [id number] UNIT PO Three times daily 60 February 08, 2025 12:00am April 06, 2025 3:25pm phenazopyridine hydrochloride 200 mg oral tablet (5 sources) Start: 09-29-2024 End: 10-20-2024 take 1 [...] 0 Active predniSONE 10 mg oral tablet (12 sources) Start: 02-23-2023 End: 09-17-2023 Prednisone 10 [...] by mouth. tobramycin 3 mg/ml ophthalmic solution (15 sources) Aminoglycoside Antibacterial Start: 4 End: take [...] unspecified Episodi c Deficiency and other anemia (15 sources) Nutritional anemia; Translations: [Vitamin B12 deficiency anemia, unspecified] 07-06-2019 Episodic Comment on above: Problem List clean-u p per request of Phys. EHR Cmte Diseases of white blood cells (20 sources) Leukopenia; Translations: [Decreased white blood cell count, unspecified] Chronic E Codes: Natural/environment (8 sources) Bitten or stung by nonvenomous insect and other nonvenomous arthropods, initial encounter; Translations: [Cat scratch - wound] Onset: 01-10-20 Resolved : 01-10-20 Episodic Fluid and electrolyte disorders (2 sources) Hypokalemia Episodic Genitourinary symptoms and ill-defined conditions (20 sources) Dysuria; Translations: [Nocturia] Onset: 09-07-19 Resolved : 01-10-20 23 09-06-2020 Episodic Heart valve disorders (4 sources) Heart murmur; Translations: [Cardiac murmur, unspecified] Onset: 01-27-20 25 10-21-2023 Episodic Inflammation; infection of eye (except that caused by tuberculosis or sexually transmitteddisease) (20 sources) Keratoconjunctivitis sicca, not specified as Sjogren's; Translations: [Keratoconjunctivitis sicca, not specified as Sjogren's, bilateral] Chronic Inflammation; infection of eye (except that caused by tuberculosis or sexually transmitteddisease) (1 source) Unspecified conjunctivitis Episodic Malaise and fatigue (15 sources) Other fatigue; Translations: [Fatigue] Episodic Menopausal [...] 10-21-2023 Chronic Other aftercare (8 sources) Other custodial (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 therapy; Translations: [OTH 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 SETTER LOCKSTITCH CURRENT DRUG THERAPY] Onset: 12-12-19 Resolved : 12-12-19 Episodic Other and unspecified benign neoplasm (7 sources) Lipoma (clinical); Translations: [Benign lipomatous neoplasm, unspecified] 03-24-2024 Episodic Other and unspecified benign neoplasm (1 source) Benign lipomatous neoplasm, unspecified; Translations: [Lipoma, unspecified site] 03-24-2024 Episodic Other circulatory disease (1 source) Other specified symptoms and signs involving the circulatory and respiratory systems Episodic Other congenital anomalies (5 sources) Pectus excavatum; Translations: [Pectus excavatum] 03-22-2025 [...] [Unspecified urethral stricture, male, unspecified site] Onset: 01-27-20 25 05-30-2020 Episodic Other eye disorders (1 source) Vitreous [...] unspecified] Onset: 07-06-20 Episodic Other gastrointestinal disorders (5 sources) Burping; Translations: [Eructation] 03-22-2025 Episodic Other gastrointestinal disorders (2 sources) Altered bowel function; Translations: [Change in bowel habit] 04-06-2025 Episodic Other gastrointestinal disorders (2 sources) Dysphagia; Translations: [Dysphagia, unspecified] 04-06-2025 Episodic Other hereditary and degenerative nervous system conditions (20 sources) Restless legs; Translations: [Restless legs syndrome] Onset: 01-27-2004-02-2024 Chronic Other hereditary and degenerative nervous system conditions (3 sources) Restless legs syndrome Chronic Other inflammatory condition of skin (8 sources) Pruritus, unspecified; Translations: [Pruritus] 09-29-2024 Episodic Other lower respiratory disease (1 source) Other forms of dyspnea Episodic Other nervous system disorders (15 sources) Peripheral nerve disease ; Translations: [Polyneuropathy, [...] [Fasciculation] 06-07-2024 Episodic Other nervous system disorders (10 sources) Paresthesia of left upper limb; Translations: [Paresthesia of skin] 01-03-2025 Episodic Other non-traumatic joint disorders (4 sources) Pain in left shoulder; Translations: [Left [...] (2 sources) Abnormal weight loss Episodic Other nutritional; endocrine; and metabolic disorders (2 sources) Weight decreased; Translations: [Abnormal weight loss] 04-06-2025 Episodic Other screening for suspected conditions (not [...] Allergic rhinitis; Translations: [Allergic rhinitis, unspecified] Onset: 01-27-20 25 04-02-2024 Chronic Other upper respiratory disease (1 source) Allergic rhinitis, unspecified Onset: 01-10-20 Resolved : 01-10-20 Chronic Other upper respiratory disease (6 sources) Nasal discharge; Translations: [Other specified disorders of nose and nasal sinuses] 09-29-2024 Episodic Other upper respiratory disease (2 sources) Other specified disorders of nose and nasal sinuses; Translations: [Other disease of nasal cavity and sinuses] 09-29-2024 Episodic Other upper respiratory infections (13 sources) Acute sinusitis, unspecified; Translations: [Laryngitis] Episodic Prolapse of female genital organs (20 sources) Cystocele; Translations: [Midline cystocele] Onset: 09-07-19 21 Resolved : 09-30-19 24 09-06-2020 Chronic Residual [...] movement disorder] 09-29-2024 Chronic Residual codes; unclassified (5 sources) Periodic leg movements of sleep ; Translations: [Periodic limb movement disorder] 06-15-2024 Chronic Residual codes; unclassified (20 sources) Insomnia; Translations: [Insomnia, unspecified] 04-06-2025 Episodic Residual codes; unclassified (1 source) Family [...] Translations: [Low back pain, unspecified] Onset: 06-24-20 Unclassified (1 source) Mammographic heterogeneous density, bilateral breasts; Translations: [Mammographic heterogeneous density, bilateral breasts] Onset: 01-07-20 24 Unclassified (1 source) Breast Problem Onset: 06-23-20 Unclassified (1 source) Vaginal Lesions Onset: 06-01-20 Unclassified (1 source) Gynecologic Exam Onset: 05-18-20 Urinary tract infections (1 source) Cystitis, unspecified [...] Test Name Value Interpretation Reference Range Facility CNOVon 03-08-2025 CNOV Office Visit ([facility]2 ) KAYYEDNA Eddy ([id number]) 1965 F Date Time Provider Department 03/08/25 1:00 PM YANNICK HARPER [facility] During your visit today, we recorded the following information about you: Pulse Blood pressure Weight 89/minute 167/90 67 kg Yannick Harper DO 03/08/2025 2:43 PM Signed Headache and Facial Pain Section [place] [facility] [place] Date: March 08, 2025 Patient Name: Edna Sultana Referring physician: Janna Gilman [address] [place] [id number] Reason for Evaluation: Headaches HPI: Edna Sultana [...] B1, B6 WNL. Celiac, Ceruloplasmin, Copper, Zinc, Immunofixation/[place]/L ambda. > Overall consensus appears to be [...] Onset/Disruption: disruptions (more content not included)... Normal [facility] - Chemistry and C hemistry - challengeOrdered By: Yannick Velázquez on 02-08-2025 Bilirubin Ql (U) Negative [facility] Glucose (U) [Mass/Vol] Negative [facility] Ketones Ql (U) 1.000 [facility] pH (U) 7.5 [pH] [facility] Specific gravity (U) [Rel density] 1.005 [facility] Urobilinogen (U) [Mass/Vol] Negative [facility] Laboratory - Specimen inform ationOrdered By: Yannick Velázquez on 02-08-2025 Appearance (U) clear [facility] Color (U) yellow [facility] Laboratory - UrinalysisOrder ed By: Yannick Velázquez on 02-08-2025 Leukocyte esterase Test strip Ql (U) Negative [facility] Nitrite Ql (U) Negative [facility] Protein Ql (U) 15 [facility] No Panel InformationOrdered By: Yannick Velázquez on 02-08-2025 Urine Occult Blood [facility] US Thyroid glandon [address] [address] Ultrasound Report Signed Patient: EDNA SULTANA MR#: [id number] : 1965 Acct:[id number] Age/Sex: 59 / F ADM Date: 01/18/25 Loc: US Attending Dr: Reza Gorman M.D. Ordering Physician: Reza Gorman M.D. Date of Service: 01/18/25 Procedure(s): US thyroid Accession Number(s): [id number] cc: YANNICK VELÁZQUEZ; Reza Gorman M.D. [address] [address] Patient Name: EDNA SULTANA MRN: TBH:[id number] date: 1965 Sex: F Assigned Patient Location: US Current Patient Location: US Accession/Order Number: [id number] Exam Date: 01/18/2025 08:47 Report Date: 01/18/2025 [...] Ashley M.D. 01/18/2025 9:07 AM Dictation Location: [place] [address] Electronically authenticated by: [id number] Y Date: 01/18/2025 09:07 Dictated By: Poppy Ashley M.D. Signed By: 01/18/25908 DD/ 6 TD/TT: Heel Padder: [facility] Radiology, Radiologist, MD - 01/18/2025 [place] [address] Ultrasound Report Signed Patient: EDNA SULTANA MR#: [id number] : 1965 Acct:[id number] Age/Sex: 59 / F ADM Date: 01/18/25 Loc: US Attending Dr: Reza Gorman M.D. Ordering Physician: Reza Gorman M.D. Date of Service: 01/18/25 Procedure(s): US thyroid Accession Number(s): [id number] cc: YANNICK VELÁZQUEZ; Reza Gorman M.D. [place] [address] Patient Name: EDNA SULTANA MRN: [facility]:[id number] date: 1965 Sex: F Assigned Patient Location: US Current Patient Location: US Accession/Order Number: [id number] Exam Date: 01/18/2025 08:47 Report Date: 01/18/2025 [...] Ashley M.D. 01/18/2025 9:07 AM Dictation Location: [place] [address] Electronically authenticated by: [id number] Y Date: 01/18/2025 09:07 Dictated By: Poppy Ashley M.D. Signed By: 01/18/2509 DD/ 6 TD/TT: Heel Padder: [facility] Radiology Study observation (narrative) [facility] US Thyroid glandOrdered By: Radiologist Radiology on 01-18-2025 [facility] Work Phone: CT CARDIAC SCORING WO IV [...] STRUCTURES ARE THE SOLE RESPONSIBILITY OF THE MEMBERSHIP ADVISOR SUBMITTING THE ORIGINAL REPORT (NOT THIS ADDENDUM) Signed by: Ashish Hampton 12/02/2024 4:05 PM -------- ORIGINAL REPORT -------- Dictation workstation: [id number] Interpreted By: Florentin Carl, STUDY: CT CARDIAC SCORING WO IV CONTRAST; 12/01/2024 6:07 pm INDICATION: Signs/Symptoms:screeni ng. COMPARISON: None. ACCESSION NUMBER(S): [id number] ORDERING CLINICIAN: YANNICK VELÁZQUEZ TECHNIQUE: Using prospective [...] coronary heart disease events. According to the [employer] Foundation Clinical Expert Consensus [...] P et al. Circulation. 2007; 115:402-426 [employer] Floorperson: Dr. Florentin Carl, Date: 12/02/2024 3:53 pm Signed by: Florentin Carl 12/02/2024 3:53 PM Dictation workstation: [id number] [facility] POCT , urineon 10-06 Beta HCG ( test) Ql (U) Negative [facility] Interpretation and review of laboratory results Normal [facility] Surgical Pathologyon 025 Surgical Pathology Normal [facility] Comment on above: Result Comment: [facility] [address] [place] [address] Surgical Pathology Consultation Patient Name:EDNA SULTANA:1965 (Age: 59)Gender:FTaken:10/26/2024Reported:11/03/2024Physician(s):Katia Whitt M.D. ([phone])Copy To: Rec. #:[id number]: #[id number] Final Pathologic Diagnosis 1. Endocervical curettings: Negative for dysplasia 2. Endometrial biopsy: Strips and fragments of endometrial lining without atypia Cervical mucosa negative for dysplasia No intact endometrial glands and stroma for microscopic evaluation Report Electronically Signed Out nsk/11/03/2024Jonna Mei MD Interpretation performed [place] [address], License number: [id number]. Clinical History Thickened endometrium R93.89. Gross Description 1. Received in formalin labeled, KAYY, ECC is a plastic metal brush with is a pale-roldan mucoid material mixed with pale-roldan friable scant soft tissue fragments, 1.3 x 0.5 x 0.1 cm in aggregate. The specimens are filtered and submitted in a single cassette. (1, ns, A14-90790-6, m1) TB 2. Received in formalin labeled, [...] in formalin before processin.5 hours (1, ns, Z01-10263-0, m2) TB tgb/10/27/2024RG Specimen(s) Received 1: Endocervical curettings 2: Endometrial biopsy Fee Codes(s): 1; 29738 2; 11259 MAMM DIAGNOSTIC UNILAT LT W CADon 07-01-2024 MAMM DIAGNOSTIC UNILAT LT W CAD MAMM DIAGNOSTIC UNILAT LT W CAD EDNA Eddy KAYY 1965 [id number], [id number] EXAM: MAMM DIAGNOSTIC UNILAT LT W CAD, [...] 2:17 PM 1 c MBI CONT Normal [facility] US BREAST LT LIMITEDon 07-01 US BREAST LT LIMITED US BREAST LT LIMITE Danica SULTANA 1965 [id number], [id number] EXAM: MAMM DIAGNOSTIC UNILAT LT W CAD, [...] 2:17 PM 1 c MBI CONT Normal [facility] MR lumbar spine wo conon MR lumbar spine wo con [facility] Main [place] [address] [place] [address] MRI Report Signed Patient: Edna Sultana MR#: [id number] : 1965 Acct:[id number] Age/Sex: 58 / F ADM Date: 06/24/24 [facility]: Type: REG CLI Attending Dr: Ivy Garcia APRN Copies [...] Thomson Jr., D.O.06/24/2024 11:02 AM Dictation Location: [facility]-PC-23 Transcribed By: [facility] 06/24/24 1102 Dictated By: Pranay Thomson Jr, DO 06/24/24 1059 Signed By: 06/24/24 1102 Normal [facility] US PELVIC WITH TRANSVAGINALo [...] Quinn MD on 06/18/2024 7:00 AM Normal [facility] MBI LOCALIZATION LMTD ARE Aon 06-11-2024 NM MBI LOCALIZATION LMTD AREA NM MBI LOCALIZATION LMTD AREA EDNA SULTANA 1965 [id number] EXAM: NM MBI LOCALIZATION LMTD AREA, 06/11/2024 2:03 PM CLINICAL INDICATIONS: Heterogeneously dense tissue of both breasts on mammography, Supplemental screening for dense breast tissue COMPARISON: Screening mammogram 01/07/2024. No previous MBI TECHNICAL: The patient was injected intravenously with 8.1 mCi Tc Sestamibi. Dynamic imaging acquisition was initiated within 5 minutes using a Appvance dual head, planar, solid state digital system [...] 06/11/2024 3:05 PM 1 MBI CONT Normal [facility] MR Brain WO and W contrast I Von 06-10-2024 IMPRESSION: Unchanged examination. Nonenhancing T2/FLAIR hyperintense lesion in the anterior right temporal lobe is unchanged from 12/09/2023. Heel Padder: P[facility] Transcribe Date/Time: Jun 10 2024 11:32A Dictated by : YAEL HOUSE MD This examination was interpreted and the report reviewed and electronically signed by: YAEL HOUSE MD on Jun 10 2024 11:42AM [facility] [facility] RAD[facility]OLOG[facility] * * *Final Report* * * DATE OF EXAM: Jun 10 2024 11:12AM [facility] 0295 - MRI BRAIN WO/W IVCON / [...] are unremarkable. DIVISION OF RADIOLOGY Provider, Wilver Santiago [facility] - 06/10/2024 * * *Final Report* * [...] right temporal lobe is unchanged from 12/09/2023. Heel Padder: MICHAEL Transcribe Date/Time: Jun 10 2024 11:32A Dictated by : YAEL HOUSE MD This examination was interpreted and the report reviewed and electronically signed by: YAEL HOUSE MD on Jun 10 2024 11:42AM EST [facility] Radiology Study observation (narrative) [facility] MR Brain WO and W contrast I VOrdered By: Ccf Provider on 06-10-2024 [facility] MRI BRAIN WO/W IVCONon 06-10 MRI BRAIN [...] right temporal lobe is unchanged from 12/09/2023. Heel Padder: PSCB Transcribe Date/Time: Jun 10 2024 11:32A Dictated by : YAEL HOUSE MD This examination was interpreted and the report reviewed and electronically signed by: YAEL HOUSE MD on Jun 10 2024 11:42AM EST [id number] Normal [facility] DEXA SCAN CENTRAL SKELETALon 05-31-2024 DEXA SCAN [...] Arreguin MD on 05/31/2024 3:41 PM Normal [facility] URINALYSISon 05-18-2024 Bilirubin Ql (U) Negative Normal NEG [facility] Comment on above: Performed By: #### U A #### [facility] ([id number]) [address], [address] [place] [address] BLOOD/HGB Negative Normal NEG [facility] Comment on above: Performed By: #### U A #### [facility] ([id number]) [address] [place] [address] Color (U) YELLOW Normal YELLOW [facility] Comment on above: Performed By: #### U A #### [facility] ([id number]) [address] [place] [address] Glucose Ql (U) Negative Normal NEG [facility] Comment on above: Performed By: #### U A #### [facility] ([id number]) [address] [place] [address] Ketones Ql (U) Negative Normal NEG [facility] Comment on above: Performed By: #### U A #### [facility] ([id number]) [address] [place] [address] Leukocyte esterase Test strip Ql (U) Negative Normal NEG [facility] Comment on above: Performed By: #### U A #### [facility] ([id number]) [address] [place] [address] Nitrite Ql (U) Negative Normal NEG [facility] Comment on above: Performed By: #### U A #### [facility] ([id number]) [address] [place] [address] pH (U) 6.5 [pH] Normal 5.0-8.5 [facility] Comment on above: Performed By: #### U A #### [facility] ([id number]) [address] [place] [address] Protein Ql (U) Negative Normal NEG [facility] Comment on above: Performed By: #### U A #### [facility] ([id number]) [address] [place] [address] Specific gravity (U) [Rel density] 1.013 Normal 1.003-1.035 [facility] Comment on above: Performed By: #### U A #### [facility] ([id number]) [address], [address] [place] [address] TURBIDITY CLEAR Normal CLEAR [facility] Comment on above: Performed By: #### U A #### [facility] ([id number]) [address], [address] [place] [address] Urobilinogen (U) [Mass/Vol] mg/dL Normal <1.1 [facility] Comment on above: Performed By: #### U A #### [facility] ([id number]) [address], [address] [place] [address] URINE CULTUREon 05-18-2024 Bacteria identified Cx Nom (U) CULTURE RESULTS NO GROWTH AT <1000 CFU/mL Normal [facility] Comment on above: Performed By: #### 6 30-4 #### [facility] ([id number]) [address], [address] [place] [address] URINE CULTURE, ROUTINEon Bacteria identified Cx Nom [...] Bacteria identified Cx Nom (U) Performed at: [facility] Bacteria identified Cx Nom (U) [address] [place] [id number] [facility] Bacteria identified Cx Nom (U) Real Estate Accountant: Tha Jimenez PhD, Phone: [phone] [facility] Ambulatory Visit Summaryon 1 Ambulatory Visit Summary Ambulatory Visit Summary EDNA SULTANA :1965 Visit Date:04/20/2024 Ambulatory Visit Instructions Your Care Team Attending Physician - JAMIN LAZO, Florentin Ennis Primary Care Physician - Yannick Velázquez DO [...] for choosing us for your care. Normal [facility] Basophil percentageon 2023 Basophil percentage 99 ug/dL 80-[address] [facility] Comment on above: This test was leah ped, and its performance characteristics determined by the [facility] Department of Pathology and Laboratory Medicine. It has not been cleared or approved by the FDA. The [facility] Department of Pathology and Laboratory Medicine is regulated under CLIA as qualified to perform high-complexity testing. This test is used for clinical purposes. It should not be regarded as investigational or for research. CELIAC SCREENon 03-23-2024 GLIAD DEAMIDATED IGA QUAL Negative Normal Negative, Test not Indicated [facility] Comment on above: Order Comment: Speci men Type: BLOOD SPECIMEN Ordering Facility: [facility] Address: [address] [place] [address] Result Comment: This is used as an aid in diagnosis of celiac disease. Clinical correlation is required. The following results were obtained with an Inova QUANTA Lite Gliadin IgA ANGELA Gliadin. Gliadin IgA values obtained with different manufacturers' assay methods may not be used interchangeably. The magnitude of the reported IgA levels cannot be correlated to an endpoint titer. Performed By: #### L [id number] #### [facility] CLIA [id number] [address] [place] [address] [place] Gliadin peptide IgA Qn (S) 4 Units Normal <20 [facility] Comment on above: Order Comment: Kraig sandoval Type: BLOOD SPECIMEN Ordering Facility: [facility] Address: [address] [place] [address] Performed By: #### L [id number] #### [facility] CLIA [id number] [address] [place] [address] INTERPRETATION No serological evidence of celiac disease, however, if celiac disease is clinically suspected and patient is not on gluten-free diet, histological diagnosis may be considered. HLA testing may help with risk assessment. Normal [facility] Comment on above: Order Comment: Kraig sandoval Type: BLOOD SPECIMEN Ordering Facility: [facility] Address: [address] [place] [address] Performed By: #### L [id number] #### [facility] CLIA [id number] [address] [place] [address] TRANSGLUTAMINASE IGA ABS INTERPRETATION Negative Normal Negative [facility] Comment on above: Order Comment: Kraig sandoval Type: BLOOD SPECIMEN Ordering Facility: [facility] Address: [address] [place] [address] Result Comment: The following results were obtained with Inova QUANTA Lite R h-tTG IgA ANGELA.???R h-tTG IgA values obtained with different manufacturers' assay methods may not be used interchangeably. The magnitude of the reported IgA levels cannot be corelated to an endpoint???concentration. This is used as an aid in diagnosis of celiac disease. Clinical correlation is required. Performed By: #### L [id number] #### [facility] CLIA [id number] [address] [place] [address] OF [place] tTG IgA Qn (S) <2 Normal <4 [facility] Comment on above: Order Comment: Speci men Type: BLOOD SPECIMEN Ordering Facility: [facility] Address: [address] [place] [address] [place] [address] Performed By: #### L [id number] #### [facility] CLIA [id number] [address] [place] [address] CNOVon 03-23-2024 CNOV Office Visit (NENMMN ) EDNA SULTANA ([id number]) 1965 F Date Time Provider Department 03/23/24 3:00 PM JANNA GILMAN [facility] During your visit today, we [...] which included preparing to see the patient, [id number] patient care, completing clinical documentation, obtaining and/or reviewing separately obtained history, performing a medically appropriate examination, counseling and educating the patient/family/caregiv er, and ordering medications, tests, or procedures. Janna Gilman MD cc: Abiodun Castano [phone] [phone] Edna Tuckerright [phone] [address] [facility] [address] Referring Provider: ABIODUN CASTANO [[id number]] Allergies As of Date: 03/23/2024 Noted Allergy Reaction ADHESIVE 05/20/2006 9 - Itching 2 - Rash 7 - Swelling ADHESIVE TAPE-SILICONES 09/06/2020 2 - Rash 4 - Hives FLUOROURACIL-ADHESIVE BANDAGE 12/16/2018 2 - Rash Date Reviewed: 03/23/2024 Reviewed by: Jaci Burton OCCA - (more content not included)... Normal [facility] COPPER BLOODon 03-23-2024 Copper [Mass/Vol] 99 ug/dL Normal 80-155 [facility] Comment on above: Order Comment: Kraig sandoval Type: BLOOD SPECIMEN Ordering Facility: [facility] Address: [address] [place] [address] Result Comment: This test was developed, and its performance characteristics determined by the [facility] Department of Pathology and Laboratory Medicine. It has not been cleared or approved by the FDA. The [facility] Department of Pathology and Laboratory Medicine is regulated under CLIA as qualified to perform high-complexity testing. This test is used for clinical purposes. It should not be regarded as investigational or for research. Performed By: #### C LAXMI, 5763-8 #### [facility] CLIA [id number] [address] [place], [place] [address] [address] [place] Ceruloplasmin SerPl-mCncon 0 03-23-2024 Ceruloplasmin [Mass/Vol] 26 mg/dL Normal 16-45 [facility] Comment on above: Order Comment: Kraig sandoval Type: BLOOD SPECIMEN Ordering Facility: [facility] Address: [address] [place] [address] Performed By: #### 2 064-4 #### [facility] CLIA [id number] [address] [place] [address] [place] IMMUNOFIXATION SCREEN, SERUM on 03-23-2024 MPA RESULT No M protein is identified. Normal No M protein is identified. [facility] Comment on above: Order Comment: Speci men Type: BLOOD SPECIMEN Ordering Facility: [facility] Address: [address] [place] [address] Performed By: #### I FESC #### [facility] CLIA [id number] [address] [place] [address] [place] STAFF REVIEW (MPA) Reviewed by Dr. Ania Melo MD [facility] Comment on above: Order Comment: Speci men Type: BLOOD SPECIMEN Ordering Facility: [facility] Address: [address] [place] [address] Performed By: #### I FES #### [facility] CLIA [id number] [address] [place] [address] [place] IgA SerPl-mCncon 03-23-2024 IgA [Mass/Vol] 242 mg/dL Normal 70-400 [facility] Comment on above: Order Comment: Speci men Type: BLOOD SPECIMEN Ordering Facility: [facility] Address: [address] [place] [address] Performed By: #### 2 458-8 #### [facility] CLIA [id number] [address] [place] [address] [place] IgA [Mass/volume] in Serum o r Plasmaon 03-23-2024 IgA [Mass/Vol] 242 mg/dL 70-400 [facility] Immunoglobulin light chains. kappa.free [Mass/volume] in Serumon 03-23-2024 Immunoglobulin light chains.kappa.free (S) [Mass/Vol] 10.8 mg/L 3.3-19.4 [facility] Comment on above: Rarely, increased se rum free light chains levels may not be detected or accurately quantified due to prozone phenomenon or in high viscosity samples using this immunoturbidimetric assay. Correlation with other laboratory results and clinical findings is recommended. The [place] Free Light Chain was performed using the Binding Site Optilite immunoturbidimetric method. Result obtained with different assay methods or kits cannot be used interchangeably. Immunoglobulin light chains. kappa.free/Immunoglobulin light chains.lambda.free [Sharon 03-23-2024 Immunoglobulin light chains.kappa.free/Imm unoglobulin light chains.lambda.free (S) [Mass ratio] 1.30 0.26-1.65 [facility] Immunoglobulin light chains. lambda.free [Mass/volume] in Serum or Plasmaon 03-23-2024 Immunoglobulin light chains.lambda.free [Mass/Vol] 8.3 mg/L 5.7-26.3 [facility] Comment on above: Rarely, increased [...] chains.kappa.free (S) [Mass/Vol] 10.8 mg/L Normal 3.3-19.4 [facility] Comment on above: Order Comment: Speci men Type: BLOOD SPECIMEN Ordering Facility: [facility] Address: [address] [place] [address] Result Comment: Rare ly, increased serum free light chains levels may not be detected or accurately quantified due to prozone phenomenon or in high viscosity samples using this immunoturbidimetric assay. Correlation with other laboratory results and clinical findings is recommended. The [place] Free Light Chain was performed using the Binding Site Optilite immunoturbidimetric method. Result obtained with different assay methods or kits cannot be used interchangeably. Performed By: #### K LFRS #### [facility] CLIA [id number] [address] [place] [address] [place] Immunoglobulin light chains.kappa/Immunogl obulin light chains.lambda (S) [Mass ratio] 1.30 Normal 0.26-1.65 [facility] Comment on above: Order Comment: Speci men Type: BLOOD SPECIMEN Ordering Facility: [facility] Address: [address] [place] [address] Performed By: #### K LFRS #### [facility] CLIA [id number] [address] [place] [address] [place] Immunoglobulin light chains.lambda.free [Mass/Vol] 8.3 mg/L Normal 5.7-26.3 [facility] Comment on above: Order Comment: Speci men Type: BLOOD SPECIMEN Ordering Facility: [facility] Address: [address] [place] [address] Result Comment: Rare ly, increased serum free [...] interchangeably. Performed By: #### K LFRS #### [facility] CLIA [id number] [address] [place] [address] [place] No Panel Informationon 03-23 Gliadin (Deamidated) IgA Ab Interp Negative Negative, Test not Indicated [facility] Comment on above: This is used [...] to an endpoint titer. Miscellaneous Test Comment [facility] Tissue Transglutaminase IgA Interp Negative Negative [facility] Comment on above: The following [...] zinc measurementon Zinc [Mass/Vol] 72 ug/dL 60-120 [facility] Comment on above: This test was develo ped, and its performance characteristics determined by the [facility] Department of Pathology and Laboratory Medicine. It has not been cleared or approved by the FDA. The [facility] Department of Pathology and Laboratory Medicine is regulated under CLIA as qualified to perform high-complexity testing. This test is used for clinical purposes. It should not be regarded as investigational or for research. Serum gliadin peptide IgA an tibody assay (units/volume)on 03-23-2024 Gliadin peptide IgA Qn (S) 4 Units <20 [facility] Serum or plasma ceruloplasmi n measurement (mass/volume)on 03-23-2024 Ceruloplasmin [Mass/Vol] 26 mg/dL 16-45 [facility] Serum tissue transglutaminas e (tTG) IgA antibody assay (units/volume)on 03-23-2024 tTG IgA Qn (S) <2 U/mL <4 [facility] Zinc SerPl-mCncon 03-23-2024 Zinc [Mass/Vol] 72 ug/dL Normal 60-120 [facility] Comment on above: Order Comment: Speci men Type: BLOOD SPECIMEN Ordering Facility: [facility] Address: [address] [place] [address] Result Comment: This test was developed, and its performance characteristics determined by the [facility] Department of Pathology and Laboratory Medicine. It has not been cleared or approved by the FDA. The [facility] Department of Pathology and Laboratory Medicine is regulated under CLIA as qualified to perform high-complexity testing. This test is used for clinical purposes. It should not be regarded as investigational or for research. 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 Heel Padder: PSCB Transcribe Date/Time: Dec 09 2023 11:06A Dictated by : MARY COWART MD This examination was interpreted and the report reviewed and electronically signed by: MARY COWART MD on Dec 09 2023 11:11AM [facility] DIVISION OF RADIOLOGY * * *Final [...] DIVISION OF RADIOLOGY Provider, [facility] - 12/09/2023 * * *Final Report* * [...] toxic/metabolic insult is also within the differential. [facility] Transcribe Date/Time: Dec 09 2023 11:06A Dictated by : MARY COWART MD This examination was interpreted and the report reviewed and electronically signed by: MARY COWART MD on Dec 09 2023 11:11AM EST [facility] MR Brain WO and W contrast I VOrdered By: Ccf Provider on 12-09-2023 [facility] MR Cervical spine WO and W c [...] vertebrae with counting from the craniocervical junction. Heel Padder: [facility] Transcribe Date/Time: Dec 09 2023 11:12A Dictated by : MARY COWART MD This examination was interpreted and the report reviewed and electronically signed by: MARY COWART MD on Dec 09 2023 11:20AM [facility] DIVISION OF RADIOLOGY * * *Final Report* * * DATE OF EXAM: Dec 09 2023 11:06AM [facility] 0298 - MRI CERVICAL SPINE WO/W IVCON [...] or foraminal stenosis. DIVISION OF RADIOLOGY Provider, [facility] - 12/09/2023 * * *Final Report* * [...] vertebrae with counting from the craniocervical junction. Heel Padder: MICHAEL Transcribe Date/Time: Dec 09 2023 11:12A Dictated by : MARY COWART MD This examination was interpreted and the report reviewed and electronically signed by: MARY COWART MD on Dec 09 2023 11:20AM EST [facility] MR Cervical spine WO and Melias tran ontrast IVOrdered By: Ccf Provider on 12-09-2023 [facility] MR Thoracic spine WO and Melisa tran ontrast David 12-09-2023 IMPRESSION: No evidence of demyelinating disease within the thoracic spine. No substantial canal stenosis or cord signal abnormality. For the purposes of this report, L4-5 is considered the level of the iliac crest and there are 5 lumbar-type vertebrae. Anatomic variant: Assume 11 thoracic, rib bearing vertebrae to accommodate counting discrepancies from the craniocervical and lumbosacral junctions. Heel Padder: MICHAEL Transcribe Date/Time: Dec 09 2023 11:20A Dictated by : MARY COWART MD This examination was interpreted and the report reviewed and electronically signed by: MARY COWART MD on Dec 09 2023 11:23AM [facility] DIVISION OF RADIOLOGY * * *Final Report* * * DATE OF EXAM: Dec 09 2023 11:06AM [facility] 0326 - MRI THORACIC SPINE WO/W IVCON [...] or foraminal stenosis. DIVISION OF RADIOLOGY Provider, [facility] - 12/09/2023 * * *Final Report* * * DATE OF EXAM: Dec 09 2023 11:06AM [facility] 0326 - MRI THORACIC SPINE WO/W IVCON [...] discrepancies from the craniocervical and lumbosacral junctions. Heel Padder: MICHAEL Transcribe Date/Time: Dec 09 2023 11:20A Dictated by : MARY COWART MD This examination was interpreted and the report reviewed and electronically signed by: MARY COWART MD on Dec 09 2023 11:23AM EST [facility] Radiology Study observation (narrative) [facility] MR Thoracic spine WO and W c ontrast IVOrdered By: Ccf Provider on 12-09-2023 [facility] No Panel Informationon 12-08 Radiology Study observation (narrative) [facility] Automated epithelial cells c ount in urine sediment (number/area)on 10-25-2023 Epithelial cells Auto (Urine sed) [#/Area] NONE SEEN #/LPF NONE/RARE [facility] Automated leukocytes count i n urine sediment (number/area)on 10-25-2023 WBC Auto (Urine sed) [#/Area] 5-10 #/HPF 0-2 [facility] Automated urine specific gra vity by refractometryon 10-25-2023 Specific gravity Refractometry automated (U) [Rel density] 1.025 1.005-1.025 [facility] Bilirubin Auto test strip (U ) [Mass/Vol]on 10-25-2023 Bilirubin (U) [Mass/Vol] COLOR INTERFERENCE NEGATIVE [facility] Casts typing in urine sedime nt by light microscopyon 10-25-2023 Casts LM Nom (Urine sed) NONE SEEN #/LPF NONE SEEN [facility] Color Auto (U)on 10-25-2023 Color (U) ORANGE YELLOW [facility] Ketones Auto test strip (U) [Mass/Vol]on 10-25-2023 Ketones (U) [Mass/Vol] COLOR INTERFERENCE mg/dL NEGATIVE [facility] Mucus LM Ql (Urine sed)on Mucus Ql (Urine sed) NONE SEEN NONE SEEN [facility] Protein Auto test strip (U) [Mass/Vol]on 10-25-2023 Protein (U) [Mass/Vol] COLOR INTERFERENCE mg/dL NEG/TRACE [facility] Specific gravity Auto test s trip (U) [Rel density]on 10-25-2023 Specific gravity (U) [Rel density] CLEAR CLEAR [facility] Urine bacteria detection by automated methodon 10-25-2023 Bacteria Auto Ql (U) TRACE #/HPF NONE SEEN [facility] Urine glucose measurement by test strip (mass/volume)on 10-25-2023 Glucose Test strip (U) [Mass/Vol] COLOR INTERFERENCE mg/dL NEGATIVE [facility] Urine hemoglobin detection b y automated test stripon 10-25-2023 Hemoglobin Auto test strip Ql (U) COLOR INTERFERENCE NEGATIVE [facility] Urine nitrite detection by a utomated test stripon 10-25-2023 Nitrite Auto test strip Ql (U) COLOR INTERFERENCE NEGATIVE [facility] Urine sediment crystal ident ification by light microscopyon 10-25-2023 Crystals LM Nom (Urine sed) None Seen #/HPF None Seen [facility] Urine sediment leukocyte cou nt by microscopy (number/high power field)on 10-25-2023 WBC LM.HPF (Urine sed) [#/Area] 0-2 #/HPF NONE SEEN [facility] Urobilinogen Auto test strip (U) [Mass/Vol]on 10-25-2023 Urobilinogen (U) [Mass/Vol] COLOR INTERFERENCE EU/dL 0.2-1.0 [facility] pH Auto test strip (U)on pH (U) COLOR INTERFERENCE 5.0-9.0 [facility] - Chemistry and C hemistry - challengeon 10-07-2023 Cobalamin (Vitamin B12) [Mass/Vol] 913 pg/mL [facility] Ferritin [Mass/Vol] 87 ng/mL [facility] Neurosurgery Office/Clinic N oteon 05-27-2023 Neurosurgery Office/Clinic Note Chief Complaint Back follow up-MRI @ [facility] 03/29 Physical Exam Vitals & Measurements [...] attempted healthier diet from her previously standard [place] diet and noted significant improvement in sense [...] prompted her to visit a neurosurgeon at [facility]. An MRI was ordered and no surgical [...] (more content not included)... Normal [facility] Urinalysis - AUTOMATEDon Appearance (U) clear [employer] Other Bilirubin Ql (U) Negative [employer] Other Color (U) light yellow [employer] Other Glucose Ql (U) Negative [employer] Other Hemoglobin Ql (U) trace-intact [employer] Other Ketones Ql (U) Negative [employer] Other Leukocyte esterase Test strip Ql (U) Negative [employer] Other Nitrite Ql (U) Negative [employer] Other pH (U) 7.5 [pH] [employer] Other Protein Ql (U) Negative [employer] Other Specific gravity (U) [Rel density] 1.015 [employer] Other Urobilinogen (U) [Mass/Vol] 0.2 mg/dL [employer] Other Urinalysis - AUTOMATED [employer] Other MR lumbar spine wo conon MR lumbar spine wo con [facility] [employer] Other MR lumbar spine wo con [facility] [employer] Other MR lumbar spine wo con [address] [place] [address] [employer] [place] [address] [employer] Other MR lumbar spine wo con XRay Report [employer] Other MR lumbar spine wo con Signed [employer] Other MR lumbar spine wo con Patient: Edna Sultana MR#: [id number] [employer] Other MR lumbar spine wo con 2916 [employer] Other MR lumbar spine wo con : 1965 Acct:[id number] [employer] Other MR lumbar spine wo con Age/Sex: 56 / F ADM Date: 08/28/22 [employer] Other MR lumbar spine wo con Loc: MR Room: Type: [facility] [employer] Other MR lumbar spine wo con Attending Dr: Yannick Velázquez DO [employer] Other MR lumbar spine wo con Copies to: Yannick Velázquez, [employer] Other MR lumbar spine wo con Ordering Provider: Yannick Velázquez DO [employer] Other MR lumbar spine wo con Date of Service: 08/28/22 [employer] Other MR lumbar spine wo con MR/MR lumbar spine wo con: M54.50 M48.0 M51.35 [employer] Other MR lumbar spine wo con ([id number]) XR/XR pre/post mri xray: PRE MRI OF THE LUMBAR [employer] Other MR lumbar spine wo con CLINICAL DATA: Chronic back pain with bilateral toe numbness. No injury. [employer] Other MR lumbar spine wo con PRE-MRI LUMBAR SPINE - 2 views [employer] Other MR lumbar spine wo con COMPARISON: 05/11/2020 [employer] Other MR lumbar spine wo con Standing AP and lateral views were obtained. 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 [employer] Other MR lumbar spine wo con There are no developing fractures. There is still slight retrolisthesis of L2 on L3, L3 on L4 and [employer] Other MR lumbar spine wo con L4 and L5. There is mild disc space narrowing and anterior endplate sclerosis at L2-3. There is [employer] Other MR lumbar spine wo con also some disc space narrowing at L3-4. Mild endplate spurring is seen. There is mid and lower [employer] Other MR lumbar spine wo con lumbar facet hypertrophy. The SI joints are intact. No paraspinal soft tissue abnormalities are [employer] Other MR lumbar spine wo con present. [employer] Other MR lumbar spine wo con XR/XR pre/post mri xray [employer] Other MR lumbar spine wo con IMPRESSION: [employer] Other MR lumbar spine wo con SCOLIOSIS AND DEGENERATIVE CHANGES, SIMILAR TO THE PRIOR. [employer] Other MR lumbar spine wo con MRI LUMBAR SPINE WITHOUT CONTRAST [employer] Other MR lumbar spine wo con Multiecho imaging in the axial and sagittal plane was performed without contrast. [employer] Other MR lumbar spine wo con There is levoscoliotic curvature. There is minimal retrolisthesis of L2 on L3, L3 on L4 and L4 and [employer] Other MR lumbar spine wo con L5. There are no acute compression fractures or marrow edema. There are degenerative endplate [employer] Other MR lumbar spine wo con signal changes, predominantly at L2-3 anteriorly. The conus medullaris terminates at T12-L1. The [employer] Other MR lumbar spine wo con lower imaged cord shows no significant findings. 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 No paraspinal soft tissue abnormalities are noted. [employer] Other MR lumbar spine wo con At T12-L1, there is no disc disease or stenosis. [employer] Other MR lumbar spine wo con At L1-2, there is slight disco-osteophytic bulging with mild thecal sac effacement. There is [employer] Other MR lumbar spine wo con asymmetric facet disease on the left. There is no significant foraminal stenosis. [employer] Other MR lumbar spine wo con At L2-3, there is prominent narrowing of the disc space. Disco-osteophytic bulging is noted. There [employer] Other MR lumbar spine wo con is increased signal at the annulus that may be a tear. There is bilateral facet hypertrophy with [employer] Other MR lumbar spine wo con joint effusion on the left. There is slight thickening of ligamentum flavum. There is continued [employer] Other MR lumbar spine wo con moderate thecal sac effacement. There is mild inferior foraminal encroachment. [employer] Other MR lumbar spine wo con At L3-4, there is narrowing of the disc space. Disco-osteophytic bulging is present. There is [employer] Other MR lumbar spine wo con bilateral facet disease and mild thickening of ligamentum flavum. There is mild to moderate thecal [employer] Other MR lumbar spine wo con sac effacement. There is mild to moderate right and moderate left foraminal impingement. [employer] Other MR lumbar spine wo con At L4-5, there is slight loss of disc height. Annular disc bulging is noted, slightly asymmetric [employer] Other MR lumbar spine wo con from the right parasagittal region extending laterally. There is increased signal at the annulus [employer] Other MR lumbar spine wo con that could be tear. There is bilateral facet hypertrophy and thickening of ligamentum flavum, [employer] Other MR lumbar spine wo con asymmetric on the left. Moderate central stenosis is again seen. There is moderate narrowing of [employer] Other MR lumbar spine wo con the neural foramen bilaterally. [employer] Other MR lumbar spine wo con At the lumbosacral junction, mild annular disc bulging is visualized. There is increased signal at [employer] Other MR lumbar spine wo con the annulus that could be tear. There is bilateral facet disease, greater on the left. There is [employer] Other MR lumbar spine wo con subtle thecal sac effacement. There is moderate neural foraminal narrowing, greater on the left. [employer] Other MR lumbar spine wo con LEVOSCOLIOSIS. 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 SIMILAR FINDINGS WERE PRESENT AT THE TIME OF THE COMPARISON. [employer] Other MR lumbar spine wo con Impression dictated by: Poppy Ashley M.D.08/28/2022 8:35 PM [employer] Other MR lumbar spine wo con Dictation Location: [place] [address] [employer] Other MR lumbar spine wo con Transcribed By: RODERICK 08/28/222034 [employer] Other MR lumbar spine wo con Dictated By: Poppy Ashley MD 08/28/222016 [employer] Other MR lumbar spine wo con Signed By: [employer] Other MR lumbar spine wo con 08/28/222034 [employer] Other XR ABD FLAT_UPon 07-04-2022 XR ABD FLAT_UP EXAMINATION: XR ABD FLAT_UP HISTORY: Slow transit constipation COMPARISON: No relevant comparison available. FINDINGS: BOWEL GAS PATTERN: Non-obstructed. FREE AIR: None. CALCIFICATIONS: None significant. 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 IMPRESSION: Nonobstructive bowel gas pattern with normal amount of stool Electronically authenticated by: YANNICK REA Date: 2022-07-04 07:30 Normal [facility] CULTURE URINEon 07-03-2022 CULTURE URINE Culture Observations : NO GROWTH. Normal [facility] Comment on above: Performed By: #### U RCX #### [facility] [address] [place] [address] Dr. Rene De Jesus UA RANDOMon 07-03-2022 Bilirubin Ql (U) Negative Normal NEGATIVE [facility] Comment on above: Performed By: #### U A #### [facility] [address] [place] [address] Dr. Rene De Jesus Clarity (U) CLEAR Normal CLEAR [facility] Comment on above: Performed By: #### U A #### [facility] [address] [place] [address] Dr. Rene De Jesus Color (U) LT. YELLOW Normal YELLOW [facility] Comment on above: Performed By: #### U A #### [facility] [address] [place] [address] Dr. Rene De Jesus Glucose Ql (U) Negative Normal NEGATIVE [facility] Comment on above: Performed By: #### U A #### [facility] [address] [place] [address] Dr. Rene De Jesus Hemoglobin Ql (U) Negative Normal NEGATIVE [facility] Comment on above: Performed By: #### U A #### [facility] [address] [place] [address] Dr. Rene De Jesus Ketones Ql (U) Negative Normal NEGATIVE [facility] Comment on above: Performed By: #### U A #### [facility] [address] [place] [address] Dr. Rene De Jessu LEUKOCYTES Negative Normal NEGATIVE [facility] Comment on above: Performed By: #### U A #### [facility] [address] [place] [address] Dr. Rene De Jesus Nitrite Ql (U) Negative Normal NEGATIVE [facility] Comment on above: Performed By: #### U A #### [facility] [address] [place] [address] Dr. Rene De Jesus pH (U) 8.0 [pH] Normal 5-9 [facility] Comment on above: Performed By: #### U A #### [facility] [address] [place] [address] Dr. Rene De Jesus SPEC GRAVITY 1.010 Normal 1.005-<=1.02 5 [facility] Comment on above: Performed By: #### U A #### [facility] [address] [place] [address] Dr. Rene De Jesus UA PROTEIN Negative Normal NEGATIVE/ TRACE [facility] Comment on above: Performed By: #### U A #### [facility] [address] [place] [address] Dr. Rene De Jesus Urobilinogen Qn (U) 0.2 {Raman'U}/dL Normal 0.2 - 1. 0 [facility] Comment on above: Performed By: #### U A #### [facility] [address] [place] [address] Dr. Rene De Jesus CBC AUTO DIFFon 03-20-2022 BASO # 0.0 103/ul Normal 0.0-0.1 [facility] Comment on above: Performed By: #### C BC #### [facility] [address] [place] [address] Dr. Rene De Jesus Basophils/100 WBC (Bld) 0.8 % Normal 0.2-2.0 [facility] Comment on above: Performed By: #### C BC #### [facility] [address] [place] [address] Dr. Rene De Jesus EO # 0.1 103/ul Normal 0.0-0.7 [facility] Comment on above: Performed By: #### C BC #### [facility] [address] [place] [address] Dr. Rene De Jesus Eosinophils/100 WBC (Bld) 1.3 % Normal 0.9-7.0 [facility] Comment on above: Performed By: #### C BC #### [facility] [address] [place] [address] Dr. Rene De Jesus Erythrocyte distribution width (RBC) [Ratio] 13.1 % Normal 11.0-15.0 [facility] Comment on above: Performed By: #### C BC #### [facility] [address] [place] [address] Dr. Rene De Jesus Hematocrit (Bld) [Volume fraction] 40.9 % Normal 36.0-48.0 [facility] Comment on above: Performed By: #### C BC #### [facility] [address] [place] [address] Dr. Rene De Jesus Hemoglobin (Bld) [Mass/Vol] 13.2 g/dL Normal 12.0-16.0 [facility] Comment on above: Performed By: #### C BC #### [facility] [address] [place] [address] Dr. Rene De Jesus IG # 0.01 10e3/ul Normal 0.00-0.03 [facility] Comment on above: Performed By: #### C BC #### [facility] [address] [place] [address] Dr. Rene De Jesus IG % 0.2 % Normal 0.0-0.5 [facility] Comment on above: Performed By: #### C BC #### [facility] [address] [place] [address] Dr. Rene De Jesus LYMPH # 2.4 103/ul Normal 1.2-3.8 [facility] Comment on above: Performed By: #### C BC #### [facility] [address] [place] [address] Dr. Rene De Jesus Lymphocytes/100 WBC (Bld) 44.5 % Normal 20.5-60.0 [facility] Comment on above: Performed By: #### C BC #### [facility] [address] [place] [address] Dr. Rene De Jesus MANUAL DIFF REQ NO Normal [facility] Comment on above: Performed By: #### C BC #### [facility] [address] [place] [address] Dr. Rene De Jesus MCH (RBC) [Entitic mass] 29.2 pg Normal 26.7-34.0 [facility] Comment on above: Performed By: #### C BC #### [facility] [address] [place] [address] Dr. Rene De Jesus MCHC (RBC) [Mass/Vol] 32.3 g/dL Normal 29.9-35.2 [facility] Comment on above: Performed By: #### C BC #### [facility] [address] [place] [address] Dr. Rene De Jesus MCV (RBC) [Entitic vol] 90.5 fL Normal 81.0-99.0 [facility] Comment on above: Performed By: #### C BC #### [facility] [address] [place] [address] Dr. Rene De Jesus MONO # 0.6 103/ul Normal 0.3-0.8 [facility] Comment on above: Performed By: #### C BC #### [facility] [address] [place] [address] Dr. Rene De Jesus Monocytes/100 WBC (Bld) 12.1 % Critically high 1.7-12.0 [facility] Comment on above: Performed By: #### C BC #### [facility] [address] [place] [address] Dr. Rene De Jesus NEUT # 2.2 103/ul Normal 1.4-6.5 [facility] Comment on above: Performed By: #### C BC #### [facility] [address] [place] [address] Dr. Rene De Jesus Neutrophils/100 WBC (Bld) 41.1 % Critically low 43.0-75.0 [facility] Comment on above: Performed By: #### C BC #### [facility] [address] [place] [address] Dr. Rene De Jesus Platelet mean volume (Bld) [Entitic vol] 10.5 fL Normal 9.5-13.5 [facility] Comment on above: Performed By: #### C BC #### [facility] [address] [place] [address] Dr. Rene De Jesus PLT 263 103/ul Normal 150-450 [facility] Comment on above: Performed By: #### C BC #### [facility] [address] [place] [address] Dr. Rene De Jesus RBC 4.52 106/ul Normal 4.20-5.40 [facility] Comment on above: Performed By: #### C BC #### [facility] [address] [place] [address] Dr. Rene De Jesus WBC 5.3 103/ul Normal 4.0-11.0 [facility] Comment on above: Performed By: #### C BC #### [facility] [address] [place] [address] Dr. Rene De Jesus PROF 14(COMP METB)on 022 Albumin [Mass/Vol] 3.9 g/dL Normal 3.4-5.0 [facility] Comment on above: Performed By: #### T SH, CMP #### [facility] [address] [place] [address] Dr. Rene De Jesus Albumin/Globulin [Mass ratio] 1.2 {ratio} Normal [facility] Comment on above: Performed By: #### T SH, CMP #### [facility] [address] [place] [address] Dr. Rene De Jesus ALP [Catalytic activity/Vol] 71 U/L Normal 46-116 [facility] Comment on above: Performed By: #### T SH, CMP #### [facility] [address] [place] [address] Dr. Rene De Jesus ALT [Catalytic activity/Vol] 21 U/L Normal 14-59 [facility] Comment on above: Performed By: #### T ZEN, CMP #### [facility] [address] [place] [address] Dr. Rene De Jesus Anion gap [Moles/Vol] 11.3 mmol/L Normal [facility] Comment on above: Performed By: #### T ZEN, CMP #### [facility] [address] [place] [address] Dr. Rene De Jesus AST [Catalytic activity/Vol] 15 U/L Normal 15-37 [facility] Comment on above: Performed By: #### T SH, CMP #### [facility] [address] [place] [address] Dr. Rene De Jesus Bilirubin [Mass/Vol] 0.3 mg/dL Normal 0.2-1.0 [facility] Comment on above: Performed By: #### T ZEN, CMP #### [facility] [address] [place] [address] Dr. Rene De Jesus Calcium [Mass/Vol] 8.9 mg/dL Normal 8.5-10.1 [facility] Comment on above: Performed By: #### T ZEN, CMP #### [facility] [address] [place] [address] Dr. Rene De Jesus Chloride [Moles/Vol] 102 mmol/L Normal 98-107 [facility] Comment on above: Performed By: #### T ZEN, CMP #### [facility] [address] [place] [address] Dr. Rene De Jesus CO2 [Moles/Vol] 30.7 mmol/L Normal 21.0-32.0 [facility] Comment on above: Performed By: #### T ZEN, CMP #### [facility] [address] [place] [address] Dr. Rene De Jesus Creatinine [Mass/Vol] 0.69 mg/dL Normal 0.55-1.02 [facility] Comment on above: Performed By: #### T ZEN, CMP #### [facility] [address] [place] [address] Dr. Rene De Jesus EGFR-AF CANADIAN >60 Normal >=60 [facility] Comment on above: Performed By: #### T ZEN, CMP #### [facility] [address] [place] [address] Dr. Rene De Jesus EGFR-NON AF CANADIAN >60 Normal >=60 [facility] Comment on above: Performed By: #### T ZEN, CMP #### [facility] [address] [place] [address] [address] Rene De Jesus Globulin (S) [Mass/Vol] 3.3 g/dL Normal [facility] Comment on above: Performed By: #### T ZEN, CMP #### [facility] [address] [place] [address] [address] Rene De Jesus Glucose [Mass/Vol] 96 mg/dL Normal 74-106 [facility] Comment on above: Performed By: #### T ZEN, CMP #### [facility] [address] [place] [address] Dr. Rene De Jesus Potassium [Moles/Vol] 4.0 mmol/L Normal 3.5-5.1 [facility] Comment on above: Performed By: #### T ZEN, CMP #### [facility] [address] [place] [address] Dr. Rene De Jesus Protein [Mass/Vol] 7.2 g/dL Normal 6.4-8.2 [facility] Comment on above: Performed By: #### T ZEN, CMP #### [facility] [address] [place] [address] Dr. Rene De Jesus Sodium [Moles/Vol] 140 mmol/L Normal 136-145 [facility] Comment on above: Performed By: #### T ZEN, CMP #### [facility] [address] [place] [address] Dr. Rene De Jesus Urea nitrogen [Mass/Vol] 18.0 mg/dL Normal 7.0-18.0 [facility] Comment on above: Performed By: #### T ZEN, CMP #### [facility] [address] [place] [address] Dr. Rene De Jesus Urea nitrogen/Creatinine [Mass ratio] 26.1 mg/mg Normal [facility] Comment on above: Performed By: #### T ZEN, CMP #### [facility] [address] [place] [address] Dr. Rene De Jesus TSHon 03-20-2022 TSH 2.033 uIU/mL Normal 0.358-3.740 [facility] Comment on above: Performed By: #### T , [facility] #### [facility] [address] [place] [address] [address] Rene De Jesus XR foot RT min 3V*on 022 XR foot RT min 3V* [facility] [employer] Other XR foot RT min 3V* [facility] [employer] Other XR foot RT min 3V* [address] [place] [address] [employer] Other XR foot RT min 3V* [place] [address] [employer] Other XR foot RT min 3V* XRay Report [employer] Other XR foot RT min 3V* Signed [employer] Other XR foot RT min 3V* Patient: Edna Sultana MR#: [id number] [employer] Other XR foot RT min 3V* 2916 [employer] Other XR foot RT min 3V* : 1965 Acct:[id number] [employer] Other XR foot RT min 3V* Age/Sex: 56 / F ADM Date: 01/28/22 [employer] Other XR foot RT min 3V* Loc: XDUCLY Room: Type: REG CLI [employer] Other XR foot RT min 3V* Attending Dr: Shara Cutler 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 Other XR foot RT min 3V* Copies to: SHARA CUTLER 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 Other XR foot RT min 3V* Ordering Provider: SHARA CUTLER [employer] Other XR foot RT min 3V* Date of Service: 01/28/22 [employer] Other XR foot RT min 3V* XR/XR foot RT min 3V*: Injury of right foot, initial encounter [employer] Other XR foot RT min 3V* 3 viewsRIGHT foot plain film [employer] Other XR foot RT min 3V* COMPARISON:None [facility] [employer] Other XR foot RT min 3V* HISTORY:RIGHT foot injury. [employer] Other XR foot RT min 3V* No acute fracture, dislocation or focal soft tissue abnormality seen. Chronic deformity of the 5th [employer] Other XR foot RT min 3V* metatarsal identified. [employer] Other XR foot RT min 3V* XR/XR foot RT min 3V* [employer] Other XR foot RT min 3V* IMPRESSION:No acute findings [employer] Other XR foot RT min 3V* Impression dictated by: Lukas Nicole M.D.01/28/2022 3:27 PM [employer] Other XR foot RT min 3V* Dictation Location: [place] [address] [employer] Other XR foot RT min 3V* Transcribed By: RODERICK 01/28/22 [facility] [employer] Other XR foot RT min 3V* Dictated By: Lukas Nicole DO 01/28/22 [facility] [employer] Other XR foot RT min 3V* Signed By: [employer] Other XR foot RT min 3V* 01/28/22 [address] [employer] [address] ABD/PELVIS WO CONon 08-01 CT [...] as clinically indicated. Electronically authenticated by: MARGO SAID Date: 2021-08-01 02:33 Normal [facility] ER URINE PROFILEon 2 Bilirubin Ql (U) Negative Normal NEGATIVE [facility] Comment on above: Performed By: #### E RUR #### [facility] [address] [place] [address] Dr. Rene De Jesus Clarity (U) CLEAR Normal CLEAR [facility] Comment on above: Performed By: #### E RUR #### [facility] [address] [place] [address] [address] [address] Rene De Jesus Color (U) YELLOW Normal YELLOW [facility] Comment on above: Performed By: #### E RUR #### [facility] [address] [place] [address] Dr. Rene De Jesus ERUAHD A micrscopic examination will be performed if indicated. Normal [facility] Comment on above: Performed By: #### E RUR #### [facility] [address] [place] [address] Dr. Rene De Jesus Glucose Ql (U) Negative Normal NEGATIVE [facility] Comment on above: Performed By: #### E RUR #### [facility] [address] [place] [address] Dr. Rene De Jesus Hemoglobin Ql (U) Negative Normal NEGATIVE [facility] Comment on above: Performed By: #### E RUR #### [facility] [address] [place] [id number] Dr. Rene De Jesus Ketones Ql (U) Negative Normal NEGATIVE [facility] Comment on above: Performed By: #### E RUR #### [facility] [address] [place] [address] Dr. Rene De Jesus LEUKOCYTES Negative Normal NEGATIVE [facility] Comment on above: Performed By: #### E RUR #### [facility] [address] [place] [address] Dr. Rene De Jesus Nitrite Ql (U) Negative Normal NEGATIVE [facility] Comment on above: Performed By: #### E RUR #### [facility] [address] [place] [address] Dr. Rene De Jesus pH (U) 7.5 [pH] Normal 5-9 [facility] Comment on above: Performed By: #### E RUR #### [facility] [address] [place] [address] Dr. Rene De Jesus SPEC GRAVITY 1.015 Normal 1.005-<=1.02 5 [facility] Comment on above: Performed By: #### E RUR #### [facility] [address] [place] [address] Dr. Rene De Jesus UA PROTEIN Negative Normal NEGATIVE/ TRACE [facility] Comment on above: Performed By: #### E RUR #### [facility] [address] [place] [address] Dr. Rene De Jesus UR MICRO IND NOT INDICATED Normal [facility] Comment on above: Performed By: #### E RUR #### [facility] [address] [address] [address] Rene De Jesus Urobilinogen Qn (U) 0.2 {Raman'U}/dL Normal 0.2 - 1. 0 [facility] Comment on above: Performed By: #### E RUR #### [facility] [address] [address] [address] Rene De Jesus Otheron 09-06-2020 BILIRUBIN UA (POCT) Negative Negative [facility] CLARITY UA (POCT) Clear [facility] COLOR UA (POCT) Yellow [facility] GLUCOSE UA (POCT) Negative Negative mg/dL [facility] HEMOGLOBIN/BLOOD UA (POCT) Negative Negative [facility] KETONE UA (POCT) Negative Negative mg/dL [facility] LEUKOCYTES UA (POCT) Negative Negative [facility] NITRITE UA (POCT) Negative Negative [facility] PH UA (POCT) 8.5 Abnormal 4.5 - 8.0 [facility] Protein Ql (U) Negative Negative mg/dL [facility] SPECIFIC GRAVITY UA (POCT) 1.020 1.005 - 1.030 [facility] UROBILINOGEN UA (POCT) 0.2 E.U./dL Normal E.U./dL [facility] ANTI-SSAon 01-19-2019 ANTI-SSA <0.2 Normal [facility] Comment on above: Result Comment: REF VALUES < 1.0 = NEGATIVE >=1.0 = POSITIVE Performed By: #### A -SSA #### [facility] [address] [place] [address] ANTI-SSBon 01-19-2019 ANTI-SSB <0.2 Normal [facility] Comment on above: Result Comment: REF VALUES < 1.0 = NEGATIVE >=1.0 = POSITIVE Performed By: #### A -SSB #### [facility] [address] [place] [address] C-REACTIVE PROTEINon 019 CRP [Mass/Vol] 0.13 mg/dL Normal [facility] [place] Comment on above: Result Comment: REF VALUE < 1.00 Performed By: #### C RP #### [facility] [address] [place] [address] SEDIMENTATION RATE, ERYTHROC YTEon 01-19-2019 SEDIMENTATION RATE, ERYTHROCYTE 3 mm/h Normal 0 - 30 [facility] Comment on above: Performed By: #### E SRWS #### [facility] [address] [place] [address] Vital Signs Date Time Vital Sign Value Performing Clinician Facility 04-06-2025 15:16-0400 Body height 177.16 cm Yannick Velázquez DO Work Phone: [facility] 04-06-2025 15:16-0400 Body mass index (BMI) [Ratio] 20.5 kg/m2 Yannick Velázquez DO Work Phone: [facility] 04-06-2025 15:16-0400 Body temperature 98.3 [degF] Yannick Velázquez DO Work Phone: [facility] 04-06-2025 15:16-0400 Body weight 64.63 kg Yannick Velázquez DO Work Phone: [facility] 04-06-2025 15:16-0400 Diastolic blood pressure 84 mm[Hg] Yannick Velázquez DO Work Phone: [facility] 04-06-2025 15:16-0400 Heart rate 94 /min Yannick Velázquez DO Work Phone: [facility] 04-06-2025 15:16-0400 SaO2% (BldA) [Mass fraction] 97 % Yannick Velázquez DO Work Phone: [facility] 04-06-2025 15:16-0400 Systolic blood pressure 138 mm[Hg] Yannick Velázquez DO Work Phone: [facility] 03-22-2025 08:49-0400 Body height 177.16 cm Yannick Velázquez DO Work Phone: [facility] 03-22-2025 08:49-0400 Body mass index (BMI) [Ratio] 20.7 kg/m2 Yannick Velázquez DO Work Phone: [facility] 03-22-2025 08:49-0400 Body temperature 98.9 [degF] Yannick Velázquez DO Work Phone: [facility] 03-22-2025 08:49-0400 Body weight 65.31 kg Yannick Velázquez DO Work Phone: [facility] 03-22-2025 08:49-0400 Diastolic blood pressure 84 mm[Hg] Yannick Velázquez DO Work Phone: [facility] 03-22-2025 08:49-0400 SaO2% (BldA) [Mass fraction] 97 % Yannick Velázquez DO Work Phone: [facility] 03-22-2025 08:49-0400 Systolic blood pressure 126 mm[Hg] Yannick Velázquez DO Work Phone: [facility] 03-08-2025 12:52-0400 Body mass index (BMI) [Ratio] 20.6 kg/m2 Yannick Harper DO Work Phone: [facility] 03-08-2025 12:52-0400 Body weight 67 kg Yannick Harper DO Work Phone: [facility] 03-08-2025 12:52-0400 Diastolic blood pressure 90 mm[Hg] Yannick Harepr DO Work Phone: [facility] 03-08-2025 12:52-0400 Heart rate 89 /min Yannick Harper DO Work Phone: [facility] 03-08-2025 12:52-0400 SaO2% (BldA) [Mass fraction] 99 % Yannick Harper DO Work Phone: [facility] 03-08-2025 12:52-0400 Systolic blood pressure 167 mm[Hg] Yannick Harper DO Work Phone: [facility] 02-08-2025 12:37-0400 Body height 177.16 cm Yannick Velázquez DO Work Phone: [facility] 02-08-2025 12:37-0400 Body mass index (BMI) [Ratio] 21.2 kg/m2 Yannick Velázquez DO Work Phone: [facility] 02-08-2025 12:37-0400 Body temperature 98.5 [degF] Yannick Velázquez DO Work Phone: [facility] 02-08-2025 12:37-0400 Body weight 66.67 kg Yannick Velázquez DO Work Phone: [facility] 02-08-2025 12:37-0400 Diastolic blood pressure 76 mm[Hg] Yannick Velázquez DO Work Phone: [facility] 02-08-2025 12:37-0400 Heart rate 85 /min Yannick Velázquez DO Work Phone: [facility] 02-08-2025 12:37-0400 SaO2% (BldA) [Mass fraction] 97 % Yannick Velázquez DO Work Phone: [facility] 02-08-2025 12:37-0400 Systolic blood pressure 122 mm[Hg] Yannick Velázquez DO Work Phone: [facility] 01-26-2025 08:11-0400 Body height 177.8 cm Reza Gorman MD Work Phone: [facility] 01-26-2025 08:11-0400 Body mass index (BMI) [Ratio] 20.81 kg/m2 Reza Gorman MD Work Phone: [facility] 01-26-2025 08:11-0400 Body weight 65.77 kg Reza Gorman MD Work Phone: [facility] 01-26-2025 08:11-0400 Diastolic blood pressure 80 mm[Hg] Reza Gorman MD Work Phone: [facility] 01-26-2025 08:11-0400 Heart rate 79 /min Reza Gorman MD Work Phone: [facility] 01-26-2025 08:11-0400 Systolic blood pressure 120 mm[Hg] Reza Gorman MD Work Phone: [facility] 01-03-2025 10:45-0400 Body height 177.16 cm Yannick Oropezakaren DO Work Phone: [facility] 01-03-2025 10:45-0400 Body mass index (BMI) [Ratio] 21.1 kg/m2 Yannick Velázquez DO Work Phone: [facility] 01-03-2025 10:45-0400 Body temperature 98.2 [degF] Yannick Velázquez DO Work Phone: [facility] 01-03-2025 10:45-0400 Body weight 66.22 kg Yannick Velázquez DO Work Phone: [facility] 01-03-2025 10:45-0400 Diastolic blood pressure 80 mm[Hg] Yannick Velázquez DO Work Phone: [facility] 01-03-2025 10:45-0400 Heart rate 72 /min Yannick Velázquez DO Work Phone: [facility] 01-03-2025 10:45-0400 SaO2% (BldA) [Mass fraction] 99 % Yannick Velázquez DO Work Phone: [facility] 01-03-2025 10:45-0400 Systolic blood pressure 118 mm[Hg] Yannick Velázquez DO Work Phone: [facility] 12-21-2024 08:35-0400 Body height 177.8 cm Katia Whitt MD Work Phone: [facility] 12-21-2024 08:35-0400 Body mass index (BMI) [Ratio] 21.06 kg/m2 Katia Whitt MD Work Phone: [facility] 12-21-2024 08:35-0400 Body weight 66.59 kg Katia Whitt MD Work Phone: [facility] 12-21-2024 08:35-0400 Diastolic blood pressure 78 mm[Hg] Katia Whitt MD Work Phone: [facility] 12-21-2024 08:35-0400 Systolic blood pressure 124 mm[Hg] Katia Whitt MD Work Phone: [facility] 11-09-2024 11:51-0400 Body height 177.8 cm Katia Whitt MD Work Phone: [facility] 11-09-2024 11:51-0400 Body mass index (BMI) [Ratio] 21.64 kg/m2 Katia Whitt MD Work Phone: [facility] 11-09-2024 11:51-0400 Body weight 68.4 kg Katia Whitt MD Work Phone: [facility] 11-09-2024 11:51-0400 Diastolic blood pressure 88 mm[Hg] Katia Whitt MD Work Phone: [facility] 11-09-2024 11:51-0400 Systolic blood pressure 132 mm[Hg] Katia Whitt MD Work Phone: [facility] 10-26-2024 15:27-0400 Body height 177.8 cm Katia Whitt MD Work Phone: [facility] 10-26-2024 15:27-0400 Body mass index (BMI) [Ratio] 21.03 kg/m2 Katia Whitt MD Work Phone: [facility] 10-26-2024 15:27-0400 Body weight 66.5 kg Katia Whitt MD Work Phone: [facility] 10-20-2024 12:36-0400 Body height 177.16 cm [facility] 10-20-2024 12:36-0400 Body mass index (BMI) [Ratio] 21.2 kg/m2 [facility] 10-20-2024 12:36-0400 Body temperature 98.3 [degF] [facility] 10-20-2024 12:36-0400 Body weight 66.67 kg [facility] 10-20-2024 12:36-0400 Diastolic blood pressure 86 mm[Hg] [facility] 10-20-2024 12:36-0400 Heart rate 104 /min [facility] 10-20-2024 12:36-0400 SaO2% (BldA) [Mass fraction] 96 % [facility] 10-20-2024 12:36-0400 Systolic blood pressure 130 mm[Hg] [facility] 09-29-2024 08:57-0400 Body height 177.16 cm [facility] 09-29-2024 08:57-0400 Body mass index (BMI) [Ratio] 21.9 kg/m2 [facility] 09-29-2024 08:57-0400 Body temperature 98 [degF] [facility] 09-29-2024 08:57-0400 Body weight 68.94 kg [facility] 09-29-2024 08:57-0400 Diastolic blood pressure 80 mm[Hg] [facility] 09-29-2024 08:57-0400 SaO2% (BldA) [Mass fraction] 99 % [facility] 09-29-2024 08:57-0400 Systolic blood pressure 136 mm[Hg] [facility] 08-31-2024 15:36-0500 Body height 179.1 cm Katia Whitt MD Work Phone: [facility] 08-31-2024 15:36-0500 Body mass index (BMI) [Ratio] 22.66 kg/m2 Katia Whitt MD Work Phone: [facility] 08-31-2024 15:36-0500 Body weight 72.67 kg Katia Whitt MD Work Phone: [facility] 08-31-2024 15:36-0500 Diastolic blood pressure 84 mm[Hg] Katia Whitt MD Work Phone: [facility] 08-31-2024 15:36-0500 Systolic blood pressure 136 mm[Hg] Katia Whitt MD Work Phone: [facility] 08-04-2024 15:17-0500 Body height 177.8 cm Reza Gorman MD Work Phone: [facility] 08-04-2024 15:17-0500 Body mass index (BMI) [Ratio] 22.1 kg/m2 Reza Gorman MD Work Phone: [facility] 08-04-2024 15:17-0500 Body weight 69.85 kg Reza Gorman MD Work Phone: [facility] 08-04-2024 15:17-0500 Diastolic blood pressure 85 mm[Hg] Reza Gorman MD Work Phone: [facility] 08-04-2024 15:17-0500 Heart rate 80 /min Reza Gorman MD Work Phone: [facility] 08-04-2024 15:17-0500 Systolic blood pressure 141 mm[Hg] Reza Gorman MD Work Phone: [facility] 06-01-2024 08:53-0500 Body height 179.1 cm Katia Whitt MD Work Phone: [facility] 06-01-2024 08:53-0500 Body mass index (BMI) [Ratio] 21.87 kg/m2 Katia Whitt MD Work Phone: [facility] 06-01-2024 08:53-0500 Body weight 70.13 kg Katia Whitt MD Work Phone: [facility] 05-31-2024 13:29-0500 Body height 177.8 cm Ivy Garcia STUDY LEAD Work Phone: [facility] 05-31-2024 13:29-0500 Body mass index (BMI) [Ratio] 22.1 kg/m2 Ivy Irbyr STUDY LEAD Work Phone: [facility] 05-31-2024 13:29-0500 Body weight 69.85 kg Ivy Garcia STUDY LEAD Work Phone: [facility] 05-31-2024 13:29-0500 Diastolic blood pressure 96 mm[Hg] Ivy Solismor STUDY LEAD Work Phone: [facility] 05-31-2024 13:29-0500 Heart rate 106 /min Ivy Solismor STUDY LEAD Work Phone: [facility] 05-31-2024 13:29-0500 Systolic blood pressure 154 mm[Hg] Ivy Solismor STUDY LEAD Work Phone: [facility] 05-18-2024 15:17-0500 Body height 179.1 cm [facility] 05-18-2024 15:17-0500 Body mass index (BMI) [Ratio] 21.36 kg/m2 [facility] 05-18-2024 15:17-0500 Body weight 68.49 kg [facility] 05-18-2024 15:17-0500 Diastolic blood pressure 84 mm[Hg] [facility] 05-18-2024 15:17-0500 Systolic blood pressure 124 mm[Hg] [facility] 04-20-2024 13:18-0400 Blood Pressure Location Florentin NILL [facility] 04-20-2024 13:18-0400 Diastolic blood pressure 106 mm[Hg] Florentin NILL [facility] 04-20-2024 13:18-0400 Heart rate 72 /min Florentin NILL [facility] 04-20-2024 13:18-0400 Respiratory rate 16 /min Florentin NILL [facility] 04-20-2024 13:18-0400 Systolic blood pressure 144 mm[Hg] Florentin NILL [facility] 04-15-2024 11:02-0400 Body height 177.8 cm Suzanne Gee DO Work Phone: [facility] 04-15-2024 11:02-0400 Body mass index (BMI) [Ratio] 22.1 kg/m2 Suzanne Marlen DO Work Phone: [facility] 04-15-2024 11:02-0400 Body weight 69.85 kg Suzanne Marlen DO Work Phone: [facility] 04-15-2024 11:02-0400 Diastolic blood pressure 86 mm[Hg] Suzanne Marlen DO Work Phone: [facility] 04-15-2024 11:02-0400 Heart rate 83 /min Suzanne Marlen DO Work Phone: [facility] 04-15-2024 11:02-0400 SaO2% (BldA) [Mass fraction] 98 % Suzanne Marlen DO Work Phone: [facility] 04-15-2024 11:02-0400 Systolic blood pressure 134 mm[Hg] Suzanne Marlen DO Work Phone: [facility] 03-24-2024 15:02-0400 Body height 177.16 cm [facility] 03-24-2024 15:02-0400 Body mass index (BMI) [Ratio] 22.5 kg/m2 [facility] 03-24-2024 15:02-0400 Body temperature 97.3 [degF] [facility] 03-24-2024 15:02-0400 Body weight 70.76 kg [facility] 03-24-2024 15:02-0400 Diastolic blood pressure 80 mm[Hg] [facility] 03-24-2024 15:02-0400 Heart rate 77 /min [facility] 03-24-2024 15:02-0400 SaO2% (BldA) [Mass fraction] 98 % [facility] 03-24-2024 15:02-0400 Systolic blood pressure 124 mm[Hg] [facility] 03-23-2024 14:54-0400 Body height 180.3 cm Janna Gilman MD Work Phone: [facility] 03-23-2024 14:54-0400 Body mass index (BMI) [Ratio] 21.59 kg/m2 Janna Gilman MD Work Phone: [facility] 03-23-2024 14:54-0400 Body weight 70.2 kg Janna Gilman MD Work Phone: [facility] 03-23-2024 14:54-0400 Diastolic blood pressure 92 mm[Hg] Janna Gilman MD Work Phone: [facility] 03-23-2024 14:54-0400 Heart rate 95 /min Janna Gilman MD Work Phone: [facility] 03-23-2024 14:54-0400 SaO2% (BldA) [Mass fraction] 100 % Janna Gilman MD Work Phone: [facility] 03-23-2024 14:54-0400 Systolic blood pressure 156 mm[Hg] Janna Gilman MD Work Phone: [facility] 12-24-2023 10:31-0400 Body height 177.16 cm [facility] 12-24-2023 10:31-0400 Body mass index (BMI) [Ratio] 21.8 kg/m2 [facility] 12-24-2023 10:31-0400 Body temperature 98.1 [degF] [facility] 12-24-2023 10:31-0400 Body weight 68.49 kg [facility] 12-24-2023 10:31-0400 Diastolic blood pressure 82 mm[Hg] [facility] 12-24-2023 10:31-0400 Heart rate 87 /min [facility] 12-24-2023 10:31-0400 SaO2% (BldA) [Mass fraction] 97 % [facility] 12-24-2023 10:31-0400 Systolic blood pressure 136 mm[Hg] [facility] 12-12-2023 10:35-0400 Body height 180.3 cm Abiodun Casatno DO Work Phone: [facility] 12-12-2023 10:35-0400 Body mass index (BMI) [Ratio] 22.04 kg/m2 Abiodun Castano DO Work Phone: [facility] 12-12-2023 10:35-0400 Body weight 71.67 kg Abiodun Langleyry DO Work Phone: [facility] 12-12-2023 10:35-0400 Respiratory rate 12 /min Abiodun Langleyry DO Work Phone: [facility] 10-21-2023 08:07-0400 Body height 180.3 cm Abiodun Langleyry DO Work Phone: [facility] 10-21-2023 08:07-0400 Body mass index (BMI) [Ratio] 22.04 kg/m2 Abiodun Langleyry DO Work Phone: [facility] 10-21-2023 08:07-0400 Body weight 71.67 kg Abiodun Langleyry DO Work Phone: [facility] 10-21-2023 08:07-0400 Respiratory rate 12 /min Abiodun Langleyry DO Work Phone: [facility] 09-30-2023 10:22-0400 Body height 179.1 cm [facility] 09-30-2023 10:22-0400 Body mass index (BMI) [Ratio] 22.48 kg/m2 [facility] 09-30-2023 10:22-0400 Body weight 72.12 kg [facility] 09-30-2023 10:22-0400 Diastolic blood pressure 64 mm[Hg] [facility] 09-30-2023 10:22-0400 Systolic blood pressure 120 mm[Hg] [facility] 05-22-2023 11:30-0500 Body height 177.16 cm Yannick Velázquez Other [facility] [employer] Other 05-22-2023 11:30-0500 Body mass index (BMI) [Ratio] 22.4 kg/m2 Yannick Velázquez Other [employer] Other 05-22-2023 11:30-0500 Body temperature 98.5 [degF] Yannick Velázquez Other [employer] Other 05-22-2023 11:30-0500 Body weight 70.31 kg Yannick Velázquez Other [employer] Other 05-22-2023 11:30-0500 Diastolic blood pressure 88 mm[Hg] Yannick Johnnakaren Other [employer] Other 05-22-2023 11:30-0500 Respiratory rate 18 /min Yannick Johnnakaren Other [employer] Other 05-22-2023 11:30-0500 SaO2% (BldA) [Mass fraction] 98 % Yannick Johnnakaren Other [employer] Other 05-22-2023 11:30-0500 Systolic blood pressure 138 mm[Hg] Yannick Velázquez Other [employer] Other 03-19-2023 15:20-0400 Body height 177.16 cm Victorina Blades Other [employer] Other 03-19-2023 15:20-0400 Body mass index (BMI) [Ratio] 23.26 kg/m2 Victorina Blades Other [employer] Other 03-19-2023 15:20-0400 Body weight 73.03 kg Victorina Blades Other [employer] Other 03-19-2023 15:20-0400 Diastolic blood pressure 84 mm[Hg] Victorina Blades Other [employer] Other 03-19-2023 15:20-0400 Systolic blood pressure 130 mm[Hg] Victorina Blades Other [employer] Other 02-23-2023 13:27-0400 Body height 177.8 cm DO Yannick Velázquez Work Phone: [facility] 02-23-2023 13:27-0400 Body temperature 99 [degF] DO Yannick Velázquez Work Phone: [facility] 02-23-2023 13:27-0400 Body weight 72.05 kg DO Yannick Velázquez Work Phone: [facility] 02-23-2023 13:27-0400 Diastolic blood pressure 95 mm[Hg] DO Yannick Velázquez Work Phone: [facility] 02-23-2023 13:27-0400 Heart rate 101 /min DO Yannick Velázquez Work Phone: [facility] 02-23-2023 13:27-0400 Respiratory rate 18 /min DO Yannick Velázquez Work Phone: [facility] 02-23-2023 13:27-0400 SaO2% (BldA) [Mass fraction] 98 % DO Yannick Velázquez Work Phone: [facility] 02-23-2023 13:27-0400 Systolic blood pressure 152 mm[Hg] DO Yannick Velázquez Work Phone: [facility] 02-12-2023 10:00-0400 Body height 177.16 cm Victorina Blades Other [employer] Other 02-12-2023 10:00-0400 Body mass index (BMI) [Ratio] 23.41 kg/m2 Victorina Blades Other [employer] Other 02-12-2023 10:00-0400 Body weight 73.48 kg Victorina Blades Other [employer] Other 02-12-2023 10:00-0400 Diastolic blood pressure 82 mm[Hg] Victorina Blades Other [employer] Other 02-12-2023 10:00-0400 Systolic blood pressure 120 mm[Hg] Victorina Blades Other [employer] Other 01-21-2023 09:10-0400 Body height 177.16 cm Tonia Sandoval Other [employer] Other 01-21-2023 09:10-0400 Body mass index (BMI) [Ratio] 23.84 kg/m2 Tonia Sandoval Other [employer] Other 01-21-2023 09:10-0400 Body temperature 97.6 [degF] Tonia Sandoval Other [employer] Other 01-21-2023 09:10-0400 Body weight 74.84 kg Tonia Sandoval Other [employer] Other 01-21-2023 09:10-0400 Diastolic blood pressure 88 mm[Hg] Tonia Sandoval Other [employer] Other 01-21-2023 09:10-0400 Respiratory rate 18 /min Tonia Sandoval Other [employer] Other 01-21-2023 09:10-0400 SaO2% (BldA) [Mass fraction] 99 % Tonia Sandoval Other [employer] Other 01-21-2023 09:10-0400 Systolic blood pressure 125 mm[Hg] Tonia Sandoval Other [employer] Other 12-20-2022 08:10-0400 Body height 177.16 cm Yannick Velázquez Other [employer] Other 12-20-2022 08:10-0400 Body mass index (BMI) [Ratio] 23.55 kg/m2 Yannick Velázquez Other [employer] Other 12-20-2022 08:10-0400 Body temperature 98.6 [degF] Yannick Velázquez Other [employer] Other 12-20-2022 08:10-0400 Body weight 73.94 kg Yannick Velázquez Other [employer] Other 12-20-2022 08:10-0400 Diastolic blood pressure 70 mm[Hg] Yannick Velázquez Other [employer] Other 12-20-2022 08:10-0400 Respiratory rate 20 /min Yannick Velázquez Other [employer] Other 12-20-2022 08:10-0400 SaO2% (BldA) [Mass fraction] 97 % Yannick Velázquez Other [employer] Other 12-20-2022 08:10-0400 Systolic blood pressure 110 mm[Hg] Yannick Velázquez Other [employer] Other 07-19-2022 13:30-0500 Body height 177.16 cm Yannick Velázquez Other [employer] Other 07-19-2022 13:30-0500 Body mass index (BMI) [Ratio] 24.2 kg/m2 Yannick Velázquez Other [employer] Other 07-19-2022 13:30-0500 Body temperature 97.8 [degF] Yannick Velázquez Other [employer] Other 07-19-2022 13:30-0500 Body weight 75.98 kg Yannick Velázquez Other [employer] Other 07-19-2022 13:30-0500 Diastolic blood pressure 82 mm[Hg] Yannick Velázquez Other [employer] Other 07-19-2022 13:30-0500 Respiratory rate 18 /min Yannick Velázquez Other [employer] Other 07-19-2022 13:30-0500 SaO2% (BldA) [Mass fraction] 97 % Yannick Velázquez Other [employer] Other 07-19-2022 13:30-0500 Systolic blood pressure 116 mm[Hg] Yannick Velázquez Other [employer] Other 06-24-2022 15:40-0500 Body height 177.16 cm Yannick Velázquez Other [employer] Other 01-28-2022 14:45-0400 Body height 177.16 cm Shara Cutler Other [employer] Other 01-28-2022 14:45-0400 Body mass index (BMI) [Ratio] 24.71 kg/m2 Shara Cutler Other [employer] Other 01-28-2022 14:45-0400 Body temperature 98.5 [degF] Shara Cutler Other [employer] Other 01-28-2022 14:45-0400 Body weight 77.57 kg Shara Cutler Other [employer] Other 01-28-2022 14:45-0400 Diastolic blood pressure 79 mm[Hg] Shara Cutler Other [employer] Other 01-28-2022 14:45-0400 Respiratory rate 18 /min Shara Cutler Other [employer] Other 01-28-2022 14:45-0400 SaO2% (BldA) [Mass fraction] 99 % Shara Cutler Other [employer] Other 01-28-2022 14:45-0400 Systolic blood pressure 111 mm[Hg] Shara [place] Other [employer] Other 01-09-2022 15:20-0400 Body height 177.16 cm Yannick Velázquez Other [employer] Other 01-09-2022 15:20-0400 Body mass index (BMI) [Ratio] 25 kg/m2 Yannick Velázquez Other [employer] Other 01-09-2022 15:20-0400 Body temperature 98.1 [degF] Yannick Velázquez Other [employer] Other 01-09-2022 15:20-0400 Body weight 78.47 kg Yannick Velázquez Other [employer] Other 01-09-2022 15:20-0400 Diastolic blood pressure 76 mm[Hg] Yannick Velázquez Other [employer] Other 01-09-2022 15:20-0400 Respiratory rate 18 /min Yannick Velázquez Other [employer] Other 01-09-2022 15:20-0400 SaO2% (BldA) [Mass fraction] 97 % Yannick Gisel Other [employer] Other 01-09-2022 15:20-0400 Systolic blood pressure 120 mm[Hg] Yannick Velázquez Other [employer] Other 09-10-2021 12:10-0500 Body height 177.16 cm Yannick Johnnakaren Other [employer] Other 09-10-2021 12:10-0500 Body mass index (BMI) [Ratio] 24.42 kg/m2 Yannick Johnnakaren Other [employer] Other 09-10-2021 12:10-0500 Body temperature 97.9 [degF] Yannick Velázquez Other [employer] Other 09-10-2021 12:10-0500 Body weight 76.66 kg Yannick Johnnakaren Other [employer] Other 09-10-2021 12:10-0500 Diastolic blood pressure 80 mm[Hg] Yannick Johnnakaren Other [employer] Other 09-10-2021 12:10-0500 Respiratory rate 16 /min Yannick Johnnakaren Other [employer] Other 09-10-2021 12:10-0500 SaO2% (BldA) [Mass fraction] 97 % Yannick Velázquez Other [employer] Other 09-10-2021 12:10-0500 Systolic blood pressure 118 mm[Hg] Yannick Velázquez Other [employer] Other 06-11-2021 12:10-0500 Body height 177.16 cm Yannick Velázquez Other [employer] Other 06-11-2021 12:10-0500 Body mass index (BMI) [Ratio] 23.34 kg/m2 Yannick Velázquez Other [employer] Other 06-11-2021 12:10-0500 Body temperature 97.6 [degF] Yannick Velázquez Other [employer] Other 06-11-2021 12:10-0500 Body weight 73.26 kg Yannick Velázquez Other [employer] Other 06-11-2021 12:10-0500 Diastolic blood pressure 88 mm[Hg] Yannick Velázquez Other [employer] Other 06-11-2021 12:10-0500 Respiratory rate 18 /min Yannick Velázquez Other [employer] Other 06-11-2021 12:10-0500 SaO2% (BldA) [Mass fraction] 99 % Yannick Velázquez Other [employer] Other 06-11-2021 12:10-0500 Systolic blood pressure 122 mm[Hg] Yannick Velázquez Other [employer] Other 09-06-2020 13:39-0500 Body weight 70.76 kg [facility] 09-06-2020 13:39-0500 Height 180.3 cm [facility] Encounters Encounter Date Encounter Type Care Provider Facility Start: 04-06-2025 End: 04-06-2025 ambulatory Yannick Velázquez DO Work Phone: [facility] Work Phone: Start: 04-06-2025 End: 04-06-2025 Patient encounter procedure Yannick Velázquez DO [facility] Work Phone: Start: 03-22-2025 End: 03-22-2025 ambulatory Yannick Velázquez DO Work Phone: [facility] Work Phone: Start: 03-22-2025 End: 03-22-2025 Patient encounter procedure Yannick Velázquez DO [facility] Work Phone: Start: 03-08-2025 End: 03-08-2025 Office outpatient new 60 minutes Yannick Harper DO Work Phone: Neurology Comment on above: Vitreous floaters of left eye (Primary Dx) Start: 03-08-2025 End: 03-08-2025 ambulatory YANNICK HARPER Facility:[facility] Start: 02-08-2025 End: 02-08-2025 ambulatory Yannick Velázquez DO Work Phone: [facility] Work Phone: Start: 02-08-2025 End: 02-08-2025 Patient encounter procedure Yannick Velázquez DO [facility] Work Phone: Start: 01-26-2025 End: 01-26-2025 [...] Obstetrics/Gynecology Start: 01-03-2025 End: 01-03-2025 ambulatory Yannick Gisel TABOR Work Phone: [facility] Work Phone: Start: 01-03-2025 End: 01-03-2025 Patient encounter procedure Yannick Velázquez DO [facility] Work Phone: Start: 12-21-2024 End: 12-21-2024 Office outpatient visit 15 minutes Katia Whitt MD Work Phone: [facility] Comment on above: Menopausal symptom ( Primary Dx) Start: 12-21-2024 End: 12-21-2024 ambulatory [facility] Start: 12-01-2024 End: 12-01-2024 Subsequent hospital visit by physician Dominique [id number] [facility] Comment on above: Encounter for screen ing for cardiovascular disorders Start: 12-01-2024 End: 12-01-2024 ambulatory YANNICK Tran [facility] Start: 11-30-2024 End: 11-30-2024 Telephone encounter Laurie Steward MA [facility] Start: 11-29-2024 End: 11-30-2024 Refill Katia Whitt MD Work Phone: [facility] Start: 11-09-2024 End: 11-09-2024 Office outpatient visit 15 minutes Katia Whitt MD Work Phone: [facility] Comment on above: Thickened endometriu m (Primary Dx); Menopausal symptom; Vaginal atrophy Start: 11-09-2024 End: 11-09-2024 ambulatory [facility] Start: 10-26-2024 End: 10-26-2024 [facility] Start: 10-26-2024 End: 10-26-2024 Patient encounter procedure Katia Whitt MD Work Phone: [facility] Comment on above: Postmenopausal (Prim armida Dx); DUB (dysfunctional uterine bleeding) [N93.8]; Thickened endometrium Start: 10-26-2024 End: 10-26-2024 ambulatory [facility] Start: 10-20-2024 End: 10-20-2024 ambulatory [facility] Work Phone: Start: 10-20-2024 End: 10-20-2024 [facility] encounter [facility] Work Phone: Start: 10-19-2024 End: 10-19-2024 ambulatory Janna Gilman MD Work Phone: Neurology Comment on above: Question Start: 10-01-2024 End: 10-04-2024 Telephone encounter Laurie Steward MA [facility] Start: 09-29-2024 End: 09-29-2024 ambulatory [facility] Work Phone: Start: 09-29-2024 End: 09-29-2024 Patient encounter procedure [facility] Work Phone: Start: 08-31-2024 End: 08-31-2024 Office outpatient visit 15 minutes Katia Whitt MD Work Phone: [facility] Comment on above: Vaginal lesion (Prim armida Dx); Thickened endometrium Start: 08-31-2024 End: 08-31-2024 ambulatory [facility] Start: 08-04-2024 End: 08-04-2024 [...] ENT Start: 07-01-2024 End: 07-01-2024 [facility] Start: 06-24-2024 End: 06-24-2024 ambulatory [facility] Facility:[facility] Start: 06-23-2024 End: 06-23-2024 ambulatory [facility] Start: 06-17-2024 End: 06-17-2024 ambulatory [facility] Start: 06-11-2024 End: 06-11-2024 ambulatory Janna Gilman MD Work Phone: Neurology Comment on above: MRI result Start: 06-11-2024 End: 06-11-2024 E-mail encounter from caregiver Janna Gilman MD Work Phone: Neurology Start: 06-10-2024 End: 06-10-2024 ambulatory JANNA GILMAN Facility:[facility] Start: 06-10-2024 End: 06-10-2024 Subsequent hospital visit by physician Mri [facility] Cookie (1.5t) Work Phone: Radiology Comment on above: 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 Start: 05-31-2024 End: 05-31-2024 Bamboo flowsheet Ivy Garcia STUDY LEAD [facility] Start: 05-31-2024 End: 05-31-2024 Office outpatient visit 25 minutes Ivy Solissuman STUDY LEAD Work Phone: [facility] Comment on above: Restless legs (Prima ry Dx); Benign fasciculation-cramp syndrome; Hypersomnia; PLMD (periodic limb movement disorder); Chronic low back pain, unspecified back pain laterality, unspecified whether sciatica present; Sleep disturbance Start: 05-31-2024 End: 05-31-2024 ambulatory IVY IRBYLoli Not Available Start: 05-31-2024 End: 05-31-2024 ambulatory [facility] Start: 05-18-2024 End: 05-18-[address] 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[employer] [facility] [place] Comment on above: [...] Start: 04-20-2024 End: 04-20-2024 ambulatory Yannick Velázquez Facility:[facility] Start: 04-20-2024 End: 04-20-2024 Patient encounter procedure Florentin Loli [place] [facility] Start: 04-15-2024 End: 04-15-2024 Bamboo flowsheet Suzanne Marlen DO Work Phone: [facility] Start: 04-15-2024 End: 04-15-2024 Bamboo flowsheet Suzanne Marlen DO Work Phone: [facility] Start: 04-15-2024 End: 04-15-2024 Office outpatient visit 25 minutes Suzannezeenat Gee DO Work Phone: [facility] Comment on above: AB (obstructive sle ep apnea) (Primary Dx); Hypersomnia; Sleep disturbance; Catathrenia; Sleep talking Start: 04-15-2024 End: 04-15-2024 ambulatory SUZANNE GEE Not Available Start: 03-25-2024 ambulatory Yannick Velázquez Facility:[facility] Start: 03-24-2024 End: 03-24-2024 ambulatory [facility] Work Phone: Start: 03-24-2024 End: 03-24-2024 Patient encounter procedure [facility] Work Phone: Start: 03-23-2024 Non-patient / Non-visit [facility] Work Phone: Start: 03-23-2024 [...] Neurology Start: 02-04-2024 End: 02-04-2024 ambulatory REZA GORMAN Not Available Start: 01-07-2024 End: 01-07-2024 Orders Only Raven Smith COLLECTIONS SPECIALIST-NEW ACCOUNTS CLERK Work Phone: [facility] Comment on above: Heterogeneously dens e tissue of both breasts on mammography (Primary Dx) Start: 12-24-2023 End: 12-24-2023 ambulatory [facility] Work Phone: Start: 12-24-2023 End: 12-24-2023 Patient encounter procedure [facility] Work Phone: Start: 12-12-2023 End: 12-12-2023 Patient encounter procedure Abiodun Castano DO Work Phone: [facility] Comment on above: Fasciculation (Prima ry Dx); Hyperreflexia; Degeneration of lumbar or lumbosacral intervertebral disc Start: 12-09-2023 ambulatory Abiodun rios DO Work Phone: [facility] Comment on above: MRI brain cervical t horacic Start: 12-09-2023 E-mail encounter fro m caregiver Abiodun Castano DO Work Phone: [facility] [place] Start: 12-09-2023 End: 12-09-2023 Subsequent hospital visit by physician Mri [facility] Cookie (1.5t) Work Phone: Radiology Comment on above: 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 ] Start: 11-12-2023 Non-patient / [facility]visit [facility] Work Phone: Start: 11-10-2023 End: 11-10-2023 ambulatory [facility] Work Phone: Start: 11-10-2023 End: 11-10-2023 Patient encounter procedure [facility] Work Phone: Start: 11-06-2023 Telephone encounter Abiodun calabrese DO Work Phone: [facility] Comment on above: MRI Appointment Start: 11-05-2023 Telephone encounter Abiodun calabrese DO Work Phone: [facility] Start: 10-28-2023 Telephone encounter Abiodun calabrese DO Work Phone: [facility] Comment on above: MRI Appointment; Fol low Up Start: 10-25-2023 Non-patient / Non-visit [facility] Work Phone: Start: 10-23-2023 ambulatory Abiodun Langley blanca DO Work Phone: [facility] Start: 10-23-2023 Patient encounter procedure Abioduncandi Laureanochary DO Work Phone: [facility] Comment on above: Today's Appointment Start: 10-21-2023 End: 10-21-2023 Patient encounter procedure Abiodun Castano DO Work Phone: [facility] Comment on above: Lumbar radiculopathy (Primary Dx); Hyperreflexia; Cardiac murmur; Fasciculation; Neuromuscular scoliosis of thoracic region; Chiari I malformation (HCC); Spinal stenosis of cervical region; Syringomyelia and syringobulbia (HCC); Demyelinating disease of central nervous system (HCC) Start: 10-07-2023 Non-patient / Non-visit [facility] Work Phone: Start: 09-30-2023 End: 09-30-2023 [facility] Start: 09-30-2023 End: 09-30-2023 Office outpatient visit 15 minutes P[facility] Ob [employer]maker [employer] [place] [facility] 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[employer] - [facility] [place] Comment on above: PMB (postmenopausal bleeding) (Primary Dx); Vaginal atrophy Start: 09-24-2023 Non-patient / Non-visit [facility] Work Phone: Start: 09-17-2023 End: 09-17-2023 ambulatory [facility] Work Phone: Start: 09-17-2023 End: 09-17-2023 Patient encounter procedure [facility] Work Phone: Start: 06-17-2023 End: 06-17-2023 ambulatory Yannick Velázquez Other [employer] Other Start: 06-17-2023 Office outpatient vi sit 15 minutes Yannick Velázquez [facility] [place] Start: 05-27-2023 End: 05-28-2023 ambulatory Yannick Velázquez DO Facility[facility] Start: 05-23-2023 End: 05-23-2023 ambulatory Yannick Velázquez Other [employer] Other Start: 05-23-2023 Telephone encounter Yannick Velázquez [facility] [place] Start: 05-22-2023 End: 05-22-2023 ambulatory Yannick Velázquez Other [employer] Other Start: 05-22-2023 Office outpatient vi sit 25 minutes Yannick Velázquez [facility] [place] Start: 04-29-2023 End: 04-29-2023 ambulatory Yannick Velázquez Other [employer] Other Start: 04-29-2023 Telephone encounter Ynanick Velázquez [facility] [place] Start: 04-16-2023 End: 04-16-2023 ambulatory Yannick Velázquez Other [employer] Other Start: 04-16-2023 Telephone encounter Yannick Velázquez [facility] [place] Start: 04-15-2023 End: 04-15-2023 ambulatory Yannick Velázquez Other [employer] Other Start: 04-15-2023 Telephone encounter Yannick Velázquez [facility] [place] Start: 04-02-2023 End: 04-02-2023 ambulatory Yannick Velázquez Other [employer] Other Start: 04-02-2023 Telephone encounter Yannick Velázquez [facility] [place] Start: 03-19-2023 End: 03-19-2023 ambulatory Victorina Marquiss Other [employer] Other Start: 03-19-2023 Office outpatient vi sit 15 minutes Victorina Blades [facility] Start: 03-13-2023 End: 03-13-2023 ambulatory Yannick Velázquez Other [employer] Other Start: 03-13-2023 Telephone encounter Yannick Velázquez [facility] [place] Start: 03-05-2023 End: 03-05-2023 ambulatory Yannick Velázquez Other [employer] Other Start: 03-05-2023 Telephone encounter Yannick Velázquez [facility] [place] Start: 03-03-2023 End: 03-03-2023 ambulatory Yannick Velázquez Other [employer] Other Start: 03-03-2023 Telephone encounter Yannick Velázquez [facility] [place] Start: 02-27-2023 End: 02-27-2023 ambulatory DO Yannick Velázquez Work Phone: [facility] Work Phone: Start: 02-27-2023 End: 02-27-2023 Patient encounter procedure DO Yannick Velázquez Work Phone: [facility] [place] Work Phone: Start: 02-23-2023 End: 02-23-2023 Emergency department patient visit DO Yannick Velázquez Work Phone: [facility] Work Phone: Start: 02-14-2023 End: 02-14-2023 ambulatory Victorina Blades Other [employer] Other Start: 02-14-2023 Telephone encounter Victorina Marquiss [facility] Start: 02-12-2023 End: 02-12-2023 ambulatory Victorina Blades Other [employer] Other Start: 02-12-2023 Office outpatient vi sit 15 minutes Victorinajosé luis Marquiss [facility] Start: 02-10-2023 End: 02-10-2023 ambulatory Yannick Velázquez Other [employer] Other Start: 02-10-2023 Telephone encounter Yannick Velázquez [facility] [place] Start: 02-05-2023 End: 02-05-2023 ambulatory Yannick Velázquez Other [employer] Other Start: 02-05-2023 Telephone encounter Yannick Velázquez [facility] [place] Start: 01-21-2023 End: 01-21-2023 ambulatory Tonia Sandoval Other [employer] Other Start: 01-21-2023 Office outpatient vi sit 25 minutes Tonia Sandoval [facility] Start: 01-08-2023 End: 01-08-2023 ambulatory Yannick Velázquez Other [employer] Other Start: 01-08-2023 Telephone encounter Yannick Velázquez [facility] Start: 01-03-2023 End: 01-03-2023 ambulatory Yannick Velázquez Other [employer] Other Start: 01-03-2023 Telephone encounter Yannick Velázquez [facility] Start: 01-02-2023 Telephone encounter Yannick Velázquez [facility] [place] Start: 01-02-2023 End: 01-02-2023 ambulatory DO Yannick Velázquez Work Phone: [facility] Work Phone: Start: 01-02-2023 End: 01-02-2023 Patient encounter procedure DO Yannick Velázquez Work Phone: [facility] [place] Work Phone: Start: 12-20-2022 End: 12-20-2022 ambulatory Yannick Velázquez Other [employer] Other Start: 12-20-2022 Office outpatient vi sit 25 minutes Yannick Velázquez [facility] Start: 09-24-2022 End: 09-24-2022 ambulatory Victorina Martinez Other [employer] Other Start: 09-24-2022 Telephone encounter Victorina Andino [facility] Start: 09-16-2022 End: 09-16-2022 ambulatory Yannick Velázquez Other [employer] Other Start: 09-16-2022 Office outpatient vi sit 10 minutes Yannick Velázquez [facility] Start: 09-16-2022 Telephone encounter Yannick Velázquez [facility] [place] Start: 08-29-2022 End: 08-29-2022 ambulatory Yannick Velázquez Other [employer] Other Start: 08-29-2022 Telephone encounter Yannick Velázquez [facility] Start: 08-28-2022 End: 08-28-2022 ambulatory DO Yannick Velázquez Work Phone: [facility] Work Phone: Start: 08-28-2022 End: 08-28-2022 Patient encounter procedure DO Yannick Velázquez Work Phone: [facility] [place] Work Phone: Start: 08-07-2022 End: 08-07-2022 ambulatory Yannick Velázquez Other [employer] Other Start: 08-07-2022 Telephone encounter Yannick Velázquez [facility] [place] Start: 07-24-2022 End: 07-24-2022 ambulatory Yannick Velázquez Other [employer] Other Start: 07-24-2022 Telephone encounter Yannick Velázquez [facility] [place] Start: 07-19-2022 End: 07-19-2022 ambulatory Yannick Velázquez Other [employer] Other Start: 07-19-2022 Office outpatient vi sit 25 minutes Yannick Velázquez [facility] [place] Start: 07-03-2022 End: 07-04-[address] YANNICK VELÁZQUEZ Facility: Start: 07-03-2022 Telephone encounter Yannick Velázquez [facility] [place] Start: 06-24-2022 End: 06-24-2022 ambulatory Yannick Velázquez Other [employer] Other Start: 06-24-2022 Office outpatient vi sit 15 minutes Yannick Velázquez [facility] [place] Start: 06-24-2022 Telephone encounter Yannick Velázquez [facility] [place] Start: 05-29-2022 End: 05-29-2022 ambulatory Yannick Velázquez Other [employer] Other Start: 05-29-2022 Telephone encounter Yannick Velázquez [facility] Start: 05-09-2022 End: 05-09-2022 ambulatory Yannick Velázquez Other [employer] Other Start: 05-09-2022 Telephone encounter Yannick Velázquez [facility] Start: 04-10-2022 End: 04-10-2022 ambulatory Yannick Velázquez Other [employer] Other Start: 04-10-2022 Office outpatient vi sit 15 minutes Yannick Velázquez [facility] [place] Start: 03-26-2022 End: 03-26-2022 ambulatory Yannick Velázquez Other [employer] Other Start: 03-26-2022 Office outpatient vi sit 15 minutes Yannick Velázquez [facility] [place] Start: 03-20-2022 End: 03-21-[address] YANNICK VELÁZQUEZ Facility:[facility] Start: 02-15-2022 End: 02-15-2022 ambulatory Yannick Velázquez Other [employer] Other Start: 02-15-2022 Telephone encounter Yannick Velázquez [facility] Start: 01-28-2022 End: 01-28-2022 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 Shara Sullivanault Work Phone: [facility] Start: 01-28-2022 End: 01-28-2022 ambulatory Shara He Other [employer] Other Start: 01-28-2022 Office outpatient vi sit 15 minutes Shara Cutler [facility] Start: 01-11-2022 End: 01-11-2022 ambulatory Yannick Velázquez Other [employer] Other Start: 01-11-2022 Telephone encounter Yannick Velázquez [facility] [place] Start: 01-10-2022 End: 01-11-[address] YANNICK VELÁZQUEZ Facility:[facility] Start: 01-09-2022 End: 01-09-2022 ambulatory Yannick Velázquez Other [employer] Other Start: 01-09-2022 Office outpatient vi sit 15 minutes Yannick Velázquez [facility] Start: 01-08-2022 End: 01-08-2022 ambulatory Yannick Velázquez Other [employer] Other Start: 01-08-2022 Telephone encounter Yannick Velázquez [facility] Start: 12-24-2021 End: 12-24-2021 ambulatory Yannick Velázquez Other [employer] Other Start: 12-24-2021 Telephone encounter Yannick Velázquez [facility] Start: 12-11-2021 End: 12-11-2021 ambulatory Yannick Velázquez Other [employer] Other Start: 12-11-2021 Office outpatient vi sit 15 minutes [facility] Start: 12-11-2021 Telephone [facility] Start: 09-10-2021 End: 09-10-2021 ambulatory Yannick Velázquez Other [employer] Other Start: 09-10-2021 Office outpatient vi sit 15 minutes [facility] Start: 08-01-2021 End: 08-01-[address] YANNICK VELÁZQUEZ Facility: Start: 06-11-2021 End: 06-11-2021 ambulatory Yannick Velázquez Other [employer] Other Start: 06-11-2021 Office outpatient vi sit 15 minutes Yannick Velázquez [facility] Start: 09-06-2020 End: 09-06-2020 Patient encounter procedure David Keane Work Phone: Urology Comment on above: Dysuria; Cystocele with prolapse; Nocturia Procedures Date Procedure Procedure Detail Performing Clinician Start: 03-22-2025 US abdomen limited Charles danica Velázquez DO Work Phone: Start: 03-22-2025 XR thoracic spine 3V* D loren Velázquez DO Work Phone: Start: 01-18-2025 Us soft tissue head & [...] Generic External Data Provider Start: 01-07-2024 Mammography [facility] Start: 12-09-2023 Mri [...] [Identifier] in Cervix by 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[employer] Start: 01-28-2022 X-ray of right foot 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 -C Shara He Work Phone: Start: 09-06-2020 Urnls dip stick/tabl et rgnt auto w/o microscopy David Keane Work Phone: Start: 02-17-2020 Cystoscopy Florentin PEREZ section Florentin Powell Excision of bunion Florentin MATTSON Ligation of fallopian tube Shani NEVILLE Lysis of adhesions Florentin MATTSON Tonsillectomy Florentin NEVILLE Plan of Treatment Date Care Activity Detail Author Start: 12-19-2026 DTaP,Tdap and Td Vac cines (2 - Td or Tdap) DTaP,Tdap and Td Vaccines (2 - Td or Tdap) [facility] Start: 12-19-2026 DTaP/Tdap/Td Vaccine s (2 - Td or Tdap) DTaP/Tdap/Td Vaccines (2 - Td or Tdap) [facility] Start: 12-19-2026 Urine microalbumin profile DTaP,Tdap,Td Vaccine (2 - Td or Tdap) [facility] Start: 12-21-2025 Adult BMI Screening Adult BMI Screen ing [facility] Start: 12-21-2025 Tobacco Screening Tobacco Screening [facility] Start: 11-09-2025 Adult BMI Screening Adult BMI Screen ing [facility] Start: 11-09-2025 Tobacco Screening Tobacco Screening [facility] Start: 10-26-2025 Adult BMI Screening Adult BMI Screen ing [facility] Start: 10-26-2025 Tobacco Screening Tobacco Screening [facility] Start: 08-31-2025 Adult BMI Screening Adult BMI Screen ing [facility] Start: 08-31-2025 Tobacco Screening Tobacco Screening [facility] Start: 07-01-2025 Screening for malign ant neoplasm of breast Mammogram [facility] Start: 06-01-2025 Adult BMI Screening Adult BMI Screen ing [facility] Start: 06-01-2025 Tobacco Screening Tobacco Screening [facility] Start: 05-22-2025 Screening for malign ant neoplasm of cervix Pap Smear [facility] Start: 05-18-2025 Adult BMI Screening Adult BMI Screen ing [facility] Start: 05-18-2025 Tobacco Screening Tobacco Screening [facility] Start: 05-02-2025 End: 05-02-2025 Patient encounter procedure 05/02/2025 12:30 PM EDT [facility] [address] [place] [phone] Maryse Zapata MD [address] [place] [address] [facility] Start: 03-07-2025 Influenza vaccination P [facility] Start: 01-26-2025 End: 01-26-2025 Patient encounter procedure 01/26/2025 8:00 AM EDT Office Visit [facility] [address] [facility] [address] [place] [address] Reza Gorman MD [address] [facility] [address] [place] [address] [facility] Start: 01-06-2025 Screening for malign ant neoplasm of breast [facility] Start: 12-21-2024 End: 12-21-2024 Patient encounter procedure 12/21/2024 8:30 AM EDT Office Visit [facility] [address] [place] [place] [phone] Katia Whitt MD [address] [place] [address] [facility] Start: 11-09-2024 End: 11-09-2024 Patient encounter procedure 11/09/2024 11:30 AM EDT Office Visit [facility] [address] [place] [place] [phone] Katia Whitt MD [address] [place] [address] [facility] Start: 10-26-2024 End: 10-26-2024 Patient encounter procedure 10/26/2024 3:00 PM EDT Procedure visit [facility] [address] [place] [phone] Katia Whitt MD [address] [place] [place] [address] [facility] Start: 10-26-2024 End: 10-26-2025 Surgical Pathology Surgical Pathology Pathology and Cytology Routine Thickened endometrium Expected: 10/26/2024 (Approximate), Expires: 10/26/2025 [facility] Work Phone: Comment on above: Expected: 10/26/2024 (Approximate), Expires: 10/26/2025 Start: 09-29-2024 Adult BMI Screening Adult BMI Screen ing [facility] Start: 09-29-2024 Tobacco Screening Tobacco Screening [facility] Start: 08-31-2024 End: 08-31-2024 Patient encounter procedure 08/31/2024 3:45 PM EST Office Visit [facility] [address] [place] [address] Katia Whitt MD [address] [place], [place] [phone] [facility] Start: 08-19-2024 End: 08-19-2024 Patient encounter procedure [facility] Start: 08-04-2024 End: 08-04-2024 Patient encounter procedure [facility] Comment on above: Arrived Start: 06-11-2024 End: 06-11-2024 Patient encounter procedure 06/11/2024 2:30 PM EST Appointment [facility] [address] [place] [phone] [facility] Start: 06-07-2024 End: 06-07-2025 MR Lumbar spine WO contrast MR lumbar spine wo contrast Imaging Routine Benign fasciculation-cramp syndrome Chronic low back pain, unspecified back pain laterality, unspecified whether sciatica present Expected: 06/07/2024 (Approximate), Expires: 06/07/2025 [facility] Comment on above: Expected: 06/07/2024 (Approximate), Expires: 06/07/2025 Start: 06-01-2024 End: 06-01-2025 US Pelvis transabdominal and transvaginal Ultrasound pelvic with transvaginal Imaging Routine Vaginal lesion Expected: 06/01/2024, Expires: 06/01/2025 [facility] Work Phone: Comment on above: Expected: 06/01/2024 , Expires: 06/01/2025 Start: 06-01-2024 End: 06-01-2024 Patient encounter procedure 06/01/2024 9:00 AM EST Procedure visit [facility] [address] [place] [place] [phone] Katia Whitt MD [address] [place] [place] [address] [facility] Start: 05-31-2024 End: 05-31-2025 Basic metabolic 1998 panel - Serum or Plasma Basic metabolic panel Lab Routine Restless legs Benign fasciculation-cramp syndrome Expected: 05/31/2024 (Approximate), Expires: 05/31/2025 [facility] Comment on above: Expected: 05/31/2024 (Approximate), Expires: 05/31/2025 Start: 05-31-2024 End: 05-31-2025 Ferritin [Mass/volume] in Serum or Plasma Ferritin Lab Routine Restless legs Benign fasciculation-cramp syndrome Expected: 05/31/2024 (Approximate), Expires: 05/31/2025 [facility] Comment on above: Expected: 05/31/2024 (Approximate), [...] fasciculation-cramp syndrome Expected: 05/31/2024 (Approximate), Expires: 05/31/2025 [facility] Comment on above: Expected: 05/31/2024 (Approximate), Expires: 05/31/2025 Start: 05-31-2024 End: 05-31-2025 Protein electrophoresis, serum Protein electrophoresis, serum Lab Routine Restless legs Benign fasciculation-cramp syndrome Expected: 05/31/2024 (Approximate), Expires: 05/31/2025 [facility] Comment on above: Expected: 05/31/2024 (Approximate), Expires: 05/31/2025 Start: 05-31-2024 End: 05-31-2025 Thyrotropin [Units/volume] in Serum or Plasma TSH Lab Routine Restless legs Benign fasciculation-cramp syndrome Expected: 05/31/2024 (Approximate), Expires: 05/31/2025 [facility] Work Phone: Comment on above: Expected: 05/31/2024 (Approximate), Expires: 05/31/2025 Start: 05-31-2024 End: 05-31-2025 Vitamin B1 Vitamin B1 Lab Routine Restless legs Benign fasciculation-cramp syndrome Expected: 05/31/2024 (Approximate), Expires: 05/31/2025 [facility] Comment on above: Expected: 05/31/2024 (Approximate), Expires: 05/31/2025 Start: 05-31-2024 End: 05-31-2025 VITAMIN B12/FOLATE, SERUM PANEL VITAMIN B12/FOLATE, SERUM PANEL Lab Routine Restless legs Benign fasciculation-cramp syndrome Expected: 05/31/2024 (Approximate), Expires: 05/31/2025 [facility] Comment on above: Expected: 05/31/2024 (Approximate), Expires: 05/31/2025 Start: 05-31-2024 End: 05-31-2025 Vitamin B6 Vitamin B6 Lab Routine Restless legs Benign fasciculation-cramp syndrome Expected: 05/31/2024 (Approximate), Expires: 05/31/2025 [facility] Comment on above: Expected: 05/31/2024 (Approximate), Expires: 05/31/2025 Start: 05-31-2024 End: 05-31-2024 Patient encounter procedure [facility] Comment on above: Arrived Start: 05-25-2024 End: 05-25-2024 Patient encounter procedure 05/25/2024 2:30 PM EST [facility] [address] [place] [address] [facility] [place] Start: 05-18-2024 End: 05-18-2025 Bacteria identified in Urine by Culture Urine Culture Microbiology Routine Urinary urgency Expected: 05/18/2024 (Approximate), Expires: 05/18/2025 [email or web address] Work Phone: Comment on above: Expected: 05/18/2024 (Approximate), Expires: 05/18/2025 Start: 05-18-2024 End: 05-18-2025 DXA Skeletal system Views for bone density Dexa scan central skeletal Imaging Routine Screening for osteoporosis Postmenopausal Hx of osteopenia Expected: 05/18/2024, Expires: 05/18/2025 [facility] Comment on above: Expected: 05/18/2024 , Expires: 05/18/2025 Start: 04-15-2024 End: 04-15-2025 Multiple sleep latency test Multiple sleep latency test Sleep Center Routine Hypersomnia Sleep disturbance Catathrenia Sleep talking Expected: 04/15/2024 (Approximate), Expires: 04/15/2025 [facility] Comment on above: Expected: 04/15/2024 (Approximate), Expires: 04/15/2025 Start: 04-15-2024 End: 04-15-2025 Polysomnography Polysomnography Sleep Center Routine AB (obstructive sleep apnea) Expected: 04/15/2024 (Approximate), Expires: 04/15/2025 [facility] Work Phone: Comment on above: Expected: 04/15/2024 (Approximate), Expires: 04/15/2025 Start: 04-15-2024 End: 04-15-2024 Patient encounter procedure 04/15/2024 11:00 AM EDT Office Visit [facility] [address] [facility] [address] [place] [phone] Suzanne Gee, [address] [place] [address] [facility] Comment on above: Arrived Start: 03-24-2024 Patient referral [facility] Work Phone: Start: 03-23-2024 End: 03-23-2024 Patient encounter procedure 03/23/2024 3:00 PM EDT Office Visit Neurology [address] [phone] Janna Gilman MD [address] [place] [address] CONSULT TO NEUROLOGY Neurology Comment on above: CONSULT TO NEUROLOGY Start: 03-23-2024 End: 06-22-2024 CELIAC SCREEN WITH REFLEX [facility] Work Phone: Comment on above: Expected: 03/23/2024 , Expires: 06/22/2024 Start: 03-23-2024 End: 06-22-2024 Ceruloplasmin [Mass/volume] in Serum or Plasma [facility] Comment on above: Expected: 03/23/2024 , Expires: 06/22/2024 Start: 03-23-2024 End: 06-22-2024 COPPER BLOOD [facility] Comment on above: Expected: 03/23/2024 , Expires: 06/22/2024 Start: 03-23-2024 End: 06-22-2024 IMMUNOFIXATION SCREEN, SERUM [facility] Comment on above: Expected: 03/23/2024 , Expires: 06/22/2024 Start: 03-23-2024 End: 06-22-2024 KAPPA/SORIANO,FREE,SER [facility] Comment on above: Expected: 03/23/2024 , Expires: 06/22/2024 Start: 03-23-2024 End: 06-22-2024 Zinc [Mass/volume] in Serum or Plasma [facility] Comment on above: Expected: 03/23/2024 , Expires: 06/22/2024 Start: 03-07-2024 Covid-19 Vaccine ( season) Covid-19 Vaccine () [facility] Start: 03-07-2024 Covid-19 Vaccine () Covid-19 Vaccine () [facility] Start: 03-07-2024 Influenza vaccination C [facility] Start: 01-07-2024 End: 01-06-2025 NM Guidance limited for localization of tumor NM Molecular breast imaging localization limited area Imaging Routine Heterogeneously dense tissue of both breasts on mammography Expected: 01/07/2024, Expires: 01/06/2025 [facility]: Comment on above: Expected: 01/07/2024 , Expires: 01/06/2025 Start: 01-05-2024 End: 01-05-2024 Patient encounter procedure 01/05/2024 9:00 AM EDT Appointment [facility] - Mammogram DEXA [address] [place] [address] [facility] - Mammogram DEXA Start: 01-03-2024 Screening for malign ant neoplasm of breast Mammogram Screening [facility] Start: 12-12-2023 End: 12-12-2023 Patient encounter procedure 12/12/2023 10:50 AM EDT Office Visit [facility] [address] [place] [address] [place] [address] [place] [address] mri (3) follow up [facility] Comment on above: mri (3) follow up Start: 12-09-2023 End: 12-09-2023 Patient encounter procedure 12/09/2023 10:40 AM EDT Appointment Radiology [address] [place] [address] 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] Radiology Comment on above: 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 ] Start: 12-09-2023 End: 12-09-2023 Patient encounter procedure Radiology Comment on above: 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 ] Start: 11-25-2023 End: 11-25-2023 Patient encounter procedure 11/25/2023 2:10 PM EDT Office Visit [facility] [address] [place] [address] [place] [address] [place] [address] MRI follow ups [facility] Comment on above: MRI follow ups Start: 11-16-2023 End: 11-16-2023 Patient encounter procedure 11/16/2023 1:20 PM EDT Appointment [facility]iology MRI [address] [place] [address] 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]; Demyelinating disease of central nervous system (HCC) [G37.9] [facility] MRI Comment on above: 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 ]; Demyelinating disease of central nervous system (HCC) [G37.9] Start: 11-16-2023 End: 11-16-2023 Patient encounter procedure [facility] MRI Comment on above: 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 ]; Demyelinating disease of central nervous system (HCC) [G37.9] Start: 09-30-2023 End: 09-29-2024 US Pelvis transabdominal and transvaginal Ultrasound pelvic with transvaginal Imaging Routine PMB (postmenopausal bleeding) Expected: 09/30/2023, Expires: 09/29/2024 [facility] Work Phone: Comment on above: Expected: 09/30/2023 , Expires: 09/29/2024 Start: 07-07-2023 Behavioral Health Screening Behavioral Health Screening [facility] Start: 03-07-2023 Covid-19 Vaccine () Covid-19 Vaccine () [facility] Start: 03-07-2023 Influenza vaccination Influenza Vacc ine [facility] Start: 03-07-2020 Influenza vaccination INFLUENZA (#1) [facility] Start: 2016 Administration of varicella zoster vaccine Zoster (Shingles) Vaccine (1 of 2) [facility] Start: 2016 Pneumococcal vaccination Pneum ococcal Vaccine (1 of 1 - PCV) [facility] Start: 2016 Pneumococcal Vaccine : 50+ (1 of 1 - PCV) Pneumococcal Vaccine: 50+ (1 of 1 - PCV) [facility] Start: 2016 Screening for malign ant neoplasm of colon [facility] Start: 2016 SHINGRIX VACCINE (1 of 2) PATEL GRIX VACCINE (1 of 2) [facility] Start: 2016 Zoster Vaccines (1 of 2) Zoster Vacc rian (1 of 2) [facility] Start: 10-11-2011 DIABETES SCREEN DIABETES SCREEN [facility] Start: 10-11-2011 Diabetes Screening Diabetes Screenin g [facility] Start: 10-11-2011 Lipid panel Lipid Screening [facility] Start: 10-11-2011 LIPID SCREEN LIPID SCREEN [facility] Start: 10-11-2011 Screening for malign ant neoplasm of colon [facility] Start: 2006 Mammography MAMMOGRAM [facility] Start: 1996 HPV TESTING HPV TESTING [facility] Start: 1996 Screening for malign ant neoplasm of cervix HPV Testing [facility] Start: 10-11-1987 PAP TESTING PAP TESTING [facility] Start: 10-11-1987 Screening for malign ant neoplasm of cervix [facility] Start: 1985 Hepatitis B Vaccine (1 of 3 - 19+ 3-dose series) Hepatitis B Vaccine (1 of 3 - 19+ 3-dose series) [facility] Start: 1985 Hepatitis B Vaccines (1 of 3 - 19+ 3-dose series) Hepatitis B Vaccines (1 of 3 - 19+ 3-dose series) [facility] Start: 1985 Urine microalbumin profile DTAP,TDAP,TD (1 - Tdap) [facility] Start: 1984 Anxiety Screening Anxiety Screening [facility] Start: 1984 Depression Screening Depression Scre ening [facility] Start: 1984 HEPATITIS C SCREENING HEPATITIS C SC REENING [facility] Start: 1984 Hepatitis C screening Hepatitis C [facility] Start: 1984 HIV SCREENING HIV SCREENING [facility] Start: 1984 HIV screening HIV Screening [facility] Start: 1978 Adult depression screening assessment DEPRESSION SCREENING [facility] Start: 10-11-1967 MMR Vaccines (1 of 1 - Standard series) MMR Vaccines (1 of 1 - Standard series) [facility] Start: 1966 HIV screening HIV Screening [facility] Start: 1966 Lipid panel Lipid Panel [facility] Start: 1966 Screening for malign ant neoplasm of colon [facility] Start: 1966 Yearly Adult Physical Yearly Adult P hysical [facility] Comprehensive metabo lic 1999 panel - Serum or Plasma [facility] Comprehensive metabo lic 1999 panel - Serum or Plasma [facility] End: 12-01-2024 CT for calcium scoring WO contrast and CTA W contrast IV Heart and coronary arteries [facility] Service Area Work Phone: Comment on above: Once for 1 Occurrenc es starting 12/01/2024 until 12/01/2024 CT Heart [facility] Fluoroscopy of upper gastrointestinal tract [facility] End: 06-05-2025 MR Brain WO and W contrast IV MRI BRAIN WO/W IVCON Radiology Routine Brain cyst 1 Occurrences starting 05/06/2024 until 06/05/2025 [facility] Work Phone: Comment on above: 1 Occurrences starti ng 05/06/2024 until 06/05/2025 End: 11-25-2024 MR Brain WO contrast MRI BRAIN WO IVCON Radiology Routine Hyperreflexia Demyelinating disease of central nervous system (HCC) 1 Occurrences starting 10/27/2023 until 11/25/2024 [facility] Comment on above: 1 Occurrences starti ng 10/27/2023 until 11/25/2024 End: 11-25-2024 MR Cervical spine WO contrast MRI CERVICAL SPINE WO IVCON Radiology Routine Hyperreflexia Neuromuscular scoliosis of thoracic region Chiari I malformation (HCC) Spinal stenosis of cervical region Syringomyelia and syringobulbia (HCC) Demyelinating disease of central nervous system (HCC) 1 Occurrences starting 10/27/2023 until 11/25/2024 [facility] Work Phone: Comment on above: 1 Occurrences starti ng 10/27/2023 until 11/25/2024 End: 11-25-2024 MR Thoracic spine WO contrast MRI THORACIC SPINE WO IVCON Radiology Routine 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) Demyelinating disease of central nervous system (HCC) 1 Occurrences starting 10/27/2023 until 11/25/2024 [facility] Comment on above: 1 Occurrences starti ng 10/27/2023 until 11/25/2024 Patient Education Radiculopathy (DC) [facility] Work Phone: Patient referral [facility] Work Phone: T3 reverse measurement [facility] End: 05-18-2025 Urinalysis Urinalysis Lab Routine Urinary urgency 1 Occurrences starting 05/18/2024 until 05/18/2025 [employer] Comment on above: 1 Occurrences starti ng 05/18/2024 until 05/18/2025 US Abdomen limited [facility] XR Chest 2 Views [facility] XR Thoracic spine 3 Views [facility] Immunizations Immunization Date Immunization Notes [facility]2016 tetanus toxoid, reduced diphtheria toxoid, and acellular pertussis vaccine, adsorbed Yannick Velázquez Other [facility] NEGATED: Highlighted row has not occurred!06-11-2021 influenza, seasonal, injectable Patient Objection Yannick Velázquez Other [facility] Payers Date Payer Category Payer Self-pay [id number] 2023 Managed Care (Private) [facility] [id number] 2014 [employer] [facility] [employer] [id number] 2014 Private Health Insurance [id number]. [id number] 2014 Unknown 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 [id number] 2014-Present PPO [id number]. [id number] 2014 Unknown 1966 Unknown [id number] 2.16.840.1.889647.3.579.2. 593 1966 Unknown [id number] 2.16.840.1.275770.3.579.2. 593 1966 Unknown [id number] 2.16.840.1.777782.3.579.2. 593 1966 Unknown [id number] 2.16.840.1.895628.3.579.2. 593 1966 Unknown [id number] 2.16.840.1.505608.3.579.2. 196 1966 Unknown [id number] 2.16.840.1.133003.3.579.2. 1285 1966 Unknown [id number] 2.16.840.1.883030.3.579.2. 727 1966 Unknown [id number] 2.16.840.1.005048.3.579.2. 1285 1966 Unknown [id number] 2.16.840.1.309635.3.579.2. 1285 1966 Unknown [id number] 2.16840.1.081372.3.579.2. 1285 1966 Unknown [id number] 2.16.840.1.349223.3.579.2. 1285 1966 Unknown [id number] 2.840.1.524865.3.579.2. 1285 1966 Unknown [id number] 2.840.1.867660.3.579.2. 1285 1966 Unknown [id number] 2.840.1.900234.3.579.2. 1285 1966 Unknown [id number] 2.16840.1.668930.3.579.2. 1285 1966 Unknown [id number] 2.840.1.455383.3.579.2. 1285 1966 Unknown [id number] 2.840.1.870333.3.579.2. 124 1966 Unknown [id number] 2.16840.1.618766.3.579.2. 1285 1966 Unknown [id number] 2.16840.1.970535.3.579.2. 1285 1966 Unknown [id number] 2.16840.1.848223.3.579.2. 1285 1966 Unknown [id number] 2.16.840.1.856111.3.579.2. 6 1966 Unknown [id number] 2.16.840.1.250022.3.579.2. 6 1966 Unknown [id number] 2.16.840.1.254516.3.579.2. 1285 1966 Unknown [id number] 2.16.840.1.507142.3.579.2. 1285 1966 Unknown [id number] 2.16.840.1.712490.3.579.2. 9 1966 Unknown [id number] 2.16840.1.661513.3.579.2. 1258 1966 Unknown [id number] 2.16.840.1.800776.3.579.2. 1258 1966 Unknown [id number] 2.16840.1.510045.3.579.2. 1258 1966 Unknown [id number] 2.16840.1.698121.3.579.2. 1259 1959 Unknown [id number] 2.16.840.1.004220.19 Unknown [id number] 2.16.840.1.988201.3.579.2. 531 Social History Date Type Detail Facility Start: 09-06-2020 End: 04-06-2025 Tobacco smoking status [facility] Never smoker [facility] Start: 09-06-2020 End: 10-21-2023 Tobacco use and exposure Never used [facility] Start: 09-06-2020 End: 03-08-2025 Alcohol intake Current drinker of alcohol (finding) [facility] Start: 09-06-2020 End: 12-12-2023 Alcohol intake [facility] Start: 1965 Sex Assigned At Female [facility] Start: 11-21-2024 End: 12-01-2024 Exposure to SARS-CoV-2 (event) Not sure [facility] Start: 10-21-2023 End: 12-12-2023 Sex Assigned At [facility] Start: 06-07-2012 Adult Depression Screening Assessment 0 [facility] Start: 09-06-2020 Gender identity Identifies as female gender (finding) [facility] Start: 09-06-2020 Sexual orientation Heterosexual (finding) [facility] Start: 03-23-2024 Alcohol Comment 1x/week [facility] How often to you hav e a drink containing alcohol? Monthly or less [facility] Start: 02-04-2024 Alcohol Comment Socially [facility] Start: 1965 Sex assigned at Not on file [facility] Start: 05-08-2022 Alcohol Comment twice a month [facility] Start: 02-09-2015 End: 10-20-2024 Sex Female (finding) [facility] Tobacco smoking stat [facility] Tobacco smoking consumption unknown [facility] Work Phone: How often to you hav e a drink containing alcohol? 2-4 times a month [facility] Work Phone: Functional Status Date Assessment Result Facility 04-20-2024 Functional Status N/A [facility] Clinical Notes 06-11-2021 to [...] neuro-ophthalmology or follow up with your previous parts and service manager given your history of bilateral posterior vitreous detachment as this may be contributing to your reported visual symptoms. Labs: None Imaging: None Education: Recommend talking to primary care provider regarding blood pressure control Referrals: Agree w/ regular parts and service manager or neuro-ophthalmology evaluation Medications: No new medications at this time Follow Up: as needed Please reach out with any further questions or concerns via [employer]. Dr. Harper DO documented in this encounter [facility] 03-08-2025 Note HNO ID: [id number] Author: LAURA CHILDERS MD Service: ? Author Type: Fellow Type: Progress Notes Filed: 03/08/2025 14:46 Note Text: Headache and Facial Pain Section [facility] [place] Date: March 08, 2025 Patient Name: Edna Sultana Referring physician: Janna Gilman [address] [facility] [address] Reason for Evaluation: Headaches HPI: Edna Sultana [...] B1, B6 WNL. Celiac, Ceruloplasmin, Copper, Zinc, Immunofixation/[place]/Lambda. > Overall consensus appears to be possibly [...] Fhx: Migraines: Sister (more content not included)... [facility] 03-08-2025 History of Presen t illness Narrative Images from the original note were not included. Headache and Facial Pain Section [facility] [place] Date: March 08, 2025 Patient Name: Edna Sultana Referring physician: Janna Gilman [address] [facility] [address] Reason for Evaluation: Headaches HPI: Edna Sultana [...] B1, B6 WNL. Celiac, Ceruloplasmin, Copper, Zinc, Immunofixation/[place]/Lambda. > Overall consensus appears to be possibly [...] blood pressure control Referrals: Agree w/ regular parts and service manager or neuro-ophthalmology evaluation Medications: No new medications [...] Fellow CNR, Headache & Facial Pain Section [facility] STAFF PHYSICIAN NOTE OF PERSONAL INVOLVEMENT IN [...] Pain Section 03/08/2025 documented in this encounter [facility] 02-08-2025 Evaluation note Authored February 08, 2025 1:3 4pm The above note written by __ _Prabhjot Tafoya____ acting as human recorder, note dictated by Dr. Layne .I performed the above HPI, ROS, and Examination. I formulated and dictated the treatment plan and was present for entire encounter. Yannick Velázquez D.O. Author Yannick Velázquez [facility] Authored March 22, 2025 3:41pm The above note written by __ _Prabhjot Tafoya____ acting as human recorder, note dictated by Dr. Layne .I performed the above HPI, ROS, and Examination. I formulated and dictated the treatment plan and was present for entire encounter. Yannick Velázquez D.O. [facility] Work Phone: 1(809) 325-401707-23-2025 History of Present illness Narrative* Reza Gorman MD - 01/26/2025 8:00 AM EDT Subjective Patient ID: Edna Sultana is a 59 y.o. female who presents for Thyroid Nodule (6 month ultrasound 01/18/25) Thyroid US shows [id number] LT nodule compared to [id number] one year ago. Family History Problem Relation [...] nodule. Start annual US documented in this encounterKansas City VA Medical CenterZtgsugablg58-52-7730 Miscellaneous Notes* Telephone Encounter - Eugenio Brown CMA - 01/13/2025 4:23 PM EDT Received an Rx from [facility] with a new Rx for HRT per pt request. Spoke with Dr Whitt and she denied signing Rx and wanted to try sending in a different medication. Called pt back and advised her of Dr Whitt not signing Rx from [facility] and pt was upset. 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 Pt was agreeable. Call to [facility] due to Rx requiring JOANN #and if it could be signed without a JOANN number since Raven does not have one. technical staff engineer stated they already received script from another [...] having such high anxiety. [facility] Telephone encounter Note* Telephone Encounter - Eugenio Brown CMA - 01/13/2025 4:23 PM EDT Received an Rx from [facility] with a new Rx for HRT per pt request. Spoke with Dr Whitt and she denied signing Rx and wanted to try sending in a different medication. Called pt back and advised her of Dr Whitt not signing Rx from [facility] and pt was upset. 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 Pt was agreeable. Call to [facility] due to Rx requiring JOANN #and if it could be signed without a JOANN number since Raven does not have one. technical staff engineer stated they already received script from another [...] due to her having such high anxiety. [facility]06-30[facility] Evaluation note* Diagnosis Onset Date Resolution Status Admit Date Anxiety acute January 03 11:03am Arm paresthesia, left acute Kaden 2024 11:03am Fatigue acute January 03 11:03am Low serum estradiol acute January 03, 2025 11:03am Twitching acute January 03 11:03am Anxiety acute February 08, 12:36pm Arm paresthesia, left acute Feb us2024 12:36pm Cat scratch acute February 08, 2 025 12:36pm Twitching acute February 08 12:36pm Urinary frequency acute February 08, 2025 12:36pm [facility] Work Phone: 1(628) 414-107906-17-2025 History of Present illness Narrative* Katia Whitt [...] 07/03/2018 Performed by Osmany Dunn MD at [facility] 1989 TONSILLECTOMY TUBAL LIGATION FAMILY HX Family History [...] pellet therapy. Lab work ordered, requisition provided. KATIA WHITT MD EUGENIO BROWN, LEE Lara Leis 12/21/24 0852 documented in this encounterParkview Health05-27-2025 Miscellaneous Notes* Telephone Encounter - Laurie Steward [...] MA 11/30/24 3:28 PM documented in this encounterParkview Health05-27-2025 Telephone encounter Note* Telephone Encounter - Laurie Steward MA - 11/30/2024 10:22 AM EDT Pt would like to know if we can increase her estradiol patch dosages. Please advise, thank you! - Laurie Steward MA 11/30/24 10:25 AM [facility]05-27-2025 Telephone encounter Note* Telephone Encounter - Katia Whitt MD - 11/30/2024 10:22 AM EDT ADVISE TO GIVE SOME TIME HAS NOT EVEN BEEN 2 WKKS ON PRESENT DOSE BUT CAN KEEP SYMPTOM CALENDAR MOVE APPT UP TO 6WKS FU INSTEAD OF 2-3MOS [facility]05-27-2025 Telephone encounter Note* Telephone Encounter - Laurie Steward MA - 11/30/2024 10:22 AM EDT LMTCB - Laurie Steward MA 11/30/24 3:21 PM [facility]05-27-2025 Telephone encounter Note* Telephone Encounter - Laurie Steward MA - 11/30/2024 10:22 AM EDT Pt called back and was informed of info below. Pt voiced they understood. Pt scheduled 12/21/24. - Laurie Steward MA 11/30/24 3:28 PM [facility]05-06-2025 History of Present illness Narrative* Katia Whitt [...] 07/03/2018 Performed by Osmany Dunn MD at [facility] 1988 TONSILLECTOMY TUBAL LIGATION FAMILY [...] up in 2-3 months. MD EUGENIO DOWD, WELD LAY OUT WORKER Jane Leis 11/09/24 1154 Jane Leis 11/09/24 1200 Jane Leis 11/09/24 1222 documented in this encounterParkview Health04-22-2025 History of Present illness Narrative* Katia Whitt [...] 1530 KATIA WHITT MD documented in this encounterParkview Health04-16-2025 Evaluation note* Author Yannick Velázquez [facility] Authored October 20, 2024 1:2 9pm The above note written by __ _Prabhjot Tafoya____ acting as human recorder, note dictated by Dr. Layne .I performed the above HPI, ROS, and Examination. I formulated and dictated the treatment plan and was present for entire encounter. Yannick Velázquez D.O. [facility] Work Phone: [phone]) 884-741903-28-2025 Miscellaneous Notes* Telephone Encounter - Laurie Steward [...] MA 10/04/24 8:11 AM documented in this encounterUniversity Hospitals Lake West Medical CenterVoztelecom [facility] HospitalCaimcm86-36-1002 Telephone encounter Note* Telephone Encounter - Laurie Steward MA - 10/01/2024 8:38 AM EDT Pt called asking about HRT, would like more info on it. She has an appt for EMB- HYSTO on 10/26/24. Please advise, thank you! - Laurie Steward MA 10/01/24 8:39 AM [facility] Telephone encounter Note* Telephone Encounter - Katia Whitt MD - 10/01/2024 8:38 AM EDT PT SHOULD COMPLETE HER ABNORMAL BLEEDING WORKUP 1ST AND THEN WE WOULD DISCUSS HER HRT OPTIONS AFTERHER BLEEDING WORKUP IS COMPLETED AND WITH HER RESULTS DISCUSSION [employer] Work Phone: [phone] 263-890103-28-2025 Telephone encounter Note* Telephone Encounter - Laurie Steward MA - 10/01/2024 8:38 AM EDT Called pt and was informed of info below. Pt confirmed she understood. - Laurie Steward MA 10/04/24 8:11 AM [facility] Ex[employer] Vocals [id number] Evaluation note* Author Yannick Velázquez [facility] Authored September 29, 2024 10: 02am The above note written by __ _Prabhjot Tafoya____ acting as human recorder, note dictated by Dr. Layne .I performed the above HPI, ROS, and Examination. I formulated and dictated the treatment plan and was present for entire encounter. Yannick Velázquez D.O. [facility] Work Phone: 1([phone] 250-857902-25-2025 History of Present illness Narrative* Katia Whitt [...] 07/03/2018 Performed by Osmany Dunn MD at [facility] 1988 TONSILLECTOMY TUBAL LIGATION FAMILY [...] thoroughly. Patient will follow up for EMB/hysteroscopy. KATIA WHITT MD EUGENIO BROWN, LEE Edwards 08/31/24 1559 documented in this encounterParkview Health01-29-2025 History of Present illness Narrative* Reza Gorman [...] change. Continue semiannual US.b documented in this encounterKansas City VA Medical CenterMcyzsrzzrt92-90-6741 History of Present illness Narrative* Suzanna Gary [...] PATIENT PRESENTS WITH AN IMPLANTABLE OR ATTACHED DRUG SAFETY COORDINATOR: No ALLERGIES: Reviewed and unchanged CONTRAST ALLERGY: NO. EXAM: MRI - CONTRAST TYPE: GROUP II PERIPHERAL IV DATA: Ambulatory: A peripheral IV was started in the Right antecubital site with a Angio cath: 24 gauge. RADIOLOGY DEPARTMENT: MR; Exam(s) Completed: Head: Routine Brain SIGNATURE: RT Galdino(R) PATIENT NAME: Edna Sultana DATE: June 10, 2024 TIME: 10:13 AM documented in this encounter[facility] NoteHNO ID: [id number] Author: SUZANNA GARY RT(R) Service: ? Author [...] PATIENT PRESENTS WITH AN IMPLANTABLE OR ATTACHED DRUG SAFETY COORDINATOR: No ALLERGIES: Reviewed and unchanged CONTRAST ALLERGY: NO. EXAM: MRI - CONTRAST TYPE: GROUP II PERIPHERAL IV DATA: Ambulatory: A peripheral IV was started in the Right antecubital site with a Angio cath: 24 gauge. RADIOLOGY DEPARTMENT: MR; Exam(s) Completed: Head: Routine Brain SIGNATURE: LISHA Ahmadi) PATIENT NAME: Edna Sultana DATE: June 10, 2024 TIME: 10:[address] [facility]11-26-2024 History of Present illness Narrative* Katia Whitt MD - 06/01/2024 9:00 AM EST Edna Sultana is a 58 y.o.female. No LMP recorded. Patient is postmenopausal.. She presents for evaluation of vaginal lesion. REFERRED TO THE PHYSICIAN SCHEDULE FROM STUDY LEAD SCHEDULE PATIENT PREFERS REMOVAL OF LESION. SHE [...] 07/03/2018 Performed by Osmany Dunn MD at [facility] 1988 TONSILLECTOMY TUBAL LIGATION FAMILY [...] states she is agreeable. MD EUGENIO DOWD, [facility] Sari Salinasle 06/01/24 0939 documented in this encounterParkview Health11-25-2024 History of Present illness Narrative* Ivy Garcia, STUDY LEAD - 05/31/2024 1:40 PM EST Images from [...] for cause of calf fasciculations and RLS thatsy has. These are rather bothersome to her. [...] . . Plan MRI lumbar spine at [facility] Order labs for RLS and fasciculations Monitor [...] to clinic: 2-3 months documented in this encounterKansas City VA Medical [id number] History of Present illness Narrative* Raven Hernández, SHER-NEW ACCOUNTS CLERK - 05/18/2024 3:15 PM EST Edna Sultana is a pleasant 58 y.o. female who presents for annual tongue stitcher exam. She is postmenopausal. Hysterectomy: no Patient reports hx a lesion in her vagina that is increasing in size. She has hx genital / rectal wart removal in the past. She states the lesion is not painful but has gotten bigger in the past 6 months. She is sexually active. Denies painful intercourse or pelvic pain. 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 for UTI, still having [...] 07/03/2018 Performed by Osmany Dunn MD at [facility] 1988 TONSILLECTOMY TUBAL LIGATION Family [...] provided. All questions answered. RTO for annual tongue stitcher exam and / or PRN. RTO with physician to evaluate vaginal lesions. PIPPA Witt APRN-CNP 05/18/24 1633 documented in this encounterParkview Health10-15-2024 NoteGeneral Surgery Office/Clinic Note Chief Complaint consultation for lipoma HPI Staff 58 year old female presents on consultation from Dr. Velázquez for lipoma of left abdomen. Reports noting mass near the underside of left rib cage approximately 1 year ago. Denies change in size since first noted. Denies soreness or tenderness. Abdominal US completed 12/2022 at [facility]. History of Present Illness 58 yo female referred for possible lipoma left abdominal wall; abdominal operations significant forc-section and tubal ligation; patient noticed slight lump in area when lying flat; [place] [facility] [place] [...] Heart disease: Brother. Hypertension: Mother. Multiple myeloma: Father.[facility] Medical CenterComment on above:Result Comment: Electronically Signed By: JAMIN LAZO, Florentin Lozada\Date and Time Signed: 04/20/24 15:21 [id number] History of Present illness Narrative* Suzanne Gee, DO - 04/15/2024 11:00 AM EDT Images from the original note were not included. Chief Complaint Patient presents with Sleeping Problem Subjective Edna Sultana, 58 y.o., female HPI The patient states that she had a sleep study at [facility] 27 years ago. She was very [...] to clinic: 2 months documented in this encounterKansas City VA Medical CenterNxaugjrukv59-68-6729 Hospital Discharge instructionsAmbulatory Orders* Referral to General Surgery Time Frame: 03/24/24, Location: [facility] Work Phone: [phone]) 681-226509-17-2024 NoteHNO ID: [id number] Author: JANNA GILMAN MD Service: ? Author [...] which included preparing to see the patient, [id number] patient care, completing clinical documentation, obtaining and/or reviewing separately obtained history, performing a medically appropriate examination, counseling and educating the patient/family/caregiver, and ordering medications, tests, or procedures. Janna Gilman MD cc: Abiodun Castano [id number] [facility] [address] Edna Sultana [phone] [address] [facility] [address]HoavksqtmVeterans Health Administration09-17-2024 History of Present illness Narrative* Janna Gilman [...] which included preparing to see the patient, [id number] patient care, completing clinical documentation, obtaining and/or reviewing separately obtained history, performing a medically appropriate examination, counseling and educating the pat ient/family/caregiver, and ordering medications, tests, or procedures. Janna Gilman MD cc: Abiodun Castano [address] [facility] [address] Edna Sultana [phone] [address] [facility] [address] documented in this encounterSelect [facility] History of Present illness Narrative* Emir Abiodun [...] sense that escaped review. documented in this encounterSelect [facility]06-04-2024 History of Present illness Narrative* Suzanna Gary [...] PATIENT PRESENTS WITH AN IMPLANTABLE OR ATTACHED DRUG SAFETY COORDINATOR: No ALLERGIES: Reviewed and unchanged CONTRAST [...] 2023 TIME: 10:26 AM documented in this encounterSelect [facility]-2024 Evaluation note* Author Yannick Velázquez [facility] Authored November 10, 2023 11:44a m The above note written by __ _Prabhjot Tafoya____ acting as human recorder, note dictated by Dr. Layne .I performed the above HPI, ROS, and Examination. I formulated and dictated the treatment plan and was present for entire encounter. Yannick Velázquez D.O. [facility] Work Phone: 1([phone]) 193-395605-02-2024 Telephone encounter Note* Telephone Encounter - Jules House MA - 11/06/2023 9:08 AM EDT Scheduled 3 mri's and follow up appointment as requested by Dr. Castano. [facility]05-02-2024 Miscellaneous Notes* Telephone Encounter - Jules House MA - 11/06/2023 9:08 AM EDT Scheduled 3 mri's and follow up appointment as requested by Dr. Castano. * Telephone Encounter - Jules House MA - 11/06/2023 7:26 AM EDT end documented in this encounterSelect Medical [facility]05-02-2024 Telephone encounter Note * Telephone Encounter - Jules House MA - 11/06/2023 7:26 AM EDT end [facility]05-01-2024 Telephone encounter Note* Telephone Encounter - Abiodun [...] best recommendation. I willsend the patient a [employer] message also so she is aware. Devin please cancel her other MRIs and I have placed new orders. Abiodun Castano DO [facility] Work Phone: [phone] Miscellaneous Notes* Telephone Encounter - Abiodun Castano [...] best recommendation. I willsend the patient a Ideal Mehart message also so she is aware. Devin please cancel her other MRIs and I have placed new orders. Abiodun Castano DO documented in this encounterSelect Medical [facility]ty [facility]04-23-2024 Telephone encounter Note * Telephone Encounter - Jules House MA - 10/28/2023 9:19 AM EDT Left message for patient to return call to schedule mri's and a follow up appointment. [facility]04-23-2024 Miscellaneous Notes* Telephone Encounter - Jules House MA - 10/28/2023 9:19 AM EDT Left message for patient to return call to schedule mri's and a follow up appointment. documented in this encounterSelect Medical [facility]ty [facility]04-18-2024 Miscellaneous Notes* Telephone Encounter - Frannie Hernandez RN - 10/23/2023 11:20 AM EDT KAYLEEN 10/21/23- unsigned note Additional info patient wanted to share documented in this encounterSelect Medical Specialty [facility]04-16-2024 Instructions* Patient Instructions* Abiodun Castano DO - [...] 8:41 AM documented in this encounterSelect Medical Specialty [facility]04-16-2024 History of Present illness Narrative* Abiodun Castano [...] year. 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 and has been undergoing extensive workup [...] 8:41 AM documented in this encounterSelect Medical [facility]ty [facility]03-26-2024 History of Present illness Narrative* Ledy Emanuel, COLLECTIONS SPECIALIST-CNM - 09/30/2023 10:15 AM EDT Edna Sultana [...] 07/03/2018 Performed by Osmany Dunn MD at [facility] TONSILLECTOMY TUBAL LIGATION FAMILY HX Family [...] MILNER APRN-CNM 09/30/23 1234 documented in this encounterUniversity Hospitals Lake West Medical CenterVoztelecom [facility] HospitalQaqiks02-29-5762 Evaluation note* Author Yannick Velázquez [facility] Authored September 17, 2023 4:4 1pm The above note written by __ _Prabhjot Tafoya____ acting as human recorder, note dictated by Dr. Layne .I performed the above HPI, ROS, and Examination. I formulated and dictated the treatment plan and was present for entire encounter. Yannick Velázquez D.O. [facility] Work Phone: [phone] 220-710612-12-2023 Evaluation note* Encounter Date Diagnosis Assessment Notes [...] She was started on Iron by Dr. Kiko for RLS and she is taking this [...] 5 MG tablets at a pharmacy in [place] to help her wean off the medication. [...] She voices that she is seeing a baffle mounter on 06-19-23 and has an MRI of the right foot. She thinks she may have a neuroma of the right foot because she has a ball on the bottom of her right foot. Jun, Other 10:05 AM - 10:1 7 AM [employer] Other 11-21-2023 Note Yannick Velázquez DO [address], [place] [address] Re: Edna Sultana Date of Visit: 05/27/2023 Dear Yannick Velázquez DO, Let me know if you have any questions or concerns. Sincerely, MARTIN Moreno MD Providers: The following document(s) were included in the letter: May 27, 2023 11:20:24 EST - (05/27/2023) Neurosurgery Office Visit Note [facility]11-16-2023 Evaluation note* Encounter Date Diagnosis Assessment Notes Treatment Notes Treatment Clinical Notes May, Anxiety (ICD-10 - F41.9) When she gets home from work she is restless, does not know what to do with herself. 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 She did increase her Zoloft to 1 [...] any issue with her parathyroid. May, Other custodial (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 therapy (ICD-10 - Z79.899) May, Weight gain (ICD-10 - R63.5) She has gained six pounds since March (2022). May, Other She has an appointment with Avery her homeopathic doctor who always tells her that her Cortisol level is a mess . [employer] Other 10-24-2023 Evaluation note* Encounter Date Diagnosis Assessment Notes Treatment Notes Treatment Clinical Notes Apr, Anxiety (ICD-10 - F41.9) [employer] Other 2023 Evaluation note* Encounter Date Diagnosis Assessment Notes Treatment Notes Treatment Clinical Notes Apr, Other custodial (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 therapy (ICD-10 - Z79.899) Apr, Vitamin B12 deficiency (ICD-10 - E53.8) Apr, Muscle cramp (ICD-10 - R25.2) Apr, Paresthesia (ICD-10 - R20.2) Apr, Vitamin D deficiency (ICD-10 - E55.9) Apr, Fatigue (ICD-10 - R53.83) [employer] Other 2023 Evaluation note* Encounter Date Diagnosis Assessment Notes Treatment Notes Treatment Clinical Notes Apr, Vitamin B12 deficiency (ICD-10 - E53.8) Apr, Hypokalemia (ICD-10 - E87.6) [employer] Other 09-27-2023 Evaluation note* Encounter Date Diagnosis Assessment Notes Treatment Notes Treatment Clinical Notes Mar, Anxiety (ICD-10 - F41.9) [facility] Other 09-13-2023 Evaluation note* Encounter Date Diagnosis Assessment Notes Treatment Notes Treatment Clinical Notes Mar, Lumbar pain (ICD-10 - M54.50) [facility] Other 09-13-2023 Evaluation note* Encounter Date Diagnosis [...] not want to use an inversion table. [employer] Other 08-09-2023 Evaluation note* Encounter Date Diagnosis Assessment Notes Treatment Notes Treatment Clinical Notes Feb, Lumbar pain (ICD-10 - M54.50) [employer] Other 08-02-2023 Evaluation note* Encounter Date Diagnosis Assessment Notes Treatment Notes Treatment Clinical Notes Feb, Lumbar pain (ICD-10 - M54.50) [facility] Other 07-18-2023 Evaluation note* Encounter Date Diagnosis [...] understanding and is agreeable to treatment plan. [facility] Other 07-05-2023 Evaluation note* Encounter Date Diagnosis Assessment Notes Treatment Notes Treatment Clinical Notes Jan, Thyroid nodule (ICD-10 - E04.1) [facility] Other 06-30-2023 Evaluation note* Encounter Date Diagnosis Assessment Notes Treatment Notes Treatment Clinical Notes Dec, Thyroid nodule (ICD-10 - E04.1) [facility] Other 06-16-2023 Evaluation note* Encounter Date Diagnosis [...] done when it comes to her town. [facility] Other 03-13-2023 Evaluation note* Encounter Date Diagnosis Assessment Notes Treatment Notes Treatment Clinical Notes Sep, Anxiety (ICD-10 - F41.9) [employer] Other 03-13-2023 Evaluation note* Encounter Date Diagnosis [...] continue with it today. She saw a uro/petroleum geologist who referred her to physical therapy for pelvic floor therapy. They are going to see if Dr. Martinez feels her issue may be coming from her back. [employer] Other 02-23-2023 Evaluation note* Encounter Date Diagnosis Assessment Notes Treatment Notes Treatment Clinical Notes Aug, Lumbar degenerative disc disease (ICD-10 - M51.36) [facility] Other 02-01-2023 Evaluation note* Encounter Date Diagnosis Assessment Notes Treatment Notes Treatment Clinical Notes Aug, Spinal stenosis (ICD-10 - M48.00) Aug, DDD (degenerative disc disease), lumbar (ICD-10 - M51.36) Aug, Lumbar pain (ICD-10 - M54.50) [facility] Other 01-13-2023 Evaluation note* Encounter Date Diagnosis [...] symptoms. She did see a surgeon in [place] and he told her that she was [...] noticed it turn flaky. She asked her manugrapher who told her she didn't know what [...] (ICD-10 - Z80.41) She will see her petroleum geologist next week to discuss a hysterectomy. She would like to have a CA-125 test done. Her grandmother had ovarian cancer. She voices that she would request a total hysterectomy if she is going to have a hysterectomy. 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 This has only happened a few times. She does feel this when she bends backwards on exam today. [facility] Other 12-28-2022 Evaluation note* Encounter Date Diagnosis Assessment Notes Treatment Notes Treatment Clinical Notes Jun, Lumbar pain (ICD-10 - M54.50) Jun, Lumbar degenerative disc disease (ICD-10 - M51.36) She is not having any radicular symptoms and no urinary tract symptoms. She feels that this is may be related to constipation and would like an order sent to [facility] for an x-ray to see how much stool is present. She is going to see Marty Pugh her physical therapist in [place] next week and hopefully this will help. She has responded well in the past to Medrol Dosepak and would like to have this available to take if desired. side effects/risks/benef its of medication reviewed. Jun, Constipation (ICD-10 - K59.00) Jun, Other 09:15 AM - 09:22 AM [facility] Other 12-19-2022 Evaluation note* Encounter Date Diagnosis [...] the medication. 2:50 PM - 2:58 PM [facility] Other 11-03-2022 Evaluation note* Encounter Date Diagnosis Assessment Notes Treatment Notes Treatment Clinical Notes May, Cystitis (ICD-10 - N30.90) [facility] Other 10-05-2022 Evaluation note* Encounter Date Diagnosis [...] likely fighting something viral a month ago. [facility] Other 09-20-2022 Evaluation note* Encounter Date Diagnosis [...] will return to see the neurosurgeon in [place] for her back. Mar, Other She voices that she had lab drawn through her employer to include cholesterol, she will provide the office with a copy of her results. 8:26 AM - 8:40 AM [facility] Other 08-12-2022 Evaluation note* Encounter Date Diagnosis Assessment Notes Treatment Notes Treatment Clinical Notes Feb, Anxiety (ICD-10 - F41.9) [facility] Other 07-25-2022 Evaluation note* Encounter Date Diagnosis [...] we will help you get into specialist. [facility] Other 07-08-2022 NotePROCEDURE: XR KNEE LT 4V [...] Electronically authenticated by: JENNIFER NICOLAS Date: 2022-01-11 12:09[facility]07-08-2022 Evaluation note* Encounter Date Diagnosis Assessment Notes Treatment Notes Treatment Clinical Notes Jan, Knee pain, left (ICD-10 - M25.562) [facility] Other 07-06-2022 Evaluation note* Encounter Date Diagnosis [...] and is not winded when she runs. [facility] Other 06-07-2022 Evaluation note* Encounter Date Diagnosis Assessment Notes Treatment Notes Treatment Clinical Notes Dec, Anxiety (ICD-10 - F41.9) [facility] Other 06-07-2022 Evaluation note* Encounter Date Diagnosis [...] ts of medication were reviewed. Dec, Other custodial (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 therapy (ICD-10 - Z79.899) I [...] copy of this once it is done. [facility] Other 03-07-2022 Evaluation note* Encounter Date Diagnosis [...] She is considering seeing a pharmacist from [facility] to discuss a different version of Cyanocobalamin that does not contain cyanide, I did advise her that if she does this they can send us a prescription request to sign. Sep, Other She voices that her hair is falling out from having had COVID-19 but it seems to be slowing down. [facility] Other 12-06-2021 Evaluation note* Encounter Date Diagnosis [...] drinking alot of water and began drinking [place] artichoke and feels her symptoms resolved. She [...] to continue with what she is doing. [place] [facility] Other Evaluation + Plan note No data available for this section [facility] [place] Evaluation noteNo InformationNortEncompass Health E-Sign Other Evaluation noteNo assessment information available [facility] Work Phone: Evaluation note* Diagnosis Lumbar radiculopathy- [...] unspecified [facility] Diagnosis Fasciculation- Primary Abnormal involuntary movements Hyperreflexia Abnormal reflex Degeneration of lumbar or lumbosacral intervertebral disc documented [facility] Diagnosis Hyperreflexia Abnormal reflex Syringomyelia and syringobulbia (HCC) Syringomyelia and syringobulbia documented [facility]* Diagnosis Hyperreflexia Abnormal reflex Demyelinating disease of central nervous system (HCC) Demyelinating disease of central nervous system, unspecified documented in this [facility]* Diagnosis Hyperreflexia Abnormal reflex Spinal stenosis of cervical region Spinal stenosis in cervical region Demyelinating disease of central nervous system (HCC) Demyelinating disease of central nervous system, unspecified [facility]* Diagnosis Disturbance of skin sensation- Primary Fasciculation Abnormal involuntary movements Hyperreflexia Abnormal reflex [facility]* Diagnosis Onset Date Resolution Status Abnormal finding on MRI of brain acute Anxiety acute Lipoma acute Twitching acute Vitamin B12 deficiency acute [facility] Work Phone: Evaluation note* Diagnosis AB (obstructive sleep apnea)- Primary Obstructive sleep apnea (adult) (pediatric) Hypersomnia Hypersomnia, unspecified Sleep disturbance Unspecified sleep disturbance Catathrenia Sleep talking Other dysfunctions of sleep stages or arousal from sleep [facility] Brain cyst- Primary Cerebral cysts documented in this [facility]* Diagnosis Restless legs- Primary Restless legs syndrome (RLS) Benign fasciculation-cramp syndrome Unspecified myoneural disorders Hypersomnia Hypersomnia, unspecified PLMD (periodic limb movement disorder) Periodic limb movement disorder Chronic low back pain, unspecified back pain laterality, unspecified whether sciatica present Sleep disturbance Unspecified sleep disturbance [facility] Diagnosis Brain cyst Cerebral cysts [facility]* Diagnosis Nontoxic multinodular goiter (CMS/HCC)- Primary Nontoxic multinodular goiter documented in this encounter [facility]* Diagnosis Heterogeneously dense tissue of both breasts on mammography- Primary documented [facility]* Diagnosis PMB (postmenopausal bleeding)- Primary Postmenopausal bleeding Vaginal atrophy Postmenopausal atrophic vaginitis documented in this encounter [facility]* Diagnosis Well woman exam with routine gynecological exam- Primary Routine gynecological examination Urinary urgency Urgency of urination Screening for osteoporosis Special screening for osteoporosis Postmenopausal Asymptomatic postmenopausal status (age-related) (natural) Hx of osteopenia Vaginal atrophy Postmenopausal atrophic vaginitis [facility] Diagnosis Vaginal lesion- Primary Other specified noninflammatory disorder of vagina [facility]* Diagnosis Vaginal lesion- Primary Other specified noninflammatory disorder of vagina Thickened endometrium Nonspecific (abnormal) findings on radiological and other examination of genitourinary organs [facility]* Diagnosis Onset Date Resolution Status [...] 29 8:59am Vitamin B12 deficiency acute [facility] 2024 8:59am Vitamin D deficiency acute [place] 2024 8:59am [facility] Work Phone: Evaluation note* Diagnosis Postmenopausal- Primary Asymptomatic postmenopausal status (age-related) (natural) DUB (dysfunctional uterine bleeding) [N93.8] Other disorder of menstruation and other abnormal bleeding from female genital tract Thickened endometrium Nonspecific (abnormal) findings on radiological and other examination of genitourinary organs documented in this encounter [facility]* Diagnosis Thickened endometrium- Primary Nonspecific (abnormal) findings on radiological and other examination of genitourinary organs Menopausal symptom Vaginal atrophy Postmenopausal atrophic vaginitis documented in this encounter [facility]* Diagnosis Encounter for screening for cardiovascular disorders documented in this encounter [facility] Work Phone: Evaluation note* Diagnosis Menopausal symptom- Primary documented in this encounter [facility]* Diagnosis Thyroid nodule- Primary Nontoxic uninodular goiter [facility]* Diagnosis Vitreous floaters of left eye- Primary documented in this encounter [facility] general Narrative - Reported* Type Description [...] 2003 200 6 Hospitalization History see above [facility] Other [facility] general Narrative - Reported* Type Description Date [...] 2003 200 6 Hospitalization History see above [facility] Other [facility]xe general Narrative - Reported* Type Description Date [...] 2003 200 6 Hospitalization History see above [facility] Other History general Narrative - Reported* Type [...] 2004 200 6 Hospitalization History see above [facility] Other Hospital Discharge instructions No data available for this section [facility] InstructionsNot on filedocumented in this encounter [facility] Attachments The following attachments cannot be sent through Care Everywhere. * Calcium and vitamin D for bone health (Togolese) documented in this encounterProMedica Health SystemInstructionsNot on file documented in this encounterProMedica Health SystemInstructionsNot on file documented in this encounterProMedica Health SystemInstructionsNot on file documented in this encounterProMedica Health SystemInstructionsNot on file documented in this encounterProMedica Health SystemInstructionsNot on file documented in this encounterProMedica Health SystemInstructionsNot on file documented in this encounterProMedica Health SystemInstructionsNot on file documented in this encounterProThe [facility] SystemProgress note No data available for this section [facility] Reason for referral (narrative)* Diagnostic Procedure Only (Routine) - Closed Specialty Diagnoses / Procedures Referred By Contac t Referred To Contact MR IMAGING Diagnoses Hyperreflexia Syringomyelia and syringobulbia (HCC) Procedures MRI BRAIN WO/W IVCON MRI BRAIN BRAIN STEM W/O W/[place] [address] [place] [address] Mr Imaging [facility] Referral ID Status Reason Start Date Expiration Date V isits Requested Visits Authorized [id number] Closed Auto-Generate d Referral 11/06/2023 07/06/2024 1 1 [facility] for referral (narrative)* Diagnostic Procedure Only (Routine) - Closed Specialty Diagnoses / Procedures Referred By Contac t Referred To Contact MR IMAGING Diagnoses Hyperreflexia Demyelinating disease of central nervous system (HCC) Procedures MRI THORACIC SPINE WO/W IVCON MRI SPINAL CANAL THORACIC W/O & W/[place] [address] [place] [address] Mr Imaging [place] [address] Referral ID Status Reason Start Date Expiration Date V isits Requested Visits Authorized [id number] Closed Auto-Generate d Referral 11/06/2023 07/06/2024 1 1 [facility] for referral (narrative)* Diagnostic Procedure Only (Routine) - Closed Specialty Diagnoses / Procedures Referred By Contac t Referred To Contact MR IMAGING Diagnoses Hyperreflexia Spinal stenosis of cervical region Demyelinating disease of central nervous system (HCC) Procedures MRI CERVICAL SPINE WO/W IVCON MRI SPINAL CANAL CERVICAL W/O & [place] [address] [place] [address] Mr Imaging [facility]95 Referral ID Status Reason Start Date Expiration Date V isits Requested Visits Authorized [id number] Closed Auto-Generate d Referral 11/06/2023 07/06/2024 1 1 [facility] for referral (narrative)No reason for referral [facility] Work Phone: Reason for visit Narrativecontinued back pain, discuss multiple issues, see treatment [facility] Other Reason for visit Narrative* Diagnostic Procedure Only (Routine) - Closed Specialty Diagnoses / Procedures Referred By Contac t Referred To Contact MR IMAGING Diagnoses Hyperreflexia Demyelinating disease of central nervous system (HCC) Procedures MRI THORACIC SPINE WO/W IVCON MRI SPINAL CANAL THORACIC W/O & [place] [address] [place] [address] Mr Imaging [place] [address] Referral ID Status Reason Start Date Expiration Date V isits Requested Visits Authorized [id number] Closed Auto-Generate d Referral 11/06/2023 07/06/2024 1 1 [facility] for visit Narrative* Diagnostic Procedure Only (Routine) - Closed Specialty Diagnoses / Procedures Referred By Contac t Referred To Contact MR IMAGING Diagnoses Hyperreflexia Spinal stenosis of cervical region Demyelinating disease of central nervous system (HCC) Procedures MRI CERVICAL SPINE WO/W IVCON MRI SPINAL CANAL CERVICAL W/O & [place] [address] [place] [address] Mr Imaging [facility]95 Referral ID Status Reason Start Date Expiration Date V isits Requested Visits Authorized [id number] Closed Auto-Generate d Referral 11/06/2023 07/06/2024 1 1 [facility] for visit Narrative* Imaging (Routine) - Pending Review Specialty Diagnoses / Procedures Referred By Contac t Referred To Contact Radiology Diagnoses Encounter for screening for cardiovascular disorders Procedures CT cardiac scoring wo IV contrast Yannick Velázquez, DO [address] [place] [address] Phone: tel: fax: Referral ID Status Reason Start Date Expiration Date Visits Requested Visits Authorized [id number] Pending Review Perform Procedure 10/20/2024 10/20/2025 1 1 [facility] Work Phone: Summary Purpose Family History Relationship [...] Date/ Time Advance Directives No September 16, 024 4:06pm Documents on File Type Date Recorded Patient Credit Administration Manager Expl anation Living Will Documents on File Type Date Recorded Patient Credit Administration Manager Expl anation Living Will History of Present Illness * David Keane - 09/06/2020 2:00 PM EST [facility]ON[facility]IVE [facility] PATIENT HISTORY AND PHYSICAL EXAM PATIENT INFO: Edna Sultana is a 54 year old female. REFERRING M.D.: Yannick Velázquez, DO [address] [place] [id number] Consultation requested by Gisel for an opinion [...] bulge. no blood in urine QUESTIONNAIRE: Questionnaire: [facility] Base Question Answer [...] Thoracic back pain March 22, 2025 2:50pm Chief Complaint Admit Date discuss labs from Specialist February 08, 2025 12:36pm discuss back pain/ review lab March 22, 2025 2:50pm med refill/review US April 06, 2025 3 :15pm Reason for Visit Admit Date Anxiety February 08, 2025 12: 36pm Arm [...] Thoracic back pain March 22, 2025 2:50pm Abdominal pain April 06, 2025 3: 15pm Anxiety April 06, 2025 3: 15pm Burping April 06, 2025 3: 15pm Change in bowel habits April 06, 2025 3:15pm Dysphagia April 06, 2025 3: 15pm Insomnia April 06, 2025 3: 15pm Pectus excavatum April 06, 2025 3: 15pm Thoracic back pain April 06, 2025 3: 15pm Vitamin B12 deficiency April 06, 2025 3:15pm Weight loss April 06, 2025 3: 15pm Reason for Referral Specialty Diagnoses / Procedures Referred By Ryan t Referred To Contact Radiology Diagnoses Heterogeneously dense tissue of both breasts on mammography Procedures NM Molecular breast imaging localization limited area Raven Smith, COLLECTIONS SPECIALIST-NEW ACCOUNTS CLERK [address] [place] [address] Referral ID Status Reason Start Date Expiration Date V isits Requested Visits Authorized [id number] Pending Review 01/07/2024 01/06/2025 5 5 Specialty Diagnoses / Procedures Referred By Ryan t Referred To Contact MR IMAGING Diagnoses Brain cyst Procedures MRI BRAIN WO/W IVCON MRI BRAIN BRAIN STEM W/O W/CONTRAST MATERIAL Janna Gilman [facility] [address] [facility] [place] [id number] [place] [address] Referral ID Status Reason Start Date Expiration Date Visits Requested Visits Authorized [id number] New Request Auto-Generat ed Referral 06/05/2025 1 1 Specialty Diagnoses / Procedures Referred By Ryan t Referred To Contact Diagnoses Hypersomnia Sleep disturbance Catathrenia Sleep talking Procedures Multiple sleep latency test Suzanne Gee DO [address] [place] [address] Referral ID Status Reason Start Date Expiration Date V isits Requested Visits Authorized [id number] Pending Review 04/15/2024 10/12/2024 1 1 Specialty Diagnoses / Procedures Referred By Ryan t Referred To Contact Diagnoses AB (obstructive sleep apnea) Procedures Polysomnography Suzanne Gee DO [address] [place] [address] Referral ID Status Reason Start Date Expiration Date V isits Requested Visits Authorized [id number] Pending Review 04/15/2024 10/12/2024 1 1 Specialty Diagnoses / Procedures Referred By Contac t Referred To Contact Neurology Diagnoses Fasciculation Hyperreflexia Procedures CONSULT TO NEUROLOGY OFFICE/OUTPATIENT [facility] [place] [address] [place] [id number] Referral ID Status Reason Start Date Expiration Date Visits Requested Visits Authorized [id number] Authorized PCP Requested Referral 12/12/2023 12/11/2024 1 1 Specialty Diagnoses / Procedures Referred By Contac t Referred To Contact MR IMAGING Diagnoses Hyperreflexia Demyelinating disease of central nervous system (HCC) Procedures MRI BRAIN WO IVCON MRI BRAIN BRAIN STEM W/[place] [address] [place] [id number] Mr Imaging [place] [address] Referral ID Status Reason Start Date Expiration Date Visits Requested Visits Authorized [id number] Pending Review Auto-Generat ed Referral 10/27/2023 11/25/2024 1 1 Specialty Diagnoses / Procedures Referred By Contac t Referred To Contact MR IMAGING Diagnoses 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) Demyelinating disease of central nervous system (HCC) Procedures MRI THORACIC SPINE WO IVCON MRI SPINAL CANAL THORACIC W/[place] [address] [place] [id number] Mr Imaging [place] [address] Referral ID Status Reason Start Date Expiration Date Visits Requested Visits Authorized [id number] Pending Review Auto-Generat ed Referral 10/27/2023 11/25/2024 [...] CERVICAL W/[place] [address] [place] [address] [place] [address] Referral ID Status Reason Start Date Expiration Date Visits Requested Visits Authorized [id number] Pending Review Auto-Generat ed Referral 10/27/2023 11/25/2024 1 1 Reason appt pt needs cons ult to discuss twitching, numbness right foot, neuropathy Diagnosis 1 Twitching (R25.3) Referral Organization [facility] Family Ninanolberto Gupat Referring Provider First Name Yannick Referring Provider Last Name Gisel Referring Provider Specialty Family Prac loretta Referred Organization [facility] Referred Provider Nathen Hoover Referred Address [address] [place] [place],[address] Referred Provider Specialty Neurology Referral Priority Routine [...] 1 Thyroid nodule (E04. 1) Referral Organization [facility] Family Woodnolberto Gupta Referring Provider First Name Yannick Referring Provider Last Name Gisel Referring Provider Specialty Family Prac loretta Referred Organization [facility] Referred Provider Reza Gorman Referred Address ,[place], [place],[address] Referred Provider Specialty Ear, Nose an d [...] Lumbar degenerative disc disease (M51.36) Referral Organization [facility] Family Woodnolberto Gupta Referring Provider First Name Yannick Referring Provider Last Name Gisel Referring Provider Specialty Family Prac loretta Referred Organization [facility] urosurgery Referred Provider Victorina Martinez Referred Address [address] [address] ,[place],[address] Referred Provider Specialty Neurological Surgery Referral Priority Routine Referral Appointment Date 2022-09-18 General Notes Victorina Cassidy 08/29/2022 01:50:55 PM > referral sent p2p. pt understands she will be contacted to schedule this appt. Victorina Cassidy 08/30/2022 10:55:52 AM > appt scheduled on 09/18/22 at 8:20am Additional Source Comments INFORMATION SOURCE (unrecogn ized section and content) DATE CREATED AUTHOR 11/17/2019 [facility] DATE CREATED AUTHOR AUTHOR'S ORGANIZ ATION 07/06/[address] [facility] DATE CREATED AUTHOR AUTHOR'S ORGANIZ ATION 05/29/2023 [facility] DATE CREATED AUTHOR AUTHOR'S ORGANIZ ATION 10/01/2023 [facility] DATE CREATED AUTHOR AUTHOR'S ORGANIZ ATION 04/22/2024 [facility] DATE CREATED AUTHOR AUTHOR'S ORGANIZ ATION 06/27/2024 [facility] DATE CREATED AUTHOR AUTHOR'S ORGANIZ ATION 07/02/2024 [facility] DATE CREATED AUTHOR AUTHOR'S ORGANIZ ATION 10/27/2024 [facility] DATE CREATED AUTHOR AUTHOR'S ORGANIZ ATION 11/08/2024 [facility] DATE CREATED AUTHOR AUTHOR'S ORGANIZ ATION 12/07/2024 [facility] DATE CREATED AUTHOR AUTHOR'S ORGANIZ ATION 12/23/2024 [facility] DATE CREATED AUTHOR AUTHOR'S ORGANIZ ATION 01/27/2025 [facility] DATE CREATED AUTHOR AUTHOR'S ORGANIZ ATION 03/14/2025 [facility] Source Comments (unrecognize d section and content) In the event this informatio n is protected by the Federal Confidentiality of Alcohol and Drug Abuse Patient Records regulations: The Federal rules restrict any use of the information to criminally investigate or prosecute any alcohol or drug abuse patient.[facility] the event this information is protected by the Federal Confidentiality of Alcohol and Drug Abuse Patient Records regulations: The Federal rules restrict any use of the information to criminally investigate or prosecute any alcohol or drug abuse patient.[facility] the event this information is protected by the Federal Confidentiality of Alcohol and Drug Abuse Patient Records regulations: The Federal rules restrict any use of the information to criminally investigate or prosecute any alcohol or drug abuse patient.[facility] the event this information is protected by the Federal Confidentiality of Alcohol and Drug Abuse Patient Records regulations: The Federal rules restrict any use of the information to criminally investigate or prosecute any alcohol or drug abuse patient.[facility] the event this information is protected by the Federal Confidentiality of Alcohol and Drug Abuse Patient Records regulations: The Federal rules restrict any use of the information to criminally investigate or prosecute any alcohol or drug abuse patient.[facility] the event this information is protected by the Federal Confidentiality of Alcohol and Drug Abuse Patient Records regulations: The Federal rules restrict any use of the information to criminally investigate or prosecute any alcohol or drug abuse patient.[facility] the event this information is protected by the Federal Confidentiality of Alcohol and Drug Abuse Patient Records regulations: The Federal rules restrict any use of the information to criminally investigate or prosecute any alcohol or drug abuse patient.[facility] the event this information is protected by the Federal Confidentiality of Alcohol and Drug Abuse Patient Records regulations: The Federal rules restrict any use of the information to criminally investigate or prosecute any alcohol or drug abuse patient.[facility] the event this information is protected by the Federal Confidentiality of Alcohol and Drug Abuse Patient Records regulations: The Federal rules restrict any use of the information to criminally investigate or prosecute any alcohol or drug abuse patient.[facility] the event this information is protected by the Federal Confidentiality of Alcohol and Drug Abuse Patient Records regulations: The Federal rules restrict any use of the information to criminally investigate or prosecute any alcohol or drug abuse patient.[facility] the event this information is protected by the Federal Confidentiality of Alcohol and Drug Abuse Patient Records regulations: The Federal rules restrict any use of the information to criminally investigate or prosecute any alcohol or drug abuse patient.[facility] the event this information is protected by the Federal Confidentiality of Alcohol and Drug Abuse Patient Records regulations: The Federal rules restrict any use of the information to criminally investigate or prosecute any alcohol or drug abuse patient.[facility] the event this information is protected by the Federal Confidentiality of Alcohol and Drug Abuse Patient Records regulations: The Federal rules restrict any use of the information to criminally investigate or prosecute any alcohol or drug abuse patient.[facility] the event this information is protected by the Federal Confidentiality of Alcohol and Drug Abuse Patient Records regulations: The Federal rules restrict any use of the information to criminally investigate or prosecute any alcohol or drug abuse patient.[facility] the event this information is protected by the Federal Confidentiality of Alcohol and Drug Abuse Patient Records regulations: The Federal rules restrict any use of the information to criminally investigate or prosecute any alcohol or drug abuse patient.[facility]In the event this information is protected by the Federal Confidentiality of Alcohol and Drug Abuse Patient Records regulations: The Federal rules restrict any use of the information to criminally investigate or prosecute any alcohol or drug abuse patient.[facility] the event this information is protected by the Federal Confidentiality of Alcohol and Drug Abuse Patient Records regulations: The Federal rules restrict any use of the information to criminally investigate or prosecute any alcohol or drug abuse patient.[facility]In the event this information is protected by the Federal Confidentiality of Alcohol and Drug Abuse Patient Records regulations: The Federal rules restrict any use of the information to criminally investigate or prosecute any alcohol or drug abuse patient.[facility] Reason for Visit (unrecogniz ed section and [...] STEM W/O W/[place] [address] [place] [id number] [facility] [place] [address] Referral ID Status Reason Start Date Expiration Date V isits Requested Visits Authorized [id number] Closed Auto-Generate d Referral 11/06/2023 07/06/2024 1 1 Reason Comments New Patient Consult Specialty Diagnoses / Procedures Referred By Ryan alejandro Referred To Contact Neurology Diagnoses Fasciculation Hyperreflexia Procedures CONSULT TO NEUROLOGY OFFICE/OUTPATIENT NEW HIGH MDM 60 [place] [address] [place] [address] Referral ID Status Reason Start Date Expiration Date V isits Requested Visits Authorized [id number] Closed PCP Requested Referral 12/12/2023 12/11/2024 1 1 Reason Comments Sleeping Problem Reason Comments Sleeping Problem Specialty Diagnoses / Procedures Referred By Contac t Referred To Contact MR IMAGING Diagnoses Brain cyst Procedures MRI BRAIN WO/W IVCON MRI BRAIN BRAIN STEM W/O W/CONTRAST MATERIAL Janna Gilman MD [address] [place] [place] [id number] [facility] [place] [address] Referral ID Status Reason Start Date Expiration Date V isits Requested Visits Authorized [id number] Closed Auto-Generate d Referral 05/06/2024 06/05/2025 1 [...] HIGH MDM 60 MINUTES Janna Gilman MD [address] [place] [address] Phone: tel: fax: Referral ID Status Reason Start Date Expiration Date V isits Requested Visits Authorized [id number] Closed PCP Requested Referral 10/28/2024 10/28/2025 1 [...] 2024 Team Status: Active Member Role Status Dates Yannick Girvin , DO Primary Care Provide r, Attending Provider Active Start: October 07, 2023 Team Status: Active Member Role Status Dates Yannick Velázquez DO Primary Care Provide r, Attending Provider Active Start: October 25, 2023 Team Status: Inactive Member Role Status Dates Yannick Velázquez DO Primary Care Provide r, Attending Provider Active Start: November 10, 2023 End: November 10, 2023 Team Status: Active Member Role Status Dates [...] September 17, 2023 End: September 17, 2023 Concrete Sculptor Relationship Specialty Start Date End Date Yannick Velázquez DO [address] [place] [address] PCP - General Family Medicine 08/31/20 Yannick Velázquez DO [address] [place] [address] Referring Family Medicine 08/31/20 Concrete Sculptor Relationship Specialty Start Date End Date Yannick Velázquez DO [address] [place] [address] PCP - General Family Medicine 08/31/20 Yannick Velázquez, [address] [place] [address] Referring Family Medicine 08/31/20 Concrete Sculptor Relationship Specialty Start Date End Date Yannick Velázquez DO [address] [place] [address] PCP - General Family Medicine 08/31/20 Yannick Velázquez, [address] [place] [address] Referring Family Medicine 08/31/20 Concrete Sculptor Relationship Specialty Start Date End Date Yannick Velázquez DO [address] [place] [address] PCP - General Family Medicine 08/31/20 Yannick Velázquez DO [address] [place] [address] Referring Family Medicine 08/31/20 Concrete Sculptor Relationship Specialty Start Date End Date Yannick [...] Provider Active St art: September 24, 2023 Concrete Sculptor Relationship Specialty Start Date End Date Girvin, Yannick C, DO [address] [place] [address] PCP - General Family Medicine 08/31/20 Yannick Velázquez, DO [address] [place] [address] Referring Family Medicine 08/31/20 Concrete Sculptor Relationship Specialty Start Date End Date Yannick Velázquez, DO [address] [place] [address] PCP - General [facility] 08/31/20 Yannick Velázquez, DO [address] [place] [address] Referring Family Medicine 08/31/20 Concrete Sculptor Relationship Specialty Start Date End Date Yannick Velázquez, DO [address] [place] [id number] PCP - General [facility] 08/31/20 Yannick Velázquez, DO [address] [place] [address] Referring Family Medicine 08/31/20 Concrete Sculptor Relationship Specialty Start Date End Date Yannick Velázquez, DO [address] [place] [address] PCP - General Family Medicine 08/31/20 Yannick Velázquez, DO [address] [place] [address] Referring Family Medicine 08/31/20 Concrete Sculptor Relationship Specialty Start Date End Date Yannick Velázquez, DO [address] [place] [address] PCP - General Family Medicine 08/31/20 Yannick Velázquez DO [address] [place] [address] Referring Family Medicine 08/31/20 Concrete Sculptor Relationship Specialty Start Date End Date Yannick Velázquez DO [address] [place] [address] PCP - General Family Medicine 08/31/20 Yannick [...] March 24, 2024 End: March 24, 2024 Concrete Sculptor Relationship Specialty Start Date End Date Yannick Velázquez MD [address] [place] [id number] PCP - General Family Medicine 01/08/23 Concrete Sculptor Relationship Specialty Start Date End Date Yannick Velázquez MD [address] [place] [id number] PCP - General Family Medicine 01/08/23 Concrete Sculptor Relationship Specialty Start Date End Date Yannick Velázquez MD [address] [place] [id number] PCP - General Family Medicine 01/08/23 Concrete Sculptor Relationship Specialty Start Date End Date Yannick Velázquez DO [address] [place] [address] PCP - General Family Medicine 08/31/20 Yannick Velázquez DO [address] [place] [address] Referring Family Medicine 08/31/20 Concrete Sculptor Relationship Specialty Start Date End Date Yannick Velázquez MD [address] [place], [place] [id number] PCP - General [facility] Medicine 01/08/23 Concrete Sculptor Relationship Specialty Start Date End Date Yannick Velázquez DO [address] [place], [place] [address] PCP - General 06/11/17 Concrete Sculptor Relationship Specialty Start Date End Date Yannick Velázquez DO [address] [place], [place] [id number] PCP - General 06/11/17 Concrete Sculptor Relationship Specialty Start Date End Date Yannick Velázquez DO [address] [place] [address] [place] [address] PCP - General 06/11/17 Concrete Sculptor Relationship Specialty Start Date End Date Yannick Velázquez DO [address] [place] [address] [place] [address] PCP - General 06/11/17 Concrete Sculptor Relationship Specialty Start Date End Date Yannick Velázquez DO [address] [place] [address] [place] [address] PCP - General 06/11/17 Concrete Sculptor Relationship Specialty Start Date End Date Yannick Velázquez DO [address] [place] [place], [place] [address] PCP - General 06/11/17 Team Status: Inactive Member Role Status Dates Yannick Velázquez DO Primary Care Provide r, Attending Provider Active Start: October 20, 2024 End: October 20, 2024 Concrete Sculptor Relationship Specialty Start Date End Date Yannick Velázquez DO [address] [place] [address] PCP - General 06/11/17 Concrete Sculptor Relationship Specialty Start Date End Date Yannick Velázquez DO [address] [place] [address] PCP - General 06/11/17 Concrete Sculptor Relationship Specialty Start Date End Date Yannick Velázquez DO [address] [place] [address] PCP - General 06/11/17 Concrete Sculptor Relationship Specialty Start Date End Date Yannick Velázquez DO [address] [place], [place] [address] PCP - General 01/18/19 Team Status: Inactive [...] January 03, 2025 End: January 03, 2025 Concrete Sculptor Relationship Specialty Start Date End Date Yannick Velázquez MD [address] [place], [place] [id number] PCP - General Family Medicine 01/08/23 Concrete Sculptor Relationship Specialty Start Date End Date Yannick Velázquez MD [address] [place] [address] PCP - General Family Medicine 01/08/23 Concrete Sculptor Relationship Specialty Start Date End Date Yannick Velázquez MD [address] [place] [address] PCP - General Family Medicine 01/08/23 Team Status: Inactive Member Role Status Dates Yannick Velázquez DO Primary Care Provider Active S tart: February 08, 2025 End: February 08, 2025 Yannick Velázquez DO Attending Provider Active Star t: February 08, 2025 End: February 08, 2025 Concrete Sculptor Relationship Specialty Start Date End Date Yannick Velázquez DO [address] [place] [address] PCP - General Family Medicine 08/31/20 Yannick Velázquez DO [address] [place] [address] [facility] Family Medicine 08/31/20 Team Status: Inactive Member Role Status Dates Yannick Velázquez DO Primary Care Provider Active S tart: March 22, 2025 End: March 22, 2025 Yannick Velázquez DO Attending Provider Active Star t: March 22, 2025 End: March 22, 2025 Team Status: Inactive Member Role Status Dates Yannick Velázquez DO Primary Care Provider Active S tart: April 06, 2025 End: April 06, 2025 Yannick Velázquez DO Attending Provider Active Star t: April 06, 2025 End: April 06, 2025 Goals (unrecognized section and content) Goals [...] BASED ON THE PRIMARY CLINICAL RECORDS. [facility]. provides no warranty or guarantee of the accuracy or completeness of information in this document.
--- NOTE | 2025-04-12 10:20 | FL_ITS ---
The [address] [address] Patient Name: BALA SULTANA MRN: [id number] date: 1965 Sex: F Assigned Patient Location: [place] Current Patient Location: [place] Accession/Order Number: [id number] Exam Date: 04/12/2025 10:00 Report Date: 04/12/2025 10:57 At the request of: YANNICK BATRES Procedure: FL cineradiography DOUBLE CONTRAST UPPER GI SERIES CLINICAL HISTORY: Burping, Abdominal Pain COMPARISON: None TECHNIQUE: Double contrast upper GI series was performed. 4.1 minutes of fluoroscopic time was utilized. FINDINGS: Esophagus appears somewhat tortuous without stricture, mass or ulcer. GE junction appears normal. There appears to be gastroesophageal reflux to the level of the distal esophagus. No tertiary contractions were noted. Stomach appears grossly unremarkable. Duodenum appears grossly unremarkable. FL/FL cineradiography IMPRESSION: GASTROESOPHAGEAL REFLUX WAS SEEN TO THE LEVEL OF THE DISTAL ESOPHAGUS WITHOUT STRICTURE, MASS OR ULCER. NO TERTIARY CONTRACTIONS. MILD TORTUOSITY OF THE ESOPHAGUS. IF FURTHER EVALUATION IS NEEDED, ENDOSCOPY IS SUGGESTED. Impression dictated by: Pranay Thomson Jr., D.O. 04/12/2025 10:57 AM Dictation Location: [facility] Electronically authenticated by: [id number] Y Date: 04/12/2025 10:57
--- NOTE | 2025-04-12 10:20 | FL_ITS ---
The [address] [address] Patient Name: BALA SULTANA MRN: [id number] date: 1965 Sex: F Assigned Patient Location: CT Current Patient Location: CT Accession/Order Number: [id number] Exam Date: 04/12/2025 10:00 Report Date: 04/12/2025 10:57 At the request of: YANNICK BATRES Procedure: FL cineradiography DOUBLE CONTRAST UPPER GI SERIES CLINICAL HISTORY: Burping, Abdominal Pain COMPARISON: None TECHNIQUE: Double contrast upper GI series was performed. 4.1 minutes of fluoroscopic time was utilized. FINDINGS: Esophagus appears somewhat tortuous without stricture, mass or ulcer. GE junction appears normal. There appears to be gastroesophageal reflux to the level of the distal esophagus. No tertiary contractions were noted. Stomach appears grossly unremarkable. Duodenum appears grossly unremarkable. FL/FL upper GI w air IMPRESSION: GASTROESOPHAGEAL REFLUX WAS SEEN TO THE LEVEL OF THE DISTAL ESOPHAGUS WITHOUT STRICTURE, MASS OR ULCER. NO TERTIARY CONTRACTIONS. MILD TORTUOSITY OF THE ESOPHAGUS. IF FURTHER EVALUATION IS NEEDED, ENDOSCOPY IS SUGGESTED. Impression dictated by: Pranay Thomson Jr., D.O. 04/12/2025 10:57 AM Dictation Location: [facility] Electronically authenticated by: [id number] Y Date: 04/12/2025 10:57
== END 2025-04-12 09:38 | disposition home or self-care (01) ==
LOC: FL 09:38
PROVIDERS: PCP Family Medicine; Visit Provider Family Medicine
DX: R14.2 Eructation (principal); R10.9 Unspecified abdominal pain; K21.9 Gastro-esophageal reflux disease without esophagitis
CPT/HCPCS: 74246; 76120